=== PATIENT | female | born 1940 | race Caucasian/White ===

== ENCOUNTER 2018-05-01 05:29 | Outpatient (REF) | payer MEDICARE, OTHER, SELFPAY ==
[2018-05-01 06:24] LABS: Bilirubin Negative (Negative); Blood Trace-lysed (Negative); Clarity Sl Cloudy; Glucose Negative (Negative); Ketones Negative (Negative); Leukocyte Esterase Small (Negative); Nitrite Negative (Negative); Urobilinogen 0.2 EU/dL (Up TO 0.2)
[2018-05-01 06:30] LABS: WBC >50 HPF (0-5)
[2018-05-01 06:31] LABS: Bacteria Moderate HPF (Negative); C & S Indicated? Yes; Casts Negative LPF (Negative); Crystals Negative HPF (Negative); Epithelial Cells Few HPF (Negative); Mucus Negative (Negative)
== END 2018-05-01 05:49 ==
LOC: LBN 05:29
PROVIDERS: PCP Nurse Practitioner Family; Visit Provider Nurse Practitioner Family
DX: R50.9 Fever, unspecified (principal); R82.90 Unspecified abnormal findings in urine
CPT/HCPCS: 81003; 81015; 87086

== ENCOUNTER 2018-05-03 14:41 | Emergency (ER) | payer MEDICARE, OTHER, SELFPAY ==
[2018-05-03 14:39] VITALS: BP 60/43; PULSE 74; RESP 18; TEMP 36.9; O2SAT 97
[2018-05-03 14:50] VITALS: BP 72/42
--- NOTE | 2018-05-03 14:51 | W.ED.GENAD ---
Discharge Plan Disposition Patient Disposition: [facility] Condition: Fair Discharge Details Chief Complaint: Dizzy/Sync Clinical Impression: Hypotension, Acute dehydration, Hypomagnesemia Primary Care Provider: Jessica Ramos ED Provider: Rosana Billingsley Discharge Instructions Instructions: Dehydration (ED), Hypomagnesemia (ED) Additional Instructions: Please encourage hydration. She should have her magnesium, lactate and CBC reassess tomorrow. Please begin magnesium supplementation daily. Please follow-up with primary care provider within the next 48 hours. If she develops recurrent hypotension, chest pain, shortness of breath, fever or other new/worsening symptoms please seek care urgently once again Referrals: Jessica Ramos [Primary Care Provider] - Discharge Data Discharge Date/Time-TO BE ENTERED AT DEPARTURE: 05/03/18 20:58 Medical Decision Making MDM Narrative Medical decision making narrative: Patient presents today with chief complaint of hypotension. Upon arrival, the automatic blood pressure is found to be 60/43, manual 72/42. Only taking blood pressure in the right arm is patient has history of breast cancer and blood pressures are not to be taken on the left side. Patient reports that she is feeling slightly lightheaded. Appears otherwise well. Her neuro exam is limited secondary to her quadriplegia. She is able to move her left foot slightly as well as her bilateral hands, more so the right than the left. She denies any headache. No shortness of breath, chest pain. Vital signs are otherwise stable. She is not tachycardic, tachypneic, hypoxic. She is afebrile. Denies any cough. Reports that she has been afebrile. Has responded well to fluids over the weekend. We will attempt fluid resuscitation obtain laboratory evaluation. I did consider possibly stemming from her recent neurologic injury. However, it seems too far out to be related as her injury was March 14. Patient has not been on any steroids recently. She does take Lisinopril daily, unclear if she has received this recently. Laboratory evaluation significant for a magnesium of 1.1. Troponin is less than 0.02. No leukocytosis. No anemia. Chemistries are pending. We will begin replenishing the magnesium. There is delay in the chemistries being processed secondary to the blood work having been drawn at outside facility. I did contact the lab, approximately 2 hours after initial orders and they are now performing a chemistry Chemistries are significant abnormality, in particular, the potassium is within normal limits Discussed the case with Dr. Greene. We discussed the possible sources of her hypotension for the past few days. It is unlikely given the length since her injury that this is neurogenic. We discussed it could be infected particularly she is having difficulty with sensing any areas of infection. We will obtain a urinalysis and chest x-ray. Will also obtain a lactate. Will be also evaluated the labs and advised patient is appearing dehydrated given the bicarb and anion gap. Patient is received 1 L fluid thus far. Is receiving 4 g of IV magnesium. Chest x-ray reviewed by radiologist. They advised bilateral interstitial pattern of chronic changes in the lungs. Poor visualization of the right costophrenic angle, small effusion versus chronic pleural parenchymal changes per no pneumothorax. No cardiomegaly. Patient hydrating orally. Responded well to hydration. Has recieved magnesium. Her BP has been stable since receiving fluids, BP currently 118/64. She reports that she is feeling much improved, no longer having feeling of lightheadedness. I am concerned that the patient is dehydrated as she is unable to hydrate herself secondary to her recent injury and associated neurologic deficits. She reports that she asks people to give her a drink when they visit. However, I am concerned that, given her very pleasant demeanor and wish to not put others out, she is not getting as much hydration as she needs. We discussed needing to ask for this more. Luckily, the patient is in a place at this time that staff can assist her with this further. Hypomagnesemia may also have been contributing her her poor feeling and has been replenished. She is able to be followed closely and hydration be increased by staff. I have asked that patients blood work be reassessed tomorrow. ADvised on new/worsening symptoms and when to seek care urgently once again. Encouraged hdyration. Discussed plan with patient who is in agreeent, all of her questions adn concerns were addressed. HPI - General Adult General Mode of arrival: EMS. Date/Time Provider Initiated Documentation: 05/03/18 14:47. Limitations to Documentation: no limitations. Information obtained by: patient. HPI Narrative: Patient is 78-year-old female presenting today with chief complaint of hypotension. Patient was transferred here from [facility] where she is currently undergoing rehabilitation after spinal cord injury. She reports that on March 14 she fell and suffered an injury to her neck resulting in near total quadriplegic. She reports she is regaining some of the movement of her left foot and bilateral upper extremities. States that for the past 3 days she has been having difficulty with hypotension with blood pressures in the 60s over 40s. She reports that typically her blood pressures no low reports systolic of 110-120 is typical. Patient states that she feels lightheaded at times when blood pressure is low. She reports that when she becomes lightheaded she asked nursing staff to reassess her blood pressure. She reports that they are taking both manually and automatically. Her symptom of lightheadedness has reliably been at times when blood pressure has been low. Patient has history of anterior spinal artery compression syndrome, quadriplegia, intracranial injury, nondrug cerebral aneurysm, bradycardia, essential hypertension, GERD, type 2 diabetes, abdominal aortic aneurysm without rupture, breast cancer. EMS reports that blood pressure was 90/54 when he first arrived and was noted to be 93/59 in route. 97% on room air, heart rate of 74. Patient reports feeling well in the ambulance reports that she is currently having some lightheadedness. She denies any chest pain, difficulty breathing, shortness of breath. Patient takes daily aspirin, atorvastatin, 40 mg subcu Lovenox lisinopril, metformin. Related Data Allergies Allergy/AdvReac Type Severity Reaction Status Date / Time No Known Allergies Allergy Unverified 05/03/18 17:03 General Stated Complaint: Dizzy/Sync BEVERLY: 2 Review of Systems Constitutional Reports as per HPI, Denies chills, Denies fatigue, Denies fever(s) and Denies headache(s) Eyes Patient Reports as per HPI and Denies change in vision ENT Denies headache(s) Cardiovascular Denies chest pain, Denies chest pain at rest, Denies chest pain with activity, Denies pedal edema, Denies edema, Denies dyspnea and Denies dyspnea on exertion Respiratory Denies chest congestion, Denies cough, Denies dyspnea and Denies dyspnea on exertion Gastrointestinal Reports as per HPI, Denies change in bowel habits and Denies vomiting Genitourinary Reports other (patient has catheter placed) Musculoskeletal Reports as per HPI Integumentary/Breasts Denies rash Neurologic Reports as per HPI and Denies headache(s) Endocrine Denies fatigue Exam Const General: cooperative, healthy appearing, comfortable, no acute distress, well developed and well groomed Nutritional Appearance: overweight Orientation: alert and awake HENMT Head: normal to inspection and normocephalic Ears: hearing grossly normal bilaterally, external ears normal and TM's normal bilaterally General nose exam: external nose normal Mouth: oral mucosae normal Throat: posterior oropharynx normal Eyes General: appearance normal, both eyes and all related structures Eyelids: eyelids normal Conjunctivae: conjunctivae normal Pupils: PERRL EOM: EOM intact bilaterally Neck Neck: not normal to visual inspection (patient in collar in the post operative setting) Resp Effort & Inspection: normal respiratory effort, able to speak in complete sentences and no respiratory distress Auscultation: clear to auscultation bilaterally Cardio Rate: regular rate Rhythm: regular rhythm Heart Sounds: S1 normal and S2 normal GI Inspection: normal to inspection, no abdominal wall ecchymosis and no edema Palpation: soft, no hepatosplenomegaly, no guarding, not rigid and nontender Auscultation: normal bowel sounds Skin General skin exam: no rashes or lesions noted Lesions: no lesions Rashes: no rashes Neuro General: alert, awake and oriented x3 Cognition: normal cognition Speech: speech normal Motor: strength not 5/5 throughout (Patient is able to move the right hand some, left arm is weaker. Able to move right toes, no movement in LLE. Patient reports this is typical and continues to improve) Sensory Exam: sensory deficits noted (sensory deficits noted throughout) Course Vital Signs Temperature 36.9 C 05/03/18 14:39 Pulse 74 05/03/18 14:39 Respiratory Rate 18 05/03/18 14:39 Blood Pressure 60/43 L 05/03/18 14:39 Pulse Oximetry 97 05/03/18 14:39 Temperature 36.9 C 05/03/18 14:39 Pulse 74 05/03/18 14:39 Respiratory Rate 18 05/03/18 14:39 Blood Pressure 72/42 L 05/03/18 14:50 Pulse Oximetry 97 05/03/18 14:39
[2018-05-03] MEDS: Normal Saline Flush 10 ML SYR IVP (15:10)
[2018-05-03] MEDS: Normal Saline 1,000 ML 1000 ML IV (15:10)
[2018-05-03 15:56] LABS: Magnesium 1.1 mg/dL (1.8-2.4)
[2018-05-03 15:58] LABS: Troponin I < 0.02 ng/mL (0.00-0.06)
[2018-05-03 16:51] LABS: Abs Immature Grans 0.02 k/cumm (0.0-0.09); Absolute Basophil Count 0.04 k/cumm (0.0-0.2); Absolute Monocyte Count 0.49 k/cumm (0.11-0.7); Absolute Neutrophil Count 3.39 k/cumm (1.2-6.7); Basophils % 0.7; Immature Grans % 0.3; Lymphocytes % 29.8; Mean Corp. HGB Concentration 32.4 g/dL (32.0-36.0); Mean Corpuscular Hemoglobin 30.7 pg (27.0-33.0); Mean Corpuscular Volume 94.6 fL (80-95); Mean Platelet Volume 10.5 fL (8.0-11.0); Monocytes % 8.1; Neutrophils % 56.1; Platelet Count 187 x1000/uL (130-400); RBC 3.91 m/cumm (4.00-5.20); RBC Distribution Width 13.2 % (11.7-14.6); White Blood Cell Count 6.04 k/cumm (4.4-10.8)
[2018-05-03 16:58] VITALS: RESP 18
[2018-05-03] MEDS: MAGNESIUM SULFATE 4 GM/100 ML BAG IVPB (17:00)
[2018-05-03 17:36] LABS: ALT 83 U/L (12-78); AST 53 U/L (15-37); Albumin 2.9 g/dL (3.4-5.0); Alkaline Phosphatase 69 U/L (46-116); Anion Gap 12.4 mmol/L (3-11); BUN 15 mg/dL (7-18); Bilirubin, Total 0.4 mg/dL (0.2-1.0); CO2 20.6 mmol/L (21.0-32.0); CREATININE 0.95 mg/dL (0.55-1.02); Calcium 8.8 mg/dL (8.5-10.1); Chloride 99 mmol/L (98-107); Estimated GFR 56.89 (mL/min/1.73m2); Glucose 108 mg/dL (70-100); Potassium 3.9 mmol/L (3.5-5.1); Sodium 132 mmol/L (136-145); Total Protein 6.5 g/dL (6.4-8.2)
--- NOTE | 2018-05-03 17:51 | DI.RAD_ITS ---
SYMPTOM/DIAGNOSIS: HYPOTENSION AP CHEST: Increased interstitial markings are noted in the lungs consistent with chronic change. No infiltrate is seen. The possibility of a small pleural effusion could not be entirely excluded on the right side. There is no pneumothorax. The heart is unremarkable. The mediastinum is unremarkable. Orthopedic hardware is noted in the cervical spine. IMPRESSION: Bilateral interstitial pattern consistent with chronic pulmonary disease. There is poor visualization of the right costophrenic angle which could represent a small pleural effusion or chronic scarring.
[2018-05-03] MEDS: Normal Saline 250 ML 500 ML IV (18:00)
[2018-05-03 18:23] LABS: Lactate-non-spesis 2.4 mmol/L (0.6-1.4)
[2018-05-03 18:46] LABS: Bilirubin Negative (Negative); Blood Negative (Negative); Clarity Clear; Glucose Negative (Negative); Ketones Negative (Negative); Leukocyte Esterase Small (Negative); Nitrite Negative (Negative); Urobilinogen 0.2 EU/dL (Up TO 0.2)
[2018-05-03 18:59] LABS: Epithelial Cells Few HPF (Negative); RBC Negative (0-2); WBC 20-50 HPF (0-5)
[2018-05-03 19:00] LABS: Bacteria Negative HPF (Negative); C & S Indicated? Yes; Casts Negative LPF (Negative); Crystals Few Calcium Oxalate HPF (Negative); Mucus Negative (Negative)
--- NOTE | 2018-05-03 19:49 | DI.VRAD_ITS ---
EXAM: XR Chest, 1 View CLINICAL HISTORY: 78 years old, female; Signs and symptoms; Other: Hypotension; Prior surgery TECHNIQUE: Frontal view of the chest. COMPARISON: CT - CHEST WITHOUT CONTRAST 03/12/2017 1:54 PM FINDINGS: Lungs: Bilateral interstitial pattern of chronic changes in the lungs. No acute infiltrates. Pleural space: Cannot rule out small pleural effusion on the right. No pneumothorax. Heart: Unremarkable. No cardiomegaly. Mediastinum: Unremarkable. Bones/joints: Orthopedic hardware cervical spine, status post posterior instrumentation. IMPRESSION: Bilateral interstitial pattern of chronic changes in the lungs. Poor visualization of the right costophrenic angle, small effusion versus chronic pleuroparenchymal changes. Dictated and Authenticated by: Glen Mora MD. Ordering:KATHLEEN REES MD
[2018-05-03 20:46] VITALS: BP 118/64; PULSE 64; RESP 20; TEMP 36.3; O2SAT 99
== END 2018-05-03 20:58 | disposition intermediate care facility (04) ==
PROVIDERS: Emergency Provider Physician Assistant; PCP Nurse Practitioner Family
DX: I95.9 Hypotension, unspecified (principal); E86.0 Dehydration; E83.42 Hypomagnesemia; E11.9 Type 2 diabetes mellitus without complications; Z79.84 Long term (current) use of oral hypoglycemic drugs
CPT/HCPCS: 36415; 80053; 87077; 96361; 96374; 99284; 71045; 81003; 81015; 83605; 83735; 84443; 84484; 85025; 87086; 87186; J3475

== ENCOUNTER 2018-05-03 14:59 | Outpatient (REF) | payer MEDICARE, OTHER, SELFPAY | END 2018-05-03 15:19 | LOC: LBN 14:59 | PROVIDERS: PCP Nurse Practitioner Family; Visit Provider Family Medicine | DX: E11.9 Type 2 diabetes mellitus without complications (principal); I70.0 Atherosclerosis of aorta; Z85.3 Personal history of malignant neoplasm of breast | CPT/HCPCS: 80053; 85027 ==

== ENCOUNTER 2018-05-05 08:07 | Outpatient (CLI) | payer MEDICARE, OTHER, SELFPAY ==
[2018-05-05 08:01] LABS: HCT 35.6 % (36.0-46.0); HGB 11.7 g/dL (12.0-15.5); Mean Corp. HGB Concentration 32.9 g/dL (32.0-36.0); Mean Corpuscular Hemoglobin 31.5 pg (27.0-33.0); Mean Corpuscular Volume 95.7 fL (80-95); Mean Platelet Volume 10.1 fL (8.0-11.0); Platelet Count 176 x1000/uL (130-400); RBC 3.72 m/cumm (4.00-5.20); RBC Distribution Width 13.2 % (11.7-14.6); White Blood Cell Count 5.97 k/cumm (4.4-10.8)
[2018-05-05 08:20] LABS: Magnesium 1.4 mg/dL (1.8-2.4)
== END 2018-05-05 08:27 ==
PROVIDERS: PCP Nurse Practitioner Family; Visit Provider Nurse Practitioner Family
DX: I10 Essential (primary) hypertension (principal); E11.9 Type 2 diabetes mellitus without complications; K21.9 Gastro-esophageal reflux disease without esophagitis
CPT/HCPCS: 36415; 85027; 83605; 83735

== ENCOUNTER 2018-05-14 07:29 | Outpatient (REF) | payer MEDICARE, OTHER, SELFPAY ==
[2018-05-14 09:59] LABS: Magnesium 1.3 mg/dL (1.8-2.4)
== END 2018-05-14 07:49 ==
LOC: LBN 07:29
PROVIDERS: PCP Nurse Practitioner Family; Visit Provider Family Medicine
DX: G82.50 Quadriplegia, unspecified (principal); I10 Essential (primary) hypertension; E11.9 Type 2 diabetes mellitus without complications; E83.42 Hypomagnesemia
CPT/HCPCS: 83735

== ENCOUNTER 2018-06-22 14:55 | Outpatient (REF) | payer MEDICARE, OTHER, SELFPAY ==
[2018-06-22 16:32] LABS: Bilirubin Negative (Negative); Blood Negative (Negative); Clarity Clear; Glucose Negative (Negative); Ketones Negative (Negative); Leukocyte Esterase Negative (Negative); Nitrite Negative (Negative); Specific Gravity <= 1.005 (1.005-1.025); Urobilinogen 0.2 EU/dL (Up TO 0.2); pH 5.5 (5-8)
== END 2018-06-22 15:15 ==
LOC: LBN 14:55
PROVIDERS: PCP Nurse Practitioner Family; Visit Provider Family Medicine
DX: R50.9 Fever, unspecified (principal)
CPT/HCPCS: 81003

== ENCOUNTER 2018-06-23 16:05 | Emergency (ER) | payer MEDICARE, OTHER, SELFPAY ==
[2018-06-23] VITALS (16 sets, daily range): BP systolic 103–119; BP diastolic 56–71; PULSE 71–94; RESP 18–28; TEMP 36.9–37.1; O2SAT 95–98
[2018-06-23 16:47] LABS: BE (Venous) 0.1 mmol/L (-3-3); HCO3 (Venous) 24 mmol/L (22-28); O2 Sat (Venous) 95 % (70-80); TCO2 (Venous) 22 mmol/L (22-29); pCO2 (Venous) 34 mm/Hg (34-47); pH (Venous) 7.46 (7.32-7.43); pO2 (Venous) 65 mm/Hg (28-44)
[2018-06-23 16:57] LABS: Abs Immature Grans 0.04 k/cumm (0.0-0.09); Absolute Basophil Count 0.02 k/cumm (0.0-0.2); Absolute Eosinophil Count 0.05 k/cumm (0.0-0.7); Absolute Lymphocyte Count 2.25 k/cumm (1.2-3.4); Absolute Monocyte Count 0.67 k/cumm (0.11-0.7); Absolute Neutrophil Count 3.87 k/cumm (1.2-6.7); Basophils % 0.3; Eosinophils % 0.7; HCT 34.7 % (36.0-46.0); HGB 11.6 g/dL (12.0-15.5); Immature Grans % 0.6; Lymphocytes % 32.6; Mean Corp. HGB Concentration 33.4 g/dL (32.0-36.0); Mean Corpuscular Hemoglobin 30.8 pg (27.0-33.0); Mean Platelet Volume 10.2 fL (8.0-11.0); Monocytes % 9.7; Neutrophils % 56.1; Platelet Count 195 x1000/uL (130-400); RBC 3.77 m/cumm (4.00-5.20); RBC Distribution Width 15.2 % (11.7-14.6)
[2018-06-23 17:05] LABS: ALT 30 U/L (12-78); AST 34 U/L (15-37); Albumin 2.7 g/dL (3.4-5.0); Alkaline Phosphatase 65 U/L (46-116); Anion Gap 11.3 mmol/L (3-11); BUN 15 mg/dL (7-18); Bilirubin, Total 0.5 mg/dL (0.2-1.0); CO2 23.7 mmol/L (21.0-32.0); CREATININE 0.82 mg/dL (0.55-1.02); Calcium 9.2 mg/dL (8.5-10.1); Chloride 95 mmol/L (98-107); Glucose 92 mg/dL (70-100); Potassium 4.2 mmol/L (3.5-5.1); Sodium 130 mmol/L (136-145); Total Protein 6.7 g/dL (6.4-8.2)
[2018-06-23 17:12] LABS: Troponin I < 0.02 ng/mL (0.00-0.06)
--- NOTE | 2018-06-23 18:35 | W.ED.GENAD ---
Discharge Plan Disposition Patient Disposition: HOME Condition: Good Discharge Details Chief Complaint: Fever Clinical Impression: Tachypnea, Pneumonia Reason For Visit: AG Primary Care Provider: Jessica Ramos ED Provider: Evaristo Telles Home Meds and New Rx's Prescriptions: No Action multivitamin Tablet 1 tab PO DAILY RF: 0 metformin 500 mg Tablet 500 mg PO BID RF: 0 anastrozole 1 mg Tablet 1 mg PO DAILY RF: 0 sennosides [senna] 8.6 mg Tablet 8.6 mg PO BID RF: 0 atorvastatin 10 mg Tablet 10 mg PO HS RF: 0 melatonin 3 mg Tablet 3 mg PO PRN PRNRF: 0 aspirin 81 mg Tablet,Delayed Release (Dr/Ec) 81 mg PO DAILY RF: 0 acetaminophen 500 mg Tablet 1,000 mg PO TID RF: 0 baclofen 10 mg Tablet 10 mg PO TID RF: 0 pantoprazole [Protonix] 40 mg Tablet,Delayed Release (Dr/Ec) 40 mg PO DAILY RF: 0 lidocaine [Lidoderm] 5 % Adhesive Patch,Medicated 5 patch Transdermal RF: 0 carbamide peroxide [Debrox] 6.5 % Drops 5 drp otic (ear) BID RF: 0 docusate sodium 100 mg Capsule 100 mg PO BID RF: 0 collagenase clostridium histo. [Santyl] 250 unit/gram Ointment Topical DIRECTED RF: 0 amoxicillin-pot clavulanate [Augmentin] 875-125 mg Tablet 1 tab PO BID RF: 0 enoxaparin [Lovenox] 40 mg/0.4 mL Syringe 40 mg subcut DAILY RF: 0 magnesium oxide 400 mg Capsule 400 mg PO BID RF: 0 Discharge Instructions Instructions: Pneumonia (ED) Additional Instructions: Please continue taking your antibiotic. if you notice any worsening of your symptoms, or any new symptoms such as vomiting, diarrhea, fever, chills, shortness of breath, chest pain, numbness, weakness, or fainting , please return immediately to the emergency department for reevaluation. Please follow up with your primary care provider as soon as possible for reassessment and reevaluation. As always, it was a pleasure participating in your medical care today. Referrals: Jessica Ramos [Primary Care Provider] - Discharge Data Discharge Date/Time-TO BE ENTERED AT DEPARTURE: 06/23/18 18:49 Medical Decision Making This is a pleasant 78-year-old female with a history of quadriplegia who was recently diagnosed with pneumonia and started on Augmentin on an outpatient basis roughly 24 hours ago. At the patient's care facility was concerned that she was to tachypneic in the 50s, had a mild fever, and was diaphoretic. On EMS arrival her oxygen saturations are normal, her breathing rate was in the 20s-30s. Patient had no complaints at that time aside from mild cough. She showed no signs of respiratory distress. She is brought here for further evaluation. On arrival patient did have some sweating on her face, however she made very clear that I always sweat my face, they took away my damn fan and now I am extra sweaty. To her point she shows no signs of diaphoresis or sweatiness anywhere else on her body. The remainder of her physical exam does demonstrate some crackles in the left base, no fever, tachycardia, or hypoxemia. Here in the emergency department her respiratory rate is 20-25. She has belly breathing, but this is what she normally breathes at with her chronic quadriplegia and chronic weakness in position. Because of her initial symptoms laboratory workup was performed, and demonstrates no significant white count, bandemia, renal dysfunction, or significant dehydration. She is slightly hyponatremic at 130, ABG demonstrates a relatively benign pH with minimal alkalosis, most likely secondary to a respiratory component. No evidence of CO2 retention. No signs of hypoxemia. Patient did not require any supplemental oxygen to maintain a stable oxygen saturation. Troponin was normal, EKG was benign. After a unremarkable laboratory workup, normal vital signs, and a reassuring physical exam we did contact the physician on-call at her facility. We discussed the case, physical exam findings, and current clinical scenario. After review of the labs, and the patient scenario, we did elect with the approval of the on-call care facility physician for return to the facility. I feel that she can be continued on her home Augmentin. We discussed red flags for which to return. Plan was discussed with the on-call physician and she agreed. I have extensively reviewed the treatment plan with the patient. I have addressed all patient concerns at this time. I have also discussed the plan with the on-call facility physician and they agree with the current assessment and plan and have agreed to assume responsibility for the patient. All parties demonstrate verbal understanding and agreement with our assessment and plan at this time. AP CHEST: There is a poor inspiration. Cardiac silhouette is within normal limits. The pulmonary vasculature is within normal limits. There are increased lung markings in the left lung base laterally suspicious for pneumonia. The right lung appears clear. No gross effusions or pneumothoraces are identified. IMPRESSION: Left basilar infiltrate laterally suspicious for a pneumonia. HPI General Date/Time Provider Initiated Documentation: 06/23/18 16:10. HPI Narrative: This is a 78-year-old female with a past medical history of quadriplegia, intracerebral aneurysm, AAA, breast cancer, diabetes who takes regular Lovenox for DVT prophylaxis, who lives at an extended care facility who presents today for evaluation of fever and cough. Yesterday the patient was developing a cough, she had an outpatient x-ray was performed that demonstrated concerns for potential pneumonia. She was started on Augmentin at her facility. She has taken roughly 2-3 doses of this on an outpatient basis at her facility. Nursing staff at this facility stated today that the patient was having some belly breathing, increased tachypnea with a rate of 50, and hypoxemia at 92%. There was also concern that she had a fever of 100.5 at the facility. She did have a urinalysis that was performed with the last 48 hours which was negative for any signs of infection. Because of these symptoms patient was sent to the ER for further evaluation via EMS. When EMS arrived they stated that the patient's respiratory rate was in the high 20s to low 30s. She did have some belly breathing, as well as some sweating only on her face. Oxygen saturations per EMS for transport and on their initial arrival were 93% or higher. They noted no other abnormalities. The patient has no complaints at this time. She denies chest pain, shortness of breath, chills, numbness, tingling, or respiratory distress. She denies any other aggravating or modifying factors. She has no other complaints at this time. Related Data Home Medications Medication Instructions Recorded Confirmed acetaminophen 1,000 mg PO TID 06/23/18 06/23/18 amoxicillin-pot clavulanate 1 tab PO BID 06/23/18 06/23/18 [Augmentin] anastrozole 1 mg PO DAILY 06/23/18 06/23/18 aspirin 81 mg PO DAILY 06/23/18 06/23/18 atorvastatin 10 mg PO HS 06/23/18 06/23/18 baclofen 10 mg PO TID 06/23/18 06/23/18 carbamide peroxide [Debrox] 5 drp OTIC (EAR) BID 06/23/18 06/23/18 collagenase clostridium histo. TOPICAL DIRECTED 06/23/18 06/23/18 [Santyl] docusate sodium 100 mg PO BID 06/23/18 06/23/18 enoxaparin [Lovenox] 40 mg SUBCUT DAILY 06/23/18 06/23/18 lidocaine [Lidoderm] 5 patch TRANSDERMAL 06/23/18 06/23/18 magnesium oxide 400 mg PO BID 06/23/18 06/23/18 melatonin 3 mg PO PRN PRN 06/23/18 06/23/18 metformin 500 mg PO BID 06/23/18 06/23/18 multivitamin 1 tab PO DAILY 06/23/18 06/23/18 pantoprazole [Protonix] 40 mg PO DAILY 06/23/18 06/23/18 sennosides [senna] 8.6 mg PO BID 06/23/18 06/23/18 Allergies Allergy/AdvReac Type Severity Reaction Status Date / Time No Known Allergies Allergy Unverified 05/03/18 17:03 General Stated Complaint: Fever BEVERLY: 2 Review of Systems Review of Systems All systems reviewed & are unremarkable except as noted in HPI and below Exam Narrative Exam Narrative: 1.Const: Thin, showing evidence of her chronic quadriplegia 2.Eyes: PERRL, no conjunctival injection, and symmetrical lids. 3.ENT: Atraumatic external nose and ears. Moist MM. Neck: Symmetric, trachea midline, No thyromegaly. 4.CVS: +S1/S2, No murmurs or gallops. Peripheral pulses 2+ and equal in all extremities. Brisk capillary refill in all extremities. 5.RESP: Unlabored respiratory effort. Mild crackles in the lungs, primarily on the left. Patient primarily does appear to be belly breathing, which she states is normal for her with her quadriplegia. No rhonchi or rales. No significant intercostal retractions. 6.GI: Soft, Nontender/Nondistended, No hepatosplenomegaly. No guarding or rebound. 7.MSK: Normocephalic/Atraumatic, extremities do appear thin, slightly distorted secondary to her quadriplegia. 8.Skin: Warm, No rashes or lesions. Patient does demonstrate sweating on her face, but no other locations. No diaphoresis on her chest abdomen or extremities. 9.Neuro: guest associate II-XII grossly intact. Sensation grossly intact, at chronic neurologic baseline 10.Psych: (AAO) x3. Appropriate mood and affect Course Vital Signs Temperature 36.9 C 06/23/18 16:07 Pulse 94 H 06/23/18 16:07 Respiratory Rate 20 06/23/18 16:07 Blood Pressure 115/61 06/23/18 16:07 Pulse Oximetry 95 06/23/18 16:07 Temperature 36.9 C 06/23/18 16:07 Temperature Source Oral 06/23/18 16:07 Pulse 74 06/23/18 18:15 Pulse 76 06/23/18 18:20 Respiratory Rate 28 H 06/23/18 16:30 Blood Pressure 119/63 06/23/18 18:15 Blood Pressure Mean 77 06/23/18 18:15 Pulse Oximetry 97 06/23/18 18:20 Oxygen Delivery Method Room Air 06/23/18 16:45 Oxygen Flow Rate 0 06/23/18 16:45 Pain Level 7 06/23/18 16:07 Lab/Test Results Lab/Test Results: Laboratory Tests Range/Units 06/23/18 06/23/18 06/23/18 16:30 16:30 16:30 WBC (4.4-10.8) k/cumm 6.90 RBC (4.00-5.20) m/cumm 3.77 L Hgb (12.0-15.5) g/dL 11.6 L Hct (36.0-46.0) % 34.7 L MCV (80-95) fL 92.0 MCH (27.0-33.0) pg 30.8 MCHC (32.0-36.0) g/dL 33.4 RDW (11.7-14.6) % 15.2 H Plt Count (130-400) x1000/uL 195 MPV (8.0-11.0) fL 10.2 Immature Gran % 0.6 Neutrophils % 56.1 Lymphocytes % 32.6 Monocytes % 9.7 Eosinophils % 0.7 Basophils % 0.3 Absolute Neutrophils (1.2-6.7) k/cumm 3.87 Absolute Lymphocytes (1.2-3.4) k/cumm 2.25 Absolute Monocytes (0.11-0.7) k/cumm 0.67 Absolute Eosinophils (0.0-0.7) k/cumm 0.05 Absolute Basophils (0.0-0.2) k/cumm 0.02 VBG pH (7.32-7.43) 7.46 H VBG pCO2 (34-47) mm/Hg 34 VBG pO2 (28-44) mm/Hg 65 H VBG HCO3 (22-28) mmol/L 24 VBG Total CO2 (22-29) mmol/L 22 VBG O2 Saturation (70-80) % 95 H VBG Base Excess (-3-3) mmol/L 0.1 Sodium (136-145) mmol/L 130 L Potassium (3.5-5.1) mmol/L 4.2 Chloride (98-107) mmol/L 95 L Carbon Dioxide (21.0-32.0) mmol/L 23.7 Anion Gap (3-11) mmol/L 11.3 H BUN (7-18) mg/dL 15 Creatinine (0.55-1.02) mg/dL 0.82 Estimated GFR/1.73 m2 (mL/min/1.73m2) >= 60.00 Glucose (70-100) mg/dL 92 Calcium (8.5-10.1) mg/dL 9.2 Total Bilirubin (0.2-1.0) mg/dL 0.5 AST (15-37) U/L 34 ALT (12-78) U/L 30 Alkaline Phosphatase (46-116) U/L 65 Troponin I (0.00-0.06) ng/mL < 0.02 Total Protein (6.4-8.2) g/dL 6.7 Albumin (3.4-5.0) g/dL 2.7 L
== END 2018-06-23 18:49 | disposition home or self-care (01) ==
PROVIDERS: Emergency Provider Student in an Organized Health Care Education/Training Program; PCP Nurse Practitioner Family
DX: R06.82 Tachypnea, not elsewhere classified (principal); J18.9 Pneumonia, unspecified organism; I10 Essential (primary) hypertension; G82.50 Quadriplegia, unspecified; E11.9 Type 2 diabetes mellitus without complications
CPT/HCPCS: 36415; 80053; 82805; 93005; 99284; 84484; 85025; 93010

== ENCOUNTER 2019-06-16 16:51 | Emergency (ER) | payer MEDICARE, OTHER, SELFPAY ==
[2019-06-16] VITALS (32 sets, daily range): BP systolic 91–156; BP diastolic 40–92; PULSE 60–102; RESP 15–24; TEMP 37.1; O2SAT 92–96
--- NOTE | 2019-06-16 17:09 | ED.GENADUL_ITS ---
Discharge Plan Disposition Patient Disposition: HOME Condition: Stable Discharge Details Chief Complaint: Urinary Clinical Impression: Urinary tract infection, Suprapubic catheter dysfunction Primary Care Provider: Jessica Ramos ED Provider: Mundo Reed Home Meds and New Rx's Prescriptions: New cephalexin 500 mg capsule 500 mg PO TID 7 Days Qty: 21 RF: 0 Florastor 250 mg capsule 250 mg PO BID Qty: 20 RF: 0 Continued gabapentin [Neurontin] 400 mg Capsule 400 mg PO DAILY RF: 0 calcium carbonate-vitamin D3 [Calcium 500 With D] 500 mg(1,250mg) -400 unit Tablet 1 tab PO BID RF: 0 levothyroxine 125 mcg Tablet 1 mcg PO DAILY RF: 0 gabapentin 600 mg Tablet 600 mg PO .QHS RF: 0 omeprazole 20 mg Capsule,Delayed Release(Dr/Ec) 20 mg PO DAILY RF: 0 polyethylene glycol 3350 [Miralax] 17 gram Powder In Packet .QHS RF: 0 multivitamin Tablet 1 tab PO DAILY RF: 0 metformin 500 mg Tablet 500 mg PO BID RF: 0 anastrozole 1 mg Tablet 1 mg PO DAILY RF: 0 sennosides [senna] 8.6 mg Tablet 8.6 mg PO BID RF: 0 atorvastatin 10 mg Tablet 10 mg PO HS RF: 0 melatonin 3 mg Tablet 3 mg PO PRN PRNRF: 0 aspirin 81 mg Tablet,Delayed Release (Dr/Ec) 81 mg PO DAILY RF: 0 acetaminophen 500 mg Tablet 1,000 mg PO TID RF: 0 baclofen 10 mg Tablet 20 mg PO BID RF: 0 lidocaine [Lidoderm] 5 % Adhesive Patch,Medicated 5 patch Transdermal RF: 0 carbamide peroxide [Debrox] 6.5 % Drops 5 drp otic (ear) BID RF: 0 docusate sodium 100 mg Capsule 100 mg PO BID RF: 0 Santyl 250 unit/gram Ointment Topical DIRECTED RF: 0 magnesium oxide 400 mg Capsule 400 mg PO BID RF: 0 Discontinued amoxicillin-pot clavulanate [Augmentin] 875-125 mg Tablet 1 tab PO BID RF: 0 No Action ferrous sulfate 324 mg (65 mg iron) Tablet,Delayed Release (Dr/Ec) 324 mg PO DAILY RF: 0 Discharge Instructions Instructions: Urinary Tract Infection in Women (ED) Additional Instructions: Please follow-up with Helene Ramos in clinic for recheck in the next 5 to 6 days time. Continue your regular medications. Return to the ER for worsening discomfort or any other acute concerns; Particularly if you develop a fever, vomiting, or any other acute concerns including recurrent suprapubic catheter malfunction/clogging. 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 She states she has had 1 week of overflow incontinence into her diaper that she feels is coming from her urethra. She was recently on amoxicillin for a urinary tract infection, which she stopped due to intolerance/diarrhea 1 week ago. She presents with dark and concentrated urine with some sediment with report of hematuria at home after catheter change. Vital signs reveal temperature 37.1, pulse 85, blood pressure 112/49, 94 to 95% sat on room air. She is pleasant and without distress. Catheter changed and irrigated with urine output primarily through the urethra.. UA with positive large leuk esterase, positive protein. Urinalysis sent for culture. Started on Keflex for urinary tract infection. Given new refluix of urine from bladder through urethra, the patient referred for laboratory testing and CT images: The catheter appears to be withdrawn from the bladder. There is note of perirectal fat infiltration rectal wall thickening. Perirectal findings discussed with on-call surgery, Dr. Vargas. Patient has daily bowel movements, no indication for further surgical work-up at this time.. I replaced suprapubic catheter with 3 way catheter and return of yellow urine. Discussed with Dr. Briggs who agrees with leaving Dodson catheter in place for 4 to 6 weeks time. I will complete a course of Keflex for probable UTI. Patient states she wishes to establish local urologic care with Dr. Briggs. I will place the referral. She may follow-up with Dr. Helene Ramos for recheck and routine care. HPI General Mode of arrival: EMS . Date/Time Provider Initiated Documentation: 06/16/19 16:54 . Limitations to Documentation: no limitations . Information obtained by: patient . History of Present Illness 79 year old F presents to the emergency department with the chief complaint of Recurrent urinary tract infection with hematuria at home aft catheter chand, described as mild, Quality is described as dull and constant, and is localized to the pelvis. Patient reports no radiation. Patient started experiencing this hour(s) and it has been constant. No relieving factors improve symptom(s), No exacerbating factors reported . Patient notes malaise; denies fever/chills. Patient did receive the following treatments prior to arrival, other (Irrigated at home) Related Data Home Medications Medication Instructions Recorded Confirmed Santyl TOPICAL DIRECTED 06/23/18 06/23/18 acetaminophen 1,000 mg PO TID 06/23/18 06/16/19 anastrozole 1 mg PO DAILY 06/23/18 06/16/19 aspirin 81 mg PO DAILY 06/23/18 06/16/19 atorvastatin 10 mg PO HS 06/23/18 06/16/19 baclofen 20 mg PO BID 06/23/18 06/16/19 carbamide peroxide [Debrox] 5 drp OTIC (EAR) BID 06/23/18 06/16/19 docusate sodium 100 mg PO BID 06/23/18 06/16/19 lidocaine [Lidoderm] 5 patch TRANSDERMAL 06/23/18 06/23/18 magnesium oxide 400 mg PO BID 06/23/18 06/16/19 melatonin 3 mg PO PRN PRN 06/23/18 06/16/19 metformin 500 mg PO BID 06/23/18 06/16/19 multivitamin 1 tab PO DAILY 06/23/18 06/16/19 sennosides [senna] 8.6 mg PO BID 06/23/18 06/16/19 Saccharomyces boulardii [Florastor] 250 mg PO BID #20 cap 06/16/19 calcium carbonate-vitamin D3 1 tab PO BID 06/16/19 06/16/19 [Calcium 500 With D] cephalexin 500 mg PO TID 7 Days #21 cap 06/16/19 ferrous sulfate 324 mg PO DAILY 06/16/19 06/16/19 gabapentin 600 mg PO .QHS 06/16/19 06/16/19 gabapentin [Neurontin] 400 mg PO DAILY 06/16/19 06/16/19 levothyroxine 1 mcg PO DAILY 06/16/19 06/16/19 omeprazole 20 mg PO DAILY 06/16/19 06/16/19 polyethylene glycol 3350 [Miralax] .QHS 06/16/19 Previous Rx's Medication Instructions Recorded Saccharomyces boulardii [Florastor] 250 mg PO BID #20 cap 06/16/19 cephalexin 500 mg PO TID 7 Days #21 cap 06/16/19 Allergies Allergy/AdvReac Type Severity Reaction Status Date / Time No Known Allergies Allergy Unverified 06/16/19 16:59 General Stated Complaint: Urinary BEVERLY: 3 Review of Systems Narrative: Recently on amoxicillin for urinary tract infection which she states she stopped 1 week ago, no fever. No vomiting. Mild malaise. Sick systems reviewed and otherwise negative [facility] Social History Smoking/Tobacco Use Status: Former Tobacco Use Drug use: Never Do you feel safe in your relationship?: Yes Exam Narrative Exam Narrative: GEN: awake, alert, oriented 3. Pleasant, well groomed, interactive. HEAD: Normocephalic, atraumatic ENT: Mucous membranes moist, oropharynx unremarkable, External ear exam unremarkable EYES: PERRL, EOMI NECK: Full ROM, no SELWYN, no menigismus CHEST/RESP: Nontender, clear to auscultation bilateral, no wheeze/rhonchi/rales CARDIOVASCULAR: RRR, no murmur, rub john. 2+ Rad pulse bilateral ABDOMEN: Soft, nontender, no mass. Suprapubic catheter present, clean dry and intact. +Bowel sounds EXT: Spastic bilateral upper extremity. 3 out of 5 strength left lower extremity, minimal strength right lower extremity. 3 out of 5 left upper ext remity strength. Minimal strength right upper extremity. No edema, no rash Neuro: Interactive with otherwise unremarkable neurologic exam, conversant, interactive. Psych: Speech fluent, thoughts congruent, affect normal and pleasant Course Vital Signs Vital signs: Vital Signs Temperature 37.1 C 06/16/19 16:55 Pulse 85 06/16/19 16:55 Respiratory Rate 16 06/16/19 16:55 Blood Pressure 112/49 L 06/16/19 16:55 Pulse Oximetry 94 L 06/16/19 16:55 Temperature 37.1 C 06/16/19 16:55 Temperature Source Skin 06/16/19 16:55 Pulse 85 06/16/19 16:55 Respiratory Rate 16 06/16/19 16:55 Respiratory Effort Non-Labored 06/16/19 16:55 Blood Pressure 112/49 L 06/16/19 16:55 Blood Pressure Position Sitting 06/16/19 16:55 Pulse Oximetry 94 L 06/16/19 16:55 Oxygen Delivery Method Room Air 06/16/19 16:55 Oxygen Flow Rate 0 06/16/19 16:55 Pain Level 5 06/16/19 16:55 Comment 06/16/19 16:55
[2019-06-16] MEDS: Cephalexin 500 MG CAP PO (17:21)
[2019-06-16] MEDS: Ondansetron O.D.T. 4 MG TABEF PO (17:22)
[2019-06-16 17:33] LABS: Bilirubin Negative (Negative); Blood Large (Negative); Clarity Turbid (Clear); Glucose Negative (Negative); Ketones Negative (Negative); Leukocyte Esterase Large (Negative); Nitrite Negative (Negative); Specific Gravity 1.015 (1.005-1.025); Urobilinogen 0.2 EU/dL (Up TO 0.2)
[2019-06-16 17:46] LABS: RBC >50 (0-2); WBC >50 HPF (0-5)
[2019-06-16 17:48] LABS: C & S Indicated? C&S Done As Ordered
--- NOTE | 2019-06-16 18:47 | DI.CT_ITS ---
EXAM: CT PELVIC WO CLINICAL HISTORY: new suprapubic cath blocked, urethral reflux TECHNIQUE: Images were performed from the lower poles of the kidneys through the proximal femoral sh afts without oral or IV contrast. COMPARISON: No exams were available for comparison FINDINGS: Bladder catheter is seen. No tubing is seen within a tract seen from the anterior abdominal wall. No tubing is seen outside the patient. The bladder wall appears markedly thickened. There is some a ir within the bladder presumably related to recent instrumentation. No abscess or fluid collection i s seen in the anterior abdominal soft tissues. The uterus and ovaries are unremarkable. The rectum is distended with stool. A moderate quantity of stool is seen elsewhere in the visualized portions of the colon. There is an infrarenal abdominal aortic aneurysm measuring 3.8 cm in maximal dimension. The iliac arteries appear normal in diameter. The lower portions of the liver and kidneys are unrem arkable. The appendix appears normal. There are bilateral small fatty containing inguinal hernias. Degenerative changes are seen in the lower lumbar spine. IMPRESSION: 1. No evidence of a suprapubic catheter. Thick-walled bladder. 2. Large quantity of stool in the rectum. 3. Distal abdominal aortic aneurysm measuring 3.8 cm.
--- NOTE | 2019-06-16 19:00 | NUR.NOTE ---
Nursing Note: replaced liu and attempted irrigation with no return. bladder scanned pt with no urine noted in the bladder. upon inspection of vagina noted that pts brief was soaked with urine/saline pouring out. 3way irrigation d/c and md updated. ct scan ordered. liu d/c. replaced liu with 18fr 3way liu and 250mls of ns irrigation initiated and completed with 250mls of return. small amount of leakage still from urethra present but significantly less. unable to obtain labs/ iv access due to difficult iv stick attempted x2 with us pt unable to tolerate.
--- NOTE | 2019-06-16 19:19 | DI.VRAD_ITS ---
Addendum created by Prachi Martinez MD on 06/16/2019 7:22:26 PM EDT THIS REPORT CONTAINS FINDINGS THAT MAY BE CRITICAL TO PATIENT CARE. The findings were verbally communicated via telephone conference with ARMIN VILLARREAL at 7:22 PM EDT on 06/16/2019. The findings were acknowledged and understood. Initial report created on 06/16/2019 7:18:56 PM EDT PROCEDURE INFORMATION: Exam: CT Pelvis Without Contrast Exam date and time: 06/16/2019 6:33 PM Clinical history: 79 years old, female; Other: New suprapubic cath blocked, urethral reflux TECHNIQUE: Imaging protocol: Computed tomography images of the pelvis without contrast. Radiation optimization: All CT scans at this facility use at least one of these dose optimization techniques: automated exposure control; mA and/or kV adjustment per patient size (includes targeted exams where dose is matched to clinical indication); or iterative reconstruction. COMPARISON: No relevant prior studies available. FINDINGS: Tubes, catheters and devices: There is no definite catheter is noted in the bladder. The findings suggest possibly the catheter has pulled back out of the urinary bladder. Gallbladder and bile ducts: Cholecystectomy. Stomach and bowel: The rectal vault is stool distended measuring 7.2 cm. There is perirectal fat infiltration and rectal wall thickening. There is a large solid stool load. Appendix: No evidence of appendicitis. Bladder: There is no definite communication with the urinary bladder. Reproductive: Normal as visualized. Intraperitoneal space: Unremarkable. No free air. No significant fluid collection. Vasculature: Distal abdominal aortic aneurysm measuring 3.8 cm in maximum diameter and 3.8 cm in length. Lymph nodes: Unremarkable. No enlarged lymph nodes. Bones/joints: Multilevel degenerative changes of the lumbar spine. Degenerative changes of the right and left hip. Soft tissues: Umbilical hernia with omental fat. The fistulous track from the anterior abdominal wall to the anterior abdominal musculature is noted. Fat distention of the right and left inguinal canals. IMPRESSION: 1. The suprapubic catheter tip does not appear to be within the bladder. 2. Abnormal bladder wall thickening and irregularity. Air in the bladder consistent with recent instrumentation. 3. Solid stool distended rectum with thickened rectal wall and perirectal fat infiltration of concern for [place] colitis. 4. Distal abdominal aortic aneurysm measuring 3.8 cm in maximum diameter and 3.8 cm in length. Dictated and Authenticated by: Prachi Martinez MD. Ordering:TONI Flower MD
[2019-06-16] MEDS: Cephalexin 250 MG CAP PO (20:15)
== END 2019-06-16 20:30 | disposition home or self-care (01) ==
PROVIDERS: Emergency Provider Emergency Medicine; PCP Nurse Practitioner Family
DX: N39.0 Urinary tract infection, site not specified (principal); T83.091A Other mechanical complication of indwelling urethral catheter, initial encounter; G80.0 Spastic quadriplegic cerebral palsy; Z96.0 Presence of urogenital implants; Z87.440 Personal history of urinary (tract) infections
CPT/HCPCS: 51703; 80053; 99285; 72192; 81003; 81015; 85025; 85610; 87086; 99284

== ENCOUNTER → 2019-08-24 10:53 | Outpatient (BNVA) | payer MEDICARE, OTHER, SELFPAY | PROVIDERS: PCP Nurse Practitioner Family; Referring Provider Nurse Practitioner Family; Visit Provider Nurse Practitioner Gerontology | DX: N31.9 Neuromuscular dysfunction of bladder, unspecified (principal); Z46.6 Encounter for fitting and adjustment of urinary device; I10 Essential (primary) hypertension; E11.9 Type 2 diabetes mellitus without complications; Z79.84 Long term (current) use of oral hypoglycemic drugs | CPT/HCPCS: 99204; 99215 ==

== ENCOUNTER 2019-09-06 01:03 | Outpatient (CLI) | payer MEDICARE, OTHER, SELFPAY ==
--- NOTE | 2019-09-06 13:11 | DI.RAD_ITS ---
EXAM: XR KNEE LT 3V AP,LAT,LOUISA CLINICAL HISTORY: KNEE PAIN, SWELLING TECHNIQUE: COMPARISON: No exams were available for comparison FINDINGS: Four views were obtained. There is a total knee joint replacement in position. The components appea r well seated. No other significant bony abnormality seen. IMPRESSION:
[2019-09-06 14:46] LABS: HCT 37.8 % (36.0-46.0); Mean Corp. HGB Concentration 31.7 g/dL (32.0-36.0); Mean Corpuscular Volume 97.7 fL (80-95); Mean Platelet Volume 10.5 fL (8.0-11.0); Platelet Count 202 x1000/uL (130-400); RBC 3.87 m/cumm (4.00-5.20); RBC Distribution Width 14.6 % (11.7-14.6); White Blood Cell Count 9.78 k/cumm (4.4-10.8)
[2019-09-06 15:36] LABS: ESR 32 mm/hr (0-30)
[2019-09-06 16:04] LABS: Uric Acid 5.1 mg/dL (2.6-6.0)
[2019-09-06 21:46] LABS: CRP, High Sensitivity 2.63 mg/L (See Note)
[2019-09-09 16:07] LABS: CREATININE 0.95 mg/dL (0.55-1.02); Estimated GFR 56.75 (mL/min/1.73m2)
== END 2019-09-06 01:23 ==
PROVIDERS: PCP Nurse Practitioner Family; Visit Provider Nurse Practitioner Family
DX: M25.562 Pain in left knee (principal); Z96.652 Presence of left artificial knee joint; I10 Essential (primary) hypertension
CPT/HCPCS: 36415; 73562; 85027; 85652; 86141; 82565; 84550

== ENCOUNTER 2019-12-21 22:12 | Inpatient (IN) | payer MEDICARE, OTHER, SELFPAY ==
[2019-12-21] VITALS (19 sets, daily range): BP systolic 75–133; BP diastolic 39–75; PULSE 80–91; RESP 13–26; TEMP 37.7; O2SAT 92–96
--- NOTE | 2019-12-21 00:25 | DI.CT_ITS ---
EXAM: CT CHEST/ABD/PEL WO CLINICAL HISTORY: fever, paraplegia, diarrhea, MOLLY, B infiltrates. TECHNIQUE: Imaging Protocol: Axial computed tomography images with coronal and sagittal reformatted images were created and reviewed CONTRAST MATERIAL: Intravenous: Noncontrast Oral: / no COMPARISON: CT CHEST WITHOUT CONTRAST from 03/12/2017 CR XR CHEST 2V PA LATERAL from 05/03/2018 CR XR CHEST 1V IN DI DEPT from 06/22/[address] PELVIC WO from 06/16/2019 CR,XR XR PORTABLE CHEST AP from 12/21/2019 FINDINGS: The exam is limited by inability of the patient to breath hold as well as inability to move the arms out of the field of view. CHEST: Thyroid: Normal Tracheobronchial tree: Patent where visualized. Mediastinum and Z[place]ma: No dominant adenopathy or fluid collection. Pulmonary parenchyma: Evaluation of the lungs is limited by respiratory motion. There is evidence of underlying fibrotic changes. There is scarring seen anteriorly in the left upper lobe as well as bi basilar scarring or atelectasis. No consolidation or dominant measurable mass. . Pleura: No effusion or pneumothorax. Lymph nodes: Within normal limits. Aorta: Thoracic portion non-dilated. Moderate calcification Heart: Normal size. Coronary artery calcifications are seen. Aortic valvular calcification Is prese nt Bones: . Moderate degenerative changes are seen in the thoracic spine. ABDOMEN: Liver: Severe fatty infiltration no measurable mass. Gallbladder and biliary tract: Status post cholecystectomy. No radiodense calculus or dilation. Pancreas: Normal density, no abnormal calcifications or inflammatory process. Spleen: Normal. Kidneys: Normal size, contour and axis. No radiodense stones or obstructive uropathy. No masses seen. Adrenal glands: No masses seen. Aorta: Mild dilatation of the infrarenal portion to 3.4 cm. Moderate calcification.. Lymph nodes: Within normal limits. PELVIS: Bladder: Suprapubic catheter in place.. Bowel: There is a large quantity of stool seen distending the rectum. Moderate quantity of stool is seen throughout the colon. Mild diverticulosis. The appendix appears normal. There are mildly dila kahlil loops of small bowel centrally in the abdomen, anteriorly. No transition point is seen. No obst ruction or bowel wall thickening. Peritoneal cavity: No ascites, collection or mesenteric inflammatory response. Bones: Moderate to severe degenerative changes of the lumbar spine Reproductive organs: Within normal limits. IMPRESSION: Limited exam due to motion. Underlying fibrotic changes and mild atelectasis is seen in the chest. Large quantity of stool in the rectum. Mild nonspecific mid small bowel dilatation without evidence of obstruction. RADIATION DOSE DELIVERED: Total DLP DATA REPOSITORY: All CT scans at this facility are submitted to the National Radiology Data Registry (NRDR) Dose Index Registry (DIR) with the [employer] (A[employer]). RADIATION OPTIMIZATION: All CT scans at this facility use at least one of these dose optimization te chniques: automated exposure control; mA and/or kV adjustment per patient size (includes targeted exa ms where dose is matched to clinical indication); or iterative reconstruction.
--- NOTE | 2019-12-21 22:26 | W.ED.GENAD ---
Discharge Plan Disposition Patient Disposition: [facility] INPATIENT Condition: Fair Discharge Details Chief Complaint: Fever Clinical Impression: Acute UTI, Acute dehydration, MOLLY (acute kidney injury), Infiltrate of lung present on imaging of chest Primary Care Provider: Jessica Ramos ED Provider: Angel Cabrales [place] Meds and New Rx's Prescriptions: No Action gabapentin [Neurontin] 400 mg Capsule 400 mg PO DAILY RF: 0 calcium carbonate-vitamin D3 [Calcium 500 With D] 500 mg(1,250mg) -400 unit Tablet 1 tab PO BID RF: 0 levothyroxine 125 mcg Tablet 1 mcg PO DAILY RF: 0 gabapentin 600 mg Tablet 600 mg PO .QHS RF: 0 omeprazole 20 mg Capsule,Delayed Release(Dr/Ec) 20 mg PO DAILY RF: 0 Florastor 250 mg capsule 250 mg PO BID Qty: 20 RF: 0 polyethylene glycol 3350 [Miralax] 17 gram Powder In Packet 17 g PO .QHS RF: 0 ferrous sulfate 324 mg (65 mg iron) Tablet,Delayed Release (Dr/Ec) 324 mg PO DAILY RF: 0 diclofenac sodium 1 % gel 2 g TOPICAL QID RF: 0 Renacidin 1,980.6 mg-59.4 mg-980.4mg/30mL solution 30 ml irrigation DAILY RF: 0 multivitamin Tablet 1 tab PO DAILY RF: 0 metformin 500 mg Tablet 500 mg PO BID RF: 0 anastrozole 1 mg Tablet 1 mg PO DAILY RF: 0 sennosides [senna] 8.6 mg Tablet 8.6 mg PO BID RF: 0 atorvastatin 10 mg Tablet 10 mg PO HS RF: 0 melatonin 3 mg Tablet 3 mg PO PRN PRNRF: 0 aspirin 81 mg Tablet,Delayed Release (Dr/Ec) 81 mg PO DAILY RF: 0 acetaminophen 500 mg Tablet 1,000 mg PO TID RF: 0 baclofen 10 mg Tablet 20 mg PO BID RF: 0 lidocaine [Lidoderm] 5 % Adhesive Patch,Medicated 5 patch Transdermal DAILY RF: 0 carbamide peroxide [Debrox] 6.5 % Drops 5 drp otic (ear) BID RF: 0 docusate sodium 100 mg Capsule 100 mg PO BID RF: 0 Santyl 250 unit/gram Ointment Topical DIRECTED RF: 0 magnesium oxide 400 mg Capsule 400 mg PO BID RF: 0 Medical Decision Making Patient presenting because of fever, diarrhea, decreased urine output. She has no complaints herself. She has quadriplegic from a fall in 2018. She has a suprapubic catheter in place. This will need to be changed before obtaining urine sample. Establish IV and start fluids. Laboratory studies and chest x-ray ordered. Stool to be sent for C. difficile. Suprapubic catheter changed by me without any issues. Small amount of dark urine full of sediment obtained. Fluids continued. Laboratory studies significant for white count of 14.8. Hemoglobin little low at 11.1. Platelets normal. No lymphopenia. Potassium normal but magnesium quite low and 2 g ordered replaced. Kidney function off with creatinine up to 1.31. Lactic acid 2. Chest x-ray with suggestion of interstitial infiltrates bilaterally. C. difficile negative. Urine output is increasing with fluids. Because of the infiltrates, fever and diarrhea will make patient P URI. However urine appears dirty so will presume this is more likely UTI with dehydration and MOLLY. Ceftriaxone ordered. COVID screening labs added on. CT of the chest abdomen pelvis ordered. Case discussed with hospitalist for admission. She will go to negative pressure. 01:15 - D-dimer is elevated. Procalcitonin normal. Ferritin and C-reactive protein a little out. CT chest does show interstitial infiltrative process consistent with inflammatory/infectious process although possible cardiogenic as well. CT abdomen pelvis shows evidence of diffuse enterocolitis throughout. No obstruction. No acute inflammatory process. Findings discussed with Dr. Steve. Will continue work-up for PUI in place and negative pressure but will also treat for UTI and dehydration. Currently no respiratory issues and normal room air oxygenation status. HPI General Mode of arrival: EMS. Date/Time Provider Initiated Documentation: 12/21/19 22:26. Limitations to Documentation: altered mental status. Information obtained by: patient, EMS, RN notes reviewed and old records reviewed. HPI Narrative: Patient is sent in to ED tonight after being found febrile at home with decreased urine output. Patient herself has no complaints of and is not sure why she was sent here. She is a quadriplegic from a fall in 2018. She at this point is cared for at home by daughter and caretakers. Per daughter's report when she called in patient has been having diarrhea for couple of days. Today she seemed a little more confused than usual, spiked a fever tonight, has had decreased urine output and darkness. Patient states that she feels fine. She does not have sensation from upper chest down. She is quadriplegic with spastic arms. Related Data Home Medications Medication Instructions Recorded Confirmed Santyl TOPICAL DIRECTED 06/23/18 08/24/19 acetaminophen 1,000 mg PO TID 06/23/18 12/21/19 anastrozole 1 mg PO DAILY 06/23/18 12/21/19 aspirin 81 mg PO DAILY 06/23/18 12/21/19 atorvastatin 10 mg PO HS 06/23/18 12/21/19 baclofen 20 mg PO BID 06/23/18 12/21/19 carbamide peroxide [Debrox] 5 drp OTIC (EAR) BID 06/23/18 08/24/19 docusate sodium 100 mg PO BID 06/23/18 12/21/19 lidocaine [Lidoderm] 5 patch TRANSDERMAL DAILY 06/23/18 12/21/19 magnesium oxide 400 mg PO BID 06/23/18 12/21/19 melatonin 3 mg PO PRN PRN 06/23/18 12/21/19 metformin 500 mg PO BID 06/23/18 12/21/19 multivitamin 1 tab PO DAILY 06/23/18 12/21/19 sennosides [senna] 8.6 mg PO BID 06/23/18 12/21/19 Saccharomyces boulardii [Florastor] 250 mg PO BID #20 cap 06/16/19 08/24/19 calcium carbonate-vitamin D3 1 tab PO BID 06/16/19 12/21/19 [Calcium 500 With D] ferrous sulfate 324 mg PO DAILY 06/16/19 12/21/19 gabapentin 600 mg PO .QHS 06/16/19 12/21/19 gabapentin [Neurontin] 400 mg PO DAILY 06/16/19 12/21/19 levothyroxine 1 mcg PO DAILY 06/16/19 12/21/19 omeprazole 20 mg PO DAILY 06/16/19 12/21/19 polyethylene glycol 3350 [Miralax] 17 g PO .QHS 06/16/19 12/21/19 citric ym-[id number]-flr carb 30 ml IRRIGATION DAILY 12/21/19 12/21/19 [Renacidin] diclofenac sodium 2 g TOPICAL QID 12/21/19 12/21/19 Previous Rx's Medication Instructions Recorded Saccharomyces boulardii [Florastor] 250 mg PO BID #20 cap 06/16/19 Allergies Allergy/AdvReac Type Severity Reaction Status Date / Time No Known Allergies Allergy Unverified 12/21/19 23:06 General Stated Complaint: Fever BEVERLY: 2 Review of Systems Narrative: 05/30 Review of Systems completed and is negative except as stated above in HPI (Systems reviewed: Const, Eyes, ENT, Resp, CV, GI, , MSK, Skin, Neuro) [facility] Medical History (Updated 12/22/19 @ 01:21 by Angel Cabrales MD) AAA (abdominal aortic aneurysm) (Chronic) Diabetes mellitus (Chronic) History of breast cancer (Acute) Hyperlipemia (Chronic) Intracranial aneurysm (Chronic) Neurogenic bladder (Chronic) Paraplegia (Chronic) Suprapubic catheter (Chronic) Surgical History (Updated 12/22/19 @ 01:17 by Angel Cabrales MD) H/O breast surgery (Acute) H/O cervical spine surgery (Acute) S/P cholecystectomy (Acute) Social History Smoking/Tobacco Use Status: Former Tobacco Use Drug use: Never Do you feel safe in your relationship?: Yes Exam Narrative Exam Narrative: Vitals: Afebrile here. Hypotensive but normal heart rate. Normal room air saturation. Const: Obese female in NAD. HEENT: NC/AT. Normal facial exam. Eyes: Normal conjunctiva and sclera. Neck: Supple. Trachea midline. Lungs: Normal respiratory effort. Cor: Good radial pulses. Strong and regular. GI: Soft. NT/ND. No guarding or rebound. Neuro: A+O x 3 but mild confusion. Cranial nerves II - XII grossly intact. Quadriplegia with no sensation from mid chest down. Ext: No C/C/E. Skin: Warm and dry without rash. No open wounds or erythema. Course Vital Signs Vital signs: Vital Signs Temperature 99.9 F H 12/21/19 22:10 Pulse 83 12/21/19 22:10 Respiratory Rate 19 12/21/19 22:10 Blood Pressure 97/75 L 12/21/19 22:10 Pulse Oximetry 96 12/21/19 22:10 Temperature 99.9 F H 12/21/19 22:10 Temperature Source Oral 12/21/19 22:10 Pulse 83 12/21/19 22:10 Respiratory Rate 19 12/21/19 22:10 Respiratory Effort 12/21/19 22:17 Blood Pressure 97/75 L 12/21/19 22:10 Blood Pressure Position Supine 12/21/19 22:10 Pulse Oximetry 96 12/21/19 22:10 Oxygen Delivery Method Room Air 12/21/19 22:10 Oxygen Flow Rate 0 12/21/19 22:10 Pain Level 0 12/21/19 22:10
[2019-12-21 22:45] LABS: Abs Immature Grans 0.05 k/cumm (0.0-0.09); Absolute Basophil Count 0.01 k/cumm (0.0-0.2); Absolute Lymphocyte Count 2.15 k/cumm (1.2-3.4); Basophils % 0.1; Eosinophils % 0.5; HGB 11.1 g/dL (12.0-15.5); Immature Grans % 0.3 %; Lymphocytes % 14.5; Mean Corp. HGB Concentration 32.6 g/dL (32.0-36.0); Mean Platelet Volume 10.4 fL (8.0-11.0); Neutrophils % 81.6; Platelet Count 162 x1000/uL (130-400); RBC 3.47 m/cumm (4.00-5.20); RBC Distribution Width 13.5 % (11.7-14.6); White Blood Cell Count 14.81 k/cumm (4.4-10.8)
[2019-12-21 22:47] LABS: Absolute Eosinophil Count 0.07 k/cumm (0.0-0.7); Absolute Monocyte Count 0.44 k/cumm (0.11-0.7); Absolute Neutrophil Count 12.08 k/cumm (1.2-6.7)
--- NOTE | 2019-12-21 22:59 | DI.RAD_ITS ---
EXAM: XR PORTABLE CHEST AP INDICATION: fever; paraplegia. COMPARISON: CR XR CHEST 1V IN DI DEPT from 06/22/[address] CHEST/ABD/PEL WO from 12/22/2019 TECHNIQUE: 2D digital imaging was performed. FINDINGS: Heart size is within normal limits for projection. Leads overlie the chest. Hardware is noted in th e lower cervical spine. The lungs show increased interstitial markings likely reflecting fibrotic ch anges, not significantly different from previous examinations. No focal infiltrate or effusion is se en. IMPRESSION: Chronic fibrotic changes. No acute abnormality. DATA REPOSITORY: RADIATION DOSE DELIVERED:
[2019-12-21] MEDS: Lactated Ringers 1,000 ML 1000 ML IV (23:00)
[2019-12-21 23:02] LABS: ALT 33 U/L (14-59); AST 14 U/L (15-37); Albumin 2.7 g/dL (3.4-5.0); Alkaline Phosphatase 71 U/L (46-116); BUN 33 mg/dL (7-18); Bilirubin, Total 0.8 mg/dL (0.2-1.0); CREATININE 1.31 mg/dL (0.55-1.02); Calcium 8.4 mg/dL (8.5-10.1); Chloride 97 mmol/L (98-107); Estimated GFR 39.16 (mL/min/1.73m2); Glucose 143 mg/dL (74-106); Magnesium 1.1 mg/dL (1.8-2.4); Potassium 4.5 mmol/L (3.5-5.1); Sodium 129 mmol/L (136-145); Total Protein 6.5 g/dL (6.4-8.2); Troponin I < 0.05 ng/Ml (<0.06)
--- NOTE | 2019-12-21 23:13 | DI.VRAD_ITS ---
PROCEDURE INFORMATION: Exam: XR Chest, 1 View Exam date and time: 12/21/2019 11:01 PM Age: 79 years old Clinical indication: Fever TECHNIQUE: Imaging protocol: XR of the chest Views: 1 view. COMPARISON: CR XR CHEST 1V IN DI DEPT 06/22/2018 2:31 PM FINDINGS: Lungs: There are diffuse interstitial infiltrates present. This may represent cardiogenic versus noncardiogenic edema. An acute inflammatory process and/or infectious process/pneumonia are not excluded. Pleural space: There is no evidence of pneumothorax. There are no pleural effusions present. Heart/Mediastinum: There is moderate cardiomegaly. Bones/joints: Degenerative changes of the shoulder girdles, surgical changes seen at the cervical spine and degenerative changes of the thoracic spine present. The skeletal structures and soft tissues show no evidence of fracture or other acute processes. Soft tissues: Surgical changes left axillary region with left mastectomy consistent with prior surgical intervention. IMPRESSION: There are diffuse interstitial infiltrates present. This may represent cardiogenic versus noncardiogenic edema. An acute inflammatory process and/or infectious process/pneumonia are not excluded. Dictated and Authenticated by: Marcus Joy MD. Ordering:CECILIO Ortiz MD
[2019-12-21] MEDS: MAGNESIUM SULFATE 2 GM/50 ML BAG IVPB (23:17)
[2019-12-21 23:29] LABS: Bilirubin Small (Negative); Blood Large (Negative); Clarity Cloudy (Clear); Glucose Negative (Negative); Ketones Negative (Negative); Leukocyte Esterase Small (Negative); Nitrite Negative (Negative); Specific Gravity 1.015 (1.005-1.025); Urobilinogen 0.2 EU/dL (Up TO 0.2)
[2019-12-21 23:39] LABS: RBC >50 HPF (0-2); WBC >50 HPF (0-5)
[2019-12-21 23:40] LABS: Bacteria Many HPF (Negative); C & S Indicated? Yes; Casts Negative LPF (Negative); Crystals Moderate Amorphous HPF (Negative); Epithelial Cells Negative HPF (Negative); Mucus Negative (Negative); Other Cells Negative (Negative)
[2019-12-21 23:52] LABS: C-Reactive Protein 3.89 mg/dL (0.0-0.3); LDH 189 U/L (81-234)
[2019-12-22] VITALS (20 sets, daily range): BP systolic 86–146; BP diastolic 46–65; PULSE 78–94; RESP 18–24; TEMP 36.3–38.3; O2SAT 88–97
[2019-12-22] MEDS: Lactated Ringers 1,000 ML 125 ML IV ×2 (00:08→09:40)
--- NOTE | 2019-12-22 00:09 | HPE_ITS ---
Date of service: 12/22/19 Time of Service: 00:10 Assessment and Plan Assessment and plan (1) UTI (urinary tract infection): Status: Acute Assessment and plan: UTI. The diarrhea raises question of more specific GI pathology and CT pending; question of COVID raised due to CXR findings, though I think this is more baseline and UTI remains most likely diagnosis here. * UTI: empiric antibiotics (Rocephin) * COVID r/o * Hypomag: being replaced * Hyponatremia: saline and monitor * DM: will hold Metformin and follow on SS for now History of Present Illness History of Present Illness Chief Complaint: fever Narrative: 79 female with quadriplegia due to cervical spine injury 2018, cared for at home by daughter. here with one day of fever and non-specific constitutional symptoms, along with diarrhea. In ER findings of note for temp 37.7, BP 97/sys (at or near baseline), pyuria, white count 14 and CXR with bilateral interstitial pattern (similar to prior to my read). Mg 1.1 and sodium 129 also noted. Admitted for further evaluation. C diff negative. ER obtaining CT chest and abdomen at present. Review of Systems All systems reviewed & are unremarkable except as noted in HPI and below PFSH Medical History AAA (abdominal aortic aneurysm) (Chronic) Diabetes mellitus (Chronic) History of breast cancer (Acute) Hyperlipemia (Chronic) Intracranial aneurysm (Chronic) Neurogenic bladder (Chronic) Paraplegia (Chronic) Suprapubic catheter (Chronic) Surgical History H/O breast surgery (Acute) H/O cervical spine surgery (Acute) Social History Smoking/Tobacco Use Status: Former Tobacco Use Drug use: Never Do you feel safe in your relationship?: Yes Meds Home Medications and Allergies Home Medications Medication Instructions Recorded Confirmed Type Santyl TOPICAL DIRECTED 06/23/18 08/24/19 History acetaminophen 1,000 mg PO TID 06/23/18 12/21/19 History anastrozole 1 mg PO DAILY 06/23/18 12/21/19 History aspirin 81 mg PO DAILY 06/23/18 12/21/19 History atorvastatin 10 mg PO HS 06/23/18 12/21/19 History baclofen 20 mg PO BID 06/23/18 12/21/19 History carbamide peroxide [Debrox] 5 drp OTIC (EAR) BID 06/23/18 08/24/19 History docusate sodium 100 mg PO BID 06/23/18 12/21/19 History lidocaine [Lidoderm] 5 patch TRANSDERMAL DAILY 06/23/18 12/21/19 History magnesium oxide 400 mg PO BID 06/23/18 12/21/19 History melatonin 3 mg PO PRN PRN 06/23/18 12/21/19 History metformin 500 mg PO BID 06/23/18 12/21/19 History multivitamin 1 tab PO DAILY 06/23/18 12/21/19 History sennosides [senna] 8.6 mg PO BID 06/23/18 12/21/19 History Saccharomyces boulardii [Florastor] 250 mg PO BID #20 cap 06/16/19 08/24/19 Rx calcium carbonate-vitamin D3 1 tab PO BID 06/16/19 12/21/19 History [Calcium 500 With D] ferrous sulfate 324 mg PO DAILY 06/16/19 12/21/19 History gabapentin 600 mg PO .QHS 06/16/19 12/21/19 History gabapentin [Neurontin] 400 mg PO DAILY 06/16/19 12/21/19 History levothyroxine 1 mcg PO DAILY 06/16/19 12/21/19 History omeprazole 20 mg PO DAILY 06/16/19 12/21/19 History polyethylene glycol 3350 [Miralax] 17 g PO .QHS 06/16/19 12/21/19 History citric zc-ncxxlpklqjs-fbr carb 30 ml IRRIGATION DAILY 12/21/19 12/21/19 History [Renacidin] diclofenac sodium 2 g TOPICAL QID 12/21/19 12/21/19 History Allergies Allergy/AdvReac Type Severity Reaction Status Date / Time No Known Allergies Allergy Unverified 12/21/19 23:06 Exam Narrative Exam Narrative: 129/57, 91, 22, 37.7, 93% RA. HEENT atraumatic; neck non-tender; lungs clear; heart RRR w/o MRG; abdomen soft ; extremities 1+ pedal edema; neuro Ox3, quadriplegic, sensory level upper chest Results Labs Result diagrams: 12/21/19 22:28 12/21/19 22:28 Labs: Laboratory Results - last 24 hr 12/21/19 12/21/19 12/21/19 22:28 22:28 22:28 WBC 14.81 H RBC 3.47 L Hgb 11.1 L Hct 34.0 L MCV 98.0 H MCH 32.0 MCHC 32.6 RDW 13.5 Plt Count 162 MPV 10.4 Immature Gran % 0.3 Neutrophils % 81.6 Lymphocytes % 14.5 Monocytes % 3.0 Eosinophils % 0.5 Basophils % 0.1 Absolute Neutrophils 12.08 H Absolute Lymphocytes 2.15 Absolute Monocytes 0.44 Absolute Eosinophils 0.07 Absolute Basophils 0.01 Sodium 129 L Potassium 4.5 Chloride 97 L Carbon Dioxide 23.0 Anion Gap 9.0 BUN 33 H Creatinine 1.31 H Estimated GFR/1.73 m2 39.16 Glucose 143 H Lactate 2.0 H Calcium 8.4 L Magnesium 1.1 L Total Bilirubin 0.8 AST 14 L ALT 33 Alkaline Phosphatase 71 Lactate Dehydrogenase Troponin I < 0.05 C-Reactive Protein Total Protein 6.5 Albumin 2.7 L Urine Color Urine Clarity Urine pH Ur Specific [place] Urine Protein Urine Ketones Urine Blood Urine Nitrite Urine Bilirubin Urine Urobilinogen Ur Leukocyte Esterase Urine RBC Urine WBC Ur Epithelial Cells Urine Crystals Urine Bacteria Urine Casts Urine Mucus Urine Other Ur Culture Indicated? Urine Glucose 12/21/19 12/21/19 22:28 23:19 WBC RBC Hgb Hct MCV MCH MCHC RDW Plt Count MPV Immature Gran % Neutrophils % Lymphocytes % Monocytes % Eosinophils % Basophils % Absolute Neutrophils Absolute Lymphocytes Absolute Monocytes Absolute Eosinophils Absolute Basophils Sodium Potassium Chloride Carbon Dioxide Anion Gap BUN Creatinine Estimated GFR/1.73 m2 Glucose Lactate Calcium Magnesium Total Bilirubin AST ALT Alkaline Phosphatase Lactate Dehydrogenase 189 Troponin I C-Reactive Protein 3.89 H Total Protein Albumin Urine Color Yellow Urine Clarity Cloudy Urine pH 5.0 Ur Specific [place] 1.015 Urine Protein 100 H Urine Ketones Negative Urine Blood Large H Urine Nitrite Negative Urine Bilirubin Small H Urine Urobilinogen 0.2 Ur Leukocyte Esterase Small H Urine RBC >50 H Urine WBC >50 H Ur Epithelial Cells Negative Urine Crystals Moderate amorphous Urine Bacteria Many Urine Casts Negative Urine Mucus Negative Urine Other Negative Ur Culture Indicated? Yes Urine Glucose Negative Last Vital Signs Temp 37.7 C H 12/21/19 22:10 Pulse 87 12/22/19 00:00 Resp 22 12/22/19 00:01 BP 129/57 L 12/22/19 00:00 Pulse Ox 93 L 12/22/19 00:01 COVID-19 Screening Traveled to [place] from one of the affected countries or regions?: NO Recent travel in the [facility] within the last 14 days?: No Recent out of the country travel within the last 14 days?: No Exposure or possible exposure to illness during travel?: No Had IN PERSON contact w/suspected or confirmed C-19 person: No Have you had the following symptoms in the past few days?: No Symptoms noted since travel?: Fever
[2019-12-22 00:16] LABS: Procalcitonin 0.2 ng/mL
[2019-12-22 00:20] LABS: D-Dimer 6748 ng/mlFEU (<500)
[2019-12-22 00:21] LABS: Ferritin 322 ng/mL (8-252)
--- NOTE | 2019-12-22 00:53 | DI.VRAD_ITS ---
PROCEDURE INFORMATION: Exam: CT Chest Without Contrast Exam date and time: 12/21/2019 11:25 PM Age: 79 years old Clinical indication: Fever; Other: Diarrhea, ileana, b infiltrates; Prior surgery; Surgery date: 6+ months TECHNIQUE: Imaging protocol: Computed tomography of the chest without contrast. Radiation optimization: All CT scans at this facility use at least one of these dose optimization techniques: automated exposure control; mA and/or kV adjustment per patient size (includes targeted exams where dose is matched to clinical indication); or iterative reconstruction. COMPARISON: CT PELVIC WO 06/16/2019 6:43 PM FINDINGS: Lungs: Atelectatic changes and scarring seen at the left greater than right lung.There are diffuse interstitial infiltrates present. This may represent cardiogenic versus noncardiogenic edema. An acute inflammatory process and/or infectious process/pneumonia are not excluded. There is heterogeneous attenuation of the pulmonary parenchyma, consistent with air trapping from underlying small airways disease. Pleural space: There is no evidence of pneumothorax. There are no pleural effusions present. Heart: There is moderate atherosclerotic calcification of the coronary arteries. There is calcification of the cardiac aortic valve annulus. Aorta: Unremarkable. No aortic aneurysm. Lymph nodes: Unremarkable. No enlarged lymph nodes. Bones/joints: The thoracic spine demonstrates moderate degenerative changes at multiple levels. The skeletal structures and soft tissues show no evidence of fracture or other acute processes. Soft tissues: The soft tissues of the extrathoracic region are unremarkable. Other findings: Motion artifact does moderately limit the sensitivity of this examination. Please see CT of the abdomen and pelvis. IMPRESSION: 1. Atelectatic changes and scarring seen at the left greater than right lung.There are diffuse interstitial infiltrates present. This may represent cardiogenic versus noncardiogenic edema. An acute inflammatory process and/or infectious process/pneumonia are not excluded. 2. There is heterogeneous attenuation of the pulmonary parenchyma, consistent with air trapping from underlying small airways disease. PROCEDURE INFORMATION: Exam: CT Abdomen And Pelvis Without Contrast Exam date and time: 12/21/2019 11:25 PM Age: 79 years old Clinical indication: Fever; Other: Diarrhea, ileana, b infiltrates; Prior surgery; Surgery date: 6+ months TECHNIQUE: Imaging protocol: Computed tomography of the abdomen and pelvis without contrast. Radiation optimization: All CT scans at this facility use at least one of these dose optimization techniques: automated exposure control; mA and/or kV adjustment per patient size (includes targeted exams where dose is matched to clinical indication); or iterative reconstruction. COMPARISON: CT P[facility]IC WO 06/16/2019 6:43 PM FINDINGS: Lungs: Please see CT of the chest and lungs. Liver: There is a diffuse decrease in hepatic parenchymal density, consistent with moderate fatty infiltration. Gallbladder and bile ducts: There has been a cholecystectomy. Pancreas: The pancreas is normal. Spleen: The spleen is normal. Adrenals: The adrenal glands are normal. Kidneys and ureters: The kidneys are normal. Stomach and bowel: There are diffuse fluid filled loops of small bowel and colon with scattered air fluid levels. The bowel loops are mildly distended. No associated bowel wall thickening or inflammatory changes. No evidence of obstruction. Findings most consistent with diffuse enterocolitis. There is mild to moderate increased colonic fecal content. The colon is nondilated. These findings suggest a mild to moderate degree of constipation. Clinical correlation recommended. Appendix: There is no evidence of appendicitis. Intraperitoneal space: There is no free intraperitoneal air. There is no evidence of free intraperitoneal or pelvic fluid. Vasculature: The aorta demonstrates moderate atherosclerotic calcification. There is mild aneurysmal dilatation of the infrarenal abdominal aorta measuring 3.4 cm. No evidence of leakage or rupture. Lymph nodes: There is no evidence of lymphadenopathy. Bladder: The bladder is decompressed by a suprapubic Dodson catheter but is otherwise normal. There is a small amount of urinary bladder intraluminal air consistent with instrumentation. Reproductive: The uterus is normal. Bones/joints: Moderate to severe degenerative changes of the lumbosacral spine. The thoracolumbar spine demonstrates moderate degenerative changes at multiple levels.The extra-abdominal soft tissues are normal. Soft tissues: Unremarkable. IMPRESSION: There are diffuse fluid filled loops of small bowel and colon with scattered air fluid levels. The bowel loops are mildly distended. No associated bowel wall thickening or inflammatory changes. No evidence of obstruction. Findings most consistent with diffuse enterocolitis. Dictated and Authenticated by: Marcus Joy MD. Ordering:CECILIO Ortiz MD
[2019-12-22] MEDS: cefTRIAXone 1,000 MG in Normal Saline 50 ML 100 MG IVPB (01:19)
[2019-12-22] MEDS: Enoxaparin 40 MG/0.4 ML SYR SC (02:54)
[2019-12-22] MEDS: Levothyroxine 125 MCG TAB PO (05:52)
[2019-12-22 07:09] LABS: Platelet Count 151 x1000/uL (130-400)
[2019-12-22 07:16] LABS: Anion Gap 9.2 mmol/L (3-11); CO2 24.8 mmol/L (21.0-32.0); Chloride 98 mmol/L (98-107); Magnesium 1.7 mg/dL (1.8-2.4); Potassium 4.4 mmol/L (3.5-5.1); Sodium 132 mmol/L (136-145)
--- NOTE | 2019-12-22 08:54 | INITIAL_ITS ---
- If Service Date Differs Date of service: 12/22/19 Time of Service: 08:55 Care Management Initial Assess REASON FOR HOSPITALIZATION:: UTI, dehydration, MOLLY (acute kidney injury), and infiltrate of lung present on imaging of chest. PAST MEDICAL HISTORY/PAST SURGICAL HISTORY:: Medical History: AAA (abdominal aortic aneurysm), Diabetes mellitus, History of breast cancer, Hyperlipemia, Intracranial aneurysm, Neurogenic bladder, Paraplegia, and Suprapubic catheter. Surgical History: H/O breast surgery and H/O cervical spine surgery. PREVIOUS FUNCTIONAL STATUS/SOCIAL/FAMILY SUPPORTS:: Gerardo is a 79 year old woman who lives in [place] with her . Together, they have six children, all of whom live nearby and are supportive of Gerardo. 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 Her children and her provide most of her care at home. CURRENT FUNCTIONAL STATUS:: CM is unable to meet with Gerardo today, as she is a covid rule-out. CM will continue to follow. ADVANCE DIRECTIVES:: None on file at [facility]. Has patient been provided with information about the portal?: No Did the patient sign up for the portal?: No CODE STATUS:: Full Code INSURANCE COVERAGE / FINANCIAL ISSUES:: Medicare CURRENT HOME/COMMUNITY SERVICES/EQUIPMENT:: Gerardo has a hospital bed, wheelchair, ramps, and shower chair at home. Her and her children provide most of her care and she has Home Health nursing services. PRIMARY CARE PHYSICIAN:: ATIYA Elias ([facility]) POTENTIAL DISCHARGE NEEDS:: Follow-up appointment with PCP. PATIENT/FAMILY EDUCATION NEEDS:: Review discharge instructions re medications and acitivity levels, including Ask Me Three and self-management. ANTICIPATED BARRIERS TO DISCHARGE:: None identified at this time. TRANSPORTATION:: Via ambulance, coordinated by CM. PLAN:: Gerardo will be discharged home with a resumption of Home Health nursing when medically cleared by provider. Gerardo will be transported home by ambulance coordinated by CM when ready. CM will continue to support patient and discharge planning needs.
[2019-12-22] MEDS: Gabapentin 400 MG CAP PO (09:31)
[2019-12-22] MEDS: Magnesium Oxide 400 MG TAB PO ×2 (09:31→19:58)
[2019-12-22] MEDS: Acetaminophen 500 MG TAB 1000 MG PO ×3 (09:32→19:57)
[2019-12-22] MEDS: Ferrous Sulfate 325 MG TAB PO (09:33)
[2019-12-22] MEDS: Omeprazole 20 MG CAPCR PO (09:33)
[2019-12-22] MEDS: Baclofen 10 MG TAB 20 MG PO ×2 (09:33→19:58)
[2019-12-22] MEDS: Diclofenac 1% Gel 100 GM TUBE TP ×3 (09:34→20:00)
[2019-12-22] MEDS: Aspirin E.C. 81 MG TABEC PO (09:34)
[2019-12-22] MEDS: Insulin Aspart 300 UNITS/3 ML PEN SC ×3 (09:35→17:11)
[2019-12-22] MEDS: Lidocaine 5% Patch 5 PATCH TD (09:36)
--- NOTE | 2019-12-22 12:21 | PHACLINREV_ITS ---
Pharmacy Admission Review - Admission Clinical Review (Last Reviewed 12/22/19 @ 00:16 by Anirudh Steve MD) Acute UTI (Acute) Acute dehydration (Acute) MOLLY (acute kidney injury) (Acute) Infiltrate of lung present on imaging of chest (Acute) UTI (urinary tract infection) (Acute) No Known Allergies Allergy (Unverified 12/21/19 23:06) Height 5 ft 1 in Weight 81.6 kg UTI, Weak/fever - Comments Comments/Follow Ups: Follow Micro, fever - Renal Dosing Renal Dosing: BUN 33 mg/dL (7-18) H 12/21/19 22:28 Creatinine 1.31 mg/dL (0.55-1.02) H 12/21/19 22:28 Medications needing adjustments: Reviewed (CCl~26ml/min) - Anticoagulation Anticoagulation: Hgb 11.1 g/dL (12.0-15.5) L 12/21/19 22:28 Hct 34.0 % (36.0-46.0) L 12/21/19 22:28 Plt Count 151 x1000/uL (130-400) 12/22/19 06:45 Creatinine 1.31 mg/dL (0.55-1.02) H 12/21/19 22:28 DVT Prohphylaxis: Intervened Medications: Enoxaparin (Adjusted from 40mg daily to 30mg daily for CrCl<30ml/min) Therapeutic Anticoagulation: N/A - Opiate Usage Evaluate Pain Scale/Pains Meds: N/A - Relevant Labs Sodium 132 mmol/L (136-145) L 12/22/19 06:45 Potassium 4.4 mmol/L (3.5-5.1) 12/22/19 06:45 Chloride 98 mmol/L (98-107) 12/22/19 06:45 Magnesium 1.7 mg/dL (1.8-2.4) L 12/22/19 06:45 C-Reactive Protein 3.89 mg/dL (0.0-0.3) H 12/21/19 22:28 Electrolytes, C-Reactive P, ESR: Reviewed (Mag replaced IV and orally) - DM Control DM Control: Glucose 143 mg/dL (74-106) H 12/21/19 22:28 Finger Stick Blood Glucose 182 Finger Stick Blood Glucose 216 Finger Stick Blood Glucose 216 Insulin Dosing: Reviewed (Novolog scale) - Heart Failure/TN Heart Failure/TN: Troponin I < 0.05 ng/Ml (<0.06) 12/21/19 22:28 EF%, YONATAN's, B-Blockers, Diuretics: N/A - BP Control BP Control: Blood Pressure 129/62 Blood Pressure 131/65 Blood Pressure 146/65 Blood Pressure 113/63 Blood Pressure 98/56 Blood Pressure 113/47 Blood Pressure 100/51 Blood Pressure 86/46 Blood Pressure 105/50 If elevated: N/A - Qtc Review If Elevated: Reviewed (from 2018 (QTC 411)...no recent EKG) - Home Meds Relevent Home Meds Not ordered & why?: Metformin, MVI, Senna, Bladder irrigation called Renacidin-non pharmacy item - Current meds Current Medication Order Review: Intervened (Lidocaine patches ordered as Apply #5 patches daily....called PCP in [place] (Jessica Ramos), nurse stated they don't have this on the patient's home med list, but [facility] 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
[2019-12-22] MEDS: Anastrozole 1 MG TAB PO (12:29)
[2019-12-22] MEDS: MEROPENEM 1 GM in Normal Saline 100 ML IVPB (17:08)
[2019-12-22 17:09] LABS: Abs Immature Grans 0.06 k/cumm (0.0-0.09); Absolute Basophil Count 0.01 k/cumm (0.0-0.2); Absolute Lymphocyte Count 1.34 k/cumm (1.2-3.4); Basophils % 0.1; Eosinophils % 0.9; HCT 33.7 % (36.0-46.0); Immature Grans % 0.5 %; Lymphocytes % 10.6; Mean Corp. HGB Concentration 32.6 g/dL (32.0-36.0); Mean Corpuscular Hemoglobin 31.8 pg (27.0-33.0); Mean Corpuscular Volume 97.4 fL (80-95); Mean Platelet Volume 10.3 fL (8.0-11.0); Neutrophils % 83.9; Platelet Count 150 x1000/uL (130-400); RBC 3.46 m/cumm (4.00-5.20); RBC Distribution Width 13.5 % (11.7-14.6); White Blood Cell Count 12.65 k/cumm (4.4-10.8)
--- NOTE | 2019-12-22 17:15 | DI.RAD_ITS ---
EXAM: XR PORTABLE CHEST AP CLINICAL HISTORY: hypoxemia, rales TECHNIQUE: 2D digital imaging was performed. COMPARISON: CR XR CHEST 2V PA LATERAL from 05/03/2018 CR XR CHEST 1V IN DI DEPT from 06/22/2018 CR,XR XR PORTABLE CHEST AP from 12/21/[address] CHEST/ABD/PEL WO from 12/22/[address] CHEST/ABD/PEL WO from 12/22/2019 FINDINGS: The exam is limited by suboptimal pulmonary inflation. The heart size is within normal limits for pr ojection. Underlying chronic interstitial changes are again noted. No superimposed infiltrate, effu kailyn or overt pulmonary edema is seen. IMPRESSION: No acute abnormality.
[2019-12-22 17:18] LABS: Anion Gap 7.7 mmol/L (3-11); BUN 26 mg/dL (7-18); CO2 25.3 mmol/L (21.0-32.0); CREATININE 1.06 mg/dL (0.55-1.02); Calcium 8.4 mg/dL (8.5-10.1); Chloride 100 mmol/L (98-107); Estimated GFR 50.01 (mL/min/1.73m2); Glucose 151 mg/dL (74-106); Potassium 4.2 mmol/L (3.5-5.1); Sodium 133 mmol/L (136-145)
[2019-12-22 17:29] LABS: Lactate 1.5 mmol/L (0.6-1.4)
[2019-12-22 17:57] LABS: Absolute Eosinophil Count 0.11 k/cumm (0.0-0.7); Absolute Monocyte Count 0.51 k/cumm (0.11-0.7); Absolute Neutrophil Count 10.61 k/cumm (1.2-6.7)
--- NOTE | 2019-12-22 17:57 | DI.VRAD_ITS ---
PROCEDURE INFORMATION: Exam: XR Chest, 1 View Exam date and time: 12/22/2019 17:41 Age: 79 years old Clinical indication: Other: Hypoxemia, rales TECHNIQUE: Imaging protocol: XR of the chest Views: 1 view. COMPARISON: CR XR PORTABLE CHEST AP 12/21/2019 22:55 FINDINGS: Lungs: Hazy mild perihilar and left peripheral predominant interstitial opacities appears slightly improved. Pleural space: No large effusions. Click no pneumo left axillary surgical clips. Heart/Mediastinum: No cardiomegaly. Bones/joints: Cervical fixation hardware partially seen similar to prior. No displaced fracture. IMPRESSION: Hazy mild interstitial prominence improved compared to prior. Consider interstitial edema, infectious and inflammatory causes. Dictated and Authenticated by: Brianne Muir MD. Ordering:[facility] Maida Mccann MD
[2019-12-22 18:26] LABS: Diff Comment Diff Reviewed; Macrocytosis 1+
[2019-12-22] MEDS: Lactated Ringers 1,000 ML 85 ML IV (18:51)
[2019-12-22 19:54] LABS: NT-proBNP 633 pg/mL (<300)
[2019-12-22] MEDS: Patch Removal 4 EACH TP (19:59)
[2019-12-22] MEDS: Atorvastatin 10 MG TAB PO (21:50)
[2019-12-22] MEDS: Melatonin 3 MG TAB PO (21:50)
[2019-12-22] MEDS: Gabapentin 600 MG TAB PO (21:50)
[2019-12-22 23:07] LABS: COVID-19 RT-PCR UVMMC Result Negative (Negative)
[2019-12-23 00:25] VITALS: TEMP 37.3
[2019-12-23] MEDS: cefTRIAXone 1 GM/50 ML BAG IVPB (02:19)
[2019-12-23] MEDS: Normal Saline Flush 10 ML SYR IVP (02:20)
[2019-12-23] MEDS: MEROPENEM 1 GM in Normal Saline 100 ML IVPB ×2 (03:39→16:58)
[2019-12-23 04:22] VITALS: BP 95/58; PULSE 74; RESP 18; TEMP 36.7; O2SAT 97
[2019-12-23] MEDS: Levothyroxine 125 MCG TAB PO (06:01)
[2019-12-23] MEDS: Lactated Ringers 1,000 ML 85 ML IV (06:57)
[2019-12-23 07:20] VITALS: BP 134/77; PULSE 92; RESP 19; TEMP 37.2; O2SAT 97
[2019-12-23] MEDS: Ferrous Sulfate 325 MG TAB PO (08:39)
[2019-12-23] MEDS: Baclofen 10 MG TAB 20 MG PO ×2 (08:39→20:46)
[2019-12-23] MEDS: Omeprazole 20 MG CAPCR PO (08:39)
[2019-12-23] MEDS: Magnesium Oxide 400 MG TAB PO ×2 (08:39→20:45)
[2019-12-23] MEDS: Gabapentin 400 MG CAP PO (08:39)
[2019-12-23] MEDS: Acetaminophen 500 MG TAB 1000 MG PO ×3 (08:39→20:45)
[2019-12-23] MEDS: Anastrozole 1 MG TAB PO (08:39)
[2019-12-23] MEDS: Aspirin E.C. 81 MG TABEC PO (08:40)
[2019-12-23] MEDS: Enoxaparin 30 MG/0.3 ML SYR SC (08:40)
[2019-12-23] MEDS: Lidocaine 5% Patch 4 PATCH TD (08:41)
[2019-12-23] MEDS: Insulin Aspart 300 UNITS/3 ML PEN SC ×2 (08:41→12:12)
[2019-12-23] MEDS: Diclofenac 1% Gel 100 GM TUBE TP ×3 (08:42→20:44)
[2019-12-23 09:46] LABS: Lactate 1.5 mmol/L (0.6-1.4)
[2019-12-23 09:54] LABS: Abs Immature Grans 0.11 k/cumm (0.0-0.09); Absolute Basophil Count 0.01 k/cumm (0.0-0.2); Absolute Eosinophil Count 0.43 k/cumm (0.0-0.7); Absolute Lymphocyte Count 0.93 k/cumm (1.2-3.4); Absolute Monocyte Count 0.48 k/cumm (0.11-0.7); Absolute Neutrophil Count 8.27 k/cumm (1.2-6.7); Basophils % 0.1; Eosinophils % 4.2; HCT 31.6 % (36.0-46.0); HGB 10.1 g/dL (12.0-15.5); Immature Grans % 1.1 %; Lymphocytes % 9.1; Mean Corpuscular Hemoglobin 31.7 pg (27.0-33.0); Mean Corpuscular Volume 99.1 fL (80-95); Mean Platelet Volume 10.8 fL (8.0-11.0); Monocytes % 4.7; Neutrophils % 80.8; Platelet Count 106 x1000/uL (130-400); RBC 3.19 m/cumm (4.00-5.20); RBC Distribution Width 13.5 % (11.7-14.6); White Blood Cell Count 10.23 k/cumm (4.4-10.8)
[2019-12-23 09:57] LABS: Anion Gap 7.8 mmol/L (3-11); BUN 21 mg/dL (7-18); CO2 25.2 mmol/L (21.0-32.0); CREATININE 0.97 mg/dL (0.55-1.02); Calcium 8.2 mg/dL (8.5-10.1); Chloride 103 mmol/L (98-107); Glucose 214 mg/dL (74-106); Potassium 4.3 mmol/L (3.5-5.1); Sodium 136 mmol/L (136-145)
--- NOTE | 2019-12-23 10:43 | W.UROLOGYCON ---
Date of service: 12/23/19 Time of Service: 10:44 Assessment and Plan Assessment and plan (1) Suprapubic catheter: Status: Chronic Assessment and plan: Once discharged, the catheter changes can be managed by home health once again. History of Present Illness History of Present Illness Chief Complaint: Neurogenic bladder Narrative: This is a 79-year-old woman who has a history of a neurogenic bladder. She is currently maintained with an indwelling suprapubic tube. Home health providers usually change the tube for her. She was admitted to the hospital with a urinary tract infection. I have been asked to change her suprapubic tube during this admission. [facility] Medical History (Updated 12/22/19 @ 01:21 by Angel Cabrales MD) AAA (abdominal aortic aneurysm) (Chronic) Diabetes mellitus (Chronic) History of breast cancer (Acute) Hyperlipemia (Chronic) Intracranial aneurysm (Chronic) Neurogenic bladder (Chronic) Paraplegia (Chronic) Suprapubic catheter (Chronic) Surgical History (Updated 12/22/19 @ 01:17 by Angel Cabrales MD) H/O breast surgery (Acute) H/O cervical spine surgery (Acute) S/P cholecystectomy (Acute) Social History Smoking/Tobacco Use Status: Former Tobacco Use Drug use: Never Do you feel safe in your relationship?: Yes Exam Narrative Exam Narrative: She is pleasant older woman in no current distress. She is cooperative. She is seen while she is lying in her hospital bed Her vital signs are documented elsewhere She is awake and alert Results Last Vital Signs Temp 37.2 C 12/23/19 07:20 Pulse 92 H 12/23/19 07:20 Resp 19 12/23/19 07:20 BP 134/77 12/23/19 07:20 Pulse Ox 97 12/23/19 07:20 Labs Result diagrams: 12/23/19 09:37 12/23/19 09:37 Labs: Laboratory Results - last 24 hr 12/22/19 12/22/19 12/22/19 00:05 16:47 16:47 WBC 12.65 H RBC 3.46 L Hgb 11.0 L Hct 33.7 L MCV 97.4 H MCH 31.8 MCHC 32.6 RDW 13.5 Plt Count 150 MPV 10.3 Immature Gran % 0.5 Neutrophils % 83.9 Lymphocytes % 10.6 Monocytes % 4.0 Eosinophils % 0.9 Basophils % 0.1 Absolute Neutrophils 10.61 H Absolute Lymphocytes 1.34 Absolute Monocytes 0.51 Absolute Eosinophils 0.11 Absolute Basophils 0.01 Differential Comment Diff reviewed RBC Morphology See below Macrocytosis 1+ Sodium 133 L Potassium 4.2 Chloride 100 Carbon Dioxide 25.3 Anion Gap 7.7 BUN 26 H Creatinine 1.06 H Estimated GFR/1.73 m2 50.01 Glucose 151 H Lactate Calcium 8.4 L NT-Pro-B Natriuret Pep COVID-19 PCR Negative Nasopharyn COVID-19 PCR Not Applicable Ref Test Perform Site [facility] hospital lab 12/22/19 12/22/19 12/23/19 16:47 16:47 09:37 WBC RBC Hgb Hct MCV MCH MCHC RDW Plt Count MPV Immature Gran % Neutrophils % Lymphocytes % Monocytes % Eosinophils % Basophils % Absolute Neutrophils Absolute Lymphocytes Absolute Monocytes Absolute Eosinophils Absolute Basophils Differential Comment RBC Morphology Macrocytosis Sodium 136 Potassium 4.3 Chloride 103 Carbon Dioxide 25.2 Anion Gap 7.8 BUN 21 H Creatinine 0.97 Estimated GFR/1.73 m2 55.40 Glucose 214 H Lactate 1.5 H Calcium 8.2 L NT-Pro-B Natriuret Pep 633 H COVID-19 PCR Nasopharyn COVID-19 PCR Ref Test Perform Site 12/23/19 12/23/19 09:37 09:37 WBC 10.23 RBC 3.19 L Hgb 10.1 L Hct 31.6 L MCV 99.1 H MCH 31.7 MCHC 32.0 RDW 13.5 Plt Count 106 L MPV 10.8 Immature Gran % 1.1 Neutrophils % 80.8 Lymphocytes % 9.1 Monocytes % 4.7 Eosinophils % 4.2 Basophils % 0.1 Absolute Neutrophils 8.27 H Absolute Lymphocytes 0.93 L Absolute Monocytes 0.48 Absolute Eosinophils 0.43 Absolute Basophils 0.01 Differential Comment RBC Morphology Macrocytosis Sodium Potassium Chloride Carbon Dioxide Anion Gap BUN Creatinine Estimated GFR/1.73 m2 Glucose Lactate 1.5 H Calcium NT-Pro-B Natriuret Pep COVID-19 PCR Nasopharyn COVID-19 PCR Ref Test Perform Site Insert Bladder Catheter Text: Her indwelling suprapubic tube catheter balloon was deflated and the catheter was removed The suprapubic site was then prepped with Betadine. A 16 Greek catheter was passed through the suprapubic site into the bladder. The catheter balloon was inflated with 10 cc of sterile water and the catheter was hooked to gravity drainage. The patient tolerated the procedure well
--- NOTE | 2019-12-23 12:52 | W.PM.PROGNOT ---
Date of Service Date of service: 12/23/19 Time of Service: 12:52 Assessment and Plan Assessment and plan (1) Acute UTI: Status: Acute Assessment and plan: Continue current treatment with meropenem. De-escalate antibiotics once we have an identification sensitivity. Hopefully will be able to switch her to an oral antibiotic and discharge her home in the next 24 to 48 hours. I will check a renal ultrasound to be sure there is no evidence for pyelonephritis. Dr. Briggs's assistance is greatly appreciated and changing her suprapubic catheter. Ordinarily she gets her catheter is changed monthly by visiting nurse. (2) Acute dehydration: Status: Acute Assessment and plan: Her acute dehydration appears to be resolving and her acute kidney injury has improved. Once were ensure that she is taking adequate oral intake I will discontinue her IV fluids. In the meantime I decreased the rate of her LR to 50 mL's per hour. (3) MOLLY (acute kidney injury): Status: Acute Assessment and plan: Resolving. Check renal ultrasound to rule out obstructive process as well as rule out pyelonephritis. (4) Diabetes mellitus: Status: Chronic Assessment and plan: Blood sugars although not ideal they are improving. Glucose running between 150 and 190. They were over 200 on admission. Continue NovoLog sliding scale per insulin sensitive scale. Qualifiers: Diabetes mellitus type: type 2 Diabetes mellitus correction insulin use: without ad terminal makeup operator use Diabetes mellitus complication status: without complication Qualified Code(s): E11.9 - Type 2 diabetes mellitus without complications (5) Neurogenic bladder: Status: Chronic Assessment and plan: Suprapubic catheter changed today by Dr. Briggs. Case was discussed with him. Subjective Subjective Interval history since last seen: Patient has no acute complaints. She has no nausea or vomiting no abdominal pain. I asked her if she feels any shortness of breath says may be a little but she shows no outward signs of dyspnea. She has no significant physical activity as she is quadriplegic from her old C-spine injury. Dr. Briggs saw the patient today and changed her suprapubic catheter. Her urine culture is growing greater than 100,000 colonies of gram-positive suzie mixed in 50-100,000 colonies of gram-negative rods. Most certainly she could have colonization from a chronic indwelling suprapubic catheter she was symptomatic at that time including a leukocytosis of 14,800 which has since normalized to 10,000. She had an elevated C-reactive protein at 3.8 and a procalcitonin level of 0.2. Furthermore she had a fever up to 38.1 which has since defervesced. Overall she feels better and her appetite is coming back. I reduced her IV rate of lactated Ringer's down to 50 mL's per hour. I think if she continues to eat and drink well we can discontinue IV fluids. Her blood lactate is now down to 1.5 and her BUN and creatinine are normalizing at 21 and 0.97. Thus her acute kidney injury is resolving. I think once we have an identification sensitivity back on her urine culture we can switch her to oral antibiotics and discharge her back to her family Exam Narrative Exam Narrative: Elderly female sitting up in a semi-gaines position watching TV. She is alert and oriented person place time circumstance. Lungs reveal fine bibasilar rales no rhonchi or wheezing. Heart is regular rate and rhythm with a soft systolic murmur grade 2/6 along the aortic outflow. Abdomen soft and nontender. Normal active bowel sounds. Objective Objective Clinical Data: Abnormal lab results 12/22/19 12/22/19 12/22/19 Range/Units 16:47 16:47 16:47 WBC 12.65 H (4.4-10.8) k/cumm RBC 3.46 L (4.00-5.20) m/cumm Hgb 11.0 L (12.0-15.5) g/dL Hct 33.7 L (36.0-46.0) % MCV 97.4 H (80-95) fL Plt Count (130-400) x1000/uL Absolute Neutrophils 10.61 H (1.2-6.7) k/cumm Absolute Lymphocytes (1.2-3.4) k/cumm Sodium 133 L (136-145) mmol/L BUN 26 H (7-18) mg/dL Creatinine 1.06 H (0.55-1.02) mg/dL Glucose 151 H (74-106) mg/dL Lactate 1.5 H (0.6-1.4) mmol/L Calcium 8.4 L (8.5-10.1) mg/dL NT-Pro-B Natriuret Pep (<300) pg/mL 12/22/19 12/23/19 12/23/19 Range/Units 16:47 09:37 09:37 WBC (4.4-10.8) k/cumm RBC 3.19 L (4.00-5.20) m/cumm Hgb 10.1 L (12.0-15.5) g/dL Hct 31.6 L (36.0-46.0) % MCV 99.1 H (80-95) fL Plt Count 106 L (130-400) x1000/uL Absolute Neutrophils 8.27 H (1.2-6.7) k/cumm Absolute Lymphocytes 0.93 L (1.2-3.4) k/cumm Sodium (136-145) mmol/L BUN 21 H (7-18) mg/dL Creatinine (0.55-1.02) mg/dL Glucose 214 H (74-106) mg/dL Lactate (0.6-1.4) mmol/L Calcium 8.2 L (8.5-10.1) mg/dL NT-Pro-B Natriuret Pep 633 H (<300) pg/mL 12/23/19 Range/Units 09:37 WBC (4.4-10.8) k/cumm RBC (4.00-5.20) m/cumm Hgb (12.0-15.5) g/dL Hct (36.0-46.0) % MCV (80-95) fL Plt Count (130-400) x1000/uL Absolute Neutrophils (1.2-6.7) k/cumm Absolute Lymphocytes (1.2-3.4) k/cumm Sodium (136-145) mmol/L BUN (7-18) mg/dL Creatinine (0.55-1.02) mg/dL Glucose (74-106) mg/dL Lactate 1.5 H (0.6-1.4) mmol/L Calcium (8.5-10.1) mg/dL NT-Pro-B Natriuret Pep (<300) pg/mL Vital Signs Temperature 37.2 C 12/23/19 07:20 Temperature Source Tympanic 12/23/19 07:20 Pulse 92 H 12/23/19 07:20 Pulse Rhythm Regular 12/23/19 09:00 Pulse 79 12/22/19 01:10 Respiratory Rate 19 12/23/19 07:20 Respiratory Effort Non-Labored 12/23/19 09:00 Respiratory Depth Normal 12/23/19 09:00 Respiratory Pattern Normal 12/23/19 09:00 Blood Pressure 134/77 12/23/19 07:20 Blood Pressure Mean 64 12/22/19 01:18 Blood Pressure Position Supine 12/21/19 22:10 Pulse Oximetry 97 12/23/19 07:20 Oxygen Delivery Method Nasal Cannula 12/23/19 07:20 Oxygen Flow Rate 1 12/23/19 07:20 Pain Level 5 12/23/19 08:39 Comment 12/22/19 18:44 Intake & Output 12/22/19 12/23/19 12/23/19 23:59 11:59 23:59 Intake Total 1340 / 3440 1523.167 / 1643.167 120 / 1643.167 Output Total 600 / 1350 400 / 400 Balance 740 / 2090 1123.167 / 1243.167 120 / 1243.167 Intake: IV 1100 / 3200 1403.167 / 1403.167 Oral 240 / 240 120 / 240 120 / 240 Output: Urine 600 / 1350 400 / 400 Other: Urine Color Straw Pale Urine Appearance Sediment Clear Comment Suprapubic catheter. Stool Size Small Stool Characteristics Liquid Brown Voiding Methods Incontinent Laboratory Results WBC 10.23 k/cumm (4.4-10.8) 12/23/19 09:37 RBC 3.19 m/cumm (4.00-5.20) L 12/23/19 09:37 Hgb 10.1 g/dL (12.0-15.5) L 12/23/19 09:37 Hct 31.6 % (36.0-46.0) L 12/23/19 09:37 MCV 99.1 fL (80-95) H 12/23/19 09:37 MCH 31.7 pg (27.0-33.0) 12/23/19 09:37 MCHC 32.0 g/dL (32.0-36.0) 12/23/19 09:37 RDW 13.5 % (11.7-14.6) 12/23/19 09:37 Plt Count 106 x1000/uL (130-400) L 12/23/19 09:37 MPV 10.8 fL (8.0-11.0) 12/23/19 09:37 Immature Gran % 1.1 % 12/23/19 09:37 Neutrophils % 80.8 12/23/19 09:37 Lymphocytes % 9.1 12/23/19 09:37 Monocytes % 4.7 12/23/19 09:37 Eosinophils % 4.2 12/23/19 09:37 Basophils % 0.1 12/23/19 09:37 Absolute Neutrophils 8.27 k/cumm (1.2-6.7) H 12/23/19 09:37 Absolute Lymphocytes 0.93 k/cumm (1.2-3.4) L 12/23/19 09:37 Absolute Monocytes 0.48 k/cumm (0.11-0.7) 12/23/19 09:37 Absolute Eosinophils 0.43 k/cumm (0.0-0.7) 12/23/19 09:37 Absolute Basophils 0.01 k/cumm (0.0-0.2) 12/23/19 09:37 Differential Comment Diff reviewed 12/22/19 16:47 RBC Morphology See below 12/22/19 16:47 Macrocytosis 1+ 12/22/19 16:47 D-Dimer 6748 ng/mlFEU (<500) H 12/21/19 22:28 Sodium 136 mmol/L (136-145) 12/23/19 09:37 Potassium 4.3 mmol/L (3.5-5.1) 12/23/19 09:37 Chloride 103 mmol/L (98-107) 12/23/19 09:37 Carbon Dioxide 25.2 mmol/L (21.0-32.0) 12/23/19 09:37 Anion Gap 7.8 mmol/L (3-11) 12/23/19 09:37 BUN 21 mg/dL (7-18) H 12/23/19 09:37 Creatinine 0.97 mg/dL (0.55-1.02) 12/23/19 09:37 Estimated GFR/1.73 m2 55.40 (mL/min/1.73m2) 12/23/19 09:37 Glucose 214 mg/dL (74-106) H 12/23/19 09:37 Lactate 1.5 mmol/L (0.6-1.4) H 12/23/19 09:37 Calcium 8.2 mg/dL (8.5-10.1) L 12/23/19 09:37 Magnesium 1.7 mg/dL (1.8-2.4) L 12/22/19 06:45 Ferritin 322 ng/mL (8-252) H 12/21/19 22:28 Total Bilirubin 0.8 mg/dL (0.2-1.0) 12/21/19 22:28 AST 14 U/L (15-37) L 12/21/19 22:28 ALT 33 U/L (14-59) 12/21/19 22:28 Alkaline Phosphatase 71 U/L (46-116) 12/21/19 22:28 Lactate Dehydrogenase 189 U/L (81-234) 12/21/19 22:28 Troponin I < 0.05 ng/Ml (<0.06) 12/21/19 22:28 C-Reactive Protein 3.89 mg/dL (0.0-0.3) H 12/21/19 22:28 NT-Pro-B Natriuret Pep 633 pg/mL (<300) H 12/22/19 16:47 Total Protein 6.5 g/dL (6.4-8.2) 12/21/19 22:28 Albumin 2.7 g/dL (3.4-5.0) L 12/21/19 22:28 Procalcitonin 0.2 ng/mL 12/21/19 22:28 Urine Color Yellow (Yellow) 12/21/19 23:19 Urine Clarity Cloudy (Clear) 12/21/19 23:19 Urine pH 5.0 (5-8) 12/21/19 23:19 Ur Specific [place] 1.015 (1.005-1.025) 12/21/19 23:19 Urine Protein 100 mg/dL (Negative) H 12/21/19 23:19 Urine Ketones Negative mg/dL (Negative) 12/21/19 23:19 Urine Blood Large (Negative) H 12/21/19 23:19 Urine Nitrite Negative (Negative) 12/21/19 23:19 Urine Bilirubin Small (Negative) H 12/21/19 23:19 Urine Urobilinogen 0.2 EU/dL (Up TO 0.2) 12/21/19 23:19 Ur Leukocyte Esterase Small (Negative) H 12/21/19 23:19 Urine RBC >50 HPF (0-2) H 12/21/19 23:19 Urine WBC >50 HPF (0-5) H 12/21/19 23:19 Ur Epithelial Cells Negative HPF (Negative) 12/21/19 23:19 Urine Crystals Moderate amorphous HPF (Negative) 12/21/19 23:19 Urine Bacteria Many HPF (Negative) 12/21/19 23:19 Urine Casts Negative LPF (Negative) 12/21/19 23:19 Urine Mucus Negative (Negative) 12/21/19 23:19 Urine Other Negative (Negative) 12/21/19 23:19 Ur Culture Indicated? Yes 12/21/19 23:19 Urine Glucose Negative mg/dL (Negative) 12/21/19 23:19 COVID-19 PCR Negative (Negative) 12/22/19 00:05 Nasopharyn COVID-19 PCR Not Applicable 12/22/19 00:05 Ref Test Perform Site [facility] hospital lab 12/22/19 00:05
--- NOTE | 2019-12-23 13:53 | DM INPTCON_ITS ---
Date of service: 12/23/19 Time of Service: 13:53 Diabetes Inpatient Consult DESCRIPTION/ASSESSMENT: Received Light Technician Consult for 79 year old female admitted for UTI. PMH: paraplegia, DM. Estimated needs: 1250 kcal, 50 g protein, 1400 ml fluid Following Diabetic Diet with adequate intake (lunch 75%). Takes metformin at home and reports checking blood sugars daily with most fasting reading <100 mg/dl, post prantials <140 mg/dl. Meds: insulin, FeS04, Mg. Fasting sugars ranging from 143-216 mg/dl, with depressed sodium levels (129-132 mg/dl). Gerardo reports that she does not need additional education on blood sugars and that she is concerned that her sugars are higher in hospitial versus at home. Explained connection between infection, stress and blood sugars. Gerardo also reports drinking 2 quarts water daily (8 cups) that may explain decreased sodium levels at admission after several days of poor po intake. Reviewed fluid intake requirements . Provided Diabetes Meal Plan and contact information if has future questions. Not at risk for nutritional decline at this time. Recommend checking A1C during hospitalization. Overall, her diabetes appears to be well controlled at home with metformin per patient records of blood sugars. INTERVENTION: Diabetic Diet Diabetic education PLAN: Gerardo will follow if has questions re: diet/diabetes check Hemo A1C Time Spent in Nutritional Counseling and Treatment: 15 min spent face to face
--- NOTE | 2019-12-23 14:15 | CMPROGNOTE_ITS ---
- If Service Date Differs Date of service: 12/23/19 Time of Service: 14:15 Care Management Progress Note S/O: Gerardo is improving but she continues to require oxygen and remains on I.V. antibiotics. She easily engages in conversation, is pleasant, and shares she is looking forward to returning home in the next day or two. She talks about her family and states she is michael to have children who live nearby and who are involved in her care. She reports she used to enjoy embroidery but lost the use of her arms due to a spine injury a few years ago. CM will continue to follow. A: Gerardo is a 79 year old female admitted to [facility] on 12/22/2019 for a UTI. P: Anticipate Gerardo will be discharged home with a resumption of [facility] nursing when medically cleared by provider. She will be transported home via ambulance, coordinated by CM when ready. CM will continue to support patient and discharge planning needs.
--- NOTE | 2019-12-23 14:55 | DI.US_ITS ---
EXAM: US RENAL CLINICAL HISTORY: Urosepsis rule out pyelonephritis. TECHNIQUE: Addison scale, color and spectral Doppler were used. COMPARISON: CT CT CHEST/ABD/PEL WO from 12/22/2019 FINDINGS: Exam is limited by patient body habitus. Renal size in cm: Right: 10.2 cm left: 9.8 cm Echogenicity: Normal Hydronephrosis: No. No perinephric collection Cyst or mass: No Nephrolithiasis: No Other findings: Hepatic steatosis Bladder:Catheter in place. No gross wall thickening or mass. The ureteral jets were not visualized. . Prevoid vol: 62 cc Postvoid vol:19 cc DOPPLER FINDINGS: Symmetric blood flow IMPRESSION: Limited exam due to patient body habitus. There is no evidence of hydronephrosis or gross evidence of pyelonephritis. DATA REPOSITORY:
[2019-12-23 15:42] VITALS: BP 119/71; PULSE 84; RESP 18; TEMP 38; O2SAT 96
--- NOTE | 2019-12-23 18:39 | NUR.NOTE ---
Nursing Note: Right upper arm IV infiltrate, attempted right lower arm IV x 1 without success[address] Unable to place Mid line due to infiltrate and severe contractors. Patient states hx of breast cancer on the left with lymph node removal. Md notified and order obtained to use foot for IV access.
[2019-12-23] MEDS: Polyethylene Glycol 3350 17 GM PACKET PO (20:45)
[2019-12-23] MEDS: Atorvastatin 10 MG TAB PO (20:45)
[2019-12-23] MEDS: Patch Removal 4 EACH TP (20:45)
[2019-12-23] MEDS: Gabapentin 600 MG TAB PO (20:45)
[2019-12-23 23:09] VITALS: BP 106/64; PULSE 65; RESP 18; TEMP 37; O2SAT 96
[2019-12-24] MEDS: Lactated Ringers 1,000 ML 50 ML IV (01:58)
[2019-12-24] MEDS: MEROPENEM 1 GM in Normal Saline 100 ML IVPB ×2 (03:43→16:05)
[2019-12-24] MEDS: Levothyroxine 125 MCG TAB PO (06:22)
[2019-12-24 07:40] VITALS: BP 173/99; PULSE 90; RESP 19; TEMP 37.3; O2SAT 96
[2019-12-24] MEDS: Diclofenac 1% Gel 100 GM TUBE TP ×3 (08:09→19:40)
[2019-12-24] MEDS: Acetaminophen 500 MG TAB 1000 MG PO ×3 (08:11→19:41)
[2019-12-24] MEDS: Ferrous Sulfate 325 MG TAB PO (08:11)
[2019-12-24] MEDS: Omeprazole 20 MG CAPCR PO (08:11)
[2019-12-24] MEDS: Docusate Sodium 100 MG CAP PO (08:11)
[2019-12-24] MEDS: Anastrozole 1 MG TAB PO (08:11)
[2019-12-24] MEDS: Aspirin E.C. 81 MG TABEC PO (08:11)
[2019-12-24] MEDS: Gabapentin 400 MG CAP PO (08:11)
[2019-12-24] MEDS: Baclofen 10 MG TAB 20 MG PO ×2 (08:11→19:40)
[2019-12-24] MEDS: Magnesium Oxide 400 MG TAB PO ×2 (08:11→19:41)
[2019-12-24 08:31] LABS: Abs Immature Grans 0.08 k/cumm (0.0-0.09); Absolute Basophil Count 0.01 k/cumm (0.0-0.2); Absolute Eosinophil Count 0.22 k/cumm (0.0-0.7); Absolute Lymphocyte Count 1.55 k/cumm (1.2-3.4); Absolute Monocyte Count 0.47 k/cumm (0.11-0.7); Absolute Neutrophil Count 5.87 k/cumm (1.2-6.7); Basophils % 0.1; Eosinophils % 2.7; HCT 32.2 % (36.0-46.0); HGB 10.5 g/dL (12.0-15.5); Lymphocytes % 18.9; Mean Corp. HGB Concentration 32.6 g/dL (32.0-36.0); Mean Corpuscular Hemoglobin 32.3 pg (27.0-33.0); Mean Corpuscular Volume 99.1 fL (80-95); Mean Platelet Volume 10.4 fL (8.0-11.0); Monocytes % 5.7; Neutrophils % 71.6; Platelet Count 172 x1000/uL (130-400); RBC 3.25 m/cumm (4.00-5.20); RBC Distribution Width 13.2 % (11.7-14.6)
[2019-12-24 08:39] LABS: BUN 14 mg/dL (7-18); CREATININE 0.73 mg/dL (0.55-1.02); Calcium 8.3 mg/dL (8.5-10.1); Chloride 104 mmol/L (98-107); Glucose 137 mg/dL (74-106); Magnesium 1.4 mg/dL (1.8-2.4); Potassium 4.5 mmol/L (3.5-5.1); Sodium 136 mmol/L (136-145)
[2019-12-24] MEDS: Lidocaine 5% Patch 4 PATCH TD (08:57)
[2019-12-24 09:06] VITALS: O2SAT 97
[2019-12-24] MEDS: Enoxaparin 40 MG/0.4 ML SYR SC (09:20)
[2019-12-24] MEDS: MAGNESIUM SULFATE 4 GM/100 ML BAG IVPB (09:20)
[2019-12-24 09:26] LABS: Procalcitonin 0.2 ng/mL
[2019-12-24 09:33] VITALS: O2SAT 95
[2019-12-24 09:40] LABS: Glucose Negative (Negative); Leukocyte Esterase Trace (Negative); Nitrite Negative (Negative)
[2019-12-24 09:41] LABS: Bilirubin Negative (Negative); Blood Trace-intact (Negative); Ketones Negative (Negative); Urobilinogen 0.2 EU/dL (Up TO 0.2)
[2019-12-24 09:42] LABS: WBC 20-50 HPF (0-5)
[2019-12-24 09:43] LABS: Bacteria Few HPF (Negative); C & S Indicated? Yes; Casts Negative LPF (Negative); Crystals Negative HPF (Negative); Epithelial Cells Negative HPF (Negative); Mucus Negative (Negative); Other Cells Negative (Negative)
--- NOTE | 2019-12-24 10:14 | DSE_ITS ---
Date of service: 12/24/19 Time of Service: 10:15 DS: Diagnosis Discharge Diagnosis (1) Acute UTI: Start date: 12/24/19 Start time: 10:15 Status: Acute Asessment and Plan: UTI evidenced by ua, cx contaminated. Received 3 days of meropenem. Afebrile over 24 hours. Feeling better. repeat ua with no nitrates, trace leuk estrase, WBC 20-50 improved from greater than 50. suprapubic catheter changed by Dr. Briggs, will have HH continue to change catheter as outpatient. (2) Acute dehydration: Start date: 12/24/19 Start time: 10:18 Status: Resolved Asessment and Plan: Resolved, eating and drinking without nausea and vomiting. BUN improving, creatinine normal. (3) MOLLY (acute kidney injury): Start date: 12/24/19 Start time: 10:19 Status: Resolved Asessment and Plan: Secondary to dehydration. Given IVF, with resolution of injury (4) Diabetes mellitus: Start date: 12/24/19 Start time: 10:20 Status: Chronic Asessment and Plan: Continue low carb diet. Elevated on admission improving. Continue home regimen (5) Neurogenic bladder: Start date: 12/24/19 Start time: 10:21 Status: Chronic Asessment and Plan: Due to cervical spine paralysis. Suprapubic catheter in place. Continue HH and VNA for catheter care Above case discussed with Dr. Curtis who is in agreement. Discharge Plan Disposition Patient Disposition: HOME W/HOME HEALTH SERVICE Condition: Improving Discharge Details Chief Complaint: Fever Clinical Impression: Acute UTI, Acute dehydration, MOLLY (acute kidney injury), Infiltrate of lung present on imaging of chest Reason For Visit: UTI Admit Date/Time: 12/22/19 00:29 Admit Provider: Anirudh Steve Attending Provider: Anirudh Steve Primary Care Provider: Jessica Ramos ED [facility] Course: 79 y.o. 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 ER findings of note for temp 37.7, BP 97/sys (at or near baseline), pyuria, white count 14 and CXR with bilateral interstitial pattern . Mg 1.1 and sodium 129 also noted. Admitted for further evaluation. Over course of hospitalization she was initiated on merpenom for UTI, she does have a suprapubic catheter changed by Dr. Briggs while in the hospital. Fevers deverfesced after 24 hours of meropenom, urine cx revealing gram negative rods and mixed suzie, appears to be a contamination. Renal u/s to r/o pylo, no evidence of hydronephrosis. Repeat u/a today with no nitrates, trace leuk estrase, 20-50 wbc improved from u/a on admission. Blood cultures no growth to date. Bun and creatinine improved with IVF. She is eating and drinking, no diarrhea. Her blood sugar has been elevated on admission, however they have been in 120's -130's last 24 hours. She should resume her regimen at home. She does have a rash to her bottom and legs to high thigh, this appears to be related to the pad on her bed. Over night a sheet was applied for protective barrier and hydrocortisone cream applied, rash is improved. Erythema improving, continue cream as an outpatient. Magnesium did require daily repletion today she was 1.4, she should increase mag to 800 bid. She is feeling well looking well and being discharged home with resumption of services and VNA for monthly catheter exchange. She received a full 3 days meropenem. She denies CP, SOB, N/v/d. Home Meds and New Rx's Prescriptions: New hydrocortisone 1 % cream 1 applic topical TID Qty: 1 RF: 0 Continued gabapentin [Neurontin] 400 mg Capsule 400 mg PO DAILY RF: 0 calcium carbonate-vitamin D3 [Calcium 500 With D] 500 mg(1,250mg) -400 unit Tablet 1 tab PO BID RF: 0 levothyroxine 125 mcg Tablet 1 mcg PO DAILY RF: 0 gabapentin 600 mg Tablet 600 mg PO .QHS RF: 0 omeprazole 20 mg Capsule,Delayed Release(Dr/Ec) 20 mg PO DAILY RF: 0 Florastor 250 mg capsule 250 mg PO BID Qty: 20 RF: 0 polyethylene glycol 3350 [Miralax] 17 gram Powder In Packet 17 g PO .QHS RF: 0 ferrous sulfate 324 mg (65 mg iron) Tablet,Delayed Release (Dr/Ec) 324 mg PO DAILY RF: 0 diclofenac sodium 1 % gel 2 g TOPICAL QID RF: 0 Renacidin 1,980.6 mg-59.4 mg-980.4mg/30mL solution 30 ml irrigation DAILY RF: 0 multivitamin Tablet 1 tab PO DAILY RF: 0 metformin 500 mg Tablet 500 mg PO BID RF: 0 anastrozole 1 mg Tablet 1 mg PO DAILY RF: 0 sennosides [senna] 8.6 mg Tablet 8.6 mg PO BID RF: 0 atorvastatin 10 mg Tablet 10 mg PO HS RF: 0 melatonin 3 mg Tablet 3 mg PO PRN PRNRF: 0 aspirin 81 mg Tablet,Delayed Release (Dr/Ec) 81 mg PO DAILY RF: 0 acetaminophen 500 mg Tablet 1,000 mg PO TID RF: 0 baclofen 10 mg Tablet 20 mg PO BID RF: 0 lidocaine [Lidoderm] 5 % Adhesive Patch,Medicated 5 patch Transdermal DAILY RF: 0 carbamide peroxide [Debrox] 6.5 % Drops 5 drp otic (ear) BID RF: 0 docusate sodium 100 mg Capsule 100 mg PO BID RF: 0 Santyl 250 unit/gram Ointment Topical DIRECTED RF: 0 magnesium oxide 400 mg Capsule 400 mg PO BID RF: 0 Discharge Instructions Instructions: Dehydration (GEN), Acute Kidney Injury (GEN), Catheter-associated Urinary Tract Infection (DC) Additional Instructions: increase magnesium to 800 mg BID Continue to apply hydrocortisone cream three times a day until rash is gone. Follow up with PCP in 2 weeks. continue HH service and VNA Activity:: Activity as Tolerated Equipment/Supplies:: No Equipment Needed Diet:: Carb Counting Discharge Orders Discharge Orders: Discharge Order (Routine); Ordered 12/24/19 Ordered By: Isabel Yanes DS: Summary Status at Discharge Functional status at discharge: bed bound Overall status at discharge: patient is progressing back to baseline Mental Status: mental status grossly normal Speech and Movement: speech and movement normal Mood: congruent mood Affect: normal affect Exam Narrative Exam Narrative: Elderly female sitting up in a semi-gaines position watching TV. She is alert and oriented person place time circumstance. Lungs reveal fine bibasilar rales no rhonchi or wheezing. Heart is regular rate and rhythm with a soft systolic murmur grade 2/6 along the aortic outflow. Abdomen soft and nontender. Normal active bowel sounds. Rash to lower abd and upper thigh area, improving. Unable to move upper and lower extremities but she is able to move head and shoulders. Psych Mental Status: mental status grossly normal Speech and Movement: speech and movement normal Mood: congruent mood Affect: normal affect DS: Data Vitals/I&O Vitals and I&O: Vital Signs Temperature 37.3 C 12/24/19 07:40 Temperature Source Tympanic 12/24/19 07:40 Pulse 90 12/24/19 07:40 Pulse Rhythm Regular 12/24/19 04:13 Pulse 79 12/22/19 01:10 Respiratory Rate 19 12/24/19 07:40 Respiratory Effort Non-Labored 12/24/19 04:13 Respiratory Depth Normal 12/24/19 04:13 Respiratory Pattern Normal 12/24/19 04:13 Blood Pressure 173/99 H 12/24/19 07:40 Blood Pressure Mean 64 12/22/19 01:18 Blood Pressure Position Supine 12/21/19 22:10 Pulse Oximetry 95 12/24/19 09:33 Oxygen Delivery Method Room Air 12/24/19 09:33 Oxygen Flow Rate 0 12/24/19 09:33 Pain Level 5 12/24/19 07:40 Comment 12/22/19 18:44 Intake & Output 12/23/19 12/23/19 12/24/19 11:59 23:59 11:59 Intake Total 1523.167 / 1943.167 420 / 0835.301 7908.333 / 1194.333 Output Total 400 / 1400 1000 / 1400 600 / 600 Balance 1123.167 / 543.167 -580 / 543.167 594.333 / 594.333 Intake: IV 1403.167 / 1503.167 100 / 1503.167 884.333 / 884.333 Oral 120 / 440 320 / 440 310 / 310 Output: Urine 400 / 1400 1000 / 1400 600 / 600 Other: Urine Color Pale Yellow Urine Appearance Clear Clear Clear Stool Size Small Stool Characteristics Liquid Brown Voiding Methods Incontinent Data Completed and Pending Completed studies during hospitalization [Text1]: EXAM: XR PORTABLE CHEST AP CLINICAL HISTORY: hypoxemia, rales TECHNIQUE: 2D digital imaging was performed. COMPARISON: CR XR CHEST 2V PA LATERAL from 05/03/2018 CR XR CHEST 1V IN DI DEPT from 06/22/2018 CR,XR XR PORTABLE CHEST AP from 12/21/[address] CHEST/ABD/PEL WO from 12/22/[address] CHEST/ABD/PEL WO from 12/22/2019 FINDINGS: The exam is limited by suboptimal pulmonary inflation. The heart size is within normal limits for projection. Underlying chronic interstitial changes are again noted. No superimposed infiltrate, effusion or overt pulmonary edema is seen. IMPRESSION: No acute abnormality. FINDINGS: Lungs: Hazy mild perihilar and left peripheral predominant interstitial opacities appears slightly improved. Pleural space: No large effusions. Click no pneumo left axillary surgical clips. Heart/Mediastinum: No cardiomegaly. Bones/joints: Cervical fixation hardware partially seen similar to prior. No displaced fracture. IMPRESSION: Hazy mild interstitial prominence improved compared to prior. Consider interstitial edema, infectious and inflammatory causes. FINDINGS: Exam is limited by patient body habitus. Renal size in cm: Right: 10.2 cm left: 9.8 cm Echogenicity: Normal Hydronephrosis: No. No perinephric collection Cyst or mass: No Nephrolithiasis: No Other findings: Hepatic steatosis Bladder:Catheter in place. No gross wall thickening or mass. The ureteral jets were not visualized.. Prevoid vol: 62 cc Postvoid vol:19 cc DOPPLER FINDINGS: Symmetric blood flow IMPRESSION: Limited exam due to patient body habitus. There is no evidence of hydronephrosis or gross evidence of pyelonephritis. Labs on day of discharge: Labs from last 24 hours 12/24/19 12/24/19 12/24/19 08:47 08:19 08:19 WBC 8.20 RBC 3.25 L Hgb 10.5 L Hct 32.2 L MCV 99.1 H MCH 32.3 MCHC 32.6 RDW 13.2 Plt Count 172 MPV 10.4 Immature Gran % 1.0 Neutrophils % 71.6 Lymphocytes % 18.9 Monocytes % 5.7 Eosinophils % 2.7 Basophils % 0.1 Absolute Neutrophils 5.87 Absolute Lymphocytes 1.55 Absolute Monocytes 0.47 Absolute Eosinophils 0.22 Absolute Basophils 0.01 Sodium Potassium Chloride Carbon Dioxide Anion Gap BUN Creatinine Estimated GFR/1.73 m2 Glucose Calcium Magnesium Procalcitonin 0.2 Urine Color Yellow Urine Clarity Clear Urine pH 6.0 Ur Specific [place] 1.020 Urine Protein Negative Urine Ketones Negative Urine Blood Trace-intact H Urine Nitrite Negative Urine Bilirubin Negative Urine Urobilinogen 0.2 Ur Leukocyte Esterase Trace Urine RBC 10-20 H Urine WBC 20-50 H Ur Epithelial Cells Negative Urine Crystals Negative Urine Bacteria Few Urine Casts Negative Urine Mucus Negative Urine Other Negative Ur Culture Indicated? Yes Urine Glucose Negative 12/24/19 08:19 WBC RBC Hgb Hct MCV MCH MCHC RDW Plt Count MPV Immature Gran % Neutrophils % Lymphocytes % Monocytes % Eosinophils % Basophils % Absolute Neutrophils Absolute Lymphocytes Absolute Monocytes Absolute Eosinophils Absolute Basophils Sodium 136 Potassium 4.5 Chloride 104 Carbon Dioxide 28.0 Anion Gap 4.0 BUN 14 D Creatinine 0.73 Estimated GFR/1.73 m2 >= 60.00 Glucose 137 H D Calcium 8.3 L Magnesium 1.4 L Procalcitonin Urine Color Urine Clarity Urine pH Ur Specific [place] Urine Protein Urine Ketones Urine Blood Urine Nitrite Urine Bilirubin Urine Urobilinogen Ur Leukocyte Esterase Urine RBC Urine WBC Ur Epithelial Cells Urine Crystals Urine Bacteria Urine Casts Urine Mucus Urine Other Ur Culture Indicated? Urine Glucose 12/24/19 08:47 Urine - Reflex from Urine Culture - Pending Preliminary micro results at discharge 12/24/19 08:47 Urine Culture - Pending Urine - Reflex from 12/21/19 23:40 Blood Culture - Preliminary Blood NO GROWTH 48 HOURS 12/21/19 23:30 Blood Culture - Preliminary Blood NO GROWTH 48 HOURS 12/22/19 16:56 Blood Culture - Preliminary Blood NO GROWTH 24 HOURS 12/22/19 16:47 Blood Culture - Preliminary Blood NO GROWTH 24 HOURS [facility] Medical History AAA (abdominal aortic aneurysm) (Chronic) Diabetes mellitus (Chronic) History of breast cancer (Acute) Hyperlipemia (Chronic) Intracranial aneurysm (Chronic) Neurogenic bladder (Chronic) Paraplegia (Chronic) Suprapubic catheter (Chronic) Surgical History H/O breast surgery (Acute) H/O cervical spine surgery (Acute) S/P cholecystectomy (Acute) Social History Smoking/Tobacco Use Status: Former Tobacco Use Drug use: Never Do you feel safe in your relationship?: Yes
--- NOTE | 2019-12-24 11:23 | CMPROGNOTE_ITS ---
- If Service Date Differs Date of service: 12/24/19 Time of Service: 11:23 Care Management Progress Note S/O: Gerardo was lying in bed when CM met with her. She stated that she was feeling better today. Per report, the provider planned to repeat labs today. After reviewing labs, decided to keep Gerardo overnight for more monitoring. CM called and left a voicemail for her , Bandar, to update him on her plan. If she improves overnight, she may be able to discharge home tomorrow. CM will continue to follow. A: Gerardo is a 79 year old female admitted to [facility] on 12/22/19 with UTI. P: Anticipate Gerardo will return home when medically cleared with a resumption of RN through [facility]. CM will coordinate ambulance transport when ready. She will follow up with her PCP and discharge plan of care. CM will continue to follow.
[2019-12-24 12:00] VITALS: BP 177/79; PULSE 94; RESP 19; TEMP 36.9; O2SAT 94
[2019-12-24 13:38] LABS: Clarity Clear (Clear)
[2019-12-24] MEDS: Gabapentin 300 MG CAP PO (13:51)
[2019-12-24 15:30] VITALS: BP 100/60; BP 89/51; PULSE 81; RESP 18; TEMP 37.2; O2SAT 93
[2019-12-24] MEDS: Normal Saline Flush 10 ML SYR IVP (16:06)
[2019-12-24 19:10] VITALS: BP 156/88; PULSE 89; RESP 18; TEMP 37; O2SAT 94
[2019-12-24] MEDS: Patch Removal 4 EACH TP (19:42)
[2019-12-24] MEDS: Gabapentin 600 MG TAB PO (22:46)
[2019-12-24] MEDS: Atorvastatin 10 MG TAB PO (22:46)
[2019-12-25] MEDS: MEROPENEM 1 GM in Normal Saline 100 ML IVPB (04:12)
[2019-12-25] MEDS: Normal Saline Flush 10 ML SYR IVP (04:19)
[2019-12-25] MEDS: Levothyroxine 125 MCG TAB PO (07:00)
[2019-12-25 07:10] VITALS: BP 171/84; PULSE 91; RESP 18; TEMP 36.8; O2SAT 96
[2019-12-25 07:45] VITALS: O2SAT 96
[2019-12-25 07:48] VITALS: BP 165/90
[2019-12-25] MEDS: Docusate Sodium 100 MG CAP PO (07:50)
[2019-12-25] MEDS: Aspirin E.C. 81 MG TABEC PO (07:50)
[2019-12-25] MEDS: Magnesium Oxide 400 MG TAB PO (07:51)
[2019-12-25] MEDS: Ferrous Sulfate 325 MG TAB PO (07:51)
[2019-12-25] MEDS: Anastrozole 1 MG TAB PO (07:51)
[2019-12-25] MEDS: Omeprazole 20 MG CAPCR PO (07:51)
[2019-12-25] MEDS: Acetaminophen 500 MG TAB 1000 MG PO (07:51)
[2019-12-25] MEDS: Baclofen 10 MG TAB 20 MG PO (07:51)
[2019-12-25] MEDS: Gabapentin 400 MG CAP PO (07:51)
[2019-12-25] MEDS: Lidocaine 5% Patch 4 PATCH TD (07:52)
[2019-12-25] MEDS: Diclofenac 1% Gel 100 GM TUBE TP ×2 (07:52→14:06)
[2019-12-25] MEDS: Enoxaparin 40 MG/0.4 ML SYR SC (07:52)
[2019-12-25] MEDS: Insulin Aspart 300 UNITS/3 ML PEN SC (07:56)
[2019-12-25 09:02] LABS: Anion Gap 4.3 mmol/L (3-11); BUN 10 mg/dL (7-18); C-Reactive Protein 2.42 mg/dL (0.0-0.3); CO2 27.7 mmol/L (21.0-32.0); CREATININE 0.74 mg/dL (0.55-1.02); Calcium 8.2 mg/dL (8.5-10.1); Chloride 104 mmol/L (98-107); Glucose 145 mg/dL (74-106); Magnesium 1.7 mg/dL (1.8-2.4); Potassium 4.5 mmol/L (3.5-5.1); Sodium 136 mmol/L (136-145)
--- NOTE | 2019-12-25 10:44 | DSE_ITS ---
Date of service: 12/25/19 Time of Service: 10:45 DS: Diagnosis Discharge Diagnosis (1) Sepsis: Status: Resolved Asessment and Plan: due to acute UTI, POA (2) Acute UTI: Status: Acute Asessment and Plan: mixed suzie (3) MOLLY (acute kidney injury): Status: Resolved (4) Acute dehydration: Status: Resolved (5) Toxic metabolic encephalopathy: Status: Resolved (6) Neurogenic bladder: Status: Chronic (7) Chronic suprapubic catheter: Status: Chronic (8) Diabetes mellitus: Status: Chronic (9) Hypomagnesemia: Status: Acute (10) Hyponatremia: Status: Resolved (11) Fungal dermatitis: Status: Acute (12) Neuropathic pain of finger of right hand: Status: Acute (13) COVID-19 ruled out: Status: Acute Discharge Plan Disposition Patient Disposition: HOME W/HOME HEALTH SERVICE Condition: Improving Discharge Details Chief Complaint: Fever Clinical Impression: Acute UTI, Acute dehydration, MOLLY (acute kidney injury), Infiltrate of lung present on imaging of chest Reason For Visit: UTI Admit Date/Time: 12/22/19 00:29 Admit Provider: Aniruhd Steve Attending Provider: Anirudh Steve Primary Care Provider: Jessica Ramos ED Provider: Angel Cabrales [facility] Course Hospital Course: Ms Almaraz is a 79 y.o. female with PMHx of paraplegia post cervical spine injury with resultant neurogenic bladder managed with suprapubic catheter exchanged by home health nursing, as well as NIDDM2, chronic neuropathic pain, Hypothyroidism,who was admitted to [facility] hospitalist service on 12/22/2019 with sepsis due to UTI with toxic metabolic encephalopathy. She was initiated on IVF due to dehydration/MOLLY/hyponatremia and empiric ceftriaxone, but then upgraded to meropenem due to severity of illness. Her suprapubic catheter was exchanged on 12/23/[address] Briggs, who saw the patient in consultation. There was no evidence of renal pathology on ultrasound. COVID-19 was ruled out. The patient's urine C&S grew mixed gram positive suzie. Her blood cultures remained negative to date. She completed 4 days of IV meropnenem in the hospital. With these treatments, she defervesced, her white count normalized, and the patient's mental status came back to baseline. She is eating and drinking, and transient diarrhea that she had on presentation has resolved. She does have a rash to her bottcoks and legs to high thigh, most consistent with fungal dermatitis. For this, she was initiated on a combination of clotrimazole/vitamin A&D ointment/zinc. At this point, because the patient's urine culture was mixed, but she does appear to benefit from ongoing antibiotics, she will be discharged with 3 more days of augmentin. She is being discharged home with resumption of her home health services (nursing, PT, OT). Home health nursing is asked to drawn CBC with diff, BMP, magnesium, and CRP on 10/27/2019 - results to go to PCP. Care for patient as well as completion of her discharge summary took 45 minutes on the day of discharge. Home Meds and New Rx's Prescriptions: New amoxicillin-pot clavulanate [Augmentin] 875-125 mg tablet 1 tab PO BID Qty: 7 RF: 0 zinc oxide 20 % Ointment 60 g topical TID Qty: 0 RF: 0 clotrimazole 1 % Cream 60 % topical TID Qty: 0 RF: 0 vits A and D-white pet-lanolin Ointment 60 g topical TID Qty: 0 RF: 0 magnesium oxide 400 mg Capsule 800 mg PO BID Qty: 120 RF: 0 Continued calcium carbonate-vitamin D3 [Calcium 500 With D] 500 mg(1,250mg) -400 unit Tablet 1 tab PO BID RF: 0 levothyroxine 125 mcg Tablet 1 mcg PO DAILY RF: 0 gabapentin 600 mg Tablet 600 mg PO .QHS RF: 0 omeprazole 20 mg Capsule,Delayed Release(Dr/Ec) 20 mg PO DAILY RF: 0 Florastor 250 mg capsule 250 mg PO BID Qty: 20 RF: 0 polyethylene glycol 3350 [Miralax] 17 gram Powder In Packet 17 g PO .QHS RF: 0 ferrous sulfate 324 mg (65 mg iron) Tablet,Delayed Release (Dr/Ec) 324 mg PO DAILY RF: 0 diclofenac sodium 1 % gel 2 g TOPICAL QID RF: 0 Renacidin 1,980.6 mg-59.4 mg-980.4mg/30mL solution 30 ml irrigation DAILY RF: 0 multivitamin Tablet 1 tab PO DAILY RF: 0 metformin 500 mg Tablet 500 mg PO BID RF: 0 anastrozole 1 mg Tablet 1 mg PO DAILY RF: 0 sennosides [senna] 8.6 mg Tablet 8.6 mg PO BID RF: 0 atorvastatin 10 mg Tablet 10 mg PO HS RF: 0 melatonin 3 mg Tablet 3 mg PO PRN PRNRF: 0 aspirin 81 mg Tablet,Delayed Release (Dr/Ec) 81 mg PO DAILY RF: 0 acetaminophen 500 mg Tablet 1,000 mg PO TID RF: 0 baclofen 10 mg Tablet 20 mg PO BID RF: 0 lidocaine [Lidoderm] 5 % Adhesive Patch,Medicated 5 patch Transdermal DAILY RF: 0 carbamide peroxide [Debrox] 6.5 % Drops 5 drp otic (ear) BID RF: 0 docusate sodium 100 mg Capsule 100 mg PO BID RF: 0 Santyl 250 unit/gram Ointment Topical DIRECTED RF: 0 Changed gabapentin [Neurontin] 400 mg Capsule 400 mg PO BID@0800,1400 Qty: 60 RF: 0 Discharge Instructions Instructions: Amoxicillin/Clavulanate Potassium (By mouth), Dehydration (GEN), Acute Kidney Injury (GEN), Catheter-associated Urinary Tract Infection (DC) Additional Instructions: Finish antibiotics as prescribed. Return to the hospital with any fever, bleeding, chest pain, shortness of b reath, or changes in mental status. Follow up with PCP in 1-2 weeks. Home health nursing: collect CBC w/diff, BMP, magnesium, CRP on 12/27/2019. Results to PCP. Care Plan Goals: Home with resumption of home health services (nursing, PT, OT). Message for OT: patient states that she is interested in new braces for her BUE. Home health nursing: collect CBC w/diff, BMP, magnesium, CRP on 12/27/2019. Results to PCP. Referrals: Jessica Ramos [Primary Care Provider] - Nikos Briggs MD [ [facility] STAFF PHYSICIAN] - Activity:: Activity as Tolerated Equipment/Supplies:: No Equipment Needed Diet:: Carb Counting Discharge Orders Discharge Orders: Discharge Order (Routine); Ordered 12/25/19 Ordered By: Lauren Curtis DS: Summary Status at Discharge Functional status at discharge: bed bound Overall status at discharge: patient is back to baseline Mental Status: mental status grossly normal Speech and Movement: speech and movement normal Mood: congruent mood Affect: normal affect Exam Narrative Exam Narrative: General: Pleasant elderly female, A&Ox3, laying comfortably in bed HEENT: EOMI, MMM Heart: RRR, no m/r/g Lungs: crackes at B bases (chronic) Abdomen: soft, nontender, nondistended Extremities: no edema BLE's, BUE in decerebrate posturing; R thumb with TTP Psych Mental Status: mental status grossly normal Speech and Movement: speech and movement normal Mood: congruent mood Affect: normal affect DS: Data Vitals/I&O Vitals and I&O: Vital Signs Temperature 36.8 C 12/25/19 07:10 Temperature Source Tympanic 12/25/19 07:10 Pulse 91 H 12/25/19 07:10 Pulse Rhythm Regular 12/25/19 04:05 Pulse 79 12/22/19 01:10 Respiratory Rate 18 12/25/19 07:10 Respiratory Effort Non-Labored 12/25/19 04:05 Respiratory Depth Normal 12/25/19 04:05 Respiratory Pattern Normal 12/25/19 04:05 Blood Pressure 165/90 H 12/25/19 07:48 Blood Pressure Mean 64 12/22/19 01:18 Blood Pressure Position Supine 12/21/19 22:10 Pulse Oximetry 96 12/25/19 07:45 Oxygen Delivery Method Room Air 12/25/19 07:45 Oxygen Flow Rate 0 12/25/19 07:45 Pain Level 0 12/25/19 07:10 Comment 12/25/19 05:50 Intake & Output 12/24/19 12/24/19 12/25/19 11:59 23:59 11:59 Intake Total 1440.166 / 2050.166 610 / 2050.166 220 / 220 Output Total 950 / 1925 975 / 1925 400 / 400 Balance 490.166 / 125.166 -365 / 125.166 -180 / -180 Intake: IV 1130.166 / 1330.166 200 / 1330.166 Oral 310 / 720 410 / 720 220 / 220 Output: Urine 950 / 1925 975 / 1925 400 / 400 Other: Urine Color Yellow Yellow Yellow Urine Appearance Clear Clear Clear Stool Size Smear Small Large Stool Characteristics Soft Soft Liquid Brown Brown Green Data Completed and Pending Completed studies during hospitalization [Text1]: CT chest/abdomen/pelvis 12/21/2019: Limited exam due to motion. Underlying fibrotic changes and mild atelectasis is seen in the chest. Large quantity of stool in the rectum. Mild nonspecific mid small bowel dilatation without evidence of obstruction. CXR 12/21/2019: Chronic fibrotic changes. No acute abnormality. CXR 12/22/2019: No acute abnormality. US renal 12/22/2019: Limited exam due to patient body habitus. There is no evidence of hydronephrosis or gross evidence of pyelonephritis. Labs on day of discharge: Labs from last 24 hours 12/25/19 12/25/19 12/24/19 08:45 05:35 08:47 WBC Pending RBC Pending Hgb Pending Hct Pending MCV Pending MCH Pending MCHC Pending RDW Pending Plt Count Pending MPV Pending Immature Gran % Pending Neutrophils % Pending Lymphocytes % Pending Monocytes % Pending Eosinophils % Pending Basophils % Pending Absolute Neutrophils Pending Absolute Lymphocytes Pending Absolute Monocytes Pending Absolute Eosinophils Pending Absolute Basophils Pending Sodium 136 Potassium 4.5 Chloride 104 Carbon Dioxide 27.7 Anion Gap 4.3 BUN 10 Creatinine 0.74 Estimated GFR/1.73 m2 >= 60.00 Glucose 145 H Calcium 8.2 L Magnesium 1.7 L C-Reactive Protein 2.42 H Urine Clarity Clear 12/24/19 08:19 WBC RBC Hgb Hct MCV MCH MCHC RDW Plt Count MPV Immature Gran % Neutrophils % Lymphocytes % Monocytes % Eosinophils % Basophils % Absolute Neutrophils Absolute Lymphocytes Absolute Monocytes Absolute Eosinophils Absolute Basophils Sodium Potassium Chloride Carbon Dioxide Anion Gap BUN Creatinine Estimated GFR/1.73 m2 Glucose Calcium Magnesium C-Reactive Protein 4.60 H Urine Clarity Preliminary micro results at discharge 12/24/19 08:47 Urine Culture - Preliminary Urine - Reflex from Ua Gram Positive Suzie Gram Positive Suzie,Mixed 12/21/19 23:40 Blood Culture - Preliminary Blood NO GROWTH 72 HOURS 12/21/19 23:30 Blood Culture - Preliminary Blood NO GROWTH 72 HOURS 12/22/19 16:56 Blood Culture - Preliminary Blood NO GROWTH 48 HOURS 12/22/19 16:47 Blood Culture - Preliminary Blood NO GROWTH 48 HOURS [facility] Medical History (Updated 12/25/19 @ 10:55 by Lauren Curtis MD) AAA (abdominal aortic aneurysm) (Chronic) Diabetes mellitus (Chronic) History of breast cancer (Acute) Hyperlipemia (Chronic) Interstitial lung disease (Acute) Intracranial aneurysm (Chronic) Neurogenic bladder (Chronic) Paraplegia (Chronic) Suprapubic catheter (Chronic) Surgical History (Updated 12/25/19 @ 10:49 by Lauren Curtis MD) Chronic suprapubic catheter (Chronic) H/O breast surgery (Acute) H/O cervical spine surgery (Acute) S/P cholecystectomy (Acute) Social History Smoking/Tobacco Use Status: Former Tobacco Use Drug use: Never Do you feel safe in your relationship?: Yes
--- NOTE | 2019-12-25 15:32 | CMDISCH_ITS ---
- If Service Date Differs Date of service: 12/25/19 Time of Service: 15:32 LACE Index Scoring Tool - Questions: Length of Stay (in days): 4 - 6 Acuity (Admit via E.D.?): Yes Comorbidities: Diabetes w/o Complication E.D. Visits: 2 - Answers: Total Score: 10 Risk of Readmission: High Risk Care Management Discharge Reason for Hospitalization: UTI, dehydration, MOLLY (acute kidney injury), and infiltrate of lung present on imaging of chest. Discharge Plan: Gerardo will return home with a resumption of HH RN. CM faxed discharge summary to [facility] to inform them of the discharge. CM coordinated ambulance transport via [employer]. CM called to update the family, who will be present upon her arrival. She is agreeable to returning home. Patient/Family Education Needs: Review discharge instructions with pt and family, discussion of self care needs and goals of care. Services Needed at Discharge: Home Health Care Services (resumption, [facility]), Transportation ([facility])
== END 2019-12-25 12:37 | disposition home health service (06) | DRG 689 ==
LOC: ER 12-22 01:21 → MS 12-22 01:22
PROVIDERS: Internal Medicine; Nurse Practitioner Family; Admitting Provider General Practice; Emergency Provider Emergency Medicine; PCP Nurse Practitioner Family; Visit Provider Internal Medicine
DX: N39.0 Urinary tract infection, site not specified (principal); A41.9 Sepsis, unspecified organism; G92 Toxic encephalopathy; N17.9 Acute kidney failure, unspecified; E87.1 Hypo-osmolality and hyponatremia; E83.42 Hypomagnesemia; E86.0 Dehydration; R91.8 Other nonspecific abnormal finding of lung field; N31.9 Neuromuscular dysfunction of bladder, unspecified; B95.2 Enterococcus as the cause of diseases classified elsewhere; Z43.5 Encounter for attention to cystostomy; Z46.6 Encounter for fitting and adjustment of urinary device; B36.8 Other specified superficial mycoses; E11.9 Type 2 diabetes mellitus without complications; G62.9 Polyneuropathy, unspecified; E03.9 Hypothyroidism, unspecified; Z03.818 Encounter for observation for suspected exposure to other biological agents ruled out; Z79.84 Long term (current) use of oral hypoglycemic drugs; Z71.3 Dietary counseling and surveillance
CPT/HCPCS: 36415; 51705; 71250; 76770; 80048; 80051; 80053; 84145; 87040; 87077; 96361; 96365; 96366; 99222; 99233; 99239; 99252; 99285; E0191; J1650; U0003; 71045; 74176; 81003; 81015; 82728; 83605; 83615; 83735; 83880; 84484; 85025; 85049; 85379; 86140; 87086; 87186; 87324; 99232; J0696; J3475; J3490

== ENCOUNTER 2020-03-20 13:57 | Emergency (ER) | payer MEDICARE, OTHER, MEDICAID, SELFPAY ==
[2020-03-20 14:02] VITALS: BP 100/47; PULSE 80; RESP 16; TEMP 36.5; O2SAT 95
--- NOTE | 2020-03-20 14:09 | ED.GENADUL_ITS ---
Discharge Plan Disposition Patient Disposition: HOME Condition: Stable Discharge Details Chief Complaint: Urinary Clinical Impression: Neurogenic bladder, Suprapubic catheter dysfunction Primary Care Provider: Jessica Ramos ED Provider: Orestes Rhoades [place] Meds and New Rx's Prescriptions: Continued calcium carbonate-vitamin D3 [Calcium 500 With D] 500 mg(1,250mg) -400 unit Tablet 1 tab PO BID RF: 0 levothyroxine 125 mcg Tablet 1 mcg PO DAILY RF: 0 gabapentin 600 mg Tablet 600 mg PO .QHS RF: 0 omeprazole 20 mg Capsule,Delayed Release(Dr/Ec) 20 mg PO DAILY RF: 0 Florastor 250 mg capsule 250 mg PO BID Qty: 20 RF: 0 polyethylene glycol 3350 [Miralax] 17 gram Powder In Packet 17 g PO .QHS RF: 0 ferrous sulfate 324 mg (65 mg iron) Tablet,Delayed Release (Dr/Ec) 324 mg PO DAILY RF: 0 diclofenac sodium 1 % gel 2 g TOPICAL QID RF: 0 Renacidin 1,980.6 mg-59.4 mg-980.4mg/30mL solution 30 ml irrigation DAILY RF: 0 amoxicillin-pot clavulanate [Augmentin] 875-125 mg tablet 1 tab PO BID Qty: 7 RF: 0 zinc oxide 20 % Ointment 60 g topical TID Qty: 0 RF: 0 clotrimazole 1 % Cream 60 % topical TID Qty: 0 RF: 0 vits A and D-white pet-lanolin Ointment 60 g topical TID Qty: 0 RF: 0 gabapentin [Neurontin] 400 mg Capsule 400 mg PO BID@0800,1400 Qty: 60 RF: 0 magnesium oxide 400 mg Capsule 800 mg PO BID Qty: 120 RF: 0 multivitamin Tablet 1 tab PO DAILY RF: 0 metformin 500 mg Tablet 500 mg PO BID RF: 0 anastrozole 1 mg Tablet 1 mg PO DAILY RF: 0 sennosides [senna] 8.6 mg Tablet 8.6 mg PO BID RF: 0 atorvastatin 10 mg Tablet 10 mg PO HS RF: 0 melatonin 3 mg Tablet 3 mg PO PRN PRNRF: 0 aspirin 81 mg Tablet,Delayed Release (Dr/Ec) 81 mg PO DAILY RF: 0 acetaminophen 500 mg Tablet 1,000 mg PO TID RF: 0 baclofen 10 mg Tablet 20 mg PO BID RF: 0 lidocaine [Lidoderm] 5 % Adhesive Patch,Medicated 5 patch Transdermal DAILY RF: 0 carbamide peroxide [Debrox] 6.5 % Drops 5 drp otic (ear) BID RF: 0 docusate sodium 100 mg Capsule 100 mg PO BID RF: 0 Santyl 250 unit/gram Ointment Topical DIRECTED RF: 0 Discharge Instructions Instructions: How to Care for Your Suprapubic Catheter (DC) Additional Instructions: I placed you on our follow up list to see our urologist at your request if you feel more ill, have fevers or severe worsening pain return to the emergency department Medical Decision Making 79 yo female who is paraplegic with chronic indwelling suprpubic catheter comes in after her catheter got dislodged and home health was unable to replace. No symptoms otherwise feels well. I was able to replace a catheter here without issues under sterile techinque, no erythema or discharge from the suprapubic entry. She is requesting urology referral here for outpatient management of the catheter, will d/c with return precautions Differential Diagnosis Differential Diagnosis: catheter problems HPI General Mode of arrival: EMS . Date/Time Provider Initiated Documentation: 03/20/20 14:09 . Limitations to Documentation: no limitations . Information obtained by: patient . History of Present Illness 79 year old F presents to the emergency department with the chief complaint of suprapubic catheter dislodged, described as moderate, and it has been constant. No relieving factors improve symptom(s), No exacerbating factors reported . Patient did receive the following treatments prior to arrival, none Related Data Home Medications Medication Instructions Recorded Confirmed Santyl TOPICAL DIRECTED 06/23/18 08/24/19 acetaminophen 1,000 mg PO TID 06/23/18 12/21/19 anastrozole 1 mg PO DAILY 06/23/18 12/21/19 aspirin 81 mg PO DAILY 06/23/18 12/21/19 atorvastatin 10 mg PO HS 06/23/18 12/21/19 baclofen 20 mg PO BID 06/23/18 12/21/19 carbamide peroxide [Debrox] 5 drp OTIC (EAR) BID 06/23/18 08/24/19 docusate sodium 100 mg PO BID 06/23/18 12/21/19 lidocaine [Lidoderm] 5 patch TRANSDERMAL DAILY 06/23/18 12/21/19 melatonin 3 mg PO PRN PRN 06/23/18 12/21/19 metformin 500 mg PO BID 06/23/18 12/21/19 multivitamin 1 tab PO DAILY 06/23/18 12/21/19 sennosides [senna] 8.6 mg PO BID 06/23/18 12/21/19 Florastor 250 mg PO BID #20 cap 06/16/19 08/24/19 calcium carbonate-vitamin D3 1 tab PO BID 06/16/19 12/21/19 [Calcium 500 With D] ferrous sulfate 324 mg PO DAILY 06/16/19 12/21/19 gabapentin 600 mg PO .QHS 06/16/19 12/21/19 levothyroxine 1 mcg PO DAILY 06/16/19 12/21/19 omeprazole 20 mg PO DAILY 06/16/19 12/21/19 polyethylene glycol 3350 [Miralax] 17 g PO .QHS 06/16/19 12/21/19 Renacidin 30 ml IRRIGATION DAILY 12/21/19 12/21/19 diclofenac sodium 2 g TOPICAL QID 12/21/19 12/21/19 amoxicillin-pot clavulanate 1 tab PO BID #7 tab 12/25/19 [Augmentin] clotrimazole 60 % TOPICAL TID #0 gm 12/25/19 gabapentin [Neurontin] 400 mg PO BID@0800,1400 #60 cap 12/25/19 magnesium oxide 800 mg PO BID #120 cap 12/25/19 vits A and D-white pet-lanolin 60 g TOPICAL TID #0 g 12/25/19 zinc oxide 60 g TOPICAL TID #0 g 12/25/19 Previous Rx's Medication Instructions Recorded Florastor 250 mg PO BID #20 cap 06/16/19 amoxicillin-pot clavulanate 1 tab PO BID #7 tab 12/25/19 [Augmentin] clotrimazole 60 % TOPICAL TID #0 gm 12/25/19 gabapentin [Neurontin] 400 mg PO BID@0800,1400 #60 cap 12/25/19 magnesium oxide 800 mg PO BID #120 cap 12/25/19 vits A and D-white pet-lanolin 60 g TOPICAL TID #0 g 12/25/19 zinc oxide 60 g TOPICAL TID #0 g 12/25/19 Allergies Allergy/AdvReac Type Severity Reaction Status Date / Time No Known Allergies Allergy Unverified 12/21/19 23:06 General Stated Complaint: Urinary BEVERLY: 4 Review of Systems All systems reviewed & are unremarkable except as noted in HPI and below Constitutional Constitutional: Denies chills, Denies fever(s) and Denies weakness Cardiovascular Cardiovascular: Denies chest pain and Denies dyspnea Respiratory Respiratory: Denies cough and Denies dyspnea Gastrointestinal Gastrointestinal: Denies abdominal pain, Denies nausea and Denies vomiting Musculoskeletal Musculoskeletal: Denies joint swelling Neurologic Neurologic: Denies weakness Psychiatric Psychiatric: Denies depression [facility] Medical History (Updated 03/20/20 @ 14:10 by Orestes Rhoades MD) AAA (abdominal aortic aneurysm) (Chronic) Diabetes mellitus (Chronic) History of breast cancer (Acute) Hyperlipemia (Chronic) Interstitial lung disease (Acute) Intracranial aneurysm (Chronic) Neurogenic bladder (Chronic) Paraplegia (Chronic) Suprapubic catheter (Chronic) Surgical History (Updated 12/25/19 @ 10:49 by Lauren Curtis MD) Chronic suprapubic catheter (Chronic) H/O breast surgery (Acute) H/O cervical spine surgery (Acute) S/P cholecystectomy (Acute) Social History Smoking/Tobacco Use Status: Former Tobacco Use Drug use: Never Do you feel safe in your relationship?: Yes Exam Const General: no acute distress Orientation: alert HENMT Head: normal to inspection Ears: external ears normal General nose exam: external nose normal Mouth: moist mucous membranes Eyes General: appearance normal, both eyes and all related structures Neck Neck: normal visual inspection Resp Effort & Inspection: normal respiratory effort and able to speak in complete sentences Cardio Rate: regular rate Skin General skin exam: no rashes or lesions noted Neuro General: patient alert and patient oriented x3 Extrem General: normal to inspection Psych Mental Status: mental status grossly normal Course Vital Signs Vital signs: Vital Signs Temperature 36.5 C 03/20/20 14:02 Pulse 80 03/20/20 14:02 Respiratory Rate 16 03/20/20 14:02 Blood Pressure 100/47 L 03/20/20 14:02 Pulse Oximetry 95 03/20/20 14:02 Temperature 36.5 C 03/20/20 14:02 Temperature Source Skin 03/20/20 14:02 Pulse 80 03/20/20 14:02 Respiratory Rate 16 03/20/20 14:02 Respiratory Effort Non-Labored 03/20/20 14:02 Blood Pressure 100/47 L 03/20/20 14:02 Blood Pressure Position Supine 03/20/20 14:02 Pulse Oximetry 95 03/20/20 14:02 Oxygen Delivery Method Room Air 03/20/20 14:02 Oxygen Flow Rate 0 03/20/20 14:02 Pain Level 3 03/20/20 14:02
--- NOTE | 2020-03-20 14:17 | NUR.NOTE ---
Nursing Note: Referral faxed to [facility] Urology for follow up, patient wants to follow up here. Ashlee Newton
== END 2020-03-20 14:17 | disposition home or self-care (01) ==
LOC: ER 14:14
PROVIDERS: Emergency Provider Emergency Medicine; PCP Nurse Practitioner Family
DX: T83.031A Leakage of indwelling urethral catheter, initial encounter (principal); N31.9 Neuromuscular dysfunction of bladder, unspecified; G82.20 Paraplegia, unspecified; Z96.0 Presence of urogenital implants; E11.9 Type 2 diabetes mellitus without complications; Z79.84 Long term (current) use of oral hypoglycemic drugs
CPT/HCPCS: 51702; 99283

== ENCOUNTER 2020-03-26 04:16 | Emergency (ER) | payer MEDICARE, OTHER, MEDICAID, SELFPAY ==
[2020-03-26 04:24] VITALS: BP 167/85; PULSE 87; RESP 16; TEMP 36.3; O2SAT 94
--- NOTE | 2020-03-26 04:31 | ED.GENADUL_ITS ---
Discharge Plan Disposition Patient Disposition: HOME Condition: Stable Discharge Details Chief Complaint: Urinary Clinical Impression: Hematuria, Acute UTI Primary Care Provider: Jessica Ramos ED Provider: Orestes Rhoades [place] Meds and New Rx's Prescriptions: New levofloxacin 750 mg tablet 750 mg PO DAILY Qty: 5 RF: 0 Continued calcium carbonate-vitamin D3 [Calcium 500 With D] 500 mg(1,250mg) -400 unit Tablet 1 tab PO BID RF: 0 levothyroxine 125 mcg Tablet 125 mcg PO DAILY RF: 0 gabapentin 600 mg Tablet 600 mg PO QHS RF: 0 omeprazole 20 mg Capsule,Delayed Release(Dr/Ec) 20 mg PO DAILY RF: 0 Saccharomyces boulardii [Florastor] 250 mg capsule 250 mg PO BID Qty: 20 RF: 0 polyethylene glycol 3350 [Miralax] 17 gram Powder In Packet 17 g PO QHS RF: 0 diclofenac sodium 1 % gel 2 g TOPICAL QID RF: 0 Renacidin 1,980.6 mg-59.4 mg-980.4mg/30mL solution 30 ml irrigation DAILY RF: 0 zinc oxide 20 % Ointment 60 g topical TID Qty: 0 RF: 0 clotrimazole 1 % Cream 60 % topical TID Qty: 0 RF: 0 vits A and D-white pet-lanolin Ointment 60 g topical TID Qty: 0 RF: 0 magnesium oxide 400 mg Capsule 800 mg PO BID Qty: 120 RF: 0 multivitamin Tablet 1 tab PO DAILY RF: 0 metformin 500 mg Tablet 1,000 mg PO BID RF: 0 anastrozole 1 mg Tablet 1 mg PO DAILY RF: 0 sennosides [senna] 8.6 mg Tablet 8.6 mg PO DAILY RF: 0 atorvastatin 10 mg Tablet 10 mg PO HS RF: 0 melatonin 3 mg Tablet 3 mg PO PRN PRNRF: 0 aspirin 81 mg Tablet,Delayed Release (Dr/Ec) 81 mg PO DAILY RF: 0 acetaminophen 500 mg Tablet 1,000 mg PO TID RF: 0 baclofen 10 mg Tablet 20 mg PO BID RF: 0 lidocaine [Lidoderm] 5 % Adhesive Patch,Medicated 5 patch Transdermal DAILY RF: 0 carbamide peroxide [Debrox] 6.5 % Drops 5 drp otic (ear) BID PRNRF: 0 docusate sodium 100 mg Capsule 100 mg PO BID RF: 0 Santyl 250 unit/gram Ointment 1 applic Topical DIRECTED RF: 0 gabapentin [Neurontin] 400 mg capsule 400 mg PO BID RF: 0 Discharge Instructions Instructions: Urinary Tract Infection in Women (ED) Additional Instructions: follow up as scheduled with urology today if you feel more ill, have high fevers or persistent vomit return to the emergency department Medical Decision Making 79 yo female with paraplegia and chronic suprapubic catheter that had to be replaced here as they had trouble replacing it at home last week comes in with blood in the liu bag. Denies pain, fevers, chills, n/v. Does have blood tinged urine inthe liu bag but is draining well, hd stable and pleasant on exam. Suspect likely uti less likely as a result of traumatic insertion given a week ago it was replaced. Will obtain UA and monitor pt hemodynamically stable draining slightly pink urine. Sleeping on reassessment but awakens to voice and has no complaints. UA with leukocytes and moderate bacteria, suspect uti as cause of this. Will place on abx, she has f/u today with urology. Return precautions given Differential Diagnosis Differential Diagnosis: uti, cancer, traumatic insertion Lab Data Lab results reviewed: Yes I reviewed the patient's lab results. HPI General Mode of arrival: EMS . Date/Time Provider Initiated Documentation: 03/26/20 04:29 . Limitations to Documentation: no limitations . Information obtained by: patient . History of Present Illness 79 year old F presents to the emergency department with the chief complaint of blood in liu catheter bag, described as moderate, Patient started experiencing this hour(s) (3) and it has been constant. No relieving factors improve symptom(s), No exacerbating factors reported . Patient notes no other symptoms.. Related Data Home Medications Medication Instructions Recorded Confirmed Santyl 1 applic TOPICAL DIRECTED 06/23/18 03/26/20 acetaminophen 1,000 mg PO TID 06/23/18 03/26/20 anastrozole 1 mg PO DAILY 06/23/18 03/26/20 aspirin 81 mg PO DAILY 06/23/18 03/26/20 atorvastatin 10 mg PO HS 06/23/18 03/26/20 baclofen 20 mg PO BID 06/23/18 03/26/20 carbamide peroxide [Debrox] 5 drp OTIC (EAR) BID PRN 06/23/18 03/26/20 docusate sodium 100 mg PO BID 06/23/18 03/26/20 lidocaine [Lidoderm] 5 patch TRANSDERMAL DAILY 06/23/18 03/26/20 melatonin 3 mg PO PRN PRN 06/23/18 03/26/20 metformin 1,000 mg PO BID 06/23/18 03/26/20 multivitamin 1 tab PO DAILY 06/23/18 03/26/20 sennosides [senna] 8.6 mg PO DAILY 06/23/18 03/26/20 Saccharomyces boulardii [Florastor] 250 mg PO BID #20 cap 06/16/19 03/26/20 calcium carbonate-vitamin D3 1 tab PO BID 06/16/19 03/26/20 [Calcium 500 With D] gabapentin 600 mg PO QHS 06/16/19 03/26/20 levothyroxine 125 mcg PO DAILY 06/16/19 03/26/20 omeprazole 20 mg PO DAILY 06/16/19 03/26/20 polyethylene glycol 3350 [Miralax] 17 g PO QHS 06/16/19 03/26/20 Renacidin 30 ml IRRIGATION DAILY 12/21/19 03/26/20 diclofenac sodium 2 g TOPICAL QID 12/21/19 03/20/20 clotrimazole 60 % TOPICAL TID #0 gm 12/25/19 03/26/20 magnesium oxide 800 mg PO BID #120 cap 12/25/19 03/26/20 vits A and D-white pet-lanolin 60 g TOPICAL TID #0 g 12/25/19 03/26/20 zinc oxide 60 g TOPICAL TID #0 g 12/25/19 03/26/20 gabapentin [Neurontin] 400 mg PO BID 03/26/20 03/26/20 levofloxacin 750 mg PO DAILY #5 tab 03/26/20 Previous Rx's Medication Instructions Recorded Saccharomyces boulardii [Florastor] 250 mg PO BID #20 cap 06/16/19 clotrimazole 60 % TOPICAL TID #0 gm 12/25/19 magnesium oxide 800 mg PO BID #120 cap 12/25/19 vits A and D-white pet-lanolin 60 g TOPICAL TID #0 g 12/25/19 zinc oxide 60 g TOPICAL TID #0 g 12/25/19 levofloxacin 750 mg PO DAILY #5 tab 03/26/20 Allergies Allergy/AdvReac Type Severity Reaction Status Date / Time No Known Allergies Allergy Unverified 12/21/19 23:06 General Stated Complaint: Urinary BEVERLY: 3 Review of Systems All systems reviewed & are unremarkable except as noted in HPI and below Constitutional Constitutional: Denies chills and Denies fever(s) ENT Ears, Nose, Mouth, and Throat: Denies change in voice Cardiovascular Cardiovascular: Denies chest pain and Denies dyspnea Respiratory Respiratory: Denies cough and Denies dyspnea Gastrointestinal Gastrointestinal: Denies abdominal pain, Denies nausea and Denies vomiting Musculoskeletal Musculoskeletal: Denies joint swelling Endocrine Endocrine: Denies heat intolerance Allergic/Immunologic Allergic/Immunologic: Denies urticaria [facility] Medical History (Updated 03/26/20 @ 06:00 by Orestes Rhoades MD) AAA (abdominal aortic aneurysm) (Chronic) Diabetes mellitus (Chronic) History of breast cancer (Acute) Hyperlipemia (Chronic) Interstitial lung disease (Acute) Intracranial aneurysm (Chronic) Neurogenic bladder (Chronic) Paraplegia (Chronic) Suprapubic catheter (Chronic) Surgical History (Updated 12/25/19 @ 10:49 by Lauren Curtis MD) Chronic suprapubic catheter (Chronic) H/O breast surgery (Acute) H/O cervical spine surgery (Acute) S/P cholecystectomy (Acute) Social History Smoking/Tobacco Use Status: Former Tobacco Use Alcohol Intake: never Drug use: Never Substance use type: does not use Do you feel safe at home: Yes Do you feel safe in your relationship?: Yes Exam Const General: no acute distress Orientation: alert HENVA Head: normal to inspection Ears: external ears normal General nose exam: external nose normal Mouth: moist mucous membranes Eyes General: appearance normal, both eyes and all related structures Neck Neck: normal visual inspection Resp Effort & Inspection: normal respiratory effort and able to speak in complete sentences Cardio Rate: regular rate Skin General skin exam: no petechiae Neuro General: patient alert and patient oriented x3 Extrem General: normal to inspection Psych Mental Status: mental status grossly normal Course Vital Signs Vital signs: Vital Signs Temperature 36.3 C L 03/26/20 04:24 Pulse 87 03/26/20 04:24 Respiratory Rate 16 03/26/20 04:24 Blood Pressure 167/85 H 03/26/20 04:24 Pulse Oximetry 94 L 03/26/20 04:24 Temperature 36.3 C L 03/26/20 04:24 Temperature Source Skin 03/26/20 04:24 Pulse 87 03/26/20 04:24 Respiratory Rate 16 03/26/20 04:24 Blood Pressure 167/85 H 03/26/20 04:24 Blood Pressure Position Supine 03/26/20 04:24 Pulse Oximetry 94 L 03/26/20 04:24 Oxygen Delivery Method Room Air 03/26/20 04:24 Oxygen Flow Rate 0 03/26/20 04:24
--- NOTE | 2020-03-26 04:53 | NUR.NOTE ---
[place] bag/tubing with clots removed. New bag attached, clamped to obtain sample. Pt unable to use call light, door/curtain left open.
[2020-03-26 05:48] LABS: Bilirubin Negative (Negative); Blood Large (Negative); Clarity Clear (Clear); Glucose Negative (Negative); Ketones Negative (Negative); Leukocyte Esterase Small (Negative); Nitrite Negative (Negative); Specific Gravity 1.015 (1.005-1.025); Urobilinogen 0.2 EU/dL (Up TO 0.2)
[2020-03-26 05:55] LABS: WBC 0-2 HPF (0-5)
[2020-03-26 05:56] LABS: Bacteria Moderate HPF (Negative); C & S Indicated? C&S Done As Ordered; Casts Negative LPF (Negative); Crystals Negative HPF (Negative); Epithelial Cells Rare HPF (Negative); Mucus Negative (Negative)
[2020-03-26 06:02] VITALS: BP 138/67; PULSE 75; RESP 16; TEMP 36.4; O2SAT 95
[2020-03-26] MEDS: levoFLOXacin 500 MG, levoFLOXacin 250 MG 750 MG PO (06:04)
--- NOTE | 2020-03-26 06:12 | NUR.NOTE ---
18fr suprapubic tube with 10mL balloon continues to drain yellow urine, small clots noted x 2, passed through tubing. no leaking from suprapubic sight. [facility] arrive to transport pt home. Spoke with pt caregiver Kinjal per pt request to inform of plan for transport home and UTI dx. Aware that catheter bag changed, catheter was not changed. Kinjal states she is unsure why pt would be coming home with hematuria, discussed occurrence of hematuria with UTI, informed her that catheter is draining, small clots are passing easily. Pt to keep appt with urology this afternoon.
== END 2020-03-26 06:15 | disposition home or self-care (01) ==
PROVIDERS: Emergency Provider Emergency Medicine; PCP Nurse Practitioner Family
DX: N31.8 Other neuromuscular dysfunction of bladder (principal); N39.0 Urinary tract infection, site not specified; E11.9 Type 2 diabetes mellitus without complications; R31.9 Hematuria, unspecified; G82.20 Paraplegia, unspecified; Z96.0 Presence of urogenital implants; Z79.84 Long term (current) use of oral hypoglycemic drugs
CPT/HCPCS: 99213; 99283; 81003; 81015; 87086

== ENCOUNTER → 2020-04-20 16:06 | Outpatient (BNVA) | payer MEDICARE, OTHER, MEDICAID, SELFPAY | PROVIDERS: PCP Nurse Practitioner Family; Referring Provider Nurse Practitioner Family; Visit Provider Urology | DX: N31.8 Other neuromuscular dysfunction of bladder (principal); G82.20 Paraplegia, unspecified; E11.9 Type 2 diabetes mellitus without complications; Z93.59 Other cystostomy status | CPT/HCPCS: 51705; 99213 ==

== ENCOUNTER → 2020-05-23 13:27 | Outpatient (BNVA) | payer MEDICARE, OTHER, MEDICAID, SELFPAY | PROVIDERS: PCP Nurse Practitioner Family; Referring Provider Nurse Practitioner Family; Visit Provider Nurse Practitioner Gerontology | DX: N32.89 Other specified disorders of bladder (principal); N31.9 Neuromuscular dysfunction of bladder, unspecified; Z93.59 Other cystostomy status; E11.9 Type 2 diabetes mellitus without complications | CPT/HCPCS: 99212; 99442 ==

== ENCOUNTER → 2020-10-09 14:00 | Outpatient (BNVA) | payer MEDICARE, OTHER, MEDICAID, SELFPAY | PROVIDERS: PCP Nurse Practitioner Family; Referring Provider Nurse Practitioner Family; Visit Provider Nurse Practitioner Gerontology | DX: N31.9 Neuromuscular dysfunction of bladder, unspecified (principal); N32.89 Other specified disorders of bladder; Z93.59 Other cystostomy status | CPT/HCPCS: 99442 ==

== ENCOUNTER → 2020-12-25 14:35 | Outpatient (BNVA) | payer MEDICARE, OTHER, MEDICAID, SELFPAY | PROVIDERS: PCP Nurse Practitioner Family; Referring Provider Nurse Practitioner Family; Visit Provider Nurse Practitioner Gerontology | DX: N32.89 Other specified disorders of bladder (principal) ==

== ENCOUNTER → 2020-12-27 10:53 | Outpatient (BNVA) | payer MEDICARE, OTHER, MEDICAID, SELFPAY | PROVIDERS: PCP Nurse Practitioner Family; Referring Provider Nurse Practitioner Family; Visit Provider Nurse Practitioner Gerontology | DX: N32.89 Other specified disorders of bladder (principal) | CPT/HCPCS: 99442 ==

== ENCOUNTER 2021-01-05 11:50 | Emergency (ER) | payer MEDICARE, OTHER, MEDICAID, SELFPAY ==
[2021-01-05] VITALS (15 sets, daily range): BP systolic 132–160; BP diastolic 59–102; PULSE 74–88; RESP 15–28; TEMP 37.2; O2SAT 91–94
--- NOTE | 2021-01-05 11:42 | W.ED.GENAD ---
Discharge Plan Disposition Patient Disposition: HOME Condition: Stable Discharge Details Clinical Impression: UTI (urinary tract infection), Transaminitis Primary Care Provider: Jessica Ramos ED Provider: Rosana Billingsley [place] Meds and New Rx's Prescriptions: New levofloxacin 750 mg tablet 750 mg PO DAILY Qty: 3 RF: 0 Continued acetic acid 0.25 % solution 50 ml IR DAILY Qty: 36270 RF: 12 Myrbetriq 25 mg tablet extended release 24 hr 25 mg PO DAILY Qty: 90 RF: 3 calcium carbonate-vitamin D3 [Calcium 500 With D] 500 mg(1,250mg) -400 unit Tablet 1 tab PO BID RF: 0 levothyroxine 125 mcg Tablet 25 mcg PO DAILY RF: 0 gabapentin 600 mg Tablet 600 mg PO TID RF: 0 omeprazole 20 mg Capsule,Delayed Release(Dr/Ec) 20 mg PO DAILY RF: 0 Saccharomyces boulardii [Florastor] 250 mg capsule 250 mg PO BID Qty: 20 RF: 0 polyethylene glycol 3350 [Miralax] 17 gram Powder In Packet 17 g PO QHS RF: 0 diclofenac sodium 1 % gel 2 g TOPICAL QID RF: 0 Renacidin 1,980.6 mg-59.4 mg-980.4mg/30mL solution 30 ml irrigation DAILY RF: 0 zinc oxide 20 % Ointment 60 g topical TID Qty: 0 RF: 0 clotrimazole 1 % Cream 60 % topical TID Qty: 0 RF: 0 vits A and D-white pet-lanolin Ointment 60 g topical TID Qty: 0 RF: 0 magnesium oxide 400 mg Capsule 800 mg PO BID Qty: 120 RF: 0 multivitamin Tablet 1 tab PO DAILY RF: 0 metformin 500 mg Tablet 1,000 mg PO BID RF: 0 anastrozole 1 mg Tablet 1 mg PO DAILY RF: 0 sennosides [senna] 8.6 mg Tablet 8.6 mg PO DAILY RF: 0 atorvastatin 10 mg Tablet 10 mg PO HS RF: 0 melatonin 3 mg Tablet 3 mg PO PRN PRNRF: 0 aspirin 81 mg Tablet,Delayed Release (Dr/Ec) 81 mg PO DAILY RF: 0 acetaminophen 500 mg Tablet 1,000 mg PO TID RF: 0 baclofen 10 mg Tablet 20 mg PO BID RF: 0 lidocaine [Lidoderm] 5 % Adhesive Patch,Medicated 5 patch Transdermal DAILY RF: 0 carbamide peroxide [Debrox] 6.5 % Drops 5 drp otic (ear) BID PRNRF: 0 docusate sodium 100 mg Capsule 100 mg PO BID RF: 0 Santyl 250 unit/gram Ointment 1 applic Topical DIRECTED RF: 0 gabapentin [Neurontin] 400 mg capsule 400 mg PO BID RF: 0 levofloxacin 750 mg tablet 750 mg PO DAILY Qty: 5 RF: 0 Discharge Instructions Instructions: Levofloxacin (By mouth), Urinary Tract Infection in Women (ED) Additional Instructions: There is concern for urinary tract infection. You are given your first dose of antibiotics here today. Your second dose will be due tomorrow afternoon. Please encourage water intake. Please continue to monitor your symptoms. If you are noted to have a fever on your skin, please recheck this orally. Please follow-up with primary care provider next week for reevaluation. If you are unable to stay hydrated, cannot tolerate antibiotics, develop fevers, vomiting or other new/worsening symptoms please seek care urgently once again. Referrals: Jessica Ramos [Primary Care Provider] - Discharge Data Discharge Date/Time-TO BE ENTERED AT DEPARTURE: 01/05/21 14:41 Medical Decision Making Patient is a pleasant 80 year old female, brought in via EMS, with concern for fever. She states that her home health staff checked a temporal temperature and found her to have a T max of 100*F. She has temperature checked routinely and denies having felt febrile. She denies chills. Has chronic pain in her BUE but no change in this. No rash noted. Denies URI symptoms, cough, N/V/D. Millie has indwelling catheter and chronic UTI. Is concerned that this has increased and she is becoming sick from this once again. She states that she had catheter changed yesterday. No change in appetite. PMH signficant for chronic suprapubic catheter, toxic metabolic encephalopathy, intracranial aneurysm, AAA, DM, neurogenic bladder, paraplegia. On exam, patient appears nontoxic. She is afebrile. She appears chronically will with no mobility of BLE and limited ROM of BUE. No skin break down. Lungs clear. Normal HEENT exam. Abdomen benign. Urine from catheter appears clear. With luisa patients comorbidities and limited sensation, as well as her hx of sepsis, concerned she may be developing infection that is currently not detected by patient. Will obtain labs, CXR and UA. Discussed plan with patient and , they are in agreement with this plan. Labs reviewed, no leukocytosis, stable H&H. Lactate WNL. CMP without acute signifcant abnormality. LFTs slightly elevated but these have been elevated historically. UA signficant for moderate leukocyte esterase, few bacteria. Discussed with patient and . Reviewed notes from urology. They have been hesitent to give abx for positive UA without other symptoms as the patient appears to have chronic colonization. However, witht eh concern for possible fever at home, I feel that abx are appropriate. I do not see evidence of septicemia. Patient is hemodynamically stable. She would prefer outpatient management and I agree with this plan. Return precautions discussed at length. They will f/u with PCP and urology. All of their questions and concerns were addressed, they are in agreement with this plan. Patient transferred home via EMS as she is unable to tolerate seated position for that length of time. HPI General Mode of arrival: EMS. Date/Time Provider Initiated Documentation: 01/05/21 11:51. Limitations to Documentation: no limitations. Information obtained by: patient, EMS, RN notes reviewed and old records reviewed. History of Present Illness 80 year old F presents to the emergency department with the chief complaint of fever, described as moderate, Quality is described as other (denies any acute pain), Patient started experiencing this day(s) (1) and it has been intermittent and now resolved. No relieving factors improve symptom(s), No exacerbating factors reported . Patient notes no other symptoms.. Patient did receive the following treatments prior to arrival, none Related Data Home Medications Medication Instructions Recorded Confirmed Santyl 1 applic TOPICAL DIRECTED 06/23/18 12/27/20 acetaminophen 1,000 mg PO TID 06/23/18 01/05/21 anastrozole 1 mg PO DAILY 06/23/18 01/05/21 aspirin 81 mg PO DAILY 06/23/18 01/05/21 atorvastatin 10 mg PO HS 06/23/18 01/05/21 baclofen 20 mg PO BID 06/23/18 01/05/21 carbamide peroxide [Debrox] 5 drp OTIC (EAR) BID PRN 06/23/18 01/05/21 docusate sodium 100 mg PO BID 06/23/18 12/27/20 lidocaine [Lidoderm] 5 patch TRANSDERMAL DAILY 06/23/18 12/27/20 melatonin 3 mg PO PRN PRN 06/23/18 12/27/20 metformin 1,000 mg PO BID 06/23/18 01/05/21 multivitamin 1 tab PO DAILY 06/23/18 01/05/21 sennosides [senna] 8.6 mg PO DAILY 06/23/18 01/05/21 Saccharomyces boulardii [Florastor] 250 mg PO BID #20 cap 06/16/19 12/27/20 calcium carbonate-vitamin D3 1 tab PO BID 06/16/19 01/05/21 [Calcium 500 With D] gabapentin 600 mg PO TID 06/16/19 01/05/21 levothyroxine 25 mcg PO DAILY 06/16/19 12/27/20 omeprazole 20 mg PO DAILY 06/16/19 01/05/21 polyethylene glycol 3350 [Miralax] 17 g PO QHS 06/16/19 01/05/21 Renacidin 30 ml IRRIGATION DAILY 12/21/19 12/27/20 diclofenac sodium 2 g TOPICAL QID 12/21/19 01/05/21 clotrimazole 60 % TOPICAL TID #0 gm 12/25/19 12/27/20 magnesium oxide 800 mg PO BID #120 cap 12/25/19 01/05/21 vits A and D-white pet-lanolin 60 g TOPICAL TID #0 g 12/25/19 01/05/21 zinc oxide 60 g TOPICAL TID #0 g 12/25/19 01/05/21 gabapentin [Neurontin] 400 mg PO BID 03/26/20 12/27/20 levofloxacin 750 mg PO DAILY #5 tab 03/26/20 12/27/20 acetic acid 0.25 % irrigation 50 ml IR DAILY #96583 ml 04/21/20 01/05/21 solution mirabegron 25 mg tablet,extended 25 mg PO DAILY #90 tab 07/30/20 01/05/21 release 24 hr levofloxacin 750 mg PO DAILY #3 tab 01/05/21 Previous Rx's Medication Instructions Recorded Saccharomyces boulardii [Florastor] 250 mg PO BID #20 cap 06/16/19 clotrimazole 60 % TOPICAL TID #0 gm 12/25/19 magnesium oxide 800 mg PO BID #120 cap 12/25/19 vits A and D-white pet-lanolin 60 g TOPICAL TID #0 g 12/25/19 zinc oxide 60 g TOPICAL TID #0 g 12/25/19 levofloxacin 750 mg PO DAILY #5 tab 03/26/20 acetic acid 0.25 % irrigation 50 ml IR DAILY #37210 ml 04/21/20 solution mirabegron 25 mg tablet,extended 25 mg PO DAILY #90 tab 07/30/20 release 24 hr levofloxacin 750 mg PO DAILY #3 tab 01/05/21 Allergies Allergy/AdvReac Type Severity Reaction Status Date / Time ibuprofen AdvReac Mild Nausea Unverified 01/05/21 12:00 General BEVERLY: 3 Review of Systems Constitutional Constitutional: Reports as per HPI, Denies chills, Denies fatigue, Reports fever(s) (denies feeling feverish, states this was a routine check), Denies headache(s) and Denies poor appetite ENT Ears, Nose, Mouth, and Throat: Denies dental pain, Denies otalgia, Denies headache(s), Denies sinus pain and Denies sore throat Cardiovascular Cardiovascular: Denies chest pain and Denies dyspnea Respiratory Respiratory: Denies chest congestion, Denies cough and Denies dyspnea Gastrointestinal Gastrointestinal: Denies abdominal pain, Denies change in bowel habits, Denies nausea and Denies vomiting Genitourinary Genitourinary: Reports as per HPI (has suprapubic cath and chronic UTI) Musculoskeletal Musculoskeletal: Reports as per HPI and Denies back pain Integumentary/Breasts Skin/Breast: Reports as per HPI and Denies rash Neurologic Neurologic: Denies headache(s) Endocrine Endocrine: Denies fatigue [facility] Medical History (Updated 01/05/21 @ 14:10 by KAJAL Gavin) AAA (abdominal aortic aneurysm) Diabetes mellitus History of breast cancer Hyperlipemia Interstitial lung disease Intracranial aneurysm Neurogenic bladder Paraplegia Suprapubic catheter Surgical History Chronic suprapubic catheter H/O breast surgery H/O cervical spine surgery S/P cholecystectomy Social History Smoking/Tobacco Use Status: Former Tobacco Use Smoking risk assessment performed?: Yes Alcohol Intake: never Drug use: Never Substance use type: does not use Do you feel safe at home: Yes Do you feel safe in your relationship?: Yes Exam Const General: cooperative, comfortable, no acute distress, well developed, well groomed and ill appearing chronically Nutritional Appearance: well nourished and overweight Orientation: alert and awake [facility] Head: normal to inspection Ears: hearing grossly normal bilaterally, external ears normal and TM's normal bilaterally Face and sinus: normal facial exam Mouth: oral mucosae normal, lip normal and tongue normal Throat: posterior oropharynx normal, tonsils normal and uvula midline Resp Effort & Inspection: normal respiratory effort and no respiratory distress Auscultation: clear to auscultation bilaterally, no rales, no rhonchi and no wheezes Cardio Rate: regular rate Rhythm: regular rhythm Heart Sounds: S1 normal and S2 normal GI Inspection: normal to inspection Palpation: soft, no hepatosplenomegaly, not firm, no guarding, not rigid and nontender (patietn has limited sensation ) Rectal Exam - female: visual inspection normal (non-thrombosed hemorrhoid noted, no skin breakdown) Back/Spine/Pelvis Thoracic/Lumbar Spine: thoracic and lumbar spine normal to inspection Sacrum: no erythema, no swelling, no tenderness and other (no skin breakdown) Skin General skin exam: no rashes or lesions noted Trauma: no lacerations or abrasions Neuro General: patient alert and patient awake Cognition: normal cognition Speech: speech normal Gait: gait abnormal (paraplegic, limited use of upper extremities) Psych Appearance: grossly normal and well kempt Mental Status: mental status grossly normal Speech and Movement: speech and movement normal
[2021-01-05 12:42] LABS: Lactate 1.3 mmol/L (0.6-1.4)
[2021-01-05 12:46] LABS: Abs Immature Grans 0.05 10^3/uL (0.0-0.06); Absolute Basophil Count 0.05 10^3/uL (0.0-0.2); Absolute Eosinophil Count 0.13 10^3/uL (0.0-0.7); Absolute Lymphocyte Count 3.27 10^3/uL (1.2-3.4); Absolute Monocyte Count 0.53 10^3/uL (0.1-0.8); Absolute Neutrophil Count 4.74 10^3/uL (1.2-6.7); Basophils % 0.6; Eosinophils % 1.5; HCT 35.4 % (36.0-46.0); HGB 11.7 g/dL (11.2-15.7); Immature Grans % 0.6; Lymphocytes % 37.3; MCH 32.6 pg (27.0-33.0); MCHC 33.1 % (32.0-36.0); MCV 98.6 fL (80-95); MPV 9.9 fL (8.0-11.0); Nucleated RBC 0 %; Platelet Count 186 10^3/uL (130-400); RBC 3.59 10^6/uL (3.93-5.22); RDW 12.4 % (11.7-14.6); RDW-SD 44.9 fL; WBC 8.77 10^3/uL (4.4-10.8)
[2021-01-05 12:52] LABS: Bilirubin Negative (Negative); Blood Negative (Negative); Clarity Clear (Clear); Glucose Negative (Negative); Ketones Negative (Negative); Leukocyte Esterase Moderate (Negative); Nitrite Negative (Negative); Specific Gravity 1.015 (1.005-1.025); Urobilinogen 0.2 EU/dL (Up TO 0.2); pH 7.5 (5-8)
[2021-01-05 12:59] LABS: ALT 80 U/L (14-59); AST 51 U/L (15-37); Albumin 3.4 g/dL (3.4-5.0); Alkaline Phosphatase 66 U/L (46-116); Anion Gap 7.9 mmol/L (3-11); BUN 12 mg/dL (7-18); Bilirubin, Total 0.5 mg/dL (0.2-1.0); CO2 28.1 mmol/L (21.0-32.0); CREATININE 0.8 mg/dL (0.55-1.02); Chloride 99 mmol/L (98-107); Glucose 134 mg/dL (74-106); Potassium 4.6 mmol/L (3.5-5.1); Sodium 135 mmol/L (136-145); Total Protein 7.8 g/dL (6.4-8.2)
--- NOTE | 2021-01-05 13:00 | DI.RAD_ITS ---
Exam(s) XR PORTABLE CHEST AP EXAM: XR PORTABLE CHEST AP CLINICAL HISTORY: fever TECHNIQUE: COMPARISON: CR,XR XR PORTABLE CHEST AP from 12/22/2019 FINDINGS: Portable semi upright chest at 1325 hours. Cardiac size is within normal limits. Pulmonary intersti tial changes again noted, presumably chronic, no evidence of acute focal consolidation. No pleural e ffusion on this frontal film. IMPRESSION: No evidence of acute process. RADIATION DOSE DELIVERED: Total DLP
[2021-01-05 13:03] LABS: Bacteria Few HPF (Negative); C & S Indicated? Yes; Casts Negative LPF (Negative); Crystals Negative HPF (Negative); Epithelial Cells Negative HPF (Negative); Mucus Negative (Negative); Other Cells Few Renal (Negative); WBC 20-50 HPF (0-5)
[2021-01-05] MEDS: Lactated Ringers 1,000 ML 1000 ML IV (13:16)
[2021-01-05] MEDS: levoFLOXacin 500 MG, levoFLOXacin 250 MG 750 MG PO (14:07)
--- NOTE | 2021-01-05 14:27 | DI.VRAD_ITS ---
PROCEDURE INFORMATION: Exam: XR Chest Exam date and time: 01/05/2021 1:14 PM Age: 80 years old Clinical indication: Fever TECHNIQUE: Imaging protocol: XR of the chest. Views: 1 view. COMPARISON: XR PORTABLE CHEST AP 12/22/2019 5:36 PM FINDINGS: Lungs: Bilateral hazy interstitial pulmonary opacities are unchanged. No new pulmonary consolidation is seen. Pleural spaces: Unremarkable. No pleural effusion. No pneumothorax. Heart/Mediastinum: Unremarkable. No cardiomegaly. Bones/joints: The patient has undergone extensive cervical spine fusion surgery. IMPRESSION: No significant change in bilateral hazy interstitial pulmonary infiltrates. Dictated and Authenticated by: Jose Puri MD. Ordering:KATHLEEN Wayne MD
[2021-01-05] MEDS: levoFLOXacin 500 MG TAB (14:45)
[2021-01-05] MEDS: levoFLOXacin 250 MG TAB (14:46)
== END 2021-01-05 14:41 | disposition home or self-care (01) ==
PROVIDERS: Emergency Provider Physician Assistant; PCP Nurse Practitioner Family
DX: N39.0 Urinary tract infection, site not specified (principal); R74.01 Elevation of levels of liver transaminase levels
CPT/HCPCS: 36415; 80053; 87040; 96360; 99284; 71045; 81003; 81015; 83605; 85025; 87086; 99283

== ENCOUNTER → 2021-06-25 14:32 | Outpatient (BNVA) | payer MEDICARE, OTHER, MEDICAID, SELFPAY | PROVIDERS: PCP Nurse Practitioner Family; Referring Provider Nurse Practitioner Family; Visit Provider Nurse Practitioner Gerontology | DX: N32.89 Other specified disorders of bladder (principal); N31.9 Neuromuscular dysfunction of bladder, unspecified; Z79.899 Other long term (current) drug therapy | CPT/HCPCS: 99214 ==

== ENCOUNTER 2021-08-19 19:13 | Emergency (ER) | payer MEDICARE, OTHER, MEDICAID, SELFPAY ==
[2021-08-19 19:26] VITALS: BP 156/89; PULSE 82; RESP 18; TEMP 36.5; O2SAT 98
--- NOTE | 2021-08-19 19:28 | ED.GENADUL_ITS ---
Discharge Plan Disposition Patient Disposition: HOME Condition: Improving Discharge Details Clinical Impression: Suprapubic catheter dysfunction Primary Care Provider: Jessica Ramos ED Provider: Ramy Redman Home Meds and New Rx's Prescriptions: Continued naltrexone 50 mg tablet 50 mg PO DAILY RF: 0 Myrbetriq 25 mg tablet extended release 24 hr 25 mg PO DAILY Qty: 90 RF: 3 acetic acid 0.25 % solution 50 ml IR DAILY Qty: 55261 RF: 12 calcium carbonate-vitamin D3 [Calcium 500 With D] 500 mg(1,250mg) -400 unit Tablet 1 tab PO BID RF: 0 levothyroxine 125 mcg Tablet 25 mcg PO DAILY RF: 0 gabapentin 600 mg Tablet 600 mg PO TID RF: 0 omeprazole 20 mg Capsule,Delayed Release(Dr/Ec) 20 mg PO DAILY RF: 0 Saccharomyces boulardii [Florastor] 250 mg capsule 250 mg PO BID Qty: 20 RF: 0 polyethylene glycol 3350 [Miralax] 17 gram Powder In Packet 17 g PO QHS RF: 0 diclofenac sodium 1 % gel 2 g TOPICAL QID RF: 0 Renacidin 1,980.6 mg-59.4 mg-980.4mg/30mL solution 30 ml irrigation DAILY RF: 0 zinc oxide 20 % Ointment 60 g topical TID Qty: 0 RF: 0 clotrimazole 1 % Cream 60 % topical TID Qty: 0 RF: 0 vits A and D-white pet-lanolin Ointment 60 g topical TID Qty: 0 RF: 0 magnesium oxide 400 mg Capsule 800 mg PO BID Qty: 120 RF: 0 multivitamin Tablet 1 tab PO DAILY RF: 0 metformin 500 mg Tablet 1,000 mg PO BID RF: 0 anastrozole 1 mg Tablet 1 mg PO DAILY RF: 0 sennosides [senna] 8.6 mg Tablet 8.6 mg PO DAILY RF: 0 atorvastatin 10 mg Tablet 10 mg PO HS RF: 0 melatonin 3 mg Tablet 3 mg PO PRN PRNRF: 0 aspirin 81 mg Tablet,Delayed Release (Dr/Ec) 81 mg PO DAILY RF: 0 acetaminophen 500 mg Tablet 1,000 mg PO TID RF: 0 baclofen 10 mg Tablet 20 mg PO BID RF: 0 lidocaine [Lidoderm] 5 % Adhesive Patch,Medicated 5 patch Transdermal DAILY RF: 0 carbamide peroxide [Debrox] 6.5 % Drops 5 drp otic (ear) BID PRNRF: 0 docusate sodium 100 mg Capsule 100 mg PO BID RF: 0 Santyl 250 unit/gram Ointment 1 applic Topical DIRECTED RF: 0 gabapentin [Neurontin] 400 mg capsule 400 mg PO BID RF: 0 levofloxacin 750 mg tablet 750 mg PO DAILY Qty: 5 RF: 0 levofloxacin 750 mg tablet 750 mg PO DAILY Qty: 3 RF: 0 Discharge Instructions Instructions: How to Care for Your Suprapubic Catheter (DC) Additional Instructions: Suprapubic catheter was changed without any difficulty. Your urinalysis is pending. If urinalysis is positive I will contact you and initiate antibiotic therapy. Otherwise please watch for new or worsening symptoms and return to the ER for any concerns. Please contact your primary provider and urology team tomorrow to discuss your visit need for outpatient Medical Decision Making 81-year-old female presents for for suprapubic catheter placement. Home health typically replaces it once a month, today decreased output and they were unable to flush the catheter. They removed the catheter in order to replace the catheter and unfortunately they were unsuccessful. She presents with a 18 [place] catheter antimicrobial which they typically insert. This has greatly decreased her overall UTIs. Patient otherwise has no additional concerns or c omplaints. Denies fever or vomiting. She appears well, nontoxic. I was able to insert the suprapubic catheter without difficulty. 150 cc of slightly yellow-clear urine drained without any evidence of chet hematuria. Will send urine for urinalysis Urine reveals large blood, this may be secondary to the traumatic attempt earlier today. Negative nitrate, small leuk esterase with greater than 50 red cells and 5-10 white cells. No clear evidence of infection, will not initiate any antibiotic therapy. Patient has no additional questions or concerns and is requesting discharge home. I was able to speak with her [facility] to make them aware of her ER visit and that she will be transported home. Strict discharge and return precautions provided. This documentation was generated using [employer] system, please disregard any oddities of phrase or misspellings. Medical Records Medical records reviewed: Yes I reviewed the patient's medical records. Lab Data Lab results reviewed: Yes I reviewed the patient's lab results. Labs: Laboratory Tests Range/Units 08/19/21 20:20 Urine Color (Yellow) Yellow Urine Clarity (Clear) Clear Urine pH (5-8) 6.0 Ur Specific [place] (1.005-1.025) 1.015 Urine Protein (Negative) mg/dL 100 H Urine Ketones (Negative) mg/dL Negative Urine Blood (Negative) Large H Urine Nitrite (Negative) Negative Urine Bilirubin (Negative) Negative Urine Urobilinogen (Up TO 0.2) EU/dL 0.2 Ur Leukocyte Esterase (Negative) Small H Urine RBC (0-2) HPF >50 H Urine WBC (0-5) HPF 5-10 Ur Epithelial Cells (Negative) HPF Rare Urine Crystals (Negative) HPF Negative Urine Bacteria (Negative) HPF Rare Urine Casts (Negative) LPF Negative Urine Mucus (Negative) Trace Ur Culture Indicated? No Urine Glucose (Negative) mg/dL Negative HPI General Mode of arrival: EMS . Date/Time Provider Initiated Documentation: 08/19/21 19:18 . Limitations to Documentation: no limitations . Information obtained by: patient and EMS . HPI Narrative: This is an 81-year-old female, past medical history that includes diabetes paraplegia, neurogenic bladder, intracranial aneurysm, hyperlipidemia, chronic indwelling suprapubic catheter, presenting via EMS because of suprapubic catheter malfunction. Around 3:00 this afternoon they noticed the catheter had decreased output. Home nursing attempted to flush the catheter but was unsuccessful. Subsequently they tried changing the catheter, removed the catheter and they were unable to replace a new catheter. We were informed that the insertion at home may have been slightly traumatic. Patient has no other acute concerns or complaints. Denies fever. Denies hematuria. Limited HPI as the patient has paraplegia and has no sensation, therefore cannot tell me if she has any pain or discomfort Related Data Home Medications Medication Instructions Recorded Confirmed Santyl 1 applic TOPICAL DIRECTED 06/23/18 12/27/20 acetaminophen 1,000 mg PO TID 06/23/18 01/05/21 anastrozole 1 mg PO DAILY 06/23/18 01/05/21 aspirin 81 mg PO DAILY 06/23/18 01/05/21 atorvastatin 10 mg PO HS 06/23/18 01/05/21 baclofen 20 mg PO BID 06/23/18 01/05/21 carbamide peroxide [Debrox] 5 drp OTIC (EAR) BID PRN 06/23/18 01/05/21 docusate sodium 100 mg PO BID 06/23/18 12/27/20 lidocaine [Lidoderm] 5 patch TRANSDERMAL DAILY 06/23/18 12/27/20 melatonin 3 mg PO PRN PRN 06/23/18 12/27/20 metformin 1,000 mg PO BID 06/23/18 01/05/21 multivitamin 1 tab PO DAILY 06/23/18 01/05/21 sennosides [senna] 8.6 mg PO DAILY 06/23/18 01/05/21 Saccharomyces boulardii [Florastor] 250 mg PO BID #20 cap 06/16/19 12/27/20 calcium carbonate-vitamin D3 1 tab PO BID 06/16/19 01/05/21 [Calcium 500 With D] gabapentin 600 mg PO TID 06/16/19 01/05/21 levothyroxine 25 mcg PO DAILY 06/16/19 12/27/20 omeprazole 20 mg PO DAILY 06/16/19 01/05/21 polyethylene glycol 3350 [Miralax] 17 g PO QHS 06/16/19 01/05/21 Renacidin 30 ml IRRIGATION DAILY 12/21/19 12/27/20 diclofenac sodium 2 g TOPICAL QID 12/21/19 01/05/21 clotrimazole 60 % TOPICAL TID #0 gm 12/25/19 12/27/20 magnesium oxide 800 mg PO BID #120 cap 12/25/19 01/05/21 vits A and D-white pet-lanolin 60 g TOPICAL TID #0 g 12/25/19 01/05/21 zinc oxide 60 g TOPICAL TID #0 g 12/25/19 01/05/21 gabapentin [Neurontin] 400 mg PO BID 03/26/20 12/27/20 levofloxacin 750 mg PO DAILY #5 tab 03/26/20 12/27/20 levofloxacin 750 mg PO DAILY #3 tab 01/05/21 acetic acid 0.25 % irrigation 50 ml IR DAILY #90109 ml 05/06/21 solution mirabegron 25 mg tablet,extended 25 mg PO DAILY #90 tab 06/25/21 06/25/21 release 24 hr naltrexone 50 mg tablet 50 mg PO DAILY 06/25/21 Previous Rx's Medication Instructions Recorded Saccharomyces boulardii [Florastor] 250 mg PO BID #20 cap 06/16/19 clotrimazole 60 % TOPICAL TID #0 gm 12/25/19 magnesium oxide 800 mg PO BID #120 cap 12/25/19 vits A and D-white pet-lanolin 60 g TOPICAL TID #0 g 12/25/19 zinc oxide 60 g TOPICAL TID #0 g 12/25/19 levofloxacin 750 mg PO DAILY #5 tab 03/26/20 levofloxacin 750 mg PO DAILY #3 tab 01/05/21 acetic acid 0.25 % irrigation 50 ml IR DAILY #73795 ml 05/06/21 solution mirabegron 25 mg tablet,extended 25 mg PO DAILY #90 tab 06/25/21 release 24 hr Allergies Allergy/AdvReac Type Severity Reaction Status Date / Time ibuprofen AdvReac Mild Nausea Unverified 06/25/21 14:37 General BEVERLY: 3 Review of Systems Constitutional Constitutional: Denies fever(s) Respiratory Respiratory: Denies cough Gastrointestinal Gastrointestinal: Denies vomiting Genitourinary Genitourinary: Denies hematuria PFSH All Active Problems Suprapubic catheter dysfunction (Acute) UTI (urinary tract infection) (Acute) Transaminitis (Acute) Bladder spasm (Acute) COVID-19 ruled out (Acute) Neuropathic pain of finger of right hand (Acute) Fungal dermatitis (Acute) Chronic suprapubic catheter (Chronic) Hypomagnesemia (Acute) Acute UTI (Acute) Infiltrate of lung present on imaging of chest (Acute) UTI (urinary tract infection) (Acute) Hyperlipemia (Chronic) Intracranial aneurysm (Chronic) AAA (abdominal aortic aneurysm) (Chronic) Suprapubic catheter (Chronic) Diabetes mellitus (Chronic) Neurogenic bladder (Chronic) Paraplegia (Chronic) Medical History History of breast cancer Interstitial lung disease Surgical History H/O breast surgery H/O cervical spine surgery S/P cholecystectomy Social History Smoking/Tobacco Use Status: Former Tobacco Use Smoking risk assessment performed?: Yes Alcohol Intake: never Drug use: Never Substance use type: does not use Do you feel safe at home: Yes Do you feel safe in your relationship?: Yes Exam Const General: cooperative, comfortable and no acute distress Orientation: alert, awake and oriented x3 HENMT Head: normal to inspection, normocephalic and atraumatic Face and sinus: normal facial exam Mouth: moist mucous membranes Eyes Conjunctivae: conjunctivae normal Neck Neck: normal visual inspection, trachea midline and supple Resp Effort & Inspection: normal respiratory effort and able to speak in complete sentences Auscultation: clear to auscultation bilaterally Cardio Rate: regular rate Rhythm: regular rhythm GI Palpation: soft, not firm and no pulsatile masses Auscultation: normal bowel sounds Other: Suprapubic cystostomy wound present. There is no erythema or warmth. No signs of secondary infection. No drainage Skin General skin exam: no rashes or lesions noted Neuro General: patient alert, patient awake, moves all extremities and no focal motor deficits Sensory Exam: no sensory deficits noted Psych Appearance: grossly normal Mental Status: mental status grossly normal Procedures Catheter Insertion (Urinary) Prophylactic Antibiotics Given: No Bladder Scan/US before Catheterization: Yes Estimated amount of urine (mL): 175 Preparation: Providone-Iodine Type of Catheter Inserted: 2 way, [place] and silver-alloy Catheter Balloon Size (mls): 30 Topical Anesthesia Used: No Results: successfully catherized-immediate flow and urine sent for UA/ C&S Patient Tolerated Procedure: well Complications: none Additional Comments: This was a suprapubic catheter
--- NOTE | 2021-08-19 19:47 | SUR.PHASEI ---
pt blaqdder scan done 175ml
[2021-08-19 20:42] LABS: Bilirubin Negative (Negative); Blood Large (Negative); Clarity Clear (Clear); Glucose Negative (Negative); Ketones Negative (Negative); Leukocyte Esterase Small (Negative); Nitrite Negative (Negative); Specific Gravity 1.015 (1.005-1.025); Urobilinogen 0.2 EU/dL (Up TO 0.2)
[2021-08-19 20:45] LABS: Bacteria Rare HPF (Negative); C & S Indicated? No; Casts Negative LPF (Negative); Crystals Negative HPF (Negative); Epithelial Cells Rare HPF (Negative); Mucus Trace (Negative); RBC >50 HPF (0-2)
== END 2021-08-19 20:38 | disposition home or self-care (01) ==
PROVIDERS: Emergency Provider Physician Assistant; PCP Nurse Practitioner Family
DX: T83.028A Displacement of other urinary catheter, initial encounter (principal); R31.9 Hematuria, unspecified
CPT/HCPCS: 51702; 99283; 81003; 81015

== ENCOUNTER → 2022-06-24 14:36 | Outpatient (BNVA) | payer MEDICARE, OTHER, MEDICAID, SELFPAY | PROVIDERS: PCP Nurse Practitioner Family; Referring Provider Nurse Practitioner Family; Visit Provider Nurse Practitioner Gerontology | DX: N32.89 Other specified disorders of bladder (principal); N31.9 Neuromuscular dysfunction of bladder, unspecified | CPT/HCPCS: 99214 ==

== ENCOUNTER 2022-12-03 07:04 | Inpatient (IN) | payer MEDICARE, MEDICAID, SELFPAY ==
[2022-12-03] VITALS (52 sets, daily range): BP systolic 118–178; BP diastolic 44–114; PULSE 68–90; RESP 11–29; TEMP 36.3–36.9; O2SAT 86–97
--- NOTE | 2022-12-03 | DI.US_ITS ---
Exam(s) US RENAL EXAM: US RENAL CLINICAL HISTORY: UTI; suprapubic catheter;. TECHNIQUE: Addison scale, color and spectral Doppler were used. COMPARISON: US US RENAL from 12/23/2019 FINDINGS: Renal size in cm: Right: 9.4. Left: 9.3. Echogenicity: Normal. Hydronephrosis: No. Cyst or mass: No. Nephrolithiasis: No. Other findings: None. Bladder:The balloon from the catheter occupied the entire urinary bladder. Ureteral jets: Right: Not visualized on this examination. Left: Not visualized on this examination. Prevoid vol:0 cc Renal color flow: Symmetric and within normal limits. IMPRESSION: 1. Unremarkable kidneys. 2. The urinary bladder was empty except for the balloon from the catheter. DATA REPOSITORY:
--- NOTE | 2022-12-03 07:30 | DI.RAD_ITS ---
Exam(s) XR CHEST 1V IN DI DEPT EXAM: XR CHEST 1V IN DI DEPT CLINICAL HISTORY: relative hypoxia, fatigue TECHNIQUE: 2D digital imaging was performed of the chest. One image was obtained. An AP view was ob tained. COMPARISON: CR XR CHEST 1V IN DI DEPT from 06/22/2018 CR,XR XR PORTABLE CHEST AP from 01/05/2021 FINDINGS: MEDIASTINUM: Normal. HEART: Normal. PULMONARY VASCULATURE: Normal. LUNGS: There is a question of a new opacity in the left lung base obscuring the left hemidiaphragm. This was not present on the prior examination. Chronic appearing infiltrates are seen in the perihil ar region, left greater than right. No new focal consolidating infiltrates are seen on the right. PLEURAL SPACE: No pleural effusion or pneumothorax. BONE:Within normal limits for the patient's age. Postsurgical changes are again seen in the lower cer vical spine. OTHER FINDINGS:Normal. IMPRESSION: New basilar opacity obscuring the left hemidiaphragm. This may represent atelectasis or pneumonia. DATA REPOSITORY: RADIATION DOSE DELIVERED:
--- NOTE | 2022-12-03 07:45 | RT.EKG_ITS ---
APPROVED REPORT Exam: Resting ECG Reason for Exam: 82 y/o female sick Patient Location: E HR:73 bpm ECG Measurements Heart Rate 73 AXIS AR 182 P 31 QRSd 84 QRS 22 QT 381 T 36 QTc 422 Conclusion Sinus rhythm...normal P axis, V-rate 60- 99 sinus rhythm, normal axis, normal intervals, non ischemic
[2022-12-03 08:27] LABS: Abs Immature Grans 0.07 10^3/uL (0.0-0.06); Absolute Basophil Count 0.04 10^3/uL (0.0-0.2); Absolute Eosinophil Count 0.18 10^3/uL (0.0-0.7); Absolute Lymphocyte Count 2.33 10^3/uL (1.2-3.4); Absolute Monocyte Count 0.33 10^3/uL (0.1-0.8); Absolute Neutrophil Count 5.93 10^3/uL (1.2-6.7); Basophils % 0.5; HCT 36.8 % (36.0-46.0); HGB 12.6 g/dL (11.2-15.7); Immature Grans % 0.8; Lymphocytes % 26.2; MCH 31.7 pg (27.0-33.0); MCHC 34.2 % (32.0-36.0); MCV 93 fL (80-95); MPV 9.5 fL (8.0-11.0); Monocytes % 3.7; Neutrophils % 66.8; Platelet Count 196 10^3/uL (130-400); RBC 3.97 10^6/uL (3.93-5.22); RDW 12.3 % (11.7-14.6); RDW-SD 42.2 fL; WBC 8.88 10^3/uL (4.4-10.8)
--- NOTE | 2022-12-03 08:28 | W.ED.GENAD ---
Discharge Plan Disposition Patient Disposition: Admit to [facility] Discharge Details Chief Complaint: Urinary Clinical Impression: Pneumonia, Acute UTI Primary Care Provider: Nida Farooq ED Provider: Mervin Yap Home Meds and New Rx's Prescriptions: No Action Myrbetriq 25 mg tablet extended release 24 hr 25 mg PO DAILY Qty: 90 3RF magnesium oxide 400 mg magnesium capsule 400 mg PO BID AZO D-Mannose 500 mg capsule 500 mg PO BID PRN cyanocobalamin (vitamin B-12) 1,000 mcg capsule 1,000 mcg PO DAILY docusate sodium 283 mg enema 100 mg OK ONCE PRN Rx Instructions: daily x 90 days fluorouracil 5 % cream 1 applic topical BID ipratropium-albuterol 0.5 mg-3 mg(2.5 mg base)/3 mL solution for nebulization 3 ml inhalation Q6H PRN lidocaine 5 % cream 1 applic topical TID PRN acetic acid 0.25 % solution 50 ml IR DAILY Qty: 74732 12RF Rx Instructions: for urinary catheter flush nitrofurantoin monohyd/m-cryst [Macrobid] 100 mg capsule 100 mg PO BID Rx Instructions: must administer with a meal/food cetirizine 10 mg tablet 10 mg PO DAILY PRN calcium carbonate-vitamin D3 [Calcium 500 With D] 500 mg(1,250mg) -400 unit Tablet 1 tab PO BID levothyroxine 125 mcg tablet 75 mcg PO DAILY Rx Instructions: M/W/F/Sat gabapentin 600 mg tablet 600 mg PO BID Renacidin 1,980.6 mg-59.4 mg-980.4mg/30mL solution 30 ml irrigation DAILY multivitamin Tablet 1 tab PO DAILY metformin 500 mg Tablet 1,000 mg PO BID atorvastatin 10 mg Tablet 10 mg PO HS aspirin 81 mg Tablet,Delayed Release (Dr/Ec) 81 mg PO DAILY baclofen 10 mg tablet 20 mg PO TID acetaminophen 500 mg tablet 1,000 mg PO TID PRN gabapentin [Neurontin] 400 mg capsule 400 mg PO QNOON Medical Decision Making 82-year-old female history paraplegia with neurogenic bladder, suprapubic catheter, recurrent UTIs, presents with generalized fatigue feeling unwell decreased p.o. intake of the past several days. Denies nausea or vomiting no diarrhea or constipation. Patient is afebrile relatively nontoxic. Noted to be satting 92% on room air no history of supplemental oxygen use denies respiratory symptoms at this time. Feels as she has the past with UTIs. Given history and physical as well as risk factors will obtain urinalysis, basic labs, chest x-ray, viral panel, light fluids, disposition pending reassessment and results. 11: 40 patient resting comfortably no acute distress. Does have wet sounding cough on repeat examination. No significant B-lines appreciated on bedside ultrasound. Starting patient on ceftriaxone and azithromycin to cover both urinary and pulmonary sources. Patient be admitted given age comorbidities and hypoxia HPI General Date/Time Provider Initiated Documentation: 12/03/22 07:38. HPI Narrative: 82-year-old female history of paraplegia, neurogenic bladder, history of recurrent UTIs presents with generalized fatigue feeling unwell over the past several days, also had decreased p.o. intake. Denies nausea or vomiting denies diarrhea or constipation. No chest pain or shortness of breath. Related Data Home Medications Medication Instructions Recorded Confirmed aspirin 81 mg tablet,delayed 81 mg PO DAILY 06/23/18 12/03/22 release atorvastatin 10 mg tablet 10 mg PO HS 06/23/18 12/03/22 metformin 500 mg tablet 1,000 mg PO BID 06/23/18 12/03/22 multivitamin 1 tab PO DAILY 06/23/18 12/03/22 calcium carbonate 500 mg-vitamin 1 tab PO BID 06/16/19 12/03/22 D3 10 mcg (400 unit) tablet (Calcium 500 With D) citric ac 1980.6 mg-glucono 59.4 30 ml irrigation DAILY 12/21/19 12/03/22 mg-mag carb 980.4 mg/30 mL irrig.soln (Renacidin) acetic acid 0.25 % irrigation 50 ml irrigation DAILY irrigate 05/06/21 12/03/22 solution liu catheter #12,000 mL baclofen 10 mg tablet 20 mg PO TID 06/24/22 12/03/22 levothyroxine 125 mcg tablet 75 mcg PO DAILY 06/24/22 12/03/22 mirabegron 25 mg tablet,extended 25 mg PO DAILY #90 tabs 06/24/22 12/03/22 release 24 hr (Myrbetriq) acetaminophen 500 mg tablet 1,000 mg PO TID PRN 08/25/22 12/03/22 cyanocobalamin (vitamin B-12) 1,000 mcg PO DAILY 08/25/22 12/03/22 1,000 mcg capsule d-mannose 500 mg capsule (AZO 500 mg PO BID PRN 08/25/22 12/03/22 D-Mannose) docusate sodium 283 mg enema 100 mg OK ONCE PRN 08/25/22 12/03/22 fluorouracil 5 % topical cream 1 applic topical BID 08/25/22 12/03/22 gabapentin 400 mg capsule 400 mg PO QNOON 08/25/22 12/03/22 (Neurontin) gabapentin 600 mg tablet 600 mg PO BID 08/25/22 12/03/22 ipratropium 0.5 mg-albuterol 3 mg 3 ml inhalation Q6H PRN 08/25/22 12/03/22 (2.5 mg base)/3 mL nebulization soln lidocaine 5 % topical cream 1 applic topical TID PRN 08/25/22 12/03/22 magnesium oxide 400 mg PO BID 08/25/22 12/03/22 cetirizine 10 mg tablet 10 mg PO DAILY PRN 11/04/22 12/03/22 nitrofurantoin 100 mg PO BID 11/04/22 12/03/22 monohydrate/macrocrystals 100 mg capsule (Macrobid) Previous Rx's Medication Instructions Recorded acetic acid 0.25 % irrigation 50 ml irrigation DAILY irrigate 05/06/21 solution liu catheter #12,000 mL mirabegron 25 mg tablet,extended 25 mg PO DAILY #90 tabs 06/24/22 release 24 hr (Myrbetriq) Allergies Allergy/AdvReac Type Severity Reaction Status Date / Time ibuprofen AdvReac Mild Nausea Unverified 12/03/22 08:57 General Stated Complaint: Urinary BEVERLY: 3 Review of Systems Narrative: Review of Systems Constitutional: Fatigue Eyes: negative ENT: negative Cardiovascular: negative Respiratory: negative Gastrointestinal: negative : negative Musculoskeletal: negative Skin: negative Neurologic: negative Psych: negative PFSH All Active Problems (Updated 12/03/22 @ 11:41 by Mervin Yap MD) Pneumonia (Acute) Acute UTI (Acute) Spinal stenosis, lumbar (Acute) Primary malignant neoplasm of breast (Acute) Neurogenic claudication (Acute) Hypothyroidism (Chronic) Hypertension (Chronic) Constipation due to neurogenic bowel (Acute) Benign neoplasm of colon (Acute) Autonomic dysreflexia (Acute) Arm edema (Acute) Nail dystrophy (Acute) UTI (urinary tract infection) (Acute) Transaminitis (Acute) Bladder spasm (Acute) COVID-19 ruled out (Acute) Neuropathic pain of finger of right hand (Acute) Fungal dermatitis (Acute) Chronic suprapubic catheter (Chronic) Hypomagnesemia (Acute) Acute UTI (Acute) Infiltrate of lung present on imaging of chest (Acute) UTI (urinary tract infection) (Acute) Hyperlipemia (Chronic) Intracranial aneurysm (Chronic) AAA (abdominal aortic aneurysm) (Chronic) Suprapubic catheter (Chronic) Diabetes mellitus (Chronic) Neurogenic bladder (Chronic) Paraplegia (Chronic) Medical History (Updated 12/03/22 @ 11:41 by Mervin Yap MD) Cervical disc disorder CTS (carpal tunnel syndrome) left wrist ESBL (extended spectrum beta-lactamase) producing bacteria infection History of breast cancer Interstitial lung disease Pressure ulcer Surgical History (Updated 10/06/22 @ 08:42 by Libertad Torre RN) H/O breast surgery H/O cervical spine surgery S/P cholecystectomy S/P rotator cuff repair S/P trigger finger release S/P tubal ligation Social History (Updated 08/25/22 @ 22:25 by Kait Cabrera RN) Smoking/Tobacco Use Status: Former Tobacco Use Quit Date: 08/17/06 Pack-years: 40 Smoking risk assessment performed?: Yes Alcohol Intake: never Drug use: Never Substance use type: does not use Current gender identity: female Do you feel safe at home: Yes Do you feel safe in your relationship?: Yes Exam Narrative Exam Narrative: Physical Examination General: alert, awake, cooperative, resting comfortably, no acute distress HEENT: normocephalic, atraumatic; PERRL, EOM intact, conjunctiva normal; no nasal discharge; moist mucous membranes, oral and pharyngeal mucosa normal, tolerating secretions Neck: supple, trachea midline; full ROM Chest: normal to inspection Respiratory: normal respiratory effort, speaking in full sentences, clear to auscultation, no wheezing, rales or rhonchi Cardiac: regular rate, regular rhythm, S1S2 intact, no murmurs rubs or gallops GI: abdomen soft, non-tender, non-distended; no palpable mass or hepatosplenomegaly :darker yellow clear urine in Liu bag Skin: no lesions, rashes or trauma appreciated Neuro: AAOx3, normal speech, paraplegia involving the lower extremities, with decreased motion and contractures of upper extremities Psych: Appropriate mood and affect Course Vital Signs Vital signs: Vital Signs Temperature 36.9 C 12/03/22 07:10 Pulse 74 12/03/22 07:10 Respiratory Rate 20 12/03/22 07:10 Blood Pressure 154/96 H 12/03/22 07:10 Pulse Oximetry 92 12/03/22 07:10 Temperature 36.9 C 12/03/22 07:10 Temperature Source Oral 12/03/22 07:10 Pulse 74 12/03/22 07:10 Respiratory Rate 20 12/03/22 07:10 Respiratory Effort Normal, Non-Labored 12/03/22 07:22 Blood Pressure 154/96 H 12/03/22 07:10 Blood Pressure Position Supine 12/03/22 07:10 Pulse Oximetry 92 12/03/22 07:10 Oxygen Delivery Method Room Air 12/03/22 07:10 Oxygen Flow Rate 0 12/03/22 07:10 Pain Level 0 12/03/22 07:10
[2022-12-03 08:30] LABS: Bilirubin Negative (Negative); Blood Trace-intact (Negative); Clarity Sl Cloudy (Clear); Glucose Negative (Negative); Ketones Negative (Negative); Leukocyte Esterase Moderate (Negative); Nitrite Positive (Negative); Specific Gravity 1.015 (1.005-1.025); Urobilinogen 0.2 mg/dL (Up to 0.2)
[2022-12-03] MEDS: Normal Saline 500 ML 1000 ML IV (08:30)
[2022-12-03 08:38] LABS: Bacteria Many HPF (Negative); C & S Indicated? Yes; Casts 0-2 Hyaline LPF (Negative); Crystals Negative HPF (Negative); Epithelial Cells Rare HPF (Negative); Mucus Trace (Negative); RBC 0-2 HPF (0-2); WBC >50 HPF (0-5)
[2022-12-03 08:57] LABS: ALT 58 U/L (14-59); AST 32 U/L (15-37); Albumin 3.6 g/dL (3.4-5.0); Alkaline Phosphatase 62 U/L (46-116); Anion Gap 8.6 mmol/L (3-11); BUN 11 mg/dL (7-18); Bilirubin, Total 0.6 mg/dL (0.2-1.0); CO2 26.4 mmol/L (21.0-32.0); CREATININE 0.6 mg/dL (0.55-1.02); Calcium 9.2 mg/dL (8.5-10.1); Chloride 93 mmol/L (98-107); Estimated GFR 89.56 (mL/min/1.73m2); Glucose 132 mg/dL (74-106); Potassium 4.6 mmol/L (3.5-5.1); Sodium 128 mmol/L (136-145); Total Protein 8.2 g/dL (6.4-8.2)
[2022-12-03 09:04] LABS: COVID-19 PCR Negative (Negative); Influenza A PCR Negative (Negative); Influenza B PCR Negative (Negative); RSV PCR Negative (Negative)
[2022-12-03 09:09] LABS: Source Nasopharynx
--- NOTE | 2022-12-03 10:34 | NUR.NOTE ---
Unable to get pt weight due to broken scale, pt doesn't know her current weight, PCP was contacted and provided a previous weight of 83.46kg from 10/2021. NOAH
[2022-12-03] MEDS: cefTRIAXone 1 GM/50 ML BAG IVPB (11:17)
[2022-12-03 11:58] LABS: NT-proBNP 175 pg/mL (<300)
[2022-12-03] MEDS: AZITHROMYCIN 500 MG in Normal Saline 250 ML 250 MG IVPB (12:03)
[2022-12-03 12:43] LABS: Procalcitonin < 0.1 ng/mL
[2022-12-03] MEDS: Enoxaparin 40 MG/0.4 ML SYR SC (13:14)
--- NOTE | 2022-12-03 13:16 | HPE_ITS ---
Date of service: 12/03/22 Time of Service: 13:16 Assessment and Plan Assessment and plan (1) Acute dehydration: Status: Resolved Assessment and plan: LR 100 ml/h for acute dehydration. Once we ensure that she is taking adequate oral intake, discontinue her IV fluids. (2) Diabetes mellitus: Status: Chronic Assessment and plan: Blood sugars 130s in ED Last A1C 6.7 11/04/2021 will repeat Qualifiers: Diabetes mellitus complication status: without complication Diabetes mellitus jail insulin use: without intermediate frame tender use Diabetes mellitus type: type 2 Qualified Code(s): E11.9 - Type 2 diabetes mellitus without complications (3) Neurogenic bladder: Status: Chronic Assessment and plan: Suprapubic catheter changed today 12/03/22. (4) Paraplegia: Status: Chronic Assessment and plan: Position, assist with ADL's (5) Suprapubic catheter: Status: Chronic Assessment and plan: Changed 12/03/2022 - site without erythema (6) Pneumonia: Status: Acute Assessment and plan: LLL pneumonia - Blood culture pending Strep, Legionella, mycoplasma and MRSA pending, Sputum cx pending Azithromycin and ceftriaxone (7) Acute UTI: Status: Acute Assessment and plan: Cx pending; ceftriaxone (8) DVT prophylaxis: Status: Acute Assessment and plan: Enoxaparin 40 mg daily (9) Discharge planning issues: Status: Acute Assessment and plan: Home when stable History of Present Illness History of Present Illness Chief Complaint: Fatigue; decreased oral intake Narrative: 82-year-old female history of paraplegia, neurogenic bladder, history of recurrent UTIs presents with generalized fatigue feeling unwell over the past several days, also had decreased p.o. intake.? Denies fever, nausea or vomiting denies diarrhea or constipation.? No chest pain or shortness of breath. Wet sounding cough in the ED. Patient was admitted to the medical floor to be treated for possible UTI, possible pneumonia; started on ceftriaxone and azithromycin. She is admitted to the medical floor for antibiotics, IV fluids and further work up and monitoring, stable. 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 bowel (Acute) Benign neoplasm of colon (Acute) Autonomic dysreflexia (Acute) Arm edema (Acute) Nail dystrophy (Acute) UTI (urinary tract infection) (Acute) Transaminitis (Acute) Bladder spasm (Acute) COVID-19 ruled out (Acute) Neuropathic pain of finger of right hand (Acute) Fungal dermatitis (Acute) Chronic suprapubic catheter (Chronic) Hypomagnesemia (Acute) Acute UTI (Acute) Infiltrate of lung present on imaging of chest (Acute) UTI (urinary tract infection) (Acute) Hyperlipemia (Chronic) Intracranial aneurysm (Chronic) AAA (abdominal aortic aneurysm) (Chronic) Suprapubic catheter (Chronic) Diabetes mellitus (Chronic) Neurogenic bladder (Chronic) Paraplegia (Chronic) Medical History (Updated 12/03/22 @ 18:28 by Lilly Merritt NP) Cervical disc disorder CTS (carpal tunnel syndrome) left wrist ESBL (extended spectrum beta-lactamase) producing bacteria infection History of breast cancer Interstitial lung disease Pressure ulcer Surgical History (Updated 10/06/22 @ 08:42 by Libertad Torre RN) H/O breast surgery H/O cervical spine surgery S/P cholecystectomy S/P rotator cuff repair S/P trigger finger release S/P tubal ligation Social History (Updated 08/25/22 @ 22:25 by Kait Cabrera RN) Smoking/Tobacco Use Status: Former Tobacco Use Quit Date: 08/17/06 Pack-years: 40 Smoking risk assessment performed?: Yes Alcohol Intake: never Drug use: Never Substance use type: does not use Current gender identity: female Do you feel safe at home: Yes Do you feel safe in your relationship?: Yes Meds Allergies and Home Medications Allergies Allergy/AdvReac Type Severity Reaction Status Date / Time ibuprofen AdvReac Mild Nausea Unverified 12/03/22 08:57 Home Medications Medication Instructions Recorded Confirmed Type aspirin 81 mg tablet,delayed 81 mg PO DAILY 06/23/18 12/03/22 History release atorvastatin 10 mg tablet 10 mg PO HS 06/23/18 12/03/22 History metformin 500 mg tablet 1,000 mg PO BID 06/23/18 12/03/22 History multivitamin 1 tab PO DAILY 06/23/18 12/03/22 History calcium carbonate 500 mg-vitamin 1 tab PO BID 06/16/19 12/03/22 History D3 10 mcg (400 unit) tablet (Calcium 500 With D) citric ac 1980.6 mg-glucono 59.4 30 ml irrigation DAILY 12/21/19 12/03/22 H istory mg-mag carb 980.4 mg/30 mL irrig.soln (Renacidin) acetic acid 0.25 % irrigation 50 ml irrigation DAILY irrigate 05/06/21 12/03/22 Rx solution liu catheter #12,000 mL baclofen 10 mg tablet 20 mg PO TID 06/24/22 12/03/22 History levothyroxine 125 mcg tablet 75 mcg PO DAILY 06/24/22 12/03/22 History mirabegron 25 mg tablet,extended 25 mg PO DAILY #90 tabs 06/24/22 12/03/22 Rx release 24 hr (Myrbetriq) acetaminophen 500 mg tablet 1,000 mg PO TID PRN 08/25/22 12/03/22 History cyanocobalamin (vitamin B-12) 1,000 mcg PO DAILY 08/25/22 12/03/22 History 1,000 mcg capsule d-mannose 500 mg capsule (AZO 500 mg PO BID PRN 08/25/22 12/03/22 History D-Mannose) docusate sodium 283 mg enema 100 mg UT ONCE PRN 08/25/22 12/03/22 History fluorouracil 5 % topical cream 1 applic topical BID 08/25/22 12/03/22 History gabapentin 400 mg capsule 400 mg PO QNOON 08/25/22 12/03/22 History (Neurontin) gabapentin 600 mg tablet 600 mg PO BID 08/25/22 12/03/22 History ipratropium 0.5 mg-albuterol 3 mg 3 ml inhalation Q6H PRN 08/25/22 12/03/22 History (2.5 mg base)/3 mL nebulization soln lidocaine 5 % topical cream 1 applic topical TID PRN 08/25/22 12/03/22 History magnesium oxide 400 mg PO BID 08/25/22 12/03/22 History cetirizine 10 mg tablet 10 mg PO DAILY PRN 11/04/22 12/03/22 History nitrofurantoin 100 mg PO BID 11/04/22 12/03/22 History monohydrate/macrocrystals 100 mg capsule (Macrobid) Exam Narrative Exam Narrative: Physical Examination General: alert, awake, cooperative, resting comfortably, no acute distress HEENT: normocephalic, atraumatic; PERRL, EOM intact, conjunctiva normal; no nasal discharge; moist mucous membranes, oral and pharyngeal mucosa normal, tolerating secretions Neck: supple, trachea midline; full ROM Chest: normal to inspection Respiratory: normal respiratory effort, speaking in full sentences, clear to auscultation, no wheezing, rales or rhonchi Cardiac: regular rate, regular rhythm, S1S2 intact, no murmurs rubs or gallops GI: abdomen soft, non-tender, non-distended; no palpable mass or hepatosplenomegaly :darker yellow clear urine in Liu bag Skin: no lesions, rashes or trauma appreciated Neuro: AAOx3, normal speech, paraplegia involving the lower extremities, with decreased motion and contractures of upper extremities Psych: Appropriate mood and affect Results Labs 12/03/22 08:20 12/03/22 08:20 Labs: Laboratory Results - last 24 hr 12/03/22 12/03/22 12/03/22 08:20 08:20 08:20 WBC 8.88 RBC 3.97 Hgb 12.6 Hct 36.8 MCV 93 MCH 31.7 MCHC 34.2 RDW 12.3 Plt Count 196 MPV 9.5 Immature Gran % 0.8 Neutrophils % 66.8 Lymphocytes % 26.2 Monocytes % 3.7 Eosinophils % 2.0 Basophils % 0.5 Nucleated RBC % 0.0 Absolute Neutrophils 5.93 Absolute Lymphocytes 2.33 Absolute Monocytes 0.33 Absolute Eosinophils 0.18 Absolute Basophils 0.04 Sodium 128 L Potassium 4.6 Chloride 93 L Carbon Dioxide 26.4 Anion Gap 8.6 BUN 11 Creatinine 0.6 Est GFR (CKD-EPI 2020) 89.56 Glucose 132 H Calcium 9.2 Total Bilirubin 0.6 AST 32 ALT 58 Alkaline Phosphatase 62 NT-Pro-B Natriuret Pep Total Protein 8.2 Albumin 3.6 Procalcitonin Urine Color Urine Clarity Urine pH Ur Specific Cotter Urine Protein Urine Ketones Urine Blood Urine Nitrite Urine Bilirubin Urine Urobilinogen Ur Leukocyte Esterase Urine RBC Urine WBC Ur Epithelial Cells Urine Crystals Urine Bacteria Urine Casts Urine Mucus Ur Culture Indicated? Urine Glucose COVID-19 Source Nasopharynx SARS-CoV-2 (PCR) Negative Influenza Type A (PCR) Negative Influenza Type B (PCR) Negative RSV (PCR) Negative 12/03/22 12/03/22 12/03/22 08:20 08:20 08:20 WBC RBC Hgb Hct MCV MCH MCHC RDW Plt Count MPV Immature Gran % Neutrophils % Lymphocytes % Monocytes % Eosinophils % Basophils % Nucleated RBC % Absolute Neutrophils Absolute Lymphocytes Absolute Monocytes Absolute Eosinophils Absolute Basophils Sodium Potassium Chloride Carbon Dioxide Anion Gap BUN Creatinine Est GFR (CKD-EPI 2020) Glucose Calcium Total Bilirubin AST ALT Alkaline Phosphatase NT-Pro-B Natriuret Pep 175 Total Protein Albumin Procalcitonin < 0.1 Urine Color Yellow Urine Clarity Sl Cloudy Urine pH 7.0 Ur Specific Cotter 1.015 Urine Protein 30 H Urine Ketones Negative Urine Blood Trace-intact H Urine Nitrite Positive H Urine Bilirubin Negative Urine Urobilinogen 0.2 Ur Leukocyte Esterase Moderate H Urine RBC 0-2 Urine WBC >50 H Ur Epithelial Cells Rare Urine Crystals Negative Urine Bacteria Many Urine Casts 0-2 Hyaline Urine Mucus Trace Ur Culture Indicated? Yes Urine Glucose Negative COVID-19 Source SARS-CoV-2 (PCR) Influenza Type A (PCR) Influenza Type B (PCR) RSV (PCR) Last Vital Signs Temp 36.9 C 12/03/22 12:45 Pulse 83 12/03/22 12:45 Resp 18 12/03/22 12:45 BP 148/83 H 12/03/22 12:45 Pulse Ox 97 12/03/22 12:45 Time Spent Time spent with Patient: 55-74 minutes Time was spent: preparing to see the patient(eg.review tests), obtaining and/or reviewing separately otained hiistory, ordering medications,tests, procedures, referring, communicating with other health healthcare project manager, indepentently interpreting results, counseling the patient and care coordination
--- NOTE | 2022-12-03 15:17 | PDOC.CMIN ---
- If Service Date Differs Date of service: 12/03/22 Time of Service: 15:17 Care Management Initial Assess REASON FOR HOSPITALIZATION:: Left Lower Lobe Pneumonia PAST MEDICAL HISTORY/PAST SURGICAL HISTORY:: Medical History (Updated 12/03/22 @ 11:41 by Mervin Yap MD). Cervical disc disorder. CTS (carpal tunnel syndrome). left wrist. ESBL (extended spectrum beta-lactamase) producing bacteria infection. History of breast cancer. Interstitial lung disease. Pressure ulcer. Surgical History (Updated 10/06/22 @ 08:42 by Libertad Torre RN). H/O breast surgery. H/O cervical spine surgery. S/P cholecystectomy. S/P rotator cuff repair. S/P trigger finger release. S/P tubal ligation PREVIOUS FUNCTIONAL STATUS/SOCIAL/FAMILY SUPPORTS:: Gerardo resides in [place] with her . Together, they have six children, all of whom live nearby and are supportive of Gerardo. 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 Her children and her provide most of her care at home, with home health support as well. Gerardo requires assistance with all ADLs and total care. She transports via EMS. CURRENT FUNCTIONAL STATUS:: Admitted to M/S this afternoon, engaged in manager intern. CM will continue to follow. ADVANCE DIRECTIVES:: Reports on file, with daughter as agent-not immediately available in chart. Has patient been provided with info about the portal/API?: No Did the patient sign up for the portal?: No CODE STATUS:: Full Code INSURANCE COVERAGE / FINANCIAL ISSUES:: [facility]. GEMMA: Code [facility] Moralez CURRENT HOME/COMMUNITY SERVICES/EQUIPMENT:: [employer] lift, hospital bed, wheelchair, ramps, and shower chair at home. Her and her children provide most of her care and she has Home Health nursing services. PRIMARY CARE PHYSICIAN:: Nida Farooq POTENTIAL DISCHARGE NEEDS:: Transportation coordination. PATIENT/FAMILY EDUCATION NEEDS:: Review discharge instructions re medications and acitivity levels, including Ask Me Three and self-management. ANTICIPATED BARRIERS TO DISCHARGE:: None identified. TRANSPORTATION:: Via ambulance, coordinated by CM. PLAN:: Gerardo will be discharged home with a resumption of Home Health services when medically cleared by provider. Gerardo will be transported home by ambulance coordinated by CM when ready. CM will continue to support patient and discharge planning needs.
[2022-12-03] MEDS: Lactated Ringers 1,000 ML 100 ML IV ×2 (19:55→22:54)
--- NOTE | 2022-12-03 20:02 | TELEP.MEDR_ITS ---
Date of service: 12/03/22 Time of Service: 20:03 Telepharmlegacy health Home Med Rec Allergies Allergies: ibuprofen Adverse Reaction (Mild, Unverified 12/03/22 08:57) Nausea Interview Person Interviewed: * (Bandar) Quality Quality of Interview/Accuracy of Medication List: Good Sources Sources used to compile medication list: [facility] Medication List, Retail Pharmacy and Patient List Changes made to Home Medication List: ADDITIONS: * Omeprazole 20mg PO daily * Senna 8.6mg PO qHS DELETIONS: * Acetic acid * Cetirizine * Docusate * Fluorouracil cream * DuoNeb * Macrobid CHANGES: * Gabapentin TID: 400mg @0800, 400mg @noon, 600mg qHS * D-mannose 1000mg PO BID Additional Notes Additional Notes: * Renacidin irrigation is done every day except Thursday by vising nurse Recommended Changes Recommended Changes(reason for recommendation): * none Attestation: The home medication list is now updated to the best of my knowledge and is ready to be reconciled by the provider. Please contact the [facility] Medication Reconciliation Pharmacist at for any questions.
--- NOTE | 2022-12-03 20:02 | TELEP.MEDREC ---
Date of service: 12/03/22 Time of Service: 20:03 Telepharmacy Home Med Rec Allergies Allergies: ibuprofen Adverse Reaction (Mild, Unverified 12/03/22 08:57) Nausea Interview Person Interviewed: (Bandar) Quality Quality of Interview/Accuracy of Medication List: Good Sources Sources used to compile medication list: [employer] Medication List, Retail Pharmacy and Patient List Changes made to Home Medication List: ADDITIONS: Omeprazole 20mg PO daily Senna 8.6mg PO qHS DELETIONS: Acetic acid Cetirizine Docusate Fluorouracil cream DuoNeb Macrobid CHANGES: Gabapentin TID: 400mg @0800, 400mg @noon, 600mg qHS D-mannose 1000mg PO BID Additional Notes Additional Notes: Renacidin irrigation is done every day except Thursday by vising nurse Recommended Changes Recommended Changes(reason for recommendation): none Attestation: The home medication list is now updated to the best of my knowledge and is ready to be reconciled by the provider. Please contact the TelePharmacy Medication Reconciliation Pharmacist at for any questions.
[2022-12-04] VITALS (8 sets, daily range): BP systolic 130–195; BP diastolic 74–82; PULSE 75–94; RESP 16–18; TEMP 36.3–37.3; O2SAT 94–98
[2022-12-04 06:43] LABS: Abs Immature Grans 0.05 10^3/uL (0.0-0.06); Absolute Basophil Count 0.03 10^3/uL (0.0-0.2); Absolute Eosinophil Count 0.14 10^3/uL (0.0-0.7); Absolute Lymphocyte Count 1.96 10^3/uL (1.2-3.4); Absolute Monocyte Count 0.38 10^3/uL (0.1-0.8); Basophils % 0.4; Eosinophils % 1.9; HGB 12.6 g/dL (11.2-15.7); Immature Grans % 0.7; MCH 31.6 pg (27.0-33.0); MCHC 34.1 % (32.0-36.0); MCV 93 fL (80-95); MPV 9.6 fL (8.0-11.0); Monocytes % 5.2; Neutrophils % 64.8; Platelet Count 197 10^3/uL (130-400); RBC 3.99 10^6/uL (3.93-5.22); RDW 12.4 % (11.7-14.6); RDW-SD 42.1 fL; WBC 7.26 10^3/uL (4.4-10.8)
[2022-12-04 06:54] LABS: Anion Gap 6.3 mmol/L (3-11); BUN 8 mg/dL (7-18); CO2 27.7 mmol/L (21.0-32.0); CREATININE 0.5 mg/dL (0.55-1.02); Calcium 8.7 mg/dL (8.5-10.1); Chloride 96 mmol/L (98-107); Estimated GFR 93.59 (mL/min/1.73m2); Glucose 142 mg/dL (74-106); Magnesium 1.7 mg/dL (1.8-2.4); Potassium 4.2 mmol/L (3.5-5.1); Sodium 130 mmol/L (136-145)
[2022-12-04 07:48] LABS: Hemoglobin A1C 6.6 % (<5.7)
[2022-12-04] MEDS: cefTRIAXone 1 GM/50 ML BAG IVPB (08:06)
--- NOTE | 2022-12-04 09:08 | NUR.NOTE ---
Nursing Note: Called pharmacy due to ABX still not available. Spoke with Judith & she stated she would look into the med being sent to the unit. Will continue to monitor.
--- NOTE | 2022-12-04 09:35 | NUR.NOTE ---
Still awaiting ABX from pharmacy. Will continue to monitor. Nursing Note:
[2022-12-04] MEDS: AZITHROMYCIN 250 MG in Normal Saline 250 ML IVPB (09:59)
--- NOTE | 2022-12-04 11:46 | CMPROGNOTE_ITS ---
- If Service Date Differs Date of service: 12/04/22 Time of Service: 11:46 Care Management Progress Note S/O: Gerardo was sitting up in bed when CM met with her. One of her caregivers was in the room visiting. Gerardo stated that she is doing ok, and that per MD, she may be able to return home tomorrow if she continues to improve. She stated that she is very well supported by her family, home health, and her caregivers. She reported that O/E BELEM goes to her home for 2 hours a day, in the morning, and her five children each take one night a week to stay at her home, with her and her . She reported that she transports via [facility], which CM will coordinate upon discharge. CM will continue to follow. A: Gerardo is an 82 year old female admitted to [facility] on 12/03/22 for left lower lobe pneumonia. P: Gerardo will be discharged home, likely with a resumption of Home Health services when medically cleared by provider. Gerardo will be transported home by ambulance coordinated by CM when ready. CM will continue to support patient and discharge planning needs.
[2022-12-04] MEDS: Lisinopril 10 MG TAB PO (11:48)
[2022-12-04] MEDS: Enoxaparin 40 MG/0.4 ML SYR SC (11:52)
--- NOTE | 2022-12-04 13:19 | PGE_ITS ---
Date of Service Date of service: 12/04/22 Time of Service: 13:19 Assessment and Plan Assessment and plan (1) Acute dehydration: Status: Resolved Assessment and plan: euvolemic, discontinue IV fluids. 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 (4) Paraplegia: Status: Chronic Assessment and plan: Position, assist with ADL's (5) Suprapubic catheter: Status: Chronic Assessment and plan: Changed 12/03/2022 - site without erythema (6) Pneumonia: Status: Acute Assessment and plan: LLL pneumonia - Blood culture pending Strep, Legionella, mycoplasma and MRSA pending, Sputum cx pending Azithromycin and ceftriaxone day 2 (7) Acute UTI: Status: Acute Assessment and plan: Cx pending; ceftriaxone (8) DVT prophylaxis: Status: Acute Assessment and plan: Enoxaparin 40 mg daily (9) Discharge planning issues: Status: Acute Assessment and plan: Home when stable discussed with DR Bey Subjective Subjective Patient reports: no new complaints, feels better, tolerating liquids well, tolerating a regular diet and afebrile; denies shortness of breath Interval history since last seen: denies cough or shortness of breath. oxygen in the high 90's on room air. denies any c/o Exam Const General: cooperative, comfortable and no acute distress Nutritional Appearance: obese Orientation: alert, awake and oriented x3 HENMT Head: normal to inspection and normocephalic Mouth: oral mucosae normal Chest Chest: normal inspection of the chest Resp Effort & Inspection: normal respiratory effort Auscultation: clear to auscultation bilaterally, no rhonchi and no wheezes Cardio Rate: regular rate Rhythm: regular rhythm Heart Sounds: no murmurs GI Inspection: normal to inspection Extrem General: abnormal to inspection (flacid lower, upper extremities partial with hands) Objective Last Vital Signs Temp 36.7 C 12/04/22 11:15 Pulse 79 12/04/22 11:15 Resp 17 12/04/22 11:15 BP 195/78 H 12/04/22 11:15 Pulse Ox 98 12/04/22 11:15 Laboratory Results - last 24 hr 12/03/22 12/04/22 12/04/22 23:00 06:11 06:11 WBC RBC Hgb Hct MCV MCH MCHC RDW Plt Count MPV Immature Gran % Neutrophils % Lymphocytes % Monocytes % Eosinophils % Basophils % Nucleated RBC % Absolute Neutrophils Absolute Lymphocytes Absolute Monocytes Absolute Eosinophils Absolute Basophils Sodium 130 L Potassium 4.2 Chloride 96 L Carbon Dioxide 27.7 Anion Gap 6.3 BUN 8 Creatinine 0.5 L Est GFR (CKD-EPI 2020) 93.59 Glucose 142 H Hemoglobin A1c 6.6 H Calcium 8.7 Magnesium 1.7 L M. pneumoniae Source Cancelled M. pneumoniae (PCR) Cancelled 12/04/22 06:11 WBC 7.26 RBC 3.99 Hgb 12.6 Hct 37.0 MCV 93 MCH 31.6 MCHC 34.1 RDW 12.4 Plt Count 197 MPV 9.6 Immature Gran % 0.7 Neutrophils % 64.8 Lymphocytes % 27.0 Monocytes % 5.2 Eosinophils % 1.9 Basophils % 0.4 Nucleated RBC % 0.0 Absolute Neutrophils 4.70 Absolute Lymphocytes 1.96 Absolute Monocytes 0.38 Absolute Eosinophils 0.14 Absolute Basophils 0.03 Sodium Potassium Chloride Carbon Dioxide Anion Gap BUN Creatinine Est GFR (CKD-EPI 2020) Glucose Hemoglobin A1c Calcium Magnesium M. pneumoniae Source M. pneumoniae (PCR) Time Spent with Patient Time Spent with Patient: 35-49 minutes Time was spent: preparing to see the patient(eg.review tests), obtaining and/or reviewing separately otained hiistory, ordering medications,tests, procedures, indepentently interpreting results and counseling the patient
--- NOTE | 2022-12-04 16:51 | CHAPLAIN ---
Gerardo was in bed when I visited. She had a spinal injury in 2018 and can not use her arms. Her and adult children provide her care at home. We had a brief conversation. She thanked me for visiting but did not seem interested in further conversation.
[2022-12-04 23:37] LABS: Legionella Ag Detection Urine Negative (Negative)
[2022-12-05] VITALS: BP 172/79; PULSE 91; RESP 20; TEMP 36.8; O2SAT 94
[2022-12-05 04:25] VITALS: BP 189/81; PULSE 82; RESP 18; TEMP 36.4; O2SAT 94
[2022-12-05] MEDS: Mylanta Suspension 30 ML CUP PO (05:40)
[2022-12-05] MEDS: Ondansetron 4 MG/2 ML VIAL IVP ×2 (06:23→12:42)
[2022-12-05 07:12] VITALS: BP 105/54; PULSE 80; RESP 18; TEMP 37; O2SAT 94
[2022-12-05 08:00] VITALS: RESP 18; O2SAT 93
[2022-12-05] MEDS: Lisinopril 10 MG TAB PO (08:17)
[2022-12-05] MEDS: cefTRIAXone 1 GM/50 ML BAG IVPB (08:17)
[2022-12-05] MEDS: AZITHROMYCIN 250 MG in Normal Saline 250 ML IVPB (09:11)
[2022-12-05 11:05] VITALS: BP 102/59; PULSE 81; RESP 18; TEMP 37.3; O2SAT 94
[2022-12-05] MEDS: Enoxaparin 40 MG/0.4 ML SYR SC (12:38)
--- NOTE | 2022-12-05 12:56 | CMDISCH_ITS ---
- If Service Date Differs Date of service: 12/05/22 Time of Service: 12:56 LACE Index Scoring Tool - Questions: Length of Stay (in days): 2 Acuity (Admit via E.D.?): Yes Comorbidities: Diabetes w/o Complication, Any Tumor E.D. Visits: 1 - Answers: Total Score: 9 Risk of Readmission: Low Risk Care Management Discharge Reason for Hospitalization: Left Lower Lobe Pneumonia Discharge Plan: Gerardo will be discharged home, with a resumption of Home Healt h services when medically cleared by provider. Gerardo will be transported home by ambulance coordinated by CM when ready. CM will continue to support patient and discharge planning needs. Patient/Family Education Needs: Review discharge instructions, discuss Ask Me Three. Services Needed at Discharge: Home Health Care Services (Resumption), [facility] ([facility])
--- NOTE | 2022-12-05 13:22 | W.PM.DS.N ---
Date of service: 12/05/22 Time of Service: 13:22 DS: Diagnosis Discharge Diagnosis (1) Acute dehydration: Status: Resolved (2) Diabetes mellitus: Status: Chronic (3) Neurogenic bladder: Status: Chronic (4) Paraplegia: Status: Chronic (5) Suprapubic catheter: Status: Chronic (6) Pneumonia: Status: Acute (7) Acute UTI: Status: Acute Discharge Plan Disposition Patient Disposition: Home W/Home Health Services Condition: Stable Discharge Details Reason For Visit: Left Lower Lobe Pneumonia Admit Date/Time: 12/03/22 11:26 Admit Provider: Ramy Bey Attending Provider: Ramy Bey [facility] Hospital Course: This is a 82-year-old female history of paraplegia, neurogenic bladder, history of recurrent UTIs presents with generalized fatigue feeling unwell over several days, also had decreased p.o. intake.?Work up in the ED concerning for dehydration, possible pneumonia possible UTI.? Patient was admitted to the medical floor and started on ceftriaxone and azithromycin while cultures pending. she remained afebrile. procal negative and no respiratory symptoms. she began eating and drinking. She has completed 3 day of ceftriaxone and is safe for discharge to home. she is being discharged by ground EMS to home with resumption of home health services. discharge discussed with Dr Curtis? Home Meds and New Rx's Prescriptions: New ondansetron 4 mg tablet,disintegrating 4 mg PO Q8H PRNQty: 10 0RF Continued Myrbetriq 25 mg tablet extended release 24 hr 25 mg PO DAILY Qty: 90 3RF magnesium oxide 400 mg magnesium capsule 400 mg PO BID AZO D-Mannose 500 mg capsule 1,000 mg PO BID cyanocobalamin (vitamin B-12) 1,000 mcg capsule 1,000 mcg PO DAILY lidocaine 5 % cream 1 applic topical TID PRN calcium carbonate-vitamin D3 [Calcium 500 With D] 500 mg(1,250mg) -400 unit Tablet 1 tab PO BID gabapentin 600 mg tablet 600 mg PO HS Rx Instructions: (in addition 400mg BID @ ) Renacidin 1,980.6 mg-59.4 mg-980.4mg/30mL solution 30 ml irrigation DAILY levothyroxine 75 mcg tablet 75 mcg PO QAM sennosides [senna] 8.6 mg Tablet 8.6 mg PO QHS omeprazole 20 mg Tablet,Delayed Release (Dr/Ec) 20 mg PO DAILY multivitamin Tablet 1 tab PO DAILY metformin 500 mg Tablet 1,000 mg PO BID atorvastatin 10 mg Tablet 10 mg PO HS aspirin 81 mg Tablet,Delayed Release (Dr/Ec) 81 mg PO DAILY baclofen 10 mg tablet 20 mg PO TID acetaminophen 500 mg tablet 1,000 mg PO TID PRN gabapentin [Neurontin] 400 mg capsule 400 mg PO BID Rx Instructions: @ 08 & noon (in addition to 600mg qHS) Discharge Instructions Instructions: Dehydration (DC) Stand Alone Forms: Nursing Discharge Form Referrals: Nida Farooq [Primary Care Provider] - (Message left at office for them to call you to set up appointment for 1-2 weeks. Please call them if you do not hear from them by Thursday ) Activity:: Activity as Tolerated Equipment/Supplies:: No Equipment Needed Diet:: As Tolerated Discharge Orders Discharge Orders: Discharge Order (Routine); Ordered 12/05/22 Ordered By: Kae Guo DS: Summary Time Spent with Patient providing and/or coordinating discharge services: Greater than 30 minutes Status at Discharge Functional status at discharge: independent ambulation Overall status at discharge: patient is back to baseline Mental Status: mental status grossly normal Speech and Movement: speech and movement normal Mood: congruent mood Affect: normal affect Exam Const General: cooperative, comfortable and no acute distress Nutritional Appearance: obese Orientation: alert, awake and oriented x3 HENMT Head: normal to inspection and normocephalic Mouth: oral mucosae normal Chest Chest: normal inspection of the chest Resp Effort & Inspection: normal respiratory effort Auscultation: clear to auscultation bilaterally, no rhonchi and no wheezes Cardio Rate: regular rate Rhythm: regular rhythm Heart Sounds: no murmurs GI Inspection: normal to inspection Extrem General: abnormal to inspection (flacid lower, upper extremities partial with hands) Psych Mental Status: mental status grossly normal Speech and Movement: speech and movement normal Mood: congruent mood Affect: normal affect DS: Data Vitals/I&O Vitals and I&O: Vital Signs Temperature 37.3 C 12/05/22 11:05 Temperature Source Tympanic 12/05/22 11:05 Pulse 81 12/05/22 11:05 Pulse Rhythm Regular 12/05/22 08:00 Pulse 81 12/03/22 12:10 Respiratory Rate 18 12/05/22 11:05 Respiratory Effort Normal, Non-Labored 12/05/22 08:00 Respiratory Depth Normal 12/05/22 08:00 Respiratory Pattern Normal 12/05/22 08:00 Blood Pressure 102/59 L 12/05/22 11:05 Blood Pressure Mean 103 12/03/22 11:21 Blood Pressure Position Supine 12/03/22 07:10 Pulse Oximetry 94 12/05/22 11:05 Oxygen Delivery Method Room Air 12/05/22 11:05 Oxygen Flow Rate 0 12/05/22 11:05 Pain Level 0 12/05/22 04:25 Comment CC notified of BP. 12/05/22 04:25 Intake & Output 12/04/22 12/05/22 12/05/22 23:59 11:59 23:59 Intake Total 310 / 1370 410 / 770 360 / 770 Output Total 1400 / 3550 800 / 900 100 / 900 Balance -1090 / -2180 -390 / -130 260 / -130 Intake: IV 250 / 1310 10 / 310 300 / 310 Oral 60 / 60 400 / 460 60 / 460 Output: Urine 1400 / 3550 800 / 900 100 / 900 Other: Urine Color Yellow Pale Yellow Yellow Urine Appearance Clear Clear Clear Sediment Sediment Urine Odor None Voiding Methods Indwelling Catheter Data Completed and Pending Labs on day of discharge: Labs from last 24 hours 12/03/22 14:00 Urine Legionella Ag Negative Preliminary micro results at discharge 12/03/22 12:20 Blood Culture - Preliminary Blood NO GROWTH 24 HOURS 12/03/22 12:10 Blood Culture - Preliminary Blood NO GROWTH 24 HOURS PFSH All Active Problems (Updated 12/03/22 @ 18:28 by Lilly Merritt NP) Discharge planning issues (Acute) DVT prophylaxis (Acute) Pneumonia (Acute) Acute UTI (Acute) Spinal stenosis, lumbar (Acute) Primary malignant neoplasm of breast (Acute) Neurogenic claudication (Acute) Hypothyroidism (Chronic) Hypertension (Chronic) Constipation due to neurogenic bowel (Acute) Benign neoplasm of colon (Acute) Autonomic dysreflexia (Acute) Arm edema (Acute) Nail dystrophy (Acute) UTI (urinary tract infection) (Acute) Transaminitis (Acute) Bladder spasm (Acute) COVID-19 ruled out (Acute) Neuropathic pain of finger of right hand (Acute) Fungal dermatitis (Acute) Chronic suprapubic catheter (Chronic) Hypomagnesemia (Acute) Acute UTI (Acute) Infiltrate of lung present on imaging of chest (Acute) UTI (urinary tract infection) (Acute) Hyperlipemia (Chronic) Intracranial aneurysm (Chronic) AAA (abdominal aortic aneurysm) (Chronic) Suprapubic catheter (Chronic) Diabetes mellitus (Chronic) Neurogenic bladder (Chronic) Paraplegia (Chronic) Medical History (Updated 12/03/22 @ 18:28 by Lilly Merritt NP) Cervical disc disorder CTS (carpal tunnel syndrome) left wrist ESBL (extended spectrum beta-lactamase) producing bacteria infection History of breast cancer Interstitial lung disease Pressure ulcer Surgical History (Updated 10/06/22 @ 08:42 by Libertad Torre RN) H/O breast surgery H/O cervical spine surgery S/P cholecystectomy S/P rotator cuff repair S/P trigger finger release S/P tubal ligation Social History (Updated 08/25/22 @ 22:25 by Kait Cabrera RN) Smoking/Tobacco Use Status: Former Tobacco Use Quit Date: 08/17/06 Pack-years: 40 Smoking risk assessment performed?: Yes Alcohol Intake: never Drug use: Never Substance use type: does not use Current gender identity: female Do you feel safe at home: Yes Do you feel safe in your relationship?: Yes Time Spent with Patient Time Spent with Patient: <45 minutes Time was spent: preparing to see the patient(eg.review tests), obtaining and/or reviewing separately otained hiistory, ordering medications,tests, procedures, indepentently interpreting results, counseling the patient and care coordination
[2022-12-05 14:58] VITALS: BP 170/80; PULSE 84; RESP 18; TEMP 37.4; O2SAT 94
--- NOTE | 2022-12-05 15:58 | NUR.NOTE ---
1547 Patient was P/U by transportation to be brought home via ambulance. DC instructions were reviewed with patient & all questions & or concerns were addressed accordingly. PIV in RFA was removed & secured. Patient was cleaned & dressed as requested. All belongings were bagged & sent with patient. Family was called at [phone] & informed of arrival time. Nursing Note:
[2022-12-06 16:24] LABS: Mycoplasma Pneumoniae PCR Negative; Specimen source Nasal
[2022-12-07 14:49] LABS: Streptococcus Pneumoniae Ag, U Negative (Negative)
== END 2022-12-05 15:51 | disposition home health service (06) | DRG 689 ==
LOC: ER 11:46 → MS 12:27
PROVIDERS: Nurse Practitioner Family; Admitting Provider Internal Medicine; Emergency Provider Emergency Medicine; PCP Nurse Practitioner Family; Visit Provider Internal Medicine
DX: N39.0 Urinary tract infection, site not specified (principal); J18.9 Pneumonia, unspecified organism; G82.20 Paraplegia, unspecified; K59.2 Neurogenic bowel, not elsewhere classified; E86.0 Dehydration; N31.9 Neuromuscular dysfunction of bladder, unspecified; Z93.51 Cutaneous-vesicostomy status; Z87.440 Personal history of urinary (tract) infections; M48.062 Spinal stenosis, lumbar region with neurogenic claudication; Z85.3 Personal history of malignant neoplasm of breast; E03.9 Hypothyroidism, unspecified; I10 Essential (primary) hypertension; G90.4 Autonomic dysreflexia; R74.01 Elevation of levels of liver transaminase levels; E83.42 Hypomagnesemia; E78.5 Hyperlipidemia, unspecified; I71.40 Abdominal aortic aneurysm, without rupture, unspecified; E11.9 Type 2 diabetes mellitus without complications; Z87.891 Personal history of nicotine dependence
CPT/HCPCS: 36410; 36415; 76770; 80048; 80053; 84145; 87040; 87081; 87449; 87637; 93005; 96361; 96365; 96367; 99285; J1650; 71045; 81003; 81015; 83036; 83735; 83880; 85025; 87086; 87581; 87899; 93010; 94667; 94668; 99222; 99233; 99239; J0456; J0696; J2405

== ENCOUNTER 2022-12-18 11:57 | Emergency (ER) | payer OTHER, SELFPAY ==
[2022-12-18 11:58] VITALS: BP 150/64; PULSE 72; RESP 16; TEMP 36.6; O2SAT 93
--- NOTE | 2022-12-18 13:39 | ED.GENADUL_ITS ---
Discharge Plan Disposition Patient Disposition: Home Condition: Stable Discharge Details Clinical Impression: Otitis externa of right ear, Otitis media of right ear Primary Care Provider: Nida Farooq ED Provider: Itzel Greene Home Meds and New Rx's Prescriptions: Continued Myrbetriq 25 mg tablet extended release 24 hr 25 mg PO DAILY Qty: 90 3RF magnesium oxide 400 mg magnesium capsule 400 mg PO BID AZO D-Mannose 500 mg capsule 1,000 mg PO BID cyanocobalamin (vitamin B-12) 1,000 mcg capsule 1,000 mcg PO DAILY lidocaine 5 % cream 1 applic topical TID PRN calcium carbonate-vitamin D3 [Calcium 500 With D] 500 mg(1,250mg) -400 unit Tablet 1 tab PO BID gabapentin 600 mg tablet 600 mg PO HS Rx Instructions: (in addition 400mg BID @ ,) Renacidin 1,980.6 mg-59.4 mg-980.4mg/30mL solution 30 ml irrigation DAILY levothyroxine 75 mcg tablet 75 mcg PO QAM sennosides [senna] 8.6 mg Tablet 8.6 mg PO QHS omeprazole 20 mg Tablet,Delayed Release (Dr/Ec) 20 mg PO DAILY ondansetron 4 mg tablet,disintegrating 4 mg PO Q8H PRNQty: 10 0RF multivitamin Tablet 1 tab PO DAILY metformin 500 mg Tablet 1,000 mg PO BID atorvastatin 10 mg Tablet 10 mg PO HS aspirin 81 mg Tablet,Delayed Release (Dr/Ec) 81 mg PO DAILY baclofen 10 mg tablet 20 mg PO TID acetaminophen 500 mg tablet 1,000 mg PO TID PRN gabapentin [Neurontin] 400 mg capsule 400 mg PO BID Rx Instructions: @ 08 & noon (in addition to 600mg qHS) Discharge Instructions Instructions: Otitis Externa (ED), Ear Infection (ED) Additional Instructions: You appear to have an infection of your external ear called otitis externa. You were given Cipro HC otic eardrops to apply 3 drops in your right ear twice daily for the next 10 days. Take your oral antibiotic prescription Augmentin as directed until finished for a possible middle ear infection called otitis media. Follow-up with your scheduled appointment with your primary care doctor on Thursday and for referral to ENT if her symptoms do not improve or worsen. Return immediately to the emergency department if you develop any worsening or new concerning symptoms. Referrals: Sharan Mota MD [ [facility] STAFF PHYSICIAN] - Discharge Data Discharge Date/Time-TO BE ENTERED AT DEPARTURE: 12/18/22 16:42 Discharge Physician: Itzel Greene Medical Decision Making 82yo F w/ a h/o?paraplegia, neurogenic bladder, history of recurrent UTIs, chronic suprapubic catheter, hypertension, hypothyroidism, breast cancer pre sents for right ear pain for the past 2 days. Patient appears comfortable and nontoxic. She is paraplegic with contracted extremities. She has what appears to be external auditory canal edema, erythema with pain with pulling on auricle. There is liquidy and soft cerumen noted within the ear canal but no purulent discharge. Full view of TM is obstructed by some narrowing of the canal but able to see most of it which appears dull, erythematous with serosanguineous fluid behind the TM. There is no complaints of left ear pain. She has no tenderness, edema or erythema noted to the right mastoid. No submandibular swelling, drooling or trismus. Fingerstick glucose reassuring at 125. Discussed with and sister at bedside that patient needs antibiotic eardrops for suspected otitis externa. 3 drops of Cipro were placed in her right ear and she was given the bottle to go. History and presentation at this time does not appear consistent with malignant otitis externa but considering her history of diabetes, recommended to follow-up with her primary care doctor on her scheduled appointment on Thursday and for referral to ENT if needed. Do not see an indication for antifungals at this time. Advised to finish the Augmentin for possible otitis media and use the Cipro ear drops as directed until finished. Usual and customary return precautions given prior to discharge. Medical Records Medical records reviewed: Yes I reviewed the patient's medical records. HPI General Mode of arrival: ambulatory . Date/Time Provider Initiated Documentation: 12/18/22 12:02 . Limitations to Documentation: no limitations . Information obtained by: patient . HPI Narrative: Pt is an 82yo F w/ a h/o?paraplegia, neurogenic bladder, history of recurrent UTIs, chronic suprapubic catheter, hypertension, hypothyroidism, breast cancer presents for right ear pain for the past 2 days now with worsening pain today. at bedside states that she went to an urgent care yesterday and diagnosed with an ear infection and started on Augmentin of which she has taken 2 doses. She took 2 tabs of Tylenol at 3:00 this morning but has not taken any other pain medication since then. She states her sugars have been under control. She denies any neck pain, sore throat or difficulty swallowing. Related Data Home Medications Medication Instructions Recorded Confirmed aspirin 81 mg tablet,delayed 81 mg PO DAILY 06/23/18 12/03/22 release atorvastatin 10 mg tablet 10 mg PO HS 06/23/18 12/03/22 metformin 500 mg tablet 1,000 mg PO BID 06/23/18 12/03/22 multivitamin 1 tab PO DAILY 06/23/18 12/03/22 calcium carbonate 500 mg-vitamin 1 tab PO BID 06/16/19 12/03/22 D3 10 mcg (400 unit) tablet (Calcium 500 With D) citric ac 1980.6 mg-glucono 59.4 30 ml irrigation DAILY 12/21/19 12/03/22 mg-mag carb 980.4 mg/30 mL irrig.soln (Renacidin) baclofen 10 mg tablet 20 mg PO TID 06/24/22 12/03/22 mirabegron 25 mg tablet,extended 25 mg PO DAILY #90 tabs 06/24/22 12/03/22 release 24 hr (Myrbetriq) acetaminophen 500 mg tablet 1,000 mg PO TID PRN 08/25/22 12/03/22 cyanocobalamin (vitamin B-12) 1,000 mcg PO DAILY 08/25/22 12/03/22 1,000 mcg capsule d-mannose 500 mg capsule (AZO 1,000 mg PO BID 08/25/22 12/03/22 D-Mannose) gabapentin 400 mg capsule 400 mg PO BID 08/25/22 12/03/22 (Neurontin) gabapentin 600 mg tablet 600 mg PO HS 08/25/22 12/03/22 lidocaine 5 % topical cream 1 applic topical TID PRN 08/25/22 12/03/22 magnesium oxide 400 mg PO BID 08/25/22 12/03/22 levothyroxine 75 mcg tablet 75 mcg PO QAM 12/03/22 12/03/22 omeprazole 20 mg tablet,delayed 20 mg PO DAILY 12/03/22 12/03/22 release sennosides 8.6 mg tablet (senna) 8.6 mg PO QHS 12/03/22 12/03/22 ondansetron 4 mg disintegrating 4 mg PO Q8H PRN #10 tabs 12/05/22 tablet Previous Rx's Medication Instructions Recorded mirabegron 25 mg tablet,extended 25 mg PO DAILY #90 tabs 06/24/22 release 24 hr (Myrbetriq) ondansetron 4 mg disintegrating 4 mg PO Q8H PRN #10 tabs 12/05/22 tablet Allergies Allergy/AdvReac Type Severity Reaction Status Date / Time ibuprofen AdvReac Mild Nausea Unverified 12/03/22 08:57 General Stated Complaint: EarProblem BEVERLY: 4 Review of Systems All systems reviewed & are unremarkable except as noted in HPI and below Constitutional Constitutional: Reports as per HPI, Denies chills and Denies fever(s) Eyes Eyes: Denies blurry vision ENT Ears, Nose, Mouth, and Throat: Denies dizziness, Reports otalgia, Denies sore throat and Denies throat swelling Cardiovascular Cardiovascular: Denies chest pain and Denies dyspnea Respiratory Respiratory: Denies cough and Denies dyspnea Gastrointestinal Gastrointestinal: Denies abdominal pain, Denies diarrhea and Denies vomiting Genitourinary Genitourinary: Denies hematuria and Denies dysuria Musculoskeletal Musculoskeletal: Denies back pain and Denies numbness Integumentary/Breasts Skin/Breast: Denies lesions and Denies rash Neurologic Neurologic: Denies dizziness, Denies localized weakness and Denies numbness Allergic/Immunologic Allergic/Immunologic: Denies throat swelling PFSH All Active Problems (Updated 12/18/22 @ 14:27 by Itzel Greene DO) Otitis externa of right ear (Acute) Otitis media of right ear (Acute) Pneumonia (Acute) Acute UTI (Acute) Spinal stenosis, lumbar (Acute) Primary malignant neoplasm of breast (Acute) Neurogenic claudication (Acute) Hypothyroidism (Chronic) Hypertension (Chronic) Constipation due to neurogenic bowel (Acute) Benign neoplasm of colon (Acute) Autonomic dysreflexia (Acute) Arm edema (Acute) Nail dystrophy (Acute) UTI (urinary tract infection) (Acute) Transaminitis (Acute) Bladder spasm (Acute) COVID-19 ruled out (Acute) Neuropathic pain of finger of right hand (Acute) Fungal dermatitis (Acute) Chronic suprapubic catheter (Chronic) Hypomagnesemia (Acute) Acute UTI (Acute) Infiltrate of lung present on imaging of chest (Acute) UTI (urinary tract infection) (Acute) Hyperlipemia (Chronic) Intracranial aneurysm (Chronic) AAA (abdominal aortic aneurysm) (Chronic) Suprapubic catheter (Chronic) Diabetes mellitus (Chronic) Neurogenic bladder (Chronic) Paraplegia (Chronic) Medical History (Updated 12/18/22 @ 14:27 by Itzel Greene DO) Cervical disc disorder CTS (carpal tunnel syndrome) left wrist ESBL (extended spectrum beta-lactamase) producing bacteria infection History of breast cancer Interstitial lung disease Pressure ulcer Surgical History (Updated 10/06/22 @ 08:42 by Libertad Torre RN) H/O breast surgery H/O cervical spine surgery S/P cholecystectomy S/P rotator cuff repair S/P trigger finger release S/P tubal ligation Social History (Updated 08/25/22 @ 22:25 by Kait Cabrera RN) Smoking/Tobacco Use Status: Former Tobacco Use Quit Date: 08/17/06 Pack-years: 40 Smoking risk assessment performed?: Yes Alcohol Intake: never Drug use: Never Substance use type: does not use Current gender identity: female Do you feel safe at home: Yes Do you feel safe in your relationship?: Yes Exam Const General: cooperative and no acute distress Orientation: alert, awake and oriented x3 HENMT Head: normal to inspection Ears: hearing grossly normal bilaterally, mastoids normal bilaterally not edematous, nontender and no erythema, EAC abnormal erythema on the right, edema on the right, EAC tenderness on the right and otic discharge (liquidy, soft cerumen, no purulent discharge) and TM abnormal wth effusion serosanguinous on the right, erythematous on the right, with fluid behind the TM on the right and with loss of landmarks on the right Face and sinus: normal facial exam Mouth: oral mucosae normal Eyes General: appearance normal, both eyes and all related structures Neck Neck: normal visual inspection, no meningeal signs, trachea midline, supple and No submandibular swelling Resp Effort & Inspection: normal respiratory effort and able to speak in complete sentences Cardio Rate: regular rate Rhythm: regular rhythm Skin General skin exam: no rashes or lesions noted Neuro General: patient alert, patient awake and patient oriented x3 Cognition: normal cognition Speech: abnormal speech stuttering (baseline) Extrem Other: Atrophic appearing bilateral lower extremities. Contracted upper extremities Psych Appearance: grossly normal Mental Status: mental status grossly normal Affect: normal affect Course Vital Signs Vital signs: Vital Signs Temperature 97.9 F 12/18/22 11:58 Pulse 72 12/18/22 11:58 Respiratory Rate 16 12/18/22 11:58 Blood Pressure 150/64 H 12/18/22 11:58 Pulse Oximetry 93 12/18/22 11:58 Temperature 97.9 F 12/18/22 11:58 Temperature Source Oral 12/18/22 11:58 Pulse 72 12/18/22 11:58 Respiratory Rate 16 12/18/22 11:58 Blood Pressure 150/64 H 12/18/22 11:58 Blood Pressure Position Sitting 12/18/22 11:58 Pulse Oximetry 93 12/18/22 11:58 Oxygen Delivery Method Room Air 12/18/22 11:58 Oxygen Flow Rate 0 12/18/22 11:58 Pain Level 8 12/18/22 11:58
[2022-12-18] MEDS: Ibuprofen 600 MG TAB PO (14:17)
[2022-12-18] MEDS: Acetaminophen 500 MG TAB 1000 MG PO (14:17)
[2022-12-18 15:42] LABS: Glucose 125 mg/dL (74-106)
== END 2022-12-18 16:42 | disposition home or self-care (01) ==
LOC: ER 14:47
PROVIDERS: Emergency Provider Physician Assistant; PCP Nurse Practitioner Family
DX: H66.91 Otitis media, unspecified, right ear (principal); H60.91 Unspecified otitis externa, right ear; E11.9 Type 2 diabetes mellitus without complications
CPT/HCPCS: 82947; 99283; 99284

== ENCOUNTER 2023-01-23 16:06 | Inpatient (IN) | payer OTHER, SELFPAY ==
[2023-01-23] VITALS (11 sets, daily range): BP systolic 112–176; BP diastolic 77–81; PULSE 81–89; RESP 4–24; TEMP 36.8–36.9; O2SAT 91–99
--- NOTE | 2023-01-23 16:00 | DI.RAD_ITS ---
Exam(s) XR CHEST 2V PA LATERAL EXAM: XR CHEST 2V PA LATERAL CLINICAL HISTORY: SOB, Productive cough TECHNIQUE: 2D digital imaging was performed of the chest. Two images were obtained. AP and lateral views were obtained. COMPARISON: CR XR CHEST 1V IN DI DEPT from 12/03/2022 FINDINGS: The lateral view is suboptimal due to patient positioning. MEDIASTINUM: Normal. HEART: Cardiomegaly. PULMONARY VASCULATURE: There is pulmonary venous congestion. There is mild prominence of the interst itium which may represent edema. LUNGS: No focal consolidating infiltrates are seen. PLEURAL SPACE: No pleural effusion or pneumothorax. BONE:Within normal limits for the patient's age. Cervical spinal surgery. OTHER FINDINGS:Normal. IMPRESSION: Cardiomegaly and mild pulmonary venous congestion. No focal consolidating infiltrates. DATA REPOSITORY: RADIATION DOSE DELIVERED:
--- NOTE | 2023-01-23 16:16 | W.ED.GENAD ---
Discharge Plan Disposition Patient Disposition: Admit to [facility] Condition: Stable Discharge Details Clinical Impression: Pneumonia, Shortness of breath Admit Date/Time: 01/23/23 19:16 Admit Provider: Armen Parker Attending Provider: Armen Parker Primary Care Provider: Nida Farooq ED Provider: Rose Gomez Medical Decision Making 82-year-old female with past medical history of paraplegia, neurogenic bladder, diabetes mellitus suprapubic catheter AAA, hyperlipidemia acute kidney injury and pneumonia in the last couple months presents with chief complaint of shortness of breath and productive cough which worsened today. She is on room air satting 91%-93% with a productive cough. She reports that she is unable to cough it up completely. Denies any chest pain no nausea vomiting. She does endorse diarrhea which has been ongoing. She does have contractures noted to her extremities. She is alert and oriented x3. She was given an albuterol nebulizer prior to arrival by EMS. On review of medications does appear that she is on levofloxacin which was filled 4 days ago. Upon arrival patient is satting 91% on room air she does have a productive cough DuoNeb ordered Solu-Medrol 125 and labs including blood cultures and a lactate chest x-ray. Differential diagnosis includes but not limited to pneumonia, CHF, lung disease exacerbation. staffing director unable to secure IV access, requesting PO steroids, Prednisone 60mg PO ordered. CBC shows no leukocytosis RBCs 3.48 which is at patient's baseline, lactate 2.3, sodium 130, potassium 4.9 chloride 96 glucose 109, fluvid is pending at this time. Patient placed on 2L n/C of o2, remains satting in the low 90's. Lactate 2.3, liter of normal saline order Rocephin 1 g and doxycycline 100 mg IV piggyback. Fluid is negative, chest x-ray shows worsening of congestive changes and questionable pleural effusions bilaterally. Will page hospitalist due to shortness of breath, possible failed outpatient treatment for pneumonia proBNP added onto labs. Spoke with Dr. Tomlin who is on-call for hospitalist he agrees to accept patient for admission I will place holding orders. Awaiting BNP. BNP within normal limits. Presumed Pneumonia or worsening interstitial lung disease. Pending admission for further care and evaluation. This text was generated using [employer] system, please disregard any oddities of phrase or misspellings. Medical Records Medical records reviewed: Yes I reviewed the patient's medical records. Imaging Data Radiologic Study: Imaging: X-Ray Radiologist's impression: Age: 82 years old Clinical indication: Cough and shortness of breath; Additional info: Cough, SOB TECHNIQUE: Imaging protocol: Radiologic exam of the chest. Views: 2 views. COMPARISON: CR XR CHEST 1V IN DI DEPT 12/03/2022 8:48 AM FINDINGS: Lungs: There is moderate diffuse pulmonary vascular and interstitial prominence, worsened from the prior study. Mild subpleural consolidation in the lateral left lung appears stable. Pleural spaces: Blunting of the costophrenic angle suggests small bilateral pleural effusions. No pneumothorax. Heart/Mediastinum: Unremarkable. No cardiomegaly. Bones/joints: Degenerative changes of the spine and shoulders noted. Orthopedic hardware noted in the cervical spine. IMPRESSION: Mild interval worsening of congestive changes Thank you for allowing us to participate in the care of your patient. Lab Data Lab results reviewed: Yes I reviewed the patient's lab results. Labs: 01/23/23 17:50 Blood Blood Culture - Pending 01/23/23 17:11 Blood Blood Culture - Pending Laboratory Tests Range/Units 01/23/23 01/23/23 01/23/23 17:11 17:11 17:13 WBC (4.4-10.8) 10^3/uL 9.54 RBC (3.93-5.22) 10^6/uL 3.48 L Hgb (11.2-15.7) g/dL 11.3 Hct (36.0-46.0) % 34.3 L MCV (80-95) fL 99 H MCH (27.0-33.0) pg 32.5 MCHC (32.0-36.0) % 32.9 RDW (11.7-14.6) % 13.2 Plt Count (130-400) 10^3/uL 183 MPV (8.0-11.0) fL 10.3 Immature Gran % 1.0 Neutrophils % 46.9 Lymphocytes % 44.4 Monocytes % 5.5 Eosinophils % 1.7 Basophils % 0.5 Nucleated RBC % (0.0-0.3) % 0.0 Absolute Neutrophils (1.2-6.7) 10^3/uL 4.47 Absolute Lymphocytes (1.2-3.4) 10^3/uL 4.24 H Absolute Monocytes (0.1-0.8) 10^3/uL 0.52 Absolute Eosinophils (0.0-0.7) 10^3/uL 0.16 Absolute Basophils (0.0-0.2) 10^3/uL 0.05 VBG Lactate (0.6-1.4) mmol/L Sodium (136-145) mmol/L 130 L Potassium (3.5-5.1) mmol/L 4.9 Chloride (98-107) mmol/L 96 L Carbon Dioxide (21.0-32.0) mmol/L 26.3 Anion Gap (3-11) mmol/L 7.7 BUN (7-18) mg/dL 16 Creatinine (0.55-1.02) mg/dL 0.8 Est GFR (CKD-EPI 2020) (mL/min/1.73m2) 73.52 Glucose (74-106) mg/dL 109 H Calcium (8.5-10.1) mg/dL 9.2 Magnesium (1.8-2.4) mg/dL 1.9 Total Bilirubin (0.2-1.0) mg/dL 0.4 AST (15-37) U/L 27 ALT (14-59) U/L 41 Alkaline Phosphatase (46-116) U/L 61 Total Protein (6.4-8.2) g/dL 7.3 Albumin (3.4-5.0) g/dL 3.5 COVID-19 Source Nasopharynx SARS-CoV-2 (PCR) (Negative) Negative Influenza Type A (PCR) (Negative) Negative Influenza Type B (PCR) (Negative) Negative RSV (PCR) (Negative) Negative Range/Units 01/23/23 17:50 WBC (4.4-10.8) 10^3/uL RBC (3.93-5.22) 10^6/uL Hgb (11.2-15.7) g/dL Hct (36.0-46.0) % MCV (80-95) fL MCH (27.0-33.0) pg MCHC (32.0-36.0) % RDW (11.7-14.6) % Plt Count (130-400) 10^3/uL MPV (8.0-11.0) fL Immature Gran % Neutrophils % Lymphocytes % Monocytes % Eosinophils % Basophils % Nucleated RBC % (0.0-0.3) % Absolute Neutrophils (1.2-6.7) 10^3/uL Absolute Lymphocytes (1.2-3.4) 10^3/uL Absolute Monocytes (0.1-0.8) 10^3/uL Absolute Eosinophils (0.0-0.7) 10^3/uL Absolute Basophils (0.0-0.2) 10^3/uL VBG Lactate (0.6-1.4) mmol/L 2.3 H* Sodium (136-145) mmol/L Potassium (3.5-5.1) mmol/L Chloride (98-107) mmol/L Carbon Dioxide (21.0-32.0) mmol/L Anion Gap (3-11) mmol/L BUN (7-18) mg/dL Creatinine (0.55-1.02) mg/dL Est GFR (CKD-EPI 2020) (mL/min/1.73m2) Glucose (74-106) mg/dL Calcium (8.5-10.1) mg/dL Magnesium (1.8-2.4) mg/dL Total Bilirubin (0.2-1.0) mg/dL AST (15-37) U/L ALT (14-59) U/L Alkaline Phosphatase (46-116) U/L Total Protein (6.4-8.2) g/dL Albumin (3.4-5.0) g/dL COVID-19 Source SARS-CoV-2 (PCR) (Negative) Influenza Type A (PCR) (Negative) Influenza Type B (PCR) (Negative) RSV (PCR) (Negative) HPI General Mode of arrival: EMS. Date/Time Provider Initiated Documentation: 01/23/23 16:07. Limitations to Documentation: no limitations and physical limitation. Information obtained by: patient, EMS, RN notes reviewed and old records reviewed. HPI Narrative: 82-year-old female with past medical history of paraplegia, neurogenic bladder, diabetes mellitus suprapubic catheter AAA, hyperlipidemia acute kidney injury and pneumonia in the last couple months presents with chief complaint of shortness of breath and productive cough which worsened today. She is on room air satting 93% with a productive cough. She reports that she is unable to cough it up completely. Denies any chest pain no nausea vomiting. She does endorse diarrhea which has been ongoing. She does have contractures noted to her extremities. She is alert and oriented x3. She was given an albuterol nebulizer prior to arrival by EMS. On review of medications does appear that she is on levofloxacin which was filled 4 days ago. Related Data Home Medications Medication Instructions Recorded Confirmed aspirin 81 mg tablet,delayed 81 mg PO DAILY 06/23/18 01/23/23 release atorvastatin 10 mg tablet 10 mg PO HS 06/23/18 01/23/23 metformin 500 mg tablet 1,000 mg PO BID 06/23/18 01/23/23 multivitamin 1 tab PO DAILY 06/23/18 01/23/23 calcium carbonate 500 mg-vitamin 1 tab PO BID 06/16/19 01/23/23 D3 10 mcg (400 unit) tablet (Calcium 500 With D) citric ac 1980.6 mg-glucono 59.4 30 ml irrigation DAILY 12/21/19 01/23/23 mg-mag carb 980.4 mg/30 mL irrig.soln (Renacidin) baclofen 10 mg tablet 20 mg PO TID 06/24/22 01/23/23 mirabegron 25 mg tablet,extended 25 mg PO DAILY #90 tabs 06/24/22 01/23/23 release 24 hr (Myrbetriq) acetaminophen 500 mg tablet 1,000 mg PO TID PRN 08/25/22 01/23/23 cyanocobalamin (vitamin B-12) 1,000 mcg PO DAILY 08/25/22 01/23/23 1,000 mcg capsule d-mannose 500 mg capsule (AZO 1,000 mg PO BID 08/25/22 01/23/23 D-Mannose) gabapentin 400 mg capsule 400 mg PO BID 08/25/22 01/23/23 (Neurontin) gabapentin 600 mg tablet 600 mg PO HS 08/25/22 01/23/23 lidocaine 5 % topical cream 1 applic topical TID PRN 08/25/22 01/23/23 magnesium oxide 400 mg PO BID 08/25/22 01/23/23 levothyroxine 75 mcg tablet 75 mcg PO QAM 12/03/22 01/23/23 omeprazole 20 mg tablet,delayed 20 mg PO DAILY 12/03/22 01/23/23 release sennosides 8.6 mg tablet (senna) 8.6 mg PO QHS 12/03/22 01/23/23 ondansetron 4 mg disintegrating 4 mg PO Q8H PRN #10 tabs 12/05/22 01/23/23 tablet Previous Rx's Medication Instructions Recorded mirabegron 25 mg tablet,extended 25 mg PO DAILY #90 tabs 06/24/22 release 24 hr (Myrbetriq) ondansetron 4 mg disintegrating 4 mg PO Q8H PRN #10 tabs 12/05/22 tablet Allergies Allergy/AdvReac Type Severity Reaction Status Date / Time ibuprofen AdvReac Mild Nausea Unverified 01/23/23 17:32 General Stated Complaint: SOB BEVERLY: 3 Review of Systems All systems reviewed & are unremarkable except as noted in HPI and below Cardiovascular Cardiovascular: Reports as per HPI, Denies chest pain and Reports dyspnea Respiratory Respiratory: Reports cough, Reports excessive phlegm production and Reports dyspnea Gastrointestinal Gastrointestinal: Denies abdominal pain, Reports diarrhea, Denies nausea and Denies vomiting PFSH All Active Problems (Updated 01/23/23 @ 19:46 by Rose Gomez NP) Shortness of breath (Acute) Pneumonia (Acute) Acute UTI (Acute) Spinal stenosis, lumbar (Acute) Primary malignant neoplasm of breast (Acute) Neurogenic claudication (Acute) Hypothyroidism (Chronic) Hypertension (Chronic) Constipation due to neurogenic bowel (Acute) Benign neoplasm of colon (Acute) Autonomic dysreflexia (Acute) Arm edema (Acute) Nail dystrophy (Acute) UTI (urinary tract infection) (Acute) Transaminitis (Acute) Bladder spasm (Acute) COVID-19 ruled out (Acute) Neuropathic pain of finger of right hand (Acute) Fungal dermatitis (Acute) Chronic suprapubic catheter (Chronic) Hypomagnesemia (Acute) Acute UTI (Acute) Infiltrate of lung present on imaging of chest (Acute) UTI (urinary tract infection) (Acute) Hyperlipemia (Chronic) Intracranial aneurysm (Chronic) AAA (abdominal aortic aneurysm) (Chronic) Suprapubic catheter (Chronic) Diabetes mellitus (Chronic) Neurogenic bladder (Chronic) Paraplegia (Chronic) Medical History Cervical disc disorder CTS (carpal tunnel syndrome) left wrist ESBL (extended spectrum beta-lactamase) producing bacteria infection History of breast cancer Interstitial lung disease Pressure ulcer Surgical History H/O breast surgery H/O cervical spine surgery S/P cholecystectomy S/P rotator cuff repair S/P trigger finger release S/P tubal ligation Social History Smoking/Tobacco Use Status: Former Tobacco Use Quit Date: 08/17/06 Pack-years: 40 Smoking risk assessment performed?: Yes Alcohol Intake: never Drug use: Never Substance use type: does not use Current gender identity: female Do you feel safe at home: Yes Do you feel safe in your relationship?: Yes Exam Narrative Exam Narrative: Constitutional: Alert and oriented x3. Appears stated age. Normal body habitus. Head: Normocephalic, no trauma. Eyes: Pupils PERRL, Red reflex noted, EOM's intact. Eyelids symmetrical without lesions, discharge, or swelling. ENT: Bilateral TM's WNL, External ear normal to inspection, no mastoid TTP, swelling, or erythema, Nasal turbinates WNL, no nasal discharge. Normal dentition, Posterior pharynx WNL, no exudate. Chest: RRR, Normal S1, S2, distal pulses intact. Resp: Rhonchi in the bases, productive cough Abdomen: Soft, non-distended, Normoactive bowel sounds all 4 quads. Suprapubic catheter with clear yellow urine noted in the bag. Musculoskeletal: Paraplegic with extremity contractures Skin: No suspicious rashes or lesions. Capillary refill less than 2 sec. Neurologic: Paraplegia at baseline. Hematologic/Lymphatic: No ecchymosis, no lymphadenopathy. Course Vital Signs Vital signs: Vital Signs Temperature 36.8 C 01/23/23 16:09 Pulse 82 01/23/23 16:09 Respiratory Rate 22 01/23/23 16:09 Blood Pressure 112/81 01/23/23 16:09 Pulse Oximetry 91 L 01/23/23 16:09 Temperature 36.8 C 01/23/23 16:09 Temperature Source Oral 01/23/23 16:09 Pulse 82 01/23/23 16:09 Respiratory Rate 22 01/23/23 16:09 Blood Pressure 112/81 01/23/23 16:09 Blood Pressure Position Supine 01/23/23 16:09 Pulse Oximetry 91 L 01/23/23 16:09 Oxygen Delivery Method Room Air 01/23/23 16:09 Oxygen Flow Rate 0 01/23/23 16:09 Procedures EJ/Peripheral Line Arm L: Time Out Performed: No Skin Cleansed in Sterile Fashion: Yes Size (gauge): 20 IV Secured and Dressing Applied: Yes Patient Tolerated Procedure: well and no complications Additional Comments: 20Ga INT Left Forearm
[2023-01-23] MEDS: Albuterol/Ipratropium 3 ML UPD VIAL UPD ×2 (17:19→22:24)
[2023-01-23 17:24] LABS: Absolute Basophil Count 0.05 10^3/uL (0.0-0.2); Absolute Eosinophil Count 0.16 10^3/uL (0.0-0.7); Absolute Lymphocyte Count 4.24 10^3/uL (1.2-3.4); Absolute Monocyte Count 0.52 10^3/uL (0.1-0.8); Absolute Neutrophil Count 4.47 10^3/uL (1.2-6.7); Basophils % 0.5; Eosinophils % 1.7; HCT 34.3 % (36.0-46.0); HGB 11.3 g/dL (11.2-15.7); Lymphocytes % 44.4; MCH 32.5 pg (27.0-33.0); MCHC 32.9 % (32.0-36.0); MCV 99 fL (80-95); MPV 10.3 fL (8.0-11.0); Monocytes % 5.5; Neutrophils % 46.9; Platelet Count 183 10^3/uL (130-400); RBC 3.48 10^6/uL (3.93-5.22); RDW 13.2 % (11.7-14.6); WBC 9.54 10^3/uL (4.4-10.8)
[2023-01-23 17:49] LABS: ALT 41 U/L (14-59); AST 27 U/L (15-37); Albumin 3.5 g/dL (3.4-5.0); Alkaline Phosphatase 61 U/L (46-116); Anion Gap 7.7 mmol/L (3-11); BUN 16 mg/dL (7-18); Bilirubin, Total 0.4 mg/dL (0.2-1.0); CO2 26.3 mmol/L (21.0-32.0); CREATININE 0.8 mg/dL (0.55-1.02); Calcium 9.2 mg/dL (8.5-10.1); Chloride 96 mmol/L (98-107); Estimated GFR 73.52 (mL/min/1.73m2); Glucose 109 mg/dL (74-106); Magnesium 1.9 mg/dL (1.8-2.4); Potassium 4.9 mmol/L (3.5-5.1); Sodium 130 mmol/L (136-145); Total Protein 7.3 g/dL (6.4-8.2)
[2023-01-23 17:56] LABS: Lactate 2.3 mmol/L (0.6-1.4)
--- NOTE | 2023-01-23 17:57 | NUR.NOTE ---
Nursing Note: 2L NC initatied for o2 sat of 90%. Satting at 93% on the 2L NC
[2023-01-23 18:04] LABS: COVID-19 PCR Negative (Negative); Influenza A PCR Negative (Negative); Influenza B PCR Negative (Negative); RSV PCR Negative (Negative)
[2023-01-23 18:05] LABS: Source Nasopharynx
[2023-01-23] MEDS: predniSONE 20 MG TAB 60 MG PO (18:30)
[2023-01-23] MEDS: cefTRIAXone 1 GM/50 ML BAG IVPB (18:49)
[2023-01-23] MEDS: DOXYCYCLINE 100 MG in Normal Saline 100 ML IVPB (18:50)
[2023-01-23] MEDS: Normal Saline 1,000 ML 1000 ML IV (18:50)
--- NOTE | 2023-01-23 19:02 | DI.VRAD_ITS ---
PROCEDURE INFORMATION: Exam: XR Chest Exam date and time: 01/23/2023 6:29 PM Age: 82 years old Clinical indication: Cough and shortness of breath; Additional info: Cough, SOB TECHNIQUE: Imaging protocol: Radiologic exam of the chest. Views: 2 views. COMPARISON: CR XR CHEST 1V IN DI DEPT 12/03/2022 8:48 AM FINDINGS: Lungs: There is moderate diffuse pulmonary vascular and interstitial prominence, worsened from the prior study. Mild subpleural consolidation in the lateral left lung appears stable. Pleural spaces: Blunting of the costophrenic angle suggests small bilateral pleural effusions. No pneumothorax. Heart/Mediastinum: Unremarkable. No cardiomegaly. Bones/joints: Degenerative changes of the spine and shoulders noted. Orthopedic hardware noted in the cervical spine. IMPRESSION: Mild interval worsening of congestive changes Dictated and Authenticated by: Kristian Gamble MD. Ordering:SHMUEL Rose MD
[2023-01-23 19:30] LABS: NT-proBNP 265 pg/mL (<300)
--- NOTE | 2023-01-23 21:17 | HPE_ITS ---
Date of service: 01/23/23 Time of Service: 21:18 Assessment and Plan Assessment and plan (1) Pneumonia: Status: Acute Assessment and plan: Even though chest x-ray does not show a focal pneumonia, I agree that respiraotry infection is the cause of her presenation. BNaP not c/w CHF. I will get EKG however. With failure of outpatient levofloxacin and some hypoxia in this higher risk patient, I agree with admission. With her 40pack year smoking history and possible chronic interstitial disease, I agree with steroids as well. With the chronic lung disease she is at risk for psuedomonas so I will cover this along with atypicals with doxycycline. Given uncertain diagnosis, I ordered legionella and pneumococcus antigens and mycoplasma. She did have some diarrhea (though my be abx associated). Sputum culture also ordered. If she isn't improving, consider CT scan and pulmonology consult. Either way, the consult and PFTs would be useful as outpatient. (2) Hypertension: Status: Chronic Assessment and plan: BP high on admission, but she is not on medication for HTN at home. Continue to monitor (3) Hyponatremia: Status: Resolved Assessment and plan: She was likely intravascularly depleted, and the lung disease may also be contributing to ADH production. She got some saline, treating infection, follow. (4) Diabetes mellitus: Status: Chronic Assessment and plan: Well controlled with A1c 09/08 of 6.7 on just metformin. Repeat A1c. Continue metformin and ISS low, but stop metformin and start glargine if she needs contrast CT. Qualifiers: Diabetes mellitus type: type 2 Diabetes mellitus assisted insulin use: without assisted use Diabetes mellitus complication status: without complication Qualified Code(s): E11.9 - Type 2 diabetes mellitus without complications (5) Neurogenic bladder: Status: Chronic Assessment and plan: Chronic liu, monitor. (6) DVT prophylaxis: Status: Acute Assessment and plan: LMWH (7) Discharge planning issues: Status: Acute Assessment and plan: She needs oxygen and IV therapy now, consider discharge once she is improving and we have a treatment plan. I don't think she need tele but getting EKG to make sure no signs of heart disease contributing. History of Present Illness History of Present Illness Chief Complaint: shortness of breath Narrative: 82 yo F with history of paraplegia and arm contractures and a diagnosis of interstitial lung disease who is largely bed bound who is presenting with worsening shortness of breath and productive cough x 4 days. She was well until 6 days prior to admission, went out to [employer] [place] [facility] the [facility], which was a big outing for her. During the evening she became quite chilled. 1-2 days later she started with a cough that became productive. She was seen by her primary who treated her with levofloxacin (she doesn't remember this exactly due to poor memory past 1-2 days related to her head trauma, but records indicate 4 days of oral levofloxacin). Her cough and shortness of breath was not improving. She felt worse today and asked her to bring her to the emergency room. She still has some chills off/on, general fatigue, but no fever. She has a history of frequent pneumonias and UTIs. Interstitial lung disease is on her problem list and scarring seen on 12/2019 CT scan of the chest, but we don't have record of pulmonary consult or treatment for chronic ILD> She has no known sick contacts in the past week or two. She does have a remote smoking history. I don't see PFTs on the record (PCP Bobby/[facility]). Review of Systems Constitutional Constitutional: Denies anorexia, Denies fever(s), Denies headache(s) and Reports lethargy Eyes Eyes: Denies change in vision and Denies irritation ENT Ears, Nose, Mouth, and Throat: Denies dysphagia, Denies dizziness, Denies headache(s), Denies nasal congestion, Denies nasal discharge and Denies sore throat Cardiovascular Cardiovascular: Denies chest pain, Denies edema and Denies palpitations Respiratory Respiratory: Reports as per HPI and Denies hemoptysis Gastrointestinal Gastrointestinal: Denies abdominal pain, Denies dysphagia, Denies heartburn, Reports loose stools (started after staring antibiotic) and Denies vomiting Genitourinary Genitourinary: Denies hematuria, Denies dysuria and Denies urinary incontinence Integumentary/Breasts Skin/Breast: Denies rash, Denies skin ulcer and Reports sores (had some sacral redness a few days ago) Neurologic Neurologic: Denies confusion, Denies dizziness, Denies headache(s), Reports memory loss and Reports sensory deficit (chronic, only feels arms and head) Psychiatric Psychiatric: Denies confusion, Reports memory loss and Denies mood swings Endocrine Endocrine: Denies palpitations Hematologic/Lymphatic Hematologic/Lymphatic: Denies easy bleeding PFSH All Active Problems Discharge planning issues (Acute) DVT prophylaxis (Acute) Shortness of breath (Acute) Pneumonia (Acute) Acute UTI (Acute) Spinal stenosis, lumbar (Acute) Primary malignant neoplasm of breast (Acute) Neurogenic claudication (Acute) Hypothyroidism (Chronic) Hypertension (Chronic) Constipation due to neurogenic bowel (Acute) Benign neoplasm of colon (Acute) Autonomic dysreflexia (Acute) Arm edema (Acute) Nail dystrophy (Acute) UTI (urinary tract infection) (Acute) Transaminitis (Acute) Bladder spasm (Acute) COVID-19 ruled out (Acute) Neuropathic pain of finger of right hand (Acute) Fungal dermatitis (Acute) Chronic suprapubic catheter (Chronic) Hypomagnesemia (Acute) Acute UTI (Acute) Infiltrate of lung present on imaging of chest (Acute) UTI (urinary tract infection) (Acute) Hyperlipemia (Chronic) Intracranial aneurysm (Chronic) AAA (abdominal aortic aneurysm) (Chronic) Suprapubic catheter (Chronic) Diabetes mellitus (Chronic) Neurogenic bladder (Chronic) Paraplegia (Chronic) Medical History Cervical disc disorder CTS (carpal tunnel syndrome) left wrist ESBL (extended spectrum beta-lactamase) producing bacteria infection History of breast cancer Interstitial lung disease Pressure ulcer Surgical History H/O breast surgery H/O cervical spine surgery S/P cholecystectomy S/P rotator cuff repair S/P trigger finger release S/P tubal ligation Social History (Updated 01/23/23 @ 22:09 by Armen Parker) Smoking/Tobacco Use Status: Former Tobacco Use Quit Date: 08/17/06 Pack-years: 40 Smoking risk assessment performed?: Yes Alcohol Intake: never Drug use: Never Substance use type: does not use Current gender identity: female Do you feel safe at home: Yes Do you feel safe in your relationship?: Yes Additional Social history: lives with her in [place], [place]. Has home health. Meds Allergies and Home Medications Allergies Allergy/AdvReac Type Severity Reaction Status Date / Time ibuprofen AdvReac Mild Nausea Unverified 01/23/23 17:32 Home Medications Medication Instructions Recorded Confirmed Type aspirin 81 mg tablet,delayed 81 mg PO DAILY 06/23/18 01/23/23 History release atorvastatin 10 mg tablet 10 mg PO HS 06/23/18 01/23/23 History metformin 500 mg tablet 1,000 mg PO BID 06/23/18 01/23/23 History multivitamin 1 tab PO DAILY 06/23/18 01/23/23 History calcium carbonate 500 mg-vitamin 1 tab PO BID 06/16/19 01/23/23 History D3 10 mcg (400 unit) tablet (Calcium 500 With D) citric ac 1980.6 mg-glucono 59.4 30 ml irrigation DAILY 12/21/19 01/23/23 History mg-mag carb 980.4 mg/30 mL irrig.soln (Renacidin) baclofen 10 mg tablet 20 mg PO TID 06/24/22 01/23/23 History mirabegron 25 mg tablet,extended 25 mg PO DAILY #90 tabs 06/24/22 01/23/23 Rx release 24 hr (Myrbetriq) acetaminophen 500 mg tablet 1,000 mg PO TID PRN 08/25/22 01/23/23 History cyanocobalamin (vitamin B-12) 1,000 mcg PO DAILY 08/25/22 01/23/23 History 1,000 mcg capsule d-mannose 500 mg capsule (AZO 1,000 mg PO BID 08/25/22 01/23/23 History D-Mannose) gabapentin 400 mg capsule 400 mg PO BID 08/25/22 01/23/23 History (Neurontin) gabapentin 600 mg tablet 600 mg PO HS 08/25/22 01/23/23 History lidocaine 5 % topical cream 1 applic topical TID PRN 08/25/22 01/23/23 History magnesium oxide 400 mg PO BID 08/25/22 01/23/23 History levothyroxine 75 mcg tablet 75 mcg PO QAM 12/03/22 01/23/23 History omeprazole 20 mg tablet,delayed 20 mg PO DAILY 12/03/22 01/23/23 History release sennosides 8.6 mg tablet (senna) 8.6 mg PO QHS 12/03/22 01/23/23 History ondansetron 4 mg disintegrating 4 mg PO Q8H PRN #10 tabs 12/05/22 01/23/23 Rx tablet Exam Narrative Exam Narrative: GEN: Alert and oriented x 3, pleasant and cooperative, gives linear but vaugue history and cannot related details. No acute distress at rest sitting in bed, elbows flexed and hands suponated. HEENT: Head atraumatic. Conjunctiva clear, no icterus. PEERL, EOMI. no rhinorrhea. MMM, OP benign. Neck is supple with no masses or lymphadenopathy, trachea midline LUNGS: O2 via NC. Lungs with very slight inspiratory crackle and deep expiratory wet sounding rhonchi, both diffuse but more in lower lung william. CV: RRR with no murmurs, gallops, or rubs. ABD: +BS, protuberant but soft, no fluid wave. not tender, no masses EXT: no cyanosis, clubbing. trace to 1+ myles ankle edema MSK: No joint redness or swelling. See general NEURO: CN 2-12 grossly intact. Normal speech. Arms contracted as above, does not move or feel legs. SKIN: No rashes or open wounds. Skin over sacrum thick and nodular, not red or open PSYCH: normal mood and affect Results Imaging Chest x-ray: report reviewed (Lungs: There is moderate diffuse pulmonary vascular and interstitial prominence, worsened from the prior study. Mild s ubpleural consolidation in the lateral left lung appears stable. Pleural spaces: Blunting of the costophrenic angle suggests small bilateral pleural effusions. No pneumothorax. Heart) Labs 01/23/23 17:11 01/23/23 17:11 Labs: Laboratory Results - last 24 hr 01/23/23 01/23/23 01/23/23 17:11 17:11 17:11 WBC 9.54 RBC 3.48 L Hgb 11.3 Hct 34.3 L MCV 99 H MCH 32.5 MCHC 32.9 RDW 13.2 Plt Count 183 MPV 10.3 Immature Gran % 1.0 Neutrophils % 46.9 Lymphocytes % 44.4 Monocytes % 5.5 Eosinophils % 1.7 Basophils % 0.5 Nucleated RBC % 0.0 Absolute Neutrophils 4.47 Absolute Lymphocytes 4.24 H Absolute Monocytes 0.52 Absolute Eosinophils 0.16 Absolute Basophils 0.05 VBG Lactate Sodium 130 L Potassium 4.9 Chloride 96 L Carbon Dioxide 26.3 Anion Gap 7.7 BUN 16 Creatinine 0.8 Est GFR (CKD-EPI 2020) 73.52 Glucose 109 H Calcium 9.2 Magnesium 1.9 Total Bilirubin 0.4 AST 27 ALT 41 Alkaline Phosphatase 61 NT-Pro-B Natriuret Pep 265 Total Protein 7.3 Albumin 3.5 COVID-19 Source SARS-CoV-2 (PCR) Influenza Type A (PCR) Influenza Type B (PCR) RSV (PCR) 01/23/23 01/23/23 17:13 17:50 WBC RBC Hgb Hct MCV MCH MCHC RDW Plt Count MPV Immature Gran % Neutrophils % Lymphocytes % Monocytes % Eosinophils % Basophils % Nucleated RBC % Absolute Neutrophils Absolute Lymphocytes Absolute Monocytes Absolute Eosinophils Absolute Basophils VBG Lactate 2.3 H* Sodium Potassium Chloride Carbon Dioxide Anion Gap BUN Creatinine Est GFR (CKD-EPI 2020) Glucose Calcium Magnesium Total Bilirubin AST ALT Alkaline Phosphatase NT-Pro-B Natriuret Pep Total Protein Albumin COVID-19 Source Nasopharynx SARS-CoV-2 (PCR) Negative Influenza Type A (PCR) Negative Influenza Type B (PCR) Negative RSV (PCR) Negative Last Vital Signs Temp 36.9 C 01/23/23 20:42 Pulse 88 01/23/23 20:42 Resp 18 01/23/23 20:42 BP 176/77 H 01/23/23 20:42 Pulse Ox 96 01/23/23 20:42 Time Spent Time spent with Patient: 55-74 minutes Time was spent: preparing to see the patient(eg.review tests), obtaining and/or reviewing separately otained hiistory, ordering medications,tests, procedures, referring, communicating with other health career and guidance counselor, indepentently interpreting results and counseling the patient
[2023-01-23] MEDS: Atorvastatin 10 MG TAB PO (22:14)
[2023-01-23] MEDS: Gabapentin 600 MG TAB PO (22:14)
[2023-01-23] MEDS: Senna TAB 1 TAB PO (22:14)
[2023-01-23] MEDS: Enoxaparin 40 MG/0.4 ML SYR SC (22:15)
[2023-01-24] VITALS (9 sets, daily range): BP systolic 133–165; BP diastolic 53–78; PULSE 83–118; RESP 8–20; TEMP 36.4–37.4; O2SAT 90–97
[2023-01-24] MEDS: methylPREDNISolone SUCC 125 MG VIAL 80 MG IVP ×2 (01:24→09:47)
[2023-01-24] MEDS: PIPERACILLIN/TAZO 3.375 GM in Normal Saline 50 ML IVPB ×4 (01:24→19:06)
[2023-01-24] MEDS: Levothyroxine 75 MCG TAB PO (05:52)
[2023-01-24] MEDS: DOXYCYCLINE 100 MG in Normal Saline 100 ML IVPB ×2 (05:55→17:06)
[2023-01-24 06:47] LABS: Lactate 3.3 mmol/L (0.6-1.4)
[2023-01-24 07:10] LABS: Hemoglobin A1C 6.2 % (<5.7)
[2023-01-24 07:13] LABS: Anion Gap 8.7 mmol/L (3-11); BUN 17 mg/dL (7-18); CO2 25.3 mmol/L (21.0-32.0); Chloride 97 mmol/L (98-107); Estimated GFR 56.25 (mL/min/1.73m2); Glucose 268 mg/dL (74-106); Sodium 131 mmol/L (136-145)
[2023-01-24] MEDS: Normal Saline Flush 10 ML SYR IVP ×4 (07:51→14:21)
[2023-01-24] MEDS: Baclofen 10 MG TAB 20 MG PO ×3 (07:51→19:08)
[2023-01-24] MEDS: Gabapentin 100 MG CAP PO (07:52)
[2023-01-24] MEDS: Aspirin E.C. 81 MG TABEC PO (07:52)
[2023-01-24] MEDS: Cyanocobalamin 500 MCG TAB 1000 MCG PO (07:52)
[2023-01-24] MEDS: Omeprazole 20 MG CAPCR PO (07:52)
[2023-01-24] MEDS: Multivitamin TAB 1 TAB PO (07:52)
[2023-01-24] MEDS: Calcium Carbonate 1.25 GM TAB PO ×2 (07:52→19:08)
[2023-01-24] MEDS: Gabapentin 300 MG CAP PO (07:52)
[2023-01-24] MEDS: Cholecalciferol (Vitamin D3) 400 UNIT TAB PO ×2 (07:52→19:08)
[2023-01-24] MEDS: Magnesium Oxide 400 MG TAB PO ×2 (07:52→19:08)
[2023-01-24] MEDS: Albuterol/Ipratropium 3 ML UPD VIAL UPD ×3 (08:36→21:05)
[2023-01-24] MEDS: Normal Saline 500 ML 100 ML IV (08:45)
[2023-01-24] MEDS: Insulin Aspart 300 UNITS/3 ML PEN SC ×3 (08:46→17:06)
[2023-01-24] MEDS: Mirabegron 25 MG TABCR PO (08:47)
[2023-01-24] MEDS: metFORMIN 500 MG TAB 1000 MG PO (08:47)
--- NOTE | 2023-01-24 10:53 | PGE_ITS ---
Date of Service Date of service: 01/24/23 Time of Service: 10:53 Assessment and Plan Assessment and plan (1) Pneumonia: Status: Acute Assessment and plan: With failure of outpatient levofloxacin With her 40pack year smoking history and possible chronic interstitial disease; continue steroids With the chronic lung disease she is at risk for psuedomonas; continue doxycycline Legionella and pneumococcus antigens and mycoplasma, MRSA pending, Sputum cx pending Consider CT scan - pulmonology consult pending (2) Hypertension: Status: Chronic Assessment and plan: Continue to monitor (3) Hyponatremia: Status: Resolved Assessment and plan: She was likely intravascularly depleted, and the lung disease may also be contributing to ADH production. She got some saline, treating infection, follow. (4) Diabetes mellitus: Status: Chronic Assessment and plan: Well controlled with A1c 09/08 of 6.7 on just metformin. Repeat A1c. Hold metformin and ISS low Qualifiers: Diabetes mellitus complication status: without complication Diabetes mellitus group home insulin use: without group home use Diabetes mellitus type: type 2 Qualified Code(s): E11.9 - Type 2 diabetes mellitus without complications (5) Neurogenic bladder: Status: Chronic Assessment and plan: Chronic liu, monitor. (6) DVT prophylaxis: Status: Acute Assessment and plan: LMWH (7) Discharge planning issues: Status: Acute Assessment and plan: She needs oxygen and IV therapy now, consider discharge once she is improving Discussed with Dr Rosado Subjective Subjective Patient reports: no new complaints, tolerating a regular diet, bowel movement and afebrile; denies diarrhea, nausea or vomiting Interval history since last seen: Sitting up in bed, no complaints, reports feeling better. Exam Narrative Exam Narrative: GEN: Alert and oriented x 3, pleasant and cooperative. No acute distress at rest sitting in bed, elbows flexed, as norm HEENT: Head atraumatic. Conjunctiva clear, no icterus. PEERL, EOMI. no rhinorrhea. MMM, Neck is supple with no masses or lymphadenopathy, trachea midline LUNGS: O2 via NC. Lungs with diffuse crackles CV: RRR with no murmurs, gallops, or rubs. ABD: +BS, protuberant but soft, no fluid wave. not tender, no masses EXT: no cyanosis, clubbing. trace to 1+ myles ankle edema MSK: No joint redness or swelling. See general NEURO: CN 2-12 grossly intact. Normal speech. Arms contracted as above, does not move or feel legs. SKIN: No rashes or open wounds. Skin over sacrum thick and nodular, not red or open PSYCH: normal mood and affect Objective Last Vital Signs Temp 36.6 C 01/24/23 06:00 Pulse 99 H 01/24/23 06:00 Resp 20 01/24/23 06:00 BP 147/75 H 01/24/23 06:00 Pulse Ox 97 01/24/23 08:38 Laboratory Results - last 24 hr 01/23/23 01/23/23 01/23/23 17:11 17:11 17:11 WBC 9.54 RBC 3.48 L Hgb 11.3 Hct 34.3 L MCV 99 H MCH 32.5 MCHC 32.9 RDW 13.2 Plt Count 183 MPV 10.3 Immature Gran % 1.0 Neutrophils % 46.9 Lymphocytes % 44.4 Monocytes % 5.5 Eosinophils % 1.7 Basophils % 0.5 Nucleated RBC % 0.0 Absolute Neutrophils 4.47 Absolute Lymphocytes 4.24 H Absolute Monocytes 0.52 Absolute Eosinophils 0.16 Absolute Basophils 0.05 VBG Lactate Sodium 130 L Potassium 4.9 Chloride 96 L Carbon Dioxide 26.3 Anion Gap 7.7 BUN 16 Creatinine 0.8 Est GFR (CKD-EPI 2020) 73.52 Glucose 109 H Hemoglobin A1c Calcium 9.2 Magnesium 1.9 Total Bilirubin 0.4 AST 27 ALT 41 Alkaline Phosphatase 61 NT-Pro-B Natriuret Pep 265 Total Protein 7.3 Albumin 3.5 COVID-19 Source SARS-CoV-2 (PCR) Influenza Type A (PCR) Influenza Type B (PCR) RSV (PCR) 01/23/23 01/23/23 01/24/23 17:13 17:50 06:30 WBC RBC Hgb Hct MCV MCH MCHC RDW Plt Count MPV Immature Gran % Neutrophils % Lymphocytes % Monocytes % Eosinophils % Basophils % Nucleated RBC % Absolute Neutrophils Absolute Lymphocytes Absolute Monocytes Absolute Eosinophils Absolute Basophils VBG Lactate 2.3 H* Sodium 131 L Potassium 5.0 Chloride 97 L Carbon Dioxide 25.3 Anion Gap 8.7 BUN 17 Creatinine 1.0 Est GFR (CKD-EPI 2020) 56.25 Glucose 268 H Hemoglobin A1c Calcium 9.0 Magnesium Total Bilirubin AST ALT Alkaline Phosphatase NT-Pro-B Natriuret Pep Total Protein Albumin COVID-19 Source Nasopharynx SARS-CoV-2 (PCR) Negative Influenza Type A (PCR) Negative Influenza Type B (PCR) Negative RSV (PCR) Negative 01/24/23 01/24/23 06:30 06:30 WBC RBC Hgb Hct MCV MCH MCHC RDW Plt Count MPV Immature Gran % Neutrophils % Lymphocytes % Monocytes % Eosinophils % Basophils % Nucleated RBC % Absolute Neutrophils Absolute Lymphocytes Absolute Monocytes Absolute Eosinophils Absolute Basophils VBG Lactate 3.3 H* Sodium Potassium Chloride Carbon Dioxide Anion Gap BUN Creatinine Est GFR (CKD-EPI 2020) Glucose Hemoglobin A1c 6.2 H Calcium Magnesium Total Bilirubin AST ALT Alkaline Phosphatase NT-Pro-B Natriuret Pep Total Protein Albumin COVID-19 Source SARS-CoV-2 (PCR) Influenza Type A (PCR) Influenza Type B (PCR) RSV (PCR) Time Spent with Patient Time Spent with Patient: 35-49 minutes Time was spent: preparing to see the patient(eg.review tests), ordering medications,tests, procedures, referring, communicating with other health home health care coordinator, indepentently interpreting results, counseling the patient and care coordination
[2023-01-24] MEDS: Gabapentin 400 MG CAP PO (11:45)
[2023-01-24 14:19] LABS: Lab Add On Test DONE
[2023-01-24 14:53] LABS: Procalcitonin < 0.1 ng/mL
--- NOTE | 2023-01-24 15:54 | INITIAL_ITS ---
Date of service: 01/24/23 Time of Service: 15:54 Care Management Initial Assmt Initial Assessment REASON FOR HOSPITALIZATION:: Shortness of breath PREVIOUS FUNCTIONAL STATUS/SOCIAL/FAMILY SUPPORTS:: Gerardo lives in [place] with her . Their six children live nearby and are supportive of the couple. 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 Family provides most of her care with support from Home Health. CURRENT FUNCTIONAL STATUS:: Nursing staff are doing her care when CM comes to meet with her. CM will continue to follow. ADVANCE DIRECTIVES:: Not on file but patient has previously reported having an Advance Directives with daughter appointed as HCA. Has patient been provided with info about the portal/API?: No Did the patient sign up for the portal?: No CODE STATUS:: Full Code INSURANCE COVERAGE / FINANCIAL ISSUES:: [place] National Medicare Supplement, [place], [place], [place] CURRENT HOME/COMMUNITY SERVICES/EQUIPMENT:: [employer] lift, hospital bed, wheelchair, ramps, and shower chair. Family provides most of her care with Home Health nursing support. PRIMARY CARE PHYSICIAN:: Nida Farooq POTENTIAL DISCHARGE NEEDS:: Follow up appointment with PCP, resumption of HH services and coordination of transport home. PATIENT/FAMILY EDUCATION NEEDS:: Review of discharge instructions and discuss Ask Me Three. ANTICIPATED BARRIERS TO DISCHARGE:: None identified at this time. TRANSPORTATION:: Via ambulance coordinated by CM. PLAN:: Gerardo will be discharged home with a resumption of Home Health services when medically cleared by provider. She will follow up with her PCP and plan of care as instructed following discharge. She will be transported home by ambulance coordinated by CM when ready. CM will continue to support patient and discharge planning needs. PFSH All Active Problems Discharge planning issues (Acute) DVT prophylaxis (Acute) Shortness of breath (Acute) Pneumonia (Acute) Acute UTI (Acute) Spinal stenosis, lumbar (Acute) Primary malignant neoplasm of breast (Acute) Neurogenic claudication (Acute) Hypothyroidism (Chronic) Hypertension (Chronic) Constipation due to neurogenic bowel (Acute) Benign neoplasm of colon (Acute) Autonomic dysreflexia (Acute) Arm edema (Acute) Nail dystrophy (Acute) UTI (urinary tract infection) (Acute) Transaminitis (Acute) Bladder spasm (Acute) COVID-19 ruled out (Acute) Neuropathic pain of finger of right hand (Acute) Fungal dermatitis (Acute) Chronic suprapubic catheter (Chronic) Hypomagnesemia (Acute) Acute UTI (Acute) Infiltrate of lung present on imaging of chest (Acute) UTI (urinary tract infection) (Acute) Hyperlipemia (Chronic) Intracranial aneurysm (Chronic) AAA (abdominal aortic aneurysm) (Chronic) Suprapubic catheter (Chronic) Diabetes mellitus (Chronic) Neurogenic bladder (Chronic) Paraplegia (Chronic) Medical History Cervical disc disorder CTS (carpal tunnel syndrome) left wrist ESBL (extended spectrum beta-lactamase) producing bacteria infection History of breast cancer Interstitial lung disease Pressure ulcer Surgical History H/O breast surgery H/O cervical spine surgery S/P cholecystectomy S/P rotator cuff repair S/P trigger finger release S/P tubal ligation Social History (Updated 01/23/23 @ 22:09 by Armen Parker) Smoking/Tobacco Use Status: Former Tobacco Use Quit Date: 08/17/06 Pack-years: 40 Smoking risk assessment performed?: Yes Alcohol Intake: never Drug use: Never Substance use type: does not use Current gender identity: female Do you feel safe at home: Yes Do you feel safe in your relationship?: Yes Additional Social history: lives with her in [place], [place]. Has home health.
[2023-01-24 18:10] LABS: Lactate 5.5 mmol/L (0.6-1.4)
[2023-01-24] MEDS: Atorvastatin 10 MG TAB PO (19:08)
[2023-01-24] MEDS: Lactated Ringers 500 ML IV (19:48)
[2023-01-24] MEDS: Lactated Ringers 1,000 ML 125 ML IV (20:56)
[2023-01-24] MEDS: Senna TAB 1 TAB PO (21:04)
[2023-01-24] MEDS: Gabapentin 600 MG TAB PO (21:04)
[2023-01-24 21:06] LABS: Lactate 3.5 mmol/L (0.6-1.4)
[2023-01-24] MEDS: Insulin Glargine 300 UNITS/3 ML PEN 15 UNITS SC (21:09)
[2023-01-24] MEDS: Enoxaparin 40 MG/0.4 ML SYR SC (21:09)
--- NOTE | 2023-01-24 23:34 | NUR.NOTE ---
Rounding Note: patient repositioned at this time. from supine to her right side. upon physical exam. pt has a skin injury on her left buttock. I will place a mepelex on the next positioning schedule. Pt very frustrated upon waking the for repositioning. Nursing Note:
[2023-01-25] VITALS (7 sets, daily range): BP systolic 149–174; BP diastolic 70–83; PULSE 71–94; RESP 1–18; TEMP 36.4–36.7; O2SAT 94–100
[2023-01-25 00:39] LABS: Lactate 2.5 mmol/L (0.6-1.4)
[2023-01-25] MEDS: Lactated Ringers 1,000 ML 125 ML IV ×2 (00:51→13:25)
[2023-01-25] MEDS: Normal Saline Flush 10 ML SYR IVP (01:20)
[2023-01-25] MEDS: PIPERACILLIN/TAZO 3.375 GM in Normal Saline 50 ML IVPB ×4 (02:10→20:59)
[2023-01-25] MEDS: DOXYCYCLINE 100 MG in Normal Saline 100 ML IVPB ×2 (05:56→17:13)
[2023-01-25] MEDS: Levothyroxine 75 MCG TAB PO (05:57)
[2023-01-25] MEDS: Omeprazole 20 MG CAPCR PO (07:07)
[2023-01-25 07:20] LABS: Lactate 2.4 mmol/L (0.6-1.4)
[2023-01-25 07:24] LABS: Abs Immature Grans 0.17 10^3/uL (0.0-0.06); Absolute Basophil Count 0.04 10^3/uL (0.0-0.2); Absolute Eosinophil Count 0.06 10^3/uL (0.0-0.7); Absolute Lymphocyte Count 3.26 10^3/uL (1.2-3.4); Absolute Monocyte Count 0.59 10^3/uL (0.1-0.8); Absolute Neutrophil Count 4.55 10^3/uL (1.2-6.7); Basophils % 0.5; Eosinophils % 0.7; HCT 33.4 % (36.0-46.0); HGB 10.8 g/dL (11.2-15.7); Lymphocytes % 37.6; MCH 31.6 pg (27.0-33.0); MCHC 32.3 % (32.0-36.0); MCV 98 fL (80-95); MPV 9.6 fL (8.0-11.0); Monocytes % 6.8; Neutrophils % 52.4; Platelet Count 191 10^3/uL (130-400); RBC 3.42 10^6/uL (3.93-5.22); RDW 13.4 % (11.7-14.6); RDW-SD 48.1 fL; WBC 8.67 10^3/uL (4.4-10.8)
[2023-01-25 07:30] LABS: Anion Gap 8.1 mmol/L (3-11); BUN 21 mg/dL (7-18); CO2 25.9 mmol/L (21.0-32.0); CREATININE 0.8 mg/dL (0.55-1.02); Chloride 100 mmol/L (98-107); Estimated GFR 73.52 (mL/min/1.73m2); Glucose 112 mg/dL (74-106); Magnesium 1.8 mg/dL (1.8-2.4); Potassium 4.4 mmol/L (3.5-5.1); Sodium 134 mmol/L (136-145)
[2023-01-25] MEDS: Albuterol/Ipratropium 3 ML UPD VIAL UPD ×2 (07:44→14:22)
[2023-01-25] MEDS: Magnesium Oxide 400 MG TAB PO ×2 (07:52→20:58)
[2023-01-25] MEDS: Cyanocobalamin 500 MCG TAB 1000 MCG PO (07:52)
[2023-01-25] MEDS: Cholecalciferol (Vitamin D3) 400 UNIT TAB PO ×2 (07:53→20:58)
[2023-01-25] MEDS: Baclofen 10 MG TAB 20 MG PO ×3 (07:53→20:58)
[2023-01-25] MEDS: Aspirin E.C. 81 MG TABEC PO (07:54)
[2023-01-25] MEDS: Multivitamin TAB 1 TAB PO (07:54)
[2023-01-25] MEDS: Calcium Carbonate 1.25 GM TAB PO ×2 (07:54→20:58)
[2023-01-25] MEDS: Gabapentin 400 MG CAP PO ×2 (07:54→11:51)
[2023-01-25] MEDS: predniSONE 20 MG TAB 40 MG PO (07:55)
[2023-01-25] MEDS: Mirabegron 25 MG TABCR PO (07:55)
--- NOTE | 2023-01-25 09:10 | NUR.NOTE ---
Nursing Note: At approximately 0900 on 01/25/23, this RN returned a call from Luci Strickland (pt.'s daughter - on HIPAA). RN updated pt.'s daughter regarding pt.'s mentation, mood this morning, plan of care, including administration of IV fluids and IV antibiotics, etc. Pt.'s daughter asking what the pt.'s discharge plan is. RN informed the pt.'s daughter that there wasn't a clear discharge plan mentioned in the provider note from yesterday, but that most likely, the pt. would be staying another day/night, due to the increased lactate level and continued administration of IV fluids and IV antibiotics. RN also informed the pt.'s daughter that there would hopefully be a more clear discharge plan following morning meeting later on this morning. Pt.'s daughter verbalized understanding. Pt.'s daughter then requesting to speak with the pt. RN transferred the call in to the pt.'s room, where the pt.'s other daughter Abeba Louis (on HIPAA) assisted the pt. with taking the call.
--- NOTE | 2023-01-25 09:41 | IN_ITS ---
PT Notes Visit Reasons: Shortness of Breath Inpatient Physical Therapy Evaluation Date: January 25, 2023 Referring Doctor: Dr. Mervin Rosado PT Orders: PT CONSULT: non-urgent eval and treat Precautions: standard Patient Profile/Admitting Diagnosis: 82 yo F with history of paraplegia and arm contractures and a diagnosis of interstitial lung disease who is largely bed bound who is presenting with worsening shortness of breath and productive cough x 4 days.? She was well until 6 days prior to admission, went out to [employer] [facility], which was a big outing for her.? During the evening she became quite chilled.? 1-2 days later she started with a cough that became productive. PMHX: PFSH All Active Problems?(Updated 01/23/23 @ 19:46 by Rose Gomez NP) Shortness of breath (Acute) Pneumonia (Acute) Acute UTI (Acute) Spinal stenosis, lumbar (Acute) Primary malignant neoplasm of breast (Acute) Neurogenic claudication (Acute) Hypothyroidism (Chronic) Hypertension (Chronic) Constipation due to neurogenic bowel (Acute) Benign neoplasm of colon (Acute) Autonomic dysreflexia (Acute) Arm edema (Acute) Nail dystrophy (Acute) UTI (urinary tract infection) (Acute) Transaminitis (Acute) Bladder spasm (Acute) COVID-19 ruled out (Acute) Neuropathic pain of finger of right hand (Acute) Fungal dermatitis (Acute) Chronic suprapubic catheter (Chronic) Hypomagnesemia (Acute) Acute UTI (Acute) Infiltrate of lung present on imaging of chest (Acute) UTI (urinary tract infection) (Acute) Hyperlipemia (Chronic) Intracranial aneurysm (Chronic) AAA (abdominal aortic aneurysm) (Chronic) Suprapubic catheter (Chronic) Diabetes mellitus (Chronic) Neurogenic bladder (Chronic) Paraplegia (Chronic) Medical History? Cervical disc disorder CTS (carpal tunnel syndrome) left wristESBL (extended spectrum beta-lactamase) producing bacteria infection History of breast cancer Interstitial lung disease Pressure ulcer Surgical History? H/O breast surgery H/O cervical spine surgery S/P cholecystectomy S/P rotator cuff repair S/P trigger finger release S/P tubal ligation Social History/Home Situation: Patient lives in private home with 60+ years. Has multiple wheelchairs, ramp upon entry into the house and Kvng lift. Patient is essentially bedbound. She has assistance in the morning and evening for a couple hours. Has very supportive family. Her children alternate staying with their parents through the night. She is unable to feed herself or negotiate any power wheelchair. Current Functional Limitations: Bedbound Equipment Owned/DME: Automated Kvng, commode, wheelchair Subjective: No complaints offered. Patient is hoping to go home today or tomorrow. She states nursing has been performing pressure relief transfers but typically in the middle the night. Objective: General Observation: IV left upper extremity, catheter, foot/ankle garments for protection from pressure. Mental Status: Alert and oriented to time place and person Pain: Chronic right thumb pain Vital Signs: Per nursing ROM: Right Upper Extremity: Contractures of l elbows at 90 degrees. Maintains wrist in 40 degrees of extension. She can elevate right upper extremity 35 degrees. She can approximate palm to her cheek. Active assistive glenohumeral joint scapular plane AB duction 60 degrees limited with pain and firm end feel. Passive wrist flexion -15 degrees with pain and crepitus. Left Upper Extremity: Contracture of elbow 90 degrees. Glenohumeral joint active flexion 15 degrees. Approximates to 1 inch from cheek. Has some tremors in digits 4 and 5 Right Lower Extremity: Passive range of motion hip flexion 60 degrees, knee flexion 45 degrees, extension 0. Left Lower Extremity: Passive range of motion hip flexion 50 degrees, knee flexion 50 degrees (history of total knee replacement) extension 0. Strength: Right Upper Extremity: Glenohumeral joint scaption 3 -/5. 0 bag press operator. Flaccid wrist extension and flexion. Left Upper Extremity: Glenohumeral joint scaption 2/5, 0 bag press operator, flaccid wrist extension flexion Right Lower Extremity: 0/5 throughout Left Lower Extremity: 0/5 throughout Sensation: Lack sensation to light touch throughout bilateral upper and lower extremities. Bed Mobility/Transfers: Dependent on Kvng. Unable to feed self Gait: Nonambulatory Balance: [] Static Sitting: Poor Dynamic Sitting: Poor Static Standing: Wheelchair-bound Dynamic Standing: Wheelchair-bound Special Tests: Mobility Limitations Standard[facility] Basic Mobility Inpatient Short Form: Raw Score:6 Standardized Score: 100% CMS Score: CN Informed Consent/Education: Patient instructed in purpose of PT consult and plan of care. Assessment: Patient is a 82year old female referred to physical therapy services with the diagnosis of interstitial lung disease. Patient presents with clinical signs and symptoms consistent with admitting diagnosis. Patient is at baseline. Nursing has been performing pressure relief positioning. She requires Kvng for transfers. She has services at home. Considering patient is at her baseline level of function no physical therapy services are warranted. Impairments are contributing to the following functional limitations: AMPAC score. Patient is assessed as a [] Low 51103 [] Moderate 96493 X High 86337 complexity based on the following: History: See above Examination: See above Presentation: Stable Decision Making: High Goals: None required as patient is at baseline. DISCHARGE RECOMMENDATIONS: [] Home with no services [] [X] Home with services [resume prior care via home health] [] Home with outpatient PT [] [] SNF for continued rehabilitation [] [] Client Portfolio Manager Care [] [] SNF versus LTC based on ability to participate and progress [] TREATMENT CODE/TIME: 25 minutes initial evaluation 10680 9:20?9:45 Orestes Lainez PT, DPT Disclaimer: This note was created using [employer] voice recognition software. It was reviewed for major content. However, there may be multiple small discrepancies and errors due to the voice recognition aspects of the software.
[2023-01-25] MEDS: Insulin Aspart 300 UNITS/3 ML PEN SC ×2 (11:51→17:11)
--- NOTE | 2023-01-25 14:13 | PGE_ITS ---
Date of Service Date of service: 01/25/23 Time of Service: 14:13 Assessment and Plan Assessment and plan (1) Pneumonia: Status: Acute Assessment and plan: With failure of outpatient levofloxacin With her 40pack year smoking history and possible chronic interstitial disease; continue steroids With the chronic lung disease she is at risk for psuedomonas; continue doxycycline Legionella and pneumococcus antigens and mycoplasma, MRSA pending, Sputum cx pending Consider CT scan - pulmonology consult pending (2) Hypertension: Status: Chronic Assessment and plan: Continue to monitor (3) Hyponatremia: Status: Resolved Assessment and plan: She was likely intravascularly depleted, and the lung disease may also be contributing to ADH production. IV saline, treating infection, follow. up to 134 today (4) Diabetes mellitus: Status: Chronic Assessment and plan: Well controlled with A1c 09/08 of 6.7 on just metformin. Repeat A1c. Hold metformin and ISS low Qualifiers: Diabetes mellitus complication status: without complication Diabetes mellitus termite technician insulin use: without custodial use Diabetes mellitus type: type 2 Qualified Code(s): E11.9 - Type 2 diabetes mellitus without complications (5) Neurogenic bladder: Status: Chronic Assessment and plan: Chronic liu, monitor. Last changed (6) DVT prophylaxis: Status: Acute Assessment and plan: LMWH (7) Discharge planning issues: Status: Acute Assessment and plan: Improving, plan to go home 01/25 No O2 requirement. Discussed with Dr Rosado Subjective Subjective Patient reports: no new complaints, tolerating a regular diet, bowel movement and afebrile; denies diarrhea, nausea or vomiting Interval history since last seen: Reports feeling better, she is in bed semi fowlers states other than feeling twisted she is comfortable - repositioned and improved immediately. Objective Last Vital Signs Temp 36.4 C L 01/25/23 11:21 Pulse 812 H 01/25/23 11:21 Resp 18 01/25/23 11:21 BP 174/70 H 01/25/23 11:21 Pulse Ox 97 01/25/23 11:21 Laboratory Results - last 24 hr 01/24/23 01/24/23 01/24/23 06:30 06:30 17:57 WBC RBC Hgb Hct MCV MCH MCHC RDW Plt Count MPV Immature Gran % Neutrophils % Lymphocytes % Monocytes % Eosinophils % Basophils % Nucleated RBC % Absolute Neutrophils Absolute Lymphocytes Absolute Monocytes Absolute Eosinophils Absolute Basophils VBG Lactate 5.5 H* Sodium Potassium Chloride Carbon Dioxide Anion Gap BUN Creatinine Est GFR (CKD-EPI 2020) Glucose Calcium Magnesium Procalcitonin < 0.1 Add-On Test Request DONE 01/24/23 01/25/23 01/25/23 20:57 00:35 07:00 WBC RBC Hgb Hct MCV MCH MCHC RDW Plt Count MPV Immature Gran % Neutrophils % Lymphocytes % Monocytes % Eosinophils % Basophils % Nucleated RBC % Absolute Neutrophils Absolute Lymphocytes Absolute Monocytes Absolute Eosinophils Absolute Basophils VBG Lactate 3.5 H* 2.5 H* Sodium 134 L Potassium 4.4 Chloride 100 Carbon Dioxide 25.9 Anion Gap 8.1 BUN 21 H Creatinine 0.8 Est GFR (CKD-EPI 2020) 73.52 Glucose 112 H Calcium 9.0 Magnesium 1.8 Procalcitonin Add-On Test Request 01/25/23 01/25/23 07:00 07:00 WBC 8.67 RBC 3.42 L Hgb 10.8 L Hct 33.4 L MCV 98 H MCH 31.6 MCHC 32.3 RDW 13.4 Plt Count 191 MPV 9.6 Immature Gran % 2.0 Neutrophils % 52.4 Lymphocytes % 37.6 Monocytes % 6.8 Eosinophils % 0.7 Basophils % 0.5 Nucleated RBC % 0.0 Absolute Neutrophils 4.55 Absolute Lymphocytes 3.26 Absolute Monocytes 0.59 Absolute Eosinophils 0.06 Absolute Basophils 0.04 VBG Lactate 2.4 H* Sodium Potassium Chloride Carbon Dioxide Anion Gap BUN Creatinine Est GFR (CKD-EPI 2020) Glucose Calcium Magnesium Procalcitonin Add-On Test Request Time Spent with Patient Time Spent with Patient: 35-49 minutes Time was spent: preparing to see the patient(eg.review tests), ordering medications,tests, procedures, referring, communicating with other health dialysis patient care technician, indepentently interpreting results, counseling the patient and care coordination
[2023-01-25] MEDS: Normal Saline 500 ML 100 ML IV (14:40)
[2023-01-25 17:12] LABS: Legionella Ag Detection Urine Negative (Negative)
[2023-01-25] MEDS: Insulin Glargine 300 UNITS/3 ML PEN 15 UNITS SC (20:57)
[2023-01-25] MEDS: Atorvastatin 10 MG TAB PO (20:58)
[2023-01-25] MEDS: Enoxaparin 40 MG/0.4 ML SYR SC (21:25)
[2023-01-25] MEDS: Gabapentin 600 MG TAB PO (21:26)
[2023-01-25] MEDS: Senna TAB 1 TAB PO (21:26)
[2023-01-26] VITALS (7 sets, daily range): BP systolic 119–190; BP diastolic 56–79; PULSE 72–86; RESP 16–19; TEMP 36.1–37.1; O2SAT 92–95
[2023-01-26] MEDS: PIPERACILLIN/TAZO 3.375 GM in Normal Saline 50 ML IVPB ×4 (01:19→20:09)
[2023-01-26] MEDS: Lactated Ringers 1,000 ML 125 ML IV (04:26)
[2023-01-26] MEDS: DOXYCYCLINE 100 MG in Normal Saline 100 ML IVPB ×2 (05:47→18:33)
[2023-01-26] MEDS: Levothyroxine 75 MCG TAB PO (05:48)
[2023-01-26 07:02] LABS: Abs Immature Grans 0.14 10^3/uL (0.0-0.06); Absolute Basophil Count 0.05 10^3/uL (0.0-0.2); Absolute Eosinophil Count 0.08 10^3/uL (0.0-0.7); Absolute Lymphocyte Count 4.18 10^3/uL (1.2-3.4); Absolute Monocyte Count 0.53 10^3/uL (0.1-0.8); Absolute Neutrophil Count 3.77 10^3/uL (1.2-6.7); Basophils % 0.6; Eosinophils % 0.9; HCT 32.8 % (36.0-46.0); HGB 10.9 g/dL (11.2-15.7); Immature Grans % 1.6; Lymphocytes % 47.8; MCH 32.3 pg (27.0-33.0); MCHC 33.2 % (32.0-36.0); MCV 97 fL (80-95); Monocytes % 6.1; Platelet Count 201 10^3/uL (130-400); RBC 3.37 10^6/uL (3.93-5.22); RDW 13.7 % (11.7-14.6); RDW-SD 48.9 fL; WBC 8.75 10^3/uL (4.4-10.8)
[2023-01-26 07:16] LABS: Anion Gap 7.2 mmol/L (3-11); BUN 22 mg/dL (7-18); CO2 28.8 mmol/L (21.0-32.0); CREATININE 0.9 mg/dL (0.55-1.02); Calcium 9.1 mg/dL (8.5-10.1); Chloride 103 mmol/L (98-107); Estimated GFR 63.83 (mL/min/1.73m2); Glucose 88 mg/dL (74-106); Magnesium 1.6 mg/dL (1.8-2.4); Potassium 4.4 mmol/L (3.5-5.1); Sodium 139 mmol/L (136-145)
[2023-01-26] MEDS: Omeprazole 20 MG CAPCR PO (07:21)
[2023-01-26] MEDS: Aspirin E.C. 81 MG TABEC PO (08:51)
[2023-01-26] MEDS: Cyanocobalamin 500 MCG TAB 1000 MCG PO (08:51)
[2023-01-26] MEDS: Gabapentin 400 MG CAP PO ×2 (08:51→11:39)
[2023-01-26] MEDS: Baclofen 10 MG TAB 20 MG PO ×3 (08:52→20:10)
[2023-01-26] MEDS: Calcium Carbonate 1.25 GM TAB PO ×2 (08:53→20:10)
[2023-01-26] MEDS: Cholecalciferol (Vitamin D3) 400 UNIT TAB PO ×2 (08:54→20:10)
[2023-01-26] MEDS: predniSONE 20 MG TAB 40 MG PO (08:54)
[2023-01-26] MEDS: Mirabegron 25 MG TABCR PO (08:54)
[2023-01-26] MEDS: Multivitamin TAB 1 TAB PO (08:54)
[2023-01-26] MEDS: MAGNESIUM SULFATE 2 GM/50 ML BAG IVPB (08:57)
--- NOTE | 2023-01-26 11:02 | WOUNDCONS ---
- If Service Date Differs Date of service: 01/26/23 Time of Service: 11:03 Wound Initial Evaluation Narrative: Rohit is a 82 yof , a paraplegic from a fall in 2018. She is admitted here for pneumonia. She has a hx significant otherwise, of a 40 year pack smoker. HTN, Hyponatremia, DM, and neurogenic bladder, r/t to the paraplegia, with chronic indwelling catheter. Patient was noted to have a wound on admission, and wound nursing was asked to assess and make recommendations. Interviewing the patient. She has arm contracture's bilaterally. She is moved from the bed to her wheelchair, using a sathya twice daily, she is put on the bed snell for two hours in the morning by care givers, and she has a daily bowel movement during this time. On inspection, she has stage 2 PI's in both Ischial tuberculins. Addressed patient's concern over that she was admitted with on wound now she has 3 by explaining, to her that each open area is considered to be it's own wound. Patient consents and signs consent for consult.Labs today Mag 1.6, creatinine was 2.2. This was mentioned to charge nurse prior to starting consult. H&P and all other pertinent information were reviewed prior to consult Body Four View: 1 - stage 2 2 - stage 2 3 - stage 2 - Wound Lumbar/Sacral Wound Type: Pressure Ulcer Pressure Ulcer Stage: II Wound General Appearance: Reddened, Unapproximated Wound Bed Greatest Portion: Red (Granulation) Wound Surrounding Tissue Appearance: Dark Red Percent of Wound Bed Granulated/Red: 100 Wound Length: 6.5 cm Wound Width: 6.5 cm Wound Depth: 0.2 cm Wound Drainage Amount: Minimal Wound Drainage Odor: None/Absent Wound Drainage Description: Bloody Wound Topical Solution/Irrigant: Other (Equos wound power cleaner operator) Wound Debridement Method: Gauze Wound Debridement Result: Healthy Tissue Revealed Wound Debridement Amount of Tissue Removed: Minimal Left Posterior Thigh Wound Type: Pressure Ulcer Pressure Ulcer Stage: II Wound General Appearance: Reddened, Bleeding, Unapproximated Wound Bed Greatest Portion: Red (Granulation) Wound Surrounding Tissue Appearance: Dark Red Percent of Wound Bed Granulated/Red: 100 Wound Length: 0.6 cm Wound Width: 0.9 cm Wound Depth: 0.2 cm Wound Drainage Amount: Minimal Wound Drainage Odor: None/Absent Wound Drainage Description: Bloody Wound Topical Solution/Irrigant: Other (Equos wound cleanser) Wound Debridement Method: Gauze Wound Debridement Result: Healthy Tissue Revealed Wound Debridement Amount of Tissue Removed: Minimal Right Posterior Thigh Wound Type: Pressure Ulcer Pressure Ulcer Stage: II Wound General Appearance: Reddened, Bleeding, Unapproximated Wound Surrounding Tissue Appearance: Dark Red Percent of Wound Bed Granulated/Red: 100 Wound Length: 0.5 cm Wound Width: 1 cm Wound Depth: 0.2 cm Wound Drainage Amount: Minimal - Circulation, Sensation, Motion Edema Degree: 1+ Capillary Refill: Less than 3 seconds Sensation Description: Numbness, Tingling - ESTEFANI Comment:: not applicable - Pain Pain Level: 0 Patient who is immobile. She insists that homecaregivers turn her every two hours. Wound nursing reinforces with patient that off loading pressure is the best tool to employ to heal wounds - Photo Photo: - Treatment/Dressing Change Topicals/Ointments: None Cleanse With: Cleanser with Surfactant Dressing Types: Mepilex w/Border - Nutrition Education Reviewed Nutrition Education: Yes - Recomendation Recomendation:: Sacral wound. Cleanse area with wound cleanser, then pat dry. Cover with Mepilex border sacral dressing. Change every 3 days or PRN. Offload pressure as patient will tolerate. Thigh wounds. Cleanse wounds with wound cleanser, then pat dry. Cover with Mepilex border dressing. Change every 3 days or PRN. Offload pressure as patient will tolerate. Physcian/Nurse Practioner Notified: Yes (Dr. Bey) Referrals: Dietary Treatment Time - Time Total Time Spent with Patient: 30 minutes - Patient Will be Seen Weekly Treatment: 3x/wk - For: For:: 1 week
[2023-01-26] MEDS: Magnesium Oxide 400 MG TAB PO ×3 (11:39→20:10)
[2023-01-26] MEDS: Insulin Aspart 300 UNITS/3 ML PEN SC ×2 (11:45→17:22)
--- NOTE | 2023-01-26 13:39 | W.PM.PROGNOT ---
Date of Service Date of service: 01/26/23 Time of Service: 13:41 Assessment and Plan Assessment and plan (1) Pneumonia: Status: Acute Assessment and plan: Failed levofloxacin as outpatient. H/o tobacco abuse, ILD. Sputum C&S still not collected. Clinically better. Continue doxycycline, zosyn (Day 3/5), steroids, prn nebs. Legionella urine Ag negative. Strep urine antigen and sputum for mycoplasma are pending. MRSA nares negative. Await pulmonology consult. (2) Hypertension: Status: Chronic Assessment and plan: Not on medications at home and does have NIDDM2 and h/o AAA, so even though there may be a component of autonomic dysfunction associated with the constipation in setting of quadriplegia causing the hypertension today, given baseline hypertension and h/o AAA as well as a h/o intracranial aneurysm, I am inclined to start her on antihypertensives and, specifically, an patrick-i. Will try a small dose of patrick-i while working on resolving constipation. I am not adding a salt restriction due to the h/o hyponatremia which actually appears to be due to lack of solute, not dilutional. (3) Hyponatremia: Status: Resolved Assessment and plan: Acute on chronic, resolved, in setting of dehydration. We will monitor sodium with initiation of an patrick-i. (4) Diabetes mellitus: Status: Chronic Assessment and plan: A1C of 6.2. Non-insulin dependent. Continue to hold metformin in house. Continue SSI. Continue carb consistent diet. Qualifiers: Diabetes mellitus type: type 2 Diabetes mellitus terminal make up operator insulin use: without assisted use Diabetes mellitus complication status: without complication Qualified Code(s): E11.9 - Type 2 diabetes mellitus without complications (5) Neurogenic bladder: Status: Chronic Assessment and plan: S/p suprapubic catheter. We are looking into when it was last changed. I had asked the nursing to do a bladder scan to ensure the catheter is not obstructed. (6) DVT prophylaxis: Status: Acute Assessment and plan: Enoxaparin (7) Discharge planning issues: Status: Acute Assessment and plan: Continues to require hospitalization Anticipate discharge home after completion of 5 days of abx. (8) Constipation: Status: Acute Assessment and plan: Schedule bowel regimen. Could be the trigger for hypertension. Subjective Subjective Interval history since last seen: The patient was found to have a BP of 192/68. She states her normal SBP runs in 140s at home. She thinks that her BP is elevated because she does not want to be here and wants to go home. She denies dizziness, CP, SOB, n/v. She is not in pain. She cannot recall having a BM since arrival at the hospital. At home she has them every day. Her suprapubic catheter appears to be draining adequately. Exam Narrative Exam Narrative: General: Elderly quadriplegic female with contracted BUEs who is A&Ox3, does not appear uncomfortable. HEENT: EOMI, MMM Heart: RRR, no m/r/g Lungs: CTAB anteriorly Abdomen: soft, nontender, nondistended : suprapubic catheter is draining clear yellow urine Extremities: no edema BLEs Objective Last Vital Signs Temp 37.1 C 01/26/23 11:40 Pulse 72 01/26/23 11:40 Resp 16 01/26/23 11:40 BP 190/76 H 01/26/23 11:40 Pulse Ox 95 01/26/23 11:40 Laboratory Results - last 24 hr 01/24/23 01/26/23 01/26/23 14:40 06:30 06:30 WBC 8.75 RBC 3.37 L Hgb 10.9 L Hct 32.8 L MCV 97 H MCH 32.3 MCHC 33.2 RDW 13.7 Plt Count 201 MPV 10.0 Immature Gran % 1.6 Neutrophils % 43.0 Lymphocytes % 47.8 Monocytes % 6.1 Eosinophils % 0.9 Basophils % 0.6 Nucleated RBC % 0.0 Absolute Neutrophils 3.77 Absolute Lymphocytes 4.18 H Absolute Monocytes 0.53 Absolute Eosinophils 0.08 Absolute Basophils 0.05 Sodium 139 Potassium 4.4 Chloride 103 Carbon Dioxide 28.8 Anion Gap 7.2 BUN 22 H Creatinine 0.9 Est GFR (CKD-EPI 2020) 63.83 Glucose 88 Calcium 9.1 Magnesium 1.6 L Urine Legionella Ag Negative Time Spent with Patient Time Spent with Patient: 25-34 minutes Time was spent: preparing to see the patient(eg.review tests), obtaining and/or reviewing separately otained hiistory, ordering medications,tests, procedures, referring, communicating with other health family day carer, indepentently interpreting results, counseling the patient and care coordination
[2023-01-26] MEDS: Docusate Sodium 100 MG CAP PO ×2 (14:27→20:10)
[2023-01-26] MEDS: Lisinopril 5 MG TAB 2.5 MG PO (14:27)
[2023-01-26] MEDS: Senna TAB 1 TAB PO ×2 (14:28→20:10)
[2023-01-26] MEDS: Bisacodyl 10 MG SUPP PR (14:28)
[2023-01-26] MEDS: Normal Saline 500 ML 30 ML IV (14:28)
--- NOTE | 2023-01-26 16:55 | CMPROGNOTE_ITS ---
Date of service: 01/26/23 Time of Service: 16:55 Care Management Progress Note Progress Note Text Progress Note Text: S/O: Gerardo remains inpatient, Pulmonology consulted. No change to overall discharge plan, CM continues to follow. A: 82 year old female admitted to [facility] 01/23/23 with SOB P: Gerardo will be discharged home with a resumption of Home Health services when medically cleared by provider.? She will follow up with her PCP and plan of care as instructed following discharge.? She will be transported home by ambulance coordinated by CM when ready.? CM will continue to support patient and discharge planning needs.
[2023-01-26] MEDS: Atorvastatin 10 MG TAB PO (20:10)
[2023-01-26] MEDS: Enoxaparin 40 MG/0.4 ML SYR SC (22:30)
[2023-01-26] MEDS: Insulin Glargine 300 UNITS/3 ML PEN 15 UNITS SC (22:31)
[2023-01-26] MEDS: Gabapentin 600 MG TAB PO (22:31)
[2023-01-27] VITALS (8 sets, daily range): BP systolic 116–168; BP diastolic 59–74; PULSE 82–86; RESP 18; TEMP 36.7–38.3; O2SAT 92–98
[2023-01-27] MEDS: PIPERACILLIN/TAZO 3.375 GM in Normal Saline 50 ML IVPB ×4 (01:19→21:09)
[2023-01-27] MEDS: Levothyroxine 75 MCG TAB PO (05:32)
[2023-01-27] MEDS: DOXYCYCLINE 100 MG in Normal Saline 100 ML IVPB ×2 (05:32→18:38)
[2023-01-27 07:07] LABS: Anion Gap 6.5 mmol/L (3-11); BUN 24 mg/dL (7-18); CO2 28.5 mmol/L (21.0-32.0); CREATININE 0.8 mg/dL (0.55-1.02); Calcium 8.8 mg/dL (8.5-10.1); Chloride 103 mmol/L (98-107); Estimated GFR 73.52 (mL/min/1.73m2); Glucose 89 mg/dL (74-106); Magnesium 1.9 mg/dL (1.8-2.4); Potassium 4.5 mmol/L (3.5-5.1); Sodium 138 mmol/L (136-145)
[2023-01-27] MEDS: Omeprazole 20 MG CAPCR PO (07:18)
[2023-01-27] MEDS: Gabapentin 400 MG CAP PO ×2 (07:19→12:04)
[2023-01-27] MEDS: Calcium Carbonate 1.25 GM TAB PO ×2 (08:40→21:08)
[2023-01-27] MEDS: Multivitamin TAB 1 TAB PO (08:41)
[2023-01-27] MEDS: Cholecalciferol (Vitamin D3) 400 UNIT TAB PO ×2 (08:41→21:08)
[2023-01-27] MEDS: Senna TAB 1 TAB PO (08:41)
[2023-01-27] MEDS: Aspirin E.C. 81 MG TABEC PO (08:41)
[2023-01-27] MEDS: Mirabegron 25 MG TABCR PO (08:41)
[2023-01-27] MEDS: Baclofen 10 MG TAB 20 MG PO ×3 (08:41→21:08)
[2023-01-27] MEDS: Lisinopril 2.5 MG TAB PO (08:42)
[2023-01-27] MEDS: predniSONE 20 MG TAB 40 MG PO (08:42)
[2023-01-27] MEDS: Docusate Sodium 100 MG CAP PO (08:42)
[2023-01-27] MEDS: Cyanocobalamin 500 MCG TAB 1000 MCG PO (08:42)
[2023-01-27] MEDS: Magnesium Oxide 400 MG TAB PO ×3 (08:42→21:08)
[2023-01-27] MEDS: Acetaminophen 325 MG TAB PO (12:03)
[2023-01-27] MEDS: Insulin Aspart 300 UNITS/3 ML PEN SC ×2 (12:16→18:36)
--- NOTE | 2023-01-27 13:40 | PGE_ITS ---
Date of Service Date of service: 01/27/23 Time of Service: 13:40 Assessment and Plan Assessment and plan (1) Pneumonia: Status: Acute Assessment and plan: Failed levofloxacin as outpatient. H/o tobacco abuse, ILD. Sputum C&S pending Clinically better. Continue doxycycline, zosyn (Day 4/5), steroids, prn nebs. Legionella urine Ag negative. Strep urine antigen and sputum for mycoplasma are pending. MRSA nares negative. Await pulmonology consult. (2) Hypertension: Status: Chronic Assessment and plan: Not on medications at home and does have NIDDM2 and h/o AAA, so even though there may be a component of autonomic dysfunction associated with the constipation in setting of quadriplegia causing the hypertension, given baseline hypertension and h/o AAA as well as a h/o intracranial aneurysm (3) Hyponatremia: Status: Resolved Assessment and plan: Acute on chronic, resolved, in setting of dehydration. We will continue to monitor sodium (4) Diabetes mellitus: Status: Chronic Assessment and plan: A1C of 6.2. Non-insulin dependent. Continue to hold metformin in house. Continue SSI. Continue carb consistent diet. Qualifiers: Diabetes mellitus type: type 2 Diabetes mellitus assistant terminal manager insulin use: without retirement use Diabetes mellitus complication status: without complication Qualified Code(s): E11.9 - Type 2 diabetes mellitus without complications (5) Neurogenic bladder: Status: Chronic Assessment and plan: S/p suprapubic catheter. In setting of fever, catheter was changed today and UC sent (6) DVT prophylaxis: Status: Acute Assessment and plan: Enoxaparin (7) Discharge planning issues: Status: Acute Assessment and plan: Continues to require hospitalization Anticipate discharge home after completion of 5 days of abx. Discussed with Dr Bey (8) Constipation: Status: Acute Assessment and plan: Schedule bowel regimen. Could be the trigger for hypertension. Subjective Subjective Patient reports: no new complaints, bowel movement and fever (new temp noted 38.6); denies diarrhea or vomiting Interval history since last seen: Gerardo is awake alert, semi fowlers in bed requesting to go home. She developed a temp, therefore we kept her to do other diagnostic testing and treatment. She is in a agreement with the plan. Exam Narrative Exam Narrative: General: Elderly quadriplegic female with contracted BUEs who is A&Ox3, does not appear uncomfortable. HEENT: EOMI, MMM Heart: RRR, no m/r/g Lungs: CTAB anteriorly Abdomen: soft, nontender, nondistended : suprapubic catheter is draining clear yellow urine Extremities: no edema BLEs Objective Last Vital Signs Temp 38.3 C H 01/27/23 12:03 Pulse 82 01/27/23 11:58 Resp 18 01/27/23 11:58 BP 168/74 H 01/27/23 11:58 Pulse Ox 92 01/27/23 11:58 Laboratory Results - last 24 hr 01/27/23 06:30 Sodium 138 Potassium 4.5 Chloride 103 Carbon Dioxide 28.5 Anion Gap 6.5 BUN 24 H Creatinine 0.8 Est GFR (CKD-EPI 2020) 73.52 Glucose 89 Calcium 8.8 Magnesium 1.9 Time Spent with Patient Time Spent with Patient: 25-34 minutes Time was spent: preparing to see the patient(eg.review tests), ordering medications,tests, procedures, referring, communicating with other health respiratory care technician, indepentently interpreting results, counseling the patient and care coordination
--- NOTE | 2023-01-27 14:15 | NUR.NOTE ---
Called patient's daughter back at 1412. The daughter had reportedly called twice before. Left a brief message on the answering phone just to say that this nurse had returned her call.Nursing Note:
[2023-01-27 14:45] LABS: Streptococcus Pneumoniae Ag, U Negative (Negative)
--- NOTE | 2023-01-27 17:09 | PDOC.CMPRO ---
Date of service: 01/27/23 Time of Service: 17:09 Care Management Progress Note Progress Note Text Progress Note Text: S/O: Gerardo remains inpatient, no change to overall discharge plan, CM faxed updated clinicals to Elisha at [facility]. CM continues to follow. A:?82 year old female admitted to [facility] 01/23/23 with SOB P: Gerardo will be discharged home with a resumption of Home Health services when medically cleared by provider.? She will follow up with her PCP and plan of care as instructed following discharge.? She will be transported home by ambulance coordinated by CM when ready.? CM will continue to support patient and discharge planning needs.
[2023-01-27 17:27] LABS: Mycoplasma Pneumoniae PCR Negative
[2023-01-27 17:35] LABS: Abs Immature Grans 0.16 10^3/uL (0.0-0.06); Absolute Basophil Count 0.03 10^3/uL (0.0-0.2); Absolute Eosinophil Count 0.01 10^3/uL (0.0-0.7); Absolute Lymphocyte Count 1.89 10^3/uL (1.2-3.4); Absolute Neutrophil Count 7.89 10^3/uL (1.2-6.7); Basophils % 0.3; Eosinophils % 0.1; Immature Grans % 1.6; Lymphocytes % 18.4; MCH 32.1 pg (27.0-33.0); MCHC 33.3 % (32.0-36.0); MCV 96 fL (80-95); MPV 9.3 fL (8.0-11.0); Monocytes % 2.9; Neutrophils % 76.7; Platelet Count 203 10^3/uL (130-400); RBC 3.43 10^6/uL (3.93-5.22); RDW 13.7 % (11.7-14.6); WBC 10.28 10^3/uL (4.4-10.8)
[2023-01-27 17:36] LABS: Lactate 2.1 mmol/L (0.6-1.4)
[2023-01-27] MEDS: Insulin Glargine 300 UNITS/3 ML PEN 15 UNITS SC (21:08)
[2023-01-27] MEDS: Atorvastatin 10 MG TAB PO (21:08)
[2023-01-27] MEDS: Enoxaparin 40 MG/0.4 ML SYR SC (21:08)
[2023-01-27] MEDS: Gabapentin 600 MG TAB PO (21:09)
[2023-01-28] VITALS (8 sets, daily range): BP systolic 123–180; BP diastolic 62–80; PULSE 74–91; RESP 6–36; TEMP 35.4–38.3; O2SAT 90–97
--- NOTE | 2023-01-28 | DI.CT_ITS ---
Exam(s) CT CHEST/ABD/PEL WO EXAM: CT CHEST/ABD/PEL WO CLINICAL HISTORY: fever elevated lactate. TECHNIQUE: Imaging Protocol: Axial computed tomography images with coronal and sagittal reformatted images were created and reviewed CONTRAST MATERIAL: Intravenous: none Oral: None COMPARISON: CT CT CHEST/ABD/PEL WO from 12/22/2019 FINDINGS: CHEST: Posterior fusion hardware noted in the cervical spine. LUNGS: Mildly decreased left hemithoracic volume is again noted, unchanged from 2019. Also left lung scarring and multilevel mild pleural thickening remains unchanged. No pleural effusion. In the opp osite-right lung there are mild unchanged increased markings in the lateral aspect of the right upper lobe and posteriorly in the subpleural right lower lobe but unchanged from December 2019. No pleural eff usion on either side. No significant findings in trachea and mainstem bronchi. MEDIASTINUM: No obvious hilar nor mediastinal adenopathy. CARDIAC: Heart size is normal. There is no pericardial effusion.Caliber of the thoracic aorta is wit hin normal limits. OSSEOUS: No significant osseous lesions.. ABDOMEN: There is no ascites. LIVER: There are no obvious focal hepatic lesions evident of this noninfused study. Liver has a mild ly cirrhotic appearance. No obvious masses in the liver. GALLBLADDER/BILIARY: Gallbladder is again noted be surgically absent. CBD is not dilated. PANCREAS: No evidence of obvious pancreatic mass nor dilatation of the pancreatic duct. SPLEEN: Spleen is not enlarged. No obvious intrasplenic lesions. ADRENALS: Small nodule evident in the left adrenal gland measuring 8 x 8 mm. Probably previously pre sent. Probable small adenoma. No findings in the opposite-right adrenal gland. KIDNEYS: Left kidney unremarkable. Right kidney is somewhat blurred by motion artifact with difficul ty evaluating inferior pole region properly. No solid renal masses. No obstructing calculi evident. There is a suprapubic catheter in the urinary bladder. ABDOMINAL AORTA: There is a fusiform peripherally calcified infrarenal abdominal aortic aneurysm with maximum external diameter of 3.7 cm, unchanged from CT scan of December 1999. The iliac arteries are but not significantly enlarged. LYMPH NODES: There is no retroperitoneal nor para-aortic adenopathy. ABDOMINAL WALL/GI: There is an abnormal small subcutaneous collection over the anterior right abdomin al wall with overlying skin thickening. This measures approximately 2.5 cm by 1.1 cm by 1 cm and con tains a single gas bubble. There is no subjacent anterior abdominal wall hernia at this level. No o ther subcutaneous collections. No evidence of bowel obstruction. PELVIS: LYMPH NODES: There is no intrapelvic nor inguinal adenopathy. GI: No evidence of appendicitis.No evidence of sigmoid diverticulitis. URINARY BLADDER: Suprapubic catheter in place. REPRODUCTIVE: Age appropriate OSSEOUS: No significant osseous lesions. IMPRESSION: 1. Lung findings as above but unchanged from prior CT scan of December 2019. 2. Fusiform infrarenal abdominal aortic aneurysm with maximum external diameter 3.7 cm, unchanged fro m the CT scan of December 2019. 3. Abnormal subcutaneous collection over the anterior right abdominal measuring 2.5 by 1.1 x 1.0 [address] nd containing a gas bubble as well as exhibiting overlying skin thickening. Possible small subcutane ous abscess versus is post subcu injection site. 4. Suprapubic catheter noted in the urinary bladder which appears to be in satisfactory position cori dder. Bladder is not distended First read by [facility]. RADIATION DOSE DELIVERED: 1,599.56mGy.cm Total DLP DATA REPOSITORY: All CT scans at this facility are submitted to the National Radiology Data Registry (NRDR) Dose Index Registry (DIR) with the [employer] ([employer]). RADIATION OPTIMIZATION: All CT scans at this facility use at least one of these dose optimization te chniques: automated exposure control; mA and/or kV adjustment per patient size (includes targeted exa ms where dose is matched to clinical indication); or iterative reconstruction.
[2023-01-28] MEDS: PIPERACILLIN/TAZO 3.375 GM in Normal Saline 50 ML IVPB ×4 (01:46→20:22)
--- NOTE | 2023-01-28 04:07 | NUR.NOTE ---
@ 2210 01/27/23 pt was calling out help, up on arriving to pt's room pt did not know where she was. Pt started crying stating she wants to go home to her and that he might be worried not knowing where she is. This RN reorient pt to place, time and situation. Pt stated I am not sick; I can get better at home and requested to call her ; this RN asked pt if her would be up after 10 pm, the pt said no, don't call because you might wake him. The pt then verbalized wanting to go home in the morning, the pt was still anxious; this RN provided education on course of abx and disease process, and provided emotional support. Nursing Note:
[2023-01-28] MEDS: DOXYCYCLINE 100 MG in Normal Saline 100 ML IVPB ×2 (05:49→17:36)
[2023-01-28] MEDS: Levothyroxine 75 MCG TAB PO (05:49)
--- NOTE | 2023-01-28 05:58 | NUR.NOTE ---
Phoned pt's (Marcos) per pt's requet and pt talking to him ATT. Nursing Note:
[2023-01-28 06:37] LABS: Abs Immature Grans 0.14 10^3/uL (0.0-0.06); Absolute Basophil Count 0.08 10^3/uL (0.0-0.2); Absolute Eosinophil Count 0.14 10^3/uL (0.0-0.7); Absolute Lymphocyte Count 5.81 10^3/uL (1.2-3.4); Absolute Monocyte Count 0.62 10^3/uL (0.1-0.8); Absolute Neutrophil Count 5.09 10^3/uL (1.2-6.7); Basophils % 0.7; Eosinophils % 1.2; HGB 11.3 g/dL (11.2-15.7); Immature Grans % 1.2; MCH 31.9 pg (27.0-33.0); MCHC 32.3 % (32.0-36.0); MCV 99 fL (80-95); MPV 9.5 fL (8.0-11.0); Monocytes % 5.2; Neutrophils % 42.8; Platelet Count 188 10^3/uL (130-400); RBC 3.54 10^6/uL (3.93-5.22); RDW 13.8 % (11.7-14.6); RDW-SD 50.4 fL; WBC 11.89 10^3/uL (4.4-10.8)
[2023-01-28 06:48] LABS: Anion Gap 7.7 mmol/L (3-11); BUN 26 mg/dL (7-18); CO2 27.3 mmol/L (21.0-32.0); CREATININE 0.9 mg/dL (0.55-1.02); Calcium 8.8 mg/dL (8.5-10.1); Chloride 101 mmol/L (98-107); Estimated GFR 63.83 (mL/min/1.73m2); Glucose 92 mg/dL (74-106); Magnesium 1.8 mg/dL (1.8-2.4); Potassium 4.2 mmol/L (3.5-5.1); Sodium 136 mmol/L (136-145)
[2023-01-28 07:40] LABS: Diff Comment Agrees w/ Instrument; RBC Morphology Normal
[2023-01-28 07:41] LABS: Lymphocytes % 48.9
[2023-01-28] MEDS: Omeprazole 20 MG CAPCR PO (08:08)
[2023-01-28] MEDS: Cyanocobalamin 500 MCG TAB 1000 MCG PO (08:08)
[2023-01-28] MEDS: Baclofen 10 MG TAB 20 MG PO ×3 (08:08→19:34)
[2023-01-28] MEDS: Cholecalciferol (Vitamin D3) 400 UNIT TAB PO ×2 (08:08→19:34)
[2023-01-28] MEDS: Magnesium Oxide 400 MG TAB PO ×3 (08:08→19:34)
[2023-01-28] MEDS: Gabapentin 400 MG CAP PO ×2 (08:08→11:43)
[2023-01-28] MEDS: Aspirin E.C. 81 MG TABEC PO (08:08)
[2023-01-28] MEDS: Mirabegron 25 MG TABCR PO (08:08)
[2023-01-28] MEDS: Senna TAB 1 TAB PO ×2 (08:08→19:34)
[2023-01-28] MEDS: predniSONE 20 MG TAB 40 MG PO (08:09)
[2023-01-28] MEDS: Multivitamin TAB 1 TAB PO (08:09)
[2023-01-28] MEDS: Calcium Carbonate 1.25 GM TAB PO ×2 (08:09→19:34)
[2023-01-28] MEDS: Docusate Sodium 100 MG CAP PO ×2 (08:09→19:34)
[2023-01-28] MEDS: Lisinopril 2.5 MG TAB PO (08:09)
[2023-01-28] MEDS: Acetaminophen 325 MG TAB PO ×3 (08:09→22:48)
[2023-01-28] MEDS: Insulin Aspart 300 UNITS/3 ML PEN SC ×2 (12:02→17:35)
--- NOTE | 2023-01-28 13:15 | DI.RAD_ITS ---
Exam(s) XR PORTABLE CHEST AP EXAM: XR PORTABLE CHEST AP CLINICAL HISTORY: elevated WBC. TECHNIQUE: 2D digital imaging was performed. COMPARISON: CR XR CHEST 1V IN DI DEPT from 12/03/2022 CR,XR XR CHEST 2V PA LATERAL from 01/23/2023 FINDINGS: Single AP portable view. Multilevel fusion hardware in posterior cervical spine again noted. Heart size is upper normal. The mediastinum is not widened. Mild increased interstitial markings again noted, mild Mundo B lines in the lateral right lung base, probably indicating an element of mild interstitial pulmonary edema. No large pleural effusion is e vident. No obvious focal consolidation. IMPRESSION: Probable mild interstitialpulmonary edema. DATA REPOSITORY: RADIATION DOSE DELIVERED:
--- NOTE | 2023-01-28 13:32 | CMPROGNOTE_ITS ---
Date of service: 01/28/23 Time of Service: 13:32 Care Management Progress Note Progress Note Text Progress Note Text: S/O: Gerardo remains inpatient and may discharge this afternoon after her last dose of IV ABX. No change to overall discharge plan, CM continues to follow. A:?82 year old female admitted to [facility] 01/23/23 with SOB P: Gerardo will be discharged home with a resumption of [facility]/E [facility] RN/PT services when medically cleared by provider.? She will follow up with her PCP and plan of care as instructed following discharge.? She will be transported home by ambulance coordinated by CM when ready.? CM will continue to support patient and discharge planning needs.
[2023-01-28 14:10] LABS: Bilirubin Negative (Negative); Blood Trace-lysed (Negative); Clarity Clear (Clear); Glucose Negative (Negative); Ketones Negative (Negative); Leukocyte Esterase Negative (Negative); Nitrite Negative (Negative); Specific Gravity 1.015 (1.005-1.025); Urobilinogen 0.2 mg/dL (Up to 0.2)
[2023-01-28 14:12] LABS: Bacteria Negative HPF (Negative); C & S Indicated? No; Casts Negative LPF (Negative); Crystals Negative HPF (Negative); Epithelial Cells Rare HPF (Negative); Mucus Negative (Negative); Other Cells Negative (Negative); WBC 0-2 HPF (0-5)
--- NOTE | 2023-01-28 14:55 | W.PM.PROGNOT ---
Date of Service Date of service: 01/28/23 Time of Service: 14:56 Assessment and Plan Assessment and plan (1) Pneumonia: Status: Acute Assessment and plan: Clinically stalled and not feeling great today, max temp 38.02. will re-culture and repeat CXR, if negative consider CT scan. doubt pressure sore but continue closely monitoring. Continue doxycycline, zosyn (Day 5/5), steroids, prn nebs. encourage pulmonary toileting Legionella urine Ag negative. Strep urine antigen and sputum for mycoplasma negative. MRSA nares negative. Sputum C&S pending Await pulmonology consult, not available this week. notes: Failed levofloxacin as outpatient. H/o tobacco abuse, ILD. (2) Hypertension: Status: Chronic Assessment and plan: Not on medications at home and does have NIDDM2 and h/o AAA, so even though there may be a component of autonomic dysfunction associated with the constipation in setting of quadriplegia causing the hypertension, given baseline hypertension and h/o AAA as well as a h/o intracranial aneurysm (3) Hyponatremia: Status: Resolved Assessment and plan: Acute on chronic, resolved, in setting of dehydration. We will continue to monitor sodium (4) Diabetes mellitus: Status: Chronic Assessment and plan: A1C of 6.2. Non-insulin dependent. Continue to hold metformin in house. Continue SSI. Continue carb consistent diet. Qualifiers: Diabetes mellitus complication status: without complication Diabetes mellitus extermination inspector insulin use: without penitentiary use Diabetes mellitus type: type 2 Qualified Code(s): E11.9 - Type 2 diabetes mellitus without complications (5) Neurogenic bladder: Status: Chronic Assessment and plan: S/p suprapubic catheter. In setting of fever, catheter was changed today 01/27 and UA sent today was negative (6) DVT prophylaxis: Status: Acute Assessment and plan: Enoxaparin (7) Discharge planning issues: Status: Acute Assessment and plan: Continues to require hospitalization Anticipate discharge home with resumption of home health once medically stable Discussed with Dr Bey (8) Constipation: Status: Acute Assessment and plan: Schedule bowel regimen. Could be the trigger for hypertension. Subjective Subjective Patient reports: no new complaints and fever (max temp 38.02); denies shortness of breath Interval history since last seen: denies cough or sob. liu draining clear yellow urine, no source of obvious untreated infection to explain fever noted. no abd pain Exam Const General: cooperative and no acute distress Orientation: alert, awake and oriented x3 HENMT Head: normal to inspection Ears: hearing grossly normal bilaterally Face and sinus: normal facial exam Mouth: oral mucosae normal Eyes General: appearance normal, both eyes and all related structures Neck Neck: normal visual inspection and supple Resp Effort & Inspection: normal respiratory effort and able to speak in complete sentences Cardio Rate: regular rate Rhythm: regular rhythm Skin Lesions: other (pressure area on coccyx covered with mepilex, no drainage or erythema) Rashes: no rashes Neuro General: patient alert, patient awake and patient oriented x3 Cognition: normal cognition Speech: abnormal speech stuttering (baseline) Extrem Other: Atrophic appearing bilateral lower extremities. Contracted upper extremities Psych Appearance: grossly normal Mental Status: mental status grossly normal Affect: normal affect Objective Last Vital Signs Temp 35.4 C L 01/28/23 11:21 Pulse 85 01/28/23 11:21 Resp 30 H 01/28/23 11:21 BP 180/71 H 01/28/23 11:21 Pulse Ox 90 L 01/28/23 11:21 Laboratory Results - last 24 hr 01/24/23 01/25/23 01/27/23 11:55 06:00 17:28 WBC 10.28 RBC 3.43 L Hgb 11.0 L Hct 33.0 L MCV 96 H MCH 32.1 MCHC 33.3 RDW 13.7 Plt Count 203 MPV 9.3 Immature Gran % 1.6 Neutrophils % 76.7 Lymphocytes % 18.4 Monocytes % 2.9 Eosinophils % 0.1 Basophils % 0.3 Nucleated RBC % 0.0 Absolute Neutrophils 7.89 H Absolute Lymphocytes 1.89 Absolute Monocytes 0.30 Absolute Eosinophils 0.01 Absolute Basophils 0.03 RBC Morphology VBG Lactate Sodium Potassium Chloride Carbon Dioxide Anion Gap BUN Creatinine Est GFR (CKD-EPI 2020) Glucose Calcium Magnesium Procalcitonin Urine Color Urine Clarity Urine pH Ur Specific [place] Urine Protein Urine Ketones Urine Blood Urine Nitrite Urine Bilirubin Urine Urobilinogen Ur Leukocyte Esterase Urine RBC Urine WBC Ur Epithelial Cells Urine Crystals Urine Bacteria Urine Casts Urine Mucus Urine Other Ur Culture Indicated? Urine Glucose M. pneumoniae Source Not Applicable M. pneumoniae (PCR) Negative Ur Strep pneumoniae Ag Negative 06/13/23 06/14/23 06/14/23 17:28 06:16 06:16 WBC 11.89 H RBC 3.54 L Hgb 11.3 Hct 35.0 L MCV 99 H MCH 31.9 MCHC 32.3 RDW 13.8 Plt Count 188 MPV 9.5 Immature Gran % 1.2 Neutrophils % 42.8 Lymphocytes % 48.9 Monocytes % 5.2 Eosinophils % 1.2 Basophils % 0.7 Nucleated RBC % 0.0 Absolute Neutrophils 5.09 Absolute Lymphocytes 5.81 H Absolute Monocytes 0.62 Absolute Eosinophils 0.14 Absolute Basophils 0.08 RBC Morphology Normal VBG Lactate 2.1 H Sodium 136 Potassium 4.2 Chloride 101 Carbon Dioxide 27.3 Anion Gap 7.7 BUN 26 H Creatinine 0.9 Est GFR (CKD-EPI 2020) 63.83 Glucose 92 Calcium 8.8 Magnesium 1.8 Procalcitonin Urine Color Urine Clarity Urine pH Ur Specific [place] Urine Protein Urine Ketones Urine Blood Urine Nitrite Urine Bilirubin Urine Urobilinogen Ur Leukocyte Esterase Urine RBC Urine WBC Ur Epithelial Cells Urine Crystals Urine Bacteria Urine Casts Urine Mucus Urine Other Ur Culture Indicated? Urine Glucose M. pneumoniae Source M. pneumoniae (PCR) Ur Strep pneumoniae Ag 01/28/23 01/28/23 13:52 Unknown WBC RBC Hgb Hct MCV MCH MCHC RDW Plt Count MPV Immature Gran % Neutrophils % Lymphocytes % Monocytes % Eosinophils % Basophils % Nucleated RBC % Absolute Neutrophils Absolute Lymphocytes Absolute Monocytes Absolute Eosinophils Absolute Basophils RBC Morphology VBG Lactate Cancelled Sodium Potassium Chloride Carbon Dioxide Anion Gap BUN Creatinine Est GFR (CKD-EPI 2020) Glucose Calcium Magnesium Procalcitonin Cancelled Urine Color Yellow Urine Clarity Clear Urine pH 7.0 Ur Specific [place] 1.015 Urine Protein 30 H Urine Ketones Negative Urine Blood Trace-lysed H Urine Nitrite Negative Urine Bilirubin Negative Urine Urobilinogen 0.2 Ur Leukocyte Esterase Negative Urine RBC 3-5 H Urine WBC 0-2 Ur Epithelial Cells Rare Urine Crystals Negative Urine Bacteria Negative Urine Casts Negative Urine Mucus Negative Urine Other Negative Ur Culture Indicated? No Urine Glucose Negative M. pneumoniae Source M. pneumoniae (PCR) Ur Strep pneumoniae Ag Time Spent with Patient Time Spent with Patient: 35-49 minutes Time was spent: preparing to see the patient(eg.review tests), ordering medications,tests, procedures, referring, communicating with other health home care chaplain, indepentently interpreting results, counseling the patient and care coordination
[2023-01-28 17:27] LABS: Lactate 3.2 mmol/L (0.6-1.4)
[2023-01-28 18:12] LABS: Procalcitonin 0.1 ng/mL
[2023-01-28] MEDS: Normal Saline 1,000 ML 250 ML IV (19:24)
[2023-01-28] MEDS: Normal Saline Flush 10 ML SYR IVP (19:33)
[2023-01-28] MEDS: Atorvastatin 10 MG TAB PO (19:33)
--- NOTE | 2023-01-28 20:39 | DI.VRAD_ITS ---
PROCEDURE INFORMATION: Exam: CT Chest Without Contrast; Diagnostic Exam date and time: 01/28/2023 8:01 PM Age: 82 years old Clinical indication: Other: Fever, eval lactate TECHNIQUE: Imaging protocol: Diagnostic computed tomography of the chest without contrast. COMPARISON: CT CHEST/ABD/PEL WO 12/22/2019 12:21 AM FINDINGS: Lungs: Biapical pleuroparenchymal scarring. Mild bibasilar atelectasis and/or scarring. Mild bilateral upper and lower lobe bronchial wall thickening, with endobronchial material in the left lower lobe bronchi, most compatible with reactive airway disease or bronchitis. Pleural spaces: Small left pleural effusion. Heart: Calcification of the aortic valve annulus. Coronary arteries: Moderate three-vessel coronary artery atherosclerotic disease. Lymph nodes: No enlarged lymph nodes. Vasculature: Atherosclerotic calcification of the thoracic aorta, without aneurysm. Bones/joints: No acute fracture. Soft tissues: Normal. IMPRESSION: 1. Small left pleural effusion. 2. Mild bilateral upper and lower lobe bronchial wall thickening, with endobronchial material in the left lower lobe bronchi, most compatible with reactive airway disease or bronchitis. PROCEDURE INFORMATION: Exam: CT Abdomen And Pelvis Without Contrast Exam date and time: 01/28/2023 8:01 PM Age: 82 years old Clinical indication: Other: Fever, eval lactate TECHNIQUE: Imaging protocol: Computed tomography of the abdomen and pelvis without contrast. COMPARISON: CT CHEST/ABD/PEL WO 12/22/2019 12:21 AM FINDINGS: Liver: Nodular hepatic peripheral contour, compatible with cirrhosis. Gallbladder and bile ducts: Gallbladder surgically absent. Pancreas: Normal. Spleen: Normal. Adrenal glands: Mild bilateral adrenal hyperplasia. Kidneys and ureters: Normal. Stomach and bowel: Multiple loops of nondilated, gas and fluid-filled small and large bowel, likely enteritis/diarrhea. Appendix: No evidence of appendicitis. Intraperitoneal space: Unremarkable. No free air. No significant fluid collection. Vasculature: Atherosclerotic disease of the abdominal aorta and iliac arteries, with infrarenal abdominal aortic aneurysm measuring 3.3 cm in AP diameter by 3.6 cm in transverse dimension, similar to comparison study. No evidence of leakage or rupture. Phleboliths within the pelvis. Lymph nodes: Unremarkable. No enlarged lymph nodes. Urinary bladder: Urinary bladder decompressed by Dodson catheter. Reproductive: Unremarkable as visualized. Bones/joints: Generalized bony demineralization. Multilevel lumbar spine degenerative disc space narrowing and osteophyte formation. Minimal levoscoliosis of the lumbar spine. Soft tissues: Normal. IMPRESSION: Multiple loops of nondilated, gas and fluid-filled small and large bowel, likely enteritis/diarrhea. Dictated and Authenticated by: Reese Kothari MD. Ordering:AMILCAR Pal MD
[2023-01-28] MEDS: Enoxaparin 40 MG/0.4 ML SYR SC (21:47)
[2023-01-28] MEDS: Insulin Glargine 300 UNITS/3 ML PEN 15 UNITS SC (22:00)
[2023-01-28] MEDS: Albuterol/Ipratropium 3 ML UPD VIAL UPD (22:34)
[2023-01-28] MEDS: Bisacodyl 10 MG SUPP PR (23:45)
[2023-01-28] MEDS: Polyethylene Glycol 3350 17 GM PACKET PO (23:45)
[2023-01-28] MEDS: Gabapentin 600 MG TAB PO (23:48)
[2023-01-29] MEDS: PIPERACILLIN/TAZO 3.375 GM in Normal Saline 50 ML IVPB ×4 (02:30→20:10)
[2023-01-29] MEDS: Normal Saline Flush 10 ML SYR IVP ×3 (02:31→16:30)
[2023-01-29 02:50] VITALS: BP 150/73; PULSE 74; RESP 22; TEMP 36.6; O2SAT 93
[2023-01-29] MEDS: DOXYCYCLINE 100 MG in Normal Saline 100 ML IVPB ×2 (04:52→17:18)
[2023-01-29] MEDS: Levothyroxine 75 MCG TAB PO (04:52)
[2023-01-29 08:51] VITALS: BP 152/67; PULSE 69; RESP 20; TEMP 37; O2SAT 97
[2023-01-29] MEDS: Omeprazole 20 MG CAPCR PO (09:24)
[2023-01-29] MEDS: Cholecalciferol (Vitamin D3) 400 UNIT TAB PO ×2 (09:24→20:13)
[2023-01-29] MEDS: Cyanocobalamin 500 MCG TAB 1000 MCG PO (09:24)
[2023-01-29] MEDS: predniSONE 20 MG TAB 40 MG PO (09:24)
[2023-01-29] MEDS: Senna TAB 1 TAB PO ×2 (09:24→20:13)
[2023-01-29] MEDS: Multivitamin TAB 1 TAB PO (09:24)
[2023-01-29] MEDS: Aspirin E.C. 81 MG TABEC PO (09:24)
[2023-01-29] MEDS: Magnesium Oxide 400 MG TAB PO ×3 (09:24→20:14)
[2023-01-29] MEDS: Calcium Carbonate 1.25 GM TAB PO ×2 (09:25→20:13)
[2023-01-29] MEDS: Lisinopril 2.5 MG TAB PO (09:25)
[2023-01-29] MEDS: Baclofen 10 MG TAB 20 MG PO ×3 (09:25→20:13)
[2023-01-29] MEDS: Mirabegron 25 MG TABCR PO (09:25)
[2023-01-29] MEDS: Docusate Sodium 100 MG CAP PO ×2 (09:25→20:13)
[2023-01-29] MEDS: Gabapentin 400 MG CAP PO ×2 (09:25→11:01)
[2023-01-29 10:08] LABS: Lactate 1.7 mmol/L (0.6-1.4)
[2023-01-29 10:11] LABS: Abs Immature Grans 0.08 10^3/uL (0.0-0.06); Absolute Basophil Count 0.07 10^3/uL (0.0-0.2); Absolute Eosinophil Count 0.26 10^3/uL (0.0-0.7); Absolute Lymphocyte Count 3.76 10^3/uL (1.2-3.4); Absolute Neutrophil Count 6.89 10^3/uL (1.2-6.7); Basophils % 0.6; Eosinophils % 2.2; HCT 33.6 % (36.0-46.0); HGB 10.8 g/dL (11.2-15.7); Immature Grans % 0.7; Lymphocytes % 32.4; MCHC 32.1 % (32.0-36.0); MCV 99 fL (80-95); MPV 9.6 fL (8.0-11.0); Monocytes % 4.7; Neutrophils % 59.4; Platelet Count 183 10^3/uL (130-400); RBC 3.38 10^6/uL (3.93-5.22); RDW 13.5 % (11.7-14.6); RDW-SD 48.8 fL
[2023-01-29 10:12] LABS: Absolute Monocyte Count 0.55 10^3/uL (0.1-0.8)
[2023-01-29 10:28] VITALS: O2SAT 94
[2023-01-29 10:28] LABS: ALT 40 U/L (14-59); AST 18 U/L (15-37); Albumin 2.9 g/dL (3.4-5.0); Alkaline Phosphatase 41 U/L (46-116); Anion Gap 7.5 mmol/L (3-11); BUN 19 mg/dL (7-18); Bilirubin, Total 0.5 mg/dL (0.2-1.0); CO2 29.5 mmol/L (21.0-32.0); CREATININE 0.8 mg/dL (0.55-1.02); Calcium 8.5 mg/dL (8.5-10.1); Chloride 104 mmol/L (98-107); Estimated GFR 73.52 (mL/min/1.73m2); Glucose 142 mg/dL (74-106); Potassium 4.1 mmol/L (3.5-5.1); Sodium 141 mmol/L (136-145); Total Protein 6.6 g/dL (6.4-8.2)
[2023-01-29] MEDS: guaiFENesin 600 MG TABCR PO ×2 (11:01→20:14)
[2023-01-29] MEDS: Normal Saline 1,000 ML 100 ML IV (11:03)
--- NOTE | 2023-01-29 11:04 | PGE_ITS ---
Date of Service Date of service: 01/29/23 Time of Service: 11:04 Assessment and Plan Assessment and plan (1) Pneumonia: Status: Acute Assessment and plan: no fever overnight, feeling better, labs improved after fluid bolus. no source of new infection. will extend course of abx. doubt pressure sore but continue closely monitoring. Continue doxycycline, zosyn (Day 5/7), steroids, prn nebs. encourage pulmonary toileting Legionella urine Ag negative. Strep urine antigen and sputum for mycoplasma negative. MRSA nares negative. Sputum C&S pending Await pulmonology consult notes: Failed levofloxacin as outpatient. H/o tobacco abuse, ILD. (2) Hypertension: Status: Chronic Assessment and plan: Not on medications at home and does have NIDDM2 and h/o AAA, so even though there may be a component of autonomic dysfunction associated with the constipation in setting of quadriplegia causing the hypertension, given baseline hypertension and h/o AAA as well as a h/o intracranial aneurysm (3) Hyponatremia: Status: Resolved Assessment and plan: Acute on chronic, resolved, in setting of dehydration. We will continue to monitor sodium (4) Diabetes mellitus: Status: Chronic Assessment and plan: A1C of 6.2. Non-insulin dependent. Continue to hold metformin in house. Continue SSI. Continue carb consistent diet. Qualifiers: Diabetes mellitus complication status: without complication Diabetes mellitus extermination inspector insulin use: without extermination inspector use Diabetes mellitus type: type 2 Qualified Code(s): E11.9 - Type 2 diabetes mellitus without complications (5) Neurogenic bladder: Status: Chronic Assessment and plan: S/p suprapubic catheter. In setting of fever, catheter was changed today 01/27 and UA sent today was negative (6) DVT prophylaxis: Status: Acute Assessment and plan: Enoxaparin (7) Discharge planning issues: Status: Acute Assessment and plan: Continues to require hospitalization Anticipate discharge home with resumption of home health once medically stable Discussed with Dr Bey (8) Constipation: Status: Acute Assessment and plan: Schedule bowel regimen. Could be the trigger for hypertension. Subjective Subjective Patient reports: afebrile Interval history since last seen: no fever overnight, reporting cough Exam Const General: cooperative and no acute distress Orientation: alert, awake and oriented x3 HENMT Head: normal to inspection Ears: hearing grossly normal bilaterally Face and sinus: normal facial exam Mouth: oral mucosae normal Eyes General: appearance normal, both eyes and all related structures Neck Neck: normal visual inspection and supple Resp Effort & Inspection: normal respiratory effort and able to speak in complete sentences Cardio Rate: regular rate Rhythm: regular rhythm Skin Lesions: other (pressure area on coccyx covered with mepilex, no drainage or e rythema) Rashes: no rashes Neuro General: patient alert, patient awake and patient oriented x3 Cognition: normal cognition Speech: abnormal speech stuttering (baseline) Extrem Other: Atrophic appearing bilateral lower extremities. Contracted upper extremities Psych Appearance: grossly normal Mental Status: mental status grossly normal Affect: normal affect Objective Last Vital Signs Temp 37 C 01/29/23 08:51 Pulse 69 01/29/23 08:51 Resp 20 01/29/23 08:51 BP 152/67 H 01/29/23 08:51 Pulse Ox 94 01/29/23 10:28 Laboratory Results - last 24 hr 01/28/23 01/28/23 01/28/23 13:52 17:15 Unknown WBC RBC Hgb Hct MCV MCH MCHC RDW Plt Count MPV Immature Gran % Neutrophils % Lymphocytes % Monocytes % Eosinophils % Basophils % Nucleated RBC % Absolute Neutrophils Absolute Lymphocytes Absolute Monocytes Absolute Eosinophils Absolute Basophils VBG Lactate 3.2 H* Cancelled Sodium Potassium Chloride Carbon Dioxide Anion Gap BUN Creatinine Est GFR (CKD-EPI 2020) Glucose Calcium Total Bilirubin AST ALT Alkaline Phosphatase Total Protein Albumin Procalcitonin 0.1 Cancelled Urine Color Yellow Urine Clarity Clear Urine pH 7.0 Ur Specific [place] 1.015 Urine Protein 30 H Urine Ketones Negative Urine Blood Trace-lysed H Urine Nitrite Negative Urine Bilirubin Negative Urine Urobilinogen 0.2 Ur Leukocyte Esterase Negative Urine RBC 3-5 H Urine WBC 0-2 Ur Epithelial Cells Rare Urine Crystals Negative Urine Bacteria Negative Urine Casts Negative Urine Mucus Negative Urine Other Negative Ur Culture Indicated? No Urine Glucose Negative 01/29/23 01/29/23 01/29/23 09:58 09:58 09:58 WBC 11.60 H RBC 3.38 L Hgb 10.8 L Hct 33.6 L MCV 99 H MCH 32.0 MCHC 32.1 RDW 13.5 Plt Count 183 MPV 9.6 Immature Gran % 0.7 Neutrophils % 59.4 Lymphocytes % 32.4 Monocytes % 4.7 Eosinophils % 2.2 Basophils % 0.6 Nucleated RBC % 0.0 Absolute Neutrophils 6.89 H Absolute Lymphocytes 3.76 H Absolute Monocytes 0.55 Absolute Eosinophils 0.26 Absolute Basophils 0.07 VBG Lactate 1.7 H Sodium 141 Potassium 4.1 Chloride 104 Carbon Dioxide 29.5 Anion Gap 7.5 BUN 19 H Creatinine 0.8 Est GFR (CKD-EPI 2020) 73.52 Glucose 142 H Calcium 8.5 Total Bilirubin 0.5 AST 18 ALT 40 Alkaline Phosphatase 41 L Total Protein 6.6 Albumin 2.9 L Procalcitonin Urine Color Urine Clarity Urine pH Ur Specific [place] Urine Protein Urine Ketones Urine Blood Urine Nitrite Urine Bilirubin Urine Urobilinogen Ur Leukocyte Esterase Urine RBC Urine WBC Ur Epithelial Cells Urine Crystals Urine Bacteria Urine Casts Urine Mucus Urine Other Ur Culture Indicated? Urine Glucose Time Spent with Patient Time Spent with Patient: 25-34 minutes Time was spent: preparing to see the patient(eg.review tests), obtaining and/or reviewing separately otained hiistory, ordering medications,tests, procedures, referring, communicating with other health career coach, indepentently interpreting results and counseling the patient
[2023-01-29 11:10] VITALS: BP 135/76; PULSE 79; RESP 20; TEMP 37.4; O2SAT 90
--- NOTE | 2023-01-29 11:32 | W.PULMCON ---
General Date Of Service Date of service: 01/29/23 Time of Service: 11:33 Reason for Consult: Non resolving Pneumonia Assessment and Plan Assessment and plan (1) Pneumonia: Status: Acute (2) Interstitial lung disease: (3) Quadriplegia: Status: Acute Assessment and plan: This is a 82 yo with left pleural thickening on CT and ILD who is admitted for pneumonia. Her infectious work up is grossly negative and I am unimpressed by the CT for pneumonia. It is reasonable to continue CAP coverage given the symptoms she is having. I worry that her pleural thickening represents malignancy such as mesothelioma given its nodular appearance. She does have talc exposure. Alternatively, this could be related to prior breast cancer treatment or possibly related to her ILD. Regardless I think she should have an outpatient PET/CT which I will arrange. On POCUS today the left side does have a pleural effusion that is likely simple in nature. It is small to moderate in size and could be accessed if needed, however I am hesitant to be aggressive about draining the space unless clinically necessary. I believe the possible abscess seen on CT scan is a hematoma from a Lovenox shot. I will plan on working up her ILD as an outpatient. Left pleural thickening - outpatient PET/CT at [facility] - I will order Left pleural effusion - I will reassess this as an outpatient Pneumonia - I do not feel strongly that she has a pneumonia, reasonable to continue doxy for a 5 day course ILD - will work up as an outpatient History of Present Illness Narrative: This is an 82 yo with a diagnosis of ILD (although has never seen pulmonary) who was admitted 01/23/23 for pneumonia. Her chest CT is not overly impressive with pneumonia, however there is some sign of interstitial reticulations consistent with ILD. I am concerned that her left pleura is thickened and nodular on CT. She endorses significant talc exposure (baby powder) and has a 25 pack year smoking history. She is coughing and have congestion which is atypical for her and has had fever. Her procalcitonin is negative and her WBC count is not impressive. The CT scan also finds an abdominal wall fluid collection on the right with concern for abscess. Review of Systems All systems reviewed & are unremarkable except as noted in HPI and below PFSH All Active Problems (Updated 01/29/23 @ 14:25 by Grace Loco MD) Advanced care planning/counseling discussion (Acute) Quadriplegia (Acute) Palliative care encounter (Acute) Constipation (Acute) Discharge planning issues (Acute) DVT prophylaxis (Acute) Shortness of breath (Acute) Pneumonia (Acute) Acute UTI (Acute) Spinal stenosis, lumbar (Acute) Primary malignant neoplasm of breast (Acute) Neurogenic claudication (Acute) Hypothyroidism (Chronic) Hypertension (Chronic) Constipation due to neurogenic bowel (Acute) Benign neoplasm of colon (Acute) Autonomic dysreflexia (Acute) Arm edema (Acute) Nail dystrophy (Acute) UTI (urinary tract infection) (Acute) Transaminitis (Acute) Bladder spasm (Acute) COVID-19 ruled out (Acute) Neuropathic pain of finger of right hand (Acute) Fungal dermatitis (Acute) Chronic suprapubic catheter (Chronic) Hypomagnesemia (Acute) Acute UTI (Acute) Infiltrate of lung present on imaging of chest (Acute) UTI (urinary tract infection) (Acute) Hyperlipemia (Chronic) Intracranial aneurysm (Chronic) AAA (abdominal aortic aneurysm) (Chronic) Suprapubic catheter (Chronic) Diabetes mellitus (Chronic) Neurogenic bladder (Chronic) Paraplegia (Chronic) Medical History Cervical disc disorder CTS (carpal tunnel syndrome) left wrist ESBL (extended spectrum beta-lactamase) producing bacteria infection History of breast cancer Interstitial lung disease Pressure ulcer Surgical History H/O breast surgery H/O cervical spine surgery S/P cholecystectomy S/P rotator cuff repair S/P trigger finger release S/P tubal ligation Social History (Updated 01/23/23 @ 22:09 by Armen Parker) Smoking/Tobacco Use Status: Former Tobacco Use Quit Date: 08/17/06 Pack-years: 40 Smoking risk assessment performed?: Yes Alcohol Intake: never Drug use: Never Substance use type: does not use Current gender identity: female Do you feel safe at home: Yes Do you feel safe in your relationship?: Yes Additional Social history: lives with her in [place], [place]. Has home health. Visit Medication and Allergies Active Medications Generic Name Dose Route Start Last Admin Trade Name Freq PRN Reason Stop Dose Admin Acetaminophen 325 - 650 mg 01/23/23 21:10 01/28/23 22:48 Acetaminophen 325 Mg Tab PO 650 mg Q4H PRN PRN Administration Albuterol/Ipratropium 3 ml 01/25/23 14:38 01/28/23 22:34 Albuterol/Ipratropium 3 Ml Upd Vial UPD 3 ml Q4H PRN PRN Administration Wheezing, Shortness of Breath Aspirin 81 mg 01/24/23 08:30 01/29/23 09:24 Aspirin E.C. 81 Mg Tabec PO 81 mg DAILY CHIP Administration Atorvastatin Calcium 10 mg 01/23/23 22:00 01/28/23 19:33 Atorvastatin 10 Mg Tab PO 10 mg QPM CHIP Administration Baclofen 20 mg 01/24/23 08:30 01/29/23 09:25 Baclofen 10 Mg Tab PO 20 mg TID CHIP Administration Bisacodyl 10 mg 01/26/23 13:37 01/28/23 23:45 Bisacodyl 10 Mg Supp FL 10 mg DAILY PRN PRN Administration Calcium Carbonate 1.25 gm 01/24/23 08:30 01/29/23 09:25 Calcium Carbonate 1.25 Gm Tab PO 1.25 gm BID CHIP Administration Cholecalciferol 400 unit 01/24/23 08:30 01/29/23 09:24 Cholecalciferol (Vitamin D3) 400 Unit Tab PO 400 unit BID CHIP Administration Cyanocobalamin 1,000 mcg 01/24/23 08:30 01/29/23 09:24 Cyanocobalamin 500 Mcg Tab PO 1,000 mcg DAILY CHIP Administration Dextrose 0 gm 01/23/23 21:18 Glucose Oral Gel 15 Gm/37.5 Gm Tube PO DIRECTED PRN Dextrose/Water 0 gm 01/23/23 21:18 Dextrose 50%-Water 25 Gm/50 Ml Syr IVP DIRECTED PRN Dimethicone/Zinc Oxide 0 gm 01/23/23 21:10 Jim Protect Cream 142 Gm Tube TP PRN PRN Docusate Sodium 100 mg 01/26/23 20:00 01/29/23 09:25 Docusate Sodium 100 Mg Cap PO 100 mg BID CHIP Administration Enoxaparin Sodium 40 mg 01/23/23 22:00 01/28/23 21:47 Enoxaparin 40 Mg/0.4 Ml Syr SC 40 mg Q24H CHIP Administration Gabapentin 600 mg 01/23/23 22:00 01/28/23 23:48 Gabapentin 600 Mg Tab PO 600 mg HS CHIP Administration Gabapentin 400 mg 01/24/23 12:00 01/29/23 11:01 Gabapentin 400 Mg Cap PO 400 mg 0800,1200 CHIP Administration Guaifenesin 600 mg 01/29/23 10:55 01/29/23 11:01 Guaifenesin 600 Mg Tabcr PO 600 mg BID CHIP Administration Doxycycline Hyclate 100 mg/ 100 mls @ 100 mls/hr 01/24/23 06:00 01/29/23 08:33 Sodium Chloride IVPB Infused Q12H CHIP Infusion Piperacillin Sod/Tazobactam 50 mls @ 100 mls/hr 01/24/23 08:00 01/29/23 10:12 Sod 3.375 gm/ Sodium Chloride IVPB Infused Q6H CHIP Infusion Sodium Chloride 500 mls @ 0 mls/hr 01/24/23 09:20 01/26/23 14:28 Saline 500ml Bag IV 30 mls/hr PRN PRN Administration As Directed Sodium Chloride 1,000 mls @ 100 mls/hr 01/29/23 11:00 01/29/23 11:03 Saline 1000ml Bag IV 01/29/23 20:59 100 mls/hr INFUSION CHIP Administration IV Miscellaneous Supplies 1 each 01/25/23 12:45 Iv Access IV DIRECTED [facility] Insulin Aspart 0 - 9 units 01/24/23 08:00 01/29/23 08:35 Insulin Aspart 300 Units/3 Ml Pen SC Not Given 0800,1200,1700 [facility] Protocol Insulin Glargine 15 units 01/24/23 22:00 01/28/23 22:00 Insulin Glargine 300 Units/3 Ml Pen SC 15 unit HS CHIP Administration Levothyroxine Sodium 75 mcg 01/24/23 06:00 01/29/23 04:52 Levothyroxine 75 Mcg Tab PO 75 mcg 0600 [facility] Administration Lisinopril 2.5 mg 01/27/23 08:30 01/29/23 09:25 Lisinopril 2.5 Mg Tab PO 2.5 mg DAILY CHIP Administration Magnesium Oxide 400 mg 01/26/23 08:30 01/29/23 09:24 Magnesium Oxide 400 Mg Tab PO 400 mg TID CHIP Administration Metformin HCl 1,000 mg 01/24/23 08:00 01/24/23 08:47 Metformin 500 Mg Tab PO 1,000 mg 0800,1630 [facility] Administration Mirabegron 25 mg 01/24/23 08:30 01/29/23 09:25 Mirabegron 25 Mg Tabcr PO 25 mg DAILY CHIP Administration Multivitamins 1 tab 01/24/23 08:30 01/29/23 09:24 Multivitamin Tab PO 1 tab DAILY CHIP Administration Omeprazole 20 mg 01/24/23 07:30 01/29/23 09:24 Omeprazole 20 Mg Capcr PO 20 mg DAILY@0730 CHIP Administration Ondansetron HCl 4 mg 01/23/23 21:15 Ondansetron O.D.T. 4 Mg Tabef PO Q8H PRN PRN Polyethylene Glycol 17 gm 01/26/23 13:37 01/28/23 23:45 Polyethylene Glycol 3350 17 Gm Packet PO 17 gm DAILY PRN PRN Administration Prednisone 40 mg 01/25/23 08:30 01/29/23 09:24 Prednisone 20 Mg Tab PO 40 mg DAILY CHIP Administration Sennosides 1 tab 01/26/23 20:00 01/29/23 09:24 Senna Tab PO 1 tab BID CHIP Administration Sodium Chloride 0 ml 01/25/23 12:34 01/29/23 09:24 Normal Saline Flush 10 Ml Syr IVP 40 ml PRN PRN Administration Allergies ibuprofen Adverse Reaction (Mild, Unverified 01/23/23 17:32) Nausea Exam Narrative Exam Narrative: Gen: NAD, normal respiratory effort, well-nourished HENT: PERRL, nasal turbinates normal without erythema or inflammation, moist oral mucosa, Mallampati 2, No LAD or JVD Chest: No respiratory distress, normal appearance of chest, coarse crackles bilaterally and intermittently Heart: regular rate and rhythym, no murmurs, rubs or gallops Abdomen: Non-distended, soft, non tender, right abdominal bruise (from Lovenox) with hard 2cm likely hematoma Extremities: No clubbing, edema, cyanosis, rashes Neuro: AAOx3 , non focal Psych: cooperative, appropriate mental affect Results Last Vital Signs Temp 37.4 C 01/29/23 11:10 Pulse 79 01/29/23 11:10 Resp 20 01/29/23 11:10 BP 135/76 01/29/23 11:10 Pulse Ox 90 L 01/29/23 11:10 Labs 01/29/23 09:58 01/29/23 09:58 Labs: Laboratory Results - last 24 hr 01/28/23 01/28/23 01/28/23 13:52 17:15 Unknown WBC RBC Hgb Hct MCV MCH MCHC RDW Plt Count MPV Immature Gran % Neutrophils % Lymphocytes % Monocytes % Eosinophils % Basophils % Nucleated RBC % Absolute Neutrophils Absolute Lymphocytes Absolute Monocytes Absolute Eosinophils Absolute Basophils VBG Lactate 3.2 H* Cancelled Sodium Potassium Chloride Carbon Dioxide Anion Gap BUN Creatinine Est GFR (CKD-EPI 2020) Glucose Calcium Total Bilirubin AST ALT Alkaline Phosphatase Total Protein Albumin Procalcitonin 0.1 Cancelled Urine Color Yellow Urine Clarity Clear Urine pH 7.0 Ur Specific [place] 1.015 Urine Protein 30 H Urine Ketones Negative Urine Blood Trace-lysed H Urine Nitrite Negative Urine Bilirubin Negative Urine Urobilinogen 0.2 Ur Leukocyte Esterase Negative Urine RBC 3-5 H Urine WBC 0-2 Ur Epithelial Cells Rare Urine Crystals Negative Urine Bacteria Negative Urine Casts Negative Urine Mucus Negative Urine Other Negative Ur Culture Indicated? No Urine Glucose Negative 01/29/23 01/29/23 01/29/23 09:58 09:58 09:58 WBC 11.60 H RBC 3.38 L Hgb 10.8 L Hct 33.6 L MCV 99 H MCH 32.0 MCHC 32.1 RDW 13.5 Plt Count 183 MPV 9.6 Immature Gran % 0.7 Neutrophils % 59.4 Lymphocytes % 32.4 Monocytes % 4.7 Eosinophils % 2.2 Basophils % 0.6 Nucleated RBC % 0.0 Absolute Neutrophils 6.89 H Absolute Lymphocytes 3.76 H Absolute Monocytes 0.55 Absolute Eosinophils 0.26 Absolute Basophils 0.07 VBG Lactate 1.7 H Sodium 141 Potassium 4.1 Chloride 104 Carbon Dioxide 29.5 Anion Gap 7.5 BUN 19 H Creatinine 0.8 Est GFR (CKD-EPI 2020) 73.52 Glucose 142 H Calcium 8.5 Total Bilirubin 0.5 AST 18 ALT 40 Alkaline Phosphatase 41 L Total Protein 6.6 Albumin 2.9 L Procalcitonin Urine Color Urine Clarity Urine pH Ur Specific [place] Urine Protein Urine Ketones Urine Blood Urine Nitrite Urine Bilirubin Urine Urobilinogen Ur Leukocyte Esterase Urine RBC Urine WBC Ur Epithelial Cells Urine Crystals Urine Bacteria Urine Casts Urine Mucus Urine Other Ur Culture Indicated? Urine Glucose Pocus Exam Limited Thoracic Lung Exam DATE OF EXAM: 01/29/23 TIME OF EXAM: 14:50 PROVIDER THAT PERFORMED THE STUDY: Ghada Ochoa IS THIS A REPEAT EXAM DURING THIS ENCOUNTER: No REASON FOR EXAM: Pneumonia VISUALIZED STRUCTURES: right posterior and left posterior PERTINENT FINDINGS/IMPRESSION: Left pleural effusion; no pleural effusion on the right Exam complete
[2023-01-29] MEDS: Insulin Aspart 300 UNITS/3 ML PEN SC ×2 (11:53→17:18)
--- NOTE | 2023-01-29 14:11 | PHA.REVIEW2 ---
Pharmacy Admission Review Admission Clinical Review Admission Pharmacy Review: Constipation (Acute) Discharge planning issues (Acute) DVT prophylaxis (Acute) Shortness of breath (Acute) Pneumonia (Acute) ibuprofen Adverse Reaction (Mild, Unverified 01/23/23 17:32) Nausea Resuscitation Status Full Code Height 4 ft 11 in Weight 72.803 kg Pharmacy Admission Review Renal Dosing Renal Dosing: BUN 19 mg/dL (7-18) H 01/29/23 09:58 Creatinine 0.8 mg/dL (0.55-1.02) 01/29/23 09:58 Medications needing adjustments: Reviewed (eCrCl 50 ml/min) List of meds needing interventions: none Anticoagulation Anticoagulation: Hgb 10.8 g/dL (11.2-15.7) L 01/29/23 09:58 Hct 33.6 % (36.0-46.0) L 01/29/23 09:58 Plt Count 183 10^3/uL (130-400) 01/29/23 09:58 Creatinine 0.8 mg/dL (0.55-1.02) 01/29/23 09:58 DVT Prophylaxis: Reviewed Medications: Enoxaparin Opiate Usage Evaluate Pain Scale/Pains Meds: N/A Relevant Labs Electrolytes, C-Reactive P, ESR: Reviewed (all WNL) DM Control Insulin Dosing: Reviewed Insulin Dosing, Diabetic Medication: glargine 15u at HS plus aspart per SS (sensitive) Cardiac Review Cardiac Review: NT-Pro-B Natriuret Pep 265 pg/mL (<300) 01/23/23 17:11 EF%, YONATAN's, B-Blockers, Diuretics: Reviewed List meds needing interventions: lisinopril 2.5 mg (new - started on 01/27) QTc Review If Elevated: N/A IV to PO Switch IV Medications: Reviewed (extending abx course from 5 to 7 days -- continue IV abx thru 01/30) Home Meds Home Med List reviewed: Reviewed Current Meds Current Medication Order Review: Reviewed Pharmacy Antibiotic Review Relevant Labs: Relevant Labs 01/28/23 01/28/23 Unknown 17:15 Procalcitonin Cancelled 0.1 Pharmacy Antibiotic Activity: 48 hour review and Antibiotic de-escalation Comments: patient spiked a temp yesterday but no sign of other source so will extend abx course (zosyn + doxy) to 7 days total, failed FQ as outpt
--- NOTE | 2023-01-29 14:24 | W.PALLCONSUL ---
Date of service: 01/29/23 Time of Service: 14:24 History of Present Illness Narrative: Mrs. Almaraz is an 82-year-old woman who lives in [place] with her who was admitted on January 23 with pneumonia. She was also noted to have 3 stage II sacral wounds which are receiving attention from wound nurse. 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 Palliative care team has been asked to meet with her today to help flush out concerns with discharge planning, review goals of care, review limitations of treatment/CODE STATUS, and give extra level of support. Unfortunately, as she does not live in [facility], we will not be able to follow-up with home visits. She had November 2022 [facility] admission for UTI, was seen in the ED in December 2022 for an ear infection, then this admission for pneumonia Care Team: Primary Care physician: Bobby Styles [place] eligible (she is a ): Sp[facility] ([facility] [place]) Oncology: [facility] Urology: Dr. Briggs Pulmonary: [facility] (new) Social HX: Lives in [place] with her . House includes Kvng lift, hospital bed (AIR MATTRESS), wheelchair, ramps, shower chair. Family provides care with home health nursing support. 6 children who live locally. Does have an AIR mattress at home! Daughter Abeba helps on Fridays. Son stays Mondays nights. 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 -[facility] comes to change catheter once a month and as needed. -Meals on Wheels (2 days a week). -Has [facility] ([facility]?) Impression of currents health status: Stable until this admission. Wants to make sure she is all better before she goes home. What bothers you the most: Breathing. What worries you the most:Worried about going home, wonders if can take care of her. Function: Ambulation: Nonambulatory. In WC for part of afternoon (non motorized) ADLs: Total dependent, needs to be fed iADLs: Totaly dependent Hearing: OK Vision: Normal Palliative Performance Scale % Ambulation Activity and Evidence of Disease Self Care Intake Level of Consciousness 100 Full Normal activity, no evidence of disease Full Normal Full 90 Full Normal activity, some evidence of disease Full Normal Full 80 Full Normal activity with effort, some evidence of disease Full Normal or reduced Full 70 Reduced Unable to do normal work, some evidence of disease Full Normal or reduced Full 60 Reduced Unable to do hobby or some housework, significant disease Occasional assist necessary Normal or reduced Full or confusion 50 Mainly sit/lie Unable to do any work, extensive disease Considerable assistance required Normal or reduced Full or confusion 40 Mainly in bed Unable to do any work, extensive disease Mainly assistance Normal or reduced Full, drowsy, or confusion 30 Totally bed bound Unable to do any work, extensive disease Total care Reduced Full, drowsy, or confusion 20 Totally bed bound Unable to do any work, extensive disease Total care Minimal sips Full, drowsy, or confusion 10 Totally bed bound Unable to do any work, extensive disease Total care Mouth care only Drowsy or coma 0 - - - - Patient Score: 50 Spiritual history: Goes to Thursday mass weekly at [facility]. Father Rom Chan. Palliative review of systems: Pain:No Dyspnea:Yes, feels funny, not good . GI symptoms: Same regimen as at home, daily enema at home from [employer]ITY [employer], notes that staff not doing it here. Appetite: SOrt of down. Depression:None Anxiety: None Emotional Distress:NOne Spiritual/Existential Distress:NOne Labs: Cr: 0.8 Liver panel: Normal Albumin: 3.5-day of admission CBC: Hematocrit 33.6 (history of anemic when admitted, goes back to normal when not inpatient A1c: 6.2% day of admission Advanced Care Planning: Advanced Directive: Reportedly has Ad at home and on file with state (maybe) Health Care Agent: , alternate would be Luci Strickland. COLST: Full code Limitations: Assessment and Plan Assessment and plan (1) Palliative care encounter: Status: Acute (2) Quadriplegia: Status: Acute Assessment and plan: Patient and family have managed to give patient excellent care at home. Unfortunately this is her second hospital admission (November 2022 admission for UTI, current admission for pneumonia). Sounds like her home is well as set up. (3) Advanced care planning/counseling discussion: Status: Acute Assessment and plan: Patient has AD, which she says has verbage to allow comfort measures if she is terminal and no hope of recovery. -requesting that CM look in state database to see if on file. Pt and report that she received CPR at home at the time of her fall with cervical spine fracture. She reports that this was not a bad experience and had a good outcome, I am alive and I want to stay alive . We discussed the procedure of CPaR, actual mechanical process, rate of success in restoring heartbeat, short and long-term side effects in survivors (including likely decreased physical and cognitive functioning). Questions were answered. She reports that she would want a trial of CPR and intubation. Patient requesting minimizing blood draws and finger stick blood sugars. Hopefully this wish can be honored if her clinical condition stabilizes. 16 to 30 minutes spent today on Advance Care Planning. Patient and family participated voluntarily. Advance care planning may include (not limited to) explanation and discussion of advance directives, choosing and appointing healthcare agents, alternatives to various ACP tools, discussion of (and if indicated, completion of) COLST form, discussion of patient's values and overall goals for treatment, palliative and disease directive care options, ways to avoid hospital readmission including hospice discussions, care preferences should the patient's several other adverse health events.See today's palliative care note for additional information. (4) Discharge planning issues: Status: Acute Assessment and plan: Several of the children concerned that they need additional caretakers when she returns home. has bad R arm from traums. Worries that with newly recognized Sacral ulcers, she will need to be turned. And he will not be able to do that. She had sacral ulcers 2-3 years ago. Got an air bed. Cleared up when she was home with air bed. They WERE turning her every 2 hours. THey had nuclear equipment research engineer at that time. says these wounds likely due to two days a few weeks ago when she spent prolonged hours (8+ each time) in WC because of High School reunions and podiatry appt. Usually much less time in WC. Also, head control to change WC position is broken, [facility], still not here. Patient would prefer to go home. She is hoping that family can manage this by using pillows pushed under her to change position every few hours. Recommend: -If pt is here longer, provided Air Bed (it is unlikely that her own bed, provided to her from the [place] and she technically on sick, will be possible). This is likely to speed healing of her sacral ulcers and allow her to go home sooner. -Pt would like to either try going home or stay at [facility], someone said I could do that (If not an option, please clarify with family). . -If family unable to reposition at night and the wounds are not healing, then consider rehab stay ([facility] is [facility]). (5) Pressure ulcer: Status: Acute Assessment and plan: Patient and report that she last had pressure ulcer over 2 years ago soon after her initial accident. They suspect that cause of current ulcers were 2 days in the 2 weeks prior to admission when she spent prolonged time in her wheelchair. Wheelchair has a chin operated button which changes the angle of the back support. The motor to do this has been broken for a year. [facility]. She normally spends no more than 2 hours a day in the wheelchair. She also has an air bed at home. See recommendations under discharge planning issues. [facility] All Active Problems (Updated 01/29/23 @ 21:38 by Grace Loco MD) Pressure ulcer (Acute) Advanced care planning/counseling discussion (Acute) Quadriplegia (Acute) Palliative care encounter (Acute) Constipation (Acute) Discharge planning issues (Acute) DVT prophylaxis (Acute) Shortness of breath (Acute) Pneumonia (Acute) Acute UTI (Acute) Spinal stenosis, lumbar (Acute) Primary malignant neoplasm of breast (Acute) Neurogenic claudication (Acute) Hypothyroidism (Chronic) Hypertension (Chronic) Constipation due to neurogenic bowel (Acute) Benign neoplasm of colon (Acute) Autonomic dysreflexia (Acute) Arm edema (Acute) Nail dystrophy (Acute) UTI (urinary tract infection) (Acute) Transaminitis (Acute) Bladder spasm (Acute) COVID-19 ruled out (Acute) Neuropathic pain of finger of right hand (Acute) Fungal dermatitis (Acute) Chronic suprapubic catheter (Chronic) Hypomagnesemia (Acute) Acute UTI (Acute) Infiltrate of lung present on imaging of chest (Acute) UTI (urinary tract infection) (Acute) Hyperlipemia (Chronic) Intracranial aneurysm (Chronic) AAA (abdominal aortic aneurysm) (Chronic) Suprapubic catheter (Chronic) Diabetes mellitus (Chronic) Neurogenic bladder (Chronic) Paraplegia (Chronic) Medical History Cervical disc disorder CTS (carpal tunnel syndrome) left wrist ESBL (extended spectrum beta-lactamase) producing bacteria infection History of breast cancer Interstitial lung disease Pressure ulcer Surgical History H/O breast surgery H/O cervical spine surgery S/P cholecystectomy S/P rotator cuff repair S/P trigger finger release S/P tubal ligation Social History (Updated 01/23/23 @ 22:09 by Armen Parker) Smoking/Tobacco Use Status: Former Tobacco Use Quit Date: 08/17/06 Pack-years: 40 Smoking risk assessment performed?: Yes Alcohol Intake: never Drug use: Never Substance use type: does not use Current gender identity: female Do you feel safe at home: Yes Do you feel safe in your relationship?: Yes Additional Social history: lives with her in [place], [place]. Has home health. Exam Narrative Exam Narrative: Thin elderly female laying with head slightly elevated in bed. Intermittently pleasant, brief periods when she appears anxious. Her speech is fluid, she is alert and oriented. Able to move her head at the neck freely. Upper extremities forearms wrist and fingers are held in spastic positioning. She has some slight movement of her arms at her shoulders. The skin of her hands is thin and slightly red with multiple puncture wounds from fingerstick blood sugars. Pictures of sacral wounds are examined in chart. Results Last Vital Signs Temp 37.4 C 01/29/23 11:10 Pulse 79 01/29/23 11:10 Resp 20 01/29/23 11:10 BP 135/76 01/29/23 11:10 Pulse Ox 90 L 01/29/23 11:10 Labs 01/29/23 09:58 01/29/23 09:58 Labs: Laboratory Results - last 24 hr 01/28/23 01/29/23 01/29/23 17:15 09:58 09:58 WBC RBC Hgb Hct MCV MCH MCHC RDW Plt Count MPV Immature Gran % Neutrophils % Lymphocytes % Monocytes % Eosinophils % Basophils % Nucleated RBC % Absolute Neutrophils Absolute Lymphocytes Absolute Monocytes Absolute Eosinophils Absolute Basophils VBG Lactate 3.2 H* 1.7 H Sodium 141 Potassium 4.1 Chloride 104 Carbon Dioxide 29.5 Anion Gap 7.5 BUN 19 H Creatinine 0.8 Est GFR (CKD-EPI 2020) 73.52 Glucose 142 H Calcium 8.5 Total Bilirubin 0.5 AST 18 ALT 40 Alkaline Phosphatase 41 L Total Protein 6.6 Albumin 2.9 L Procalcitonin 0.1 01/29/23 09:58 WBC 11.60 H RBC 3.38 L Hgb 10.8 L Hct 33.6 L MCV 99 H MCH 32.0 MCHC 32.1 RDW 13.5 Plt Count 183 MPV 9.6 Immature Gran % 0.7 Neutrophils % 59.4 Lymphocytes % 32.4 Monocytes % 4.7 Eosinophils % 2.2 Basophils % 0.6 Nucleated RBC % 0.0 Absolute Neutrophils 6.89 H Absolute Lymphocytes 3.76 H Absolute Monocytes 0.55 Absolute Eosinophils 0.26 Absolute Basophils 0.07 VBG Lactate Sodium Potassium Chloride Carbon Dioxide Anion Gap BUN Creatinine Est GFR (CKD-EPI 2020) Glucose Calcium Total Bilirubin AST ALT Alkaline Phosphatase Total Protein Albumin Procalcitonin
[2023-01-29 15:44] VITALS: BP 174/72; PULSE 87; RESP 19; TEMP 37.7; O2SAT 93
--- NOTE | 2023-01-29 16:33 | CMPROGNOTE_ITS ---
Date of service: 01/29/23 Time of Service: 16:33 Care Management Progress Note Progress Note Text Progress Note Text: S/O: Gerardo remains inpatient, she reported to Dr. Loco that she plans on remaining at [facility] until her wounds are healed; anticipate new [facility] orders for wound care; RN/PT/OT/WAREHOUSE HANDLER, JOCELYN faxed updated clinicals to Elisha at [facility]. CM continues to follow. A:?82 year old female admitted to [facility] 01/23/23 with SOB P: Gerardo will be discharged home with a resumption of Home Health services with addition of wound care and WAREHOUSE HANDLER when medically cleared by provider.? She will follow up with her PCP and plan of care as instructed following discharge.? She will be transported home by ambulance coordinated by CM when ready.? CM will continue to support patient and discharge planning needs.
[2023-01-29 19:07] VITALS: BP 143/53; PULSE 80; RESP 25; TEMP 37.1; O2SAT 90
[2023-01-29] MEDS: Atorvastatin 10 MG TAB PO (20:13)
[2023-01-29] MEDS: Gabapentin 600 MG TAB PO (22:03)
[2023-01-29] MEDS: Enoxaparin 40 MG/0.4 ML SYR SC (22:03)
[2023-01-29] MEDS: Insulin Glargine 300 UNITS/3 ML PEN 15 UNITS SC (22:03)
[2023-01-30] VITALS (9 sets, daily range): BP systolic 122–182; BP diastolic 65–80; PULSE 65–75; RESP 7–22; TEMP 35.5–37; O2SAT 92–97
[2023-01-30] MEDS: Albuterol/Ipratropium 3 ML UPD VIAL UPD (01:05)
[2023-01-30] MEDS: PIPERACILLIN/TAZO 3.375 GM in Normal Saline 50 ML IVPB ×3 (03:02→13:26)
[2023-01-30] MEDS: DOXYCYCLINE 100 MG in Normal Saline 100 ML IVPB (05:39)
[2023-01-30] MEDS: Levothyroxine 75 MCG TAB PO (05:41)
--- NOTE | 2023-01-30 07:03 | PGE_ITS ---
Assessment and Plan Assessment and plan (1) Pleural thickening: Status: Acute (2) Pleural effusion: Status: Acute (3) Pneumonia: Status: Acute (4) Interstitial lung disease: (5) Quadriplegia: Status: Acute Assessment and plan: This is a 82 yo with left pleural thickening on CT and ILD who is admitted for pneumonia. Her infectious work up is grossly negative and I am unimpressed by the CT for pneumonia. It is reasonable to continue CAP coverage given the symptoms she is having. I worry that her pleural thickening represents malignancy such as mesothelioma given its nodular appearance. She does have talc exposure. Alternatively, this could be related to prior breast cancer treatment or possibly related to her ILD. Regardless I think she should have an outpatient PET/CT which I have ordered. I will reassess the pleural effusion as an outpatient in my clinic. Left pleural thickening - outpatient PET[place] [facility] [place] [facility] [place] I have ordered Left pleural effusion - I will reassess this as an outpatient Pneumonia - I do not feel strongly that she has a pneumonia, reasonable to continue doxy for a 5 day course ILD - will work up as an outpatient General Date Of Service Date of service: 01/30/23 Time of Service: 07:03 Reason for Consult: Non resolving Pneumonia Subjective Note Note: She is feeling better today than yesterday. She is still coughing and having trouble coughing up secretions due to a weak cough. She has been afebrile and have not needed supplemental O2. Exam Narrative Exam Narrative: Gen:?NAD, normal respiratory effort, well-nourished HENT:?PERRL, nasal turbinates normal without erythema or inflammation, moist oral? mucosa, Mallampati 2, No LAD or JVD Chest:?No respiratory distress, normal appearance of chest, coarse crackles bilaterally and intermittently Heart:?regular rate and rhythym, no murmurs, rubs or gallops Abdomen:?Non-distended, soft, non tender, right abdominal bruise (from Lovenox) with hard 2cm likely hematoma Extremities:?No clubbing, edema, cyanosis, rashes Neuro:?AAOx3 , non focal Psych:?cooperative, appropriate mental affect Objective Last Vital Signs Temp 35.5 C L 01/30/23 03:13 Pulse 72 01/30/23 03:13 Resp 20 01/30/23 03:13 BP 122/74 01/30/23 03:13 Pulse Ox 94 01/30/23 03:13 Laboratory Results - last 24 hr 01/29/23 01/29/23 01/29/23 09:58 09:58 09:58 WBC 11.60 H RBC 3.38 L Hgb 10.8 L Hct 33.6 L MCV 99 H MCH 32.0 MCHC 32.1 RDW 13.5 Plt Count 183 MPV 9.6 Immature Gran % 0.7 Neutrophils % 59.4 Lymphocytes % 32.4 Monocytes % 4.7 Eosinophils % 2.2 Basophils % 0.6 Nucleated RBC % 0.0 Absolute Neutrophils 6.89 H Absolute Lymphocytes 3.76 H Absolute Monocytes 0.55 Absolute Eosinophils 0.26 Absolute Basophils 0.07 VBG Lactate 1.7 H Sodium 141 Potassium 4.1 Chloride 104 Carbon Dioxide 29.5 Anion Gap 7.5 BUN 19 H Creatinine 0.8 Est GFR (CKD-EPI 2020) 73.52 Glucose 142 H Calcium 8.5 Total Bilirubin 0.5 AST 18 ALT 40 Alkaline Phosphatase 41 L Total Protein 6.6 Albumin 2.9 L Results Medications Medications: Active Medications Generic Name Dose Route Start Last Admin Trade Name Freq PRN Reason Stop Dose Admin Acetaminophen 325 - 650 mg 01/23/23 21:10 01/28/23 22:48 Acetaminophen 325 Mg Tab PO 650 mg Q4H PRN PRN Administration Albuterol/Ipratropium 3 ml 01/25/23 14:38 01/30/23 01:05 Albuterol/Ipratropium 3 Ml Upd Vial UPD 3 ml Q4H PRN PRN Administration Wheezing, Shortness of Breath Aspirin 81 mg 01/24/23 08:30 01/29/23 09:24 Aspirin E.C. 81 Mg Tabec PO 81 mg DAILY CHIP Administration Atorvastatin Calcium 10 mg 01/23/23 22:00 01/29/23 20:13 Atorvastatin 10 Mg Tab PO 10 mg QPM CHIP Administration Baclofen 20 mg 01/24/23 08:30 01/29/23 20:13 Baclofen 10 Mg Tab PO 20 mg TID CHIP Administration Bisacodyl 10 mg 01/26/23 13:37 01/28/23 23:45 Bisacodyl 10 Mg Supp IL 10 mg DAILY PRN PRN Administration Calcium Carbonate 1.25 gm 01/24/23 08:30 01/29/23 20:13 Calcium Carbonate 1.25 Gm Tab PO 1.25 gm BID CHIP Administration Cholecalciferol 400 unit 01/24/23 08:30 01/29/23 20:13 Cholecalciferol (Vitamin D3) 400 Unit Tab PO 400 unit BID CHIP Administration Cyanocobalamin 1,000 mcg 01/24/23 08:30 01/29/23 09:24 Cyanocobalamin 500 Mcg Tab PO 1,000 mcg DAILY CHIP Administration Dextrose 0 gm 01/23/23 21:18 Glucose Oral Gel 15 Gm/37.5 Gm Tube PO DIRECTED PRN Dextrose/Water 0 gm 01/23/23 21:18 Dextrose 50%-Water 25 Gm/50 Ml Syr IVP DIRECTED PRN Dimethicone/Zinc Oxide 0 gm 01/23/23 21:10 Jim Protect Cream 142 Gm Tube TP PRN PRN Docusate Sodium 100 mg 01/26/23 20:00 01/29/23 20:13 Docusate Sodium 100 Mg Cap PO 100 mg BID CHIP Administration Enoxaparin Sodium 40 mg 01/23/23 22:00 01/29/23 22:03 Enoxaparin 40 Mg/0.4 Ml Syr SC 40 mg Q24H CHIP Administration Gabapentin 600 mg 01/23/23 22:00 01/29/23 22:03 Gabapentin 600 Mg Tab PO 600 mg HS CHIP Administration Gabapentin 400 mg 01/24/23 12:00 01/29/23 11:01 Gabapentin 400 Mg Cap PO 400 mg 0800,1200 CIHP Administration Guaifenesin 600 mg 01/29/23 10:55 01/29/23 20:14 Guaifenesin 600 Mg Tabcr PO 600 mg BID CHIP Administration Doxycycline Hyclate 100 mg/ 100 mls @ 100 mls/hr 01/24/23 06:00 01/30/23 05:39 Sodium Chloride IVPB 100 mls/hr Q12H CHIP Administration Piperacillin Sod/Tazobactam 50 mls @ 100 mls/hr 01/24/23 08:00 01/30/23 03:35 Sod 3.375 gm/ Sodium Chloride IVPB Infused Q6H CHIP Infusion Sodium Chloride 500 mls @ 0 mls/hr 01/24/23 09:20 01/26/23 14:28 Saline 500ml Bag IV 30 mls/hr PRN PRN Administration As Directed IV Miscellaneous Supplies 1 each 01/25/23 12:45 Iv Access IV DIRECTED [facility] Insulin Aspart 0 - 9 units 01/24/23 08:00 01/29/23 17:18 Insulin Aspart 300 Units/3 Ml Pen SC 2 units 0800,1200,1700 [facility] Administration Protocol Insulin Glargine 15 units 01/24/23 22:00 01/29/23 22:03 Insulin Glargine 300 Units/3 Ml Pen SC 15 unit HS [facility] Administration Levothyroxine Sodium 75 mcg 01/24/23 06:00 01/30/23 05:41 Levothyroxine 75 Mcg Tab PO 75 mcg 0600 [facility] Administration Lisinopril 2.5 mg 01/27/23 08:30 01/29/23 09:25 Lisinopril 2.5 Mg Tab PO 2.5 mg DAILY [facility] Administration Magnesium Oxide 400 mg 01/26/23 08:30 01/29/23 20:14 Magnesium Oxide 400 Mg Tab PO 400 mg TID CHIP Administration Metformin HCl 1,000 mg 01/24/23 08:00 01/24/23 08:47 Metformin 500 Mg Tab PO 1,000 mg 0800,1630 [facility] Administration Mirabegron 25 mg 01/24/23 08:30 01/29/23 09:25 Mirabegron 25 Mg Tabcr PO 25 mg DAILY [facility] Administration Multivitamins 1 tab 01/24/23 08:30 01/29/23 09:24 Multivitamin Tab PO 1 tab DAILY [facility] Administration Omeprazole 20 mg 01/24/23 07:30 01/29/23 09:24 Omeprazole 20 Mg Capcr PO 20 mg DAILY@0730 [facility] Administration Ondansetron HCl 4 mg 01/23/23 21:15 Ondansetron O.D.T. 4 Mg Tabef PO Q8H PRN PRN Polyethylene Glycol 17 gm 01/26/23 13:37 01/28/23 23:45 Polyethylene Glycol 3350 17 Gm Packet PO 17 gm DAILY PRN PRN Administration Prednisone 40 mg 01/25/23 08:30 01/29/23 09:24 Prednisone 20 Mg Tab PO 40 mg DAILY [facility] Administration Sennosides 1 tab 01/26/23 20:00 01/29/23 20:13 Senna Tab PO 1 tab BID [facility] Administration Sodium Biphosphate/Sodium Phosphate 133 ml 01/30/23 09:00 Na Phosphate Enema 133 Ml Btl IL SUMOTUWETHFR@0900 CHIP Sodium Chloride 0 ml 01/25/23 12:34 01/29/23 16:30 Normal Saline Flush 10 Ml Syr IVP 30 ml PRN PRN Administration Allergies ibuprofen Adverse Reaction (Mild, Unverified 01/23/23 17:32) Nausea Labs 01/29/23 09:58 01/29/23 09:58 Labs: 01/28/23 17:15 Blood Blood Culture - Preliminary NO GROWTH 24 HOURS 01/29/23 09:58 Blood Blood Culture - Pending 01/27/23 14:00 Urine - Subrapubic Urine Culture - Final [place] Alb[place] 01/23/23 17:50 Blood Blood Culture - Final NO GROWTH 120 HOURS 01/23/23 17:11 Blood Blood Culture - Final NO GROWTH 120 HOURS 01/24/23 11:55 Nose MRSA Screen - Final Laboratory Tests Range/Units 01/23/23 01/23/23 01/23/23 17:11 17:11 17:11 WBC (4.4-10.8) 10^3/uL 9.54 RBC (3.93-5.22) 10^6/uL 3.48 L Hgb (11.2-15.7) g/dL 11.3 Hct (36.0-46.0) % 34.3 L MCV (80-95) fL 99 H MCH (27.0-33.0) pg 32.5 MCHC (32.0-36.0) % 32.9 RDW (11.7-14.6) % 13.2 Plt Count (130-400) 10^3/uL 183 MPV (8.0-11.0) fL 10.3 Immature Gran % 1.0 Neutrophils % 46.9 Lymphocytes % 44.4 Monocytes % 5.5 Eosinophils % 1.7 Basophils % 0.5 Nucleated RBC % (0.0-0.3) % 0.0 Absolute Neutrophils (1.2-6.7) 10^3/uL 4.47 Absolute Lymphocytes (1.2-3.4) 10^3/uL 4.24 H Absolute Monocytes (0.1-0.8) 10^3/uL 0.52 Absolute Eosinophils (0.0-0.7) 10^3/uL 0.16 Absolute Basophils (0.0-0.2) 10^3/uL 0.05 RBC Morphology VBG Lactate (0.6-1.4) mmol/L Sodium (136-145) mmol/L 130 L Potassium (3.5-5.1) mmol/L 4.9 Chloride (98-107) mmol/L 96 L Carbon Dioxide (21.0-32.0) mmol/L 26.3 Anion Gap (3-11) mmol/L 7.7 BUN (7-18) mg/dL 16 Creatinine (0.55-1.02) mg/dL 0.8 Est GFR (CKD-EPI 2020) (mL/min/1.73m2) 73.52 Glucose (74-106) mg/dL 109 H Hemoglobin A1c (<5.7) % Calcium (8.5-10.1) mg/dL 9.2 Magnesium (1.8-2.4) mg/dL 1.9 Total Bilirubin (0.2-1.0) mg/dL 0.4 AST (15-37) U/L 27 ALT (14-59) U/L 41 Alkaline Phosphatase (46-116) U/L 61 NT-Pro-B Natriuret Pep (<300) pg/mL 265 Total Protein (6.4-8.2) g/dL 7.3 Albumin (3.4-5.0) g/dL 3.5 Procalcitonin ng/mL Urine Color (Yellow) Urine Clarity (Clear) Urine pH (5-8) Ur Specific Brule (1.005-1.025) Urine Protein (Negative) mg/dL Urine Ketones (Negative) mg/dL Urine Blood (Negative) Urine Nitrite (Negative) Urine Bilirubin (Negative) Urine Urobilinogen (Up to 0.2) mg/dL Ur Leukocyte Esterase (Negative) Urine RBC (0-2) HPF Urine WBC (0-5) HPF Ur Epithelial Cells (Negative) HPF Urine Crystals (Negative) HPF Urine Bacteria (Negative) HPF Urine Casts (Negative) LPF Urine Mucus (Negative) Urine Other (Negative) Ur Culture Indicated? Urine Glucose (Negative) mg/dL COVID-19 Source SARS-CoV-2 (PCR) (Negative) Influenza Type A (PCR) (Negative) Influenza Type B (PCR) (Negative) Urine Legionella Ag (Negative) M. pneumoniae Source M. pneumoniae (PCR) RSV (PCR) (Negative) Ur Strep pneumoniae Ag (Negative) Add-On Test Request Range/Units 01/23/23 01/23/23 01/24/23 17:13 17:50 06:30 WBC (4.4-10.8) 10^3/uL RBC (3.93-5.22) 10^6/uL Hgb (11.2-15.7) g/dL Hct (36.0-46.0) % MCV (80-95) fL MCH (27.0-33.0) pg MCHC (32.0-36.0) % RDW (11.7-14.6) % Plt Count (130-400) 10^3/uL MPV (8.0-11.0) fL Immature Gran % Neutrophils % Lymphocytes % Monocytes % Eosinophils % Basophils % Nucleated RBC % (0.0-0.3) % Absolute Neutrophils (1.2-6.7) 10^3/uL Absolute Lymphocytes (1.2-3.4) 10^3/uL Absolute Monocytes (0.1-0.8) 10^3/uL Absolute Eosinophils (0.0-0.7) 10^3/uL Absolute Basophils (0.0-0.2) 10^3/uL RBC Morphology VBG Lactate (0.6-1.4) mmol/L 2.3 H* Sodium (136-145) mmol/L 131 L Potassium (3.5-5.1) mmol/L 5.0 Chloride (98-107) mmol/L 97 L Carbon Dioxide (21.0-32.0) mmol/L 25.3 Anion Gap (3-11) mmol/L 8.7 BUN (7-18) mg/dL 17 Creatinine (0.55-1.02) mg/dL 1.0 Est GFR (CKD-EPI 2020) (mL/min/1.73m2) 56.25 Glucose (74-106) mg/dL 268 H Hemoglobin A1c (<5.7) % Calcium (8.5-10.1) mg/dL 9.0 Magnesium (1.8-2.4) mg/dL Total Bilirubin (0.2-1.0) mg/dL AST (15-37) U/L ALT (14-59) U/L Alkaline Phosphatase (46-116) U/L NT-Pro-B Natriuret Pep (<300) pg/mL Total Protein (6.4-8.2) g/dL Albumin (3.4-5.0) g/dL Procalcitonin ng/mL Urine Color (Yellow) Urine Clarity (Clear) Urine pH (5-8) Ur Specific Brule (1.005-1.025) Urine Protein (Negative) mg/dL Urine Ketones (Negative) mg/dL Urine Blood (Negative) Urine Nitrite (Negative) Urine Bilirubin (Negative) Urine Urobilinogen (Up to 0.2) mg/dL Ur Leukocyte Esterase (Negative) Urine RBC (0-2) HPF Urine WBC (0-5) HPF Ur Epithelial Cells (Negative) HPF Urine Crystals (Negative) HPF Urine Bacteria (Negative) HPF Urine Casts (Negative) LPF Urine Mucus (Negative) Urine Other (Negative) Ur Culture Indicated? Urine Glucose (Negative) mg/dL COVID-19 Source Nasopharynx SARS-CoV-2 (PCR) (Negative) Negative Influenza Type A (PCR) (Negative) Negative Influenza Type B (PCR) (Negative) Negative Urine Legionella Ag (Negative) M. pneumoniae Source M. pneumoniae (PCR) RSV (PCR) (Negative) Negative Ur Strep pneumoniae Ag (Negative) Add-On Test Request Range/Units 01/24/23 01/24/23 01/24/23 06:30 06:30 06:30 WBC (4.4-10.8) 10^3/uL RBC (3.93-5.22) 10^6/uL Hgb (11.2-15.7) g/dL Hct (36.0-46.0) % MCV (80-95) fL MCH (27.0-33.0) pg MCHC (32.0-36.0) % RDW (11.7-14.6) % Plt Count (130-400) 10^3/uL MPV (8.0-11.0) fL Immature Gran % Neutrophils % Lymphocytes % Monocytes % Eosinophils % Basophils % Nucleated RBC % (0.0-0.3) % Absolute Neutrophils (1.2-6.7) 10^3/uL Absolute Lymphocytes (1.2-3.4) 10^3/uL Absolute Monocytes (0.1-0.8) 10^3/uL Absolute Eosinophils (0.0-0.7) 10^3/uL Absolute Basophils (0.0-0.2) 10^3/uL RBC Morphology VBG Lactate (0.6-1.4) mmol/L 3.3 H* Sodium (136-145) mmol/L Potassium (3.5-5.1) mmol/L Chloride (98-107) mmol/L Carbon Dioxide (21.0-32.0) mmol/L Anion Gap (3-11) mmol/L BUN (7-18) mg/dL Creatinine (0.55-1.02) mg/dL Est GFR (CKD-EPI 2020) (mL/min/1.73m2) Glucose (74-106) mg/dL Hemoglobin A1c (<5.7) % 6.2 H Calcium (8.5-10.1) mg/dL Magnesium (1.8-2.4) mg/dL Total Bilirubin (0.2-1.0) mg/dL AST (15-37) U/L ALT (14-59) U/L Alkaline Phosphatase (46-116) U/L NT-Pro-B Natriuret Pep (<300) pg/mL Total Protein (6.4-8.2) g/dL Albumin (3.4-5.0) g/dL Procalcitonin ng/mL Urine Color (Yellow) Urine Clarity (Clear) Urine pH (5-8) Ur Specific Brule (1.005-1.025) Urine Protein (Negative) mg/dL Urine Ketones (Negative) mg/dL Urine Blood (Negative) Urine Nitrite (Negative) Urine Bilirubin (Negative) Urine Urobilinogen (Up to 0.2) mg/dL Ur Leukocyte Esterase (Negative) Urine RBC (0-2) HPF Urine WBC (0-5) HPF Ur Epithelial Cells (Negative) HPF Urine Crystals (Negative) HPF Urine Bacteria (Negative) HPF Urine Casts (Negative) LPF Urine Mucus (Negative) Urine Other (Negative) Ur Culture Indicated? Urine Glucose (Negative) mg/dL COVID-19 Source SARS-CoV-2 (PCR) (Negative) Influenza Type A (PCR) (Negative) Influenza Type B (PCR) (Negative) Urine Legionella Ag (Negative) M. pneumoniae Source M. pneumoniae (PCR) RSV (PCR) (Negative) Ur Strep pneumoniae Ag (Negative) Add-On Test Request DONE Range/Units 01/24/23 01/24/23 01/24/23 06:30 11:55 14:40 WBC (4.4-10.8) 10^3/uL RBC (3.93-5.22) 10^6/uL Hgb (11.2-15.7) g/dL Hct (36.0-46.0) % MCV (80-95) fL MCH (27.0-33.0) pg MCHC (32.0-36.0) % RDW (11.7-14.6) % Plt Count (130-400) 10^3/uL MPV (8.0-11.0) fL Immature Gran % Neutrophils % Lymphocytes % Monocytes % Eosinophils % Basophils % Nucleated RBC % (0.0-0.3) % Absolute Neutrophils (1.2-6.7) 10^3/uL Absolute Lymphocytes (1.2-3.4) 10^3/uL Absolute Monocytes (0.1-0.8) 10^3/uL Absolute Eosinophils (0.0-0.7) 10^3/uL Absolute Basophils (0.0-0.2) 10^3/uL RBC Morphology VBG Lactate (0.6-1.4) mmol/L Sodium (136-145) mmol/L Potassium (3.5-5.1) mmol/L Chloride (98-107) mmol/L Carbon Dioxide (21.0-32.0) mmol/L Anion Gap (3-11) mmol/L BUN (7-18) mg/dL Creatinine (0.55-1.02) mg/dL Est GFR (CKD-EPI 2020) (mL/min/1.73m2) Glucose (74-106) mg/dL Hemoglobin A1c (<5.7) % Calcium (8.5-10.1) mg/dL Magnesium (1.8-2.4) mg/dL Total Bilirubin (0.2-1.0) mg/dL AST (15-37) U/L ALT (14-59) U/L Alkaline Phosphatase (46-116) U/L NT-Pro-B Natriuret Pep (<300) pg/mL Total Protein (6.4-8.2) g/dL Albumin (3.4-5.0) g/dL Procalcitonin ng/mL < 0.1 Urine Color (Yellow) Urine Clarity (Clear) Urine pH (5-8) Ur Specific Brule (1.005-1.025) Urine Protein (Negative) mg/dL Urine Ketones (Negative) mg/dL Urine Blood (Negative) Urine Nitrite (Negative) Urine Bilirubin (Negative) Urine Urobilinogen (Up to 0.2) mg/dL Ur Leukocyte Esterase (Negative) Urine RBC (0-2) HPF Urine WBC (0-5) HPF Ur Epithelial Cells (Negative) HPF Urine Crystals (Negative) HPF Urine Bacteria (Negative) HPF Urine Casts (Negative) LPF Urine Mucus (Negative) Urine Other (Negative) Ur Culture Indicated? Urine Glucose (Negative) mg/dL COVID-19 Source SARS-CoV-2 (PCR) (Negative) Influenza Type A (PCR) (Negative) Influenza Type B (PCR) (Negative) Urine Legionella Ag (Negative) Negative M. pneumoniae Source M. pneumoniae (PCR) RSV (PCR) (Negative) Ur Strep pneumoniae Ag (Negative) Negative Add-On Test Request Range/Units 01/24/23 01/24/23 01/25/23 17:57 20:57 00:35 WBC (4.4-10.8) 10^3/uL RBC (3.93-5.22) 10^6/uL Hgb (11.2-15.7) g/dL Hct (36.0-46.0) % MCV (80-95) fL MCH (27.0-33.0) pg MCHC (32.0-36.0) % RDW (11.7-14.6) % Plt Count (130-400) 10^3/uL MPV (8.0-11.0) fL Immature Gran % Neutrophils % Lymphocytes % Monocytes % Eosinophils % Basophils % Nucleated RBC % (0.0-0.3) % Absolute Neutrophils (1.2-6.7) 10^3/uL Absolute Lymphocytes (1.2-3.4) 10^3/uL Absolute Monocytes (0.1-0.8) 10^3/uL Absolute Eosinophils (0.0-0.7) 10^3/uL Absolute Basophils (0.0-0.2) 10^3/uL RBC Morphology VBG Lactate (0.6-1.4) mmol/L 5.5 H* 3.5 H* 2.5 H* Sodium (136-145) mmol/L Potassium (3.5-5.1) mmol/L Chloride (98-107) mmol/L Carbon Dioxide (21.0-32.0) mmol/L Anion Gap (3-11) mmol/L BUN (7-18) mg/dL Creatinine (0.55-1.02) mg/dL Est GFR (CKD-EPI 2020) (mL/min/1.73m2) Glucose (74-106) mg/dL Hemoglobin A1c (<5.7) % Calcium (8.5-10.1) mg/dL Magnesium (1.8-2.4) mg/dL Total Bilirubin (0.2-1.0) mg/dL AST (15-37) U/L ALT (14-59) U/L Alkaline Phosphatase (46-116) U/L NT-Pro-B Natriuret Pep (<300) pg/mL Total Protein (6.4-8.2) g/dL Albumin (3.4-5.0) g/dL Procalcitonin ng/mL Urine Color (Yellow) Urine Clarity (Clear) Urine pH (5-8) Ur Specific Brule (1.005-1.025) Urine Protein (Negative) mg/dL Urine Ketones (Negative) mg/dL Urine Blood (Negative) Urine Nitrite (Negative) Urine Bilirubin (Negative) Urine Urobilinogen (Up to 0.2) mg/dL Ur Leukocyte Esterase (Negative) Urine RBC (0-2) HPF Urine WBC (0-5) HPF Ur Epithelial Cells (Negative) HPF Urine Crystals (Negative) HPF Urine Bacteria (Negative) HPF Urine Casts (Negative) LPF Urine Mucus (Negative) Urine Other (Negative) Ur Culture Indicated? Urine Glucose (Negative) mg/dL COVID-19 Source SARS-CoV-2 (PCR) (Negative) Influenza Type A (PCR) (Negative) Influenza Type B (PCR) (Negative) Urine Legionella Ag (Negative) M. pneumoniae Source M. pneumoniae (PCR) RSV (PCR) (Negative) Ur Strep pneumoniae Ag (Negative) Add-On Test Request Range/Units 01/25/23 01/25/23 01/25/23 06:00 07:00 07:00 WBC (4.4-10.8) 10^3/uL 8.67 RBC (3.93-5.22) 10^6/uL 3.42 L Hgb (11.2-15.7) g/dL 10.8 L Hct (36.0-46.0) % 33.4 L MCV (80-95) fL 98 H MCH (27.0-33.0) pg 31.6 MCHC (32.0-36.0) % 32.3 RDW (11.7-14.6) % 13.4 Plt Count (130-400) 10^3/uL 191 MPV (8.0-11.0) fL 9.6 Immature Gran % 2.0 Neutrophils % 52.4 Lymphocytes % 37.6 Monocytes % 6.8 Eosinophils % 0.7 Basophils % 0.5 Nucleated RBC % (0.0-0.3) % 0.0 Absolute Neutrophils (1.2-6.7) 10^3/uL 4.55 Absolute Lymphocytes (1.2-3.4) 10^3/uL 3.26 Absolute Monocytes (0.1-0.8) 10^3/uL 0.59 Absolute Eosinophils (0.0-0.7) 10^3/uL 0.06 Absolute Basophils (0.0-0.2) 10^3/uL 0.04 RBC Morphology VBG Lactate (0.6-1.4) mmol/L Sodium (136-145) mmol/L 134 L Potassium (3.5-5.1) mmol/L 4.4 Chloride (98-107) mmol/L 100 Carbon Dioxide (21.0-32.0) mmol/L 25.9 Anion Gap (3-11) mmol/L 8.1 BUN (7-18) mg/dL 21 H Creatinine (0.55-1.02) mg/dL 0.8 Est GFR (CKD-EPI 2020) (mL/min/1.73m2) 73.52 Glucose (74-106) mg/dL 112 H Hemoglobin A1c (<5.7) % Calcium (8.5-10.1) mg/dL 9.0 Magnesium (1.8-2.4) mg/dL 1.8 Total Bilirubin (0.2-1.0) mg/dL AST (15-37) U/L ALT (14-59) U/L Alkaline Phosphatase (46-116) U/L NT-Pro-B Natriuret Pep (<300) pg/mL Total Protein (6.4-8.2) g/dL Albumin (3.4-5.0) g/dL Procalcitonin ng/mL Urine Color (Yellow) Urine Clarity (Clear) Urine pH (5-8) Ur Specific Brule (1.005-1.025) Urine Protein (Negative) mg/dL Urine Ketones (Negative) mg/dL Urine Blood (Negative) Urine Nitrite (Negative) Urine Bilirubin (Negative) Urine Urobilinogen (Up to 0.2) mg/dL Ur Leukocyte Esterase (Negative) Urine RBC (0-2) HPF Urine WBC (0-5) HPF Ur Epithelial Cells (Negative) HPF Urine Crystals (Negative) HPF Urine Bacteria (Negative) HPF Urine Casts (Negative) LPF Urine Mucus (Negative) Urine Other (Negative) Ur Culture Indicated? Urine Glucose (Negative) mg/dL COVID-19 Source SARS-CoV-2 (PCR) (Negative) Influenza Type A (PCR) (Negative) Influenza Type B (PCR) (Negative) Urine Legionella Ag (Negative) M. pneumoniae Source Not Applicable M. pneumoniae (PCR) Negative RSV (PCR) (Negative) Ur Strep pneumoniae Ag (Negative) Add-On Test Request Range/Units 01/25/23 01/26/23 01/26/23 07:00 06:30 06:30 WBC (4.4-10.8) 10^3/uL 8.75 RBC (3.93-5.22) 10^6/uL 3.37 L Hgb (11.2-15.7) g/dL 10.9 L Hct (36.0-46.0) % 32.8 L MCV (80-95) fL 97 H MCH (27.0-33.0) pg 32.3 MCHC (32.0-36.0) % 33.2 RDW (11.7-14.6) % 13.7 Plt Count (130-400) 10^3/uL 201 MPV (8.0-11.0) fL 10.0 Immature Gran % 1.6 Neutrophils % 43.0 Lymphocytes % 47.8 Monocytes % 6.1 Eosinophils % 0.9 Basophils % 0.6 Nucleated RBC % (0.0-0.3) % 0.0 Absolute Neutrophils (1.2-6.7) 10^3/uL 3.77 Absolute Lymphocytes (1.2-3.4) 10^3/uL 4.18 H Absolute Monocytes (0.1-0.8) 10^3/uL 0.53 Absolute Eosinophils (0.0-0.7) 10^3/uL 0.08 Absolute Basophils (0.0-0.2) 10^3/uL 0.05 RBC Morphology VBG Lactate (0.6-1.4) mmol/L 2.4 H* Sodium (136-145) mmol/L 139 Potassium (3.5-5.1) mmol/L 4.4 Chloride (98-107) mmol/L 103 Carbon Dioxide (21.0-32.0) mmol/L 28.8 Anion Gap (3-11) mmol/L 7.2 BUN (7-18) mg/dL 22 H Creatinine (0.55-1.02) mg/dL 0.9 Est GFR (CKD-EPI 2020) (mL/min/1.73m2) 63.83 Glucose (74-106) mg/dL 88 Hemoglobin A1c (<5.7) % Calcium (8.5-10.1) mg/dL 9.1 Magnesium (1.8-2.4) mg/dL 1.6 L Total Bilirubin (0.2-1.0) mg/dL AST (15-37) U/L ALT (14-59) U/L Alkaline Phosphatase (46-116) U/L NT-Pro-B Natriuret Pep (<300) pg/mL Total Protein (6.4-8.2) g/dL Albumin (3.4-5.0) g/dL Procalcitonin ng/mL Urine Color (Yellow) Urine Clarity (Clear) Urine pH (5-8) Ur Specific Brule (1.005-1.025) Urine Protein (Negative) mg/dL Urine Ketones (Negative) mg/dL Urine Blood (Negative) Urine Nitrite (Negative) Urine Bilirubin (Negative) Urine Urobilinogen (Up to 0.2) mg/dL Ur Leukocyte Esterase (Negative) Urine RBC (0-2) HPF Urine WBC (0-5) HPF Ur Epithelial Cells (Negative) HPF Urine Crystals (Negative) HPF Urine Bacteria (Negative) HPF Urine Casts (Negative) LPF Urine Mucus (Negative) Urine Other (Negative) Ur Culture Indicated? Urine Glucose (Negative) mg/dL COVID-19 Source SARS-CoV-2 (PCR) (Negative) Influenza Type A (PCR) (Negative) Influenza Type B (PCR) (Negative) Urine Legionella Ag (Negative) M. pneumoniae Source M. pneumoniae (PCR) RSV (PCR) (Negative) Ur Strep pneumoniae Ag (Negative) Add-On Test Request Range/Units 01/27/23 01/27/23 01/27/23 06:30 17:28 17:28 WBC (4.4-10.8) 10^3/uL 10.28 RBC (3.93-5.22) 10^6/uL 3.43 L Hgb (11.2-15.7) g/dL 11.0 L Hct (36.0-46.0) % 33.0 L MCV (80-95) fL 96 H MCH (27.0-33.0) pg 32.1 MCHC (32.0-36.0) % 33.3 RDW (11.7-14.6) % 13.7 Plt Count (130-400) 10^3/uL 203 MPV (8.0-11.0) fL 9.3 Immature Gran % 1.6 Neutrophils % 76.7 Lymphocytes % 18.4 Monocytes % 2.9 Eosinophils % 0.1 Basophils % 0.3 Nucleated RBC % (0.0-0.3) % 0.0 Absolute Neutrophils (1.2-6.7) 10^3/uL 7.89 H Absolute Lymphocytes (1.2-3.4) 10^3/uL 1.89 Absolute Monocytes (0.1-0.8) 10^3/uL 0.30 Absolute Eosinophils (0.0-0.7) 10^3/uL 0.01 Absolute Basophils (0.0-0.2) 10^3/uL 0.03 RBC Morphology VBG Lactate (0.6-1.4) mmol/L 2.1 H Sodium (136-145) mmol/L 138 Potassium (3.5-5.1) mmol/L 4.5 Chloride (98-107) mmol/L 103 Carbon Dioxide (21.0-32.0) mmol/L 28.5 Anion Gap (3-11) mmol/L 6.5 BUN (7-18) mg/dL 24 H Creatinine (0.55-1.02) mg/dL 0.8 Est GFR (CKD-EPI 2020) (mL/min/1.73m2) 73.52 Glucose (74-106) mg/dL 89 Hemoglobin A1c (<5.7) % Calcium (8.5-10.1) mg/dL 8.8 Magnesium (1.8-2.4) mg/dL 1.9 Total Bilirubin (0.2-1.0) mg/dL AST (15-37) U/L ALT (14-59) U/L Alkaline Phosphatase (46-116) U/L NT-Pro-B Natriuret Pep (<300) pg/mL Total Protein (6.4-8.2) g/dL Albumin (3.4-5.0) g/dL Procalcitonin ng/mL Urine Color (Yellow) Urine Clarity (Clear) Urine pH (5-8) Ur Specific Brule (1.005-1.025) Urine Protein (Negative) mg/dL Urine Ketones (Negative) mg/dL Urine Blood (Negative) Urine Nitrite (Negative) Urine Bilirubin (Negative) Urine Urobilinogen (Up to 0.2) mg/dL Ur Leukocyte Esterase (Negative) Urine RBC (0-2) HPF Urine WBC (0-5) HPF Ur Epithelial Cells (Negative) HPF Urine Crystals (Negative) HPF Urine Bacteria (Negative) HPF Urine Casts (Negative) LPF Urine Mucus (Negative) Urine Other (Negative) Ur Culture Indicated? Urine Glucose (Negative) mg/dL COVID-19 Source SARS-CoV-2 (PCR) (Negative) Influenza Type A (PCR) (Negative) Influenza Type B (PCR) (Negative) Urine Legionella Ag (Negative) M. pneumoniae Source M. pneumoniae (PCR) RSV (PCR) (Negative) Ur Strep pneumoniae Ag (Negative) Add-On Test Request Range/Units 01/28/23 01/28/23 01/28/23 06:16 06:16 13:52 WBC (4.4-10.8) 10^3/uL 11.89 H RBC (3.93-5.22) 10^6/uL 3.54 L Hgb (11.2-15.7) g/dL 11.3 Hct (36.0-46.0) % 35.0 L MCV (80-95) fL 99 H MCH (27.0-33.0) pg 31.9 MCHC (32.0-36.0) % 32.3 RDW (11.7-14.6) % 13.8 Plt Count (130-400) 10^3/uL 188 MPV (8.0-11.0) fL 9.5 Immature Gran % 1.2 Neutrophils % 42.8 Lymphocytes % 48.9 Monocytes % 5.2 Eosinophils % 1.2 Basophils % 0.7 Nucleated RBC % (0.0-0.3) % 0.0 Absolute Neutrophils (1.2-6.7) 10^3/uL 5.09 Absolute Lymphocytes (1.2-3.4) 10^3/uL 5.81 H Absolute Monocytes (0.1-0.8) 10^3/uL 0.62 Absolute Eosinophils (0.0-0.7) 10^3/uL 0.14 Absolute Basophils (0.0-0.2) 10^3/uL 0.08 RBC Morphology Normal VBG Lactate (0.6-1.4) mmol/L Sodium (136-145) mmol/L 136 Potassium (3.5-5.1) mmol/L 4.2 Chloride (98-107) mmol/L 101 Carbon Dioxide (21.0-32.0) mmol/L 27.3 Anion Gap (3-11) mmol/L 7.7 BUN (7-18) mg/dL 26 H Creatinine (0.55-1.02) mg/dL 0.9 Est GFR (CKD-EPI 2020) (mL/min/1.73m2) 63.83 Glucose (74-106) mg/dL 92 Hemoglobin A1c (<5.7) % Calcium (8.5-10.1) mg/dL 8.8 Magnesium (1.8-2.4) mg/dL 1.8 Total Bilirubin (0.2-1.0) mg/dL AST (15-37) U/L ALT (14-59) U/L Alkaline Phosphatase (46-116) U/L NT-Pro-B Natriuret Pep (<300) pg/mL Total Protein (6.4-8.2) g/dL Albumin (3.4-5.0) g/dL Procalcitonin ng/mL Urine Color (Yellow) Yellow Urine Clarity (Clear) Clear Urine pH (5-8) 7.0 Ur Specific Brule (1.005-1.025) 1.015 Urine Protein (Negative) mg/dL 30 H Urine Ketones (Negative) mg/dL Negative Urine Blood (Negative) Trace-lysed H Urine Nitrite (Negative) Negative Urine Bilirubin (Negative) Negative Urine Urobilinogen (Up to 0.2) mg/dL 0.2 Ur Leukocyte Esterase (Negative) Negative Urine RBC (0-2) HPF 3-5 H Urine WBC (0-5) HPF 0-2 Ur Epithelial Cells (Negative) HPF Rare Urine Crystals (Negative) HPF Negative Urine Bacteria (Negative) HPF Negative Urine Casts (Negative) LPF Negative Urine Mucus (Negative) Negative Urine Other (Negative) Negative Ur Culture Indicated? No Urine Glucose (Negative) mg/dL Negative COVID-19 Source SARS-CoV-2 (PCR) (Negative) Influenza Type A (PCR) (Negative) Influenza Type B (PCR) (Negative) Urine Legionella Ag (Negative) M. pneumoniae Source M. pneumoniae (PCR) RSV (PCR) (Negative) Ur Strep pneumoniae Ag (Negative) Add-On Test Request Range/Units 01/28/23 01/28/23 01/29/23 17:15 Unknown 09:58 WBC (4.4-10.8) 10^3/uL RBC (3.93-5.22) 10^6/uL Hgb (11.2-15.7) g/dL Hct (36.0-46.0) % MCV (80-95) fL MCH (27.0-33.0) pg MCHC (32.0-36.0) % RDW (11.7-14.6) % Plt Count (130-400) 10^3/uL MPV (8.0-11.0) fL Immature Gran % Neutrophils % Lymphocytes % Monocytes % Eosinophils % Basophils % Nucleated RBC % (0.0-0.3) % Absolute Neutrophils (1.2-6.7) 10^3/uL Absolute Lymphocytes (1.2-3.4) 10^3/uL Absolute Monocytes (0.1-0.8) 10^3/uL Absolute Eosinophils (0.0-0.7) 10^3/uL Absolute Basophils (0.0-0.2) 10^3/uL RBC Morphology VBG Lactate (0.6-1.4) mmol/L 3.2 H* Cancelled Sodium (136-145) mmol/L 141 Potassium (3.5-5.1) mmol/L 4.1 Chloride (98-107) mmol/L 104 Carbon Dioxide (21.0-32.0) mmol/L 29.5 Anion Gap (3-11) mmol/L 7.5 BUN (7-18) mg/dL 19 H Creatinine (0.55-1.02) mg/dL 0.8 Est GFR (CKD-EPI 2020) (mL/min/1.73m2) 73.52 Glucose (74-106) mg/dL 142 H Hemoglobin A1c (<5.7) % Calcium (8.5-10.1) mg/dL 8.5 Magnesium (1.8-2.4) mg/dL Total Bilirubin (0.2-1.0) mg/dL 0.5 AST (15-37) U/L 18 ALT (14-59) U/L 40 Alkaline Phosphatase (46-116) U/L 41 L NT-Pro-B Natriuret Pep (<300) pg/mL Total Protein (6.4-8.2) g/dL 6.6 Albumin (3.4-5.0) g/dL 2.9 L Procalcitonin ng/mL 0.1 Cancelled Urine Color (Yellow) Urine Clarity (Clear) Urine pH (5-8) Ur Specific Brule (1.005-1.025) Urine Protein (Negative) mg/dL Urine Ketones (Negative) mg/dL Urine Blood (Negative) Urine Nitrite (Negative) Urine Bilirubin (Negative) Urine Urobilinogen (Up to 0.2) mg/dL Ur Leukocyte Esterase (Negative) Urine RBC (0-2) HPF Urine WBC (0-5) HPF Ur Epithelial Cells (Negative) HPF Urine Crystals (Negative) HPF Urine Bacteria (Negative) HPF Urine Casts (Negative) LPF Urine Mucus (Negative) Urine Other (Negative) Ur Culture Indicated? Urine Glucose (Negative) mg/dL COVID-19 Source SARS-CoV-2 (PCR) (Negative) Influenza Type A (PCR) (Negative) Influenza Type B (PCR) (Negative) Urine Legionella Ag (Negative) M. pneumoniae Source M. pneumoniae (PCR) RSV (PCR) (Negative) Ur Strep pneumoniae Ag (Negative) Add-On Test Request Range/Units 01/29/23 01/29/23 09:58 09:58 WBC (4.4-10.8) 10^3/uL 11.60 H RBC (3.93-5.22) 10^6/uL 3.38 L Hgb (11.2-15.7) g/dL 10.8 L Hct (36.0-46.0) % 33.6 L MCV (80-95) fL 99 H MCH (27.0-33.0) pg 32.0 MCHC (32.0-36.0) % 32.1 RDW (11.7-14.6) % 13.5 Plt Count (130-400) 10^3/uL 183 MPV (8.0-11.0) fL 9.6 Immature Gran % 0.7 Neutrophils % 59.4 Lymphocytes % 32.4 Monocytes % 4.7 Eosinophils % 2.2 Basophils % 0.6 Nucleated RBC % (0.0-0.3) % 0.0 Absolute Neutrophils (1.2-6.7) 10^3/uL 6.89 H Absolute Lymphocytes (1.2-3.4) 10^3/uL 3.76 H Absolute Monocytes (0.1-0.8) 10^3/uL 0.55 Absolute Eosinophils (0.0-0.7) 10^3/uL 0.26 Absolute Basophils (0.0-0.2) 10^3/uL 0.07 RBC Morphology VBG Lactate (0.6-1.4) mmol/L 1.7 H Sodium (136-145) mmol/L Potassium (3.5-5.1) mmol/L Chloride (98-107) mmol/L Carbon Dioxide (21.0-32.0) mmol/L Anion Gap (3-11) mmol/L BUN (7-18) mg/dL Creatinine (0.55-1.02) mg/dL Est GFR (CKD-EPI 2020) (mL/min/1.73m2) Glucose (74-106) mg/dL Hemoglobin A1c (<5.7) % Calcium (8.5-10.1) mg/dL Magnesium (1.8-2.4) mg/dL Total Bilirubin (0.2-1.0) mg/dL AST (15-37) U/L ALT (14-59) U/L Alkaline Phosphatase (46-116) U/L NT-Pro-B Natriuret Pep (<300) pg/mL Total Protein (6.4-8.2) g/dL Albumin (3.4-5.0) g/dL Procalcitonin ng/mL Urine Color (Yellow) Urine Clarity (Clear) Urine pH (5-8) Ur Specific Brule (1.005-1.025) Urine Protein (Negative) mg/dL Urine Ketones (Negative) mg/dL Urine Blood (Negative) Urine Nitrite (Negative) Urine Bilirubin (Negative) Urine Urobilinogen (Up to 0.2) mg/dL Ur Leukocyte Esterase (Negative) Urine RBC (0-2) HPF Urine WBC (0-5) HPF Ur Epithelial Cells (Negative) HPF Urine Crystals (Negative) HPF Urine Bacteria (Negative) HPF Urine Casts (Negative) LPF Urine Mucus (Negative) Urine Other (Negative) Ur Culture Indicated? Urine Glucose (Negative) mg/dL COVID-19 Source SARS-CoV-2 (PCR) (Negative) Influenza Type A (PCR) (Negative) Influenza Type B (PCR) (Negative) Urine Legionella Ag (Negative) M. pneumoniae Source M. pneumoniae (PCR) RSV (PCR) (Negative) Ur Strep pneumoniae Ag (Negative) Add-On Test Request
[2023-01-30] MEDS: Gabapentin 400 MG CAP PO ×2 (08:59→13:06)
[2023-01-30] MEDS: predniSONE 20 MG TAB 40 MG PO (08:59)
[2023-01-30] MEDS: Aspirin E.C. 81 MG TABEC PO (09:00)
[2023-01-30] MEDS: guaiFENesin 600 MG TABCR PO ×2 (09:00→19:58)
[2023-01-30] MEDS: Omeprazole 20 MG CAPCR PO (09:00)
[2023-01-30] MEDS: Mirabegron 25 MG TABCR PO (09:00)
[2023-01-30] MEDS: Cholecalciferol (Vitamin D3) 400 UNIT TAB PO ×2 (09:00→19:57)
[2023-01-30] MEDS: Cyanocobalamin 500 MCG TAB 1000 MCG PO (09:00)
[2023-01-30] MEDS: Magnesium Oxide 400 MG TAB PO ×3 (09:01→19:56)
[2023-01-30] MEDS: Lisinopril 2.5 MG TAB PO (09:01)
[2023-01-30] MEDS: Baclofen 10 MG TAB 20 MG PO ×3 (09:01→19:56)
[2023-01-30] MEDS: Docusate Sodium 100 MG CAP PO ×2 (09:01→19:56)
[2023-01-30] MEDS: Multivitamin TAB 1 TAB PO (09:01)
[2023-01-30] MEDS: Senna TAB 1 TAB PO ×2 (09:01→19:56)
[2023-01-30] MEDS: Calcium Carbonate 1.25 GM TAB PO ×2 (09:01→20:17)
--- NOTE | 2023-01-30 12:55 | W.SPSTE ---
Date of service: 01/30/23 Time of Service: 12:45 Subjective Clinical (Bedside) Swallow Evaluation Speech Language Pathology Patient referred for Clinical Swallow Evaluation from Kae Guo given concerns with clearance of secretions. Precautions: Pressure Ulcers, Standard, Full Code SUBJECTIVE: Patient received alert/awake, agreeable to evaluation, able to communicate wants/needs effectively; able to demonstrate comprehension of recommendations for safe p.o. intake upon discharge once deemed medically stable.? Gerardo reports inability to initiate a cough, she feels like she would like to cough and clear her lungs and throat but is unable to achieve this. She denies worsening urge to cough with food/drink. She reports good oral care routine. She denies s/sx aspiration, sensation of pharyngeal residue, or reflux symptoms. ? 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 She had left pleural thickening on CT. She also has history of breast cancer, ILD, PNA, frequent UTI's, HTN, history of smoking, and DM2. She was admitted with suspected PNA, but per pulmonology this is not considered likely cause of her symptoms. Further workup underway for differentials related to history of breast cancer, ILD. Outpatient PET/CT has been ordered. Predisposing dysphagia risk factors: Cervical spinal cord injury, Clinical signs of possible chronic dysphagia: PNAs Precipitating dysphagia risk factors / triggering event: ?PNA, inability to cough and clear secretions. ? IMPRESSIONS & PLAN: Cranial nerve exam and PO trials are minimally concerning for oral-pharyngeal dysphagia. It is more likely an issue with secretion management secondary to reduced diaphragm recruitment, aging, and bedbound status. We discussed initiating volitional saliva swallows to clear pharyngeal secretions more frequently. Given she has been unable to independently clear secretions on her own for some time, she would benefit from a home suction device given her level/extent of injury. There is a chance she could improve her cough strength with expiratory muscle strength training, patient's family would need to order devices and work with home health RECREATION INSTRUCTOR. Given her inability to produce adequate cough, it is reasonable to put her on soft/bite size diet in order to prevent airway obstruction, especially because she is also experiencing SOB and may be at risk of poor coordination of breathing with swallowing. She and family should also focus on increasing frequency and diligence with oral care as outlined below. Further RECREATION INSTRUCTOR services: HOME HEALTH for cough strengthening (Alison Breather or [facility]) ? PROVIDER RECOMMENDATIONS RECREATION INSTRUCTOR Home Health Diet Texture Modification(s): IDDSI Level(s) SOLIDS 6-Soft & Bite-Sized Solids LIQUIDS 0-Thin Liquids Medication Intake: Whole with 0-Thin Liquids or 4-Extremely Thick Liquids as tolerated. RISK MANAGEMENT: HOB upright as tolerated; upright for all PO intake. Oral hygiene BID/2x per day & before/after PO intake, using friction with toothbrush on all oral structures as tolerated, suction PRN Level of Assistance/Supervision: Total Feed assist PO intake only when awake/alert? Strategies/Adaptations/Assistive Equipment: Small sips and bites when eating Slow rate of intake Posture/Positioning Needs: Maintain upright position at least 30 minutes after meals Avoid meals/snacks 2-3 hours prior to reclining/sleeping Sleep with head of bed elevated to reduce likelihood of nocturnal reflux PFSH All Active Problems?(Updated 01/29/23 @ 14:25 by Grace Loco MD) Advanced care planning/counseling discussion (Acute) Quadriplegia (Acute) Palliative care encounter (Acute) Constipation (Acute) Discharge planning issues (Acute) DVT prophylaxis (Acute) Shortness of breath (Acute) Pneumonia (Acute) Acute UTI (Acute) Spinal stenosis, lumbar (Acute) Primary malignant neoplasm of breast (Acute) Neurogenic claudication (Acute) Hypothyroidism (Chronic) Hypertension (Chronic) Constipation due to neurogenic bowel (Acute) Benign neoplasm of colon (Acute) Autonomic dysreflexia (Acute) Arm edema (Acute) Nail dystrophy (Acute) UTI (urinary tract infection) (Acute) Transaminitis (Acute) Bladder spasm (Acute) COVID-19 ruled out (Acute) Neuropathic pain of finger of right hand (Acute) Fungal dermatitis (Acute) Chronic suprapubic catheter (Chronic) Hypomagnesemia (Acute) Acute UTI (Acute) Infiltrate of lung present on imaging of chest (Acute) UTI (urinary tract infection) (Acute) Hyperlipemia (Chronic) Intracranial aneurysm (Chronic) AAA (abdominal aortic aneurysm) (Chronic) Suprapubic catheter (Chronic) Diabetes mellitus (Chronic) Neurogenic bladder (Chronic) Paraplegia (Chronic) Medical History? Cervical disc disorder CTS (carpal tunnel syndrome) left wristESBL (extended spectrum beta-lactamase) producing bacteria infection History of breast cancer Interstitial lung disease Pressure ulcer Surgical History? H/O breast surgery H/O cervical spine surgery S/P cholecystectomy S/P rotator cuff repair S/P trigger finger release S/P tubal ligation ? OBJECTIVE: Respiratory: room air, reports she wishes she could cough stuff up from her lungs Language: Grossly WFL Mental Status: Alert and Oriented Recall of current events intact Speech: WFL Oral Motor Exam: ? Dentition ? Natural dentition ? Good condition ? Oral Mucosa ? Good oral care ? CN V - Trigeminal ? Jaw Movement ? WFL ? CN VII ? Labial/Facial ? WFL ? But tender facial muscles reported to touch ? CN IX ? Palate ? WFL ? CN X ? Laryngeal ? Vocal quality ? Clear dry Mildly quiet ? Volitional cough ? Extremely Weak ? CN XII ? Lingual ? WFL ? Volitional Swallow ? Robust laryngeal elevation ? Geraldine Swallow Protocol Results ? PASS: Complete/uninterrupted without s/sx aspiration ? Food items tested: ?? IDDSI 0: IDDSI 4: IDDSI 7: Oral phase: WFL Pharyngeal phase: WFL Provided education to: Patient,Nursing, MD Topics Addressed: anatomy/physiology of swallowing mechanism, overt s/sx to monitor for re: potential aspiration of food / liquids, recommendations for improved oral care, relationship between respiratory function changes and deglutition, Rationale for recommendations as outlined Outcome: Verbalized/demonstrated understanding TIME SPENT: 25 minutes Coding Diagnoses CPT Codes EVALUATE SWALLOWING FUNCTION - [id number] ([id number])
--- NOTE | 2023-01-30 12:59 | W.PM.PROGNOT ---
Date of Service Date of service: 01/30/23 Time of Service: 12:59 Assessment and Plan Assessment and plan (1) Pneumonia: Status: Acute Assessment and plan: completed doxycycline, zosyn (Day 6), wean steroids, prn nebs. encourage pulmonary toileting Legionella urine Ag negative. Strep urine antigen and sputum for mycoplasma negative. MRSA nares negative. Sputum C&S pending pulmonology consulted and will follow outpatient, see notes. notes: Failed levofloxacin as outpatient. H/o tobacco abuse, ILD. (2) Hypertension: Status: Chronic Assessment and plan: Not on medications at home and does have NIDDM2 and h/o AAA, so even though there may be a component of autonomic dysfunction associated with the constipation in setting of quadriplegia causing the hypertension, given baseline hypertension and h/o AAA as well as a h/o intracranial aneurysm (3) Diabetes mellitus: Status: Chronic Assessment and plan: A1C of 6.2. Non-insulin dependent. Continue to hold metformin in house. Continue SSI. Continue carb consistent diet. 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 In setting of fever, catheter was changed today 01/27 and UA sent today was negative (5) Constipation: Status: Acute Assessment and plan: Schedule bowel regimen. Could be the trigger for hypertension. (6) DVT prophylaxis: Status: Acute Assessment and plan: Enoxaparin (7) Discharge planning issues: Status: Acute Assessment and plan: Continues to require hospitalization Anticipate discharge home with resumption of home health once medically stable Discussed with Dr Bey Subjective Subjective Patient reports: no new complaints and feels better; denies afebrile Exam Const General: cooperative and no acute distress Orientation: alert, awake and oriented x3 HENMT Head: normal to inspection Ears: hearing grossly normal bilaterally Face and sinus: normal facial exam Mouth: oral mucosae normal Eyes General: appearance normal, both eyes and all related structures Neck Neck: normal visual inspection and supple Resp Effort & Inspection: normal respiratory effort and able to speak in complete sentences Cardio Rate: regular rate Rhythm: regular rhythm Skin Lesions: other (pressure area on coccyx covered with mepilex, no drainage or erythema) Rashes: no rashes Neuro General: patient alert, patient awake and patient oriented x3 Cognition: normal cognition Speech: abnormal speech stuttering (baseline) Extrem Other: Atrophic appearing bilateral lower extremities. Contracted upper extremities Psych Appearance: grossly normal Mental Status: mental status grossly normal Affect: normal affect Objective Last Vital Signs Temp 37 C 01/30/23 11:22 Pulse 72 01/30/23 11:22 Resp 18 01/30/23 11:22 BP 152/80 H 01/30/23 11:22 Pulse Ox 92 01/30/23 11:22 Time Spent with Patient Time Spent with Patient: 25-34 minutes Time was spent: preparing to see the patient(eg.review tests), obtaining and/or reviewing separately otained hiistory, ordering medications,tests, procedures, indepentently interpreting results and counseling the patient
[2023-01-30] MEDS: Insulin Aspart 300 UNITS/3 ML PEN SC (18:04)
--- NOTE | 2023-01-30 18:24 | CMPROGNOTE_ITS ---
Date of service: 01/30/23 Time of Service: 18:24 Care Management Progress Note Progress Note Text Progress Note Text: S/O: Gerardo remains inpatient, anticipate new [facility] orders for wound care; RN/PT/OT/SEISMOLOGY TEACHER (for increased service support), CM faxed updated clinicals to Elisha at [facility]. CM continues to follow. A:?82 year old female admitted to [facility] 01/23/23 with SOB P: Gerardo will be discharged home with a resumption of Home Health services with addition of wound care and SEISMOLOGY TEACHER when medically cleared by provider.? She will follow up with her PCP and plan of care as instructed following discharge.? She will be transported home by ambulance coordinated by CM when ready.? CM will continue to support patient and discharge planning needs.
[2023-01-30] MEDS: Atorvastatin 10 MG TAB PO (19:57)
[2023-01-30] MEDS: Normal Saline Flush 10 ML SYR IVP (19:58)
[2023-01-30] MEDS: Gabapentin 600 MG TAB PO (22:51)
[2023-01-30] MEDS: Enoxaparin 40 MG/0.4 ML SYR SC (22:51)
[2023-01-30] MEDS: Insulin Glargine 300 UNITS/3 ML PEN 15 UNITS SC (22:52)
[2023-01-31 04:08] VITALS: BP 144/76; PULSE 68; RESP 20; TEMP 36.1; O2SAT 94
[2023-01-31] MEDS: Levothyroxine 75 MCG TAB PO (05:58)
[2023-01-31 06:43] LABS: Absolute Basophil Count 0.06 10^3/uL (0.0-0.2); Absolute Lymphocyte Count 4.81 10^3/uL (1.2-3.4); Absolute Monocyte Count 0.71 10^3/uL (0.1-0.8); Absolute Neutrophil Count 5.34 10^3/uL (1.2-6.7); Basophils % 0.5; Eosinophils % 1.8; HCT 33.2 % (36.0-46.0); HGB 11.1 g/dL (11.2-15.7); Immature Grans % 0.9; Lymphocytes % 42.9; MCH 32.7 pg (27.0-33.0); MCHC 33.4 % (32.0-36.0); MCV 98 fL (80-95); Monocytes % 6.3; Neutrophils % 47.6; Platelet Count 213 10^3/uL (130-400); RBC 3.39 10^6/uL (3.93-5.22); RDW 13.4 % (11.7-14.6); RDW-SD 47.9 fL; WBC 11.22 10^3/uL (4.4-10.8)
[2023-01-31 07:06] LABS: ALT 35 U/L (14-59); AST 14 U/L (15-37); Albumin 2.9 g/dL (3.4-5.0); Alkaline Phosphatase 40 U/L (46-116); Anion Gap 7.8 mmol/L (3-11); BUN 25 mg/dL (7-18); Bilirubin, Total 0.6 mg/dL (0.2-1.0); CO2 26.2 mmol/L (21.0-32.0); CREATININE 0.8 mg/dL (0.55-1.02); Calcium 8.8 mg/dL (8.5-10.1); Chloride 104 mmol/L (98-107); Estimated GFR 73.52 (mL/min/1.73m2); Glucose 87 mg/dL (74-106); Potassium 4.1 mmol/L (3.5-5.1); Sodium 138 mmol/L (136-145); Total Protein 6.6 g/dL (6.4-8.2)
[2023-01-31 07:34] VITALS: BP 121/70; PULSE 68; RESP 17; TEMP 36.4; O2SAT 94
[2023-01-31] MEDS: Multivitamin TAB 1 TAB PO (08:00)
[2023-01-31] MEDS: Gabapentin 400 MG CAP PO ×2 (08:00→11:07)
[2023-01-31] MEDS: Aspirin E.C. 81 MG TABEC PO (08:00)
[2023-01-31] MEDS: Cyanocobalamin 500 MCG TAB 1000 MCG PO (08:01)
[2023-01-31] MEDS: Docusate Sodium 100 MG CAP PO (08:01)
[2023-01-31] MEDS: Calcium Carbonate 1.25 GM TAB PO (08:01)
[2023-01-31] MEDS: Lisinopril 2.5 MG TAB PO (08:01)
[2023-01-31] MEDS: predniSONE 20 MG TAB 40 MG PO (08:01)
[2023-01-31] MEDS: Mirabegron 50 MG TABCR PO (08:01)
[2023-01-31] MEDS: guaiFENesin 600 MG TABCR PO (08:01)
[2023-01-31] MEDS: Baclofen 10 MG TAB 20 MG PO (08:01)
[2023-01-31] MEDS: Omeprazole 20 MG CAPCR PO (08:01)
[2023-01-31] MEDS: Senna TAB 1 TAB PO (08:01)
[2023-01-31] MEDS: Cholecalciferol (Vitamin D3) 400 UNIT TAB PO (08:01)
[2023-01-31] MEDS: Magnesium Oxide 400 MG TAB PO (09:00)
[2023-01-31] MEDS: Insulin Aspart 300 UNITS/3 ML PEN SC (11:07)
[2023-01-31 11:15] VITALS: BP 168/78; PULSE 72; RESP 17; TEMP 35.8; O2SAT 94
--- NOTE | 2023-01-31 11:42 | PDOC.CMDIS ---
Date of service: 01/31/23 Time of Service: 11:42 LACE Index Scoring Tool Questions: Length of Stay (in days): 7 - 13 Was the patient admitted via the E.D.?: Yes Comorbidities: Diabetes w/o Complication and Any Tumor E.D. Visits: 3 Answers: Total Score: 14 Risk of Readmission: High Risk Care Management Discharge Plan Reason for Hospitalization: Shortness of breath Discharge Plan: Gerardo is discharged home with resumption of HH services via [facility]. Gerardo will follow up with [facility] Pulmonology, PCP, Palliative and her discharge plan as instructed. Wound care orders are faxed to [facility], as requested. JOCELYN reviewed this discharge plan with Navin Verma. Patient/Family Education Needs: Review discharge instructions, limitations and plan to follow up with community providers. Discuss ask me three. Services Needed at Discharge: Home Health Care Services (Resumption of [facility] RN/PT/OT, add ADULT EDUCATION TEACHER (recommend increased caregiver support).) and Transportation ([place], coordinated by JOCELNY and reviewed with navin Luci.)
--- NOTE | 2023-01-31 12:28 | DSE_ITS ---
Date of service: 01/31/23 Time of Service: 12:30 DS: Diagnosis Discharge Diagnosis (1) Pneumonia: Status: Acute (2) Hypertension: Status: Chronic (3) Diabetes mellitus: Status: Chronic (4) Neurogenic bladder: Status: Chronic (5) Constipation: Status: Acute Discharge Plan Disposition Patient Disposition: Home W/Home Health Services Condition: Stable Discharge Details Reason For Visit: Shortness of Breath Admit Date/Time: 01/23/23 19:16 Admit Provider: Armen Parker Attending Provider: Armen Parker Primary Care Provider: Nida Farooq [facility] Course Hospital Course: This is a 82-year-old female patient with a history of quadriplegia, neurogenic bladder with suprapubic catheter history of AAA hyperlipidemia spinal stenosis who presented to the emergency department with respiratory symptoms diagnosed with pneumonia. She was admitted and treated with steroids and IV antibiotics. She initially responded and was weaned off oxygen but day 4 started running fever again. Blood cultures remained negative no additional source of infection was identified she was evaluated by infusion nurse who did not think her CT and symptoms were impressive for pneumonia but did recommend to continue her course to cover For 5 days. She suspects that the pleural thickening represented malignancy such as mesothelioma but also that it could be related to previous breast cancer treatment or possibly related to her ILD. Plan is for her to have outpatient PET/CT scan which will be arranged through pulmonary. She is also planning on working up her ILD as outpatient. She has no longer febrile hemodynamically she has been stable she is eating and drinking she feels back to her baseline with no complaints and is agreeable to her discharge home. She was started on lisinopril for elevated blood pressures while hospitalized she will be discharged to home on a steroid taper. No further antibiotics indicated. She will follow up out outpatient with Dr. Anthony in pulmonary clinic for further evaluation. She is being discharged to home with resumption of home health services, to include nursing physical therapy occupational therapy medical records analyst and speech for cough strength and secretion management. Please see speech therapy inpatient consultation Discharge is discussed with Dr. Curtis Home Meds and New Rx's Prescriptions: New prednisone 20 mg Tablet See Taper PO DAILY Qty: 20 0RF Taper: Prednisone 10mg taper 40 mg Daily for 2 Days and 0 Hour 30 mg Daily for 2 Days and 0 Hour 20 mg Daily for 2 Days and 0 Hour 10 mg Daily for 2 Days and 0 Hour 5 mg Daily for 2 Days and 0 Hour lisinopril 2.5 mg Tablet 2.5 mg PO DAILY Qty: 30 0RF Continued magnesium oxide 400 mg magnesium capsule 400 mg PO BID AZO D-Mannose 500 mg capsule 1,000 mg PO BID cyanocobalamin (vitamin B-12) 1,000 mcg capsule 1,000 mcg PO DAILY lidocaine 5 % cream 1 applic topical TID PRN calcium carbonate-vitamin D3 [Calcium 500 With D] 500 mg(1,250mg) -400 unit Tablet 1 tab PO BID gabapentin 600 mg tablet 600 mg PO HS Rx Instructions: (in addition 400mg BID @ ,) Renacidin 1,980.6 mg-59.4 mg-980.4mg/30mL solution 30 ml irrigation DAILY levothyroxine 75 mcg tablet 75 mcg PO QAM sennosides [senna] 8.6 mg Tablet 8.6 mg PO QHS omeprazole 20 mg Tablet,Delayed Release (Dr/Ec) 20 mg PO DAILY ondansetron 4 mg tablet,disintegrating 4 mg PO Q8H PRNQty: 10 0RF multivitamin Tablet 1 tab PO DAILY metformin 500 mg Tablet 1,000 mg PO BID atorvastatin 10 mg Tablet 10 mg PO HS aspirin 81 mg Tablet,Delayed Release (Dr/Ec) 81 mg PO DAILY baclofen 10 mg tablet 20 mg PO TID acetaminophen 500 mg tablet 1,000 mg PO TID PRN gabapentin [Neurontin] 400 mg capsule 400 mg PO BID Rx Instructions: @ 08 & noon (in addition to 600mg qHS) Changed Myrbetriq 25 mg tablet extended release 24 hr 50 mg PO DAILY Qty: 90 3RF Discharge Instructions Instructions: Shortness of Breath (DC) Additional Instructions: routine skin care prior to dressing changes and prn then apply - Sacral mepilex dressing on pt.'s bilateral coccyx/sacrum for pressure injury prevention. Dressing to be changed q7d and PRN. - Mepilex dressings applied in pt.'s bilateral gluteal folds (where the buttock meets the thigh). One small superficially open area noted in each gluteal fold. consider air mattress or similar protection for decubitus prevention Stand Alone Forms: Nursing Discharge Form Referrals: Nida Farooq [Primary Care Provider] - (A Nurse from [facility] will call you to set up an Apointment. If they do not call you in the next day please call [phone]) Ghada Ochoa MD [ [facility] STAFF PHYSICIAN] - (Please call [phone] on Thursday to make an Appointment ) Grace Loco MD [ [facility] STAFF PHYSICIAN] - (continuity of care) Activity:: Activity as Tolerated Equipment/Supplies:: No Equipment Needed Diet:: Carb Counting Discharge Orders Discharge Orders: Discharge Order (Routine); Ordered 01/31/23 Ordered By: Kae Guo Discharge Data Discharge Date/Time-TO BE ENTERED AT DEPARTURE: 01/31/23 13:52 DS: Summary Time Spent with Patient providing and/or coordinating discharge services: Greater than 30 minutes Status at Discharge Functional status at discharge: bed bound Overall status at discharge: patient is back to baseline Mental Status: mental status grossly normal Speech and Movement: speech and movement normal Mood: congruent mood Affect: normal affect Exam Const General: cooperative and no acute distress Orientation: alert, awake and oriented x3 HENMT Head: normal to inspection Ears: hearing grossly normal bilaterally Face and sinus: normal facial exam Mouth: oral mucosae normal Eyes General: appearance normal, both eyes and all related structures Neck Neck: normal visual inspection and supple Resp Effort & Inspection: normal respiratory effort and able to speak in complete sentences Cardio Rate: regular rate Rhythm: regular rhythm Skin Lesions: other (pressure area on coccyx covered with mepilex, no drainage or erythema) Rashes: no rashes Neuro General: patient alert, patient awake and patient oriented x3 Cognition: normal cognition Speech: abnormal speech stuttering (baseline) Extrem Other: Atrophic appearing bilateral lower extremities. Contracted upper extremities Psych Appearance: grossly normal Mental Status: mental status grossly normal Speech and Movement: speech and movement normal Mood: congruent mood Affect: normal affect DS: Data Vitals/I&O Vitals and I&O: Vital Signs Temperature 35.8 C L 01/31/23 11:15 Temperature Source Tympanic 01/31/23 11:15 Pulse 72 01/31/23 11:15 Pulse Rhythm Regular 01/31/23 09:07 Pulse 84 01/23/23 20:00 Respiratory Rate 17 01/31/23 11:15 Respiratory Effort Normal 01/31/23 09:07 Respiratory Depth Normal 01/31/23 09:07 Respiratory Pattern Normal 01/31/23 09:07 Blood Pressure 168/78 H 01/31/23 11:15 Blood Pressure Position Supine 01/23/23 16:09 Pulse Oximetry 94 01/31/23 11:15 Oxygen Delivery Method Room Air 01/31/23 11:15 Oxygen Flow Rate 0 01/31/23 11:15 Pain Level 2 01/31/23 11:15 Comment left leg 01/30/23 03:13 Intake & Output 01/30/23 01/31/23 01/31/23 23:59 11:59 23:59 Intake Total 350 / 700 120 / 120 Output Total / 2009 600 / 600 Balance -550 / -1310 -480 / -480 Intake: IV 50 / 250 Oral 300 / 450 120 / 120 Output: Urine 2009 600 / 600 Other: Urine Color Yellow Pale Urine Appearance Cloudy Clear Stool Size Small Data Completed and Pending Labs on day of discharge: Labs from last 24 hours 01/31/23 01/31/23 06:26 06:26 WBC 11.22 H RBC 3.39 L Hgb 11.1 L Hct 33.2 L MCV 98 H MCH 32.7 MCHC 33.4 RDW 13.4 Plt Count 213 MPV 10.0 Immature Gran % 0.9 Neutrophils % 47.6 Lymphocytes % 42.9 Monocytes % 6.3 Eosinophils % 1.8 Basophils % 0.5 Nucleated RBC % 0.0 Absolute Neutrophils 5.34 Absolute Lymphocytes 4.81 H Absolute Monocytes 0.71 Absolute Eosinophils 0.20 Absolute Basophils 0.06 Sodium 138 Potassium 4.1 Chloride 104 Carbon Dioxide 26.2 Anion Gap 7.8 BUN 25 H Creatinine 0.8 Est GFR (CKD-EPI 2020) 73.52 Glucose 87 Calcium 8.8 Total Bilirubin 0.6 AST 14 L ALT 35 Alkaline Phosphatase 40 L Total Protein 6.6 Albumin 2.9 L Preliminary micro results at discharge 01/29/23 09:58 Blood Culture - Preliminary Blood NO GROWTH 48 HOURS 01/28/23 17:15 Blood Culture - Preliminary Blood NO GROWTH 48 HOURS PFSH All Active Problems (Updated 01/30/23 @ 11:03 by Ghada Ochoa MD) Pleural thickening (Acute) Pleural effusion (Acute) Pressure ulcer (Acute) Advanced care planning/counseling discussion (Acute) Quadriplegia (Acute) Palliative care encounter (Acute) Constipation (Acute) Discharge planning issues (Acute) DVT prophylaxis (Acute) Shortness of breath (Acute) Pneumonia (Acute) Acute UTI (Acute) Spinal stenosis, lumbar (Acute) Primary malignant neoplasm of breast (Acute) Neurogenic claudication (Acute) Hypothyroidism (Chronic) Hypertension (Chronic) Constipation due to neurogenic bowel (Acute) Benign neoplasm of colon (Acute) Autonomic dysreflexia (Acute) Arm edema (Acute) Nail dystrophy (Acute) UTI (urinary tract infection) (Acute) Transaminitis (Acute) Bladder spasm (Acute) COVID-19 ruled out (Acute) Neuropathic pain of finger of right hand (Acute) Fungal dermatitis (Acute) Chronic suprapubic catheter (Chronic) Hypomagnesemia (Acute) Acute UTI (Acute) Infiltrate of lung present on imaging of chest (Acute) UTI (urinary tract infection) (Acute) Hyperlipemia (Chronic) Intracranial aneurysm (Chronic) AAA (abdominal aortic aneurysm) (Chronic) Suprapubic catheter (Chronic) Diabetes mellitus (Chronic) Neurogenic bladder (Chronic) Paraplegia (Chronic) Medical History Cervical disc disorder CTS (carpal tunnel syndrome) left wrist ESBL (extended spectrum beta-lactamase) producing bacteria infection History of breast cancer Interstitial lung disease Pressure ulcer Surgical History H/O breast surgery H/O cervical spine surgery S/P cholecystectomy S/P rotator cuff repair S/P trigger finger release S/P tubal ligation Social History (Updated 01/23/23 @ 22:09 by Armen Parker) Smoking/Tobacco Use Status: Former Tobacco Use Quit Date: 08/17/06 Pack-years: 40 Smoking risk assessment performed?: Yes Alcohol Intake: never Drug use: Never Substance use type: does not use Current gender identity: female Do you feel safe at home: Yes Do you feel safe in your relationship?: Yes Additional Social history: lives with her in [place], [place]. Has home health. Time Spent with Patient Time Spent with Patient: 45-69 minutes Time was spent: preparing to see the patient(eg.review tests), obtaining and/or reviewing separately otained hiistory, ordering medications,tests, procedures, indepentently interpreting results, counseling the patient and care coordination
== END 2023-01-31 13:52 | disposition home health service (06) | DRG 196 ==
LOC: ER 19:46 → MS 20:34
PROVIDERS: Internal Medicine; Nurse Practitioner Acute Care; Nurse Practitioner Family; Admitting Provider Family Medicine; Emergency Provider Registered Nurse Emergency; PCP Nurse Practitioner Family; Visit Provider Family Medicine
DX: J84.9 Interstitial pulmonary disease, unspecified (principal); G82.50 Quadriplegia, unspecified; E87.1 Hypo-osmolality and hyponatremia; N39.0 Urinary tract infection, site not specified; K59.2 Neurogenic bowel, not elsewhere classified; J90 Pleural effusion, not elsewhere classified; I10 Essential (primary) hypertension; E11.9 Type 2 diabetes mellitus without complications; N31.9 Neuromuscular dysfunction of bladder, unspecified; K59.00 Constipation, unspecified; E78.5 Hyperlipidemia, unspecified; E03.9 Hypothyroidism, unspecified; M48.062 Spinal stenosis, lumbar region with neurogenic claudication; G90.4 Autonomic dysreflexia; R74.01 Elevation of levels of liver transaminase levels; I71.40 Abdominal aortic aneurysm, without rupture, unspecified; Z79.84 Long term (current) use of oral hypoglycemic drugs; Z93.51 Cutaneous-vesicostomy status; Z87.891 Personal history of nicotine dependence; Z85.3 Personal history of malignant neoplasm of breast; L89.152 Pressure ulcer of sacral region, stage 2; L89.322 Pressure ulcer of left buttock, stage 2; L89.312 Pressure ulcer of right buttock, stage 2; E86.0 Dehydration; S14.159S Other incomplete lesion at unspecified level of cervical spinal cord, sequela; W19.XXXS Unspecified fall, sequela
CPT/HCPCS: 36415; 71250; 76604; 80048; 80053; 84145; 85027; 87040; 87081; 87449; 87637; 92610; 97163; J1650; 71045; 71046; 74176; 81003; 81015; 83036; 83605; 83735; 83880; 85025; 87086; 87581; 87899; 94640; 94667; 94668; 94760; 99232; 99233; 99239; J0696; J2543; J2930; J3490; J7512; J7620

== ENCOUNTER 2023-02-05 07:54 | Inpatient (IN) | payer OTHER, SELFPAY ==
[2023-02-05] VITALS (35 sets, daily range): BP systolic 98–160; BP diastolic 64–80; PULSE 76–87; RESP 16–18; TEMP 36.4–37.7; O2SAT 91–98
--- NOTE | 2023-02-05 07:45 | RT.EKG_ITS ---
APPROVED REPORT Exam: Resting ECG Reason for Exam: weakness/fever Patient Location: E HR:79 bpm ECG Measurements Heart Rate 79 AXIS AZ 160 P 41 QRSd 85 QRS -1 QT 347 T 21 QTc 398 Conclusion Sinus rhythm...normal P axis, V-rate 60- 99 Normal sinus rhythm. No significant change from prior 12/03/22.
--- NOTE | 2023-02-05 08:39 | W.ED.GENAD ---
Discharge Plan Disposition Patient Disposition: Admit to [facility] Condition: Stable Discharge Details Clinical Impression: Acute UTI, Quadriplegia, Acute hyponatremia, Suprapubic catheter Admit Date/Time: 02/05/23 10:46 Admit Provider: Mervin Rosado Attending Provider: Mervin Rosado Primary Care Provider: Nida Farooq ED Provider: Rema Morrison Discharge Data Discharge Date/Time-TO BE ENTERED AT DEPARTURE: 02/05/23 13:58 Medical Decision Making Chronically ill and frail appearing 82-year-old female, soft-spoken, pale, alert and oriented, no meningismus, moist mucous membranes, no obvious rashes or lesions, nontender but distended abdomen, lungs clear to auscultation, cardiac rate rhythm regular, indwelling suprapubic catheter, no surrounding erythema, draining, no lesions visualized on lower extremities. Given age, risk factors, comorbidities, blood cultures, lactate, chest x-ray and urinalysis were ordered, prior history of Hiwot positive Urine with 20-50 white blood cells Temp of 100 orally in the emergency department Mild leukocytosis, 11,000, hyponatremia, 127 Started on fluconazole for Hiwot urinary tract infection, LR infusion for hyponatremia Patient will need admission secondary to weakness, urinary tract infection, hyponatremia Full CODE STATUS Case discussed with Dr. Rosado, agreeable to admission at this time HPI General Date/Time Provider Initiated Documentation: 02/05/23 08:00. HPI Narrative: This complex 82-year-old female with history of quadriplegia, constipation, shortness of breath, pneumonia, urinary tract infection, breast cancer MOLLY, hyperlipidemia, intracranial aneurysm neurogenic bladder and diabetes presents with report of weakness and fever. This is recurrent from her recent admission on 29 January and subsequent discharge on the . She was treated for suspected pneumonia upon admission, however pulmonology thought it was less likely that she actually has infiltrate. Concern for need for PET scan at that time. Discharged home on 5-day course of antibiotics which she has finished with return of fever. She feels weak today reportedly. She denies any pain complaints, stiff neck, headache, difficulty swallowing, sore throat, nausea, vomiting. She has an indwelling suprapubic catheter with history of urinary tract infection, but does not endorse recent diagnosis of urinary tract infection. Denies any shortness of breath. Related Data Home Medications Medication Instructions Recorded Confirmed aspirin 81 mg tablet,delayed 81 mg PO DAILY 06/23/18 02/05/23 release atorvastatin 10 mg tablet 10 mg PO HS 06/23/18 02/05/23 metformin 500 mg tablet 1,000 mg PO BID 06/23/18 02/05/23 multivitamin 1 tab PO DAILY 06/23/18 02/05/23 calcium carbonate 500 mg-vitamin 1 tab PO BID 06/16/19 02/05/23 D3 10 mcg (400 unit) tablet (Calcium 500 With D) citric ac 1980.6 mg-glucono 59.4 30 ml irrigation DAILY 12/21/19 02/05/23 mg-mag carb 980.4 mg/30 mL irrig.soln (Renacidin) baclofen 10 mg tablet 20 mg PO TID 06/24/22 02/05/23 acetaminophen 500 mg tablet 1,000 mg PO TID PRN 08/25/22 02/05/23 cyanocobalamin (vitamin B-12) 1,000 mcg PO DAILY 08/25/22 02/05/23 1,000 mcg capsule d-mannose 500 mg capsule (AZO 1,000 mg PO BID 08/25/22 02/05/23 D-Mannose) gabapentin 400 mg capsule 400 mg PO BID 08/25/22 02/05/23 (Neurontin) gabapentin 600 mg tablet 600 mg PO HS 08/25/22 02/05/23 lidocaine 5 % topical cream 1 applic topical TID PRN 08/25/22 02/05/23 magnesium oxide 400 mg PO BID 08/25/22 02/05/23 levothyroxine 75 mcg tablet 75 mcg PO QAM 12/03/22 02/05/23 omeprazole 20 mg tablet,delayed 20 mg PO DAILY 12/03/22 02/05/23 release sennosides 8.6 mg tablet (senna) 8.6 mg PO QHS 12/03/22 02/05/23 ondansetron 4 mg disintegrating 4 mg PO Q8H PRN #10 tabs 12/05/22 02/05/23 tablet lisinopril 2.5 mg tablet 2.5 mg PO DAILY #30 tabs 01/31/23 02/05/23 mirabegron 25 mg tablet,extended 50 mg PO DAILY #90 tabs 01/31/23 02/05/23 release 24 hr (Myrbetriq) prednisone 20 mg tablet See Taper PO DAILY #20 tabs 01/31/23 02/05/23 Previous Rx's Medication Instructions Recorded ondansetron 4 mg disintegrating 4 mg PO Q8H PRN #10 tabs 12/05/22 tablet lisinopril 2.5 mg tablet 2.5 mg PO DAILY #30 tabs 01/31/23 mirabegron 25 mg tablet,extended 50 mg PO DAILY #90 tabs 01/31/23 release 24 hr (Myrbetriq) prednisone 20 mg tablet See Taper PO DAILY #20 tabs 01/31/23 Allergies Allergy/AdvReac Type Severity Reaction Status Date / Time ibuprofen AdvReac Mild Nausea Unverified 02/05/23 13:14 General Stated Complaint: Fever BEVERLY: 3 PFSH All Active Problems (Updated 02/05/23 @ 15:32 by KAJAL Mejia) Acute hyponatremia (Acute) Suprapubic catheter (Acute) Pleural thickening (Acute) Pleural effusion (Acute) Pressure ulcer (Acute) Advanced care planning/counseling discussion (Acute) Quadriplegia (Acute) Palliative care encounter (Acute) Constipation (Acute) Shortness of breath (Acute) Pneumonia (Acute) Acute UTI (Acute) Spinal stenosis, lumbar (Acute) Primary malignant neoplasm of breast (Acute) Neurogenic claudication (Acute) Hypothyroidism (Chronic) Hypertension (Chronic) Constipation due to neurogenic bowel (Acute) Benign neoplasm of colon (Acute) Autonomic dysreflexia (Acute) Arm edema (Acute) Nail dystrophy (Acute) UTI (urinary tract infection) (Acute) Transaminitis (Acute) Bladder spasm (Acute) COVID-19 ruled out (Acute) Neuropathic pain of finger of right hand (Acute) Fungal dermatitis (Acute) Chronic suprapubic catheter (Chronic) Hypomagnesemia (Acute) Acute UTI (Acute) Infiltrate of lung present on imaging of chest (Acute) UTI (urinary tract infection) (Acute) Hyperlipemia (Chronic) Intracranial aneurysm (Chronic) AAA (abdominal aortic aneurysm) (Chronic) Suprapubic catheter (Chronic) Diabetes mellitus (Chronic) Neurogenic bladder (Chronic) Paraplegia (Chronic) Medical History Cervical disc disorder CTS (carpal tunnel syndrome) left wrist ESBL (extended spectrum beta-lactamase) producing bacteria infection History of breast cancer Interstitial lung disease Pressure ulcer Surgical History H/O breast surgery H/O cervical spine surgery S/P cholecystectomy S/P rotator cuff repair S/P trigger finger release S/P tubal ligation Social History (Updated 01/23/23 @ 22:09 by Armen Parker) Smoking/Tobacco Use Status: Former Tobacco Use Quit Date: 08/17/06 Pack-years: 40 Smoking risk assessment performed?: Yes Alcohol Intake: never Drug use: Never Substance use type: does not use Current gender identity: female Do you feel safe at home: Yes Do you feel safe in your relationship?: Yes Additional Social history: lives with her in [place], [place]. Has home health. Course Vital Signs Vital signs: Vital Signs Temperature 37.2 C 02/05/23 07:53 Pulse 86 02/05/23 07:53 Respiratory Rate 18 02/05/23 07:53 Blood Pressure 160/80 H 02/05/23 07:53 Pulse Oximetry 96 02/05/23 07:53 Temperature 37.2 C 02/05/23 07:53 Temperature Source Oral 02/05/23 07:53 Pulse 86 02/05/23 07:53 Respiratory Rate 18 02/05/23 07:53 Respiratory Effort Normal, Non-Labored 02/05/23 08:27 Blood Pressure 160/80 H 02/05/23 07:53 Blood Pressure Position Supine 02/05/23 07:53 Pulse Oximetry 96 02/05/23 07:53 Oxygen Delivery Method Room Air 02/05/23 07:53 Oxygen Flow Rate 0 02/05/23 07:53 Pain Level 0 02/05/23 07:53 Lab/Test Results Lab/Test Results: 02/05/23 08:13 Blood Blood Culture - Pending 02/05/23 08:13 Blood Blood Culture - Pending
[2023-02-05 09:10] LABS: Abs Immature Grans 0.09 10^3/uL (0.0-0.06); Absolute Basophil Count 0.02 10^3/uL (0.0-0.2); Absolute Eosinophil Count 0.02 10^3/uL (0.0-0.7); Absolute Monocyte Count 0.72 10^3/uL (0.1-0.8); Basophils % 0.2; Eosinophils % 0.2; HCT 32.9 % (36.0-46.0); HGB 11.4 g/dL (11.2-15.7); Immature Grans % 0.8; Lactate 1.4 mmol/L (0.6-1.4); Lymphocytes % 32.6; MCH 32.3 pg (27.0-33.0); MCHC 34.7 % (32.0-36.0); MCV 93 fL (80-95); MPV 9.8 fL (8.0-11.0); Monocytes % 6.4; Neutrophils % 59.8; Platelet Count 244 10^3/uL (130-400); RBC 3.53 10^6/uL (3.93-5.22); RDW-SD 44.2 fL; WBC 11.18 10^3/uL (4.4-10.8)
[2023-02-05 09:12] LABS: Absolute Lymphocyte Count 3.64 10^3/uL (1.2-3.4); Absolute Neutrophil Count 6.69 10^3/uL (1.2-6.7)
[2023-02-05 09:37] LABS: Source Nasal/Nares
[2023-02-05 09:46] LABS: ALT 52 U/L (14-59); AST 26 U/L (15-37); Albumin 3.3 g/dL (3.4-5.0); Alkaline Phosphatase 43 U/L (46-116); Anion Gap 7.9 mmol/L (3-11); BUN 20 mg/dL (7-18); Bilirubin, Total 0.7 mg/dL (0.2-1.0); CO2 26.1 mmol/L (21.0-32.0); CREATININE 0.7 mg/dL (0.55-1.02); Calcium 8.9 mg/dL (8.5-10.1); Chloride 93 mmol/L (98-107); Glucose 128 mg/dL (74-106); Magnesium 1.8 mg/dL (1.8-2.4); Potassium 4.6 mmol/L (3.5-5.1); Sodium 127 mmol/L (136-145); TSH (W/Ref FT4) 1.39 uIU/mL (0.36-3.74); Troponin I < 50 ng/L (<or=60)
[2023-02-05 10:03] LABS: Procalcitonin < 0.1 ng/mL
--- NOTE | 2023-02-05 10:27 | DI.RAD_ITS ---
Exam(s) XR PORTABLE CHEST AP EXAM: XR PORTABLE CHEST AP CLINICAL HISTORY: fever TECHNIQUE: 2D digital imaging was performed. COMPARISON: CR XR CHEST 1V IN DI DEPT from 12/03/2022 CR,XR XR CHEST 2V PA LATERAL from 01/23/[address] CHEST/ABD/PEL WO from 01/28/2023 CR XR PORTABLE CHEST AP from 01/28/2023 FINDINGS: Semi-erect position. Lower lung william are obscured by abdominal soft tissues. LUNGS: Clear. No pleural abnormality seen. HEART: Normal size. AORTA: Normal diameter. BONES: Hardware in cervical spine. Degenerative changes of both shoulders. Soft tissues: Unremarkable. IMPRESSION: No acute findings. DATA REPOSITORY: RADIATION DOSE DELIVERED:
[2023-02-05 10:28] LABS: COVID-19 PCR Negative (Negative)
[2023-02-05 12:43] LABS: Bilirubin Negative (Negative); Blood Small (Negative); Clarity Sl Cloudy (Clear); Glucose Negative (Negative); Ketones Negative (Negative); Leukocyte Esterase Moderate (Negative); Nitrite Negative (Negative); Urobilinogen 0.2 mg/dL (Up to 0.2); pH 6.5 (5-8)
[2023-02-05 12:58] LABS: Troponin I < 50 ng/L (<or=60)
[2023-02-05 13:07] LABS: Bacteria Few HPF (Negative); Epithelial Cells Rare HPF (Negative); Other Cells Few Yeast (Negative)
[2023-02-05 13:08] LABS: C & S Indicated? Yes; Casts Negative LPF (Negative); Crystals Negative HPF (Negative); Mucus Trace (Negative)
[2023-02-05] MEDS: Furosemide 20 MG/2 ML VIAL IVP (13:25)
[2023-02-05] MEDS: Fluconazole 100 MG TAB 200 MG PO (13:25)
--- NOTE | 2023-02-05 17:05 | W.PM.HP.N ---
Date of service: 02/05/23 Time of Service: 17:05 Assessment and Plan Assessment and plan (1) Acute hyponatremia: Status: Acute Assessment and plan: Sodium 127, NS @ 125 ml/h, furosemide IV, consider salt tablets 50 ml 3% saline bolus x 1 trend (2) Diabetes mellitus: Status: Chronic Assessment and plan: A1C of 6.2. Non-insulin dependent. Continue to hold metformin in house. SSI. Carb consistent diet. Qualifiers: Diabetes mellitus complication status: without complication Diabetes mellitus buttermaker continuous churn insulin use: without buttermaker continuous churn use Diabetes mellitus type: type 2 Qualified Code(s): E11.9 - Type 2 diabetes mellitus without complications (3) Interstitial lung disease: Assessment and plan: Followed by pulmonology; no shortness of breath, SPO2 > 90% lungs are clear (4) Neurogenic bladder: Status: Chronic Assessment and plan: S/p suprapubic catheter. In setting of fever, catheter was changed today and UA sent (5) Constipation: Status: Acute Assessment and plan: Schedule bowel regimen. Could be the trigger for hypertension. (6) DVT prophylaxis: Status: Resolved Assessment and plan: Enoxaparin (7) Discharge planning issues: Status: Resolved Assessment and plan: Continues to require hospitalization Anticipate discharge home with resumption of home health once medically stable Discussed with Dr Rosado History of Present Illness History of Present Illness Chief Complaint: Weak Narrative: This is a 82-year-old female patient with a history of quadriplegia, neurogenic bladder with suprapubic catheter, constipation, history of AAA, hyperlipidemia, recent pneumonia, recent UTI, breast CA, MOLLY, hyperlipidemia, diabetes and spinal stenosis who presented to the [facility] emergency department today with weakness and fever. She was recently discharged from the hospital after pneumonia and UTI and was discharged home on 5-day course of antibiotics which she completed. She denied pain, no stiff neck, headache, difficulty swallowing, sore throat, nausea, vomiting.? She was found to have a sodium of 127. She is admitted to the medical floor for hyponatremia, further testing and treatment. ? ? Review of Systems All systems reviewed & are unremarkable except as noted in HPI and below PFSH All Active Problems (Updated 02/05/23 @ 15:32 by KAJAL Mejia) Acute hyponatremia (Acute) Suprapubic catheter (Acute) Pleural thickening (Acute) Pleural effusion (Acute) Pressure ulcer (Acute) Advanced care planning/counseling discussion (Acute) Quadriplegia (Acute) Palliative care encounter (Acute) Constipation (Acute) Shortness of breath (Acute) Pneumonia (Acute) Acute UTI (Acute) Spinal stenosis, lumbar (Acute) Primary malignant neoplasm of breast (Acute) Neurogenic claudication (Acute) Hypothyroidism (Chronic) Hypertension (Chronic) Constipation due to neurogenic bowel (Acute) Benign neoplasm of colon (Acute) Autonomic dysreflexia (Acute) Arm edema (Acute) Nail dystrophy (Acute) UTI (urinary tract infection) (Acute) Transaminitis (Acute) Bladder spasm (Acute) COVID-19 ruled out (Acute) Neuropathic pain of finger of right hand (Acute) Fungal dermatitis (Acute) Chronic suprapubic catheter (Chronic) Hypomagnesemia (Acute) Acute UTI (Acute) Infiltrate of lung present on imaging of chest (Acute) UTI (urinary tract infection) (Acute) Hyperlipemia (Chronic) Intracranial aneurysm (Chronic) AAA (abdominal aortic aneurysm) (Chronic) Suprapubic catheter (Chronic) Diabetes mellitus (Chronic) Neurogenic bladder (Chronic) Paraplegia (Chronic) Medical History Cervical disc disorder CTS (carpal tunnel syndrome) left wrist ESBL (extended spectrum beta-lactamase) producing bacteria infection History of breast cancer Interstitial lung disease Pressure ulcer Surgical History H/O breast surgery H/O cervical spine surgery S/P cholecystectomy S/P rotator cuff repair S/P trigger finger release S/P tubal ligation Social History (Updated 01/23/23 @ 22:09 by Armen Parker) Smoking/Tobacco Use Status: Former Tobacco Use Quit Date: 08/17/06 Pack-years: 40 Smoking risk assessment performed?: Yes Alcohol Intake: never Drug use: Never Substance use type: does not use Current gender identity: female Do you feel safe at home: Yes Do you feel safe in your relationship?: Yes Additional Social history: lives with her in [place], [place]. Has home health. Meds Allergies and Home Medications Allergies Allergy/AdvReac Type Severity Reaction Status Date / Time ibuprofen AdvReac Mild Nausea Unverified 02/05/23 13:14 Home Medications Medication Instructions Recorded Confirmed Type aspirin 81 mg tablet,delayed 81 mg PO DAILY 06/23/18 02/05/23 History release atorvastatin 10 mg tablet 10 mg PO HS 06/23/18 02/05/23 History metformin 500 mg tablet 1,000 mg PO BID 06/23/18 02/05/23 History multivitamin 1 tab PO DAILY 06/23/18 02/05/23 History calcium carbonate 500 mg-vitamin 1 tab PO BID 06/16/19 02/05/23 History D3 10 mcg (400 unit) tablet (Calcium 500 With D) citric ac 1980.6 mg-glucono 59.4 30 ml irrigation DAILY 12/21/19 02/05/23 History mg-mag carb 980.4 mg/30 mL irrig.soln (Renacidin) baclofen 10 mg tablet 20 mg PO TID 06/24/22 02/05/23 History acetaminophen 500 mg tablet 1,000 mg PO TID PRN 08/25/22 02/05/23 History cyanocobalamin (vitamin B-12) 1,000 mcg PO DAILY 08/25/22 02/05/23 History 1,000 mcg capsule d-mannose 500 mg capsule (AZO 1,000 mg PO BID 08/25/22 02/05/23 History D-Mannose) gabapentin 400 mg capsule 400 mg PO BID 08/25/22 02/05/23 History (Neurontin) gabapentin 600 mg tablet 600 mg PO HS 08/25/22 02/05/23 History lidocaine 5 % topical cream 1 applic topical TID PRN 08/25/22 02/05/23 History magnesium oxide 400 mg PO BID 08/25/22 02/05/23 History levothyroxine 75 mcg tablet 75 mcg PO QAM 12/03/22 02/05/23 History omeprazole 20 mg tablet,delayed 20 mg PO DAILY 12/03/22 02/05/23 History release sennosides 8.6 mg tablet (senna) 8.6 mg PO QHS 12/03/22 02/05/23 History ondansetron 4 mg disintegrating 4 mg PO Q8H PRN #10 tabs 12/05/22 02/05/23 Rx tablet lisinopril 2.5 mg tablet 2.5 mg PO DAILY #30 tabs 01/31/23 02/05/23 Rx prednisone 20 mg tablet See Taper PO DAILY #20 tabs 01/31/23 02/05/23 Rx mirabegron 50 mg tablet,extended 50 mg PO DAILY 02/06/23 02/06/23 History release 24 hr (Myrbetriq) Exam Const General: cooperative and no acute distress Orientation: alert, awake and oriented x3 HENMT Head: normal to inspection Ears: hearing grossly normal bilaterally Face and sinus: normal facial exam Mouth: oral mucosae normal Eyes General: appearance normal, both eyes and all related structures Neck Neck: normal visual inspection and supple Resp Effort & Inspection: normal respiratory effort and able to speak in complete sentences Auscultation: clear to auscultation bilaterally Cardio Rate: regular rate Rhythm: regular rhythm Skin Lesions: other (pressure area on coccyx covered with mepilex, no drainage or erythema) Rashes: no rashes Neuro General: patient alert, patient awake and patient oriented x3 Cognition: normal cognition Speech: abnormal speech stuttering (baseline) Extrem Other: Atrophic appearing bilateral lower extremities. Contracted upper extremities Psych Appearance: grossly normal Mental Status: mental status grossly normal Speech and Movement: speech and movement normal Mood: congruent mood Affect: normal affect Results Labs 02/08/23 06:40 02/08/23 06:40 Labs: Laboratory Results - last 24 hr 02/05/23 02/05/23 02/05/23 08:21 09:03 09:03 WBC RBC Hgb Hct MCV MCH MCHC RDW Plt Count MPV Immature Gran % Neutrophils % Lymphocytes % Monocytes % Eosinophils % Basophils % Nucleated RBC % Absolute Neutrophils Absolute Lymphocytes Absolute Monocytes Absolute Eosinophils Absolute Basophils VBG Lactate 1.4 Sodium 127 L Potassium 4.6 Chloride 93 L Carbon Dioxide 26.1 Anion Gap 7.9 BUN 20 H Creatinine 0.7 Est GFR (CKD-EPI 2020) 86.30 Glucose 128 H Calcium 8.9 Magnesium Cancelled 1.8 Total Bilirubin 0.7 AST 26 ALT 52 Alkaline Phosphatase 43 L Troponin I < 50 Total Protein 7.0 Albumin 3.3 L Procalcitonin < 0.1 TSH 1.39 Urine Color Urine Clarity Urine pH Ur Specific [place] Urine Protein Urine Ketones Urine Blood Urine Nitrite Urine Bilirubin Urine Urobilinogen Ur Leukocyte Esterase Urine RBC Urine WBC Ur Epithelial Cells Urine Crystals Urine Bacteria Urine Casts Urine Mucus Urine Other Ur Culture Indicated? Urine Glucose COVID-19 Source SARS-CoV-2 (PCR) 02/05/23 02/05/23 02/05/23 09:03 09:03 09:25 WBC 11.18 H RBC 3.53 L Hgb 11.4 Hct 32.9 L MCV 93 MCH 32.3 MCHC 34.7 RDW 13.0 Plt Count 244 MPV 9.8 Immature Gran % 0.8 Neutrophils % 59.8 Lymphocytes % 32.6 Monocytes % 6.4 Eosinophils % 0.2 Basophils % 0.2 Nucleated RBC % 0.0 Absolute Neutrophils 6.69 Absolute Lymphocytes 3.64 H Absolute Monocytes 0.72 Absolute Eosinophils 0.02 Absolute Basophils 0.02 VBG Lactate Sodium Potassium Chloride Carbon Dioxide Anion Gap BUN Creatinine Est GFR (CKD-EPI 2020) Glucose Calcium Magnesium Total Bilirubin AST ALT Alkaline Phosphatase Troponin I Total Protein Albumin Procalcitonin TSH Cancelled Urine Color Cancelled Urine Clarity Cancelled Urine pH Cancelled Ur Specific [place] Cancelled Urine Protein Cancelled Urine Ketones Cancelled Urine Blood Cancelled Urine Nitrite Cancelled Urine Bilirubin Cancelled Urine Urobilinogen Cancelled Ur Leukocyte Esterase Cancelled Urine RBC Cancelled Urine WBC Cancelled Ur Epithelial Cells Cancelled Urine Crystals Cancelled Urine Bacteria Cancelled Urine Casts Cancelled Urine Mucus Cancelled Urine Other Cancelled Ur Culture Indicated? Cancelled Urine Glucose Cancelled COVID-19 Source SARS-CoV-2 (PCR) 02/05/23 02/05/23 02/05/23 09:37 09:46 12:30 WBC RBC Hgb Hct MCV MCH MCHC RDW Plt Count MPV Immature Gran % Neutrophils % Lymphocytes % Monocytes % Eosinophils % Basophils % Nucleated RBC % Absolute Neutrophils Absolute Lymphocytes Absolute Monocytes Absolute Eosinophils Absolute Basophils VBG Lactate Sodium Potassium Chloride Carbon Dioxide Anion Gap BUN Creatinine Est GFR (CKD-EPI 2020) Glucose Calcium Magnesium Total Bilirubin AST ALT Alkaline Phosphatase Troponin I Cancelled < 50 Total Protein Albumin Procalcitonin TSH Urine Color Urine Clarity Urine pH Ur Specific [place] Urine Protein Urine Ketones Urine Blood Urine Nitrite Urine Bilirubin Urine Urobilinogen Ur Leukocyte Esterase Urine RBC Urine WBC Ur Epithelial Cells Urine Crystals Urine Bacteria Urine Casts Urine Mucus Urine Other Ur Culture Indicated? Urine Glucose COVID-19 Source Nasal/Nares SARS-CoV-2 (PCR) Negative 02/05/23 12:30 WBC RBC Hgb Hct MCV MCH MCHC RDW Plt Count MPV Immature Gran % Neutrophils % Lymphocytes % Monocytes % Eosinophils % Basophils % Nucleated RBC % Absolute Neutrophils Absolute Lymphocytes Absolute Monocytes Absolute Eosinophils Absolute Basophils VBG Lactate Sodium Potassium Chloride Carbon Dioxide Anion Gap BUN Creatinine Est GFR (CKD-EPI 2020) Glucose Calcium Magnesium Total Bilirubin AST ALT Alkaline Phosphatase Troponin I Total Protein Albumin Procalcitonin TSH Urine Color Yellow Urine Clarity Sl Cloudy Urine pH 6.5 Ur Specific [place] 1.010 Urine Protein 30 H Urine Ketones Negative Urine Blood Small H Urine Nitrite Negative Urine Bilirubin Negative Urine Urobilinogen 0.2 Ur Leukocyte Esterase Moderate H Urine RBC 5-10 H Urine WBC 10-20 H Ur Epithelial Cells Rare Urine Crystals Negative Urine Bacteria Few Urine Casts Negative Urine Mucus Trace Urine Other Few Yeast Ur Culture Indicated? Yes Urine Glucose Negative COVID-19 Source SARS-CoV-2 (PCR) Last Vital Signs Temp 36.4 C L 02/05/23 14:15 Pulse 76 02/05/23 14:15 Resp 18 02/05/23 14:15 BP 145/75 H 02/05/23 14:15 Pulse Ox 96 02/05/23 14:15 Time Spent Time spent with Patient: 40-54 minutes Time was spent: preparing to see the patient(eg.review tests), obtaining and/or reviewing separately otained hiistory, ordering medications,tests, procedures, referring, communicating with other health palliative care nurse, indepentently interpreting results and counseling the patient
[2023-02-05 17:39] LABS: Anion Gap 7.2 mmol/L (3-11); BUN 19 mg/dL (7-18); CO2 27.8 mmol/L (21.0-32.0); CREATININE 0.7 mg/dL (0.55-1.02); Calcium 8.9 mg/dL (8.5-10.1); Chloride 93 mmol/L (98-107); Glucose 112 mg/dL (74-106); Sodium 128 mmol/L (136-145)
[2023-02-05] MEDS: Acetaminophen 325 MG TAB PO (17:50)
[2023-02-05] MEDS: Baclofen 10 MG TAB 20 MG PO (19:20)
[2023-02-05] MEDS: Magnesium Oxide 400 MG TAB PO (19:21)
[2023-02-05] MEDS: Calcium 600mg/Vit D 200U TAB 1 TAB PO (19:21)
[2023-02-05] MEDS: Furosemide 40 MG/4 ML VIAL IVP (19:21)
[2023-02-05] MEDS: Gabapentin 400 MG CAP PO (19:21)
[2023-02-05] MEDS: SODIUM CHLORIDE 3% 500 ML 50 ML IV (20:05)
[2023-02-05] MEDS: PIPERACILLIN/TAZO 3.375 GM in Normal Saline 50 ML IVPB (20:18)
[2023-02-05] MEDS: Gabapentin 600 MG TAB PO (21:56)
[2023-02-05] MEDS: Senna TAB 1 TAB PO (21:56)
[2023-02-05] MEDS: Atorvastatin 10 MG TAB PO (21:57)
[2023-02-06] MEDS: PIPERACILLIN/TAZO 3.375 GM in Normal Saline 50 ML IVPB ×3 (04:50→21:23)
[2023-02-06] MEDS: Normal Saline 1,000 ML 125 ML IV (05:00)
[2023-02-06] MEDS: Levothyroxine 75 MCG TAB PO (06:13)
[2023-02-06 07:23] LABS: ALT 58 U/L (14-59); AST 53 U/L (15-37); Albumin 3.1 g/dL (3.4-5.0); Alkaline Phosphatase 40 U/L (46-116); Anion Gap 7.8 mmol/L (3-11); BUN 21 mg/dL (7-18); CO2 26.2 mmol/L (21.0-32.0); CREATININE 0.7 mg/dL (0.55-1.02); Calcium 8.5 mg/dL (8.5-10.1); Chloride 94 mmol/L (98-107); Glucose 122 mg/dL (74-106); Magnesium 1.7 mg/dL (1.8-2.4); Potassium 4.6 mmol/L (3.5-5.1); Sodium 128 mmol/L (136-145); Total Protein 6.5 g/dL (6.4-8.2)
[2023-02-06 07:25] VITALS: BP 111/63; PULSE 75; TEMP 37.4; O2SAT 95
[2023-02-06] MEDS: Cyanocobalamin 500 MCG TAB 1000 MCG PO (07:41)
[2023-02-06] MEDS: Magnesium Oxide 400 MG TAB PO ×2 (07:42→20:05)
[2023-02-06] MEDS: Baclofen 10 MG TAB 20 MG PO ×3 (07:42→20:05)
[2023-02-06] MEDS: Mirabegron 25 MG TABCR 50 MG PO (07:42)
[2023-02-06] MEDS: Omeprazole 20 MG CAPCR PO (07:42)
[2023-02-06] MEDS: Multivitamin TAB 1 TAB PO (07:42)
[2023-02-06] MEDS: Calcium 600mg/Vit D 200U TAB 1 TAB PO ×2 (07:42→20:05)
[2023-02-06] MEDS: Gabapentin 400 MG CAP PO (07:42)
[2023-02-06] MEDS: Aspirin E.C. 81 MG TABEC PO (07:42)
[2023-02-06] MEDS: Lisinopril 2.5 MG TAB PO (07:42)
[2023-02-06 08:34] LABS: Abs Immature Grans 0.09 10^3/uL (0.0-0.06); Absolute Basophil Count 0.06 10^3/uL (0.0-0.2); Absolute Eosinophil Count 0.17 10^3/uL (0.0-0.7); Absolute Lymphocyte Count 3.49 10^3/uL (1.2-3.4); Absolute Monocyte Count 0.67 10^3/uL (0.1-0.8); Basophils % 0.5; Eosinophils % 1.5; HCT 32.3 % (36.0-46.0); HGB 10.9 g/dL (11.2-15.7); Immature Grans % 0.8; Lymphocytes % 31.6; MCH 32.4 pg (27.0-33.0); MCHC 33.7 % (32.0-36.0); MCV 96 fL (80-95); Monocytes % 6.1; Neutrophils % 59.5; Platelet Count 160 10^3/uL (130-400); RBC 3.36 10^6/uL (3.93-5.22); RDW 13.5 % (11.7-14.6); RDW-SD 47.6 fL; WBC 11.03 10^3/uL (4.4-10.8)
[2023-02-06 08:35] LABS: Absolute Neutrophil Count 6.56 10^3/uL (1.2-6.7)
[2023-02-06] MEDS: SODIUM CHLORIDE 3% 50 ML IV (09:52)
--- NOTE | 2023-02-06 10:11 | NUR.NOTE ---
Nursing Note: Accessed pt chart to determine EKG orders. There was a duplicate and it was cancelled.
[2023-02-06] MEDS: MAGNESIUM SULFATE 2 GM/50 ML BAG IVPB (11:14)
[2023-02-06] MEDS: Furosemide 40 MG/4 ML VIAL IVP (11:57)
--- NOTE | 2023-02-06 14:42 | INITIAL_ITS ---
Date of service: 02/06/23 Time of Service: 14:42 Care Management Initial Assmt Initial Assessment REASON FOR HOSPITALIZATION:: Hyponatremia PREVIOUS FUNCTIONAL STATUS/SOCIAL/FAMILY SUPPORTS:: Gerardo lives in [place] with her . Their six children live nearby and are supportive of the couple. 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 Family provides most of her care with support from Home Health. ADVANCE DIRECTIVES:: Not on file but patient has previously reported having an Advance Directives with daughter appointed as HCA. Has patient been provided with info about the portal/API?: No Did the patient sign up for the portal?: No CODE STATUS:: Full Code INSURANCE COVERAGE / FINANCIAL ISSUES:: [employer] Medicare Supplement, [place], [place], [place] CURRENT HOME/COMMUNITY SERVICES/EQUIPMENT:: Kv[employer] lift, hospital bed, wheelchair , ramps, and shower chair. Family provides most of her care with Home Health nursing support. PRIMARY CARE PHYSICIAN:: Nida Farooq POTENTIAL DISCHARGE NEEDS:: Follow up appointment with PCP, resumption of HH services and coordination of transport home. PATIENT/FAMILY EDUCATION NEEDS:: Review of discharge instructions and discuss Ask Me Three. ANTICIPATED BARRIERS TO DISCHARGE:: None identified at this time. TRANSPORTATION:: Via ambulance coordinated by CM. PLAN:: Gerardo will be discharged home with a resumption of Home Health services when medically cleared by provider. She will follow up with her PCP and plan of care as instructed following discharge. She will be transported home by ambulance coordinated by CM when ready. CM will continue to support patient and discharge planning needs. PFSH All Active Problems (Updated 02/05/23 @ 15:32 by KAJAL Mejia) Acute hyponatremia (Acute) Suprapubic catheter (Acute) Pleural thickening (Acute) Pleural effusion (Acute) Pressure ulcer (Acute) Advanced care planning/counseling discussion (Acute) Quadriplegia (Acute) Palliative care encounter (Acute) Constipation (Acute) Shortness of breath (Acute) Pneumonia (Acute) Acute UTI (Acute) Spinal stenosis, lumbar (Acute) Primary malignant neoplasm of breast (Acute) Neurogenic claudication (Acute) Hypothyroidism (Chronic) Hypertension (Chronic) Constipation due to neurogenic bowel (Acute) Benign neoplasm of colon (Acute) Autonomic dysreflexia (Acute) Arm edema (Acute) Nail dystrophy (Acute) UTI (urinary tract infection) (Acute) Transaminitis (Acute) Bladder spasm (Acute) COVID-19 ruled out (Acute) Neuropathic pain of finger of right hand (Acute) Fungal dermatitis (Acute) Chronic suprapubic catheter (Chronic) Hypomagnesemia (Acute) Acute UTI (Acute) Infiltrate of lung present on imaging of chest (Acute) UTI (urinary tract infection) (Acute) Hyperlipemia (Chronic) Intracranial aneurysm (Chronic) AAA (abdominal aortic aneurysm) (Chronic) Suprapubic catheter (Chronic) Diabetes mellitus (Chronic) Neurogenic bladder (Chronic) Paraplegia (Chronic) Medical History Cervical disc disorder CTS (carpal tunnel syndrome) left wrist ESBL (extended spectrum beta-lactamase) producing bacteria infection History of breast cancer Interstitial lung disease Pressure ulcer Surgical History H/O breast surgery H/O cervical spine surgery S/P cholecystectomy S/P rotator cuff repair S/P trigger finger release S/P tubal ligation Social History (Updated 01/23/23 @ 22:09 by Armen Parker) Smoking/Tobacco Use Status: Former Tobacco Use Quit Date: 08/17/06 Pack-years: 40 Smoking risk assessment performed?: Yes Alcohol Intake: never Drug use: Never Substance use type: does not use Current gender identity: female Do you feel safe at home: Yes Do you feel safe in your relationship?: Yes Additional Social history: lives with her in [place], [place]. Has home health.
[2023-02-06 15:23] VITALS: BP 106/64; PULSE 81; TEMP 37.4; O2SAT 95
--- NOTE | 2023-02-06 16:18 | PHA.REVIEW2 ---
Pharmacy Admission Review Admission Clinical Review Admission Pharmacy Review: (Updated 02/05/23 @ 15:32 by KAJAL Mejia) Acute hyponatremia (Acute) Suprapubic catheter (Acute) Quadriplegia (Acute) Constipation (Acute) Acute UTI (Acute) ibuprofen Adverse Reaction (Mild, Unverified 02/05/23 13:14) Nausea Resuscitation Status Full Code Height 5 ft 4 in Weight 70.3 kg Comments Comments/Follow Ups: Re-admission from last visit 01/31/23, previously treated for Pneumonia and UTI. Presents with fever, hyponatremia. Currently Afebrile. Follow electrolytes, Blood and urine cultures Pharmacy Admission Review Renal Dosing Renal Dosing: CrCl~41.73 ml/min BUN 21 mg/dL (7-18) H 02/06/23 06:10 Creatinine 0.7 mg/dL (0.55-1.02) 02/06/23 06:10 Medications needing adjustments: Reviewed (Zosyn extended infusion already adjusted to q8h) List of meds needing interventions: Gabapentin should not exceed 900mg/day (Currently 1200mg), suggested 300mg po TID Anticoagulation Anticoagulation: Hgb 10.9 g/dL (11.2-15.7) L 02/06/23 07:35 Hct 32.3 % (36.0-46.0) L 02/06/23 07:35 Plt Count 160 10^3/uL (130-400) 02/06/23 07:35 Creatinine 0.7 mg/dL (0.55-1.02) 02/06/23 06:10 DVT Prophylaxis: Reviewed Medications: Enoxaparin Relevant Labs Relevant Labs: Getting 50ml Hypertonic saline bolus' (rec'd 50ml x 2) to date Mag Ox ordered and 2 gram IV bolus Sodium 128 mmol/L (136-145) L 02/06/23 06:10 Potassium 4.6 mmol/L (3.5-5.1) 02/06/23 06:10 Chloride 94 mmol/L (98-107) L 02/06/23 06:10 Magnesium 1.7 mg/dL (1.8-2.4) L 02/06/23 06:10 DM Control DM Control: BG 100-122 Insulin Dosing: Reviewed (Aspart scale) Cardiac Review Cardiac Review: Troponin I < 50 ng/L (<or=60) 02/05/23 12:30 Home Meds Home Med List reviewed: Reviewed (Myrbetriq dose was increased to 50mg daily on last admission) Relevent Home Meds Not ordered & why?: Metformin-held during admission, has Aspart scale Current Meds Current Medication Order Review: Reviewed (Patient's own Azo D-Mannose, likely not needed on this admission) Pharmacy Antibiotic Review Pharmacy Antibiotic Activity: C/S review (Urine culture Gram positive >100k, Blood cultures negative x24h) Comments: Zosyn for UTI Comments Comments/Follow Ups: Re-admission from last visit 01/31/23, previously treated for Pneumonia and UTI. Presents with fever, hyponatremia. Currently Afebrile. Follow electrolytes, Blood and urine cultures
--- NOTE | 2023-02-06 18:19 | W.PM.PROGNOT ---
Date of Service Date of service: 02/06/23 Time of Service: 18:19 Assessment and Plan Assessment and plan (1) Acute hyponatremia: Status: Acute Assessment and plan: Sodium 128, NS @ 125 ml/h, furosemide IV, added salt tablets repeated 50 ml 3% saline bolus x 1 trend Repeat BMP @ 1900 (2) Diabetes mellitus: Status: Chronic Assessment and plan: A1C of 6.2. Non-insulin dependent. Continue to hold metformin in house. SSI. Carb consistent diet. Qualifiers: Diabetes mellitus type: type 2 Diabetes mellitus assisted insulin use: without watermelon harvesting supervisor use Diabetes mellitus complication status: without complication Qualified Code(s): E11.9 - Type 2 diabetes mellitus without complications (3) Interstitial lung disease: Assessment and plan: Followed by pulmonology; no shortness of breath, SPO2 > 90% lungs are clear (4) Neurogenic bladder: Status: Chronic Assessment and plan: S/p suprapubic catheter. In setting of fever, catheter was changed UA positive, cx pending - Zosyn continued (5) Constipation: Status: Acute Assessment and plan: Schedule bowel regimen. She does enemas at home daily, fleets ordered, daily (6) DVT prophylaxis: Status: Resolved Assessment and plan: Enoxaparin (7) Discharge planning issues: Status: Resolved Assessment and plan: Continues to require hospitalization Anticipate discharge home with resumption of home health once medically stable Discussed with Dr Rosado Subjective Subjective Patient reports: no new complaints, feels better, tolerating a regular diet, bowel movement and afebrile; denies diarrhea, nausea or vomiting Exam Const General: cooperative and no acute distress Orientation: alert, awake and oriented x3 [facility] Head: normal to inspection Ears: hearing grossly normal bilaterally Face and sinus: normal facial exam Mouth: oral mucosae normal Eyes General: appearance normal, both eyes and all related structures Neck Neck: normal visual inspection and supple Resp Effort & Inspection: normal respiratory effort and able to speak in complete sentences Auscultation: clear to auscultation bilaterally Cardio Rate: regular rate Rhythm: regular rhythm Skin Lesions: other (pressure area on coccyx covered with mepilex, no drainage or erythema) Rashes: no rashes Neuro General: patient alert, patient awake and patient oriented x3 Cognition: normal cognition Speech: abnormal speech stuttering (baseline) Extrem Other: Atrophic appearing bilateral lower extremities. Contracted upper extremities Psych Appearance: grossly normal Mental Status: mental status grossly normal Speech and Movement: speech and movement normal Mood: congruent mood Affect: normal affect Objective Last Vital Signs Temp 37.4 C 02/06/23 15:23 Pulse 81 02/06/23 15:23 Resp 16 02/05/23 22:45 BP 106/64 02/06/23 15:23 Pulse Ox 95 02/06/23 15:23 Laboratory Results - last 24 hr 02/06/23 02/06/23 02/06/23 06:10 06:10 07:35 WBC Cancelled 11.03 H RBC Cancelled 3.36 L Hgb Cancelled 10.9 L Hct Cancelled 32.3 L MCV Cancelled 96 H MCH Cancelled 32.4 MCHC Cancelled 33.7 RDW Cancelled 13.5 Plt Count Cancelled 160 MPV Cancelled 10.0 Immature Gran % Cancelled 0.8 Neutrophils % Cancelled 59.5 Band Neutrophils % Cancelled Lymphocytes % Cancelled 31.6 Atypical Lymphs % Cancelled Monocytes % Cancelled 6.1 Eosinophils % Cancelled 1.5 Basophils % Cancelled 0.5 Metamyelocytes % Cancelled Myelocytes % Cancelled Promyelocytes % Cancelled Other Cells % Cancelled Nucleated RBC % Cancelled 0.0 Absolute Neutrophils Cancelled 6.56 Absolute Lymphocytes Cancelled 3.49 H Absolute Monocytes Cancelled 0.67 Absolute Eosinophils Cancelled 0.17 Absolute Basophils Cancelled 0.06 RBC Morphology Cancelled Polychromasia Cancelled Hypochromasia Cancelled Poikilocytosis Cancelled Basophilic Stippling Cancelled Anisocytosis Cancelled Microcytosis Cancelled Macrocytosis Cancelled Spherocytes Cancelled Tear Drop Cells Cancelled Ovalocytes Cancelled Stomatocytes Cancelled [place] Bodies Cancelled [place]ira Cells/Echinocytes Cancelled Acanthocytes (Spur) Cancelled Schistocytes Cancelled Sodium 128 L Potassium 4.6 Chloride 94 L Carbon Dioxide 26.2 Anion Gap 7.8 BUN 21 H Creatinine 0.7 Est GFR (CKD-EPI 2020) 86.30 Glucose 122 H Calcium 8.5 Magnesium 1.7 L Total Bilirubin 1.0 AST 53 H ALT 58 Alkaline Phosphatase 40 L Total Protein 6.5 Albumin 3.1 L Time Spent with Patient Time Spent with Patient: 35-49 minutes Time was spent: preparing to see the patient(eg.review tests), ordering medications,tests, procedures, referring, communicating with other health care program resident, indepentently interpreting results and counseling the patient
[2023-02-06 19:41] LABS: Anion Gap 7.6 mmol/L (3-11); BUN 21 mg/dL (7-18); CO2 26.4 mmol/L (21.0-32.0); CREATININE 0.8 mg/dL (0.55-1.02); Calcium 7.1 mg/dL (8.5-10.1); Chloride 100 mmol/L (98-107); Estimated GFR 73.52 (mL/min/1.73m2); Glucose 119 mg/dL (74-106); Potassium 3.3 mmol/L (3.5-5.1); Sodium 134 mmol/L (136-145)
[2023-02-06] MEDS: Salt Supplement (BUFFERED) TAB 1 TAB PO (20:05)
[2023-02-06 21:31] VITALS: BP 102/58; PULSE 76; RESP 20; TEMP 37.7; O2SAT 93
[2023-02-06] MEDS: Atorvastatin 10 MG TAB PO (21:42)
[2023-02-06] MEDS: Gabapentin 600 MG TAB PO (21:42)
[2023-02-06] MEDS: Senna TAB 1 TAB PO (21:43)
[2023-02-07 00:01] VITALS: TEMP 36.9
[2023-02-07 03:49] VITALS: BP 103/55; PULSE 75; RESP 20; TEMP 37.3; O2SAT 94
[2023-02-07] MEDS: Levothyroxine 75 MCG TAB PO (05:53)
[2023-02-07 06:51] VITALS: BP 105/50; PULSE 70; RESP 20; TEMP 37; O2SAT 95
[2023-02-07] MEDS: PIPERACILLIN/TAZO 3.375 GM in Normal Saline 50 ML IVPB (07:34)
[2023-02-07 07:39] LABS: Abs Immature Grans 0.04 10^3/uL (0.0-0.06); Absolute Basophil Count 0.07 10^3/uL (0.0-0.2); Absolute Eosinophil Count 0.18 10^3/uL (0.0-0.7); Absolute Lymphocyte Count 2.43 10^3/uL (1.2-3.4); Absolute Monocyte Count 0.55 10^3/uL (0.1-0.8); Absolute Neutrophil Count 6.29 10^3/uL (1.2-6.7); Basophils % 0.7; Eosinophils % 1.9; HCT 32.7 % (36.0-46.0); HGB 10.7 g/dL (11.2-15.7); Immature Grans % 0.4; Lymphocytes % 25.4; MCH 32.1 pg (27.0-33.0); MCHC 32.7 % (32.0-36.0); MCV 98 fL (80-95); MPV 10.2 fL (8.0-11.0); Monocytes % 5.8; Neutrophils % 65.8; Platelet Count 187 10^3/uL (130-400); RBC 3.33 10^6/uL (3.93-5.22); RDW 13.6 % (11.7-14.6); RDW-SD 49.1 fL; WBC 9.56 10^3/uL (4.4-10.8)
[2023-02-07 07:50] LABS: Anion Gap 8.7 mmol/L (3-11); BUN 21 mg/dL (7-18); CO2 25.3 mmol/L (21.0-32.0); CREATININE 0.8 mg/dL (0.55-1.02); Calcium 7.8 mg/dL (8.5-10.1); Chloride 100 mmol/L (98-107); Estimated GFR 73.52 (mL/min/1.73m2); Glucose 143 mg/dL (74-106); Magnesium 1.9 mg/dL (1.8-2.4); Potassium 3.7 mmol/L (3.5-5.1); Sodium 134 mmol/L (136-145)
[2023-02-07] MEDS: Mirabegron 50 MG TABCR PO (08:19)
[2023-02-07] MEDS: Magnesium Oxide 400 MG TAB PO ×2 (08:19→19:42)
[2023-02-07] MEDS: Cyanocobalamin 500 MCG TAB 1000 MCG PO (08:19)
[2023-02-07] MEDS: Calcium 600mg/Vit D 200U TAB 1 TAB PO ×2 (08:19→19:41)
[2023-02-07] MEDS: Lisinopril 2.5 MG TAB PO (08:19)
[2023-02-07] MEDS: Multivitamin TAB 1 TAB PO (08:20)
[2023-02-07] MEDS: Salt Supplement (BUFFERED) TAB 1 TAB PO ×2 (08:20→19:42)
[2023-02-07] MEDS: Aspirin E.C. 81 MG TABEC PO (08:20)
[2023-02-07] MEDS: Gabapentin 400 MG CAP PO ×2 (08:20→12:31)
[2023-02-07] MEDS: Baclofen 10 MG TAB 20 MG PO ×3 (08:20→19:42)
[2023-02-07] MEDS: Omeprazole 20 MG CAPCR PO (08:27)
[2023-02-07] MEDS: Normal Saline Flush 10 ML SYR IVP ×2 (10:20→12:34)
[2023-02-07] MEDS: FLUCONAZOLE 200 MG/100 ML BAG 100 MG IVPB (10:21)
[2023-02-07] MEDS: Normal Saline 500 ML 100 ML IV (10:21)
[2023-02-07 11:18] VITALS: BP 131/66; PULSE 76; RESP 20; TEMP 37.4; O2SAT 94
[2023-02-07] MEDS: Enoxaparin 40 MG/0.4 ML SYR SC (13:26)
[2023-02-07 15:28] VITALS: BP 107/58; PULSE 72; RESP 20; TEMP 37.1; O2SAT 92
--- NOTE | 2023-02-07 18:30 | PGE_ITS ---
Date of Service Date of service: 02/07/23 Time of Service: 18:30 Assessment and Plan Assessment and plan (1) Acute hyponatremia: Status: Acute Assessment and plan: Sodium 134, continue salt tablets trend (2) Diabetes mellitus: Status: Chronic Assessment and plan: A1C of 6.2. Non-insulin dependent. Continue to hold metformin in house. SSI. Carb consistent diet. 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 In setting of fever, catheter was changed UA positive, cx pending - Zosyn discontinued; >100,000 yeast, diflucan IV, then 200 mg oral daily for 14 d (5) Constipation: Status: Acute Assessment and plan: Schedule bowel regimen. She does enemas at home daily, fleets ordered, daily (6) DVT prophylaxis: Status: Resolved Assessment and plan: Enoxaparin (7) Discharge planning issues: Status: Resolved Assessment and plan: Continues to require hospitalization Anticipate discharge home with resumption of home health once medically stable Discussed with Dr Rosado Subjective Subjective Patient reports: no new complaints and afebrile; denies vomiting Interval history since last seen: Gerardo states she is feeling stronger, plan to to home Thursday Exam Const General: cooperative and no acute distress Orientation: alert, awake and oriented x3 [facility] Head: normal to inspection Ears: hearing grossly normal bilaterally Face and sinus: normal facial exam Mouth: oral mucosae normal Eyes General: appearance normal, both eyes and all related structures Neck Neck: normal visual inspection and supple Resp Effort & Inspection: normal respiratory effort and able to speak in complete sentences Auscultation: clear to auscultation bilaterally Cardio Rate: regular rate Rhythm: regular rhythm Skin Lesions: other (pressure area on coccyx covered with mepilex, no drainage or erythema) Rashes: no rashes Neuro General: patient alert, patient awake and patient oriented x3 Cognition: normal cognition Speech: abnormal speech stuttering (baseline) Extrem Other: Atrophic appearing bilateral lower extremities. Contracted upper extremities Psych Appearance: grossly normal Mental Status: mental status grossly normal Speech and Movement: speech and movement normal Mood: congruent mood Affect: normal affect Objective Last Vital Signs Temp 37.1 C 02/07/23 15:28 Pulse 72 02/07/23 15:28 Resp 20 02/07/23 15:28 BP 107/58 L 02/07/23 15:28 Pulse Ox 92 02/07/23 15:28 Laboratory Results - last 24 hr 02/06/23 02/07/23 02/07/23 19:25 06:47 06:47 WBC 9.56 RBC 3.33 L Hgb 10.7 L Hct 32.7 L MCV 98 H MCH 32.1 MCHC 32.7 RDW 13.6 Plt Count 187 MPV 10.2 Immature Gran % 0.4 Neutrophils % 65.8 Lymphocytes % 25.4 Monocytes % 5.8 Eosinophils % 1.9 Basophils % 0.7 Nucleated RBC % 0.0 Absolute Neutrophils 6.29 Absolute Lymphocytes 2.43 Absolute Monocytes 0.55 Absolute Eosinophils 0.18 Absolute Basophils 0.07 Sodium 134 L 134 L Potassium 3.3 L D 3.7 Chloride 100 100 Carbon Dioxide 26.4 25.3 Anion Gap 7.6 8.7 BUN 21 H 21 H Creatinine 0.8 0.8 Est GFR (CKD-EPI 2020) 73.52 73.52 Glucose 119 H 143 H Calcium 7.1 L 7.8 L Magnesium 1.9 Time Spent with Patient Time Spent with Patient: 35-49 minutes Time was spent: preparing to see the patient(eg.review tests), ordering medications,tests, procedures, referring, communicating with other health family day care worker, indepentently interpreting results, counseling the patient and care coordination
[2023-02-07 19:14] VITALS: BP 107/58; PULSE 64; RESP 18; TEMP 37; O2SAT 92
[2023-02-07] MEDS: Insulin Aspart 300 UNITS/3 ML PEN SC (21:04)
[2023-02-07] MEDS: Atorvastatin 10 MG TAB PO (21:50)
[2023-02-07] MEDS: Senna TAB 1 TAB PO (21:50)
[2023-02-07] MEDS: Gabapentin 600 MG TAB PO (21:50)
[2023-02-08] VITALS (11 sets, daily range): BP systolic 103–152; BP diastolic 58–70; PULSE 72–82; RESP 16–20; TEMP 36.7–38.7; O2SAT 92–95
--- NOTE | 2023-02-08 | DI.RAD_ITS ---
Exam(s) XR PORTABLE CHEST AP EXAM: XR PORTABLE CHEST AP CLINICAL HISTORY: Fever TECHNIQUE: 2D digital imaging was performed of the chest. One image was obtained. An AP view was ob tained. COMPARISON: CR XR PORTABLE CHEST AP from 02/05/2023 FINDINGS: MEDIASTINUM: Normal. HEART: Cardiomegaly. PULMONARY VASCULATURE: Normal. Atherosclerosis. LUNGS: There are no focal consolidating infiltrates. There are stable interstitial findings in the l ungs particularly on the left. PLEURAL SPACE: No pleural effusion or pneumothorax. BONE:Within normal limits for the patient's age. Postsurgical changes in the lower cervical spine. OTHER FINDINGS:Normal. IMPRESSION: Overall stable appearance of the chest since 02/05/2023. Mild increased interstitial markings particu larly on the left. Chronic versus acute. Please correlate clinically. No focal consolidating infil trates. DATA REPOSITORY: RADIATION DOSE DELIVERED:
[2023-02-08] MEDS: Levothyroxine 75 MCG TAB PO (06:14)
[2023-02-08] MEDS: Acetaminophen 325 MG TAB PO ×3 (06:42→16:30)
[2023-02-08 07:05] LABS: Abs Immature Grans 0.04 10^3/uL (0.0-0.06); Absolute Basophil Count 0.05 10^3/uL (0.0-0.2); Absolute Lymphocyte Count 2.14 10^3/uL (1.2-3.4); Absolute Monocyte Count 0.37 10^3/uL (0.1-0.8); Absolute Neutrophil Count 4.67 10^3/uL (1.2-6.7); Basophils % 0.7; Eosinophils % 2.7; HCT 31.6 % (36.0-46.0); HGB 10.4 g/dL (11.2-15.7); Immature Grans % 0.5; Lymphocytes % 28.6; MCH 32.3 pg (27.0-33.0); MCHC 32.9 % (32.0-36.0); MCV 98 fL (80-95); MPV 9.9 fL (8.0-11.0); Neutrophils % 62.5; Platelet Count 188 10^3/uL (130-400); RBC 3.22 10^6/uL (3.93-5.22); RDW 13.2 % (11.7-14.6); RDW-SD 47.5 fL; WBC 7.47 10^3/uL (4.4-10.8)
[2023-02-08 07:30] LABS: Anion Gap 8.2 mmol/L (3-11); BUN 16 mg/dL (7-18); CO2 24.8 mmol/L (21.0-32.0); CREATININE 0.7 mg/dL (0.55-1.02); Calcium 8.2 mg/dL (8.5-10.1); Chloride 102 mmol/L (98-107); Glucose 129 mg/dL (74-106); Magnesium 1.9 mg/dL (1.8-2.4); Potassium 4.2 mmol/L (3.5-5.1); Sodium 135 mmol/L (136-145)
[2023-02-08] MEDS: Aspirin E.C. 81 MG TABEC PO (08:06)
[2023-02-08] MEDS: Baclofen 10 MG TAB 20 MG PO ×3 (08:06→19:49)
[2023-02-08] MEDS: Magnesium Oxide 400 MG TAB PO ×2 (08:07→19:50)
[2023-02-08] MEDS: Multivitamin TAB 1 TAB PO (08:07)
[2023-02-08] MEDS: Salt Supplement (BUFFERED) TAB 1 TAB PO ×2 (08:07→19:50)
[2023-02-08] MEDS: Cyanocobalamin 500 MCG TAB 1000 MCG PO (08:07)
[2023-02-08] MEDS: Mirabegron 50 MG TABCR PO (08:07)
[2023-02-08] MEDS: Gabapentin 400 MG CAP PO ×2 (08:07→11:37)
[2023-02-08] MEDS: Omeprazole 20 MG CAPCR PO (08:07)
[2023-02-08] MEDS: Calcium 600mg/Vit D 200U TAB 1 TAB PO ×2 (08:07→19:50)
[2023-02-08] MEDS: Lisinopril 2.5 MG TAB PO (08:08)
--- NOTE | 2023-02-08 10:32 | NUR.NOTE ---
Nursing Note: At approximately 1030 on 02/08/23, this RN answered a call from Bandar Winternier (pt.'s ; on HIPAA). RN updated pt.'s regarding how the pt. is doing and what the plan of care is (including the most recent discharge plan). Pt.'s verbalizing concern regarding the pt. being discharged to home today (02/08/23), stating that he wants to make sure that all the necessary resources are set in place. Pt.'s also verbalizing concern regarding whether or not the pt. is to continue on her prednisone once she gets home. RN informed the pt.'s that the pt. would be discharged home with a medication list stating which medications to start, continue, and stop. RN informed the pt.'s that they would notify the charge nurse of his concerns, so that they could notify the provider of his concerns. Pt.'s verbalized understanding and then thanked the RN. Call then ended.
[2023-02-08] MEDS: Insulin Aspart 300 UNITS/3 ML PEN SC (11:38)
[2023-02-08] MEDS: Enoxaparin 40 MG/0.4 ML SYR SC (13:28)
--- NOTE | 2023-02-08 13:50 | W.PM.PROGNOT ---
Date of Service Date of service: 02/08/23 Time of Service: 13:51 Assessment and Plan Assessment and plan (1) Acute hyponatremia: Status: Acute Assessment and plan: Sodium 135, continue salt tablets trend (2) Fever: Start date: 02/08/23 Status: Acute Assessment and plan: Urine cx - yeast, continue diflucan Fever unknown source - BC, CXR, procal, lactate, cbc Tylenol Ceftriaxone 2 gm IV (3) Diabetes mellitus: Status: Chronic Assessment and plan: A1C of 6.2. Non-insulin dependent. Continue to hold metformin in house. SSI. Carb consistent diet. 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 In setting of fever, catheter was changed Continue diflucan 200 mg oral daily for 14 d this is day 2 (6) Constipation: Status: Acute Assessment and plan: Schedule bowel regimen. She does enemas at home daily, fleets ordered, daily (7) DVT prophylaxis: Status: Resolved Assessment and plan: Enoxaparin (8) Discharge planning issues: Status: Resolved Assessment and plan: Continues to require hospitalization; fever today Anticipate discharge home with resumption of home health once medically stable Discussed with Dr Rosado Subjective Subjective Patient reports: no new complaints, tolerating a regular diet, bowel movement and fever; denies diarrhea, nausea or vomiting Interval history since last seen: Family in, she is eating well. She continues to have sl temp. Exam Const General: cooperative and no acute distress Orientation: alert, awake and oriented x3 HENMT Head: normal to inspection Ears: hearing grossly normal bilaterally Face and sinus: normal facial exam Mouth: oral mucosae normal Eyes General: appearance normal, both eyes and all related structures Neck Neck: normal visual inspection and supple Resp Effort & Inspection: normal respiratory effort and able to speak in complete sentences Auscultation: clear to auscultation bilaterally Cardio Rate: regular rate Rhythm: regular rhythm Skin Lesions: other (pressure area on coccyx covered with mepilex, no drainage or erythema) Rashes: no rashes Neuro General: patient alert, patient awake and patient oriented x3 Cognition: normal cognition Speech: abnormal speech stuttering (baseline) Extrem Other: Atrophic appearing bilateral lower extremities. Contracted upper extremities Psych Appearance: grossly normal Mental Status: mental status grossly normal Speech and Movement: speech and movement normal Mood: congruent mood Affect: normal affect Objective Last Vital Signs Temp 36.7 C 02/08/23 12:55 Pulse 82 02/08/23 10:47 Resp 20 02/08/23 10:47 BP 134/62 02/08/23 10:47 Pulse Ox 94 02/08/23 10:47 Laboratory Results - last 24 hr 02/08/23 02/08/23 06:40 06:40 WBC 7.47 RBC 3.22 L Hgb 10.4 L Hct 31.6 L MCV 98 H MCH 32.3 MCHC 32.9 RDW 13.2 Plt Count 188 MPV 9.9 Immature Gran % 0.5 Neutrophils % 62.5 Lymphocytes % 28.6 Monocytes % 5.0 Eosinophils % 2.7 Basophils % 0.7 Nucleated RBC % 0.0 Absolute Neutrophils 4.67 Absolute Lymphocytes 2.14 Absolute Monocytes 0.37 Absolute Eosinophils 0.20 Absolute Basophils 0.05 Sodium 135 L Potassium 4.2 Chloride 102 Carbon Dioxide 24.8 Anion Gap 8.2 BUN 16 Creatinine 0.7 Est GFR (CKD-EPI 2020) 86.30 Glucose 129 H Calcium 8.2 L Magnesium 1.9 Time Spent with Patient Time Spent with Patient: 25-34 minutes Time was spent: preparing to see the patient(eg.review tests), ordering medications,tests, procedures, referring, communicating with other health healthcare applications analyst, indepentently interpreting results, counseling the patient and care coordination
[2023-02-08] MEDS: cefTRIAXone 2 GM/50 ML BAG IVPB (18:09)
[2023-02-08] MEDS: Normal Saline Flush 10 ML SYR IVP (18:09)
[2023-02-08 18:26] LABS: Lactate 0.7 mmol/L (0.6-1.4)
[2023-02-08 18:33] LABS: Abs Immature Grans 0.06 10^3/uL (0.0-0.06); Absolute Basophil Count 0.05 10^3/uL (0.0-0.2); Absolute Lymphocyte Count 3.52 10^3/uL (1.2-3.4); Absolute Neutrophil Count 4.16 10^3/uL (1.2-6.7); Basophils % 0.6; Eosinophils % 2.4; HCT 31.5 % (36.0-46.0); HGB 10.4 g/dL (11.2-15.7); Immature Grans % 0.7; Lymphocytes % 41.5; MCH 32.4 pg (27.0-33.0); MCV 98 fL (80-95); Monocytes % 5.9; Neutrophils % 48.9; Platelet Count 197 10^3/uL (130-400); RBC 3.21 10^6/uL (3.93-5.22); RDW 13.2 % (11.7-14.6); RDW-SD 47.4 fL; WBC 8.49 10^3/uL (4.4-10.8)
--- NOTE | 2023-02-08 18:45 | DI.VRAD_ITS ---
PROCEDURE INFORMATION: Exam: XR Chest Exam date and time: 02/08/2023 6:19 PM Age: 82 years old Clinical indication: Other: Fever TECHNIQUE: Imaging protocol: Radiologic exam of the chest. Views: 1 view. COMPARISON: CR XR PORTABLE CHEST AP 02/05/2023 10:22 AM FINDINGS: Lungs: There is pulmonary venous congestion. There is mild diffuse interstitial edema. Underlying inflammatory or infectious process not excluded. Pleural spaces: There are small bilateral pleural effusions. No evidence of pneumothorax. Heart/Mediastinum: The heart is enlarged. There is prominence of the mediastinum. Vasculature: The aorta is calcified torturous Bones/joints: Posterior cervical fusion present. Degenerative changes of the shoulder girdle present. The skeletal structures and soft tissues show no evidence of fracture or other acute processes. Soft tissues: The soft tissues of the extrathoracic region are unremarkable. Other findings: The patient is tilted and rotated to the left. IMPRESSION: 1. Probable congestive heart failure. Underlying inflammatory or infectious process not excluded. 2. There are small bilateral pleural effusions. Dictated and Authenticated by: Marcus Joy MD. Ordering:BRIA Carr MD
[2023-02-08 19:13] LABS: Procalcitonin 0.1 ng/mL
[2023-02-08] MEDS: Senna TAB 1 TAB PO (21:10)
[2023-02-08] MEDS: Gabapentin 600 MG TAB PO (21:10)
[2023-02-08] MEDS: Atorvastatin 10 MG TAB PO (21:10)
[2023-02-09 03:02] VITALS: BP 113/56; PULSE 78; RESP 20; TEMP 37.3; O2SAT 94
[2023-02-09] MEDS: Levothyroxine 75 MCG TAB PO (05:29)
[2023-02-09 07:01] LABS: Abs Immature Grans 0.04 10^3/uL (0.0-0.06); Absolute Basophil Count 0.04 10^3/uL (0.0-0.2); Absolute Eosinophil Count 0.19 10^3/uL (0.0-0.7); Absolute Lymphocyte Count 2.27 10^3/uL (1.2-3.4); Absolute Monocyte Count 0.36 10^3/uL (0.1-0.8); Absolute Neutrophil Count 3.25 10^3/uL (1.2-6.7); Basophils % 0.7; Eosinophils % 3.1; HGB 10.1 g/dL (11.2-15.7); Immature Grans % 0.7; Lymphocytes % 36.9; MCH 32.3 pg (27.0-33.0); MCHC 32.6 % (32.0-36.0); MCV 99 fL (80-95); MPV 10.2 fL (8.0-11.0); Monocytes % 5.9; Neutrophils % 52.7; Platelet Count 166 10^3/uL (130-400); RBC 3.13 10^6/uL (3.93-5.22); RDW 13.3 % (11.7-14.6); RDW-SD 48.2 fL; WBC 6.15 10^3/uL (4.4-10.8)
[2023-02-09 07:14] VITALS: BP 138/59; PULSE 63; RESP 20; TEMP 36.5; O2SAT 93
[2023-02-09 07:18] LABS: Anion Gap 8.6 mmol/L (3-11); BUN 12 mg/dL (7-18); CO2 26.4 mmol/L (21.0-32.0); CREATININE 0.6 mg/dL (0.55-1.02); Calcium 8.1 mg/dL (8.5-10.1); Chloride 102 mmol/L (98-107); Estimated GFR 89.56 (mL/min/1.73m2); Glucose 136 mg/dL (74-106); Magnesium 1.8 mg/dL (1.8-2.4); Potassium 3.9 mmol/L (3.5-5.1); Sodium 137 mmol/L (136-145)
[2023-02-09] MEDS: Calcium 600mg/Vit D 200U TAB 1 TAB PO (08:00)
[2023-02-09] MEDS: Baclofen 10 MG TAB 20 MG PO (08:00)
[2023-02-09] MEDS: Salt Supplement (BUFFERED) TAB 1 TAB PO (08:00)
[2023-02-09] MEDS: Mirabegron 50 MG TABCR PO (08:00)
[2023-02-09] MEDS: Omeprazole 20 MG CAPCR PO (08:00)
[2023-02-09] MEDS: Cyanocobalamin 500 MCG TAB 1000 MCG PO (08:01)
[2023-02-09] MEDS: Gabapentin 400 MG CAP PO (08:01)
[2023-02-09] MEDS: Magnesium Oxide 400 MG TAB PO (08:01)
[2023-02-09] MEDS: Aspirin E.C. 81 MG TABEC PO (08:01)
[2023-02-09] MEDS: Multivitamin TAB 1 TAB PO (08:02)
[2023-02-09] MEDS: Lisinopril 2.5 MG TAB PO (08:02)
--- NOTE | 2023-02-09 10:40 | DSE_ITS ---
Date of service: 02/09/23 Time of Service: 10:40 DS: Diagnosis Discharge Diagnosis (1) Acute hyponatremia: Status: Acute (2) Fever: Status: Acute (3) Diabetes mellitus: Status: Chronic (4) Interstitial lung disease: (5) Neurogenic bladder: Status: Chronic (6) Constipation: Status: Acute (7) DVT prophylaxis: Status: Resolved (8) Discharge planning issues: Status: Resolved Discharge Plan Disposition Patient Disposition: Home Condition: Improving Discharge Details Reason For Visit: Hyponatremia Admit Date/Time: 02/08/23 13:50 Admit Provider: Mervin Rosaod Attending Provider: Mervin Rosado Primary Care Provider: Nida Farooq Va Hospital Course Hospital Course: This is a 82-year-old female patient with a history of quadriplegia, neurogenic bladder with suprapubic catheter, constipation, history of AAA, hyperlipidemia, recent pneumonia, recent UTI, breast CA, MOLLY, hyperlipidemia, diabetes and? spinal stenosis who presented to the [facility] emergency department 02/05/23 with weakness and fever.? She was recently discharged from the hospital after pneumonia and UTI and was discharged home on 5-day course of antibiotics which she completed. She denied pain, no stiff neck, headache, difficulty swallowing, sore throat, nausea, vomiting.? She was found to have a sodium of 127.? She was admitted to the medical floor for hyponatremia, further testing and treatment.?? She was found to be growing yeast in her urine and was started on fluconazole. Her fluids were restricted and she was given judicial hydration with normal saline with two 3% saline boluses. Her sodium is now normal. She is being discharged to home with fluconazole 200 mg once a day for 14 days, water restriction 1500. had reported pounding the water to her. He was made aware of the sodium and the free water limits and voiced understanding. She is very concerned about having to come right back to the hospital, she feels her can no longer care for her. Other family reports she has 24/7 care givers. Her vital signs are stable, no fevers, blood cultures are negative. She is discharged to home, improved, via EMS. Recommend a BMP be drawn by home health in 5 days to recheck her electrolytes. Home health should continue previously ordered wound care for her existing pressure injury on her coccyx. Full resumption of Home Health services.? Home Meds and New Rx's Prescriptions: New fluconazole 200 mg tablet 200 mg PO DAILY Qty: 14 0RF Continued magnesium oxide 400 mg magnesium capsule 400 mg PO BID AZO D-Mannose 500 mg capsule 1,000 mg PO BID cyanocobalamin (vitamin B-12) 1,000 mcg capsule 1,000 mcg PO DAILY lidocaine 5 % cream 1 applic topical TID PRN calcium carbonate-vitamin D3 [Calcium 500 With D] 500 mg(1,250mg) -400 unit Tablet 1 tab PO BID gabapentin 600 mg tablet 600 mg PO HS Rx Instructions: (in addition 400mg BID @ ,) Renacidin 1,980.6 mg-59.4 mg-980.4mg/30mL solution 30 ml irrigation DAILY levothyroxine 75 mcg tablet 75 mcg PO QAM sennosides [senna] 8.6 mg Tablet 8.6 mg PO QHS omeprazole 20 mg Tablet,Delayed Release (Dr/Ec) 20 mg PO DAILY ondansetron 4 mg tablet,disintegrating 4 mg PO Q8H PRNQty: 10 0RF Myrbetriq 50 mg Tablet Extended Release 24 Hr 50 mg PO DAILY multivitamin Tablet 1 tab PO DAILY metformin 500 mg Tablet 1,000 mg PO BID atorvastatin 10 mg Tablet 10 mg PO HS aspirin 81 mg Tablet,Delayed Release (Dr/Ec) 81 mg PO DAILY baclofen 10 mg tablet 20 mg PO TID acetaminophen 500 mg tablet 1,000 mg PO TID PRN gabapentin [Neurontin] 400 mg capsule 400 mg PO BID Rx Instructions: @ 08 & noon (in addition to 600mg qHS) lisinopril 2.5 mg Tablet 2.5 mg PO DAILY Qty: 30 0RF Discontinued prednisone 20 mg Tablet See Taper PO DAILY Qty: 20 0RF Taper: Prednisone 10mg taper 40 mg Daily for 2 Days and 0 Hour 30 mg Daily for 2 Days and 0 Hour 20 mg Daily for 2 Days and 0 Hour 10 mg Daily for 2 Days and 0 Hour 5 mg Daily for 2 Days and 0 Hour Discharge Instructions Instructions: Fluconazole (By mouth), Hyponatremia (DC), Catheter-associated Urinary Tract Infection (DC) Additional Instructions: Take fluconazole one a day for 14 days. Tylenol for fever. Limit water intake to 1500 ml (one and 1/2 litres) per day. Resume home health services Stand Alone Forms: Nursing Discharge Form Referrals: Nida Farooq [Primary Care Provider] - ([facility] will call you with an Apointment in the next 1-2 weeks Follow up regarding hypertension and med adjustment Recommend BMP in 5 d to check electrolytes ) Activity:: Activity as Tolerated Equipment/Supplies:: No Equipment Needed Diet:: Low Sodium Discharge Orders Discharge Orders: Discharge Order (Routine); Ordered 02/09/23 Ordered By: Lilly Merritt Other Ambulatory Orders: Basic Metabolic Panel (Routine) Timeframe: 20230213 Location: Determined by Patient Ordered By: Lilly Merritt Discharge Data Discharge Date/Time-TO BE ENTERED AT DEPARTURE: 02/09/23 11:54 DS: Summary Time Spent with Patient providing and/or coordinating discharge services: Greater than 30 minutes Status at Discharge Functional status at discharge: bed bound Overall status at discharge: patient is back to baseline Mental Status: mental status grossly normal Speech and Movement: speech and movement normal Mood: congruent mood Affect: normal affect Exam Const General: cooperative and no acute distress Orientation: alert, awake and oriented x3 HENMT Head: normal to inspection Ears: hearing grossly normal bilaterally Face and sinus: normal facial exam Mouth: oral mucosae normal Eyes General: appearance normal, both eyes and all related structures Neck Neck: normal visual inspection and supple Resp Effort & Inspection: normal respiratory effort and able to speak in complete sentences Auscultation: clear to auscultation bilaterally Cardio Rate: regular rate Rhythm: regular rhythm Skin Lesions: other (pressure area on coccyx covered with mepilex, no drainage or erythema) Rashes: no rashes Neuro General: patient alert, patient awake and patient oriented x3 Cognition: normal cognition Speech: abnormal speech stuttering (baseline) Extrem Other: Atrophic appearing bilateral lower extremities. Contracted upper extremities Psych Appearance: grossly normal Mental Status: mental status grossly normal Speech and Movement: speech and movement normal Mood: congruent mood Affect: normal affect DS: Data Vitals/I&O Vitals and I&O: Vital Signs Temperature 36.5 C 02/09/23 07:14 Temperature Source Tympanic 02/09/23 07:14 Pulse 63 02/09/23 07:14 Pulse Rhythm Regular 02/09/23 02:10 Respiratory Rate 20 02/09/23 07:14 Respiratory Effort Normal, Non-Labored 02/09/23 02:10 Respiratory Depth Normal 02/09/23 02:10 Respiratory Pattern Normal 02/09/23 02:10 Blood Pressure 138/59 L 02/09/23 07:14 Blood Pressure Mean 98 02/05/23 07:58 Blood Pressure Position Supine 02/05/23 07:53 Pulse Oximetry 93 02/09/23 07:14 Oxygen Delivery Method Room Air 02/09/23 07:14 Oxygen Flow Rate 0 02/09/23 07:14 Pain Level 0 02/08/23 22:23 Comment Temperature recheck approximately one hour post acetaminophen (Tylenol) administration. 02/08/23 12:55 Intake & Output 02/08/23 02/08/23 02/09/23 11:59 23:59 11:59 Intake Total 120 / 240 120 / 240 120 / 120 Output Total 550 / 1100 550 / 1100 1100 / 1100 Balance -430 / -860 -430 / -860 -980 / -980 Intake: Oral 120 / 240 120 / 240 120 / 120 Output: Urine 550 / 1100 550 / 1100 1100 / 1100 Other: Urine Color Yellow Yellow Yellow Light Pilar Urine Appearance Clear Clear Clear Data Completed and Pending Labs on day of discharge: Labs from last 24 hours 02/09/23 02/09/23 02/08/23 06:24 06:24 18:15 WBC 6.15 RBC 3.13 L Hgb 10.1 L Hct 31.0 L MCV 99 H MCH 32.3 MCHC 32.6 RDW 13.3 Plt Count 166 MPV 10.2 Immature Gran % 0.7 Neutrophils % 52.7 Lymphocytes % 36.9 Monocytes % 5.9 Eosinophils % 3.1 Basophils % 0.7 Nucleated RBC % 0.0 Absolute Neutrophils 3.25 Absolute Lymphocytes 2.27 Absolute Monocytes 0.36 Absolute Eosinophils 0.19 Absolute Basophils 0.04 VBG Lactate 0.7 Sodium 137 Potassium 3.9 Chloride 102 Carbon Dioxide 26.4 Anion Gap 8.6 BUN 12 Creatinine 0.6 Est GFR (CKD-EPI 2020) 89.56 Glucose 136 H Calcium 8.1 L Magnesium 1.8 Procalcitonin 0.1 02/08/23 18:15 WBC 8.49 RBC 3.21 L Hgb 10.4 L Hct 31.5 L MCV 98 H MCH 32.4 MCHC 33.0 RDW 13.2 Plt Count 197 MPV 10.0 Immature Gran % 0.7 Neutrophils % 48.9 Lymphocytes % 41.5 Monocytes % 5.9 Eosinophils % 2.4 Basophils % 0.6 Nucleated RBC % 0.0 Absolute Neutrophils 4.16 Absolute Lymphocytes 3.52 H Absolute Monocytes 0.50 Absolute Eosinophils 0.20 Absolute Basophils 0.05 VBG Lactate Sodium Potassium Chloride Carbon Dioxide Anion Gap BUN Creatinine Est GFR (CKD-EPI 2020) Glucose Calcium Magnesium Procalcitonin 02/08/23 18:15 Blood Blood Culture - Pending Preliminary micro results at discharge 02/08/23 18:15 Blood Culture - Pending Blood 02/05/23 09:16 Blood Culture - Preliminary Blood NO GROWTH 72 HOURS 02/05/23 09:03 Blood Culture - Preliminary Blood NO GROWTH 72 HOURS PFSH All Active Problems (Updated 02/08/23 @ 17:58 by Lilly Merritt NP) Fever (Acute) Acute hyponatremia (Acute) Suprapubic catheter (Acute) Pleural thickening (Acute) Pleural effusion (Acute) Pressure ulcer (Acute) Advanced care planning/counseling discussion (Acute) Quadriplegia (Acute) Palliative care encounter (Acute) Constipation (Acute) Shortness of breath (Acute) Pneumonia (Acute) Acute UTI (Acute) Spinal stenosis, lumbar (Acute) Primary malignant neoplasm of breast (Acute) Neurogenic claudication (Acute) Hypothyroidism (Chronic) Hypertension (Chronic) Constipation due to neurogenic bowel (Acute) Benign neoplasm of colon (Acute) Autonomic dysreflexia (Acute) Arm edema (Acute) Nail dystrophy (Acute) UTI (urinary tract infection) (Acute) Transaminitis (Acute) Bladder spasm (Acute) COVID-19 ruled out (Acute) Neuropathic pain of finger of right hand (Acute) Fungal dermatitis (Acute) Chronic suprapubic catheter (Chronic) Hypomagnesemia (Acute) Acute UTI (Acute) Infiltrate of lung present on imaging of chest (Acute) UTI (urinary tract infection) (Acute) Hyperlipemia (Chronic) Intracranial aneurysm (Chronic) AAA (abdominal aortic aneurysm) (Chronic) Suprapubic catheter (Chronic) Diabetes mellitus (Chronic) Neurogenic bladder (Chronic) Paraplegia (Chronic) Medical History Cervical disc disorder CTS (carpal tunnel syndrome) left wrist ESBL (extended spectrum beta-lactamase) producing bacteria infection History of breast cancer Interstitial lung disease Pressure ulcer Surgical History H/O breast surgery H/O cervical spine surgery S/P cholecystectomy S/P rotator cuff repair S/P trigger finger release S/P tubal ligation Social History (Updated 01/23/23 @ 22:09 by Armen Parker) Smoking/Tobacco Use Status: Former Tobacco Use Quit Date: 08/17/06 Pack-years: 40 Smoking risk assessment performed?: Yes Alcohol Intake: never Drug use: Never Substance use type: does not use Current gender identity: female Do you feel safe at home: Yes Do you feel safe in your relationship?: Yes Additional Social history: lives with her in [place], [place]. Has [facility]. Time Spent with Patient Time Spent with Patient: 70-84 minutes4 Time was spent: preparing to see the patient(eg.review tests), ordering medications,tests, procedures, referring, communicating with other health care support representative, indepentently interpreting results, counseling the patient and care coordination
[2023-02-09] MEDS: Bacitracin 1 PACKET (11:39)
--- NOTE | 2023-02-09 13:56 | PDOC.CMDIS ---
Date of service: 02/09/23 Time of Service: 12:00 LACE Index Scoring Tool Questions: Length of Stay (in days): 1 Was the patient admitted via the E.D.?: Yes Comorbidities: Any Tumor (HX Benign neoplasm of colon), Liver or Renal Disease and Metastatic Solid Tumor (HX Neoplasm of breast) E.D. Visits: 4 Answers: Total Score: 13 Risk of Readmission: High Risk Care Management Discharge Plan Reason for Hospitalization: Hyponatremia Discharge Plan: Janene is discharge home with resumption of [facility] and caregiver support. She is transported via [facility]. She will follow up with outpatient providers and her discharge plan of care as instructed. Discharge planning is discussed with her Bandar prior to discharge. Patient/Family Education Needs: Review discharge instructions, limitations, medications and plan to follow up with community providers. Discuss ask me three. Services Needed at Discharge: Home Health Care Services ([facility], resumption of services. CM notified Elisha prior to discharge. ) and Transportation ([facility], coordinated by CM)
== END 2023-02-09 11:54 | disposition home or self-care (01) | DRG 757 ==
LOC: ER 12:05 → MS 14:01
PROVIDERS: Nurse Practitioner Family; Admitting Provider Family Medicine; Emergency Provider Physician Assistant; PCP Nurse Practitioner Family; Visit Provider Family Medicine
DX: B37.49 Other urogenital candidiasis (principal); G82.50 Quadriplegia, unspecified; E87.1 Hypo-osmolality and hyponatremia; J84.9 Interstitial pulmonary disease, unspecified; E11.9 Type 2 diabetes mellitus without complications; N31.9 Neuromuscular dysfunction of bladder, unspecified; K59.00 Constipation, unspecified; Z93.51 Cutaneous-vesicostomy status; Z85.3 Personal history of malignant neoplasm of breast; E78.5 Hyperlipidemia, unspecified; I71.40 Abdominal aortic aneurysm, without rupture, unspecified; M48.062 Spinal stenosis, lumbar region with neurogenic claudication; Z87.891 Personal history of nicotine dependence; R50.9 Fever, unspecified; Z79.84 Long term (current) use of oral hypoglycemic drugs; L89.159 Pressure ulcer of sacral region, unspecified stage
CPT/HCPCS: 36410; 36415; 36569; 80048; 80053; 84145; 87040; 87635; 93005; J1650; 71045; 81003; 81015; 83605; 83735; 84443; 84484; 85025; 87086; 93010; 99222; 99232; 99239; G0378; J1450; J1940; J1941; J2543

== ENCOUNTER 2023-02-13 19:47 | Inpatient (IN) | payer OTHER, SELFPAY ==
[2023-02-13] VITALS (23 sets, daily range): BP systolic 124–162; BP diastolic 68–78; PULSE 68–90; RESP 15–36; TEMP 37.1–37.5; O2SAT 92–96
--- NOTE | 2023-02-13 19:30 | RT.EKG_ITS ---
APPROVED REPORT Exam: Resting ECG Reason for Exam: low sodium Patient Location: E HR:82 bpm ECG Measurements Heart Rate 82 AXIS GA 176 P 45 QRSd 89 QRS 9 QT 366 T 28 QTc 421 Conclusion Sinus rhythm...normal P axis, V-rate 60- 99 Ventricular premature complex...V complex w/ short R-R interval sinus rhythm, normal axis, normal intervals, non ischemic, PVCs
[2023-02-13 20:06] LABS: HCT 32.3 % (36.0-46.0); HGB 11.2 g/dL (11.2-15.7); MCH 32.6 pg (27.0-33.0); MCHC 34.7 % (32.0-36.0); MCV 94 fL (80-95); MPV 10.2 fL (8.0-11.0); Platelet Count 177 10^3/uL (130-400); RBC 3.44 10^6/uL (3.93-5.22); RDW 12.9 % (11.7-14.6); RDW-SD 44.1 fL; WBC 8.18 10^3/uL (4.4-10.8)
[2023-02-13 20:22] LABS: ALT 26 U/L (14-59); AST 18 U/L (15-37); Albumin 3.2 g/dL (3.4-5.0); Alkaline Phosphatase 44 U/L (46-116); BUN 8 mg/dL (7-18); Bilirubin, Total 0.6 mg/dL (0.2-1.0); CREATININE 0.6 mg/dL (0.55-1.02); Calcium 8.5 mg/dL (8.5-10.1); Chloride 91 mmol/L (98-107); Estimated GFR 89.56 (mL/min/1.73m2); Glucose 101 mg/dL (74-106); Potassium 4.9 mmol/L (3.5-5.1); Total Protein 6.7 g/dL (6.4-8.2)
[2023-02-13 20:25] LABS: Sodium 124 mmol/L (136-145)
--- NOTE | 2023-02-13 20:45 | DI.RAD_ITS ---
Exam(s) XR PORTABLE CHEST AP EXAM: XR PORTABLE CHEST AP CLINICAL HISTORY: weakness TECHNIQUE: 2D digital imaging was performed of the chest. One image was obtained. An AP view was ob tained. COMPARISON: CR,XR XR PORTABLE CHEST AP from 02/08/2023 FINDINGS: MEDIASTINUM: Normal. HEART: Mild cardiomegaly. PULMONARY VASCULATURE: Normal. Atherosclerosis. LUNGS: Persistent interstitial markings seen bilaterally. No focal consolidation is present. PLEURAL SPACE: No pleural effusion or pneumothorax. BONE:Within normal limits for the patient's age. Posterior surgical changes are again seen in the low er cervical spine. OTHER FINDINGS:Normal. IMPRESSION: Persistent interstitial infiltrates and/or edema. DATA REPOSITORY: RADIATION DOSE DELIVERED:
--- NOTE | 2023-02-13 21:10 | ED.GENADUL_ITS ---
Discharge Plan Disposition Patient Disposition: Admit to [facility] Discharge Details Chief Complaint: GenMedical Clinical Impression: Acute hyponatremia Admit Date/Time: 02/13/23 21:28 Admit Provider: Armen Parker Attending Provider: Armen Parker Primary Care Provider: Nida Farooq ED Provider: Rosana Billingsley Discharge Data Discharge Date/Time-TO BE ENTERED AT DEPARTURE: 02/13/23 22:41 Medical Decision Making Patient is a pleasant 82-year-old female, brought in via EMS, with report of hyponatremia. Patient accompanied by her . Past medical history is significant for posttraumatic quadriplegia, suprapubic catheter, pneumonia, breast cancer, neurogenic claudication, hypertension, hypothyroidism, constipation, autonomic dysreflexia, toxic metabolic encephalopathy, AAA, diabetes mellitus. Patient's been admitted twice in the past month for hyponatremia as well as infections including UTI and pneumonia. She denies any fevers since being discharged 3 days ago. However, on routine labs completed by her physician in follow-up today she was noted to have sodium of 125 prompting them to advised patient come to the emergency department. She reports that since being discharged, she has been fatigued, had some low-level nausea, reports that she has not been smiling as much and not herself. Patient does wish to be a full code and would like to be admitted for further correction. On exam, patient appears acute on chronically ill. She is pale, lying in the bed with a quiet voice. Lungs are clear, normal cardiac exam. Her vital signs are stable. She is afebrile. She has dressings on both ankles associated with bedsores. Dressings over known grade 3 bedsores. Abdomen is benign. Patient has limited mobility of the upper extremities that Melodie fairly contracted form. She is mentating well. Concern for potential symptomatic hyponatremia. Repeat sodium 124. I do not see evidence of severe hyponatremia I do not see need for emergent reversal of this. We will hold off on any hypertonic saline at this time. She did have a few boluses of hypertonic saline when she was admitted recently. Questioning if this is associated with the p.o. intake. She has been having water as encou raged by her as well as Gatorade. He does state that he has been trying to limit this has not been measuring this. Had a piece of toast but otherwise has had very limited p.o. intake. At this time, I do not see evdience of severe hyponatremia needing emergent correction, will hold off currently. Will admit for slow correction and further evalatuion of her recurrent hyponatremia. Concerned that this may be associated with her PO intake. She has not had much food, has been having limited salt intake, unclear if really limiting fluids. Consulted with hospitalist who agrees to admission for symptomatic hyponatremia. Patient and family had lengthy discussion regarding end of life care. She had given indication that she would like to be home, not interested in continuing with agreesive care. However, further discussion with family and patient puts patient on full code. I have asked for another palliative care patient as chronic care and goals of care are unclear at this time. HPI General Date/Time Provider Initiated Documentation: 02/13/23 19:59 . Limitations to Documentation: no limitations . Information obtained by: patient, family ( ), EMS, RN notes reviewed and old records reviewed . History of Present Illness 82 year old F presents to the emergency department with the chief complaint of recurrent hyponatremia, described as moderate and similar to prior episodes, Quality is described as other (denies pain, quadriplegic, limited sensation), and it has been constant (progressive). No exacerbating factors reported (stopped physical therapy) . Patient notes rash (decubitus ulcer) and weakness (quadriplegia, more fatigued than tytpical); denies confusion, chest pain, cough, diaphoresis, fever/chills, nausea/vomiting and shortness of breath. Patient did receive the following treatments prior to arrival, none Related Data Home Medications Medication Instructions Recorded Confirmed aspirin 81 mg tablet,delayed 81 mg PO DAILY 06/23/18 02/13/23 release atorvastatin 10 mg tablet 10 mg PO HS 06/23/18 02/13/23 metformin 500 mg tablet 1,000 mg PO BID 06/23/18 02/13/23 multivitamin 1 tab PO DAILY 06/23/18 02/13/23 calcium carbonate 500 mg-vitamin 1 tab PO BID 06/16/19 02/13/23 D3 10 mcg (400 unit) tablet (Calcium 500 With D) citric ac 1980.6 mg-glucono 59.4 30 ml irrigation DAILY 12/21/19 02/13/23 mg-mag carb 980.4 mg/30 mL irrig.soln (Renacidin) baclofen 10 mg tablet 20 mg PO TID 06/24/22 02/13/23 acetaminophen 500 mg tablet 1,000 mg PO TID PRN 08/25/22 02/13/23 cyanocobalamin (vitamin B-12) 1,000 mcg PO DAILY 08/25/22 02/13/23 1,000 mcg capsule d-mannose 500 mg capsule (AZO 1,000 mg PO BID 08/25/22 02/13/23 D-Mannose) gabapentin 400 mg capsule 400 mg PO BID 08/25/22 02/13/23 (Neurontin) gabapentin 600 mg tablet 600 mg PO HS 08/25/22 02/13/23 lidocaine 5 % topical cream 1 applic topical TID PRN 08/25/22 02/13/23 magnesium oxide 400 mg PO BID 08/25/22 02/13/23 levothyroxine 75 mcg tablet 75 mcg PO QAM 12/03/22 02/13/23 omeprazole 20 mg tablet,delayed 20 mg PO DAILY 12/03/22 02/13/23 release sennosides 8.6 mg tablet (senna) 8.6 mg PO QHS 12/03/22 02/13/23 ondansetron 4 mg disintegrating 4 mg PO Q8H PRN #10 tabs 12/05/22 02/13/23 tablet lisinopril 2.5 mg tablet 2.5 mg PO DAILY #30 tabs 01/31/23 02/13/23 mirabegron 50 mg tablet,extended 50 mg PO DAILY 02/06/23 02/13/23 release 24 hr (Myrbetriq) fluconazole 200 mg tablet 200 mg PO DAILY #14 tabs 02/09/23 02/13/23 Previous Rx's Medication Instructions Recorded ondansetron 4 mg disintegrating 4 mg PO Q8H PRN #10 tabs 12/05/22 tablet lisinopril 2.5 mg tablet 2.5 mg PO DAILY #30 tabs 01/31/23 fluconazole 200 mg tablet 200 mg PO DAILY #14 tabs 02/09/23 Allergies Allergy/AdvReac Type Severity Reaction Status Date / Time ibuprofen AdvReac Mild Nausea Unverified 02/05/23 13:14 General Stated Complaint: GenMedical BEVERLY: 3 Review of Systems Constitutional Constitutional: Reports as per HPI, Denies chills, Reports fatigue, Denies fever(s), Denies headache(s), Reports lethargy and Reports malaise Eyes Eyes: Reports as per HPI and Denies change in vision ENT Ears, Nose, Mouth, and Throat: Denies dizziness and Denies headache(s) Cardiovascular Cardiovascular: Reports as per HPI, Denies chest pain, Denies lightheadedness and Denies dyspnea Respiratory Respiratory: Reports as per HPI, Denies chest congestion, Denies cough and Denies dyspnea Gastrointestinal Gastrointestinal: Reports as per HPI, Denies abdominal pain, Denies change in bowel habits, Denies nausea and Denies vomiting Musculoskeletal Musculoskeletal: Reports as per HPI, Denies back pain, Denies myalgias and Reports numbness (chronic weakness and sensory deficit with quadriplegia) Integumentary/Breasts Skin/Breast: Reports as per HPI Neurologic Neurologic: Reports as per HPI, Denies abnormal speech, Denies confusion, Denies dizziness, Denies headache(s) and Reports numbness (chronic weakness and sensory deficit with quadriplegia) Psychiatric Psychiatric: Denies confusion Endocrine Endocrine: Reports fatigue PFSH All Active Problems (Updated 02/14/23 @ 23:28 by KAJAL Gavin) Acute hyponatremia (Acute) Discharge planning issues (Acute) DVT prophylaxis (Acute) Suprapubic catheter (Acute) Pleural thickening (Acute) Pleural effusion (Acute) Pressure ulcer (Acute) Advanced care planning/counseling discussion (Acute) Quadriplegia (Acute) Palliative care encounter (Acute) Constipation (Acute) Shortness of breath (Acute) Pneumonia (Acute) Acute UTI (Acute) Spinal stenosis, lumbar (Acute) Primary malignant neoplasm of breast (Acute) Neurogenic claudication (Acute) Hypothyroidism (Chronic) Hypertension (Chronic) Constipation due to neurogenic bowel (Acute) Benign neoplasm of colon (Acute) Autonomic dysreflexia (Acute) Arm edema (Acute) Nail dystrophy (Acute) UTI (urinary tract infection) (Acute) Transaminitis (Acute) Bladder spasm (Acute) COVID-19 ruled out (Acute) Neuropathic pain of finger of right hand (Acute) Fungal dermatitis (Acute) Chronic suprapubic catheter (Chronic) Hypomagnesemia (Acute) Acute UTI (Acute) Infiltrate of lung present on imaging of chest (Acute) UTI (urinary tract infection) (Acute) Hyperlipemia (Chronic) Intracranial aneurysm (Chronic) AAA (abdominal aortic aneurysm) (Chronic) Suprapubic catheter (Chronic) Diabetes mellitus (Chronic) Neurogenic bladder (Chronic) Paraplegia (Chronic) Medical History Cervical disc disorder CTS (carpal tunnel syndrome) left wrist ESBL (extended spectrum beta-lactamase) producing bacteria infection History of breast cancer Interstitial lung disease Surgical History H/O breast surgery H/O cervical spine surgery S/P cholecystectomy S/P rotator cuff repair S/P trigger finger release S/P tubal ligation Social History Smoking/Tobacco Use Status: Former Tobacco Use Quit Date: 08/17/06 Pack-years: 40 Smoking risk assessment performed?: Yes Alcohol Intake: never Drug use: Never Substance use type: does not use Housing: house Current gender identity: female Do you feel safe at home: Yes Do you feel safe in your relationship?: Yes Additional Social history: lives with her in [place], [place]. Has [employer]. Exam Const General: cooperative, not healthy appearing, no acute distress, well developed, well groomed and ill appearing acutely and chronically Nutritional Appearance: average body habitus and other (appears pale, weak) Orientation: alert, awake and oriented x3 HENMT Head: normal to inspection, no palpable skull fracture, normocephalic and atraumatic Mouth: oral mucosae normal and mucous membranes dry (dry) Eyes General: appearance normal, both eyes and all related structures Alignment and Position: alignment normal Periorbital: periorbital findings normal Eyelids: eyelids normal Sclera: sclerae normal Cornea: corneas normal Pupils: PERRL EOM: EOM intact bilaterally Neck Neck: normal visual inspection, full ROM, no lymphadenopathy and no meningeal signs Chest Chest: other (s/p mastectomy, 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) Resp Effort & Inspection: normal respiratory effort, able to speak in complete sentences and no respiratory distress Auscultation: clear to auscultation bilaterally, no rales, no rhonchi and no wheezes Cardio Rate: regular rate Rhythm: regular rhythm Heart Sounds: S1 normal and S2 normal GI Inspection: normal to inspection and non-distended Palpation: soft, not firm, no guarding, not rigid and nontender Percussion: normal to percussion Back/Spine/Pelvis Cervical Spine: normal cervical lordosis and cervical ROM normal Skin General skin exam: other (dressing over points of contact with bed) Neuro General: patient alert, patient awake and patient oriented x3 Cognition: normal cognition Speech: speech normal Gait: other (quadriplegia, arms in semiflex position with slight tremor) Motor: muscle tone normal throughout, strength 5/5 throughout, no pronator drift, no movement abnormalities noted and no fasciculations Sensory Exam: other (insensate arms/legs) Extrem General: normal to inspection, capillary refill normal, no pedal edema and no calf tenderness Course Vital Signs Vital signs: Vital Signs Temperature 37.5 C 02/13/23 19:48 Pulse 83 02/13/23 19:48 Respiratory Rate 23 02/13/23 19:48 Blood Pressure 124/78 02/13/23 19:48 Pulse Oximetry 93 02/13/23 19:48 Temperature 37.5 C 02/13/23 19:48 Temperature Source Oral 02/13/23 19:48 Pulse 83 02/13/23 19:48 Respiratory Rate 23 02/13/23 19:48 Respiratory Effort Normal, Non-Labored 02/13/23 20:31 Blood Pressure 124/78 02/13/23 19:48 Blood Pressure Position Supine 02/13/23 19:48 Pulse Oximetry 93 02/13/23 19:48 Oxygen Delivery Method Room Air 02/13/23 19:48 Oxygen Flow Rate 0 02/13/23 19:48 Lab/Test Results Lab/Test Results: Laboratory Tests Range/Units 02/13/23 02/13/23 20:00 20:00 WBC (4.4-10.8) 10^3/uL 8.18 RBC (3.93-5.22) 10^6/uL 3.44 L Hgb (11.2-15.7) g/dL 11.2 Hct (36.0-46.0) % 32.3 L MCV (80-95) fL 94 D MCH (27.0-33.0) pg 32.6 MCHC (32.0-36.0) % 34.7 D RDW (11.7-14.6) % 12.9 Plt Count (130-400) 10^3/uL 177 MPV (8.0-11.0) fL 10.2 Sodium (136-145) mmol/L 124 L Potassium (3.5-5.1) mmol/L 4.9 Chloride (98-107) mmol/L 91 L Carbon Dioxide (21.0-32.0) mmol/L 27.0 Anion Gap (3-11) mmol/L 6.0 BUN (7-18) mg/dL 8 Creatinine (0.55-1.02) mg/dL 0.6 Est GFR (CKD-EPI 2020) (mL/min/1.73m2) 89.56 Glucose (74-106) mg/dL 101 Calcium (8.5-10.1) mg/dL 8.5 Total Bilirubin (0.2-1.0) mg/dL 0.6 AST (15-37) U/L 18 ALT (14-59) U/L 26 Alkaline Phosphatase (46-116) U/L 44 L Total Protein (6.4-8.2) g/dL 6.7 Albumin (3.4-5.0) g/dL 3.2 L
[2023-02-13 21:13] LABS: Lactate 1.4 mmol/L (0.6-1.4)
--- NOTE | 2023-02-13 21:34 | DI.VRAD_ITS ---
PROCEDURE INFORMATION: Exam: XR Chest Exam date and time: 02/13/2023 9:01 PM Age: 82 years old Clinical indication: Other: Weakness TECHNIQUE: Imaging protocol: Radiologic exam of the chest. Views: 1 view. COMPARISON: XR PORTABLE CHEST AP 02/08/2023 6:19 PM FINDINGS: Tubes, catheters and devices: Monitoring wires present. Lungs: Interstitial markings are prominent in both lungs. No consolidation. No vascular congestion. Pleural spaces: Trace pleural effusions. No pneumothorax. Heart/Mediastinum: Mild cardiomegaly. Bones/joints: Chronic rotator cuff tears. Mild degenerative changes in the thoracic spine. IMPRESSION: Interstitial infiltrates and/or edema. Dictated and Authenticated by: Orestes Briggs MD. Ordering:KATHLEEN Wayne MD
[2023-02-13 21:43] LABS: Source Nasal/Nares
[2023-02-13 22:03] LABS: Bilirubin Negative (Negative); Blood Moderate (Negative); Clarity Clear (Clear); Glucose Negative (Negative); Ketones Negative (Negative); Leukocyte Esterase Negative (Negative); Nitrite Negative (Negative); Specific Gravity 1.015 (1.005-1.025); Urobilinogen 0.2 mg/dL (Up to 0.2)
[2023-02-13 22:07] LABS: Bacteria Rare HPF (Negative); C & S Indicated? No; Casts Negative LPF (Negative); Crystals Negative HPF (Negative); Epithelial Cells Few HPF (Negative); Mucus Negative (Negative); WBC Negative HPF (0-5)
--- NOTE | 2023-02-13 22:15 | NUR.NOTE ---
Report given to Yessi Pang RN
[2023-02-13 22:28] LABS: Sodium, Urine 67 mmol/L
[2023-02-13 22:39] LABS: COVID-19 PCR Negative (Negative)
--- NOTE | 2023-02-13 23:39 | W.PM.HP.N ---
Date of service: 02/13/23 Time of Service: 23:39 Assessment and Plan Assessment and plan (1) Hyponatremia: Status: Resolved Assessment and plan: Hyponatremia worse despite recommending fluid restriction. This is hypoosmotic euvolemic hyponatremia. With her lung disease I suspect HAROONH, will get urine osmolality and sodium. Will follow sodium. Adrenal insufficiency in DDx, though her BP is high rather than low. Given non-severe symtoms with Na+ of 124 I don't think hypertonic infusion is appropriate. Fluid restrict to 1.2L/day Salt tablets TID (2) Hypertension: Status: Chronic Assessment and plan: Mildly elevated now, continue lisinopril (3) Hypothyroidism: Status: Chronic Assessment and plan: This can contribute to low sodium, but TSH was normal earlier this month. Continue levothyroxine. (4) Interstitial lung disease: Assessment and plan: Chest XR looks like this is stable. Assessment with PET still pending. Breathing comfortably now. (5) Diabetes mellitus: Status: Chronic Assessment and plan: 6.2% in January with only metfomrin. Given this, I don't think we need regular fingerticks. 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 Work with CM on options History of Present Illness History of Present Illness Chief Complaint: low sodium Narrative: 82 yo F with a history of traumatic quadriplegia, suprapubic catheter, well controlled type 2 DM and hypothyroidism who was admitted twice in the past month with infections associated with hyponatremia, presented today after her PCP called her with a laboratory result of sodium of 124. She was first admitted 01/23 - 01/31 and treated for pneumonia and UTI. She was given antibiotics and steroid taper. At that time she was mildly hypnatremic to 130 and she normalized with treatment of the pneumonia without any salt/saline therapy. At that visit, Dr. Loera was concerned for interstitial lung disease and pleural thickening and PET/CT ordered as outpatient. SHe was admitted again 02/05 - 02/09/23 with a fever and sodium to 127. She was treated for a fungal UTI with fluconazole. At that visit she was treated with two 250mg boluses of hypertonic saline along with fluid restriction and salt tablets. Her sodium normalized to 137 on discharge. She was not given salt tablets as an outpatient but fluid restriction of 1500ml was given. When asked about her fluid intake, she says she drinks plenty of water, but hasn't been eating much in the past 2 days. She has some nausea and fatigue, but otherwise feels the same as normal. Review of Systems Constitutional Constitutional: Denies chills, Reports fatigue, Denies fever(s), Denies headache(s), Reports poor appetite, Denies weakness, Denies weight gain and Denies weight loss Eyes Eyes: Denies change in vision and Denies irritation ENT Ears, Nose, Mouth, and Throat: Denies dizziness, Denies headache(s), Denies nasal congestion, Denies nasal discharge and Denies sore throat Cardiovascular Cardiovascular: Denies chest pain, Denies leg edema, Denies palpitations and Denies dyspnea Respiratory Respiratory: Denies cough, Denies excessive phlegm production, Denies dyspnea and Denies wheezing Gastrointestinal Gastrointestinal: Denies abdominal pain, Denies heartburn, Denies diarrhea and Denies vomiting Genitourinary Genitourinary: Denies hematuria and Denies dysuria Musculoskeletal Musculoskeletal: Denies joint swelling Integumentary/Breasts Skin/Breast: Denies rash and Denies skin ulcer Neurologic Neurologic: Denies confusion, Denies dizziness, Denies headache(s), Denies convulsions, Denies sensory deficit and Denies weakness Psychiatric Psychiatric: Denies confusion and Denies mood swings Endocrine Endocrine: Reports fatigue and Denies palpitations Hematologic/Lymphatic Hematologic/Lymphatic: Denies easy bleeding Allergic/Immunologic Allergic/Immunologic: Denies wheezing PFSH All Active Problems (Updated 02/14/23 @ 00:41 by Armen Parker) Discharge planning issues (Acute) DVT prophylaxis (Acute) Suprapubic catheter (Acute) Pleural thickening (Acute) Pleural effusion (Acute) Pressure ulcer (Acute) Advanced care planning/counseling discussion (Acute) Quadriplegia (Acute) Palliative care encounter (Acute) Constipation (Acute) Shortness of breath (Acute) Pneumonia (Acute) Acute UTI (Acute) Spinal stenosis, lumbar (Acute) Primary malignant neoplasm of breast (Acute) Neurogenic claudication (Acute) Hypothyroidism (Chronic) Hypertension (Chronic) Constipation due to neurogenic bowel (Acute) Benign neoplasm of colon (Acute) Autonomic dysreflexia (Acute) Arm edema (Acute) Nail dystrophy (Acute) UTI (urinary tract infection) (Acute) Transaminitis (Acute) Bladder spasm (Acute) COVID-19 ruled out (Acute) Neuropathic pain of finger of right hand (Acute) Fungal dermatitis (Acute) Chronic suprapubic catheter (Chronic) Hypomagnesemia (Acute) Acute UTI (Acute) Infiltrate of lung present on imaging of chest (Acute) UTI (urinary tract infection) (Acute) Hyperlipemia (Chronic) Intracranial aneurysm (Chronic) AAA (abdominal aortic aneurysm) (Chronic) Suprapubic catheter (Chronic) Diabetes mellitus (Chronic) Neurogenic bladder (Chronic) Paraplegia (Chronic) Medical History Cervical disc disorder CTS (carpal tunnel syndrome) left wrist ESBL (extended spectrum beta-lactamase) producing bacteria infection History of breast cancer Interstitial lung disease Surgical History H/O breast surgery H/O cervical spine surgery S/P cholecystectomy S/P rotator cuff repair S/P trigger finger release S/P tubal ligation Social History Smoking/Tobacco Use Status: Former Tobacco Use Quit Date: 08/17/06 Pack-years: 40 Smoking risk assessment performed?: Yes Alcohol Intake: never Drug use: Never Substance use type: does not use Housing: house Current gender identity: female Do you feel safe at home: Yes Do you feel safe in your relationship?: Yes Additional Social history: lives with her in [place], [place]. Has home health. Meds Allergies and Home Medications Allergies Allergy/AdvReac Type Severity Reaction Status Date / Time ibuprofen AdvReac Mild Nausea Unverified 02/05/23 13:14 Home Medications Medication Instructions Recorded Confirmed Type aspirin 81 mg tablet,delayed 81 mg PO DAILY 06/23/18 02/13/23 History release atorvastatin 10 mg tablet 10 mg PO HS 06/23/18 02/13/23 History metformin 500 mg tablet 1,000 mg PO BID 06/23/18 02/13/23 History multivitamin 1 tab PO DAILY 06/23/18 02/13/23 History calcium carbonate 500 mg-vitamin 1 tab PO BID 06/16/19 02/13/23 History D3 10 mcg (400 unit) tablet (Calcium 500 With D) citric ac 1980.6 mg-glucono 59.4 30 ml irrigation DAILY 12/21/19 02/13/23 History mg-mag carb 980.4 mg/30 mL irrig.soln (Renacidin) baclofen 10 mg tablet 20 mg PO TID 06/24/22 02/13/23 History acetaminophen 500 mg tablet 1,000 mg PO TID PRN 08/25/22 02/13/23 History cyanocobalamin (vitamin B-12) 1,000 mcg PO DAILY 08/25/22 02/13/23 History 1,000 mcg capsule d-mannose 500 mg capsule (AZO 1,000 mg PO BID 08/25/22 02/13/23 History D-Mannose) gabapentin 400 mg capsule 400 mg PO BID 08/25/22 02/13/23 History (Neurontin) gabapentin 600 mg tablet 600 mg PO HS 08/25/22 02/13/23 History lidocaine 5 % topical cream 1 applic topical TID PRN 08/25/22 02/13/23 History magnesium oxide 400 mg PO BID 08/25/22 02/13/23 History levothyroxine 75 mcg tablet 75 mcg PO QAM 12/03/22 02/13/23 History omeprazole 20 mg tablet,delayed 20 mg PO DAILY 12/03/22 02/13/23 History release sennosides 8.6 mg tablet (senna) 8.6 mg PO QHS 12/03/22 02/13/23 History ondansetron 4 mg disintegrating 4 mg PO Q8H PRN #10 tabs 12/05/22 02/13/23 Rx tablet lisinopril 2.5 mg tablet 2.5 mg PO DAILY #30 tabs 01/31/23 02/13/23 Rx mirabegron 50 mg tablet,extended 50 mg PO DAILY 02/06/23 02/13/23 History release 24 hr (Myrbetriq) fluconazole 200 mg tablet 200 mg PO DAILY #14 tabs 02/09/23 02/13/23 Rx Exam Narrative Exam Narrative: GEN: Alert and oriented x 3, pleasant and cooperative, gives linear history. No acute distress at rest. HEENT: Head atraumatic. Conjunctiva clear, no icterus. PEERL, EOMI. no rhinorrhea. MMM, OP benign. Neck is supple with no masses or lymphadenopathy, trachea midline LUNGS: CTAB with normal effort CV: RRR with no murmurs, gallops, or rubs. ABD: +BS, soft, NT/ND EXT: no cyanosis, clubbing. trace myles ankle edema MSK: No joint redness or swelling NEURO: CN 2-12 grossly intact. No movement in legs, arms/hands contracted symmetrically bilaterally. Normal speech and coordination. intermittent slight bouncing tremor right arm. SKIN: No rashes or open wounds (I did not get a full view of sacral area, but was assessed at nursing intake). PSYCH: normal mood and affect Results Imaging Chest x-ray: report reviewed (Interstitial infiltrates and/or edema.) and image reviewed (similar to 02/08 CXR) EKG: image reviewed (NSR, nl axis, intervals, no ischemic changes, one PVC) Labs 02/13/23 20:00 02/13/23 20:00 Labs: Laboratory Results - last 24 hr 02/13/23 02/13/23 02/13/23 20:00 20:00 21:10 WBC 8.18 RBC 3.44 L Hgb 11.2 Hct 32.3 L MCV 94 D MCH 32.6 MCHC 34.7 D RDW 12.9 Plt Count 177 MPV 10.2 VBG Lactate 1.4 Sodium 124 L Potassium 4.9 Chloride 91 L Carbon Dioxide 27.0 Anion Gap 6.0 BUN 8 Creatinine 0.6 Est GFR (CKD-EPI 2020) 89.56 Glucose 101 Calcium 8.5 Total Bilirubin 0.6 AST 18 ALT 26 Alkaline Phosphatase 44 L Total Protein 6.7 Albumin 3.2 L Urine Color Urine Clarity Urine pH Ur Specific [place] Urine Protein Urine Ketones Urine Blood Urine Nitrite Urine Bilirubin Urine Urobilinogen Ur Leukocyte Esterase Urine RBC Urine WBC Ur Epithelial Cells Urine Crystals Urine Bacteria Urine Casts Urine Mucus Ur Culture Indicated? Ur Random Sodium Urine Glucose COVID-19 Source SARS-CoV-2 (PCR) 02/13/23 02/13/23 02/13/23 21:35 21:40 21:40 WBC RBC Hgb Hct MCV MCH MCHC RDW Plt Count MPV VBG Lactate Sodium Potassium Chloride Carbon Dioxide Anion Gap BUN Creatinine Est GFR (CKD-EPI 2020) Glucose Calcium Total Bilirubin AST ALT Alkaline Phosphatase Total Protein Albumin Urine Color Yellow Urine Clarity Clear Urine pH 7.0 Ur Specific [place] 1.015 Urine Protein 30 H Urine Ketones Negative Urine Blood Moderate H Urine Nitrite Negative Urine Bilirubin Negative Urine Urobilinogen 0.2 Ur Leukocyte Esterase Negative Urine RBC 3-5 H Urine WBC Negative Ur Epithelial Cells Few Urine Crystals Negative Urine Bacteria Rare Urine Casts Negative Urine Mucus Negative Ur Culture Indicated? No Ur Random Sodium 67 Urine Glucose Negative COVID-19 Source Nasal/Nares SARS-CoV-2 (PCR) Negative Last Vital Signs Temp 37.1 C 02/13/23 23:05 Pulse 68 02/13/23 23:05 Resp 15 02/13/23 23:05 BP 157/73 H 02/13/23 23:05 Pulse Ox 94 02/13/23 23:05 Time Spent Time spent with Patient: 55-74 minutes Time was spent: preparing to see the patient(eg.review tests), obtaining and/or reviewing separately [facility], ordering medications,tests, procedures, referring, communicating with other health primary care md, indepentently interpreting results and counseling the patient
[2023-02-14 00:46] LABS: Anion Gap 5.4 mmol/L (3-11); BUN 8 mg/dL (7-18); CO2 25.6 mmol/L (21.0-32.0); CREATININE 0.5 mg/dL (0.55-1.02); Calcium 8.3 mg/dL (8.5-10.1); Chloride 94 mmol/L (98-107); Estimated GFR 93.59 (mL/min/1.73m2); Glucose 106 mg/dL (74-106); Potassium 4.6 mmol/L (3.5-5.1); Sodium 125 mmol/L (136-145)
[2023-02-14 06:42] VITALS: BP 183/88; PULSE 78; RESP 16; TEMP 36.9; O2SAT 94
[2023-02-14 06:42] LABS: Platelet Count 165 10^3/uL (130-400)
[2023-02-14 08:15] LABS: Anion Gap 5.4 mmol/L (3-11); CO2 26.6 mmol/L (21.0-32.0); Chloride 94 mmol/L (98-107); Potassium 4.7 mmol/L (3.5-5.1); Sodium 126 mmol/L (136-145)
--- NOTE | 2023-02-14 08:43 | INITIAL_ITS ---
Date of service: 02/14/23 Time of Service: 08:43 Care Management Initial Assmt Initial Assessment REASON FOR HOSPITALIZATION:: hyponatremia PREVIOUS FUNCTIONAL STATUS/SOCIAL/FAMILY SUPPORTS:: Gerardo lives in a single family home in [place] with her Marcos. Their six children live nearby and are supportive of the couple. 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 She has [facility], highest needs and has 2 caregivers (55 hours/week) as well as strong family support. Each child visits at least once a week. Daughter Luci provides all of her care on Saturdays as that is the one day a week they do not have caregiver coverage. Gerardo also has LNAs from home health who bathe her and a nurse comes periodically. CURRENT FUNCTIONAL STATUS:: Gerardo was sitting up in bed visiting with her daughter Luci and son Emmanuel when CM met with her. Her children had many questions which CM answered. Dr. Bey also met with them and provided information about her condition, treatment and plan of care, which they stated they appreciated. Luci informed Cm that they believe they need more caregiver hours at home. Gerardo has developed 2-3 decubitus ulcers recently and they feel it is because she is not always turned as often as she should be. When asked, they were able to confirm that she does have an alternating pressure mattress on her bed at home. ADVANCE DIRECTIVES:: none on file but reportedly has completed and daughter is [facility] Has patient been provided with info about the portal/API?: No Did the patient sign up for the portal?: No CODE STATUS:: Full Code INSURANCE COVERAGE / FINANCIAL ISSUES:: [place] National Medicare Supplement, [place], [place], [place] CURRENT HOME/COMMUNITY SERVICES/EQUIPMENT:: [employer] lift, hospital bed, wheelchair, ramps, and shower chair. Family provides some of her care. Gerardo also has caregivers through [facility] and Home Health nursing and LNAs. support. PRIMARY CARE PHYSICIAN:: Nida Farooq POTENTIAL DISCHARGE NEEDS:: Follow up appointment with PCP, resumption of HH services and coordination of transport home. PATIENT/FAMILY EDUCATION NEEDS:: Review of discharge instructions, activity. restrictions (fluid intake), follow up plan and and discuss Ask Me Three. TRANSPORTATION:: Via ambulance coordinated by CM. PLAN:: Gerardo will be discharged home with a resumption of Home Health and caregiver services when medically cleared by provider. She will follow up with her PCP and plan of care as instructed following discharge. She will be transported home by ambulance coordinated by CM when ready. CM will continue to support patient and discharge planning needs. PFSH All Active Problems (Updated 02/14/23 @ 00:41 by Armen Parker) Discharge planning issues (Acute) DVT prophylaxis (Acute) Suprapubic catheter (Acute) Pleural thickening (Acute) Pleural effusion (Acute) Pressure ulcer (Acute) Advanced care planning/counseling discussion (Acute) Quadriplegia (Acute) Palliative care encounter (Acute) Constipation (Acute) Shortness of breath (Acute) Pneumonia (Acute) Acute UTI (Acute) Spinal stenosis, lumbar (Acute) Primary malignant neoplasm of breast (Acute) Neurogenic claudication (Acute) Hypothyroidism (Chronic) Hypertension (Chronic) Constipation due to neurogenic bowel (Acute) Benign neoplasm of colon (Acute) Autonomic dysreflexia (Acute) Arm edema (Acute) Nail dystrophy (Acute) UTI (urinary tract infection) (Acute) Transaminitis (Acute) Bladder spasm (Acute) COVID-19 ruled out (Acute) Neuropathic pain of finger of right hand (Acute) Fungal dermatitis (Acute) Chronic suprapubic catheter (Chronic) Hypomagnesemia (Acute) Acute UTI (Acute) Infiltrate of lung present on imaging of chest (Acute) UTI (urinary tract infection) (Acute) Hyperlipemia (Chronic) Intracranial aneurysm (Chronic) AAA (abdominal aortic aneurysm) (Chronic) Suprapubic catheter (Chronic) Diabetes mellitus (Chronic) Neurogenic bladder (Chronic) Paraplegia (Chronic) Medical History Cervical disc disorder CTS (carpal tunnel syndrome) left wrist ESBL (extended spectrum beta-lactamase) producing bacteria infection History of breast cancer Interstitial lung disease Surgical History H/O breast surgery H/O cervical spine surgery S/P cholecystectomy S/P rotator cuff repair S/P trigger finger release S/P tubal ligation Social History Smoking/Tobacco Use Status: Former Tobacco Use Quit Date: 08/17/06 Pack-years: 40 Smoking risk assessment performed?: Yes Alcohol Intake: never Drug use: Never Substance use type: does not use Housing: house Current gender identity: female Do you feel safe at home: Yes Do you feel safe in your relationship?: Yes Additional Social history: lives with her in [place], [place]. Has home health. Readmission Within the Past 30 Days Yes or No: Yes Date of First Admission Date of 1st Admission: 02/08/23 Date of this Admission Date of Admission: 02/13/23 This admission was: Through ED Office Visit Since 1st Admission Have you seen your PCP in the office since discharge?: No Had an appointment Been Scheduled?: No I. Interview patient and/or Family Difficulty reaching your doctor or getting an office appt?: No Have you had trouble purchasing/ or taking medication?: No Have you had trouble with getting meals at home?: No Did you call your physician beore you came to the ED?: Yes Did your physician tell you to come in?: Yes If the patient had a VNA ordered Did the patient have a VNA order?: Yes Did you call the VNA before you came?: No Did the VNA tell you to come to the hospital?: No Assessment for Readmission Summary of readmission circumstances, based upon interviews: Gerardo has been hospitalized 3 times in the month of January. The first time she was hospitalized for 8 days for pneumonia in the setting of interstitial lung disease. The second admission occurred 5 days later and was for acute hyponatremia. The third (current) admission is for hyponatremia also. When questioned, the family indicated that no fluid restriction was advised at discharge, however a review of her discharge packet reveals a recommended limit of 1500 ml/day. It is doubtful the guideline was followed.
[2023-02-14] MEDS: Aspirin E.C. 81 MG TABEC PO (09:08)
[2023-02-14] MEDS: Baclofen 10 MG TAB 20 MG PO ×3 (09:09→19:56)
[2023-02-14] MEDS: Calcium 600mg/Vit D 200U TAB 1 TAB PO ×2 (09:09→19:56)
[2023-02-14] MEDS: Enoxaparin 40 MG/0.4 ML SYR SC (09:10)
[2023-02-14] MEDS: Gabapentin 400 MG CAP PO ×2 (09:10→11:08)
[2023-02-14] MEDS: Levothyroxine 75 MCG TAB PO (09:10)
[2023-02-14] MEDS: Cyanocobalamin 500 MCG TAB 1000 MCG PO (09:10)
[2023-02-14] MEDS: Mirabegron 50 MG TABCR PO (09:11)
[2023-02-14] MEDS: Lisinopril 2.5 MG TAB PO (09:11)
[2023-02-14] MEDS: Magnesium Oxide 400 MG TAB PO ×2 (09:11→19:56)
[2023-02-14] MEDS: metFORMIN 500 MG TAB 1000 MG PO ×2 (09:11→16:58)
[2023-02-14] MEDS: Salt Supplement (BUFFERED) TAB 1 TAB PO (09:12)
[2023-02-14] MEDS: Omeprazole 20 MG CAPCR PO (09:12)
[2023-02-14] MEDS: Multivitamin TAB 1 TAB PO (09:12)
[2023-02-14] MEDS: Fluconazole 100 MG TAB 200 MG PO (09:27)
--- NOTE | 2023-02-14 12:26 | W.PM.PROGNOT ---
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 Urine osmolality, plasma osmolality, urine electrolytes, urea, creatinine have been ordered. WE will restrict her fluids to 1 liter or less, meanwhile I will ask for copies of her prior labs over past year from [facility] to see what her baseline sodium was over the past year. I will also ask for results of her brain scans from [facility]. Cortisol level was sent out as well. She does not appear to be hypervolemic nor hypovolemic and therefore workup for euvolemic hyponatremia is appropriate. Her calculated osmolality is 266; urine osmolality and measured serum osmolality is pending. I do not feel that salt tablets have any role to play in controlling her sodium and will only lead to further water retention. Professional time spent interviewing and examining patient, discussion of goals of care with hospital team (care management, nursing and consulting professionals) was 60 minutes. (2) Hypertension: Status: Chronic Assessment and plan: Mildly elevated now, continue lisinopril (3) Hypothyroidism: Status: Chronic Assessment and plan: This can contribute to low sodium, but TSH was normal earlier this month. Continue levothyroxine. (4) Interstitial lung disease: Assessment and plan: Chest XR looks like this is stable. Assessment with PET scan was orderd as outpatient study at time of her last discharge and family apparently has not heard from [facility]. I told them that they probably can get this done at [facility]. Breathing is unlabored and she is on room air w/ SPO2 OF 98%. She also has pleural plaques. (5) Diabetes mellitus: Status: Chronic Assessment and plan: she was placed on her home dose of metformin; no glucose monitoring was ordered. I will have nursing check glucose at least bid but have not ordered any insulin sliding scale; if her glucose rises over 180 then I will add insulin sensitive novolog Qualifiers: Diabetes mellitus complication status: without complication Diabetes mellitus remote computer terminal operator insulin use: without remote computer terminal operator use Diabetes mellitus type: type 2 Qualified Code(s): E11.9 - Type 2 diabetes mellitus without complications (6) DVT prophylaxis: Status: Acute Assessment and plan: LMWH (7) Discharge planning issues: Status: Acute Assessment and plan: With three admissions this month and significant care needs raise the question of SNF placement. Work with CM on options, however, patient and her family prefer return to her home. Subjective Subjective Interval history since last seen: Patient was admitted last night d/t hyponatremia found on ouptatient follow up labs. Her PCP office in [facility] called the family to inform them that her sodium was critically low. On evaluation in the ED last night her sodium was 124. During her most recent admission 02/05- 02/09/23 for acute hyponatremia Na 127 she was treated w/ couple doses of 3% saline and her fluids were restricted to 1 liter per day and she was put on salt tablets. Her sodium darline to 137 at the time of her discharge. Prior to that she was admitted to [facility] 01/23-01/31/23 for pneumonia and UTI. She has hx of traumatic cervical fracture and subsequent quadriplegia, neurogenic bladder. During that admission for pneuomonia she was found to have pleural plaques and interstitial lung disease. Dr. Ochoa was consulted and recommended outpatient CT/PET scan to evaluate the pleural plaques for possible mesothelioma. I met w/ her family this morning, daughter Sona, and son, Orestes. They seemed to be unaware of the ILD and pleural plaques. They are conerned about the recurrent hyponatremia and indicate that this seems to have just started over the past month. 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 They informed me that she has been followed by [facility] for brain aneurysm and has had multiple scans of her head. I told them that I would like to get results of those scans as SIADH may also be secondary to TBI or her aneurysms. Family is concerned that she has not been acting her normal self for past month, quieter, poor intake, anhedonia and not her usual conversant self. Her personality has changed. I told them that I would like to get her brain scans and if no recent MRI of her brain has been done, then I think this should be done as part of her SIADH workup. Exam Narrative Exam Narrative: Gerardo is alert, she seems to be oriented to person/place/circumstances and answers questions appropriately HEENT: she has moist mucous membranes, no exudates; normal facial mimetic muscle movement; no dysarthic speech Neck: no JVD, normal carotid pulses; scar over posterior cervical region c/w prior cervical fusion Lungs: fine cellophane dry rales, no rhonchi or wheezing, but overall diffusely diminshed breath sounds Heart: RRR, no murmur or rub Abdomen: soft, nontender, normal bowel sounds; suprapubic catheter draining clear yellow urine, she is leaking from her ostomy, skin around ostomy is reddened but no purulent drainage Extremities: multiple bruises from prior blood draws, iv's, no open sores; hands/wrists contracted legs: no open sores, feet and toes look ok; pedal pulses good Back/buttocks/sacrum: she has pressure ulcer over her sacrum w/out purulent drainage, surface layer is denuded and she has reddened skin ulcer appears stage 2 borderline 3, I do not see the fatty layer of skin yet Objective Last Vital Signs Temp 36.9 C 02/14/23 06:42 Pulse 78 02/14/23 06:42 Resp 16 02/14/23 06:42 BP 183/88 H 02/14/23 06:42 Pulse Ox 94 02/14/23 06:42 Laboratory Results - last 24 hr 02/13/23 02/13/23 02/13/23 20:00 20:00 21:10 WBC 8.18 RBC 3.44 L Hgb 11.2 Hct 32.3 L MCV 94 D MCH 32.6 MCHC 34.7 D RDW 12.9 Plt Count 177 MPV 10.2 VBG Lactate 1.4 Sodium 124 L Potassium 4.9 Chloride 91 L Carbon Dioxide 27.0 Anion Gap 6.0 BUN 8 Creatinine 0.6 Est GFR (CKD-EPI 2020) 89.56 Glucose 101 Calcium 8.5 Total Bilirubin 0.6 AST 18 ALT 26 Alkaline Phosphatase 44 L Total Protein 6.7 Albumin 3.2 L Urine Color Urine Clarity Urine pH Ur Specific [place] Urine Protein Urine Ketones Urine Blood Urine Nitrite Urine Bilirubin Urine Urobilinogen Ur Leukocyte Esterase Urine RBC Urine WBC Ur Epithelial Cells Urine Crystals Urine Bacteria Urine Casts Urine Mucus Ur Culture Indicated? Ur Random Sodium Urine Glucose COVID-19 Source SARS-CoV-2 (PCR) Add-On Test Request 02/13/23 02/13/23 02/13/23 21:35 21:40 21:40 WBC RBC Hgb Hct MCV MCH MCHC RDW Plt Count MPV VBG Lactate Sodium Potassium Chloride Carbon Dioxide Anion Gap BUN Creatinine Est GFR (CKD-EPI 2020) Glucose Calcium Total Bilirubin AST ALT Alkaline Phosphatase Total Protein Albumin Urine Color Yellow Urine Clarity Clear Urine pH 7.0 Ur Specific [place] 1.015 Urine Protein 30 H Urine Ketones Negative Urine Blood Moderate H Urine Nitrite Negative Urine Bilirubin Negative Urine Urobilinogen 0.2 Ur Leukocyte Esterase Negative Urine RBC 3-5 H Urine WBC Negative Ur Epithelial Cells Few Urine Crystals Negative Urine Bacteria Rare Urine Casts Negative Urine Mucus Negative Ur Culture Indicated? No Ur Random Sodium 67 Urine Glucose Negative COVID-19 Source Nasal/Nares SARS-CoV-2 (PCR) Negative Add-On Test Request 02/14/23 02/14/23 02/14/23 00:32 06:35 06:35 WBC RBC Hgb Hct MCV MCH MCHC RDW Plt Count 165 MPV VBG Lactate Sodium 125 L 126 L Potassium 4.6 4.7 Chloride 94 L 94 L Carbon Dioxide 25.6 26.6 Anion Gap 5.4 5.4 BUN 8 Creatinine 0.5 L Est GFR (CKD-EPI 2020) 93.59 Glucose 106 Calcium 8.3 L Total Bilirubin AST ALT Alkaline Phosphatase Total Protein Albumin Urine Color Urine Clarity Urine pH Ur Specific [place] Urine Protein Urine Ketones Urine Blood Urine Nitrite Urine Bilirubin Urine Urobilinogen Ur Leukocyte Esterase Urine RBC Urine WBC Ur Epithelial Cells Urine Crystals Urine Bacteria Urine Casts Urine Mucus Ur Culture Indicated? Ur Random Sodium Urine Glucose COVID-19 Source SARS-CoV-2 (PCR) Add-On Test Request 02/14/23 09:14 WBC RBC Hgb Hct MCV MCH MCHC RDW Plt Count MPV VBG Lactate Sodium Potassium Chloride Carbon Dioxide Anion Gap BUN Creatinine Est GFR (CKD-EPI 2020) Glucose Calcium Total Bilirubin AST ALT Alkaline Phosphatase Total Protein Albumin Urine Color Urine Clarity Urine pH Ur Specific [place] Urine Protein Urine Ketones Urine Blood Urine Nitrite Urine Bilirubin Urine Urobilinogen Ur Leukocyte Esterase Urine RBC Urine WBC Ur Epithelial Cells Urine Crystals Urine Bacteria Urine Casts Urine Mucus Ur Culture Indicated? Ur Random Sodium Urine Glucose COVID-19 Source SARS-CoV-2 (PCR) Add-On Test Request TNP Time Spent with Patient Time Spent with Patient: >50 minutes Time was spent: preparing to see the patient(eg.review tests), obtaining and/or reviewing separately [facility] hiistory, ordering medications,tests, procedures, referring, communicating with other health career law clerk (discussion w/ nursing, Dr. Parker), indepentently interpreting results, counseling the patient (and family including Sona and Orestes) and care coordination
[2023-02-14 14:34] LABS: Anion Gap 7.4 mmol/L (3-11); CO2 25.6 mmol/L (21.0-32.0); Chloride 93 mmol/L (98-107); Potassium 4.3 mmol/L (3.5-5.1); Sodium 126 mmol/L (136-145)
[2023-02-14 15:36] VITALS: BP 158/88; PULSE 77; RESP 18; TEMP 36.8; O2SAT 98
[2023-02-14] MEDS: Atorvastatin 10 MG TAB PO (21:20)
[2023-02-14] MEDS: Senna TAB 1 TAB PO (21:20)
[2023-02-14] MEDS: Gabapentin 600 MG TAB PO (21:20)
[2023-02-14 22:04] LABS: Osmolality, Urine 311 mOsm/kg (150-1150)
[2023-02-14 22:16] LABS: Osmolality Serum 259 mOsm/kg (275-295)
[2023-02-15 01:36] VITALS: BP 116/71; PULSE 77; RESP 18; TEMP 36.7; O2SAT 96
[2023-02-15] MEDS: Levothyroxine 75 MCG TAB PO (05:32)
[2023-02-15] MEDS: Enoxaparin 40 MG/0.4 ML SYR SC (07:20)
[2023-02-15] MEDS: metFORMIN 500 MG TAB 1000 MG PO ×2 (07:20→16:31)
[2023-02-15] MEDS: Omeprazole 20 MG CAPCR PO (07:20)
[2023-02-15] MEDS: Gabapentin 400 MG CAP PO ×2 (07:20→11:31)
[2023-02-15] MEDS: Baclofen 10 MG TAB 20 MG PO ×3 (07:25→21:08)
[2023-02-15] MEDS: Mirabegron 50 MG TABCR PO (07:25)
[2023-02-15] MEDS: Calcium 600mg/Vit D 200U TAB 1 TAB PO ×2 (07:25→21:09)
[2023-02-15] MEDS: Fluconazole 100 MG TAB 200 MG PO (07:25)
[2023-02-15] MEDS: Aspirin E.C. 81 MG TABEC PO (07:25)
[2023-02-15] MEDS: Cyanocobalamin 500 MCG TAB 1000 MCG PO (07:25)
[2023-02-15] MEDS: Lisinopril 2.5 MG TAB PO (07:25)
[2023-02-15] MEDS: Multivitamin TAB 1 TAB PO (07:25)
[2023-02-15] MEDS: Magnesium Oxide 400 MG TAB PO ×2 (07:26→21:08)
[2023-02-15 07:52] LABS: Anion Gap 8.9 mmol/L (3-11); BUN 9 mg/dL (7-18); CO2 24.1 mmol/L (21.0-32.0); CREATININE 0.5 mg/dL (0.55-1.02); Calcium 8.4 mg/dL (8.5-10.1); Chloride 93 mmol/L (98-107); Estimated GFR 93.59 (mL/min/1.73m2); Glucose 105 mg/dL (74-106); Potassium 4.8 mmol/L (3.5-5.1); Sodium 126 mmol/L (136-145)
[2023-02-15 15:08] VITALS: BP 114/70; PULSE 85; RESP 16; TEMP 37.7; O2SAT 95
[2023-02-15 16:07] LABS: Creatinine,Urine 33.49 mg/dL; Sodium, Urine 73 mmol/L
--- NOTE | 2023-02-15 16:42 | W.PM.PROGNOT ---
Date of Service Date of service: 02/15/23 Time of Service: 16:42 Assessment and Plan Assessment and plan (1) Hyponatremia: Status: Resolved Assessment and plan: urine electrolytes and urine osmolality and plasma osmolality are c/w SIADH. No role for salt tablets; will restrict her fluids to 1 liter per day. Her care givers say that they were restricting her to 1.5 liters per day but this was just counting free water and not all of her liquid intake. We will continue to monitor. I tried to get records from [facility] hospital yesterday but was not succcessful. It would be helpful to know what her baseline sodium levels were a year ago. Family seems to think that this has all developed in the past month. (2) Pressure ulcer: Status: Acute Assessment and plan: patient has a stage 2 borderline 3 pressure ulcer over her sacrum. I have requested wound care nursing consult. It does not look purulent. (3) Hypertension: Status: Chronic Assessment and plan: Mildly elevated now, continue lisinopril (4) Hypothyroidism: Status: Chronic Assessment and plan: This can contribute to low sodium, but TSH was normal earlier this month. Continue levothyroxine. (5) Interstitial lung disease: Assessment and plan: Chest XR looks like this is stable. Assessment with PET scan was orderd as outpatient study at time of her last discharge and family apparently has not heard from [facility]. I told them that they probably can get this done at [facility]. Breathing is unlabored and she is on room air w/ SPO2 OF 98%. She also has pleural plaques. for which Dr. Ochoa is concerned about mesothelioma d/t talc exposure years ago (6) Diabetes mellitus: Status: Chronic Assessment and plan: she was placed on her home dose of metformin; no glucose monitoring was ordered. I will have nursing check glucose at least bid but have not ordered any insulin sliding scale; if her glucose rises over 180 then I will add insulin sensitive novolog Qualifiers: Diabetes mellitus type: type 2 Diabetes mellitus termite renewal inspector insulin use: without termite renewal inspector use Diabetes mellitus complication status: without complication Qualified Code(s): E11.9 - Type 2 diabetes mellitus without complications (7) Yeast cystitis: Status: Acute Assessment and plan: patient is finishing a course of Diflucan from [facility] from 02/05/23 (8) DVT prophylaxis: Status: Acute Assessment and plan: LMWH (9) Discharge planning issues: Status: Acute Assessment and plan: With three admissions this month and significant care needs raise the question of SNF placement. Work with CM on options, however, patient and her family prefer return to her home but at the same time her expresses concerns that he is alone to care for her several hours out of the day. I think that SNF placement would be appropriate if patient and her family will accept this. Subjective Subjective Interval history since last seen: Heavenly complains of feeling tired all the time. Has no appetite, poor intake. Family is concerned that she keeps getting sent home after short hospital stays and then declines. I explained to them that she has SIADH and that we need to correct her hyponatremia w/ fluid restrictions but that we feel she has an underlying pulmonary process of possible lung cancer (she has pleuarl based plaques for which Dr. Ochoa is suspicous for mesothelioma) and she has ILD which has not been worked up. They want us to keep her here in the hospital until her PET/CT gets done. I explained that is not possible. Exam Narrative Exam Narrative: Heavenly looks fatigued, but is in no distress, she is alert, and she answers questions and adds to the commentary of her family but does not initiate unless asked specifically Lungs: no rhonchi or wheezing, she has some fine bibasilar dry cellophane like rales Heart: regular Abdomen: soft, nondistended, normal bowel sounds Suprapubic catheter: draining clear yellow urine Objective Last Vital Signs Temp 37.7 C H 02/15/23 15:08 Pulse 85 02/15/23 15:08 Resp 16 02/15/23 15:08 BP 114/70 02/15/23 15:08 Pulse Ox 95 02/15/23 15:08 Laboratory Results - last 24 hr 02/13/23 02/14/23 02/14/23 21:40 14:04 14:04 Sodium Potassium Chloride Carbon Dioxide Anion Gap BUN Creatinine Est GFR (CKD-EPI 2020) Glucose Serum Osmolality 259 L Calcium Cortisol 11 Urine Osmolality 311 Ur Random Creatinine Ur Random Sodium 02/15/23 02/15/23 07:10 15:35 Sodium 126 L Potassium 4.8 Chloride 93 L Carbon Dioxide 24.1 Anion Gap 8.9 BUN 9 Creatinine 0.5 L Est GFR (CKD-EPI 2021) 93.59 Glucose 105 Serum Osmolality Calcium 8.4 L Cortisol Urine Osmolality Ur Random Creatinine 33.49 Ur Random Sodium 73 Time Spent with Patient Time Spent with Patient: 25-34 minutes Time was spent: preparing to see the patient(eg.review tests), ordering medications,tests, procedures, referring, communicating with other health resident care supervisor, indepentently interpreting results, counseling the patient and care coordination
[2023-02-15 19:59] VITALS: BP 116/66; PULSE 78; RESP 16; TEMP 38.2; O2SAT 97
[2023-02-15 21:09] VITALS: TEMP 38.2
[2023-02-15] MEDS: Acetaminophen 500 MG TAB 1000 MG PO (21:09)
[2023-02-15] MEDS: Senna TAB 1 TAB PO (21:09)
[2023-02-15] MEDS: Gabapentin 600 MG TAB PO (21:10)
[2023-02-15] MEDS: Atorvastatin 10 MG TAB PO (21:10)
[2023-02-15 22:09] VITALS: TEMP 37.2
[2023-02-16] MEDS: Levothyroxine 75 MCG TAB PO (06:41)
[2023-02-16] MEDS: Omeprazole 20 MG CAPCR PO (06:41)
[2023-02-16 07:08] LABS: Anion Gap 7.3 mmol/L (3-11); BUN 11 mg/dL (7-18); CO2 25.7 mmol/L (21.0-32.0); CREATININE 0.6 mg/dL (0.55-1.02); Calcium 8.4 mg/dL (8.5-10.1); Chloride 91 mmol/L (98-107); Estimated GFR 89.56 (mL/min/1.73m2); Glucose 109 mg/dL (74-106); Potassium 4.1 mmol/L (3.5-5.1)
[2023-02-16 07:11] LABS: Sodium 124 mmol/L (136-145)
[2023-02-16 07:30] VITALS: BP 154/77; PULSE 74; RESP 16; TEMP 37.2; O2SAT 96
[2023-02-16] MEDS: Mirabegron 50 MG TABCR PO (08:16)
[2023-02-16] MEDS: Cyanocobalamin 500 MCG TAB 1000 MCG PO (08:16)
[2023-02-16] MEDS: Gabapentin 400 MG CAP PO ×2 (08:16→11:17)
[2023-02-16] MEDS: Magnesium Oxide 400 MG TAB PO ×2 (08:16→21:05)
[2023-02-16] MEDS: Lisinopril 2.5 MG TAB PO (08:16)
[2023-02-16] MEDS: Calcium 600mg/Vit D 200U TAB 1 TAB PO ×2 (08:16→21:06)
[2023-02-16] MEDS: Baclofen 10 MG TAB 20 MG PO ×3 (08:16→21:05)
[2023-02-16] MEDS: Multivitamin TAB 1 TAB PO (08:16)
[2023-02-16] MEDS: Fluconazole 100 MG TAB 200 MG PO (08:17)
[2023-02-16] MEDS: metFORMIN 500 MG TAB 1000 MG PO ×2 (08:17→16:13)
[2023-02-16] MEDS: Enoxaparin 40 MG/0.4 ML SYR SC (08:17)
[2023-02-16] MEDS: Aspirin E.C. 81 MG TABEC PO (08:17)
[2023-02-16 14:15] LABS: Anion Gap 6.4 mmol/L (3-11); BUN 11 mg/dL (7-18); CO2 24.6 mmol/L (21.0-32.0); CREATININE 0.7 mg/dL (0.55-1.02); Calcium 8.3 mg/dL (8.5-10.1); Chloride 91 mmol/L (98-107); Glucose 113 mg/dL (74-106)
[2023-02-16 14:18] LABS: Sodium 122 mmol/L (136-145)
--- NOTE | 2023-02-16 14:19 | NUR.NOTE ---
Nursing Note: Critical Na (122) received from lab. Hospitalist & pt's primary RN notified.
--- NOTE | 2023-02-16 14:31 | W.PM.PROGNOT ---
Date of Service Date of service: 02/16/23 Time of Service: 14:31 Assessment and Plan Assessment and plan (1) Hyponatremia: Status: Resolved Assessment and plan: ? SIADH. Getting worse on fluid restriction. D/c lisinopril. Will trial a dose of lasix as does have evidence of edema. I am also obtaining a morning cortisol. Will discuss with nephrology once more information and response to furosemide is known. (2) Pressure ulcer: Status: Acute Assessment and plan: Sacral ulcers present on admission. Await wound care consult. (3) Hypertension: Status: Chronic Assessment and plan: D/c lisinopril due to low sodium. Start amlodipine. Monitor BP. (4) Hypothyroidism: Status: Chronic Assessment and plan: TSH was 1.39 on 02/05/23. Continue levothyroxine at current dose. (5) Interstitial lung disease: Assessment and plan: PET CT was supposed to have been arranged via [facility]; however, [facility] denied having received the orders. I will follow up with Dr. Ochoa about it. PET CT was ordered for pleural thickening and concerns for mesothelioma (h/o talc exposure). (6) Diabetes mellitus: Status: Chronic Assessment and plan: Continue metformin. Qualifiers: Diabetes mellitus type: type 2 Diabetes mellitus custodial insulin use: without adjunct faculty for medical terminology use Diabetes mellitus complication status: without complication Qualified Code(s): E11.9 - Type 2 diabetes mellitus without complications (7) Yeast cystitis: Status: Acute Assessment and plan: Continue fluconazole. (8) DVT prophylaxis: Status: Acute Assessment and plan: SC enoxaparin (9) Discharge planning issues: Status: Acute Assessment and plan: Full code. Palliative care consulted. The patient is not interested in going to SNF at this time. Subjective Subjective Interval history since last seen: Ms Almaraz states she feels tired. She denies dizziness, headache, visual changes, CP, SOB, nausea. She is thirsty. She is not hungry. Family is concerned about poor PO intake. Daughter and son were at bedside when I came to visit the patient. Their concerns were that they had not heard about the PET scan from [facility]. When our typing secretary called there, that order had not been received. We are following up with Dr Ochoa's office to find out what happened. She does have follow up with Dr Ochoa on 03/02. Other concerns: air mattress that was ordered today for healing of pressure wounds; Recommendations on how to best get Ms Almaraz to [facility] for follow up appointments - in her wheelchair or the ambulance. Will she be allowed to be in a wheelchair/to sit on discharge? I have advised that wound care has been consulted and that we will make those recommendations at the time of discharge. We discussed the low sodium and how I am ordering additional testing. The patient says that she got the decubitous wounds when she went on a family reunion and spent a prolonged period of time in her wheel chair. Family expresses concerns about the patient not having anyone that can turn her or clean her up at home at night. Exam Narrative Exam Narrative: General: Pleasant weak/tired-appearing elderly female who is A&Ox3, resting comfortably in bed, contracted BUEs HEENT: EOMI, MMM, thrush Heart: RRR, no m/r/g Lungs:CTAB anteriorly Abdomen: soft, nontender, nondistended Extremities: trace edema BLEs symmetrically; no lesions on B feet Objective Last Vital Signs Temp 37.2 C 02/16/23 07:30 Pulse 74 02/16/23 07:30 Resp 16 02/16/23 07:30 BP 154/77 H 02/16/23 07:30 Pulse Ox 96 02/16/23 07:30 Laboratory Results - last 24 hr 02/15/23 02/16/23 02/16/23 15:35 06:50 13:58 Sodium 124 L 122 L* Potassium 4.1 4.0 Chloride 91 L 91 L Carbon Dioxide 25.7 24.6 Anion Gap 7.3 6.4 BUN 11 11 Creatinine 0.6 0.7 Est GFR (CKD-EPI 2020) 89.56 86.30 Glucose 109 H 113 H Calcium 8.4 L 8.3 L Ur Random Creatinine 33.49 Ur Random Sodium 73 Time Spent with Patient Time Spent with Patient: 35-49 minutes Time was spent: preparing to see the patient(eg.review tests), obtaining and/or reviewing separately otained hiistory, ordering medications,tests, procedures, referring, communicating with other health child day care provider, indepentently interpreting results, counseling the patient and care coordination
[2023-02-16] MEDS: Furosemide 20 MG/2 ML VIAL IVP (14:36)
[2023-02-16 15:09] VITALS: BP 116/66; PULSE 75; RESP 16; TEMP 37.5; O2SAT 96
--- NOTE | 2023-02-16 20:22 | PDOC.CMPRO ---
Date of service: 02/16/23 Time of Service: 20:22 Care Management Progress Note Progress Note Text Progress Note Text: S/O:Gerardo was siting up in bed visiting with her daughter Luci and one of her sons when CM met with her. She appeared sleepy and kept closing her eyes during the conversation. Luci expressed concern about several things, First she identified that Gerardo was admitted with pressure ulcers yet neither a specialty bed or overlay mattress had been ordered. (One was ordered today). She also expressed concern about the fact that her father is elderly and frail and is the only person at home with her at night. He is unable to turn her independently. Luci and her brother identified the need for additional support at home especially with maintaining a q2h turning schedule. They also verbalized their desire for their mother to go to a SNF. JOCELYN explained that so far, Gerardo has not been willing to go to any facility. Until or unless she agrees, that cannot happen. JOCELYN also reminded them that Gerardo has [facility], highest needs. Her caregiver dollars could be used for placement in an AFC home or in buttermaker continuous churn care if they do not feel able to care for her at home anymore. JOCELYN suggested they discuss the situation with Gerardo's [facility] shelter case manager. Concerns were also raised about the treatment of her hyponatremia. Luic asked if her mother could be transferred to [facility] for a second opinion. CM suggested she discuss that with the provider, but generally, if a family wishes to pursue that option, it is done independently. As Gerardo does not require a higher level of care and given the current bed shortage, it is unlikely that [facility] would accept her in transfer. Gerardo remains a full code. A Pallaitive Consult has been ordered to review goals of care and code status. Dr. Curtis met with the family and addressed all of their concerns, answered all of their questions and explained her plan of care. A: Gerardo is an 82 year old woman admitted on 02/14/23 with hyponatremia P:?Expect that Gerardo will be discharged home with a resumption of Home Health and caregiver services when medically cleared by provider.? She will follow up with her PCP and plan of care as instructed following discharge.? She will be transported home by ambulance coordinated by CM .? CM will continue to support patient and discharge planning needs.
[2023-02-16] MEDS: Senna TAB 1 TAB PO (21:05)
[2023-02-16] MEDS: Gabapentin 600 MG TAB PO (21:05)
[2023-02-16] MEDS: Atorvastatin 10 MG TAB PO (21:05)
[2023-02-16 23:00] LABS: Sodium 122 mmol/L (136-145)
[2023-02-16 23:37] VITALS: BP 109/63; PULSE 75; RESP 18; TEMP 37.6; O2SAT 94
--- NOTE | 2023-02-17 | DI.RAD_ITS ---
Exam(s) XR PORTABLE CHEST AP EXAM: XR PORTABLE CHEST AP CLINICAL HISTORY: fever TECHNIQUE: 2D digital imaging was performed. COMPARISON: CR XR PORTABLE CHEST AP from 02/05/2023 CR,XR XR PORTABLE CHEST AP from 02/08/2023 CR,XR XR PORTABLE CHEST AP from 02/13/2023 FINDINGS: LUNGS: Fibrotic changes. No focal consolidation. No pleural abnormality seen. HEART: Mildly enlarged. AORTA: Normal diameter. Calcification at arch. BONES: Hardware in cervical spine. Cysts severe degenerative changes of the right shoulder. Soft tissues: Unremarkable. IMPRESSION: No acute findings. Chronic interstitial changes. DATA REPOSITORY: RADIATION DOSE DELIVERED:
[2023-02-17] MEDS: Levothyroxine 75 MCG TAB PO (05:54)
[2023-02-17 07:10] VITALS: BP 130/74; PULSE 81; RESP 18; TEMP 38.5; O2SAT 93
[2023-02-17] MEDS: Baclofen 10 MG TAB 20 MG PO ×3 (09:27→20:43)
[2023-02-17] MEDS: Calcium 600mg/Vit D 200U TAB 1 TAB PO ×2 (09:27→20:43)
[2023-02-17 09:28] VITALS: TEMP 37.4
[2023-02-17] MEDS: Multivitamin TAB 1 TAB PO (09:28)
[2023-02-17] MEDS: amLODIPine 2.5 MG TAB PO (09:28)
[2023-02-17] MEDS: metFORMIN 500 MG TAB 1000 MG PO ×2 (09:28→17:16)
[2023-02-17] MEDS: Acetaminophen 500 MG TAB 1000 MG PO (09:28)
[2023-02-17] MEDS: Fluconazole 100 MG TAB 200 MG PO (09:28)
[2023-02-17] MEDS: Gabapentin 400 MG CAP PO ×2 (09:29→14:47)
[2023-02-17] MEDS: Omeprazole 20 MG CAPCR PO (09:29)
[2023-02-17] MEDS: Aspirin E.C. 81 MG TABEC PO (09:29)
[2023-02-17] MEDS: Enoxaparin 40 MG/0.4 ML SYR SC (09:29)
[2023-02-17] MEDS: Mirabegron 50 MG TABCR PO (09:29)
[2023-02-17] MEDS: Cyanocobalamin 500 MCG TAB 1000 MCG PO (09:29)
--- NOTE | 2023-02-17 09:36 | DI.VRAD_ITS ---
PROCEDURE INFORMATION: Exam: XR Chest Exam date and time: 02/17/2023 9:13 AM Age: 82 years old Clinical indication: Fever TECHNIQUE: Imaging protocol: Radiologic exam of the chest. Views: 1 view. COMPARISON: CR XR PORTABLE CHEST AP 02/13/2023 9:01 PM FINDINGS: Lungs: Chronic hyperinflation. Chronic mild upper lobe emphysema and reticulated upper lobe subpleural thin interstitial densities Pleural spaces: Normal. Heart/Mediastinum: Normal heart and cardio-mediastinal silhouette. Vasculature: Normal pulmonary vessels and width of the vascular pedicle. Bones/joints: Lower cervical spine fixation hardware. Bilateral shoulder degenerative change. Other findings: Aortosclerosis. IMPRESSION: 1. No acute findings or significant interval change. 2. Suspected emphysema and mild upper lobe subpleural fibrosis. 3. Aortosclerosis. Dictated and Authenticated by: Maverick Mukherjee MD. Ordering:DAKOTA Aguilar MD
[2023-02-17 10:44] LABS: Bilirubin Small (Negative); Blood Negative (Negative); Clarity Sl Cloudy (Clear); Glucose Negative (Negative); Ketones 15 mg/dL (Negative); Leukocyte Esterase Trace (Negative); Nitrite Negative (Negative); Urobilinogen 0.2 mg/dL (Up to 0.2)
[2023-02-17 10:54] LABS: Bacteria Moderate HPF (Negative); C & S Indicated? C&S Done As Ordered; Casts Negative LPF (Negative); Crystals Negative HPF (Negative); Epithelial Cells Rare HPF (Negative); Mucus Trace (Negative); RBC 0-2 HPF (0-2)
[2023-02-17] MEDS: Magnesium Oxide 400 MG TAB PO ×2 (13:08→20:43)
--- NOTE | 2023-02-17 13:25 | PGE_ITS ---
Date of Service Date of service: 02/17/23 Time of Service: 13:25 Assessment and Plan Assessment and plan (1) Hyponatremia: Status: Resolved Assessment and plan: ? 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 Stable after getting 1 dose of lasix, but I do no thave numbers from today because no bloodwork has been able to be drawn. A PICC line is getting placed now to facilitate this. Await am cortisol. Will discuss with nephrology once more information and response to furosemide is known. (2) Fever: Status: Resolved Assessment and plan: Checking blood cx. CXR negative. UA minimally abnormal and does have yeast cystitis - will await culture. Check procalcitonin. NO empiric abx. (3) Pressure ulcer: Status: Acute Assessment and plan: Sacral ulcers present on admission. Await wound care consult. (4) Hypertension: Status: Chronic Assessment and plan: Continue amlodipine. Monitor BP. Lisinopril d/c'ed due to hyponatremia. (5) Hypothyroidism: Status: Chronic Assessment and plan: TSH was 1.39 on 02/05/23. Continue levothyroxine at current dose. (6) Interstitial lung disease: Assessment and plan: PET CT was supposed to have been arranged via [facility]; however, [facility] denied having received the orders. I have notified Dr Ochoa. PET CT was ordered for pleural thickening and concerns for mesothelioma (h/o talc exposure). (7) Diabetes mellitus: Status: Chronic Assessment and plan: Continue metformin. Qualifiers: Diabetes mellitus type: type 2 Diabetes mellitus long term care social worker insulin use: without long term care social worker use Diabetes mellitus complication status: without complication Qualified Code(s): E11.9 - Type 2 diabetes mellitus without complications (8) Yeast cystitis: Status: Acute Assessment and plan: Continue fluconazole. (9) DVT prophylaxis: Status: Acute Assessment and plan: SC enoxaparin (10) Discharge planning issues: Status: Acute Assessment and plan: Full code. Palliative care consulted. The patient is not interested in going to SNF at this time. Continues to require hospitalization. Subjective Subjective Interval history since last seen: The lab has had difficulty drawing Ms Almaraz's bloodwork. Reports feeling tired. Denies headache, dizziness, CP, SOB, nausea. Poor PO intake. Tmax 38.5. Exam Narrative Exam Narrative: General: Pleasant weak/tired-appearing elderly female who is A&Ox3, resting comfortably in bed, looks more tired than yesterday, contracted BUEs HEENT: EOMI, MMM Heart: RRR, no m/r/g Lungs:CTAB anteriorly Abdomen: soft, nontender, nondistended Extremities: trace edema BLEs symmetrically; no lesions on B feet Objective Last Vital Signs Temp 37.4 C 02/17/23 09:28 Pulse 81 02/17/23 07:10 Resp 18 02/17/23 07:10 BP 130/74 02/17/23 07:10 Pulse Ox 93 02/17/23 07:10 Laboratory Results - last 24 hr 02/16/23 02/16/23 02/17/23 13:58 22:39 10:09 Sodium 122 L* 122 L* Potassium 4.0 Chloride 91 L Carbon Dioxide 24.6 Anion Gap 6.4 BUN 11 Creatinine 0.7 Est GFR (CKD-EPI 2020) 86.30 Glucose 113 H Calcium 8.3 L Urine Color Yellow Urine Clarity Sl Cloudy Urine pH 5.0 Ur Specific Superior 1.020 Urine Protein 100 H Urine Ketones 15 H Urine Blood Negative Urine Nitrite Negative Urine Bilirubin Small H Urine Urobilinogen 0.2 Ur Leukocyte Esterase Trace H Urine RBC 0-2 Urine WBC 5-10 Ur Epithelial Cells Rare Urine Crystals Negative Urine Bacteria Moderate Urine Casts Negative Urine Mucus Trace Ur Culture Indicated? C&S Done As Ordered Urine Glucose Negative Add-On Test Request 02/17/23 Unknown Sodium Potassium Chloride Carbon Dioxide Anion Gap BUN Creatinine Est GFR (CKD-EPI 2020) Glucose Calcium Urine Color Urine Clarity Urine pH Ur Specific Superior Urine Protein Urine Ketones Urine Blood Urine Nitrite Urine Bilirubin Urine Urobilinogen Ur Leukocyte Esterase Urine RBC Urine WBC Ur Epithelial Cells Urine Crystals Urine Bacteria Urine Casts Urine Mucus Ur Culture Indicated? Urine Glucose Add-On Test Request Cancelled Objective Narrative Objective Narrative: CXR: 1. ? No acute findings or significant interval change. 2. ? Suspected emphysema and mild upper lobe subpleural fibrosis. 3. ? Aortosclerosis? Time Spent with Patient Time Spent with Patient: 25-34 minutes Time was spent: preparing to see the patient(eg.review tests), obtaining and/or reviewing separately otained hiistory, ordering medications,tests, procedures, referring, communicating with other health resident care supervisor, indepentently interpreting results, counseling the patient and care coordination
[2023-02-17] MEDS: Nystatin POWDER 60 GM JAR TP ×2 (14:48→21:51)
[2023-02-17 15:08] VITALS: BP 108/61; PULSE 82; TEMP 37.5; O2SAT 97
[2023-02-17 16:02] LABS: Abs Immature Grans 0.05 10^3/uL (0.0-0.06); Absolute Basophil Count 0.06 10^3/uL (0.0-0.2); Absolute Eosinophil Count 0.09 10^3/uL (0.0-0.7); Absolute Lymphocyte Count 3.97 10^3/uL (1.2-3.4); Absolute Monocyte Count 0.53 10^3/uL (0.1-0.8); Absolute Neutrophil Count 4.82 10^3/uL (1.2-6.7); Basophils % 0.6; Eosinophils % 0.9; HCT 34.8 % (36.0-46.0); Immature Grans % 0.5; Lymphocytes % 41.7; MCH 32.3 pg (27.0-33.0); MCHC 34.5 % (32.0-36.0); MCV 94 fL (80-95); MPV 9.6 fL (8.0-11.0); Monocytes % 5.6; Neutrophils % 50.7; Platelet Count 215 10^3/uL (130-400); RBC 3.72 10^6/uL (3.93-5.22); RDW 13.4 % (11.7-14.6); RDW-SD 45.9 fL; WBC 9.52 10^3/uL (4.4-10.8)
[2023-02-17 16:18] LABS: Lab Add On Test DONE
[2023-02-17 16:22] LABS: Anion Gap 7.9 mmol/L (3-11); BUN 12 mg/dL (7-18); CO2 25.1 mmol/L (21.0-32.0); CREATININE 0.7 mg/dL (0.55-1.02); Calcium 8.4 mg/dL (8.5-10.1); Chloride 89 mmol/L (98-107); Glucose 106 mg/dL (74-106); Magnesium 1.5 mg/dL (1.8-2.4); Potassium 4.2 mmol/L (3.5-5.1)
[2023-02-17 16:25] LABS: Sodium 122 mmol/L (136-145)
[2023-02-17 16:41] LABS: Procalcitonin 0.1 ng/mL
[2023-02-17 16:54] LABS: NT-proBNP 111 pg/mL (<300)
[2023-02-17] MEDS: Furosemide 20 MG/2 ML VIAL IVP (17:17)
[2023-02-17] MEDS: Atorvastatin 10 MG TAB PO (21:51)
[2023-02-17] MEDS: Gabapentin 600 MG TAB PO (21:51)
[2023-02-17] MEDS: Senna TAB 1 TAB PO (21:51)
[2023-02-17 23:49] VITALS: BP 114/70; PULSE 74; RESP 18; TEMP 36.9; O2SAT 95
[2023-02-18] MEDS: Normal Saline Flush 10 ML SYR IVP (01:11)
[2023-02-18 01:21] LABS: Sodium 123 mmol/L (136-145)
[2023-02-18] MEDS: Furosemide 20 MG/2 ML VIAL IVP (01:48)
[2023-02-18] MEDS: Levothyroxine 75 MCG TAB PO (05:23)
[2023-02-18 07:02] LABS: Abs Immature Grans 0.06 10^3/uL (0.0-0.06); Absolute Basophil Count 0.06 10^3/uL (0.0-0.2); Absolute Eosinophil Count 0.15 10^3/uL (0.0-0.7); Absolute Lymphocyte Count 2.71 10^3/uL (1.2-3.4); Absolute Monocyte Count 0.35 10^3/uL (0.1-0.8); Absolute Neutrophil Count 4.49 10^3/uL (1.2-6.7); Basophils % 0.8; Eosinophils % 1.9; HCT 31.8 % (36.0-46.0); HGB 10.8 g/dL (11.2-15.7); Immature Grans % 0.8; Lymphocytes % 34.7; MCV 94 fL (80-95); Monocytes % 4.5; Neutrophils % 57.3; RBC 3.38 10^6/uL (3.93-5.22); RDW 13.3 % (11.7-14.6); RDW-SD 45.9 fL; WBC 7.82 10^3/uL (4.4-10.8)
[2023-02-18 07:25] VITALS: BP 113/59; PULSE 63; TEMP 36.5; O2SAT 96
[2023-02-18 07:26] LABS: BUN 15 mg/dL (7-18); CREATININE 0.6 mg/dL (0.55-1.02); Calcium 8.3 mg/dL (8.5-10.1); Chloride 87 mmol/L (98-107); Estimated GFR 89.56 (mL/min/1.73m2); Glucose 115 mg/dL (74-106); Magnesium 1.3 mg/dL (1.8-2.4); Potassium 4.1 mmol/L (3.5-5.1)
[2023-02-18 07:34] LABS: Sodium 123 mmol/L (136-145)
--- NOTE | 2023-02-18 09:02 | PDOC.CMPRO ---
Date of service: 02/18/23 Time of Service: 09:02 Care Management Progress Note Progress Note Text Progress Note Text: S/O:Gerardo was lying in bed when CM met with her, she seems tired and minimally engages in conversation. Further medical workup and treatment is required for hyponatremia. Palliative consult is ordered. CM will follow. A: Gerardo is an 82 year old woman admitted on 02/14/23 with hyponatremia P:?Expect that Gerardo will be discharged home with a resumption of Home Health and caregiver services when medically cleared by provider.? She will follow up with her PCP and plan of care as instructed following discharge.? She will be transported home by ambulance coordinated by CM .? CM will continue to support patient and discharge planning needs.
[2023-02-18] MEDS: Enoxaparin 40 MG/0.4 ML SYR SC (09:23)
[2023-02-18] MEDS: Calcium 600mg/Vit D 200U TAB 1 TAB PO ×2 (09:23→21:17)
[2023-02-18] MEDS: Fluconazole 100 MG TAB 200 MG PO (09:23)
[2023-02-18] MEDS: Gabapentin 400 MG CAP PO ×2 (09:23→12:32)
[2023-02-18] MEDS: Baclofen 10 MG TAB 20 MG PO ×3 (09:23→21:19)
[2023-02-18] MEDS: Aspirin E.C. 81 MG TABEC PO (09:23)
[2023-02-18] MEDS: amLODIPine 2.5 MG TAB PO (09:23)
[2023-02-18] MEDS: Cyanocobalamin 500 MCG TAB 1000 MCG PO (09:23)
[2023-02-18] MEDS: Mirabegron 50 MG TABCR PO (09:24)
[2023-02-18] MEDS: Magnesium Oxide 400 MG TAB PO ×2 (09:24→21:18)
[2023-02-18] MEDS: Nystatin POWDER 60 GM JAR TP ×3 (09:24→22:27)
[2023-02-18] MEDS: Omeprazole 20 MG CAPCR PO (09:24)
[2023-02-18] MEDS: metFORMIN 500 MG TAB 1000 MG PO ×2 (09:24→16:09)
[2023-02-18] MEDS: Multivitamin TAB 1 TAB PO (09:24)
[2023-02-18 09:36] LABS: RBC Morphology Normal
[2023-02-18 09:37] LABS: Platelet Count 153 10^3/uL (130-400)
[2023-02-18] MEDS: Normal Saline 500 ML IV (13:37)
[2023-02-18] MEDS: Salt Supplement (BUFFERED) TAB 1 TAB PO ×2 (13:40→21:18)
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
[2023-02-18] MEDS: Sodium Bicarbonate 50 MEQ/50 ML SYR IVP ×2 (15:21→15:22)
[2023-02-18] MEDS: MAGNESIUM SULFATE 2 GM/50 ML BAG IVPB (16:09)
[2023-02-18 17:48] VITALS: PULSE 66
[2023-02-18] MEDS: Fosfomycin Tromethamine 3 GM PACKET PO (18:29)
--- NOTE | 2023-02-18 18:52 | NUR.NOTE ---
Supra pubic cath has been changed as per order. Newly placed 16 fr 10 ml bolb liu placed. Patient tolerated procedure well. Nursing Note:
--- NOTE | 2023-02-18 19:00 | PGE_ITS ---
Date of Service Date of service: 02/18/23 Time of Service: 12:00 Assessment and Plan Assessment and plan (1) Hyponatremia: Status: Resolved Assessment and plan: Sodium 123 - sodium bicarb 2 amps given; repeat sodium 129 Continue fluid restriction 1 litre, recheck tomorrow am (2) Pressure ulcer: Status: Acute Assessment and plan: Chronic, ongoing issue, present on admission Wound care consult pending (3) Quadriplegia: Status: Acute Assessment and plan: Requiring significant caregiver support Full dependence ADLs (4) Suprapubic catheter: Status: Acute Assessment and plan: Changed s/t urine cx Fosfomycin given (5) Interstitial lung disease: Assessment and plan: Pulmonology following, consult pending PET CT previously recommended for an increased risk of mesothelioma based on preferences for full code and all life-sustaining treatment would pursue further work-up at this time (6) Depression: Status: Chronic Assessment and plan: consider mirtazapine for depressive sxs and appetite stimulant (7) Fever: Status: Resolved Assessment and plan: Checking blood cx. CXR negative. UA culture pseudomonas - fosfomycin given; continue diflucan for yeast (8) Hypertension: Status: Chronic Assessment and plan: Continue amlodipine. Monitor BP. Lisinopril d/c'ed due to hyponatremia. (9) Hypothyroidism: Status: Chronic Assessment and plan: TSH was 1.39 on 02/05/23. Continue levothyroxine at current dose. (10) Diabetes mellitus: Status: Chronic Assessment and plan: Continue metformin. Qualifiers: Diabetes mellitus complication status: without complication Diabetes mellitus termite exterminator insulin use: without termite exterminator use Diabetes mellitus type: type 2 Qualified Code(s): E11.9 - Type 2 diabetes mellitus without complications (11) Yeast cystitis: Status: Acute Assessment and plan: Continue fluconazole. (12) DVT prophylaxis: Status: Acute Assessment and plan: SC enoxaparin (13) Discharge planning issues: Status: Acute Assessment and plan: anticipate 2-3 days in hospital, resume service - she has 24/7 caregivers at home. Subjective Subjective Patient reports: no new complaints, tolerating a regular diet and afebrile; denies diarrhea, nausea or vomiting Interval history since last seen: Awake, alert, conversant, family visited. She has no complaints today Exam Const General: cooperative, not healthy appearing, no acute distress, well developed and ill appearing acutely and chronically Nutritional Appearance: average body habitus and other (appears pale, weak) Orientation: alert, awake and oriented x3 [facility] Head: normal to inspection, normocephalic and atraumatic Mouth: oral mucosae normal and mucous membranes dry (dry) Eyes General: appearance normal, both eyes and all related structures Alignment and Position: alignment normal Periorbital: periorbital findings normal Eyelids: eyelids normal Sclera: sclerae normal Cornea: corneas normal Pupils: PERRL EOM: EOM intact bilaterally Neck Neck: normal visual inspection, full ROM and no lymphadenopathy Chest Chest: other (s/p mastectomy, 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) Resp Effort & Inspection: normal respiratory effort, able to speak in complete sentences and no respiratory distress Auscultation: clear to auscultation bilaterally, no rales, no rhonchi and no wheezes Cardio Rate: regular rate Rhythm: regular rhythm Heart Sounds: S1 normal and S2 normal GI Inspection: normal to inspection and non-distended Palpation: soft, not firm, no guarding, not rigid and nontender Percussion: normal to percussion Back/Spine/Pelvis Cervical Spine: normal cervical lordosis and cervical ROM normal Skin General skin exam: other (dressing over points of contact with bed) Neuro General: patient alert, patient awake and patient oriented x3 Cognition: normal cognition Speech: speech normal Gait: other (quadriplegia, arms in semiflex position with slight tremor) Motor: muscle tone normal throughout Sensory Exam: other (insensate arms/legs) Extrem General: normal to inspection, capillary refill normal, no pedal edema and no calf tenderness Objective Last Vital Signs Temp 36.5 C 02/18/23 07:25 Pulse 66 02/18/23 17:48 Resp 18 02/17/23 23:49 BP 113/59 L 02/18/23 07:25 Pulse Ox 96 02/18/23 07:25 Laboratory Results - last 24 hr 02/18/23 02/18/23 02/18/23 00:49 06:45 06:45 WBC 7.82 RBC 3.38 L Hgb 10.8 L Hct 31.8 L MCV 94 MCH 32.0 MCHC 34.0 RDW 13.3 Plt Count 153 MPV Immature Gran % 0.8 Neutrophils % 57.3 Lymphocytes % 34.7 Monocytes % 4.5 Eosinophils % 1.9 Basophils % 0.8 Nucleated RBC % 0.0 Absolute Neutrophils 4.49 Absolute Lymphocytes 2.71 Absolute Monocytes 0.35 Absolute Eosinophils 0.15 Absolute Basophils 0.06 RBC Morphology Normal Sodium 123 L* 123 L* Potassium 4.1 Chloride 87 L Carbon Dioxide 26.0 Anion Gap 10.0 BUN 15 Creatinine 0.6 Est GFR (CKD-EPI 2020) 89.56 Glucose 115 H Calcium 8.3 L Magnesium 1.3 L Time Spent with Patient Time Spent with Patient: 35-49 minutes Time was spent: preparing to see the patient(eg.review tests), ordering medications,tests, procedures, referring, communicating with other health foster care worker, indepentently interpreting results, counseling the patient and care coordination
[2023-02-18 19:38] LABS: Anion Gap 9.5 mmol/L (3-11); BUN 17 mg/dL (7-18); CO2 27.5 mmol/L (21.0-32.0); CREATININE 0.7 mg/dL (0.55-1.02); Calcium 8.2 mg/dL (8.5-10.1); Chloride 92 mmol/L (98-107); Glucose 146 mg/dL (74-106); Potassium 3.7 mmol/L (3.5-5.1); Sodium 129 mmol/L (136-145)
[2023-02-18] MEDS: Atorvastatin 10 MG TAB PO (21:18)
[2023-02-18] MEDS: Senna TAB 1 TAB PO (21:18)
[2023-02-18] MEDS: Gabapentin 600 MG TAB PO (21:18)
[2023-02-18 23:39] VITALS: BP 94/59; PULSE 98; RESP 16; TEMP 36; O2SAT 93
[2023-02-19] VITALS (7 sets, daily range): BP systolic 96–129; BP diastolic 56–74; PULSE 64–80; RESP 16–18; TEMP 35.8–36.6; O2SAT 94–97
[2023-02-19] MEDS: Levothyroxine 75 MCG TAB PO (06:04)
[2023-02-19 07:11] LABS: Abs Immature Grans 0.04 10^3/uL (0.0-0.06); Absolute Basophil Count 0.06 10^3/uL (0.0-0.2); Absolute Eosinophil Count 0.15 10^3/uL (0.0-0.7); Absolute Neutrophil Count 5.11 10^3/uL (1.2-6.7); Basophils % 0.7; Eosinophils % 1.7; HCT 32.9 % (36.0-46.0); HGB 11.1 g/dL (11.2-15.7); Immature Grans % 0.4; Lymphocytes % 36.4; MCH 32.2 pg (27.0-33.0); MCHC 33.7 % (32.0-36.0); MCV 95 fL (80-95); MPV 9.6 fL (8.0-11.0); Monocytes % 4.4; Neutrophils % 56.4; Platelet Count 193 10^3/uL (130-400); RBC 3.45 10^6/uL (3.93-5.22); RDW 13.8 % (11.7-14.6); RDW-SD 47.9 fL; WBC 9.06 10^3/uL (4.4-10.8)
[2023-02-19 07:46] LABS: Anion Gap 6.8 mmol/L (3-11); BUN 18 mg/dL (7-18); CO2 29.2 mmol/L (21.0-32.0); CREATININE 0.8 mg/dL (0.55-1.02); Calcium 8.3 mg/dL (8.5-10.1); Chloride 91 mmol/L (98-107); Estimated GFR 73.52 (mL/min/1.73m2); Glucose 117 mg/dL (74-106); Magnesium 2.1 mg/dL (1.8-2.4); Potassium 4.2 mmol/L (3.5-5.1); Sodium 127 mmol/L (136-145)
[2023-02-19] MEDS: Magnesium Oxide 400 MG TAB PO ×2 (08:59→21:01)
[2023-02-19] MEDS: metFORMIN 500 MG TAB 1000 MG PO ×2 (09:00→17:12)
[2023-02-19] MEDS: Aspirin E.C. 81 MG TABEC PO (09:00)
[2023-02-19] MEDS: Omeprazole 20 MG CAPCR PO (09:00)
[2023-02-19] MEDS: Baclofen 10 MG TAB 20 MG PO ×3 (09:00→21:01)
[2023-02-19] MEDS: Salt Supplement (BUFFERED) TAB 1 TAB PO ×3 (09:00→21:03)
[2023-02-19] MEDS: Cyanocobalamin 500 MCG TAB 1000 MCG PO (09:00)
[2023-02-19] MEDS: Calcium 600mg/Vit D 200U TAB 1 TAB PO ×2 (09:00→21:02)
[2023-02-19] MEDS: Gabapentin 400 MG CAP PO ×2 (09:00→11:57)
[2023-02-19] MEDS: Mirabegron 50 MG TABCR PO (09:00)
[2023-02-19] MEDS: Multivitamin TAB 1 TAB PO (09:00)
[2023-02-19] MEDS: amLODIPine 2.5 MG TAB PO (09:00)
[2023-02-19] MEDS: Nystatin POWDER 60 GM JAR TP ×3 (09:01→21:03)
[2023-02-19] MEDS: Fluconazole 100 MG TAB 200 MG PO (09:01)
[2023-02-19] MEDS: Enoxaparin 40 MG/0.4 ML SYR SC (09:01)
--- NOTE | 2023-02-19 09:53 | PDOC.CMPRO ---
Date of service: 02/19/23 Time of Service: 09:53 Care Management Progress Note Progress Note Text Progress Note Text: S/O: Gerardo was lying in bed visiting with her sister and daughter Abeba when CM met with her. She is awake today and engages easily in conversation. She remains uninterested in discharging to a SNF. Per pt, her goal is to discharge home to be with her . She stated that she is very well supported by her family, home health, and her caregivers. CM will continue to follow. A: Gerardo is an 82 year old woman admitted on 02/14/23 with hyponatremia P:?Anticipate Gerardo will be discharged home with a resumption of Home Health and caregiver services when medically cleared by provider.? She will follow up with her PCP and plan of care as instructed following discharge.? She will be transported home by ambulance coordinated by CM.? CM will continue to support patient and discharge planning needs.
[2023-02-19 10:22] LABS: Lyme Ab w Rflx to Lyme Confirm Negative (Negative)
[2023-02-19 15:04] LABS: Sodium 129 mmol/L (136-145)
--- NOTE | 2023-02-19 16:29 | PGE_ITS ---
Date of Service Date of service: 02/19/23 Time of Service: 12:00 Assessment and Plan Assessment and plan (1) Hyponatremia: Status: Resolved Assessment and plan: Sodium 129 - this is ~ basaeline Continue fluid restriction 1 litre, recheck tomorrow am (2) Pressure ulcer: Status: Acute Assessment and plan: Chronic, ongoing issue, present on admission Wound care consult (3) Quadriplegia: Status: Acute Assessment and plan: Requiring significant caregiver support Full dependence ADLs 24/7 care at home provided, she has a lot of resources per her son and . (4) Suprapubic catheter: Status: Acute Assessment and plan: Draining, clear yellow - surrounding skin intact (5) Interstitial lung disease: Assessment and plan: Pulmonology following, consult pending PET CT previously recommended for an increased risk of mesothelioma based on preferences for full code and all life-sustaining treatment would pursue further work-up at this time (6) Depression: Status: Chronic Assessment and plan: consider mirtazapine for depressive sxs and appetite stimulant (7) Fever: Status: Resolved Assessment and plan: Checking blood cx. CXR negative. UA culture pseudomonas - fosfomycin given; continue diflucan for yeast (8) Hypertension: Status: Chronic Assessment and plan: Continue amlodipine. Monitor BP. Lisinopril d/c'ed due to hyponatremia. (9) Hypothyroidism: Status: Chronic Assessment and plan: TSH was 1.39 on 02/05/23. Continue levothyroxine at current dose. (10) Diabetes mellitus: Status: Chronic Assessment and plan: Continue metformin. 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 (12) DVT prophylaxis: Status: Acute Assessment and plan: SC enoxaparin (13) Discharge planning issues: Status: Acute Assessment and plan: Home w resumption of services when medically stable Chronic hyponatremia; will have her continue salt tabs on discharge and have BMP checked a few days after discharge. Subjective Subjective Patient reports: no new complaints, tolerating liquids well, tolerating a regular diet, bowel movement and afebrile; denies flatus, diarrhea, nausea, vomiting or shortness of breath Interval history since last seen: Gerardo states she is feeling better today. Son and present during exam. She has concerns about her pressure injuries and states she has an [facility] and it is always in motion. Sores have healed and come and go. Exam Const General: cooperative, not healthy appearing, well developed and ill appearing acutely and chronically Nutritional Appearance: average body habitus and other (appears pale, weak) Orientation: alert, awake and oriented x3 [facility] Head: normal to inspection, normocephalic and atraumatic Mouth: oral mucosae normal and mucous membranes dry (dry) Eyes General: appearance normal, both eyes and all related structures Alignment and Position: alignment normal Periorbital: periorbital findings normal Eyelids: eyelids normal Sclera: sclerae normal Cornea: corneas normal Pupils: PERRL EOM: EOM intact bilaterally Neck Neck: normal visual inspection, full ROM and no lymphadenopathy Chest Chest: other (s/p mastectomy, 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) Resp Effort & Inspection: normal respiratory effort, able to speak in complete sentences and no respiratory distress Auscultation: clear to auscultation bilaterally, no rales, no rhonchi and no wheezes Cardio Rate: regular rate Rhythm: regular rhythm Heart Sounds: S1 normal and S2 normal GI Inspection: normal to inspection and non-distended Palpation: soft, not firm, no guarding, not rigid and nontender Percussion: normal to percussion Skin General skin exam: other (dressing over points of contact with bed) Neuro General: patient alert, patient awake and patient oriented x3 Cognition: normal cognition Speech: speech normal Gait: other (quadriplegia, arms in semiflex position with slight tremor) Motor: muscle tone normal throughout Sensory Exam: other (insensate arms/legs) Extrem General: normal to inspection, capillary refill normal, no pedal edema and no calf tenderness Objective Last Vital Signs Temp 36.1 C L 02/19/23 15:22 Pulse 79 02/19/23 15:22 Resp 16 02/19/23 15:22 BP 129/74 02/19/23 15:22 Pulse Ox 97 02/19/23 15:22 Laboratory Results - last 24 hr 02/15/23 02/17/23 02/18/23 05:35 15:40 19:05 WBC RBC Hgb Hct MCV MCH MCHC RDW Plt Count MPV Immature Gran % Neutrophils % Lymphocytes % Monocytes % Eosinophils % Basophils % Nucleated RBC % Absolute Neutrophils Absolute Lymphocytes Absolute Monocytes Absolute Eosinophils Absolute Basophils Sodium 129 L Potassium 3.7 Chloride 92 L Carbon Dioxide 27.5 Anion Gap 9.5 BUN 17 Creatinine 0.7 Est GFR (CKD-EPI 2020) 86.30 Glucose 146 H Calcium 8.2 L Magnesium Cortisol 13 Lyme Disease Antibody Negative 02/19/23 02/19/23 02/19/23 06:46 06:46 14:30 WBC 9.06 RBC 3.45 L Hgb 11.1 L Hct 32.9 L MCV 95 MCH 32.2 MCHC 33.7 RDW 13.8 Plt Count 193 MPV 9.6 Immature Gran % 0.4 Neutrophils % 56.4 Lymphocytes % 36.4 Monocytes % 4.4 Eosinophils % 1.7 Basophils % 0.7 Nucleated RBC % 0.0 Absolute Neutrophils 5.11 Absolute Lymphocytes 3.30 Absolute Monocytes 0.40 Absolute Eosinophils 0.15 Absolute Basophils 0.06 Sodium 127 L 129 L Potassium 4.2 Chloride 91 L Carbon Dioxide 29.2 Anion Gap 6.8 BUN 18 Creatinine 0.8 Est GFR (CKD-EPI 2020) 73.52 Glucose 117 H Calcium 8.3 L Magnesium 2.1 Cortisol Lyme Disease Antibody Time Spent with Patient Time Spent with Patient: 35-49 minutes Time was spent: preparing to see the patient(eg.review tests), ordering medications,tests, procedures, referring, communicating with other health daycare director, indepentently interpreting results, counseling the patient and care coordination
[2023-02-19 21:03] LABS: Anion Gap 10.7 mmol/L (3-11); BUN 22 mg/dL (7-18); CO2 26.3 mmol/L (21.0-32.0); CREATININE 0.9 mg/dL (0.55-1.02); Calcium 8.5 mg/dL (8.5-10.1); Chloride 92 mmol/L (98-107); Estimated GFR 63.83 (mL/min/1.73m2); Glucose 159 mg/dL (74-106); Potassium 4.1 mmol/L (3.5-5.1); Sodium 129 mmol/L (136-145)
[2023-02-19] MEDS: Atorvastatin 10 MG TAB PO (21:06)
[2023-02-19] MEDS: Gabapentin 600 MG TAB PO (21:07)
[2023-02-19] MEDS: Senna TAB 1 TAB PO (21:07)
[2023-02-20] VITALS (9 sets, daily range): BP systolic 90–125; BP diastolic 55–73; PULSE 66–70; RESP 16; TEMP 35.8–36.5; O2SAT 95–96
[2023-02-20] MEDS: Levothyroxine 75 MCG TAB PO (05:34)
[2023-02-20 07:51] LABS: Abs Immature Grans 0.03 10^3/uL (0.0-0.06); Absolute Basophil Count 0.05 10^3/uL (0.0-0.2); Absolute Eosinophil Count 0.13 10^3/uL (0.0-0.7); Absolute Lymphocyte Count 2.23 10^3/uL (1.2-3.4); Absolute Monocyte Count 0.34 10^3/uL (0.1-0.8); Basophils % 0.7; Eosinophils % 1.7; Immature Grans % 0.4; Lymphocytes % 29.8; MCHC 34.4 % (32.0-36.0); MCV 96 fL (80-95); MPV 10.4 fL (8.0-11.0); Monocytes % 4.5; Neutrophils % 62.9; Platelet Count 175 10^3/uL (130-400); RBC 3.33 10^6/uL (3.93-5.22); RDW 13.8 % (11.7-14.6); RDW-SD 48.7 fL; WBC 7.48 10^3/uL (4.4-10.8)
[2023-02-20] MEDS: Nystatin POWDER 60 GM JAR TP ×2 (07:52→13:46)
[2023-02-20] MEDS: Cyanocobalamin 500 MCG TAB 1000 MCG PO (07:53)
[2023-02-20] MEDS: Gabapentin 400 MG CAP PO ×2 (07:53→10:57)
[2023-02-20] MEDS: Enoxaparin 40 MG/0.4 ML SYR SC (07:53)
[2023-02-20] MEDS: Calcium 600mg/Vit D 200U TAB 1 TAB PO ×2 (07:53→20:52)
[2023-02-20] MEDS: Magnesium Oxide 400 MG TAB PO ×2 (07:53→20:53)
[2023-02-20] MEDS: Mirabegron 50 MG TABCR PO (07:53)
[2023-02-20] MEDS: Omeprazole 20 MG CAPCR PO (07:53)
[2023-02-20] MEDS: Salt Supplement (BUFFERED) TAB 1 TAB PO (07:53)
[2023-02-20] MEDS: Baclofen 10 MG TAB 20 MG PO ×3 (07:54→20:51)
[2023-02-20] MEDS: Multivitamin TAB 1 TAB PO (07:54)
[2023-02-20] MEDS: Aspirin E.C. 81 MG TABEC PO (07:54)
[2023-02-20] MEDS: metFORMIN 500 MG TAB 1000 MG PO ×2 (07:54→16:52)
[2023-02-20] MEDS: Fluconazole 100 MG TAB 200 MG PO (07:54)
[2023-02-20] MEDS: amLODIPine 2.5 MG TAB PO (07:54)
[2023-02-20 08:13] LABS: Anion Gap 8.9 mmol/L (3-11); BUN 22 mg/dL (7-18); CO2 27.1 mmol/L (21.0-32.0); CREATININE 0.9 mg/dL (0.55-1.02); Calcium 8.2 mg/dL (8.5-10.1); Chloride 92 mmol/L (98-107); Estimated GFR 63.83 (mL/min/1.73m2); Glucose 131 mg/dL (74-106); Sodium 128 mmol/L (136-145)
--- NOTE | 2023-02-20 08:57 | PDOC.CMPRO ---
Date of service: 02/20/23 Time of Service: 08:57 Care Management Progress Note Progress Note Text Progress Note Text: S/O: Gerardo was lying in bed when CM met with her. She is awake and able to engage in conversation. Discharge this afternoon has been delayed due lack of caregiver coverage at home. Caregiver support is scheduled to resume tomorrow, CM confirmed with [facility]. A: Gerardo is an 82 year old woman admitted on 02/14/23 with hyponatremia P:?Anticipate Gerardo will be discharged home with a resumption of Home Health and caregiver services when medically cleared by provider.? She will follow up with her PCP and plan of care as instructed following discharge.? She will be transported home by ambulance coordinated by CM, preferably [facility] per pt.? CM will continue to support patient and discharge planning needs.
[2023-02-20] MEDS: Fosfomycin Tromethamine 3 GM PACKET PO (10:57)
--- NOTE | 2023-02-20 12:21 | PGE_ITS ---
Date of Service Date of service: 02/20/23 Time of Service: : Assessment and Plan Assessment and plan (1) Hyponatremia: Status: Resolved Assessment and plan: Sodium 128 - this is ~ baseline Continue fluid restriction 1 litre, recheck tomorrow am Continue salt tabs (2) Low blood pressure: Status: Acute Assessment and plan: 1 litre NS given- urine output was 60 ml for 6 hours, 1h after bolus > 200 ml out. Montor UO and respiratory status as well as blood pressure BP 100s/60s Maintenance IVF Hold antihtns meds (3) Pressure ulcer: Status: Acute Assessment and plan: Chronic, ongoing issue, present on admission Wound care consult (4) Quadriplegia: Status: Acute Assessment and plan: Requiring significant caregiver support Full dependence ADLs 09/03 care at home provided, she has a lot of resources per her son and , however no resources for the weekend, home health can not come until Friday 02/23 Home hospital air bed provided by the [facility] (5) Suprapubic catheter: Status: Acute Assessment and plan: Draining, clear yellow - surrounding skin intact; output sufficient (6) Interstitial lung disease: Assessment and plan: Pulmonology following, consult pending PET CT previously recommended for an increased risk of mesothelioma based on preferences for full code and all life-sustaining treatment would pursue further work-up at this time (7) Depression: Status: Chronic Assessment and plan: Started mirtazapine for depressive sxs (8) Fever: Status: Resolved Assessment and plan: Checking blood cx, negative to date, CXR negative. UA culture pseudomonas - fosfomycin given; continue diflucan for yeast BC negative (9) Hypertension: Status: Chronic Assessment and plan: Hold amlodipine s/t hypotension Monitor BP. Lisinopril d/c'ed due to hyponatremia. (10) Hypothyroidism: Status: Chronic Assessment and plan: TSH was 1.39 on 02/05/23. Continue levothyroxine at current dose. (11) Diabetes mellitus: Status: Chronic Assessment and plan: Continue metformin. Qualifiers: Diabetes mellitus complication status: without complication Diabetes mellitus senior care insulin use: without termite control servicer use Diabetes mellitus type: type 2 Qualified Code(s): E11.9 - Type 2 diabetes mellitus without complications (12) Yeast cystitis: Status: Acute Assessment and plan: Continue fluconazole. (13) DVT prophylaxis: Status: Acute Assessment and plan: SC enoxaparin (14) Discharge planning issues: Status: Acute Assessment and plan: Home w resumption of HH services when medically stable Chronic hyponatremia; will have her continue salt tabs on discharge and have BMP checked a few days after discharge. Discussed with Dr Curtis Subjective Subjective Patient reports: no new complaints, tolerating liquids well, tolerating a regular diet, voiding w/o difficulty (liu catheter) and afebrile; denies diarrhea, nausea, vomiting or shortness of breath Interval history since last seen: Awake, alert, pleasant, family in to visit, son and . She continues to not want to eat, or drink much, although has been encouraged to do so, today she had a popsicle. Her caregivers and home health are not able to see her this weekend and the famiy is not available to take care of her this weekend,. Discussed her staying until Thursday, she and family agree it is the safest plan. states he is unable to take care of her and he is alone with her from 8PM until the next morning every night. He said she won't eat, or drink much. He said he doesn't know about her medications and has asked his children to help and they say no, you've got this. True concern for her not receiving the correct medication at home which may contribute to her being hospitalized 3 times in one month. She does have HH services, we will make sure they provide med teaching and possibly med boxes to help patient's give her the right meds at the right time. Exam Const General: cooperative, not healthy appearing, well developed and ill appearing acutely and chronically Nutritional Appearance: average body habitus and other (appears pale, weak) Orientation: alert, awake and oriented x3 HENMT Head: normal to inspection, normocephalic and atraumatic Mouth: oral mucosae normal and mucous membranes dry (dry) Eyes General: appearance normal, both eyes and all related structures Alignment and Position: alignment normal Periorbital: periorbital findings normal Eyelids: eyelids normal Sclera: sclerae normal Cornea: corneas normal Pupils: PERRL EOM: EOM intact bilaterally Neck Neck: normal visual inspection, full ROM and no lymphadenopathy Chest Chest: other (s/p mastectomy, 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) Resp Effort & Inspection: normal respiratory effort, able to speak in complete sentences and no respiratory distress Auscultation: clear to auscultation bilaterally, no rales, no rhonchi and no wheezes Cardio Rate: regular rate Rhythm: regular rhythm Heart Sounds: S1 normal and S2 normal GI Inspection: normal to inspection and non-distended Palpation: soft, not firm, no guarding, not rigid and nontender Percussion: normal to percussion Skin General skin exam: other (dressing over points of contact with bed) Neuro General: patient alert, patient awake and patient oriented x3 Cognition: normal cognition Speech: speech normal Gait: other (quadriplegia, arms in semiflex position with slight tremor) Motor: muscle tone normal throughout Sensory Exam: other (insensate arms/legs) Extrem General: normal to inspection, capillary refill normal, no pedal edema and no calf tenderness Objective Last Vital Signs Temp 35.8 C L 02/20/23 11:37 Pulse 70 02/20/23 11:37 Resp 16 02/20/23 11:37 BP 125/73 02/20/23 11:37 Pulse Ox 95 02/20/23 11:37 Laboratory Results - last 24 hr 02/19/23 02/19/23 02/20/23 14:30 20:22 07:00 WBC RBC Hgb Hct MCV MCH MCHC RDW Plt Count MPV Immature Gran % Neutrophils % Lymphocytes % Monocytes % Eosinophils % Basophils % Nucleated RBC % Absolute Neutrophils Absolute Lymphocytes Absolute Monocytes Absolute Eosinophils Absolute Basophils Sodium 129 L 129 L 128 L Potassium 4.1 4.0 Chloride 92 L 92 L Carbon Dioxide 26.3 27.1 Anion Gap 10.7 8.9 BUN 22 H 22 H Creatinine 0.9 0.9 Est GFR (CKD-EPI 2020) 63.83 63.83 Glucose 159 H 131 H Calcium 8.5 8.2 L Magnesium 2.0 02/20/23 07:00 WBC 7.48 RBC 3.33 L Hgb 11.0 L Hct 32.0 L MCV 96 H MCH 33.0 MCHC 34.4 RDW 13.8 Plt Count 175 MPV 10.4 Immature Gran % 0.4 Neutrophils % 62.9 Lymphocytes % 29.8 Monocytes % 4.5 Eosinophils % 1.7 Basophils % 0.7 Nucleated RBC % 0.0 Absolute Neutrophils 4.70 Absolute Lymphocytes 2.23 Absolute Monocytes 0.34 Absolute Eosinophils 0.13 Absolute Basophils 0.05 Sodium Potassium Chloride Carbon Dioxide Anion Gap BUN Creatinine Est GFR (CKD-EPI 2020) Glucose Calcium Magnesium Time Spent with Patient Time Spent with Patient: 35-49 minutes Time was spent: preparing to see the patient(eg.review tests), ordering medications,tests, procedures, referring, communicating with other health health care facilities inspector, indepentently interpreting results and counseling the patient
[2023-02-20] MEDS: Salt Supplement (BUFFERED) TAB 2 TAB PO ×2 (13:47→20:52)
[2023-02-20] MEDS: Normal Saline 1,000 ML 1000 ML IV (15:53)
[2023-02-20] MEDS: Atorvastatin 10 MG TAB PO (21:04)
[2023-02-20] MEDS: Mirtazapine 15 MG TAB 7.5 MG PO (21:04)
[2023-02-20] MEDS: Gabapentin 600 MG TAB PO (21:04)
[2023-02-20] MEDS: Normal Saline 500 ML 125 ML IV (21:10)
[2023-02-21] MEDS: Levothyroxine 75 MCG TAB PO (05:37)
[2023-02-21] MEDS: Normal Saline 1,000 ML 125 ML IV ×2 (05:38→13:18)
[2023-02-21 05:42] VITALS: BP 112/61; PULSE 69; RESP 18; TEMP 36.5; O2SAT 96
[2023-02-21 07:22] LABS: Abs Immature Grans 0.03 10^3/uL (0.0-0.06); Absolute Basophil Count 0.04 10^3/uL (0.0-0.2); Absolute Eosinophil Count 0.11 10^3/uL (0.0-0.7); Absolute Lymphocyte Count 1.94 10^3/uL (1.2-3.4); Absolute Monocyte Count 0.27 10^3/uL (0.1-0.8); Absolute Neutrophil Count 3.82 10^3/uL (1.2-6.7); Basophils % 0.6; Eosinophils % 1.8; HCT 29.8 % (36.0-46.0); HGB 9.7 g/dL (11.2-15.7); Immature Grans % 0.5; Lymphocytes % 31.2; MCH 32.2 pg (27.0-33.0); MCHC 32.6 % (32.0-36.0); MCV 99 fL (80-95); MPV 9.8 fL (8.0-11.0); Monocytes % 4.3; Neutrophils % 61.6; Platelet Count 159 10^3/uL (130-400); RBC 3.01 10^6/uL (3.93-5.22); RDW 13.9 % (11.7-14.6); RDW-SD 50.3 fL; WBC 6.21 10^3/uL (4.4-10.8)
[2023-02-21 07:38] LABS: Anion Gap 8.9 mmol/L (3-11); BUN 19 mg/dL (7-18); CO2 24.1 mmol/L (21.0-32.0); CREATININE 0.9 mg/dL (0.55-1.02); Chloride 101 mmol/L (98-107); Estimated GFR 63.83 (mL/min/1.73m2); Glucose 127 mg/dL (74-106); Magnesium 1.9 mg/dL (1.8-2.4); Sodium 134 mmol/L (136-145)
[2023-02-21] MEDS: Mirabegron 50 MG TABCR PO (07:57)
[2023-02-21] MEDS: Gabapentin 400 MG CAP PO ×2 (07:58→10:57)
[2023-02-21] MEDS: Baclofen 10 MG TAB 20 MG PO ×3 (07:58→21:28)
[2023-02-21] MEDS: Cyanocobalamin 500 MCG TAB 1000 MCG PO (07:58)
[2023-02-21] MEDS: Multivitamin TAB 1 TAB PO (07:58)
[2023-02-21] MEDS: Aspirin E.C. 81 MG TABEC PO (07:58)
[2023-02-21] MEDS: Magnesium Oxide 400 MG TAB PO ×2 (07:58→21:31)
[2023-02-21] MEDS: Calcium 600mg/Vit D 200U TAB 1 TAB PO ×2 (07:58→21:27)
[2023-02-21] MEDS: metFORMIN 500 MG TAB 1000 MG PO ×2 (07:59→16:45)
[2023-02-21] MEDS: Enoxaparin 40 MG/0.4 ML SYR SC (07:59)
[2023-02-21] MEDS: Omeprazole 20 MG CAPCR PO (08:01)
[2023-02-21] MEDS: Fluconazole 100 MG TAB 200 MG PO (08:01)
[2023-02-21] MEDS: Nystatin POWDER 60 GM JAR TP ×3 (08:02→21:31)
[2023-02-21] MEDS: Salt Supplement (BUFFERED) TAB 2 TAB PO ×3 (10:57→21:31)
--- NOTE | 2023-02-21 11:19 | W.PM.PROGNOT ---
Date of Service Date of service: 02/21/23 Time of Service: 11:19 Assessment and Plan Assessment and plan (1) Hyponatremia: Status: Resolved Assessment and plan: Sodium 134 Continue fluid restriction 1 litre, recheck tomorrow am Continue salt tabs (2) Low blood pressure: Status: Acute Assessment and plan: Resolved, continue to hold antihtn 120/70 (3) Pressure ulcer: Status: Acute Assessment and plan: Chronic, ongoing issue, present on admission Wound care consult pending - supervisor film processing notified it has not been completed. (4) Quadriplegia: Status: Acute Assessment and plan: Requiring significant caregiver support Full dependence ADLs 09/03 care at home provided, she has a lot of resources per her son and , however no resources for the weekend, home health can not come until Friday 02/23 Home hospital air bed provided by the [facility] (5) Suprapubic catheter: Status: Acute Assessment and plan: Draining, clear yellow - surrounding skin intact; output sufficient (6) Interstitial lung disease: Assessment and plan: Pulmonology following, consult pending PET CT previously recommended for an increased risk of mesothelioma based on preferences for full code and all life-sustaining treatment would pursue further work-up at this time (7) Depression: Status: Chronic Assessment and plan: Continue mirtazapine for depressive sxs (8) Fever: Status: Resolved Assessment and plan: Checking blood cx, negative to date - 96h, CXR negative. UA culture pseudomonas - fosfomycin given; continue diflucan for yeast (9) Hypertension: Status: Chronic Assessment and plan: Hold amlodipine s/t hypotension Monitor BP. Lisinopril d/c'ed due to hyponatremia. (10) Hypothyroidism: Status: Chronic Assessment and plan: TSH was 1.39 on 02/05/23. Continue levothyroxine at current dose. (11) Diabetes mellitus: Status: Chronic Assessment and plan: Continue metformin. 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 (13) DVT prophylaxis: Status: Acute Assessment and plan: SC enoxaparin (14) Discharge planning issues: Status: Acute Assessment and plan: Home w resumption of services when medically stable Chronic hyponatremia; will have her continue salt tabs on discharge and have BMP checked a few days after discharge. Discussed with Dr Rosado Subjective Subjective Patient reports: no new complaints, tolerating liquids well, tolerating a regular diet, voiding w/o difficulty (suprapubic catheter), bowel movement and afebrile; denies diarrhea, vomiting or shortness of breath Interval history since last seen: Patient reports feeling better, ready to go home, however no care givers available this weekend. Explained we would like surgeons to look at her bottom prior to departure, she is in agreement with that. She does have home health services and they can do dressing changes. Exam Const General: cooperative, not healthy appearing, well developed and ill appearing acutely and chronically Nutritional Appearance: average body habitus and other (appears pale, weak) Orientation: alert, awake and oriented x3 HENMT Head: normal to inspection, normocephalic and atraumatic Mouth: oral mucosae normal and mucous membranes dry (dry) Eyes General: appearance normal, both eyes and all related structures Alignment and Position: alignment normal Periorbital: periorbital findings normal Eyelids: eyelids normal Sclera: sclerae normal Cornea: corneas normal Pupils: PERRL EOM: EOM intact bilaterally Neck Neck: normal visual inspection, full ROM and no lymphadenopathy Chest Chest: other (s/p mastectomy, 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) Resp Effort & Inspection: normal respiratory effort, able to speak in complete sentences and no respiratory distress Auscultation: clear to auscultation bilaterally, no rales, no rhonchi and no wheezes Cardio Rate: regular rate Rhythm: regular rhythm Heart Sounds: S1 normal and S2 normal GI Inspection: normal to inspection and non-distended Palpation: soft, not firm, no guarding, not rigid and nontender Percussion: normal to percussion Skin General skin exam: other (dressing over points of contact with bed) Other: Pressure injuries to bottom, unknown how deep but definately full thickness, no signs of infection Neuro General: patient alert, patient awake and patient oriented x3 Cognition: normal cognition Speech: speech normal Gait: other (quadriplegia, arms in semiflex position with slight tremor) Motor: muscle tone normal throughout Sensory Exam: other (insensate arms/legs) Extrem General: normal to inspection, capillary refill normal, no pedal edema and no calf tenderness Objective Last Vital Signs Temp 36.5 C 02/21/23 05:42 Pulse 69 02/21/23 05:42 Resp 18 02/21/23 05:42 BP 112/61 02/21/23 05:42 Pulse Ox 96 02/21/23 05:42 Laboratory Results - last 24 hr 02/20/23 02/21/23 02/21/23 Unknown 06:53 06:53 WBC 6.21 RBC 3.01 L Hgb 9.7 L Hct 29.8 L MCV 99 H MCH 32.2 MCHC 32.6 RDW 13.9 Plt Count 159 MPV 9.8 Immature Gran % 0.5 Neutrophils % 61.6 Lymphocytes % 31.2 Monocytes % 4.3 Eosinophils % 1.8 Basophils % 0.6 Nucleated RBC % 0.0 Absolute Neutrophils 3.82 Absolute Lymphocytes 1.94 Absolute Monocytes 0.27 Absolute Eosinophils 0.11 Absolute Basophils 0.04 Sodium 134 L Potassium 4.0 Chloride 101 Carbon Dioxide 24.1 Anion Gap 8.9 BUN 19 H Creatinine 0.9 Est GFR (CKD-EPI 2020) 63.83 Glucose 127 H Calcium 8.0 L Magnesium 1.9 Add-On Test Request TNP Time Spent with Patient Time Spent with Patient: 35-49 minutes Time was spent: preparing to see the patient(eg.review tests), ordering medications,tests, procedures, referring, communicating with other health care services manager, indepentently interpreting results, counseling the patient and care coordination
[2023-02-21 15:20] VITALS: BP 131/71; PULSE 69; TEMP 35.5; O2SAT 100
[2023-02-21] MEDS: Atorvastatin 10 MG TAB PO (21:00)
[2023-02-21] MEDS: Gabapentin 600 MG TAB PO (21:27)
[2023-02-21] MEDS: Senna TAB 1 TAB PO (21:28)
[2023-02-21] MEDS: Mirtazapine 15 MG TAB 7.5 MG PO (21:30)
[2023-02-21 22:16] LABS: Cortisol (Baseline) 10 ug/dL (4-23)
[2023-02-21 23:19] VITALS: BP 119/70; PULSE 71; RESP 14; TEMP 36.8; O2SAT 94
[2023-02-22] MEDS: Normal Saline 500 ML 125 ML IV (05:45)
[2023-02-22] MEDS: Levothyroxine 75 MCG TAB PO (05:45)
[2023-02-22 07:22] VITALS: PULSE 72; RESP 16; TEMP 36.8; O2SAT 96
[2023-02-22] MEDS: Multivitamin TAB 1 TAB PO (08:00)
[2023-02-22] MEDS: Fluconazole 100 MG TAB 200 MG PO (08:00)
[2023-02-22] MEDS: Gabapentin 400 MG CAP PO ×2 (08:01→11:25)
[2023-02-22] MEDS: Enoxaparin 40 MG/0.4 ML SYR SC (08:01)
[2023-02-22] MEDS: Calcium 600mg/Vit D 200U TAB 1 TAB PO ×2 (08:01→20:54)
[2023-02-22] MEDS: Mirabegron 50 MG TABCR PO (08:01)
[2023-02-22] MEDS: metFORMIN 500 MG TAB 1000 MG PO ×2 (08:01→17:17)
[2023-02-22] MEDS: Aspirin E.C. 81 MG TABEC PO (08:01)
[2023-02-22] MEDS: Cyanocobalamin 500 MCG TAB 1000 MCG PO (08:01)
[2023-02-22] MEDS: Omeprazole 20 MG CAPCR PO (08:01)
[2023-02-22] MEDS: Magnesium Oxide 400 MG TAB PO ×2 (08:01→20:54)
[2023-02-22] MEDS: Baclofen 10 MG TAB 20 MG PO ×3 (08:01→20:48)
[2023-02-22] MEDS: Salt Supplement (BUFFERED) TAB 2 TAB PO ×3 (09:28→20:48)
[2023-02-22 10:11] LABS: Anaplasma phagocytophilum Negative (Negative); B. miyamotoi PCR Negative (Negative); Babesia divergens/MO-1 Negative (Negative); Babesia duncani Negative (Negative); Babesia microti Negative (Negative); Ehrlichia chaffeensis Negative (Negative); Ehrlichia ewingii/canis Negative (Negative); Ehrlichia muris eauclairensis Negative (Negative)
[2023-02-22] MEDS: Nystatin POWDER 60 GM JAR TP ×3 (10:18→20:52)
[2023-02-22] MEDS: Normal Saline 1,000 ML 125 ML IV (13:26)
[2023-02-22 15:10] VITALS: BP 150/70; PULSE 76; RESP 16; TEMP 36.7; O2SAT 96
[2023-02-22] MEDS: Collagenase 30 GM TUBE TP (16:30)
[2023-02-22] MEDS: Furosemide 100 MG/10 ML VIAL 80 MG IVP (17:18)
--- NOTE | 2023-02-22 17:25 | W.PM.PROGNOT ---
Date of Service Date of service: 02/22/23 Time of Service: 17:25 Assessment and Plan Assessment and plan (1) Hyponatremia: Status: Resolved Assessment and plan: Patient refuse labs today Continue fluid restriction 1 litre, recheck tomorrow am Continue salt tabs Anasarca - furosemide given, diuresing well (2) Low blood pressure: Status: Acute Assessment and plan: Resolved, continue to hold antihtn 130/70 (3) Pressure ulcer: Status: Acute Assessment and plan: Chronic, ongoing issue, present on admission Wound care consult - recommended [place] and surgeon evaluation for deep debirdement of full thickness wound on bottom. Surgery consult placed (4) Quadriplegia: Status: Acute Assessment and plan: Requiring significant caregiver support Full dependence ADLs 09/03 care at home provided, she has a lot of resources per her son and , however no resources for the weekend, home health can not come until Friday 02/23 Home hospital air bed provided by the [facility] (5) Suprapubic catheter: Status: Acute Assessment and plan: Draining, clear yellow - surrounding skin intact; output sufficient (6) Interstitial lung disease: Assessment and plan: Pulmonology following, consult pending PET CT previously recommended for an increased risk of mesothelioma based on preferences for full code and all life-sustaining treatment would pursue further work-up at this time (7) Depression: Status: Chronic Assessment and plan: Continue mirtazapine for depressive sxs (8) Fever: Status: Resolved Assessment and plan: Checking blood cx, negative to date - 96h, CXR negative. UA culture pseudomonas - fosfomycin given; continue diflucan for yeast (9) Hypertension: Status: Chronic Assessment and plan: Hold amlodipine s/t hypotension Monitor BP. Lisinopril d/c'ed due to hyponatremia. (10) Hypothyroidism: Status: Chronic Assessment and plan: TSH was 1.39 on 02/05/23. Continue levothyroxine at current dose. (11) Diabetes mellitus: Status: Chronic Assessment and plan: Continue metformin. 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 (13) DVT prophylaxis: Status: Acute Assessment and plan: SC enoxaparin (14) Discharge planning issues: Status: Acute Assessment and plan: Home w resumption of services when medically stable Chronic hyponatremia; will have her continue salt tabs on discharge and have BMP checked a few days after discharge. Discussed with Dr Rosado Subjective Subjective Patient reports: no new complaints, tolerating liquids well, tolerating a regular diet, voiding w/o difficulty (suprapubic catheter), bowel movement and afebrile; denies diarrhea, vomiting or shortness of breath Interval history since last seen: Unchanged, family in to see her, son and . She is anxious to go home, explained she should be seen by surgery prior to going home for the wounds on her bottom. She agrees Exam Const General: cooperative, not healthy appearing, well developed and ill appearing acutely and chronically Nutritional Appearance: average body habitus and other (appears pale, weak) Orientation: alert, awake and oriented x3 HENMT Head: normal to inspection, normocephalic and atraumatic Mouth: oral mucosae normal and mucous membranes dry (dry) Eyes General: appearance normal, both eyes and all related structures Alignment and Position: alignment normal Periorbital: periorbital findings normal Eyelids: eyelids normal Sclera: sclerae normal Cornea: corneas normal Pupils: PERRL EOM: EOM intact bilaterally Neck Neck: normal visual inspection, full ROM and no lymphadenopathy Chest Chest: other (s/p mastectomy, 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) Resp Effort & Inspection: normal respiratory effort, able to speak in complete sentences and no respiratory distress Auscultation: clear to auscultation bilaterally, no rales, no rhonchi and no wheezes Cardio Rate: regular rate Rhythm: regular rhythm Heart Sounds: S1 normal and S2 normal GI Inspection: normal to inspection and non-distended Palpation: soft, not firm, no guarding, not rigid and nontender Percussion: normal to percussion Skin General skin exam: other (dressing over points of contact with bed) Other: Pressure injuries to bottom, unknown how deep but definately full thickness, no signs of infection Neuro General: patient alert, patient awake and patient oriented x3 Cognition: normal cognition Speech: speech normal Gait: other (quadriplegia, arms in semiflex position with slight tremor) Motor: muscle tone normal throughout Sensory Exam: other (insensate arms/legs) Extrem General: normal to inspection, capillary refill normal, no pedal edema and no calf tenderness Objective Last Vital Signs Temp 36.7 C 02/22/23 15:10 Pulse 76 02/22/23 15:10 Resp 16 02/22/23 15:10 BP 150/70 H 02/22/23 15:10 Pulse Ox 96 02/22/23 15:10 Time Spent with Patient Time Spent with Patient: 35-49 minutes Time was spent: preparing to see the patient(eg.review tests), ordering medications,tests, procedures, indepentently interpreting results, counseling the patient and care coordination
--- NOTE | 2023-02-22 17:32 | WOUNDCONS_ITS ---
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 Past medical history is significant for suprapubic catheter, pneumonia, breast cancer, neurogenic claudication, hypertension, hypothyroidism, constipation, autonomic dysreflexia, toxic metabolic encephalopathy, AAA, diabetes mellitus. Has been hospitalized on several occasions recently due to UTI and pneumonia. Also has frequent episodes of hyponatremia. Other history include; spinal stenosis of lumbar area and intracranial aneurysm. Pt lives at home with her and does receive home health during day time hours. At night she sleeps on her back throughout the night. She does not tolerate lying on her sides for any length of time. WBC has been unremarkable during this stay. Procalcitonin has been in normal range. No other inflammatory markers noted on this admission. Body Four View: 1 - Right ischial tuberosity 2 - Left medial thigh - Wound Right ischial tuberosity Wound Type: Deep Tissue Injury (DTI) Wound General Appearance: Reddened, Blackened, Draining, Necrotic Wound Bed Greatest Portion: Black (Eschar) Wound Bed Lesser Portion: Dusky Red Wound Surrounding Tissue Appearance: Bright Red, Shiny, Taut, Edematous Percent of Wound Bed Granulated/Red: 0 Percent of Wound Bed Slough/Yellow: 5 Percent of Wound Bed Eschar/Black: 95 Wound Length: 1.38 in (3.5 cm) Wound Width: 0.91 in (2.3 cm) Wound Depth: 0.16 in (0.4 cm) Wound Drainage Amount: Moderate Wound Drainage Odor: Pungent Wound Drainage Description: Brown Wound Topical Solution/Irrigant: Other (Anasept cleanser) Wound Debridement Method: Sharps (#15 scalpel, currette), Conservative Sharp Wound Debridement Result: Necrotic Remains Wound Debridement Amount of Tissue Removed: Minimal Additional Other Comments: Removed top layer of necrotic, nonviable tissue. Cross hatched layer and applied Santyl. Discussed with provider Lilly Merritt APRN that pt requires surgical consult for thourough debridement. Left medial thigh Wound Type: Partial Thickness, Other (Denuded skin) Wound General Appearance: Reddened, Denuded Wound Bed Greatest Portion: Pale [place] Wound Bed Lesser Portion: Yellow (Slough) Wound Surrounding Tissue Appearance: [place] Percent of Wound Bed Granulated/Red: 25 Percent of Wound Bed Slough/Yellow: 75 Percent of Wound Bed Eschar/Black: 0 Wound Length: 0.91 in (2.3 cm) Wound Width: 0.59 in (1.5cm) Wound Depth: 0 in (0.01 cm) Wound Drainage Amount: Minimal Wound Drainage Odor: None/Absent Wound Drainage Description: Serous Wound Topical Solution/Irrigant: Other (Anasept cleanser) Wound Debridement Method: Gauze Wound Debridement Result: Yellow Sloughing Remains Wound Debridement Amount of Tissue Removed: None - Circulation, Sensation, Motion Edema Degree: 3+ Sensation Description: Paresthesia Skin Temperature: Warm Skin Color: Normal Additional Other Comments: Sacral edema - Pain Pain Level: 0 Pain Scale Used: Visual Analog Scale 0-10 Pt has a deep tissue injury to the right ischial tuberosity. Able to remove only top layers of necrotic, nonviable tissue at the bedside. Pt will require surgical debridement by surgical associates to remove necrotic tissue to reach viable tissue. Remaining tissue around the deep tissue injury denuded, red, friable. Pt is not able to tolerate lying on her side for more than a couple of minutes at a time. Does not like repositioning. Assessment, measurements, cleaning, and dressing took approximately 45 minutes and pt was very belligerent afterwards despite explaining all the steps that I performed. Why did you leave me on my side for so long. Pt states that at home she lies flat on her back most of the time. Advised that it is recommended that she lie on her sides as much as possible for wound healing. I am not sure that pt will tolerate this at home. - Photo Photo: Right ischial tuberosity (label error). - Treatment/Dressing Change Topicals/Ointments: Santyl Cleanse With: Other (Anasept cleanser) Dressing Types: Mepilex w/Border, Skin Prep, Other Dressing Comment: Triad coloplast - Nutrition Education Reviewed Nutrition Education: Yes Note: Discussed needing a higher protein content in her diet for wound healing. List of red meats, eggs and cheese given. States she eats cheese several times a day at home. - Recomendation Recomendation:: Right Ischial Tuberosity: 1. [place] area with Anasept cleanser. Allow to dwell for two minutes. 2. Pat dry. 3. Apply Santyl ointment to wound bed with nickel thickness. 4. Apply skin prep to surrounding area. 5. Apply mepilex dressing to the area. 6. Change daily and prn. Left medial thigh and remaining reddened sacrum. 1. Clean the area with Anasept cleanser. 2. Pat dry. 3. Apply Triad Coloplast to reddened and open denuded skin. 4. Repeat daily and as needed for incontinence. Encourage pt to allow repositioning onto her sides as much as possible. Use rotating feature of the bed to assist. When in fowlers position, vary the degree of elevation of the head of the bed every 30 minutes. Have pillows length oliveros under her legs to allow support under her knees. Keep heel protectors on. Physcian/Nurse Practioner Notified: Yes Referrals: Surgeon (Discussed with provider.) Treatment Time - Time Total Time Spent with Patient: 45 minutes - Patient Will be Seen Weekly Treatment: daily - For: For:: 4 weeks
[2023-02-22 19:19] VITALS: BP 117/68; PULSE 87; RESP 16; TEMP 36.9; O2SAT 97
[2023-02-22] MEDS: Atorvastatin 10 MG TAB PO (21:48)
[2023-02-22] MEDS: Senna TAB 1 TAB PO (21:48)
[2023-02-22] MEDS: Gabapentin 600 MG TAB PO (21:48)
[2023-02-22] MEDS: Mirtazapine 15 MG TAB 7.5 MG PO (21:48)
[2023-02-23] MEDS: Levothyroxine 75 MCG TAB PO (05:58)
[2023-02-23 07:41] VITALS: BP 137/74; PULSE 74; RESP 18; TEMP 37.1; O2SAT 94
[2023-02-23 08:19] LABS: Abs Immature Grans 0.02 10^3/uL (0.0-0.06); Absolute Basophil Count 0.03 10^3/uL (0.0-0.2); Absolute Eosinophil Count 0.13 10^3/uL (0.0-0.7); Absolute Monocyte Count 0.31 10^3/uL (0.1-0.8); Absolute Neutrophil Count 2.49 10^3/uL (1.2-6.7); Basophils % 0.6; Eosinophils % 2.5; HGB 10.2 g/dL (11.2-15.7); Immature Grans % 0.4; Lymphocytes % 43.6; MCH 32.4 pg (27.0-33.0); MCHC 31.9 % (32.0-36.0); MCV 102 fL (80-95); MPV 9.3 fL (8.0-11.0); Monocytes % 5.9; Platelet Count 173 10^3/uL (130-400); RBC 3.15 10^6/uL (3.93-5.22); RDW 14.6 % (11.7-14.6); RDW-SD 54.2 fL; WBC 5.28 10^3/uL (4.4-10.8)
--- NOTE | 2023-02-23 08:26 | PDOC.CMPRO ---
Date of service: 02/23/23 Time of Service: 08:26 Care Management Progress Note Progress Note Text Progress Note Text: S/O:? Gerardo was lying in bed when CM met with her. The plan was for her to be discharged today, however she underwent surgical debridement of her decubitus ulcer and the surgeon felt it would be best to keep her in the hospital overnight to observe her. Unfortunately the ambulance for transport had been called and were on site when this decision was made at 4:30 pm. The ambulance and VNA services set up for tomorrow were cancelled along with the discharge. A: Gerardo is an 82 year old woman admitted on 02/14/23 with hyponatremia P:?Anticipate Gerardo will be discharged home with a resumption of Home Health and caregiver services when medically cleared by provider.? She will follow up with her PCP and plan of care as instructed following discharge.? She will be transported home by ambulance coordinated by CM, preferably [facility] per pt.? CM will continue to support patient and discharge planning needs.
[2023-02-23 09:10] LABS: Anion Gap 5.8 mmol/L (3-11); BUN 13 mg/dL (7-18); CO2 29.2 mmol/L (21.0-32.0); CREATININE 0.6 mg/dL (0.55-1.02); Calcium 8.2 mg/dL (8.5-10.1); Chloride 109 mmol/L (98-107); Estimated GFR 89.56 (mL/min/1.73m2); Glucose 113 mg/dL (74-106); Magnesium 1.3 mg/dL (1.8-2.4); Sodium 144 mmol/L (136-145)
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
[2023-02-23] MEDS: Baclofen 10 MG TAB 20 MG PO ×3 (09:15→22:54)
[2023-02-23] MEDS: Gabapentin 400 MG CAP PO ×2 (09:15→14:39)
[2023-02-23] MEDS: Magnesium Oxide 400 MG TAB PO ×2 (09:16→22:53)
[2023-02-23] MEDS: Calcium 600mg/Vit D 200U TAB 1 TAB PO ×2 (09:16→22:53)
[2023-02-23] MEDS: Mirabegron 50 MG TABCR PO (09:16)
[2023-02-23] MEDS: Salt Supplement (BUFFERED) TAB 2 TAB PO ×3 (09:16→22:54)
[2023-02-23] MEDS: Cyanocobalamin 500 MCG TAB 1000 MCG PO (09:17)
[2023-02-23] MEDS: Aspirin E.C. 81 MG TABEC PO (09:17)
[2023-02-23] MEDS: Fluconazole 100 MG TAB 200 MG PO (09:17)
[2023-02-23] MEDS: Multivitamin TAB 1 TAB PO (09:17)
[2023-02-23] MEDS: Nystatin POWDER 60 GM JAR TP (09:18)
[2023-02-23] MEDS: Omeprazole 20 MG CAPCR PO (09:18)
[2023-02-23] MEDS: metFORMIN 500 MG TAB 1000 MG PO ×2 (09:18→16:06)
--- NOTE | 2023-02-23 11:10 | W.ANESPRE ---
General Info Date of Service Date Performed: 02/23/23 Height: 4 ft 11 in Weight: 78.699 kg Body Mass Index (BMI): 35.0 Surgical Procedure: Operation Date: 02/23/23 13:10 Proposed Procedure Side Surgeon p Buttock Wound Debridement Right Zen Carbajal MD Meds Allergies and Home Medications Allergies Allergy/AdvReac Type Severity Reaction Status Date / Time ibuprofen AdvReac Mild Nausea Unverified 02/05/23 13:14 Home Medication Medication Instructions Recorded aspirin 81 mg tablet,delayed 81 mg PO DAILY 06/23/18 release atorvastatin 10 mg tablet 10 mg PO HS 06/23/18 metformin 500 mg tablet 1,000 mg PO BID 06/23/18 multivitamin 1 tab PO DAILY 06/23/18 calcium carbonate 500 mg-vitamin 1 tab PO BID 06/16/19 D3 10 mcg (400 unit) tablet (Calcium 500 With D) citric ac 1980.6 mg-glucono 59.4 30 ml irrigation DAILY 12/21/19 mg-mag carb 980.4 mg/30 mL irrig.soln (Renacidin) baclofen 10 mg tablet 20 mg PO TID 06/24/22 acetaminophen 500 mg tablet 1,000 mg PO TID PRN 08/25/22 cyanocobalamin (vitamin B-12) 1,000 mcg PO DAILY 08/25/22 1,000 mcg capsule d-mannose 500 mg capsule (AZO 1,000 mg PO BID 08/25/22 D-Mannose) gabapentin 400 mg capsule 400 mg PO BID 08/25/22 (Neurontin) gabapentin 600 mg tablet 600 mg PO HS 08/25/22 lidocaine 5 % topical cream 1 applic topical TID PRN 08/25/22 magnesium oxide 400 mg PO BID 08/25/22 levothyroxine 75 mcg tablet 75 mcg PO QAM 12/03/22 omeprazole 20 mg tablet,delayed 20 mg PO DAILY 12/03/22 release sennosides 8.6 mg tablet (senna) 8.6 mg PO QHS 12/03/22 ondansetron 4 mg disintegrating 4 mg PO Q8H PRN #10 tabs 12/05/22 tablet mirabegron 50 mg tablet,extended 50 mg PO DAILY 02/06/23 release 24 hr (Myrbetriq) fluconazole 200 mg tablet 200 mg PO DAILY #14 tabs 02/09/23 fosfomycin tromethamine 3 gram 3 g PO ONCE #1 ea 02/20/23 oral packet nystatin 100,000 unit/gram topical 60 g topical TID #60 grams 02/20/23 powder sodium chloride-potassium chloride 2 tab PO TID #60 tabs 02/20/23 287 mg-180 mg-15 mg tablet (Thermotabs) Current Visit Medications: Current Medications Generic Name Dose Route Start Last Admin Trade Name Freq PRN Reason Stop Dose Admin Acetaminophen 1,000 mg 02/14/23 10:27 02/17/23 09:28 Acetaminophen 500 Mg Tab PO 1,000 mg TID PRN PRN Administration Amlodipine Besylate 2.5 mg 02/17/23 08:30 02/20/23 07:54 Amlodipine 2.5 Mg Tab PO 2.5 mg DAILY CHIP Administration Aspirin 81 mg 02/14/23 08:30 02/23/23 09:17 Aspirin E.C. 81 Mg Tabec PO 81 mg DAILY CHIP Administration Atorvastatin Calcium 10 mg 02/14/23 22:00 02/22/23 21:48 Atorvastatin 10 Mg Tab PO 10 mg HS CHIP Administration Baclofen 20 mg 02/14/23 08:30 02/23/23 09:15 Baclofen 10 Mg Tab PO 20 mg TID CHIP Administration Calcium/Vitamin D 1 tab 02/14/23 08:30 02/23/23 09:16 Calcium 600mg/Vit D 200u Tab PO 1 tab BID CHIP Administration Collagenase 0 gm 02/23/23 08:30 02/22/23 16:30 Collagenase 30 Gm Tube TP 1 applic DAILY CHIP Administration Cyanocobalamin 1,000 mcg 02/14/23 08:30 02/23/23 09:17 Cyanocobalamin 500 Mcg Tab PO 1,000 mcg DAILY CHIP Administration Dimethicone/Zinc Oxide 0 gm 02/13/23 23:31 Jim Protect Cream 142 Gm Tube TP PRN PRN Enoxaparin Sodium 40 mg 02/14/23 08:00 02/23/23 09:20 Enoxaparin 40 Mg/0.4 Ml Syr SC Not Given Q24H CHIP Fluconazole 200 mg 02/14/23 08:30 02/23/23 09:17 Fluconazole 100 Mg Tab PO 200 mg DAILY CHIP Administration Gabapentin 600 mg 02/14/23 22:00 02/22/23 21:48 Gabapentin 600 Mg Tab PO 600 mg HS CHIP Administration Gabapentin 400 mg 02/14/23 08:00 02/23/23 09:15 Gabapentin 400 Mg Cap PO 400 mg 0800,1200 CHIP Administration Magnesium Sulfate 4 gm in 100 mls @ 100 mls/hr 02/23/23 11:09 IVPB 02/23/23 12:08 NOW ONE Levothyroxine Sodium 75 mcg 02/14/23 06:00 02/23/23 05:58 Levothyroxine 75 Mcg Tab PO 75 mcg 0600 CHIP Administration Lidocaine HCl 0 ml 02/17/23 13:45 Lidocaine 1% Multi-Dose 50 Ml Vial IJ DIRECTED CHIP Magnesium Oxide 400 mg 02/14/23 08:30 02/23/23 09:16 Magnesium Oxide 400 Mg Tab PO 400 mg BID CHIP Administration Metformin HCl 1,000 mg 02/14/23 08:00 02/23/23 09:18 Metformin 500 Mg Tab PO 1,000 mg BID@0800,1700 CHIP Administration Mirabegron 50 mg 02/14/23 08:30 02/23/23 09:16 Mirabegron 50 Mg Tabcr PO 50 mg DAILY CHIP Administration Mirtazapine 7.5 mg 02/20/23 22:00 02/22/23 21:48 Mirtazapine 15 Mg Tab PO 7.5 mg HS CHIP Administration Multivitamins 1 tab 02/14/23 08:30 02/23/23 09:17 Multivitamin Tab PO 1 tab DAILY CHIP Administration Nystatin 60 gm 02/17/23 14:00 02/23/23 09:18 Nystatin Powder 60 Gm Jar TP 1 applic TID CHIP Administration Omeprazole 20 mg 02/14/23 07:30 02/23/23 09:18 Omeprazole 20 Mg Capcr PO 20 mg DAILY@0730 CHIP Administration Ondansetron HCl 4 mg 02/14/23 07:37 Ondansetron O.D.T. 4 Mg Tabef PO Q8H PRN PRN Pt's Own Citric Ac- 30 each 02/15/23 08:30 02/23/23 09:19 Gluconolact-Mag Carb IR Not Given [Renacidin] DAILY CHIP Irrigation Solution Pt's Own Lidocaine 5 1 each 02/14/23 12:36 % Cream TP TID PRN PRN Pt's Own Zinc Oxide/ 0 each 02/20/23 12:34 Menthol ( TP Calmoseptine) QID PRN PRN Ointment Potassium Chloride/Sodium Chloride 2 tab 02/20/23 14:00 02/23/23 09:16 Salt Supplement (Buffered) Tab PO 2 tab TID CHIP Administration Sennosides 1 tab 02/13/23 23:45 02/22/23 21:48 Senna Tab PO 1 tab HS CHIP Administration PFSH Active Problems Active Problems: Problem Status Onset Code Low blood pressure I95.9 Depression F32.A Yeast cystitis B37.41 Acute hyponatremia E87.1 Discharge planning issues Z02.9 DVT prophylaxis Z29.9 Suprapubic catheter Z93.59 Pleural thickening J92.9 Pleural effusion J90 Pressure ulcer L89.90 Advanced care planning/counseling discussion Z71.89 Quadriplegia G82.50 Palliative care encounter Z51.5 Constipation K59.00 Shortness of breath R06.02 Pneumonia J18.9 Acute UTI N39.0 Spinal stenosis, lumbar M48.061 Primary malignant neoplasm of breast C50.919 Neurogenic claudication R29.818 Hypothyroidism E03.9 Hypertension I10 Constipation due to neurogenic bowel K59.00, K59.2 Benign neoplasm of colon D12.6 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 Arm edema R60.0 Nail dystrophy L60.3 UTI (urinary tract infection) N39.0 Transaminitis R74.01 Bladder spasm N32.89 Hyponatremia E87.1 COVID-19 ruled out Z03.818 Neuropathic pain of finger of right hand M79.2 Fungal dermatitis B36.9 Chronic suprapubic catheter Z93.59 Sepsis A41.9 Hypomagnesemia E83.42 Toxic metabolic encephalopathy G92 Acute UTI N39.0 Acute dehydration E86.0 MOLLY (acute kidney injury) N17.9 Infiltrate of lung present on imaging of chest R91.8 UTI (urinary tract infection) N39.0 Hyperlipemia E78.5 Intracranial aneurysm I67.1 AAA (abdominal aortic aneurysm) I71.4 Suprapubic catheter Z93.59 Diabetes mellitus E11.9 Neurogenic bladder N31.9 Paraplegia G82.20 Medical History Medical History Cervical disc disorder CTS (carpal tunnel syndrome) left wrist ESBL (extended spectrum beta-lactamase) producing bacteria infection History of breast cancer Interstitial lung disease Surgical History Surgical History H/O breast surgery H/O cervical spine surgery S/P cholecystectomy S/P rotator cuff repair S/P trigger finger release S/P tubal ligation Tobacco Smoking/Tobacco Use Status: Former Tobacco Use Alcohol Alcohol Intake: never Substance Use Substance use: Never Substance use type: does not use Vital Signs and Lab Results Vital Signs Most Recent Vital Signs in EMR: Most Recent Vital Signs Temp Pulse Resp BP Pulse Ox 37.1 C 74 18 137/74 94 02/23/23 07:41 02/23/23 07:41 02/23/23 07:41 02/23/23 07:41 02/23/23 07:41 Point of Care Results Point of Care Results: Finger Stick Blood Glucose 113 02/23/23 07:35 Lab Results 02/23/23 08:00 02/23/23 08:00 Blood Type / Crossmatch: No Data to Display Complete Blood Count: White Blood Count 5.28 10^3/uL (4.4-10.8) 02/23/23 08:00 Red Blood Count 3.15 10^6/uL (3.93-5.22) L 02/23/23 08:00 Hemoglobin 10.2 g/dL (11.2-15.7) L 02/23/23 08:00 Hematocrit 32.0 % (36.0-46.0) L 02/23/23 08:00 Platelet Count 173 10^3/uL (130-400) 02/23/23 08:00 Venous Blood Lactate 1.4 mmol/L (0.6-1.4) 02/13/23 21:10 Complete Metabolic Panel: Sodium 144 mmol/L (136-145) 02/23/23 08:00 Potassium 4.0 mmol/L (3.5-5.1) 02/23/23 08:00 Chloride 109 mmol/L (98-107) H 02/23/23 08:00 Carbon Dioxide 29.2 mmol/L (21.0-32.0) 02/23/23 08:00 BUN 13 mg/dL (7-18) 02/23/23 08:00 Creatinine 0.6 mg/dL (0.55-1.02) 02/23/23 08:00 Est GFR (CKD-EPI 2020) 89.56 (mL/min/1.73m2) 02/23/23 08:00 Magnesium 1.3 mg/dL (1.8-2.4) L 02/23/23 08:00 Calcium 8.2 mg/dL (8.5-10.1) L 02/23/23 08:00 Albumin 3.2 g/dL (3.4-5.0) L 02/13/23 20:00 Glucose 113 mg/dL (74-106) H 02/23/23 08:00 Liver Function Panel: Alanine Aminotransferase (ALT/SGPT) 26 U/L (14-59) 02/13/23 20:00 Aspartate Amino Transf (AST/SGOT) 18 U/L (15-37) 02/13/23 20:00 Coagulation Panel: No Data to Display Cardiac Panel: Troponin I < 50 ng/L (<or=60) 02/05/23 NT-Pro-B Natriuret Pep 111 pg/mL (<300) 02/17/23 Arterial Blood Gas: No Data to Display Venous Blood Gas: No Data to Display Pancreas Panel: No Data to Display Thyroid Panel: Thyroid Stimulating Hormone (TSH) 1.39 uIU/mL (0.36-3.74) 02/05/23 09:03 Infectious Disease: Coronavirus (COVID-19)(PCR) Negative (Negative) 02/13/23 21:35 Coronavirus 2019 Source Nasal/Nares 02/13/23 21:35 Blood Cultures: No Data to Display Toxicology Panel: No Data to Display Anesthesia Assessment and Plan Anesthesia History Personal History: No History of Anesthesia Complications Family History: No Family History of Anesthesia Complications Exercise Tolerance Exercise Tolerance: Metabolic Equivalents<4 Pertinent Negatives Pertinent Negatives: No Symptoms of GERD Cardiac & Pulmonary Exam Cardiac Exam: Normal S1/S2 Heart Sounds Pulmonary Exam: Clear Bilateral Breath Sounds Implantable Cardiac Device Does patient have a Pacemaker or an ICD?: No Airway Exam Known Difficult Airway: No Mallampati Class: 2 Mouth Opening: Normal (> 3cm) Thyromental Distance: Greater than 3 cm Neck Range of Motion: Limited ROM Neck Circumference: Normal Teeth Condition: Normal Dentition ASA Classification ASA Score: ASA 3 Emergency Case?: No NPO Status NPO Status: NPO Clears >2 hours, Solids >8 hours Anesthesia Plan Resuscitation Status: Full Code Anesthesia Technique: MAC Anesthesia Airway Planned: Natural Airway Monitors Used: Standard Monitors
[2023-02-23 11:11] VITALS: BMI 35.0
[2023-02-23] MEDS: Lactated Ringers 1,000 ML 30 ML IV (12:45)
[2023-02-23 13:20] VITALS: BP 130/68; PULSE 68; RESP 20; TEMP 36.3; O2SAT 94
[2023-02-23] MEDS: Lidocaine 1% Pres-Free W/EPI 1/200,000 30 ML VIAL (13:22)
--- NOTE | 2023-02-23 13:40 | W.ANESPOSTOP ---
Postoperative Evaluation Date, Time and Location Date Performed: 02/23/23 Time Performed: 13:40 Patient Location: Med/Surg Vital Signs Most Recent Imported Vital Signs: Most Recent Vital Signs Temp Pulse Resp BP Pulse Ox 37.1 C 74 18 137/74 94 02/23/23 07:41 02/23/23 07:41 02/23/23 07:41 02/23/23 07:41 02/23/23 07:41 Pain Score Most Recent Pain Score: Most Recent Pain Score Pain Level [Generalized] 0 02/19/23 08:00 Pain Level 0 02/22/23 19:19 Assessment Mental Status: Awake (Alert & Oriented to Patient Baseline) Airway and Respiratory Function: Patent airway with normal (patient baseline) respiratory exam Cardiovascular Function: Hemodynamically Stable Hydration Status: Adequately Hydrated Nausea & Vomiting: No Nausea or Vomiting Pain: Pt. Denies Any Pain Peripheral Nerve Block: Patient did not receive a nerve block
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
[2023-02-23] MEDS: MAGNESIUM SULFATE 4 GM/100 ML BAG IVPB (14:44)
--- NOTE | 2023-02-23 15:38 | DSE_ITS ---
Date of service: 02/24/23 Time of Service: 12:03 DS: Diagnosis Discharge Diagnosis (1) Hyponatremia: Status: Resolved (2) Low blood pressure: Status: Acute (3) Pressure ulcer: Status: Acute (4) Quadriplegia: Status: Acute (5) Suprapubic catheter: Status: Acute (6) Interstitial lung disease: (7) Depression: Status: Chronic (8) Fever: Status: Resolved (9) Hypertension: Status: Chronic (10) Hypothyroidism: Status: Chronic (11) Diabetes mellitus: Status: Chronic (12) Yeast cystitis: Status: Acute (13) DVT prophylaxis: Status: Acute (14) Discharge planning issues: Status: Acute Discharge Plan Disposition Patient Disposition: Home Condition: Fair Discharge Details Reason For Visit: Symptomatic Hyponatremia Admit Date/Time: 02/13/23 21:28 Admit Provider: Armen Parker Attending Provider: Armen Parker Primary Care Provider: Nida Farooq Home Meds and New Rx's Prescriptions: New nystatin 100,000 unit/gram Powder 60 g topical TID Qty: 60 0RF Thermotabs 287-180-15 mg Tablet 2 tab PO TID Qty: 60 0RF fosfomycin tromethamine 3 gram packet 3 g PO ONCE Qty: 1 0RF Rx Instructions: Take on 02/23/23 Continued magnesium oxide 400 mg magnesium capsule 400 mg PO BID AZO D-Mannose 500 mg capsule 1,000 mg PO BID cyanocobalamin (vitamin B-12) 1,000 mcg capsule 1,000 mcg PO DAILY lidocaine 5 % cream 1 applic topical TID PRN calcium carbonate-vitamin D3 [Calcium 500 With D] 500 mg(1,250mg) -400 unit Tablet 1 tab PO BID gabapentin 600 mg tablet 600 mg PO HS Rx Instructions: (in addition 400mg BID @ ) Renacidin 1,980.6 mg-59.4 mg-980.4mg/30mL solution 30 ml irrigation DAILY levothyroxine 75 mcg tablet 75 mcg PO QAM sennosides [senna] 8.6 mg Tablet 8.6 mg PO QHS omeprazole 20 mg Tablet,Delayed Release (Dr/Ec) 20 mg PO DAILY ondansetron 4 mg tablet,disintegrating 4 mg PO Q8H PRNQty: 10 0RF Myrbetriq 50 mg Tablet Extended Release 24 Hr 50 mg PO DAILY fluconazole 200 mg tablet 200 mg PO DAILY Qty: 14 0RF multivitamin Tablet 1 tab PO DAILY metformin 500 mg Tablet 1,000 mg PO BID atorvastatin 10 mg Tablet 10 mg PO HS aspirin 81 mg Tablet,Delayed Release (Dr/Ec) 81 mg PO DAILY baclofen 10 mg tablet 20 mg PO TID acetaminophen 500 mg tablet 1,000 mg PO TID PRN gabapentin [Neurontin] 400 mg capsule 400 mg PO BID Rx Instructions: @ 08 & noon (in addition to 600mg qHS) Discontinued lisinopril 2.5 mg Tablet 2.5 mg PO DAILY Qty: 30 0RF Discharge Instructions Instructions: Electrolyte/Mineral Supplement (By mouth), Hyponatremia (DC), How to Prevent Pressure Injuries (DC), Skin Care After Spinal Cord Injury (DC) Additional Instructions: Blood pressure has been low to normal in the hospital. Stop Lisinopril until you are seen by your PCP. Limit water to 1 litre per day. Recommend home health check your electrolytes on February 27. Wound care: Right Ischial Tuberosity: 1. [place] area with Anasept cleanser. Allow to dwell for two minutes. 2. Pat dry. 3. Apply Santyl ointment to wound bed with nickel thickness. 4. Apply skin prep to surrounding area. 5. Apply mepilex dressing to the area. 6. Change daily and prn. Left medial thigh and remaining reddened sacrum. 1. Clean the area with Anasept cleanser. 2. Pat dry. 3. Apply Triad Coloplast to reddened and open denuded skin. 4. Repeat daily and as needed for incontinence. Encourage pt to allow repositioning onto her sides as much as possible. Use rotating feature of the bed to assist. When in fowlers position, vary the degree of elevation of the head of the bed every 30 minutes. Have pillows length oliveros under her legs to allow support under her knees. Keep heel protectors on. Stand Alone Forms: Nursing Discharge Form Referrals: Nida Farooq [Primary Care Provider] - (Bobby will call you with an Appointment it will be at home 1-2 weeks; wound care to buttock, HTN - Lisinopril is help s/t hypotension and Sodium has been low, she is on sodium supplements. She should limit free water to 1 litre/d) Activity:: Activity as Tolerated Equipment/Supplies:: No Equipment Needed Diet:: As Tolerated Discharge Orders Discharge Orders: Discharge Order (Routine); Ordered 02/24/23 Ordered By: Lilly Merritt Other Ambulatory Orders: Basic Metabolic Panel (Routine) Timeframe: [id number] Location: None Selected Ordered By: Lilly Merritt DS: Summary Time Spent with Patient providing and/or coordinating discharge services: Greater than 30 minutes Status at Discharge Functional status at discharge: bed bound Overall status at discharge: patient is back to baseline Mental Status: mental status grossly normal Speech and Movement: speech clear Mood: congruent mood Affect: normal affect Exam Psych Mental Status: mental status grossly normal Speech and Movement: speech clear Mood: congruent mood Affect: normal affect DS: Data Vitals/I&O Vitals and I&O: Vital Signs Temperature 36.3 C L 02/23/23 13:20 Temperature Source Tympanic 02/23/23 13:20 Pulse 68 02/23/23 13:20 Pulse Rhythm Regular 02/23/23 09:27 Pulse 79 02/13/23 22:30 Respiratory Rate 20 02/23/23 13:20 Respiratory Effort Normal, Non-Labored 02/23/23 09:27 Respiratory Depth Normal 02/23/23 09:27 Respiratory Pattern Normal 02/23/23 09:27 Blood Pressure 130/68 02/23/23 13:20 Blood Pressure Mean 87 02/13/23 22:01 Blood Pressure Position Supine 02/13/23 19:48 Pulse Oximetry 94 02/23/23 13:20 Oxygen Delivery Method Room Air 02/23/23 13:20 Oxygen Flow Rate 0 02/23/23 13:20 Pain Level 0 02/22/23 19:19 Comment Pt. denies pain at this time. 02/22/23 07:00 Intake & Output 02/22/23 02/23/23 02/23/23 23:59 11:59 23:59 Intake Total 1277.5 / 2617.5 350 / 450 100 / 450 Output Total 2650 / 4350 600 / 700 100 / 700 Balance -1372.5 / -1732.5 -250 / -250 0 / -250 Weight 78.699 kg Intake: IV 1037.5 / 2037.5 100 / 100 Oral 240 / 580 350 / 350 Output: Urine 2650 / 4350 600 / 700 100 / 700 Other: Urine Color Pale Yellow Yellow Urine Appearance Clear Clear Clear Urine Odor None Comment Patient's liu was not clamped over night and spilled all over floor. Housekeeping cleaned up, 500cc left in bag this AM. Stool Size Moderate Stool Characteristics Soft Brown Data Completed and Pending Labs on day of discharge: Labs from last 24 hours 02/23/23 02/23/23 02/22/23 08:00 08:00 05:35 WBC 5.28 Cancelled RBC 3.15 L Cancelled Hgb 10.2 L Cancelled Hct 32.0 L Cancelled MCV 102 H Cancelled MCH 32.4 Cancelled MCHC 31.9 L Cancelled RDW 14.6 Cancelled Plt Count 173 Cancelled MPV 9.3 Cancelled Immature Gran % 0.4 Cancelled Neutrophils % 47.0 Cancelled Band Neutrophils % Cancelled Lymphocytes % 43.6 Cancelled Atypical Lymphs % Cancelled Monocytes % 5.9 Cancelled Eosinophils % 2.5 Cancelled Basophils % 0.6 Cancelled Metamyelocytes % Cancelled Myelocytes % Cancelled Promyelocytes % Cancelled Other Cells % Cancelled Nucleated RBC % 0.0 Cancelled Absolute Neutrophils 2.49 Cancelled Absolute Lymphocytes 2.30 Cancelled Absolute Monocytes 0.31 Cancelled Absolute Eosinophils 0.13 Cancelled Absolute Basophils 0.03 Cancelled RBC Morphology Cancelled Polychromasia Cancelled Hypochromasia Cancelled Poikilocytosis Cancelled Basophilic Stippling Cancelled Anisocytosis Cancelled Microcytosis Cancelled Macrocytosis Cancelled Spherocytes Cancelled Tear Drop Cells Cancelled Ovalocytes Cancelled Stomatocytes Cancelled Marlow-[place] Bodies Cancelled [place] Cells/Echinocytes Cancelled Acanthocytes (Spur) Cancelled Schistocytes Cancelled Sodium 144 D Potassium 4.0 Chloride 109 H Carbon Dioxide 29.2 Anion Gap 5.8 BUN 13 Creatinine 0.6 Est GFR (CKD-EPI 2020) 89.56 Glucose 113 H Calcium 8.2 L Magnesium 1.3 L Cortisol Baseline B. divergens/MO-1 PCR Babesia duncani (PCR) Babesia microti DNA PCR E.chaffeensis DNA (PCR) E.ewingii/canis DNA PCR E.muris eauclairensis (PCR) A. phagocytophilum (PCR) Blood B. miyamotoi (PCR) 02/22/23 02/21/23 02/15/23 05:35 06:53 05:35 WBC RBC Hgb Hct MCV MCH MCHC RDW Plt Count MPV Immature Gran % Neutrophils % Band Neutrophils % Lymphocytes % Atypical Lymphs % Monocytes % Eosinophils % Basophils % Metamyelocytes % Myelocytes % Promyelocytes % Other Cells % Nucleated RBC % Absolute Neutrophils Absolute Lymphocytes Absolute Monocytes Absolute Eosinophils Absolute Basophils RBC Morphology Polychromasia Hypochromasia Poikilocytosis Basophilic Stippling Anisocytosis Microcytosis Macrocytosis Spherocytes Tear Drop Cells Ovalocytes Stomatocytes Marlow-[place] Bodies [place] Cells/Echinocytes Acanthocytes (Spur) Schistocytes Sodium Cancelled Potassium Cancelled Chloride Cancelled Carbon Dioxide Cancelled Anion Gap Cancelled BUN Cancelled Creatinine Cancelled Est GFR (CKD-EPI 2020) Cancelled Glucose Cancelled Calcium Cancelled Magnesium Cancelled Cortisol Baseline 10 B. divergens/MO-1 PCR Negative Babesia duncani (PCR) Negative Babesia microti DNA PCR Negative E.chaffeensis DNA (PCR) Negative E.ewingii/canis DNA PCR Negative E.muris eauclairensis (PCR) Negative A. phagocytophilum (PCR) Negative Blood B. miyamotoi (PCR) Negative PFSH All Active Problems Low blood pressure (Acute) Depression (Chronic) Yeast cystitis (Acute) Acute hyponatremia (Acute) Discharge planning issues (Acute) DVT prophylaxis (Acute) Suprapubic catheter (Acute) Pleural thickening (Acute) Pleural effusion (Acute) Pressure ulcer (Acute) Advanced care planning/counseling discussion (Acute) Quadriplegia (Acute) Palliative care encounter (Acute) Constipation (Acute) Shortness of breath (Acute) Pneumonia (Acute) Acute UTI (Acute) Spinal stenosis, lumbar (Acute) Primary malignant neoplasm of breast (Acute) Neurogenic claudication (Acute) Hypothyroidism (Chronic) Hypertension (Chronic) Constipation due to neurogenic bowel (Acute) Benign neoplasm of colon (Acute) Autonomic dysreflexia (Acute) Arm edema (Acute) Nail dystrophy (Acute) UTI (urinary tract infection) (Acute) Transaminitis (Acute) Bladder spasm (Acute) COVID-19 ruled out (Acute) Neuropathic pain of finger of right hand (Acute) Fungal dermatitis (Acute) Chronic suprapubic catheter (Chronic) Hypomagnesemia (Acute) Acute UTI (Acute) Infiltrate of lung present on imaging of chest (Acute) UTI (urinary tract infection) (Acute) Hyperlipemia (Chronic) Intracranial aneurysm (Chronic) AAA (abdominal aortic aneurysm) (Chronic) Suprapubic catheter (Chronic) Diabetes mellitus (Chronic) Neurogenic bladder (Chronic) Paraplegia (Chronic) Medical History Cervical disc disorder CTS (carpal tunnel syndrome) left wrist ESBL (extended spectrum beta-lactamase) producing bacteria infection History of breast cancer Interstitial lung disease Surgical History H/O breast surgery H/O cervical spine surgery S/P cholecystectomy S/P rotator cuff repair S/P trigger finger release S/P tubal ligation Social History Smoking/Tobacco Use Status: Former Tobacco Use Quit Date: 08/17/06 Pack-years: 40 Smoking risk assessment performed?: Yes Alcohol Intake: never Drug use: Never Substance use type: does not use Housing: house Current gender identity: female Do you feel safe at home: Yes Do you feel safe in your relationship?: Yes Additional Social history: lives with her in [place], [place]. Has home health. Time Spent with Patient Time Spent with Patient: 45-69 minutes Time was spent: preparing to see the patient(eg.review tests), ordering medications,tests, procedures, referring, communicating with other health client care consultant, indepentently interpreting results, counseling the patient and care coordination
[2023-02-23] MEDS: Fosfomycin Tromethamine 3 GM PACKET PO (16:06)
--- NOTE | 2023-02-23 16:10 | W.PM.OP ---
Date of service: 02/23/23 Time of Service: 16:10 Operative Note Operative Note DATE OF PROCEDURE: 02/23/23 PRE-OP DIAGNOSIS: Right gluteus soft tissue and POST-OP DIAGNOSIS: same PROCEDURE: Sharp debridement of right gluteal soft tissue SURGEON: Zen Carbajal ANESTHESIA TYPE: Local By Surgeon Refer to Anesthesia Record ESTIMATED BLOOD LOSS: 10 PATHOLOGY: none sent COMPLICATIONS: None Patient was transported to: floor Patient's condition: stable Findings: 3.5 x 2.5 x 0.5 cm soft tissue Procedure Description: Patient was brought down to the operating room, and assisted into the left lateral decubitus position. Great care was taken to pad her appropriately. Once she was comfortable, I anesthetized the area with local anesthetic. Next, I sharply excised the central necrotic portion of this tissue. This was performed with a scalpel. Dissection was carried down to healthy bleeding tissue, and the circumferential margins were also excised back to healthy skin. There were no signs of active infection. Wound was irrigated, and cautery was used to control a minimal amount of superficial skin bleeding. Next, the wound was dressed with a silver impregnated sterile dressing. In total, the size of the excision is 3.5 cm long by 2.5 cm wide by 0.5 cm deep.
[2023-02-23 19:30] VITALS: BP 109/58; PULSE 63; RESP 14; TEMP 36.1; O2SAT 97
[2023-02-23] MEDS: Gabapentin 600 MG TAB PO (22:53)
[2023-02-23] MEDS: Protein Nutritional Supplement 16 GM 1 OUNCE PACKET PO (22:54)
[2023-02-23] MEDS: Mirtazapine 15 MG TAB 7.5 MG PO (22:54)
[2023-02-23] MEDS: Atorvastatin 10 MG TAB PO (22:54)
[2023-02-24 03:42] VITALS: BP 114/65; PULSE 61; RESP 18; TEMP 36.6; O2SAT 94
[2023-02-24] MEDS: Levothyroxine 75 MCG TAB PO (05:06)
[2023-02-24 07:31] VITALS: BP 162/86; PULSE 65; TEMP 35.9; O2SAT 97
[2023-02-24] MEDS: Magnesium Oxide 400 MG TAB PO (08:48)
[2023-02-24] MEDS: Fluconazole 100 MG TAB 200 MG PO (08:49)
[2023-02-24] MEDS: metFORMIN 500 MG TAB 1000 MG PO (08:49)
[2023-02-24] MEDS: Calcium 600mg/Vit D 200U TAB 1 TAB PO (08:49)
[2023-02-24] MEDS: Gabapentin 400 MG CAP PO ×2 (08:50→11:25)
[2023-02-24] MEDS: Multivitamin TAB 1 TAB PO (08:50)
[2023-02-24] MEDS: Mirabegron 50 MG TABCR PO (08:50)
[2023-02-24] MEDS: Omeprazole 20 MG CAPCR PO (08:50)
[2023-02-24] MEDS: Aspirin E.C. 81 MG TABEC PO (08:50)
[2023-02-24] MEDS: Salt Supplement (BUFFERED) TAB 2 TAB PO (08:50)
[2023-02-24] MEDS: Baclofen 10 MG TAB 20 MG PO (08:51)
[2023-02-24] MEDS: Enoxaparin 40 MG/0.4 ML SYR SC (08:51)
[2023-02-24] MEDS: Protein Nutritional Supplement 16 GM 1 OUNCE PACKET PO (08:51)
[2023-02-24] MEDS: Cyanocobalamin 500 MCG TAB 1000 MCG PO (08:52)
--- NOTE | 2023-02-24 09:59 | PGE_ITS ---
Date of Service Date of service: 02/24/23 Time of Service: 10:00 Assessment and Plan Assessment and plan (1) Acute hyponatremia: Status: Acute Assessment and plan: POD #1 s/p sharp wound debridement of right gluteal soft tissue. She remained in the hospital overnight to ensure no post-op bleeding or complications. Patient is doing well and eager to d/c home. Per Care management notes, patient has services and / care givers along with her . Wound care will need to continue through HH. Frequent position changes and off loading of the area will be prudent to facilitate and encourage healing. agree w/ above. There is a high Probability that these wounds will not heal given her Nutritional onal status and paraplegia. I think the goal is to preven t infection and control pain. pt has Personal care attendants. see wo care orders. Subjective Subjective Interval history since last seen: patient expresses fatigue, but other oliveros is hoping to return home today. Exam Const General: cooperative, healthy appearing and comfortable Orientation: alert and awake Resp Effort & Inspection: normal respiratory effort, no audible wheezes and no cough Objective Last Vital Signs Temp 35.9 C L 02/24/23 07:31 Pulse 65 02/24/23 07:31 Resp 18 02/24/23 03:42 BP 162/86 H 02/24/23 07:31 Pulse Ox 97 02/24/23 07:31 Laboratory Results - last 24 hr 02/15/23 02/21/23 05:35 06:53 Cortisol Baseline 10 B. divergens/MO-1 PCR Negative Babesia duncani (PCR) Negative Babesia microti DNA PCR Negative E.chaffeensis DNA (PCR) Negative E.ewingii/canis DNA PCR Negative E.muris eauclairensis (PCR) Negative A. phagocytophilum (PCR) Negative Blood B. miyamotoi (PCR) Negative Time Spent with Patient Time Spent with Patient: <25 minutes Time was spent: preparing to see the patient(eg.review tests), obtaining and/or reviewing separately otained hiistory, ordering medications,tests, procedures, referring, communicating with other health coronary care unit nurse, indepentently interpreting results, counseling the patient and care coordination
[2023-02-24 10:30] LABS: Abs Immature Grans 0.03 10^3/uL (0.0-0.06); Absolute Basophil Count 0.03 10^3/uL (0.0-0.2); Absolute Eosinophil Count 0.16 10^3/uL (0.0-0.7); Absolute Lymphocyte Count 2.01 10^3/uL (1.2-3.4); Absolute Monocyte Count 0.26 10^3/uL (0.1-0.8); Absolute Neutrophil Count 2.74 10^3/uL (1.2-6.7); Basophils % 0.6; Eosinophils % 3.1; HCT 31.6 % (36.0-46.0); HGB 9.8 g/dL (11.2-15.7); Immature Grans % 0.6; Lymphocytes % 38.4; MCV 103 fL (80-95); MPV 9.4 fL (8.0-11.0); Neutrophils % 52.3; Platelet Count 179 10^3/uL (130-400); RBC 3.06 10^6/uL (3.93-5.22); RDW 14.5 % (11.7-14.6); RDW-SD 55.1 fL; WBC 5.23 10^3/uL (4.4-10.8)
[2023-02-24 10:51] LABS: Anion Gap 7.1 mmol/L (3-11); BUN 17 mg/dL (7-18); CO2 25.9 mmol/L (21.0-32.0); CREATININE 0.8 mg/dL (0.55-1.02); Calcium 8.4 mg/dL (8.5-10.1); Chloride 108 mmol/L (98-107); Estimated GFR 73.52 (mL/min/1.73m2); Glucose 150 mg/dL (74-106); Potassium 4.3 mmol/L (3.5-5.1); Sodium 141 mmol/L (136-145)
--- NOTE | 2023-02-24 13:03 | PDOC.CMDIS ---
Date of service: 02/24/23 Time of Service: 13:03 LACE Index Scoring Tool Questions: Length of Stay (in days): 7 - 13 Was the patient admitted via the E.D.?: Yes Comorbidities: Diabetes w/o Complication and Any Tumor E.D. Visits: 6 Answers: Total Score: 15 Risk of Readmission: High Risk Care Management Discharge Plan Reason for Hospitalization: hyponatremia Discharge Plan: Gerardo will be discharged home with a resumption of Home Health and caregiver services. She will follow up with her PCP and plan of care as instructed following discharge. She will be transported home by ambulance coordinated by [facility] ( [facility]). Patient/Family Education Needs: Review of discharge instructions, activity. restrictions (fluid intake), follow up plan and and discuss Ask Me Three. Services Needed at Discharge: Home Health Care Services and Transportation
--- NOTE | 2023-02-24 14:00 | DSE_ITS ---
Date of service: 02/25/23 Time of Service: 14:00 DS: Diagnosis Discharge Diagnosis (1) Acute hyponatremia: Status: Deleted Discharge Plan Disposition Patient Disposition: Home Condition: Fair Discharge Details Reason For Visit: Symptomatic Hyponatremia Admit Date/Time: 02/13/23 21:28 Admit Provider: Armen Parker Attending Provider: Armen Parker Primary Care Provider: Nida Farooq Hospital Course Hospital Course: This is a 82-year-old female patient with a history of quadriplegia, neurogenic bladder with suprapubic catheter, constipation, history of AAA, hyperlipidemia, recent pneumonia, recent UTI, breast CA, MOLLY, hyperlipidemia, diabetes and? spinal stenosis who presented to the [facility] emergency department 02/13/23 at request of PCP with laboratory result of sodium 124, 4 days after hospital discharge for UTI and hyponatremia;this is her third admission in one month. She was first admitted 01/23 - 01/31 and treated for pneumonia and UTI.? She was given antibiotics and steroid taper.? At that time she was mildly hypnatremic to 130 and she normalized with treatment of the pneumonia without any salt/saline therapy.? At that visit, Dr. Loera was concerned for interstitial lung disease and pleural thickening and PET/CT ordered as outpatient.?She was admitted again 02/05 - 02/09/23 with a fever and sodium to 127.? She was treated for a fungal UTI with fluconazole.? At that visit she was treated with two 250mg boluses of hypertonic saline along with fluid restriction and salt tablets.? Her sodium normalized to 137 on discharge.?On admisison when asked about her fluid intake, she said she drinks plenty of water, but hasn't been eating much in the past 2 days.? She has some nausea and fatigue, but otherwise feels the same as normal.??She and family are aware of the sodium and the free water limits and voiced understanding, hoewver continue to let her drink a lot of water..? She is very concerned about having to come right back to the hospital, she feels her can no longer care for her.? Other family reports she has 24/7 care givers. Her vital signs are stable, no fevers, blood cultures are negative.? The wound care nurse recommended she have a surgical consult for her wound. Surgery was consulted and she was taken to the OR to have the wound on her right buttock debrided, that was done without issues. Patient was treated for UTI with fosfomycin, 2 doses, and her urinary catheter was changed. She was started on Mirtazipine for depression and should continue this at home. Recommend PCP evaluate need for the dose to be increased. She continues to be worked up for SIADH and ILD on an outpatient basis. Discussion with Dr Rosado, she should continue fluid restriction of 1000 ml/day and take salt supplements. She is discharged to home, improved, via EMS. Family did delay discharge for the weekend as they did not have any home care providers available to care for her. Patients magnesium was low, she should continue her home magnesium supplement. Recommend a BMP be drawn by home health in 5 days to recheck her electrolytes.? Home health should continue wound care for her existing pressure injury on her coccyx, wound care recommendations are in the discharge notes.. Full resumption of Home Health services.? Home Meds and New Rx's Prescriptions: New nystatin 100,000 unit/gram Powder 60 g topical TID Qty: 60 0RF Thermotabs 287-180-15 mg Tablet 2 tab PO TID Qty: 60 0RF mirtazapine 7.5 mg tablet 7.5 mg PO QHS Qty: 30 0RF Continued magnesium oxide 400 mg magnesium capsule 400 mg PO BID AZO D-Mannose 500 mg capsule 1,000 mg PO BID cyanocobalamin (vitamin B-12) 1,000 mcg capsule 1,000 mcg PO DAILY lidocaine 5 % cream 1 applic topical TID PRN calcium carbonate-vitamin D3 [Calcium 500 With D] 500 mg(1,250mg) -400 unit Tablet 1 tab PO BID gabapentin 600 mg tablet 600 mg PO HS Rx Instructions: (in addition 400mg BID @ ) Renacidin 1,980.6 mg-59.4 mg-980.4mg/30mL solution 30 ml irrigation DAILY levothyroxine 75 mcg tablet 75 mcg PO QAM sennosides [senna] 8.6 mg Tablet 8.6 mg PO QHS omeprazole 20 mg Tablet,Delayed Release (Dr/Ec) 20 mg PO DAILY ondansetron 4 mg tablet,disintegrating 4 mg PO Q8H PRNQty: 10 0RF Myrbetriq 50 mg Tablet Extended Release 24 Hr 50 mg PO DAILY fluconazole 200 mg tablet 200 mg PO DAILY Qty: 14 0RF multivitamin Tablet 1 tab PO DAILY metformin 500 mg Tablet 1,000 mg PO BID atorvastatin 10 mg Tablet 10 mg PO HS aspirin 81 mg Tablet,Delayed Release (Dr/Ec) 81 mg PO DAILY baclofen 10 mg tablet 20 mg PO TID acetaminophen 500 mg tablet 1,000 mg PO TID PRN gabapentin [Neurontin] 400 mg capsule 400 mg PO BID Rx Instructions: @ 08 & noon (in addition to 600mg qHS) Discontinued lisinopril 2.5 mg Tablet 2.5 mg PO DAILY Qty: 30 0RF Discharge Instructions Instructions: Electrolyte/Mineral Supplement (By mouth), Hyponatremia (DC), How to Prevent Pressure Injuries (DC), Skin Care After Spinal Cord Injury (DC) Additional Instructions: Blood pressure has been low to normal in the hospital. Stop Lisinopril until you are seen by your PCP. Limit water to 1 litre per day. Recommend home health check your electrolytes on February 27. Wound care: Right Ischial Tuberosity: 1. [place] area with Anasept cleanser. Allow to dwell for two minutes. 2. Pat dry. 3. Apply Santyl ointment to wound bed with nickel thickness. 4. Apply skin prep to surrounding area. 5. Apply mepilex dressing to the area. 6. Change daily and prn. Left medial thigh and remaining reddened sacrum. 1. Clean the area with Anasept cleanser. 2. Pat dry. 3. Apply Triad Coloplast to reddened and open denuded skin. 4. Repeat daily and as needed for incontinence. Encourage pt to allow repositioning onto her sides as much as possible. Use r otating feature of the bed to assist. When in fowlers position, vary the degree of elevation of the head of the bed every 30 minutes. Have pillows length oliveros under her legs to allow support under her knees. Keep heel protectors on. Stand Alone Forms: Nursing Discharge Form Referrals: Nida Farooq [Primary Care Provider] - (Bobby will call you with an Appointment it will be at home 1-2 weeks; wound care to buttock, HTN - Lisinopril is help s/t hypotension and Sodium has been low, she is on sodium supplements. She should limit free water to 1 litre/d - she was started on Mirtazapine for depression at 7.5 mg nightly and should be assessed for need to increase the dose. ) Activity:: Activity as Tolerated Equipment/Supplies:: No Equipment Needed Diet:: As Tolerated Discharge Orders Discharge Orders: Discharge Order (Routine); Ordered 02/24/23 Ordered By: Lilly Merritt Other Ambulatory Orders: Basic Metabolic Panel (Routine) Timeframe: 20230226 Location: None Selected Ordered By: Lilly Merritt Discharge Data Discharge Date/Time-TO BE ENTERED AT DEPARTURE: 02/24/23 14:29 DS: Summary Time Spent with Patient providing and/or coordinating discharge services: Greater than 30 minutes Status at Discharge Functional status at discharge: bed bound Overall status at discharge: patient is back to baseline Mental Status: mental status grossly normal Speech and Movement: speech and movement normal Mood: congruent mood Affect: normal affect Exam Const General: cooperative, not healthy appearing, well developed and ill appearing acutely and chronically Nutritional Appearance: average body habitus and other (appears pale, weak) Orientation: alert, awake and oriented x3 HENMT Head: normal to inspection, normocephalic and atraumatic Mouth: oral mucosae normal and mucous membranes dry (dry) Eyes General: appearance normal, both eyes and all related structures Alignment and Position: alignment normal Periorbital: periorbital findings normal Eyelids: eyelids normal Sclera: sclerae normal Cornea: corneas normal Pupils: PERRL EOM: EOM intact bilaterally Neck Neck: normal visual inspection, full ROM and no lymphadenopathy Chest Chest: other (s/p mastectomy, 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) Resp Effort & Inspection: normal respiratory effort, able to speak in complete sentences and no respiratory distress Auscultation: clear to auscultation bilaterally, no rales, no rhonchi and no wheezes Cardio Rate: regular rate Rhythm: regular rhythm Heart Sounds: S1 normal and S2 normal GI Inspection: normal to inspection and non-distended Palpation: soft, not firm, no guarding, not rigid and nontender Percussion: normal to percussion Skin Lesions: lesion noted (right buttocks, debrided by surgery - see their note for dimensions) Other: Pressure injuries to bottom, unknown how deep but definately full thickness, no signs of infection Neuro General: patient alert, patient awake and patient oriented x3 Cognition: normal cognition Speech: speech normal Gait: other (quadriplegia, arms in semiflex position with slight tremor) Motor: muscle tone normal throughout Sensory Exam: other (insensate arms/legs) Extrem General: normal to inspection, capillary refill normal, no pedal edema and no calf tenderness Psych Mental Status: mental status grossly normal Speech and Movement: speech and movement normal Mood: congruent mood Affect: normal affect DS: Data Vitals/I&O Vitals and I&O: Vital Signs Temperature 35.9 C L 02/24/23 07:31 Temperature Source Tympanic 02/24/23 07:31 Pulse 65 02/24/23 07:31 Pulse Rhythm Regular 02/24/23 09:04 Pulse 79 02/13/23 22:30 Respiratory Rate 18 02/24/23 03:42 Respiratory Effort Normal, Non-Labored 02/24/23 09:04 Respiratory Depth Normal 02/24/23 09:04 Respiratory Pattern Normal 02/24/23 09:04 Blood Pressure 162/86 H 02/24/23 07:31 Blood Pressure Mean 87 02/13/23 22:01 Blood Pressure Position Supine 02/13/23 19:48 Pulse Oximetry 97 02/24/23 07:31 Oxygen Delivery Method Room Air 02/24/23 07:31 Oxygen Flow Rate 0 02/24/23 07:31 Pain Level 0 02/24/23 03:42 Comment Pt. denies pain at this time. 02/22/23 07:00 Intake & Output 02/24/23 02/24/23 02/25/23 11:59 23:59 11:59 Output Total 400 / 400 Balance -400 / -400 Weight 79 kg Output: Urine 400 / 400 Other: Urine Color Dark Pilar Urine Appearance Clear Data Completed and Pending Labs on day of discharge: Labs from last 24 hours 02/24/23 02/24/23 10:25 10:25 WBC 5.23 RBC 3.06 L Hgb 9.8 L Hct 31.6 L MCV 103 H MCH 32.0 MCHC 31.0 L RDW 14.5 Plt Count 179 MPV 9.4 Immature Gran % 0.6 Neutrophils % 52.3 Lymphocytes % 38.4 Monocytes % 5.0 Eosinophils % 3.1 Basophils % 0.6 Nucleated RBC % 0.0 Absolute Neutrophils 2.74 Absolute Lymphocytes 2.01 Absolute Monocytes 0.26 Absolute Eosinophils 0.16 Absolute Basophils 0.03 Sodium 141 Potassium 4.3 Chloride 108 H Carbon Dioxide 25.9 Anion Gap 7.1 BUN 17 Creatinine 0.8 Est GFR (CKD-EPI 2020) 73.52 Glucose 150 H Calcium 8.4 L PFSH All Active Problems (Updated 02/25/23 @ 00:05 by SHERRI FREIRE) Depression (Chronic) Yeast cystitis (Acute) Pleural thickening (Acute) Pleural effusion (Acute) Pressure ulcer (Acute) Quadriplegia (Acute) Constipation (Acute) Shortness of breath (Acute) Pneumonia (Acute) Acute UTI (Acute) Spinal stenosis, lumbar (Acute) Primary malignant neoplasm of breast (Acute) Neurogenic claudication (Acute) Hypothyroidism (Chronic) Hypertension (Chronic) Constipation due to neurogenic bowel (Acute) Benign neoplasm of colon (Acute) Autonomic dysreflexia (Acute) Arm edema (Acute) Nail dystrophy (Acute) UTI (urinary tract infection) (Acute) Transaminitis (Acute) Bladder spasm (Acute) COVID-19 ruled out (Acute) Neuropathic pain of finger of right hand (Acute) Fungal dermatitis (Acute) Chronic suprapubic catheter (Chronic) Hypomagnesemia (Acute) Acute UTI (Acute) Infiltrate of lung present on imaging of chest (Acute) UTI (urinary tract infection) (Acute) Hyperlipemia (Chronic) Intracranial aneurysm (Chronic) AAA (abdominal aortic aneurysm) (Chronic) Suprapubic catheter (Chronic) Diabetes mellitus (Chronic) Neurogenic bladder (Chronic) Paraplegia (Chronic) Medical History Cervical disc disorder CTS (carpal tunnel syndrome) left wrist ESBL (extended spectrum beta-lactamase) producing bacteria infection History of breast cancer Interstitial lung disease Surgical History H/O breast surgery H/O cervical spine surgery S/P cholecystectomy S/P rotator cuff repair S/P trigger finger release S/P tubal ligation Social History Smoking/Tobacco Use Status: Former Tobacco Use Quit Date: 08/17/06 Pack-years: 40 Smoking risk assessment performed?: Yes Alcohol Intake: never Drug use: Never Substance use type: does not use Housing: house Current gender identity: female Do you feel safe at home: Yes Do you feel safe in your relationship?: Yes Additional Social history: lives with her in [place], [place]. Has home health. Time Spent with Patient Time Spent with Patient: 70-84 minutes4 Time was spent: preparing to see the patient(eg.review tests), ordering medications,tests, procedures, referring, communicating with other health team primary care physician, indepentently interpreting results, counseling the patient and care coordination
--- NOTE | 2023-02-24 16:44 | CMDISCH_ITS ---
Date of service: 02/24/23 Time of Service: 16:44 LACE Index Scoring Tool Questions: Length of Stay (in days): 7 - 13 Was the patient admitted via the E.D.?: Yes Comorbidities: Diabetes w/o Complication and Any Tumor E.D. Visits: 6 Answers: Total Score: 15 Risk of Readmission: High Risk Care Management Discharge Plan Reason for Hospitalization: hyponatremia Discharge Plan: Gerardo will be discharged home with a resumption of caregiver and Home Health services through [facility]. She will follow up with her PCP and plan of care as instructed following discharge. She will be transported home by ambulance ([facility]) coordinated by CM. Patient/Family Education Needs: Review of discharge instructions, activity, restrictions (fluid intake), follow up plan and and discuss Ask Me Three. Services Needed at Discharge: Home Health Care Services
== END 2023-02-24 14:29 | disposition home or self-care (01) | DRG 622 ==
LOC: ER 20:39 → MS 23:04
PROVIDERS: Internal Medicine; Nurse Practitioner Family; Surgery; Admitting Provider Family Medicine; Emergency Provider Physician Assistant; PCP Nurse Practitioner Family; Visit Provider Family Medicine
PROC: 0JB70ZZ Excision of Back Subcutaneous Tissue and Fascia, Open Approach (ICD-10-PCS; CPT 11043; principal; 2023-02-23 13:00)
DX: E22.2 Syndrome of inappropriate secretion of antidiuretic hormone (principal); G82.50 Quadriplegia, unspecified; J84.9 Interstitial pulmonary disease, unspecified; K59.2 Neurogenic bowel, not elsewhere classified; N39.0 Urinary tract infection, site not specified; I10 Essential (primary) hypertension; E03.9 Hypothyroidism, unspecified; E11.9 Type 2 diabetes mellitus without complications; Z93.59 Other cystostomy status; J92.9 Pleural plaque without asbestos; F32.A Depression, unspecified; I95.9 Hypotension, unspecified; K59.00 Constipation, unspecified; Z85.3 Personal history of malignant neoplasm of breast; M48.062 Spinal stenosis, lumbar region with neurogenic claudication; K59.09 Other constipation; N31.9 Neuromuscular dysfunction of bladder, unspecified; R74.01 Elevation of levels of liver transaminase levels; G90.4 Autonomic dysreflexia; R60.0 Localized edema; E78.5 Hyperlipidemia, unspecified; I71.40 Abdominal aortic aneurysm, without rupture, unspecified; I67.1 Cerebral aneurysm, nonruptured; Z79.84 Long term (current) use of oral hypoglycemic drugs; R50.9 Fever, unspecified; L89.156 Pressure-induced deep tissue damage of sacral region; L89.222 Pressure ulcer of left hip, stage 2; B96.5 Pseudomonas (aeruginosa) (mallei) (pseudomallei) as the cause of diseases classified elsewhere
CPT/HCPCS: 11043; 36410; 36415; 36569; 80048; 80051; 80053; 80400; 82533; 83935; 84145; 85027; 87040; 87077; 87635; 87798; 93005; J1650; 71045; 81003; 81015; 82565; 83605; 83735; 83880; 83930; 84295; 84300; 85025; 85049; 86618; 87086; 87186; 93010; 99232; 99233; 99239; J1940; J1941; J3475; J3490

== ENCOUNTER 2023-03-03 10:10 | Inpatient (IN) | payer OTHER, SELFPAY ==
[2023-03-03] VITALS (40 sets, daily range): BP systolic 122–170; BP diastolic 66–125; PULSE 68–97; RESP 18–40; TEMP 36.3–37.1; O2SAT 87–99
--- NOTE | 2023-03-03 10:00 | RT.EKG_ITS ---
APPROVED REPORT Exam: Resting ECG Reason for Exam: hypotension Patient Location: E HR:96 bpm ECG Measurements Heart Rate 96 AXIS NJ 154 P 65 QRSd 87 QRS 21 QT 334 T 24 QTc 423 Conclusion Sinus rhythm...normal P axis, V-rate 60- 99 Multiple ventricular premature complexes...V complexes w/ short R-R intervls Probable left atrial enlargement...P >50mS, <-0.10mV V1
[2023-03-03 10:53] LABS: Bilirubin Moderate (Negative); Blood Large (Negative); Clarity Turbid (Clear); Glucose Negative (Negative); Ketones 15 mg/dL (Negative); Leukocyte Esterase Moderate (Negative); Nitrite Negative (Negative); Urobilinogen 0.2 mg/dL (Up to 0.2)
--- NOTE | 2023-03-03 11:00 | DI.RAD_ITS ---
Exam(s) XR PORTABLE CHEST AP EXAM: XR PORTABLE CHEST AP CLINICAL HISTORY: fever TECHNIQUE: 2D digital imaging was performed of the chest. One image was obtained. An AP view was ob tained. COMPARISON: CR,XR XR PORTABLE CHEST AP from 02/17/2023 FINDINGS: MEDIASTINUM: Normal. HEART: Normal. PULMONARY VASCULATURE: Normal. LUNGS: Stable pulmonary fibrosis. No focal consolidating infiltrates. PLEURAL SPACE: No pleural effusion or pneumothorax. BONE:Within normal limits for the patient's age. Posterior cervical spine surgery. Degenerative coombs ges in the shoulders bilaterally. OTHER FINDINGS:Normal. IMPRESSION: No acute pulmonary findings. DATA REPOSITORY: RADIATION DOSE DELIVERED:
[2023-03-03 11:05] LABS: Epithelial Cells Negative HPF (Negative); Other Cells Few Transitional (Negative); RBC 20-50 HPF (0-2); WBC >50 HPF (0-5)
[2023-03-03] MEDS: Normal Saline 1,000 ML 1000 ML IV (11:05)
--- NOTE | 2023-03-03 11:05 | W.ED.GENAD ---
Discharge Plan Disposition Patient Disposition: Admit to [facility] Condition: Stable Discharge Details Chief Complaint: AMS/LOC Clinical Impression: General weakness, Acute UTI Primary Care Provider: Nida Farooq ED Provider: Orestes Rhoades [place] Meds and New Rx's Prescriptions: No Action magnesium oxide 400 mg magnesium capsule 400 mg PO BID AZO D-Mannose 500 mg capsule 1,000 mg PO BID cyanocobalamin (vitamin B-12) 1,000 mcg capsule 1,000 mcg PO DAILY lidocaine 5 % cream 1 applic topical TID PRN calcium carbonate-vitamin D3 [Calcium 500 With D] 500 mg(1,250mg) -400 unit Tablet 1 tab PO BID gabapentin 600 mg tablet 600 mg PO HS Rx Instructions: (in addition 400mg BID @ ,) Renacidin 1,980.6 mg-59.4 mg-980.4mg/30mL solution 30 ml irrigation DAILY levothyroxine 75 mcg tablet 75 mcg PO QAM sennosides [senna] 8.6 mg Tablet 8.6 mg PO QHS omeprazole 20 mg Tablet,Delayed Release (Dr/Ec) 20 mg PO DAILY ondansetron 4 mg tablet,disintegrating 4 mg PO Q8H PRNQty: 10 0RF Myrbetriq 50 mg Tablet Extended Release 24 Hr 50 mg PO DAILY fluconazole 200 mg tablet 200 mg PO DAILY Qty: 14 0RF multivitamin Tablet 1 tab PO DAILY metformin 500 mg Tablet 1,000 mg PO BID atorvastatin 10 mg Tablet 10 mg PO HS aspirin 81 mg Tablet,Delayed Release (Dr/Ec) 81 mg PO DAILY baclofen 10 mg tablet 20 mg PO TID acetaminophen 500 mg tablet 1,000 mg PO TID PRN gabapentin [Neurontin] 400 mg capsule 400 mg PO BID Rx Instructions: @ 08 & noon (in addition to 600mg qHS) nystatin 100,000 unit/gram Powder 60 g topical TID Qty: 60 0RF Thermotabs 287-180-15 mg Tablet 2 tab PO TID Qty: 60 0RF mirtazapine 7.5 mg tablet 7.5 mg PO QHS Qty: 30 0RF Medical Decision Making 82 yo female with hx of quadriplegia, frequent uti's in the setting of a suprapubic catheter, recent admission for uti and hypoantremia, comes in after her pcp's office did a home visit and found her lethargic with a temp of 100.2 which started in the last day. Pt arrives with stable vitals, she is alert and oriented x4 but does seem globally weak and will only answer in 1-2 word answers due to fatigue. She denies headache, chest pain, dyspnea though she has noted a cough and on room air is 87%. She has diminished breath sounds at the bases bilaterally, soft nontender abdomen. No neck pain or discomfort. Unclear etiology for her symptoms but suspect sepsis or possible hyponatremia, will obtain cbc, cmp, fluvid, procalcitonin, lactate, ua and cxr and reassess. labs unremarkable other then mag of 1.5 and urine with possible uti though could be colonized, and xray unremarkable. Pt stable though still fatigued, discussed with family outpatient management vs admission and they are not comfortable with bringing her home. Discused with hospitalist, her suprapubic catheter will be replaced and will start cefepime. Differential Diagnosis Differential Diagnosis: uti, pneumonia, hyponatremia Medical Records Medical records reviewed: Yes I reviewed the patient's medical records. Lab Data Lab results reviewed: Yes I reviewed the patient's lab results. ECG Data Attestation: I personally reviewed and interpreted this ECG (s) as follows: Prior ECG tracings: available for review Interpretation: sinus rate of 96 pvc's no stemi HPI General Mode of arrival: EMS. Date/Time Provider Initiated Documentation: 03/03/23 10:35. Information obtained by: patient and EMS. History of Present Illness 82 year old F presents to the emergency department with the chief complaint of fever, described as moderate, Patient started experiencing this day(s) (1) and it has been constant. No relieving factors improve symptom(s), No exacerbating factors reported . Patient notes fever/chills and weakness. Patient did receive the following treatments prior to arrival, none Related Data Home Medications Medication Instructions Recorded Confirmed aspirin 81 mg tablet,delayed 81 mg PO DAILY 06/23/18 03/03/23 release atorvastatin 10 mg tablet 10 mg PO HS 06/23/18 03/03/23 metformin 500 mg tablet 1,000 mg PO BID 06/23/18 03/03/23 multivitamin 1 tab PO DAILY 06/23/18 03/03/23 calcium carbonate 500 mg-vitamin 1 tab PO BID 06/16/19 03/03/23 D3 10 mcg (400 unit) tablet (Calcium 500 With D) citric ac 1980.6 mg-glucono 59.4 30 ml irrigation DAILY 12/21/19 03/03/23 mg-mag carb 980.4 mg/30 mL irrig.soln (Renacidin) baclofen 10 mg tablet 20 mg PO TID 06/24/22 03/03/23 acetaminophen 500 mg tablet 1,000 mg PO TID PRN 08/25/22 03/03/23 cyanocobalamin (vitamin B-12) 1,000 mcg PO DAILY 08/25/22 03/03/23 1,000 mcg capsule d-mannose 500 mg capsule (AZO 1,000 mg PO BID 08/25/22 03/03/23 D-Mannose) gabapentin 400 mg capsule 400 mg PO BID 08/25/22 03/03/23 (Neurontin) gabapentin 600 mg tablet 600 mg PO HS 08/25/22 03/03/23 lidocaine 5 % topical cream 1 applic topical TID PRN 08/25/22 03/03/23 magnesium oxide 400 mg PO BID 08/25/22 03/03/23 levothyroxine 75 mcg tablet 75 mcg PO QAM 12/03/22 03/03/23 omeprazole 20 mg tablet,delayed 20 mg PO DAILY 12/03/22 03/03/23 release sennosides 8.6 mg tablet (senna) 8.6 mg PO QHS 12/03/22 03/03/23 ondansetron 4 mg disintegrating 4 mg PO Q8H PRN #10 tabs 12/05/22 03/03/23 tablet mirabegron 50 mg tablet,extended 50 mg PO DAILY 02/06/23 03/03/23 release 24 hr (Myrbetriq) fluconazole 200 mg tablet 200 mg PO DAILY #14 tabs 02/09/23 03/03/23 nystatin 100,000 unit/gram topical 60 g topical TID #60 grams 02/20/23 03/03/23 powder sodium chloride-potassium chloride 2 tab PO TID #60 tabs 02/20/23 03/03/23 287 mg-180 mg-15 mg tablet (Thermotabs) mirtazapine 7.5 mg tablet 7.5 mg PO QHS #30 tabs 02/25/23 03/03/23 Previous Rx's Medication Instructions Recorded ondansetron 4 mg disintegrating 4 mg PO Q8H PRN #10 tabs 12/05/22 tablet fluconazole 200 mg tablet 200 mg PO DAILY #14 tabs 02/09/23 nystatin 100,000 unit/gram topical 60 g topical TID #60 grams 02/20/23 powder sodium chloride-potassium chloride 2 tab PO TID #60 tabs 02/20/23 287 mg-180 mg-15 mg tablet (Thermotabs) mirtazapine 7.5 mg tablet 7.5 mg PO QHS #30 tabs 02/25/23 Allergies Allergy/AdvReac Type Severity Reaction Status Date / Time ibuprofen AdvReac Mild Nausea Unverified 02/05/23 13:14 General Stated Complaint: AMS/LOC BEVERLY: 2 Review of Systems All systems reviewed & are unremarkable except as noted in HPI and below Constitutional Constitutional: Denies chills, Reports fever(s) and Reports weakness Cardiovascular Cardiovascular: Denies chest pain and Denies dyspnea Respiratory Respiratory: Reports cough and Denies dyspnea Gastrointestinal Gastrointestinal: Denies abdominal pain, Denies nausea and Denies vomiting Musculoskeletal Musculoskeletal: Denies joint swelling Integumentary/Breasts Skin/Breast: Denies rash Neurologic Neurologic: Reports weakness PFSH All Active Problems (Updated 03/03/23 @ 15:34 by Orestes Rhoades MD) General weakness (Acute) Acute UTI (Acute) Discharge planning issues (Acute) DVT prophylaxis (Acute) Former cigarette smoker (Acute) Depression (Chronic) Yeast cystitis (Acute) Pleural thickening (Acute) Pleural effusion (Acute) Pressure ulcer (Acute) Quadriplegia (Acute) Constipation (Acute) Shortness of breath (Acute) Pneumonia (Acute) Acute UTI (Acute) Spinal stenosis, lumbar (Acute) Primary malignant neoplasm of breast (Acute) Neurogenic claudication (Acute) Hypothyroidism (Chronic) Hypertension (Chronic) Constipation due to neurogenic bowel (Acute) Benign neoplasm of colon (Acute) Autonomic dysreflexia (Acute) Arm edema (Acute) Nail dystrophy (Acute) UTI (urinary tract infection) (Acute) Transaminitis (Acute) Bladder spasm (Acute) COVID-19 ruled out (Acute) Neuropathic pain of finger of right hand (Acute) Fungal dermatitis (Acute) Chronic suprapubic catheter (Chronic) Hypomagnesemia (Acute) Acute UTI (Acute) Infiltrate of lung present on imaging of chest (Acute) UTI (urinary tract infection) (Acute) Hyperlipemia (Chronic) Intracranial aneurysm (Chronic) AAA (abdominal aortic aneurysm) (Chronic) Suprapubic catheter (Chronic) Diabetes mellitus (Chronic) Neurogenic bladder (Chronic) Paraplegia (Chronic) Medical History (Updated 03/03/23 @ 15:34 by Orestes Rhoades MD) Cervical disc disorder CTS (carpal tunnel syndrome) left wrist ESBL (extended spectrum beta-lactamase) producing bacteria infection History of breast cancer Interstitial lung disease Surgical History (Updated 02/27/23 @ 09:36 by Kathryn Chavez) H/O breast surgery H/O cervical spine surgery S/P cholecystectomy S/P excisional debridement (~02/2023) S/P rotator cuff repair S/P trigger finger release S/P tubal ligation Social History Smoking/Tobacco Use Status: Former Tobacco Use Quit Date: 08/17/06 Pack-years: 40 Smoking risk assessment performed?: Yes Alcohol Intake: never Drug use: Never Substance use type: does not use Housing: house Current gender identity: female Do you feel safe at home: Yes Do you feel safe in your relationship?: Yes Additional Social history: lives with her in [place], [place]. Has home health. Exam Const General: no acute distress Orientation: alert HENID Head: normal to inspection Ears: external ears normal General nose exam: external nose normal Mouth: moist mucous membranes Eyes General: appearance normal, both eyes and all related structures Neck Neck: normal visual inspection Resp Effort & Inspection: other (diminished at the bases bilaterally) Cardio Jugular venous pressure: no JVD Rate: regular rate Skin General skin exam: no rashes or lesions noted Neuro General: patient alert and patient oriented x3 Extrem General: normal to inspection Course Vital Signs Vital signs: Vital Signs Temperature 36.5 C 03/03/23 10:09 Pulse 92 H 03/03/23 10:09 Respiratory Rate 28 H 03/03/23 10:09 Blood Pressure 170/74 H 03/03/23 10:09 Pulse Oximetry 95 03/03/23 10:09 Temperature 36.5 C 03/03/23 10:09 Temperature Source Temporal Artery Scan 03/03/23 10:09 Pulse 92 H 03/03/23 10:09 Pulse 94 H 03/03/23 10:30 Respiratory Rate 27 H 03/03/23 10:30 Respiratory Effort Normal 03/03/23 10:18 Respiratory Depth Normal 03/03/23 10:18 Respiratory Pattern Normal 03/03/23 10:18 Blood Pressure 170/74 H 03/03/23 10:09 Pulse Oximetry 95 03/03/23 10:09 Oxygen Delivery Method Nasal Cannula 03/03/23 10:09 Lab/Test Results Lab/Test Results: 03/03/23 10:13 Blood Blood Culture - Pending 03/03/23 10:13 Blood Blood Culture - Pending Laboratory Tests Range/Units 03/03/23 10:40 Urine Color (Yellow) Yellow Urine Clarity (Clear) Turbid Urine pH (5-8) 6.0 Ur Specific [place] (1.005-1.025) 1.020 Urine Protein (Negative) mg/dL >=300 H Urine Ketones (Negative) mg/dL 15 H Urine Blood (Negative) Large H Urine Nitrite (Negative) Negative Urine Bilirubin (Negative) Moderate H Urine Urobilinogen (Up to 0.2) mg/dL 0.2 Ur Leukocyte Esterase (Negative) Moderate H Urine Glucose (Negative) mg/dL Negative
[2023-03-03 11:06] LABS: Bacteria Many HPF (Negative); C & S Indicated? Yes; Casts Negative LPF (Negative); Crystals Negative HPF (Negative); Mucus Trace (Negative)
[2023-03-03 11:12] LABS: Abs Immature Grans 0.05 10^3/uL (0.0-0.06); Absolute Basophil Count 0.05 10^3/uL (0.0-0.2); Absolute Eosinophil Count 0.04 10^3/uL (0.0-0.7); Absolute Lymphocyte Count 3.39 10^3/uL (1.2-3.4); Absolute Monocyte Count 0.36 10^3/uL (0.1-0.8); Absolute Neutrophil Count 4.07 10^3/uL (1.2-6.7); Basophils % 0.6; Eosinophils % 0.5; HCT 32.5 % (36.0-46.0); HGB 10.7 g/dL (11.2-15.7); Immature Grans % 0.6; Lymphocytes % 42.6; MCH 32.8 pg (27.0-33.0); MCHC 32.9 % (32.0-36.0); MCV 100 fL (80-95); MPV 9.6 fL (8.0-11.0); Monocytes % 4.5; Neutrophils % 51.2; Platelet Count 161 10^3/uL (130-400); RBC 3.26 10^6/uL (3.93-5.22); RDW 14.3 % (11.7-14.6); RDW-SD 52.1 fL; WBC 7.96 10^3/uL (4.4-10.8)
[2023-03-03 11:13] LABS: BE (Venous) 3 mmol/L (-2-3); HCO3 (Venous) 27 mmol/L (23-28); O2 Sat (Venous) 92 %; TCO2 (Venous) 25 mmol/L (24-29); pCO2 (Venous) 43 mmHg (41-51); pH (Venous) 7.41 (7.31-7.41); pO2 (Venous) 58 mmHg
[2023-03-03 11:16] LABS: Lactate 0.8 mmol/L (0.6-1.4)
[2023-03-03 11:27] LABS: INR 1.1 (0.9-1.1); PTT Activated 25.1 sec (21.5-31.9); Prothrombin Time 11.1 sec (9.3-11.0)
[2023-03-03 11:43] LABS: ALT 27 U/L (14-59); AST 27 U/L (15-37); Alkaline Phosphatase 55 U/L (46-116); Anion Gap 6.7 mmol/L (3-11); BUN 12 mg/dL (7-18); Bilirubin, Total 0.6 mg/dL (0.2-1.0); CO2 27.3 mmol/L (21.0-32.0); CREATININE 0.9 mg/dL (0.55-1.02); Calcium 8.6 mg/dL (8.5-10.1); Chloride 104 mmol/L (98-107); Estimated GFR 63.83 (mL/min/1.73m2); Glucose 121 mg/dL (74-106); Magnesium 1.5 mg/dL (1.8-2.4); Potassium 4.7 mmol/L (3.5-5.1); Sodium 138 mmol/L (136-145); TSH (W/Ref FT4) 2.56 uIU/mL (0.36-3.74); Total Protein 6.3 g/dL (6.4-8.2); Troponin I < 50 ng/L (<or=60)
[2023-03-03 11:51] LABS: Procalcitonin 0.1 ng/mL
[2023-03-03 12:08] LABS: COVID-19 PCR Negative (Negative); Influenza A PCR Negative (Negative); Influenza B PCR Negative (Negative); RSV PCR Negative (Negative)
--- NOTE | 2023-03-03 12:08 | NUR.NOTE ---
Nursing Note: Home health in [place] called, updated on patient, they would like us to let them know if she is admitted. Elisha Quezada
[2023-03-03 12:10] LABS: Source Nasopharynx
--- NOTE | 2023-03-03 14:19 | HPE_ITS ---
Date of service: 03/03/23 Time of Service: 14:19 Assessment and Plan Assessment and plan (1) Acute UTI: Status: Acute Assessment and plan: Associated with an indwelling catheter, present on admission. Treat empirically with cefepime. Await blood and urine c&S. Suprapubic catheter texchanged today. (2) Neurogenic bladder: Status: Chronic Assessment and plan: As above (3) Suprapubic catheter: Status: Chronic Assessment and plan: As above (4) Diabetes mellitus: Status: Chronic Assessment and plan: Continue metformin; start SSI. Carb consistent diet. 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 It looks like she was seen in Pulmonology clinic on 02/28. We will follow up on the status of that PET CT. (6) Dysphagia: Status: Acute Assessment and plan: C/s speech therapy. Suspect this is related to weakness. (7) Pressure ulcer: Status: Acute Assessment and plan: Present on admission. C/s wound care. (8) DVT prophylaxis: Status: Acute Assessment and plan: Sc enoxaparin (9) Discharge planning issues: Status: Acute Assessment and plan: Full code C/s PT. History of Present Illness History of Present Illness Chief Complaint: Fatigue x several days Narrative: Ms Almaraz is an 82 year old female with PMHx of quadroplegia w/ h/o neurogenic bladder and bowel, s/p suprapubic catheter, as well as h/o prior UTIs, NIDDM2, HTN, hyperlipidemia, who was brought to [facility] ED today with several days of worsening fatigue, poor PO intake, sleepiness, and weakness to the point that the family does not feel comfortable taking the patient home. Family notes that the patient has also had a harder time swallowing pills lately. She has been adhering to her free water restriction. It is unclear whether the patient's temperature at home was 100.2 or 102 degrees, as reported differently by home health nursing vs family. In the ED, she is afebrile, and her workup is consistent with an acute UTI. Due to her history of having a pseudomonas infection in the past, she is being initiated on cefepime, and a hospitalist admission was requested. I have asked for the suprapubic catheter to be exchanged. When she had a CT of the chest/abdomen/pelvis in January, there was no evidence of stones or obstructive uropathy. Review of Systems All systems reviewed & are unremarkable except as noted in HPI and below PFSH All Active Problems (Updated 03/03/23 @ 18:27 by Lauren Curtis MD) Dysphagia (Acute) General weakness (Acute) Acute UTI (Acute) Discharge planning issues (Acute) DVT prophylaxis (Acute) Former cigarette smoker (Acute) Depression (Chronic) Yeast cystitis (Acute) Pleural thickening (Acute) Pleural effusion (Acute) Pressure ulcer (Acute) Quadriplegia (Acute) Constipation (Acute) Shortness of breath (Acute) Pneumonia (Acute) Acute UTI (Acute) Spinal stenosis, lumbar (Acute) Primary malignant neoplasm of breast (Acute) Neurogenic claudication (Acute) Hypothyroidism (Chronic) Hypertension (Chronic) Constipation due to neurogenic bowel (Acute) Benign neoplasm of colon (Acute) Autonomic dysreflexia (Acute) Arm edema (Acute) Nail dystrophy (Acute) UTI (urinary tract infection) (Acute) Transaminitis (Acute) Bladder spasm (Acute) COVID-19 ruled out (Acute) Neuropathic pain of finger of right hand (Acute) Fungal dermatitis (Acute) Chronic suprapubic catheter (Chronic) Hypomagnesemia (Acute) Acute UTI (Acute) Infiltrate of lung present on imaging of chest (Acute) UTI (urinary tract infection) (Acute) Hyperlipemia (Chronic) Intracranial aneurysm (Chronic) AAA (abdominal aortic aneurysm) (Chronic) Suprapubic catheter (Chronic) Diabetes mellitus (Chronic) Neurogenic bladder (Chronic) Paraplegia (Chronic) Medical History (Updated 03/03/23 @ 18:27 by Lauren Curtis MD) Cervical disc disorder CTS (carpal tunnel syndrome) left wrist ESBL (extended spectrum beta-lactamase) producing bacteria infection History of breast cancer Interstitial lung disease Surgical History (Updated 02/27/23 @ 09:36 by Kathryn Chavez) H/O breast surgery H/O cervical spine surgery S/P cholecystectomy S/P excisional debridement (~02/2023) S/P rotator cuff repair S/P trigger finger release S/P tubal ligation Social History Smoking/Tobacco Use Status: Former Tobacco Use Quit Date: 08/17/06 Pack-years: 40 Smoking risk assessment performed?: Yes Alcohol Intake: never Drug use: Never Substance use type: does not use Housing: house Current gender identity: female Do you feel safe at home: Yes Do you feel safe in your relationship?: Yes Additional Social history: lives with her in [place], [place]. Has home health. Meds Allergies and Home Medications Allergies Allergy/AdvReac Type Severity Reaction Status Date / Time ibuprofen AdvReac Mild Nausea Unverified 02/05/23 13:14 Home Medications Medication Instructions Recorded Confirmed Type aspirin 81 mg tablet,delayed 81 mg PO DAILY 06/23/18 03/03/23 History release atorvastatin 10 mg tablet 10 mg PO HS 06/23/18 03/03/23 History metformin 500 mg tablet 1,000 mg PO BID 06/23/18 03/03/23 History multivitamin 1 tab PO DAILY 06/23/18 03/03/23 History calcium carbonate 500 mg-vitamin 1 tab PO BID 06/16/19 03/03/23 History D3 10 mcg (400 unit) tablet (Calcium 500 With D) citric ac 1980.6 mg-glucono 59.4 30 ml irrigation DAILY 12/21/19 03/03/23 History mg-mag carb 980.4 mg/30 mL irrig.soln (Renacidin) baclofen 10 mg tablet 20 mg PO TID 06/24/22 03/03/23 History acetaminophen 500 mg tablet 1,000 mg PO TID PRN 08/25/22 03/03/23 History cyanocobalamin (vitamin B-12) 1,000 mcg PO DAILY 08/25/22 03/03/23 History 1,000 mcg capsule d-mannose 500 mg capsule (AZO 1,000 mg PO BID 08/25/22 03/03/23 History D-Mannose) gabapentin 400 mg capsule 400 mg PO BID 08/25/22 03/03/23 History (Neurontin) gabapentin 600 mg tablet 600 mg PO HS 08/25/22 03/03/23 History lidocaine 5 % topical cream 1 applic topical TID PRN 08/25/22 03/03/23 History magnesium oxide 800 mg PO BID 08/25/22 03/03/23 History levothyroxine 75 mcg tablet 50 mcg PO QAM 12/03/22 03/03/23 History omeprazole 20 mg tablet,delayed 20 mg PO DAILY 12/03/22 03/03/23 History release sennosides 8.6 mg tablet (senna) 8.6 mg PO QHS 12/03/22 03/03/23 History ondansetron 4 mg disintegrating 4 mg PO Q8H PRN #10 tabs 12/05/22 03/03/23 Rx tablet mirabegron 50 mg tablet,extended 25 mg PO DAILY 02/06/23 03/03/23 History release 24 hr (Myrbetriq) fluconazole 200 mg tablet 200 mg PO DAILY #14 tabs 02/09/23 03/03/23 Rx nystatin 100,000 unit/gram topical 60 g topical TID #60 grams 02/20/23 03/03/23 Rx powder sodium chloride-potassium chloride 2 tab PO TID #60 tabs 02/20/23 Rx 287 mg-180 mg-15 mg tablet (Thermotabs) mirtazapine 7.5 mg tablet 7.5 mg PO QHS #30 tabs 02/25/23 03/03/23 Rx acetaminophen 325 mg capsule 650 mg PO PRN PRN 03/03/23 03/03/23 History camphor-menthol 0.2 %-3.5 % 1 applic topical Q2H 03/03/23 03/03/23 History topical gel cetirizine 10 mg capsule 10 mg PO PRN PRN 03/03/23 03/03/23 History diclofenac sodium 1 % topical gel 1 applic topical QID 03/03/23 03/03/23 History docusate sodium-benzocaine 283 1 ea [place] DAILY 03/03/23 03/03/23 History mg-20 mg enema epinephrine 0.3 mg/0.3 mL 0.3 mg IM PRN PRN 03/03/23 03/03/23 History injection, auto-injector lisinopril 2.5 mg tablet 2.5 mg PO DAILY 03/03/23 03/03/23 History meclizine 25 mg tablet 25 mg PO PRN PRN 03/03/23 03/03/23 History naltrexone 50 mg tablet 1.5 mg PO DAILY 03/03/23 03/03/23 History zinc oxide-cod liver oil topical 1 applic topical BID 03/03/23 03/03/23 History ointment Exam Narrative Exam Narrative: General: Tired/weak appearing elderly female who is A&Ox3, appears ill Neurological: A&Ox3, quadraplegic with contracted upper extremities Psychiatric: Appropriate speech pattern/content Skin: Visible skin intact; I was unable to examine her sacral area, but per ER provider report, she does appear to have non-infected sacral decubitous wounds HEENT: Atraumatic, normocephalic, EOMI, dry MM, white film over tongue, no submandibular or cervical lymphadenopathy, no goiter or JVD Cardiovascular: RRR, no m/r/g Lungs: CTAB Gastrointestinal: soft, nontender, nondistended Genitourinary: has a suprapubic catheter Extremities: no edema BLEs, B foot drop; B feet in heel protective socks Results Imaging Additional studies: CXR; No acute pulmonary findings. EKG: ST, HR 96, PVCs, no acute ischemia Labs 03/03/23 11:00 03/03/23 11:00 Labs: Laboratory Results - last 24 hr 03/03/23 03/03/23 03/03/23 10:40 11:00 11:00 WBC RBC Hgb Hct MCV MCH MCHC RDW Plt Count MPV Immature Gran % Neutrophils % Lymphocytes % Monocytes % Eosinophils % Basophils % Nucleated RBC % Absolute Neutrophils Absolute Lymphocytes Absolute Monocytes Absolute Eosinophils Absolute Basophils PT INR APTT VBG pH VBG pCO2 VBG pO2 VBG HCO3 VBG Total CO2 VBG O2 Saturation VBG Base Excess VBG Lactate 0.8 Sodium 138 Potassium 4.7 Chloride 104 Carbon Dioxide 27.3 Anion Gap 6.7 BUN 12 Creatinine 0.9 Est GFR (CKD-EPI 2020) 63.83 Glucose 121 H Calcium 8.6 Magnesium 1.5 L Total Bilirubin 0.6 AST 27 ALT 27 Alkaline Phosphatase 55 Troponin I < 50 Total Protein 6.3 L Albumin 3.0 L Procalcitonin 0.1 TSH 2.56 Urine Color Yellow Urine Clarity Turbid Urine pH 6.0 Ur Specific [place] 1.020 Urine Protein >=300 H Urine Ketones 15 H Urine Blood Large H Urine Nitrite Negative Urine Bilirubin Moderate H Urine Urobilinogen 0.2 Ur Leukocyte Esterase Moderate H Urine RBC 20-50 H Urine WBC >50 H Ur Epithelial Cells Negative Urine Crystals Negative Urine Bacteria Many Urine Casts Negative Urine Mucus Trace Urine Other Few Transitional Ur Culture Indicated? Yes Urine Glucose Negative COVID-19 Source SARS-CoV-2 (PCR) Influenza Type A (PCR) Influenza Type B (PCR) RSV (PCR) 03/03/23 03/03/23 03/03/23 11:00 11:00 11:00 WBC 7.96 RBC 3.26 L Hgb 10.7 L Hct 32.5 L MCV 100 H MCH 32.8 MCHC 32.9 RDW 14.3 Plt Count 161 MPV 9.6 Immature Gran % 0.6 Neutrophils % 51.2 Lymphocytes % 42.6 Monocytes % 4.5 Eosinophils % 0.5 Basophils % 0.6 Nucleated RBC % 0.0 Absolute Neutrophils 4.07 Absolute Lymphocytes 3.39 Absolute Monocytes 0.36 Absolute Eosinophils 0.04 Absolute Basophils 0.05 PT 11.1 H INR 1.1 APTT 25.1 VBG pH 7.41 VBG pCO2 43 VBG pO2 58 VBG HCO3 27 VBG Total CO2 25 VBG O2 Saturation 92 VBG Base Excess 3 VBG Lactate Sodium Potassium Chloride Carbon Dioxide Anion Gap BUN Creatinine Est GFR (CKD-EPI 2020) Glucose Calcium Magnesium Total Bilirubin AST ALT Alkaline Phosphatase Troponin I Total Protein Albumin Procalcitonin TSH Urine Color Urine Clarity Urine pH Ur Specific [place] Urine Protein Urine Ketones Urine Blood Urine Nitrite Urine Bilirubin Urine Urobilinogen Ur Leukocyte Esterase Urine RBC Urine WBC Ur Epithelial Cells Urine Crystals Urine Bacteria Urine Casts Urine Mucus Urine Other Ur Culture Indicated? Urine Glucose COVID-19 Source SARS-CoV-2 (PCR) Influenza Type A (PCR) Influenza Type B (PCR) RSV (PCR) 03/03/23 11:09 WBC RBC Hgb Hct MCV MCH MCHC RDW Plt Count MPV Immature Gran % Neutrophils % Lymphocytes % Monocytes % Eosinophils % Basophils % Nucleated RBC % Absolute Neutrophils Absolute Lymphocytes Absolute Monocytes Absolute Eosinophils Absolute Basophils PT INR APTT VBG pH VBG pCO2 VBG pO2 VBG HCO3 VBG Total CO2 VBG O2 Saturation VBG Base Excess VBG Lactate Sodium Potassium Chloride Carbon Dioxide Anion Gap BUN Creatinine Est GFR (CKD-EPI 2020) Glucose Calcium Magnesium Total Bilirubin AST ALT Alkaline Phosphatase Troponin I Total Protein Albumin Procalcitonin TSH Urine Color Urine Clarity Urine pH Ur Specific [place] Urine Protein Urine Ketones Urine Blood Urine Nitrite Urine Bilirubin Urine Urobilinogen Ur Leukocyte Esterase Urine RBC Urine WBC Ur Epithelial Cells Urine Crystals Urine Bacteria Urine Casts Urine Mucus Urine Other Ur Culture Indicated? Urine Glucose COVID-19 Source Nasopharynx SARS-CoV-2 (PCR) Negative Influenza Type A (PCR) Negative Influenza Type B (PCR) Negative RSV (PCR) Negative Last Vital Signs Temp 36.5 C 03/03/23 10:09 Pulse 89 03/03/23 10:46 Resp 26 H 03/03/23 13:30 BP 141/66 H 03/03/23 10:46 Pulse Ox 95 03/03/23 13:30 Time Spent Time spent with Patient: 55-74 minutes Time was spent: preparing to see the patient(eg.review tests), obtaining and/or reviewing separately otained hiistory, ordering medications,tests, procedures, referring, communicating with other health child care team lead, indepentently interpreting results, counseling the patient and care coordination
[2023-03-03] MEDS: CEFEPIME 2 GM in Normal Saline 100 ML IVPB (15:10)
[2023-03-03] MEDS: Enoxaparin 40 MG/0.4 ML SYR SC (16:06)
[2023-03-03] MEDS: MAGNESIUM SULFATE 2 GM/50 ML BAG IVPB (16:06)
[2023-03-03 18:43] LABS: Troponin I < 50 ng/L (<or=60)
[2023-03-03] MEDS: metFORMIN 500 MG TAB 1000 MG PO (20:09)
[2023-03-03] MEDS: Salt Supplement (BUFFERED) TAB 2 TAB PO (20:09)
[2023-03-03] MEDS: Calcium 600mg/Vit D 200U TAB 1 TAB PO (20:10)
[2023-03-03] MEDS: Magnesium Oxide 400 MG TAB PO (20:10)
[2023-03-03] MEDS: Docusate Sodium 100 MG/10 ML CUP PO (20:11)
[2023-03-03] MEDS: Acetaminophen 325 MG TAB PO (20:11)
[2023-03-03] MEDS: Baclofen 10 MG TAB 20 MG PO (20:11)
[2023-03-03] MEDS: Nystatin POWDER 15 GM JAR TP (20:11)
[2023-03-03] MEDS: Lactated Ringers 250 ML IV (20:13)
[2023-03-03] MEDS: Diclofenac 1% Gel 100 GM TUBE TP (22:29)
[2023-03-03] MEDS: Gabapentin 600 MG TAB PO (22:30)
[2023-03-03] MEDS: Atorvastatin 10 MG TAB PO (22:31)
[2023-03-03] MEDS: Senna TAB 1 TAB PO (22:31)
[2023-03-03] MEDS: Nystatin 500000 UNITS/5 ML SUSP 5ML CUP PO (22:31)
[2023-03-03] MEDS: Mirtazapine 15 MG TAB PO (22:31)
[2023-03-04] MEDS: CEFEPIME 2 GM in Normal Saline 100 ML IVPB ×2 (02:01→14:08)
[2023-03-04 03:03] VITALS: BP 142/71; PULSE 61; RESP 18; TEMP 36.1; O2SAT 93
[2023-03-04] MEDS: Levothyroxine 75 MCG TAB PO (06:44)
[2023-03-04] MEDS: Omeprazole 20 MG CAPCR PO (06:45)
[2023-03-04 06:56] LABS: Abs Immature Grans 0.03 10^3/uL (0.0-0.06); Absolute Basophil Count 0.04 10^3/uL (0.0-0.2); Absolute Eosinophil Count 0.12 10^3/uL (0.0-0.7); Absolute Lymphocyte Count 1.99 10^3/uL (1.2-3.4); Absolute Monocyte Count 0.25 10^3/uL (0.1-0.8); Absolute Neutrophil Count 2.57 10^3/uL (1.2-6.7); Basophils % 0.8; Eosinophils % 2.4; HCT 29.2 % (36.0-46.0); HGB 9.7 g/dL (11.2-15.7); Immature Grans % 0.6; Lymphocytes % 39.8; MCH 33.1 pg (27.0-33.0); MCHC 33.2 % (32.0-36.0); MCV 100 fL (80-95); MPV 9.9 fL (8.0-11.0); Neutrophils % 51.4; Platelet Count 125 10^3/uL (130-400); RBC 2.93 10^6/uL (3.93-5.22); RDW 14.3 % (11.7-14.6); RDW-SD 51.8 fL
[2023-03-04 07:13] VITALS: BP 161/76; PULSE 65; TEMP 34.4; O2SAT 96
[2023-03-04 07:22] LABS: Anion Gap 5.3 mmol/L (3-11); BUN 11 mg/dL (7-18); CO2 27.7 mmol/L (21.0-32.0); CREATININE 0.5 mg/dL (0.55-1.02); Calcium 8.3 mg/dL (8.5-10.1); Chloride 108 mmol/L (98-107); Estimated GFR 93.59 (mL/min/1.73m2); Glucose 116 mg/dL (74-106); Magnesium 1.8 mg/dL (1.8-2.4); Sodium 141 mmol/L (136-145)
[2023-03-04] MEDS: Calcium 600mg/Vit D 200U TAB 1 TAB PO ×2 (08:27→19:52)
[2023-03-04] MEDS: Baclofen 10 MG TAB 20 MG PO ×3 (08:27→19:52)
[2023-03-04] MEDS: Aspirin E.C. 81 MG TABEC PO (08:27)
[2023-03-04] MEDS: Gabapentin 400 MG CAP PO ×2 (08:28→12:56)
[2023-03-04] MEDS: Cyanocobalamin 500 MCG TAB 1000 MCG PO (08:28)
[2023-03-04] MEDS: metFORMIN 500 MG TAB 1000 MG PO ×2 (08:29→19:53)
[2023-03-04] MEDS: Magnesium Oxide 400 MG TAB PO ×2 (08:29→19:52)
[2023-03-04] MEDS: Salt Supplement (BUFFERED) TAB 2 TAB PO ×3 (08:30→19:51)
[2023-03-04] MEDS: Nystatin POWDER 15 GM JAR TP ×3 (08:30→20:00)
[2023-03-04] MEDS: Multivitamin TAB 1 TAB PO (08:30)
[2023-03-04] MEDS: Docusate Sodium 100 MG CAP PO (08:38)
[2023-03-04] MEDS: Mirabegron 50 MG TABCR PO (08:38)
--- NOTE | 2023-03-04 09:28 | W.NUTCONSULT ---
Date of service: 03/04/23 Time of Service: 09:28 Nutritional Consult ASSESSMENT: Ms. Almaraz is readmitted with UTI, weakness. She has multiple medical problems including hyponatremia, diabetes, and a pressure ulcer. She is 150 cm and 71.8 kg which gives her a BMI of 32 kg/m2 c/w class 1 obesity. Her adjusted ideal body weight is 67 kg. In November of this year, Ms. Almaraz was 83.4 kg. She has lost 14% of her body weight unintentionally in 3 months which is significant. She has increased nutritional needs with her pressure ulcers and weakness. Her PO intake is fair. Estimated energy needs are 1300 kcal/day (REE x 1.2) Estimated protein needs are 67 g-80 g/day (1.0-1.2g/kg/day) Estimated fluid needs: Per hospitalists as she is on a fluid restriction r/t hyponatremia. NUTRITIONAL DIAGNOSIS: Moderate malnutrition in the setting of acute illness as evidenced by 14% weight loss in three months, less than 75% intake of nutritional needs in greater than 5 days, weakness. INTERVENTION: Will visit with Ms. Almaraz prior to each meal to get the best idea of what she is willing to eat. Will offer protein shakes with or between meals. She has liked CIB in the past. MONITORING AND EVALUATION: 1. Will monitor weight, PO intake, and tolerance to diet and supplements. 2. Will evaluate nutritional care plan ongoing and adjust as needed. Time Spent in Nutritional Counseling and Treatment: 15 minutes
[2023-03-04 11:08] VITALS: BP 151/79; PULSE 70; TEMP 35.2; O2SAT 97
[2023-03-04] MEDS: Diclofenac 1% Gel 100 GM TUBE TP ×3 (12:55→20:00)
[2023-03-04] MEDS: Insulin Aspart 300 UNITS/3 ML PEN SC (12:55)
--- NOTE | 2023-03-04 13:08 | PHA.REVIEW2 ---
Pharmacy Admission Review - Admission Clinical Review (Last Reviewed 02/23/23 @ 16:09 by Zen Carbajal MD) Dysphagia (Acute) General weakness (Acute) Acute UTI (Acute) Discharge planning issues (Acute) DVT prophylaxis (Acute) Pleural thickening (Acute) Pressure ulcer (Acute) Acute UTI (Acute) ibuprofen Adverse Reaction (Mild, Unverified 02/05/23 13:14) Nausea Resuscitation Status Full Code Height 4 ft 11 in Weight 71.8 kg - Renal Dosing Renal Dosing: BUN 11 mg/dL (7-18) 03/04/23 06:10 Creatinine 0.5 mg/dL (0.55-1.02) L 03/04/23 06:10 Medications needing adjustments: Reviewed List of meds needing interventions: eCrCl 50 ml/min, cefepime has been renally adjusted to 2gm q12h from q8h - Anticoagulation Anticoagulation: Hgb 9.7 g/dL (11.2-15.7) L 03/04/23 06:10 Hct 29.2 % (36.0-46.0) L 03/04/23 06:10 Plt Count 125 10^3/uL (130-400) L 03/04/23 06:10 INR 1.1 (0.9-1.1) 03/03/23 11:00 Creatinine 0.5 mg/dL (0.55-1.02) L 03/04/23 06:10 DVT Prophylaxis: Reviewed Medications: Enoxaparin - Opiate Usage Evaluate Pain Scale/Pains Meds: N/A - Relevant Labs Sodium 141 mmol/L (136-145) 03/04/23 06:10 Potassium 4.0 mmol/L (3.5-5.1) 03/04/23 06:10 Chloride 108 mmol/L (98-107) H 03/04/23 06:10 Magnesium 1.8 mg/dL (1.8-2.4) 03/04/23 06:10 Electrolytes, C-Reactive P, ESR: Reviewed - DM Control DM Control: Glucose 116 mg/dL (74-106) H 03/04/23 06:10 Finger Stick Blood Glucose 159 Finger Stick Blood Glucose 159 Finger Stick Blood Glucose 122 Finger Stick Blood Glucose 122 DM Control: Reviewed Insulin Dosing, Diabetic Medication: aspart per sliding scale (NIDDM - metformin only at home) - Cardiac Review Cardiac Review: Troponin I < 50 ng/L (<or=60) 03/03/23 18:12 BP, HR, EF%: Reviewed - Qtc Review QTc: Reviewed If Elevated, List meds needing intervention: QTc 423 on admission - IV to PO Switch IV Medications: Reviewed - Home Meds Home Med List reviewed: Reviewed Relevent Home Meds Not ordered & why?: not ordered: lisinopril, all other pertinent meds ordered - Current meds Current Medication Order Review: Reviewed (empiric coverage for UTI with cefepime, culture results from this morning were positive for pseudomonas)
[2023-03-04] MEDS: Normal Saline Flush 10 ML SYR IVP (14:08)
--- NOTE | 2023-03-04 14:19 | INITIAL_ITS ---
Date of service: 03/04/23 Time of Service: 14:19 Care Management Initial Assmt Initial Assessment REASON FOR HOSPITALIZATION:: UTI PREVIOUS FUNCTIONAL STATUS/SOCIAL/FAMILY SUPPORTS:: Gerardo lives in a single family home in [place] with her Marcos. Their six children live nearby and are supportive of the couple. 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 She has CFC, highest needs and qualifies for 55 hours/week of caregiver support. Per daughter Abeba, she is currently receiving caregiver support 1-2hrs/6days per week. Her children have been taking turns staying with her and Marcos at night. CURRENT FUNCTIONAL STATUS:: Heavenyl was lying in bed, accompanied by her daughter Abeba when CM met with her. Heavenly has had 6 hospital admissions since 12/03/22 and shares that she would rather be home. Heavenly verbalizes to this fiction and nonfiction writer prose again today that she will not go to a nursing facility on discharge. She is open to discussing her goals of care and Hospice Services with a Palliative provider. ADVANCE DIRECTIVES:: On file, [facility] is [facility], alt agent is navin Verma Has patient been provided with info about the portal/API?: Yes Did the patient sign up for the portal?: No CODE STATUS:: Full Code INSURANCE COVERAGE / FINANCIAL ISSUES:: [place] National Medicare Supplement, [place], [place], [place] CURRENT HOME/COMMUNITY SERVICES/EQUIPMENT:: Kvng lift, hospital bed, wheelchair, ramps, and shower chair. Family provides some of her care. Gerardo also has caregivers through [facility] and Home Health nursing and LNAs. support. PRIMARY CARE PHYSICIAN:: Nida Farooq POTENTIAL DISCHARGE NEEDS:: Follow up appointment with PCP, resumption of HH services and coordination of EMS transport home. PATIENT/FAMILY EDUCATION NEEDS:: Review of discharge instructions, activity. restrictions (fluid intake), follow up plan and and discuss Ask Me Three. TRANSPORTATION:: [facility]/EMS coordinated by CM. PLAN:: Urology consult and Palliative consults are pending. Anticipate, Gerardo will be discharged home with a resumption of Home Health and caregiver services when medically cleared by provider. She will follow up with her PCP and plan of care as instructed following discharge. She will be transported home by ambulance coordinated by CM when ready. CM will continue to support patient and discharge planning needs. [facility] All Active Problems (Updated 03/05/23 @ 15:21 by Nikos Briggs MD) Bacteriuria (Acute) Palliative care encounter (Acute) Protein calorie malnutrition (Acute) Unintentional weight loss of 10% body weight within 6 months (Acute) Advance care planning (Acute) Deficit in activities of daily living (ADL) (Acute) Bedbound (Acute) Encounter for hospice care (Acute) Dysphagia (Acute) General weakness (Acute) Acute UTI (Acute) Discharge planning issues (Acute) DVT prophylaxis (Acute) Former cigarette smoker (Acute) Depression (Chronic) Yeast cystitis (Acute) Pleural thickening (Acute) Pleural effusion (Acute) Pressure ulcer (Acute) Quadriplegia (Acute) Constipation (Acute) Shortness of breath (Acute) Pneumonia (Acute) Acute UTI (Acute) Spinal stenosis, lumbar (Acute) Primary malignant neoplasm of breast (Acute) Neurogenic claudication (Acute) Hypothyroidism (Chronic) Hypertension (Chronic) Constipation due to neurogenic bowel (Acute) Benign neoplasm of colon (Acute) Autonomic dysreflexia (Acute) Arm edema (Acute) Nail dystrophy (Acute) UTI (urinary tract infection) (Acute) Transaminitis (Acute) Bladder spasm (Acute) COVID-19 ruled out (Acute) Neuropathic pain of finger of right hand (Acute) Fungal dermatitis (Acute) Chronic suprapubic catheter (Chronic) Hypomagnesemia (Acute) Acute UTI (Acute) Infiltrate of lung present on imaging of chest (Acute) UTI (urinary tract infection) (Acute) Hyperlipemia (Chronic) Intracranial aneurysm (Chronic) AAA (abdominal aortic aneurysm) (Chronic) Suprapubic catheter (Chronic) Diabetes mellitus (Chronic) Neurogenic bladder (Chronic) Paraplegia (Chronic) Medical History Cervical disc disorder CTS (carpal tunnel syndrome) left wrist ESBL (extended spectrum beta-lactamase) producing bacteria infection History of breast cancer Interstitial lung disease Surgical History H/O breast surgery H/O cervical spine surgery S/P cholecystectomy S/P excisional debridement (~02/2023) S/P rotator cuff repair S/P trigger finger release S/P tubal ligation Social History Smoking/Tobacco Use Status: Former Tobacco Use Quit Date: 08/17/06 Pack-years: 40 Smoking risk assessment performed?: Yes Alcohol Intake: never Drug use: Never Substance use type: does not use Housing: house Current gender identity: female Do you feel safe at home: Yes Do you feel safe in your relationship?: Yes Additional Social history: lives with her in [place], [place]. Has home health.
--- NOTE | 2023-03-04 14:24 | W.SPSTE ---
Date of service: 03/04/23 Time of Service: 14:24 Subjective Clinical (Bedside) Swallow Evaluation Speech Language Pathology Patient referred for Clinical Swallow Evaluation from Dr. Curtis given recent family report of decreased PO tolerance. Precautions: Pressure Ulcers, Standard, Full Code SUBJECTIVE: Patient received alert/awake, agreeable to evaluation, able to communicate wants/needs effectively; able to demonstrate comprehension of recommendations for safe p.o. intake upon discharge once deemed medically stable.? Gerardo (Heavenly) reports inability to initiate a cough, though she states she has not felt the need to cough recently. She reports good oral care routine. She denies s/sx aspiration, sensation of pharyngeal residue, or reflux symptoms. This report is consistent with previous hospitalization. Her sisters were also present during evaluation this date but were not able to provide much insight into recent swallow function. ? HPI: Pt is a 82 year old female quadripalegic secondary to traumatic cervical spine injury, bedbound, admitted with UTI. She also has pressure ulcers.?She also has history of breast cancer, ILD, PNA, frequent UTI's, HTN, history of smoking, and DM2. Recently admitted multiple times for pulmonary workup (ILD vs PNA) as well as hyponatremia and fungal UTI. Predisposing dysphagia risk factors: Cervical spinal cord injury at the cervical level, Clinical signs of possible chronic dysphagia: poor po intake/weight loss Precipitating dysphagia risk factors / triggering event: UTI/generalized weakness ? IMPRESSIONS & PLAN: Cranial nerve exam and PO trials remain minimally concerning for oral-pharyngeal dysphagia at this time. Suspect family's report of some acute difficulty with swallowign in recent days likely secondary to generalized weakness and changes in mental status r/t UTI. She does remain at elevated risk of pulmonary complications simply due to reduced diaphragm recruitment, inadequate cough strength for secretion management, aging, and bedbound status. Given she has been unable to independently clear secretions on her own for some time, she would benefit from a home suction device given her level/extent of injury. There is a chance she could improve her cough strength with expiratory muscle strength training, patient's family would need to order devices (sherwin breather likely to start, then [id number]) and work with home health WORKFORCE MANAGER. Given her inability to produce adequate cough, cont. to recommend soft/bite size diet in order to prevent airway obstruction, especially in light of some recently reported difficulty swallowing. She and family should also focus on increasing frequency and diligence with oral care as outlined below. Further WORKFORCE MANAGER services: HOME HEALTH for cough strengthening (Sherwin Breather vs eMST 75) ? PROVIDER RECOMMENDATIONS WORKFORCE MANAGER Home Health Diet Texture Modification(s): IDDSI Level(s) SOLIDS 6-Soft & Bite-Sized Solids LIQUIDS 0-Thin Liquids Medication Intake: Whole with 0-Thin Liquids or 4-Extremely Thick Liquids as tolerated. Recommend to crush large pills if able. RISK MANAGEMENT: HOB upright as tolerated; upright for all PO intake. Oral hygiene BID/2x per day & before/after PO intake, using friction with toothbrush on all oral structures as tolerated, suction PRN Level of Assistance/Supervision: Total Feed assist PO intake only when awake/alert? Strategies/Adaptations/Assistive Equipment: Small sips and bites when eating Slow rate of intake Posture/Positioning Needs: Maintain upright position at least 30 minutes after meals Avoid meals/snacks 2-3 hours prior to reclining/sleeping Sleep with head of bed elevated to reduce likelihood of nocturnal reflux PFSH All Active Problems?(Updated 03/04/23 @ 18:05 by Lillie Reyes NP) Palliative care encounter (Acute) Protein calorie malnutrition (Acute) Unintentional weight loss of 10% body weight within 6 months (Acute) Advance care planning (Acute) Deficit in activities of daily living (ADL) (Acute) Bedbound (Acute) Encounter for hospice care (Acute) Dysphagia (Acute) General weakness (Acute) Acute UTI (Acute) Discharge planning issues (Acute) DVT prophylaxis (Acute) Former cigarette smoker (Acute) Depression (Chronic) Yeast cystitis (Acute) Pleural thickening (Acute) Pleural effusion (Acute) Pressure ulcer (Acute) Quadriplegia (Acute) Constipation (Acute) Shortness of breath (Acute) Pneumonia (Acute) Acute UTI (Acute) Spinal stenosis, lumbar (Acute) Primary malignant neoplasm of breast (Acute) Neurogenic claudication (Acute) Hypothyroidism (Chronic) Hypertension (Chronic) Constipation due to neurogenic bowel (Acute) Benign neoplasm of colon (Acute) Autonomic dysreflexia (Acute) Arm edema (Acute) Nail dystrophy (Acute) UTI (urinary tract infection) (Acute) Transaminitis (Acute) Bladder spasm (Acute) COVID-19 ruled out (Acute) Neuropathic pain of finger of right hand (Acute) Fungal dermatitis (Acute) Chronic suprapubic catheter (Chronic) Hypomagnesemia (Acute) Acute UTI (Acute) Infiltrate of lung present on imaging of chest (Acute) UTI (urinary tract infection) (Acute) Hyperlipemia (Chronic) Intracranial aneurysm (Chronic) AAA (abdominal aortic aneurysm) (Chronic) Suprapubic catheter (Chronic) Diabetes mellitus (Chronic) Neurogenic bladder (Chronic) Paraplegia (Chronic) Medical History? Cervical disc disorder CTS (carpal tunnel syndrome) left wristESBL (extended spectrum beta-lactamase) producing bacteria infection History of breast cancer Interstitial lung disease Surgical History? H/O breast surgery H/O cervical spine surgery S/P cholecystectomy S/P excisional debridement (~02/2023) S/P rotator cuff repair S/P trigger finger release S/P tubal ligation ? OBJECTIVE: Respiratory: room air, reports and appears to tolerate well, some accessory recruitment with deep breaths Language:?Grossly WFL Mental Status: Alert and Oriented Recall of current events intact Speech:?WFL Oral Motor Exam: ? Dentition ? Natural dentition ? Good condition ? Oral Mucosa ? Good oral care ? CN V - Trigeminal ? Jaw Movement ? WFL ? CN VII ? Labial/Facial ? WFL ? CN IX ? Palate ? WFL ? CN X ? Laryngeal ? Vocal quality ? Clear dry ? Mildly quiet ? Volitional cough ? Extremely Weak ? CN XII ? Lingual ? WFL, possible slight weakness to R lateralization but good ROM and protrusion ? Volitional Swallow ? Robust and prompt laryngeal elevation ? Food items tested: ?? ? IDDSI 0: ? IDDSI 4: ? IDDSI 7: Oral phase: ? WFL Pharyngeal phase: ? WFL Provided education to:?Patient,Nursing, MD Topics Addressed:?anatomy/physiology of swallowing mechanism, overt s/sx to monitor for re: potential aspiration of food / liquids, recommendations for improved oral care, relationship between respiratory function changes and deglutition, Rationale for recommendations as outlined Outcome: Verbalized/demonstrated understanding TIME SPENT: 35 minutes Coding Diagnoses CPT Codes EVALUATE SWALLOWING FUNCTION - [id number] ([id number])
--- NOTE | 2023-03-04 15:03 | PT.INIE ---
Date of service: 03/04/23 Time of Service: 14:25 PT Notes Visit Reasons: UTI Associated with an Indwelling Catheter/ Physical Therapy Inpatient Initial Evaluation Date: 03/04/2023 Referring Doctor: Lauren Curtis MD PT Orders: PT CONSULT: Limited ability Precautions: High risk for skin breakdown. Quadriplegic. Patient Profile/Admitting Diagnosis: Gerardo is an 82-year-old female with past medical history significant for quadriplegia who presented to the ED on 03/03/2023 due to fatigue, poor oral intake, lethargy, and generalized weakness. [facility] management of acute urinary tract infection, neurogenic bladder, pleural thickening, diabetes mellitus, dysphagia and decubitus ulcer. PMHX: All Active Problems? Dysphagia (Acute) General weakness (Acute) Acute UTI (Acute) Discharge planning issues (Acute) DVT prophylaxis (Acute) Former cigarette smoker (Acute) Depression (Chronic) Yeast cystitis (Acute) Pleural thickening (Acute) Pleural effusion (Acute) Pressure ulcer (Acute) Quadriplegia (Acute) Constipation (Acute) Shortness of breath (Acute) Pneumonia (Acute) Acute UTI (Acute) Spinal stenosis, lumbar (Acute) Primary malignant neoplasm of breast (Acute) Neurogenic claudication (Acute) Hypothyroidism (Chronic) Hypertension (Chronic) Constipation due to neurogenic bowel (Acute) Benign neoplasm of colon (Acute) Autonomic dysreflexia (Acute) Arm edema (Acute) Nail dystrophy (Acute) UTI (urinary tract infection) (Acute) Transaminitis (Acute) Bladder spasm (Acute) COVID-19 ruled out (Acute) Neuropathic pain of finger of right hand (Acute) Fungal dermatitis (Acute) Chronic suprapubic catheter (Chronic) Hypomagnesemia (Acute) Acute UTI (Acute) Infiltrate of lung present on imaging of chest (Acute) UTI (urinary tract infection) (Acute) Hyperlipemia (Chronic) Intracranial aneurysm (Chronic) AAA (abdominal aortic aneurysm) (Chronic) Suprapubic catheter (Chronic) Diabetes mellitus (Chronic) Neurogenic bladder (Chronic) Paraplegia (Chronic) Medical History? Cervical disc disorder CTS (carpal tunnel syndrome) left wristESBL (extended spectrum beta-lactamase) producing bacteria infection History of breast cancer Interstitial lung disease Surgical History? H/O breast surgery H/O cervical spine surgery S/P cholecystectomy S/P excisional debridement (~02/2023) S/P rotator cuff repair S/P trigger finger release S/P tubal ligation Social History/Home Situation: [place]. Bed-bound for over a year now. Transfers from bed to wheelchair uisng a harness via a lift system attached to the ceiling at home with assist of 1-2 people. Has a motorized wheelchair at home. Last seen by PT a year ago. Total assist with ADLs. [facility] comes in everyday from 7:30 through 9;30 AM. works from noon through 3 PM everyday. Family members take turns watching over patient. Equipment Owned/DME: Hospital bed. Motorized wheelchair. Mechanical lift. Subjective: Per , him and his family do not feel that they are able to provide the care the patient needs at home. Patient verbalized to this proivder that she gets the level of care she needs the care she needs at home. She adds that she does not want to go anywhere else. Objective: General Observation: Supine in bed with air mattress. IV through R UE. Suprapubic catheter in place. Mental Status: Alert and oriented as to person, place, time, and purpose. Able to pay attention, focus, and respond appropriately. Pain: Denies Vital Signs: [place] monitored by nursing staff ROM: Right Upper Extremity: Shoulder Flexion none. Shoulder abduction none. Elbow flexion 60 degrees about 80 degrees. Wrist flexion none. Functional opening and closing of hand absent. Left Upper Extremity: Shoulder Flexion none. Shoulder abduction none. Elbow flexion 60 degrees about 80 degrees. Wrist flexion none. Functional opening and closing of hand absent. Right Lower Extremity: Hip flexion none. Hip abduction none. Knee flexion none. Ankle dorsiflexion less than 10 degrees. Ankle plantarflexion less than 10 degrees. Left Lower Extremity: Hip flexion none. Hip abduction none. Knee flexion none. Ankle dorsiflexion less than 10 degrees. Ankle plantarflexion less than 10 degrees. Strength: Right Upper Extremity: Shoulder flexors 1/5. Shoulder abductors 1/5. Elbow flexors 2-/5. Elbow extensors 1/5. Wholesale Account Executive absent. Left Upper Extremity: Shoulder flexors 1/5. Shoulder abductors 1/5. Elbow flexors 2-/5. Elbow extensors 1/5. Wholesale Account Executive absent. Right Lower Extremity: Hip flexors 0/5. Hip abductors 0/5. Knee flexors 1/5. Knee extensors 0/5. Ankle dorsiflexors 2-/5. Ankle plantarflexors 2-/5. Left Lower Extremity: Hip flexors 0/5. Hip abductors 0/5. Knee flexors 1/5. Knee extensors 0/5. Ankle dorsiflexors 2-/5. Ankle plantarflexors 2-/5. Bed Mobility/Transfers: Rolling total dependence Supine to sit total dependence Sit to supine total dependence Bed to bedside commode total dependence using mechanical lift Bedside commode to bed total dependence using mechanical lift Bed to reclining chair total dependence using mechanical lift Reclining chair to bed total dependence using mechanical lift Gait: N/A. Bed-bound. Balance: Static Sitting: Poor Dynamic Sitting: Unable Static Standing: Unable Dynamic Standing: Unable Special Tests: Mobility Limitations Standardized Measure [facility] 6 clicks Basic Mobility Inpatient Short Form: Raw Score: 6 CMS Score: 100% deficit Informed Consent/Education: Patient was instructed in purpose of PT consult. Patient and have been informed about the need for bed/seating re-assessment to minimize risk for skin breakdown through PT. Assessment: Patient admitted for management of worsening skin tissue injury. Patient will require bed/seating system [facility] and [facility] to ensure that adequate cushioning and positioning system are addressed at home to minimize further skin breakdown and or skin infection. Patient presents with clinical signs and symptoms consistent with current/admitting diagnoses that have resulted to mobility limitations, gait instability, generalized weakness, and overall ADL decline as demonstrated by the following impairment level findings: 1. Quadriplegia 2. Increased skin fragility Impairments are contributing to the following functional limitations: 1. Total dependence in all aspects of ADLs Patient is assessed as a [id number] high complexity based on the following: History: 82-year-old female with past medical history as indicated above Examination: Demonstrable impairment in strength, balance, and mobility level with underlying impairments and functional limitations as exhibited above as well as deficit score of 100% utilizing the [facility] Mobility Inpatient Short Form Presentation: Evolving Decision Makin high complexity Goals: N/A. PT evalaution only. PLAN OF CARE/TREATMENT PLAN: No services needed from PT while on admission. Please see below for D/C recommendations. Continue with scheduled patient repositioning per hospital protocol to minimize further skin breakdown and allow healing of existing pressure sores. DISCHARGE RECOMMENDATIONS: [] Home with no services [] [X] Home with services. Patient will benefit from bed/seating system reassessment through HH PT to address any ongoing needs, minimize further skin breakdown, minimize contracture formation, and optimize postural alignment. [] Home with outpatient PT [] [] SNF for continued rehabilitation [] [] [facility] [] [] SNF versus LTC based on ability to participate and progress [] [X] Home with 09/03 care + HH PT vs. SNF vs. LTC to allow provision of needed care TREATMENT CODE/TIME: 52499 x 23 minutes beginning at 9:39 AM and 14:25 PM. Thank you for the opportunity to participate in the care of this patient. Bushra Junior PT, DPT, CLT [facility] [place], [place]
[2023-03-04 15:08] VITALS: BP 155/82; PULSE 73; TEMP 35.8; O2SAT 95
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
[2023-03-04] MEDS: Enoxaparin 40 MG/0.4 ML SYR SC (17:27)
--- NOTE | 2023-03-04 17:41 | W.PM.PROGNOT ---
Date of Service Date of service: 03/04/23 Time of Service: 17:42 Assessment and Plan Assessment and plan (1) Acute UTI: Status: Acute Assessment and plan: Associated with an indwelling catheter, present on admission. Urine C&S with pseudomonas. Continue cefepime. Await blood cultures. Urology consulted due to recurrent UTIs. Suprapubic catheter exchanged on admission. (2) Neurogenic bladder: Status: Chronic Assessment and plan: As above (3) Suprapubic catheter: Status: Chronic Assessment and plan: As above (4) Diabetes mellitus: Status: Chronic Assessment and plan: Continue metformin, SSI. Carb consistent diet. Qualifiers: Diabetes mellitus type: type 2 Diabetes mellitus emt intermediate insulin use: without alf use Diabetes mellitus complication status: without complication Qualified Code(s): E11.9 - Type 2 diabetes mellitus without complications (5) Pleural thickening: Status: Acute Assessment and plan: The patient was supposed to have a PET CT ordered and follow up with Dr Ochoa. It looks like she was seen in Pulmonology clinic on 02/28. We will follow up on the status of that PET CT. (6) Dysphagia: Status: Acute Assessment and plan: Resolved. Seen by Speech therapy, who state that the patient is back to her baseline. Dysphagia could have been temporary due to generalized weakness. (7) Pressure ulcer: Status: Acute Assessment and plan: Present on admission. Wound care consulted. (8) DVT prophylaxis: Status: Acute Assessment and plan: Sc enoxaparin (9) Discharge planning issues: Status: Acute Assessment and plan: Full code PT consulted. Subjective Subjective Interval history since last seen: Gerardo feels better, and her thinks she is doing a lot better today. Denies dizziness, CP, SOB, nausea. No pain. Exam Narrative Exam Narrative: General: Elderly female who is A&Ox3, looks a lot better HEENT: EOMI, MMM Cardiovascular: RRR, + JANICE Lungs: CTAB Gastrointestinal: soft, nontender, nondistended Genitourinary: has a suprapubic catheter Extremities: no edema BLEs, B foot drop; B feet in heel protective socks, B hands with dry skin Objective Last Vital Signs Temp 35.8 C L 03/04/23 15:08 Pulse 73 03/04/23 15:08 Resp 18 03/04/23 03:03 BP 155/82 H 03/04/23 15:08 Pulse Ox 95 03/04/23 15:08 Laboratory Results - last 24 hr 03/03/23 03/04/23 03/04/23 18:12 06:10 06:10 WBC 5.00 RBC 2.93 L Hgb 9.7 L Hct 29.2 L MCV 100 H MCH 33.1 H MCHC 33.2 RDW 14.3 Plt Count 125 L MPV 9.9 Immature Gran % 0.6 Neutrophils % 51.4 Lymphocytes % 39.8 Monocytes % 5.0 Eosinophils % 2.4 Basophils % 0.8 Nucleated RBC % 0.0 Absolute Neutrophils 2.57 Absolute Lymphocytes 1.99 Absolute Monocytes 0.25 Absolute Eosinophils 0.12 Absolute Basophils 0.04 Sodium 141 Potassium 4.0 Chloride 108 H Carbon Dioxide 27.7 Anion Gap 5.3 BUN 11 Creatinine 0.5 L Est GFR (CKD-EPI 2020) 93.59 Glucose 116 H Calcium 8.3 L Magnesium 1.8 Troponin I < 50 Time Spent with Patient Time Spent with Patient: 25-34 minutes Time was spent: preparing to see the patient(eg.review tests), obtaining and/or reviewing separately otained hiistory, ordering medications,tests, procedures, referring, communicating with other health day care home provider, indepentently interpreting results, counseling the patient and care coordination
[2023-03-04 19:14] VITALS: BP 103/62; PULSE 73; RESP 20; TEMP 36.3; O2SAT 94
[2023-03-04] MEDS: Docusate Sodium 100 MG/10 ML CUP PO (19:53)
[2023-03-04] MEDS: Atorvastatin 10 MG TAB PO (21:58)
[2023-03-04] MEDS: Gabapentin 600 MG TAB PO (21:58)
[2023-03-04] MEDS: Senna TAB 1 TAB PO (21:58)
[2023-03-04] MEDS: Mirtazapine 15 MG TAB 7.5 MG PO (21:58)
[2023-03-04] MEDS: Nystatin 500000 UNITS/5 ML SUSP 5ML CUP PO (21:58)
[2023-03-04 23:08] VITALS: BP 131/65; PULSE 72; RESP 19; TEMP 36.1; O2SAT 95
[2023-03-05] MEDS: CEFEPIME 2 GM in Normal Saline 100 ML IVPB ×2 (01:56→14:37)
[2023-03-05] MEDS: Levothyroxine 75 MCG TAB PO (05:04)
[2023-03-05] MEDS: Nystatin 500000 UNITS/5 ML SUSP 5ML CUP PO ×5 (05:05→20:03)
[2023-03-05 06:59] VITALS: BP 159/81; PULSE 68; TEMP 36.4; O2SAT 95
[2023-03-05] MEDS: Aspirin E.C. 81 MG TABEC PO (07:55)
[2023-03-05] MEDS: Omeprazole 20 MG CAPCR PO (07:55)
[2023-03-05] MEDS: Gabapentin 400 MG CAP PO ×2 (07:55→11:54)
[2023-03-05] MEDS: Diclofenac 1% Gel 100 GM TUBE TP ×4 (07:56→20:05)
[2023-03-05] MEDS: Docusate Sodium 100 MG/10 ML CUP PO ×2 (07:56→20:03)
[2023-03-05] MEDS: Baclofen 10 MG TAB 20 MG PO ×3 (07:56→20:04)
[2023-03-05] MEDS: Cyanocobalamin 500 MCG TAB 1000 MCG PO (07:56)
[2023-03-05] MEDS: Calcium 600mg/Vit D 200U TAB 1 TAB PO ×2 (07:56→20:04)
[2023-03-05] MEDS: Magnesium Oxide 400 MG TAB PO ×2 (07:56→20:04)
[2023-03-05] MEDS: Multivitamin TAB 1 TAB PO (07:57)
[2023-03-05] MEDS: Mirabegron 25 MG TABCR PO (07:57)
[2023-03-05] MEDS: metFORMIN 500 MG TAB 1000 MG PO ×2 (07:57→20:03)
[2023-03-05] MEDS: Salt Supplement (BUFFERED) TAB 2 TAB PO ×3 (07:57→20:04)
[2023-03-05] MEDS: Nystatin POWDER 15 GM JAR TP ×3 (07:57→20:06)
[2023-03-05 11:13] VITALS: BP 137/81; PULSE 72; TEMP 35.2; O2SAT 97
--- NOTE | 2023-03-05 11:39 | PDOC.CMPRO ---
Date of service: 03/05/23 Time of Service: 11:39 Care Management Progress Note Progress Note Text Progress Note Text: S/O: Heavenly was sitting up in bed when CM met with her. She stated that she had thought the plan was for her to return home today, but that her had appointments in [facility] all day. CM contacted Marquez/Alex PATRICIA regarding a hospice consultation with her family. Elisha stated that she would call Luci, Heavenly's daughter, to answer any questions she may have, but would wait to meet with the family at home after she is discharged to discuss transitioning to hospice. CM will continue to follow. A: Gerardo is an 82 year old female admitted to [facility] for UTI. P: Anticipate Gerardo will be discharged home with a resumption of Home Health and caregiver services when medically cleared by provider.? She will follow up with her PCP and plan of care as instructed following discharge.? She will be transported home by ambulance coordinated by CM when ready.? CM will continue to support patient and discharge planning needs.
[2023-03-05 15:05] VITALS: BP 158/82; PULSE 76; TEMP 35.4; O2SAT 97
--- NOTE | 2023-03-05 15:12 | UCONE_ITS ---
Date of service: 03/06/23 Time of Service: 07:00 Assessment and Plan Assessment and plan (1) Bacteriuria: Status: Acute Assessment and plan: Unfortunately, I do not see a correctable cause for her recurrent positive urine cultures. If struvite stones were present, we might be able to help by removing her stones. We expect to find bacteriuria in all patients with a chronic indwelling catheter. We do not recommend routine testing of the urine unless the patient is symptomatic. Treating asymptomatic bacteriuria leads to resistant organisms. The urology and infectious disease recommendations are as follows 1. Only send a UA and urine culture in the setting of fevers, chills, sweats, mental status change different from her baseline or increased spasticity 2. Cloudy in foul-smelling urine are not signs of a UTI and are not indications for antibiotics 3. If the urine is obtained for culture, please send a culture off a newly placed suprapubic catheter and not from a catheter that has been in place for more than 7 to 14 days. This technique improves the yield of culturing bacteria from the bladder and reducing the colonizing bacteria in the tubing sample At the time of her the patient, her family and home health providers indicate that she was febrile, so her current treatment seems quite appropriate. The infectious disease specialist noted that if she truly does have frequent symptomatic UTIs, it would be reasonable to trial prophylactic fosfomycin 3 g p.o. weekly. This recommend day Glo was based on her urine cultures from 2020 but certainly could be tried. History of Present Illness History of Present Illness Chief Complaint: Neurogenic bladder Narrative: This is an 80-year-old woman who has a history of neurogenic bladder. As a res ult she has urinary retention which is managed with an indwelling suprapubic catheter. The catheter was placed by interventional radiology at one of the hospitals in the [facility]. The catheter is changed by home health services monthly. We first saw the patient in our office when she returned to our area. She has been treated for recurrent urinary tract infections over the years and it seemed like the indications used for treating the patient had to do with cloudiness or a change in odor of the urine. We had recommended not treating bacteriuria in this patient with a chronic indwelling catheter unless she was symptomatic with fevers or chills. The patients family, her PCP and home health providers felt more comfortable with an infectious disease specialty evaluation, he was seen by the [facility] infectious disease service in September 2020. The infectious disease providers noted that for the most part, Ms. Hayes appears to have asymptomatic bacteriuria in the setting of a chronic indwelling suprapubic pubic catheter She is currently hospitalized with a positive Pseudomonas urine culture. She was reportedly febrile prior to admission but has remained afebrile during the hospitalization. Her previous urine cultures done at our facility have grown Pseudomonas and Hiwot. She has had a CT of the abdomen and pelvis which showed no stones in the kidneys or bladder Review of Systems Narrative: No fevers or chills No dysphasia No thyroid dysfunction No cough or hemoptysis No chest pain or palpitations Chronic constipation. No nausea, vomiting, hepatitis, ulcers, jaundice Quadraplegia. No seizures, strokes No bleeding disorders No gout PFSH All Active Problems (Updated 03/05/23 @ 15:21 by Nikos Briggs MD) Bacteriuria (Acute) Palliative care encounter (Acute) Protein calorie malnutrition (Acute) Unintentional weight loss of 10% body weight within 6 months (Acute) Advance care planning (Acute) Deficit in activities of daily living (ADL) (Acute) Bedbound (Acute) Encounter for hospice care (Acute) Dysphagia (Acute) General weakness (Acute) Acute UTI (Acute) Discharge planning issues (Acute) DVT prophylaxis (Acute) Former cigarette smoker (Acute) Depression (Chronic) Yeast cystitis (Acute) Pleural thickening (Acute) Pleural effusion (Acute) Pressure ulcer (Acute) Quadriplegia (Acute) Constipation (Acute) Shortness of breath (Acute) Pneumonia (Acute) Acute UTI (Acute) Spinal stenosis, lumbar (Acute) Primary malignant neoplasm of breast (Acute) Neurogenic claudication (Acute) Hypothyroidism (Chronic) Hypertension (Chronic) Constipation due to neurogenic bowel (Acute) Benign neoplasm of colon (Acute) Autonomic dysreflexia (Acute) Arm edema (Acute) Nail dystrophy (Acute) UTI (urinary tract infection) (Acute) Transaminitis (Acute) Bladder spasm (Acute) COVID-19 ruled out (Acute) Neuropathic pain of finger of right hand (Acute) Fungal dermatitis (Acute) Chronic suprapubic catheter (Chronic) Hypomagnesemia (Acute) Acute UTI (Acute) Infiltrate of lung present on imaging of chest (Acute) UTI (urinary tract infection) (Acute) Hyperlipemia (Chronic) Intracranial aneurysm (Chronic) AAA (abdominal aortic aneurysm) (Chronic) Suprapubic catheter (Chronic) Diabetes mellitus (Chronic) Neurogenic bladder (Chronic) Paraplegia (Chronic) Medical History Cervical disc disorder CTS (carpal tunnel syndrome) left wrist ESBL (extended spectrum beta-lactamase) producing bacteria infection History of breast cancer Interstitial lung disease Surgical History H/O breast surgery H/O cervical spine surgery S/P cholecystectomy S/P excisional debridement (~02/2023) S/P rotator cuff repair S/P trigger finger release S/P tubal ligation Social History Smoking/Tobacco Use Status: Former Tobacco Use Quit Date: 08/17/06 Pack-years: 40 Smoking risk assessment performed?: Yes Alcohol Intake: never Drug use: Never Substance use type: does not use Housing: house Current gender identity: female Do you feel safe at home: Yes Do you feel safe in your relationship?: Yes Additional Social history: lives with her in [place], [place]. Has home health. Exam Narrative Exam Narrative: She is a pleasant woman seen in her room. She does not appear septic or toxic Her vital signs are documented elsewhere Her suprapubic tube is draining clear urine She is awake and alert Results Last Vital Signs Temp 35.4 C L 03/05/23 15:05 Pulse 76 03/05/23 15:05 Resp 19 03/04/23 23:08 BP 158/82 H 03/05/23 15:05 Pulse Ox 97 03/05/23 15:05 Labs 03/04/23 06:10 03/04/23 06:10
[2023-03-05] MEDS: Enoxaparin 40 MG/0.4 ML SYR SC (15:37)
--- NOTE | 2023-03-05 17:50 | CHAPLAIN ---
Gerardo was visiting with her when I stopped in this evening. [facility] [place] and was going home to rest. I believe Gerardo and I have met during a previous admission, but I explained my role and offer support.
--- NOTE | 2023-03-05 18:31 | W.PM.PROGNOT ---
Date of Service Date of service: 03/05/23 Time of Service: 18:32 Assessment and Plan Assessment and plan (1) Acute UTI: Status: Acute Assessment and plan: Associated with an indwelling catheter, present on admission. Urine C&S with pseudomonas. Continue cefepime. Blood cultures negative. Urology consulted due to recurrent UTIs. Suprapubic catheter exchanged on admission. (2) Neurogenic bladder: Status: Chronic Assessment and plan: As above (3) Suprapubic catheter: Status: Chronic Assessment and plan: As above (4) Diabetes mellitus: Status: Chronic Assessment and plan: Continue metformin, SSI. Carb consistent diet. Qualifiers: Diabetes mellitus complication status: without complication Diabetes mellitus [facility] insulin use: without extermination supervisor use Diabetes mellitus type: type 2 Qualified Code(s): E11.9 - Type 2 diabetes mellitus without complications (5) Pleural thickening: Status: Acute Assessment and plan: The patient was supposed to have a PET CT ordered and follow up with Dr Ochoa. It looks like she was seen in Pulmonology clinic on 02/28. We will follow up on the status of that PET CT. (6) Dysphagia: Status: Acute Assessment and plan: Resolved. Seen by Speech therapy, who state that the patient is back to her baseline. Dysphagia could have been temporary due to generalized weakness. (7) Pressure ulcer: Status: Acute Assessment and plan: Present on admission. Wound care consulted. (8) DVT prophylaxis: Status: Acute Assessment and plan: Sc enoxaparin (9) Discharge planning issues: Status: Acute Assessment and plan: Full code PT consulted. Subjective Subjective Interval history since last seen: Ingrid feels better. Denies dizziness, CP, SOB, n/v. Exam Narrative Exam Narrative: General: Elderly female who is A&Ox3, looks more energetic HEENT: EOMI, MMM Cardiovascular: RRR, + JANICE Lungs: CTAB Gastrointestinal: soft, nontender, nondistended Genitourinary: has a suprapubic catheter Extremities: no edema BLEs, B foot drop; B feet in heel protective socks, B hands with dry skin Objective Last Vital Signs Temp 35.4 C L 03/05/23 15:05 Pulse 76 03/05/23 15:05 Resp 19 03/04/23 23:08 BP 158/82 H 03/05/23 15:05 Pulse Ox 97 03/05/23 15:05 Time Spent with Patient Time Spent with Patient: 25-34 minutes Time was spent: preparing to see the patient(eg.review tests), obtaining and/or reviewing separately otained hiistory, ordering medications,tests, procedures, referring, communicating with other health field care manager, indepentently interpreting results, counseling the patient and care coordination
[2023-03-05 19:24] VITALS: BP 139/65; PULSE 71; RESP 18; TEMP 36.2; O2SAT 95
[2023-03-05] MEDS: Gabapentin 600 MG TAB PO (20:02)
[2023-03-05] MEDS: Senna TAB 1 TAB PO (20:02)
[2023-03-05] MEDS: Mirtazapine 15 MG TAB 7.5 MG PO (20:03)
[2023-03-05] MEDS: Atorvastatin 10 MG TAB PO (20:04)
[2023-03-05 23:00] VITALS: BP 112/68; PULSE 68; RESP 18; TEMP 36.5; O2SAT 93
[2023-03-06] MEDS: CEFEPIME 2 GM in Normal Saline 100 ML IVPB ×2 (01:33→13:12)
[2023-03-06 06:00] VITALS: BP 128/63; PULSE 71; RESP 18; TEMP 35.6; O2SAT 96
[2023-03-06] MEDS: Levothyroxine 75 MCG TAB PO (06:19)
[2023-03-06] MEDS: Gabapentin 400 MG CAP PO ×2 (07:40→12:31)
[2023-03-06] MEDS: Baclofen 10 MG TAB 20 MG PO ×3 (07:40→20:04)
[2023-03-06] MEDS: Aspirin E.C. 81 MG TABEC PO (07:40)
[2023-03-06] MEDS: Omeprazole 20 MG CAPCR PO (07:40)
[2023-03-06] MEDS: Mirabegron 25 MG TABCR PO (07:41)
[2023-03-06] MEDS: Magnesium Oxide 400 MG TAB PO ×2 (07:41→20:03)
[2023-03-06] MEDS: Docusate Sodium 100 MG/10 ML CUP PO ×2 (07:41→20:03)
[2023-03-06] MEDS: Calcium 600mg/Vit D 200U TAB 1 TAB PO ×2 (07:41→20:03)
[2023-03-06] MEDS: Cyanocobalamin 500 MCG TAB 1000 MCG PO (07:41)
[2023-03-06] MEDS: metFORMIN 500 MG TAB 1000 MG PO ×2 (07:41→20:04)
[2023-03-06] MEDS: Diclofenac 1% Gel 100 GM TUBE TP ×3 (07:41→20:05)
[2023-03-06] MEDS: Multivitamin TAB 1 TAB PO (07:41)
[2023-03-06] MEDS: Nystatin POWDER 15 GM JAR TP ×3 (07:42→20:07)
[2023-03-06] MEDS: Salt Supplement (BUFFERED) TAB 2 TAB PO ×3 (07:42→20:04)
[2023-03-06 08:21] LABS: Bilirubin Negative (Negative); Blood Small (Negative); Clarity Clear (Clear); Glucose Negative (Negative); Ketones Negative (Negative); Leukocyte Esterase Moderate (Negative); Nitrite Negative (Negative); Urobilinogen 0.2 mg/dL (Up to 0.2); pH 5.5 (5-8)
[2023-03-06 08:31] LABS: Bacteria Moderate HPF (Negative); C & S Indicated? Yes; Casts 0-2 Hyaline LPF (Negative); Crystals Negative HPF (Negative); Epithelial Cells Few HPF (Negative); Mucus Negative (Negative); WBC >50 HPF (0-5)
--- NOTE | 2023-03-06 12:42 | PDOC.CMPRO ---
Date of service: 03/06/23 Time of Service: 12:42 Care Management Progress Note Progress Note Text Progress Note Text: S/O: Gerardo is accompanied by her daughter's Luci and Abeba and when CM met with her. She is awake and engages in conversation. Heavenly is disappointed that she is unable to leave the hospital for a few hours tomorrow to attend a . Per Heavenly she really doesn't want to be here and will be discharging home when medically ready. Heavenly will have resumption of [facility] services and caregiver support. Heavenly had a Palliative consult and is interested in talking to the [facility] about Hospice services. CM spoke with Elisha from [facility] and sent her Palliative Notes. Elisha has already spoken with her daughter Luci, and will coordinate a Hospice consult with Heavenly and her family after discharge. CM will continue to follow. A: Gerardo is an 82 year old woman admitted on 02/14/23 with hyponatremia P:?Anticipate, Gerardo will be discharged home with a resumption of [facility]NA and C caregiver services, when medically cleared by provider. She will follow up with her PCP and plan of care as instructed following discharge.? She will be transported home by EMS coordinated by CM.?Gerardo is interested in Hospice services, [facility] will coordinate a Hospice consult with Heavenly and her family after discharge. CM will continue to support patient and discharge planning needs.
[2023-03-06 15:03] VITALS: BP 108/51; PULSE 77; RESP 18; TEMP 36.8; O2SAT 94
[2023-03-06] MEDS: Enoxaparin 40 MG/0.4 ML SYR SC (15:07)
--- NOTE | 2023-03-06 19:39 | PGE_ITS ---
Date of Service Date of service: 03/06/23 Time of Service: 19:40 Assessment and Plan Assessment and plan (1) Acute UTI: Status: Acute Assessment and plan: Associated with an indwelling catheter, present on admission. Urine C&S with pseudomonas. UA today still positive. Continue cefepime. Blood cultures negative. Urology consulted due to recurrent UTIs and recommend weekly fosfomycin. The is also trying to get silver-impregnated catheters. Suprapubic catheter exchanged on admission. (2) Neurogenic bladder: Status: Chronic Assessment and plan: As above (3) Suprapubic catheter: Status: Chronic Assessment and plan: As above (4) Diabetes mellitus: Status: Chronic Assessment and plan: Continue metformin, SSI. Carb consistent diet. Qualifiers: Diabetes mellitus type: type 2 Diabetes mellitus exterminator helper insulin use: without exterminator helper use Diabetes mellitus complication status: without complication Qualified Code(s): E11.9 - Type 2 diabetes mellitus without complications (5) Pleural thickening: Status: Acute Assessment and plan: The patient was supposed to have a PET CT ordered and follow up with Dr Ochoa. It looks like she was seen in Pulmonology clinic on 02/28. We will follow up on the status of that PET CT. (6) Dysphagia: Status: Acute Assessment and plan: Resolved. Seen by Speech therapy, who state that the patient is back to her baseline. Dysphagia could have been temporary due to generalized weakness. (7) Pressure ulcer: Status: Acute Assessment and plan: Present on admission. Wound care consulted. (8) DVT prophylaxis: Status: Acute Assessment and plan: Sc enoxaparin (9) Discharge planning issues: Status: Acute Assessment and plan: Full code PT consulted. Continues to require hospitalization. Subjective Subjective Interval history since last seen: Ingrid feels better today. She denies dizziness, CP, SOB, n/v. Exam Narrative Exam Narrative: General: Elderly female who is A&Ox3, looks better HEENT: EOMI, MMM Cardiovascular: RRR, + JANICE Lungs: CTAB Gastrointestinal: soft, nontender, nondistended Genitourinary: has a suprapubic catheter Extremities: no edema BLEs, B foot drop; B feet in heel protective socks, B hands with dry skin Objective Last Vital Signs Temp 36.8 C 03/06/23 15:03 Pulse 77 03/06/23 15:03 Resp 18 03/06/23 15:03 BP 108/51 L 03/06/23 15:03 Pulse Ox 94 03/06/23 15:03 Laboratory Results - last 24 hr 03/05/23 03/05/23 03/05/23 05:35 05:35 05:35 WBC Cancelled RBC Cancelled Hgb Cancelled Hct Cancelled MCV Cancelled MCH Cancelled MCHC Cancelled RDW Cancelled Plt Count Cancelled MPV Cancelled Immature Gran % Cancelled Neutrophils % Cancelled Band Neutrophils % Cancelled Lymphocytes % Cancelled Atypical Lymphs % Cancelled Monocytes % Cancelled Eosinophils % Cancelled Basophils % Cancelled Metamyelocytes % Cancelled Myelocytes % Cancelled Promyelocytes % Cancelled Other Cells % Cancelled Nucleated RBC % Cancelled Absolute Neutrophils Cancelled Absolute Lymphocytes Cancelled Absolute Monocytes Cancelled Absolute Eosinophils Cancelled Absolute Basophils Cancelled RBC Morphology Cancelled Polychromasia Cancelled Hypochromasia Cancelled Poikilocytosis Cancelled Basophilic Stippling Cancelled Anisocytosis Cancelled Microcytosis Cancelled Macrocytosis Cancelled Spherocytes Cancelled Tear Drop Cells Cancelled Ovalocytes Cancelled Stomatocytes Cancelled [place] Bodies Cancelled [place] Cells/Echinocytes Cancelled Acanthocytes (Spur) Cancelled Schistocytes Cancelled Sodium Cancelled Potassium Cancelled Chloride Cancelled Carbon Dioxide Cancelled Anion Gap Cancelled BUN Cancelled Creatinine Cancelled Est GFR (CKD-EPI 2020) Cancelled Glucose Cancelled Calcium Cancelled Magnesium Cancelled Iron Cancelled TIBC Cancelled Transferrin % Sat Cancelled Ferritin Cancelled Vitamin B12 Cancelled Folate Cancelled Urine Color Urine Clarity Urine pH Ur Specific [place] Urine Protein Urine Ketones Urine Blood Urine Nitrite Urine Bilirubin Urine Urobilinogen Ur Leukocyte Esterase Urine RBC Urine WBC Ur Epithelial Cells Urine Crystals Urine Bacteria Urine Casts Urine Mucus Ur Culture Indicated? Urine Glucose 03/06/23 08:00 WBC RBC Hgb Hct MCV MCH MCHC RDW Plt Count MPV Immature Gran % Neutrophils % Band Neutrophils % Lymphocytes % Atypical Lymphs % Monocytes % Eosinophils % Basophils % Metamyelocytes % Myelocytes % Promyelocytes % Other Cells % Nucleated RBC % Absolute Neutrophils Absolute Lymphocytes Absolute Monocytes Absolute Eosinophils Absolute Basophils RBC Morphology Polychromasia Hypochromasia Poikilocytosis Basophilic Stippling Anisocytosis Microcytosis Macrocytosis Spherocytes Tear Drop Cells Ovalocytes Stomatocytes [place] Bodies [place]ira Cells/Echinocytes Acanthocytes (Spur) Schistocytes Sodium Potassium Chloride Carbon Dioxide Anion Gap BUN Creatinine Est GFR (CKD-EPI 2020) Glucose Calcium Magnesium Iron TIBC Transferrin % Sat Ferritin Vitamin B12 Folate Urine Color Yellow Urine Clarity Clear Urine pH 5.5 Ur Specific [place] 1.010 Urine Protein 30 H Urine Ketones Negative Urine Blood Small H Urine Nitrite Negative Urine Bilirubin Negative Urine Urobilinogen 0.2 Ur Leukocyte Esterase Moderate H Urine RBC 5-10 H Urine WBC >50 H Ur Epithelial Cells Few Urine Crystals Negative Urine Bacteria Moderate Urine Casts 0-2 Hyaline Urine Mucus Negative Ur Culture Indicated? Yes Urine Glucose Negative Time Spent with Patient Time Spent with Patient: 25-34 minutes Time was spent: preparing to see the patient(eg.review tests), obtaining and/or reviewing separately otained hiistory, ordering medications,tests, procedures, referring, communicating with other health home child care provider, indepentently interpreting results, counseling the patient and care coordination
[2023-03-06] MEDS: Senna TAB 1 TAB PO (20:03)
[2023-03-06] MEDS: Mirtazapine 15 MG TAB 7.5 MG PO (20:03)
[2023-03-06] MEDS: Gabapentin 600 MG TAB PO (20:04)
[2023-03-06] MEDS: Atorvastatin 10 MG TAB PO (20:04)
[2023-03-06 22:36] VITALS: BP 145/72; PULSE 73; RESP 16; TEMP 36.6; O2SAT 96
[2023-03-07] MEDS: CEFEPIME 2 GM in Normal Saline 100 ML IVPB ×2 (03:00→14:58)
[2023-03-07] MEDS: Levothyroxine 75 MCG TAB PO (06:12)
[2023-03-07 07:29] VITALS: BP 139/82; PULSE 66; RESP 16; TEMP 36.6; O2SAT 95
[2023-03-07] MEDS: Nystatin POWDER 15 GM JAR TP ×3 (08:44→19:56)
[2023-03-07] MEDS: Diclofenac 1% Gel 100 GM TUBE TP (08:45)
[2023-03-07] MEDS: Omeprazole 20 MG CAPCR PO (08:45)
[2023-03-07] MEDS: Docusate Sodium 100 MG/10 ML CUP PO (08:45)
[2023-03-07] MEDS: Calcium 600mg/Vit D 200U TAB 1 TAB PO ×2 (08:46→19:13)
[2023-03-07] MEDS: Multivitamin TAB 1 TAB PO (08:46)
[2023-03-07] MEDS: Mirabegron 25 MG TABCR PO (08:46)
[2023-03-07] MEDS: Gabapentin 400 MG CAP PO ×2 (08:46→12:57)
[2023-03-07] MEDS: Aspirin E.C. 81 MG TABEC PO (08:46)
[2023-03-07] MEDS: Cyanocobalamin 500 MCG TAB 1000 MCG PO (08:46)
[2023-03-07] MEDS: Baclofen 10 MG TAB 20 MG PO ×3 (08:46→19:13)
[2023-03-07] MEDS: Magnesium Oxide 400 MG TAB PO ×2 (08:47→19:13)
[2023-03-07] MEDS: Salt Supplement (BUFFERED) TAB 2 TAB PO ×3 (08:47→19:12)
[2023-03-07] MEDS: metFORMIN 500 MG TAB 1000 MG PO ×2 (08:47→19:12)
--- NOTE | 2023-03-07 13:44 | W.PM.PROGNOT ---
Date of Service Date of service: 03/07/23 Time of Service: 13:44 Assessment and Plan Assessment and plan (1) Pressure injury of skin with infection: Status: Acute Assessment and plan: present on admission, general surgery consulted, please see their note. believed to be infected, suspected pseudomonas which is being covered by the cefepime continue wound care per instructed by surgery. high protein supplementation added. (2) Protein calorie malnutrition: Status: Acute Assessment and plan: add liquid protein BID in addition to the high protein shakes. nutrition following. (3) Acute UTI: Status: Acute Assessment and plan: present on admission. Urine C&S with pseudomonas. UA remains positive. Continue cefepime day 4. Blood cultures negative. Urology consulted due to recurrent UTIs and recommend weekly fosfomycin. The is also trying to get silver-impregnated catheters. Suprapubic catheter exchanged on admission. (4) Diabetes mellitus: Status: Chronic Assessment and plan: Continue metformin, SSI. Carb consistent diet. Qualifiers: Diabetes mellitus complication status: without complication Diabetes mellitus long term care phlebotomist insulin use: without long term care phlebotomist use Diabetes mellitus type: type 2 Qualified Code(s): E11.9 - Type 2 diabetes mellitus without complications (5) On deep vein thrombosis (DVT) prophylaxis: Status: Deleted (6) DVT prophylaxis: Status: Deleted Assessment and plan: enoxaparin daily (7) Discharge planning issues: Status: Acute Assessment and plan: care management and palliative care following. discussed with Dr Curtis Subjective Subjective Patient reports: no new complaints, tolerating liquids well, tolerating a regular diet and afebrile; denies shortness of breath Exam Const General: cooperative and no acute distress Orientation: alert, awake and oriented x3 [facility] Head: normal to inspection Ears: hearing grossly normal bilaterally Face and sinus: normal facial exam Mouth: oral mucosae normal Eyes General: appearance normal, both eyes and all related structures Neck Neck: normal visual inspection and supple Resp Effort & Inspection: normal respiratory effort and able to speak in complete sentences Cardio Rate: regular rate Rhythm: regular rhythm Skin Lesions: other (pressure area on coccyx covered with mepilex, no drainage or erythema) Rashes: no rashes Neuro General: patient alert, patient awake and patient oriented x3 Cognition: normal cognition Speech: abnormal speech stuttering (baseline) Extrem Other: Atrophic appearing bilateral lower extremities. Contracted upper extremities Psych Appearance: grossly normal Mental Status: mental status grossly normal Speech and Movement: speech and movement normal Mood: congruent mood Affect: normal affect Objective Last Vital Signs Temp 36.6 C 03/07/23 07:29 Pulse 66 03/07/23 07:29 Resp 16 03/07/23 07:29 BP 139/82 03/07/23 07:29 Pulse Ox 95 03/07/23 07:29 Time Spent with Patient Time Spent with Patient: 25-34 minutes Time was spent: preparing to see the patient(eg.review tests), obtaining and/or reviewing separately otained hiistory, ordering medications,tests, procedures, referring, communicating with other health palliative care coordinator, indepentently interpreting results, counseling the patient and care coordination
--- NOTE | 2023-03-07 14:29 | ROE_ITS ---
Date of service: 03/07/23 Time of Service: 14:29 Operative Note Operative Note DATE OF PROCEDURE: 03/07/23 PRE-OP DIAGNOSIS: Debridement of sacral decubitus ulcer PROCEDURE: Debridement sacral decubitus ulcer SURGEON: Kailey Vargas ANESTHESIA TYPE: Other ESTIMATED BLOOD LOSS: 10 PATHOLOGY: none sent COMPLICATIONS: None Patient was transported to: no change Patient's condition: stable Procedure Description: Patient is a quadriplegic well-known to the surgical service. She has a sacral decubitus ulcer. The ulcer is visualized today. There is obvious necrotic tissue in the wound bed. The wound is approximately 2 x 1 by half centimeter. The. It is quadriplegic and insensate. She does have a daily bowel program. This is her only area breakdown. The wound is not cultured, it is going to be to be poly microbial, and most likely Pseudomonas. She does have a Pseudomonas UTI. The wound was prepped and draped in the usual sterile fashion using a Betadine scrub solution. It is sharply debrided using scissors and a ADA ACCOMMODATION CONSULTANT curette. Electrocautery was used to provide hemostasis. It is packed with Gelfoam and dry gauze and sterile dressings are applied. Patient tolerated the procedure well without complication. Dr. Curtis was apprised of the findings. The wound does tunnel and the final measurement is 4 cm long by 2 cm wide by a centimeter deep. It does go down to the fat. On the bone feels intact at this point. Patient tolerated the procedure well without complication This document was created with voice activated software and may contain errors.
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
[2023-03-07] MEDS: Gelatin SPONGE 12-7 MM PKT 2 EACH TP (14:59)
[2023-03-07 15:10] VITALS: BP 143/68; PULSE 72; RESP 16; TEMP 36.5; O2SAT 95
[2023-03-07] MEDS: Gabapentin 600 MG TAB PO (21:31)
[2023-03-07] MEDS: Atorvastatin 10 MG TAB PO (21:31)
[2023-03-07] MEDS: Mirtazapine 15 MG TAB 7.5 MG PO (21:31)
[2023-03-07 23:30] VITALS: BP 135/74; PULSE 85; RESP 16; TEMP 36; O2SAT 94
[2023-03-08] VITALS (7 sets, daily range): BP systolic 156–180; BP diastolic 78–92; PULSE 74–86; RESP 16–22; TEMP 36–37.5; O2SAT 94–98
[2023-03-08] MEDS: Normal Saline Flush 10 ML SYR IVP (01:22)
[2023-03-08] MEDS: CEFEPIME 2 GM in Normal Saline 100 ML IVPB ×2 (01:22→14:04)
[2023-03-08] MEDS: Levothyroxine 75 MCG TAB PO (05:36)
[2023-03-08 08:44] LABS: Abs Immature Grans 0.07 10^3/uL (0.0-0.06); Absolute Basophil Count 0.05 10^3/uL (0.0-0.2); Absolute Eosinophil Count 0.16 10^3/uL (0.0-0.7); Absolute Lymphocyte Count 2.49 10^3/uL (1.2-3.4); Absolute Monocyte Count 0.22 10^3/uL (0.1-0.8); Absolute Neutrophil Count 2.45 10^3/uL (1.2-6.7); Basophils % 0.9; Eosinophils % 2.9; HCT 30.5 % (36.0-46.0); HGB 9.8 g/dL (11.2-15.7); Immature Grans % 1.3; Lymphocytes % 45.8; MCH 32.7 pg (27.0-33.0); MCHC 32.1 % (32.0-36.0); MCV 102 fL (80-95); MPV 9.9 fL (8.0-11.0); Neutrophils % 45.1; Platelet Count 192 10^3/uL (130-400); RDW 14.8 % (11.7-14.6); RDW-SD 54.9 fL; WBC 5.44 10^3/uL (4.4-10.8)
[2023-03-08] MEDS: Nystatin POWDER 15 GM JAR TP ×2 (09:02→14:10)
[2023-03-08] MEDS: Salt Supplement (BUFFERED) TAB 2 TAB PO (09:03)
[2023-03-08] MEDS: Diclofenac 1% Gel 100 GM TUBE TP ×2 (09:03→21:18)
[2023-03-08] MEDS: Cyanocobalamin 500 MCG TAB 1000 MCG PO (09:03)
[2023-03-08] MEDS: Omeprazole 20 MG CAPCR PO (09:03)
[2023-03-08] MEDS: metFORMIN 500 MG TAB 1000 MG PO (09:03)
[2023-03-08] MEDS: Mirabegron 25 MG TABCR PO (09:04)
[2023-03-08] MEDS: Calcium 600mg/Vit D 200U TAB 1 TAB PO (09:04)
[2023-03-08] MEDS: Multivitamin TAB 1 TAB PO (09:04)
[2023-03-08] MEDS: Magnesium Oxide 400 MG TAB PO (09:04)
[2023-03-08] MEDS: Gabapentin 400 MG CAP PO (09:04)
[2023-03-08] MEDS: Baclofen 10 MG TAB 20 MG PO (09:04)
[2023-03-08 09:07] LABS: Anion Gap 8.2 mmol/L (3-11); BUN 14 mg/dL (7-18); CO2 24.8 mmol/L (21.0-32.0); CREATININE 0.6 mg/dL (0.55-1.02); Calcium 8.1 mg/dL (8.5-10.1); Chloride 111 mmol/L (98-107); Estimated GFR 89.56 (mL/min/1.73m2); Glucose 102 mg/dL (74-106); Magnesium 1.5 mg/dL (1.8-2.4); Sodium 144 mmol/L (136-145)
[2023-03-08 09:17] LABS: Lab Add On Test DONE
[2023-03-08 10:00] LABS: Ferritin 65 ng/mL (8-252); Vitamin B12 1415 pg/mL (193-986)
[2023-03-08 10:04] LABS: Folate > 20.0 ng/mL (8.6-20.0)
--- NOTE | 2023-03-08 10:49 | PGE_ITS ---
Date of Service Date of service: 03/08/23 Time of Service: 10:49 Assessment and Plan Assessment and plan (1) Ulcer of sacral region, stage 3: Status: Acute Assessment and plan: - Daily dressing changes with silver impregnated alginate. Also change when soiled. -Patient is at high risk for further breakdown. She has turn every 2 hours. She is on an air mattress -She is receiving protein supplements. We will add in zinc sulfate and vitamin C to encourage wound healing -Continue supportive care. 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 She had no significant bleeding overnight. She is insensate where the wound is located no headaches. No CP or SOB. no productive cough. She has a suprapubic tube in place. She has some mild lower extremity edema. She has contractures in her hands and her feet from her quadriplegia Exam Narrative Exam Narrative: PLAN The woundis not sharply debrided.? The depth of the wound is down to the fat. Size: Width??2? cm? Length 4?? cm? Depth1??? cm? ? Undermining:??12- .5cm & 5 oclock - 1 cm position ? Wound Base:? granular:?minimal ? Slough:??debrided 03/07 ? Surrounding Tissue: Intact. There is no redness/drainage/maceration ? Pain:?None. Patient is insensate due to quadriplegia ? ? Abx: Cefepime Wound location: Sacral decubitus ulcer ? ? Vascular status: Not applicable Protein status: Protein supplements and oral protein ordered. Pressure offloading: Patient is not a Qtern 2 hours and air mattress Smoker: No Diabetes: Yes ? Wound care regimen: All supplies were arranged for the pt. [facility] was given instructions in diet, lifestyle modifications, bathing, supplements, and any newly prescribed medications. Pt was given instructions in wound care/activity and warning signs; pain meds, appt. for f/u and if has any questions or concerns, should call our clinic?or go to ER if after hrs.? All concerns addressed and questions answered. Pt should F/U: ?Number of minutes spent with the pt. >50% of the time is spent in?Counseling. Objective Last Vital Signs Temp 36.8 C 03/08/23 06:16 Pulse 74 03/08/23 06:16 Resp 16 03/08/23 06:16 BP 156/81 H 03/08/23 07:12 Pulse Ox 95 03/08/23 06:16 Laboratory Results - last 24 hr 03/07/23 03/08/23 03/08/23 07:35 07:35 07:35 WBC 5.44 RBC 3.00 L Hgb 9.8 L Hct 30.5 L MCV 102 H MCH 32.7 MCHC 32.1 RDW 14.8 H Plt Count 192 MPV 9.9 Immature Gran % 1.3 Neutrophils % 45.1 Lymphocytes % 45.8 Monocytes % 4.0 Eosinophils % 2.9 Basophils % 0.9 Nucleated RBC % 0.0 Absolute Neutrophils 2.45 Absolute Lymphocytes 2.49 Absolute Monocytes 0.22 Absolute Eosinophils 0.16 Absolute Basophils 0.05 Sodium 144 Potassium 4.0 Chloride 111 H Carbon Dioxide 24.8 Anion Gap 8.2 BUN 14 Creatinine 0.6 Est GFR (CKD-EPI 2020) 89.56 Glucose 102 Calcium 8.1 L Magnesium 1.5 L Ferritin Vitamin B12 Folate Add-On Test Request DONE 03/08/23 07:35 WBC RBC Hgb Hct MCV MCH MCHC RDW Plt Count MPV Immature Gran % Neutrophils % Lymphocytes % Monocytes % Eosinophils % Basophils % Nucleated RBC % Absolute Neutrophils Absolute Lymphocytes Absolute Monocytes Absolute Eosinophils Absolute Basophils Sodium Potassium Chloride Carbon Dioxide Anion Gap BUN Creatinine Est GFR (CKD-EPI 2020) Glucose Calcium Magnesium Ferritin 65 Vitamin B12 1415 H Folate > 20.0 H Add-On Test Request Time Spent with Patient Time Spent with Patient: <25 minutes Time was spent: preparing to see the patient(eg.review tests), ordering medications,tests, procedures, indepentently interpreting results, counseling the patient and care coordination
--- NOTE | 2023-03-08 13:53 | W.PM.PROGNOT ---
Date of Service Date of service: 03/08/23 Time of Service: 13:53 Assessment and Plan Assessment and plan (1) Pressure injury of skin with infection: Status: Acute Assessment and plan: present on admission, general surgery consulted, debrided wound yesterday continue wound care per instructed by surgery. high protein supplementation added. continue cefepime (2) Protein calorie malnutrition: Status: Acute Assessment and plan: add liquid protein BID in addition to the high protein shakes. nutrition following. (3) Acute UTI: Status: Acute Assessment and plan: present on admission. Urine C&S with pseudomonas. UA remains positive. Continue cefepime day 5. Blood cultures negative. Urology consulted due to recurrent UTIs and recommend weekly fosfomycin. The is also trying to get silver-impregnated catheters. Suprapubic catheter exchanged on admission. (4) Diabetes mellitus: Status: Chronic Assessment and plan: Continue metformin, SSI. Carb consistent diet. Qualifiers: Diabetes mellitus type: type 2 Diabetes mellitus administrative services coordinator insulin use: without residential use Diabetes mellitus complication status: without complication Qualified Code(s): E11.9 - Type 2 diabetes mellitus without complications (5) On deep vein thrombosis (DVT) prophylaxis: Status: Acute (6) DVT prophylaxis: Status: Acute Assessment and plan: enoxaparin daily (7) Discharge planning issues: Status: Acute Assessment and plan: care management and palliative care following. anticipate a discharge to home once antibiotic course completed discussed with Dr Curtis Subjective Subjective Patient reports: no new complaints, feels better, tolerating liquids well and tolerating a regular diet Exam Const General: cooperative, comfortable, no acute distress, well developed and well groomed Nutritional Appearance: average body habitus Orientation: alert, awake and oriented x3 HENMT Head: normal to inspection Ears: hearing grossly normal bilaterally Teeth and gingiva: multiple restorations Eyes General: appearance normal, both eyes and all related structures Eyelids: eyelids normal Sclera: sclerae normal Pupils: PERRL EOM: EOM intact bilaterally Resp Effort & Inspection: normal respiratory effort and able to speak in complete sentences Auscultation: clear to auscultation bilaterally Cardio Rate: regular rate Rhythm: regular rhythm Extrem Other: - Contractures of hands and feet Mild edema of lower extremities Objective Last Vital Signs Temp 36.8 C 03/08/23 06:16 Pulse 74 03/08/23 06:16 Resp 16 03/08/23 06:16 BP 156/81 H 03/08/23 07:12 Pulse Ox 95 03/08/23 06:16 Laboratory Results - last 24 hr 03/07/23 03/08/23 03/08/23 07:35 07:35 07:35 WBC 5.44 RBC 3.00 L Hgb 9.8 L Hct 30.5 L MCV 102 H MCH 32.7 MCHC 32.1 RDW 14.8 H Plt Count 192 MPV 9.9 Immature Gran % 1.3 Neutrophils % 45.1 Lymphocytes % 45.8 Monocytes % 4.0 Eosinophils % 2.9 Basophils % 0.9 Nucleated RBC % 0.0 Absolute Neutrophils 2.45 Absolute Lymphocytes 2.49 Absolute Monocytes 0.22 Absolute Eosinophils 0.16 Absolute Basophils 0.05 Sodium 144 Potassium 4.0 Chloride 111 H Carbon Dioxide 24.8 Anion Gap 8.2 BUN 14 Creatinine 0.6 Est GFR (CKD-EPI 2020) 89.56 Glucose 102 Calcium 8.1 L Magnesium 1.5 L Ferritin Vitamin B12 Folate Add-On Test Request DONE 03/08/23 07:35 WBC RBC Hgb Hct MCV MCH MCHC RDW Plt Count MPV Immature Gran % Neutrophils % Lymphocytes % Monocytes % Eosinophils % Basophils % Nucleated RBC % Absolute Neutrophils Absolute Lymphocytes Absolute Monocytes Absolute Eosinophils Absolute Basophils Sodium Potassium Chloride Carbon Dioxide Anion Gap BUN Creatinine Est GFR (CKD-EPI 2020) Glucose Calcium Magnesium Ferritin 65 Vitamin B12 1415 H Folate > 20.0 H Add-On Test Request Time Spent with Patient Time Spent with Patient: 25-34 minutes Time was spent: preparing to see the patient(eg.review tests), ordering medications,tests, procedures, referring, communicating with other health healthcare applications analyst and care coordination
[2023-03-08] MEDS: MAGNESIUM SULFATE 2 GM/50 ML BAG IVPB (15:38)
[2023-03-08] MEDS: Acetaminophen 325 MG TAB PO (17:58)
[2023-03-08 18:18] LABS: Bilirubin Negative (Negative); Blood Large (Negative); Clarity Sl Cloudy (Clear); Glucose Negative (Negative); Ketones Negative (Negative); Leukocyte Esterase Negative (Negative); Nitrite Negative (Negative); Specific Gravity 1.025 (1.005-1.025); Urobilinogen 0.2 mg/dL (Up to 0.2)
[2023-03-08 18:29] LABS: Bacteria Rare HPF (Negative); C & S Indicated? No; Casts Negative LPF (Negative); Crystals Negative HPF (Negative); Epithelial Cells Rare HPF (Negative); Mucus Trace (Negative); RBC >50 HPF (0-2); WBC 0-2 HPF (0-5)
--- NOTE | 2023-03-08 21:48 | NUR.NOTE ---
Nursing Note: Pt refused all medications. Shakes head no and refuses assistance with taking medication. Attempted x 2 to assist pt to take medications. Pt more lethargic, but arouses to tactile stimulation. Performed neuro assessment PERRL, smile equal with no facial droop. Unable to assess hand/ feet changes due to quadriplegia. Pt able to state first name, but would not state last name, shakes head. States as March but not day, year. Pt flustered with answering questions. Noted pt coughing while taking sips of water. Assessed VS and noted pt hypertensive. Notified CC Helene Ashby, RN who paged MD product distribution specialist and came to room to assess pt. Pt woke to Helene's voice and answered some questions by shaking head yes/ no and stated first name. Dr. Steve returned call. No new orders received at this time. Monitoring ongoing.
[2023-03-09] MEDS: CEFEPIME 2 GM in Normal Saline 100 ML IVPB ×2 (02:31→13:24)
[2023-03-09 06:20] VITALS: BP 171/81; PULSE 76; RESP 16; TEMP 36.7; O2SAT 95
--- NOTE | 2023-03-09 06:50 | NUR.NOTE ---
Nursing Note: 2200 dose of mirtazipine not given. Pt refused. MAR giving error saying undo process queued. Called and spoke with pharmacy who was unable to correct issue. Left message with IS.
[2023-03-09] MEDS: Diclofenac 1% Gel 100 GM TUBE TP ×2 (08:56→13:26)
[2023-03-09] MEDS: Docusate Sodium 100 MG/10 ML CUP PO (08:56)
[2023-03-09] MEDS: Nystatin POWDER 15 GM JAR TP ×2 (08:56→13:27)
[2023-03-09] MEDS: metFORMIN 500 MG TAB 1000 MG PO ×2 (08:57→21:37)
[2023-03-09] MEDS: Calcium 600mg/Vit D 200U TAB 1 TAB PO ×2 (08:57→21:37)
[2023-03-09] MEDS: Multivitamin TAB 1 TAB PO (08:58)
[2023-03-09] MEDS: Mirabegron 25 MG TABCR PO (08:58)
[2023-03-09] MEDS: Salt Supplement (BUFFERED) TAB 2 TAB PO ×3 (08:58→21:37)
[2023-03-09] MEDS: Aspirin E.C. 81 MG TABEC PO (08:59)
[2023-03-09] MEDS: Cyanocobalamin 500 MCG TAB 1000 MCG PO (08:59)
[2023-03-09] MEDS: Baclofen 10 MG TAB 20 MG PO ×3 (08:59→21:38)
[2023-03-09] MEDS: Gabapentin 400 MG CAP PO ×2 (09:00→13:26)
[2023-03-09] MEDS: Magnesium Oxide 400 MG TAB PO ×2 (09:01→21:38)
[2023-03-09] MEDS: Omeprazole 20 MG CAPCR PO (09:01)
[2023-03-09] MEDS: Vitamins B Comp w/C TAB 1 TAB PO (09:01)
[2023-03-09] MEDS: Zinc Sulfate 220 MG TAB PO (09:01)
[2023-03-09] MEDS: Normal Saline Flush 10 ML SYR IVP (09:02)
[2023-03-09 09:17] VITALS: BP 121/51; PULSE 77; RESP 17; TEMP 36.6; O2SAT 97
[2023-03-09] MEDS: Nystatin 500000 UNITS/5 ML SUSP 5ML CUP PO ×2 (10:51→13:24)
[2023-03-09] MEDS: Lisinopril 5 MG TAB 2.5 MG PO (13:25)
[2023-03-09 14:49] VITALS: BP 155/81; PULSE 85; TEMP 37; O2SAT 97
--- NOTE | 2023-03-09 15:44 | PGE_ITS ---
Date of Service Date of service: 03/09/23 Time of Service: 15:44 Assessment and Plan Assessment and plan (1) Pressure injury of skin with infection: Status: Acute Assessment and plan: present on admission, general surgery consulted, debrided wound yesterday continue wound care per instructed by surgery. high protein supplementation added. continue cefepime (2) Protein calorie malnutrition: Status: Acute Assessment and plan: add liquid protein BID in addition to the high protein shakes. nutrition following. (3) Acute UTI: Status: Acute Assessment and plan: present on admission. Urine C&S with pseudomonas. UA remains positive. Continue cefepime day 6. Blood cultures negative. Urology consulted due to recurrent UTIs and recommend weekly fosfomycin. The is also trying to get silver-impregnated catheters. Suprapubic catheter exchanged on admission. (4) Diabetes mellitus: Status: Chronic Assessment and plan: Continue metformin, SSI. Carb consistent diet. Qualifiers: Diabetes mellitus complication status: without complication Diabetes mellitus terminal manager insulin use: without residential use Diabetes mellitus type: type 2 Qualified Code(s): E11.9 - Type 2 diabetes mellitus without complications (5) On deep vein thrombosis (DVT) prophylaxis: Status: Acute (6) DVT prophylaxis: Status: Acute Assessment and plan: enoxaparin daily (7) Discharge planning issues: Status: Acute Assessment and plan: care management and palliative care following. anticipate a discharge to home once antibiotic course completed discussed with Dr Rosado Subjective Subjective Patient reports: no new complaints and afebrile Exam Const General: cooperative, comfortable, no acute distress, well developed and well groomed Nutritional Appearance: average body habitus Orientation: alert, awake and oriented x3 HENMT Head: normal to inspection Ears: hearing grossly normal bilaterally Teeth and gingiva: multiple restorations Eyes General: appearance normal, both eyes and all related structures Eyelids: eyelids normal Sclera: sclerae normal Pupils: PERRL EOM: EOM intact bilaterally Resp Effort & Inspection: normal respiratory effort and able to speak in complete sentences Auscultation: clear to auscultation bilaterally Cardio Rate: regular rate Rhythm: regular rhythm Extrem Other: - Contractures of hands and feet Mild edema of lower extremities Objective Last Vital Signs Temp 37.0 C 03/09/23 14:49 Pulse 85 03/09/23 14:49 Resp 17 03/09/23 09:17 BP 155/81 H 03/09/23 14:49 Pulse Ox 97 03/09/23 14:49 Laboratory Results - last 24 hr 03/08/23 17:23 Urine Color Yellow Urine Clarity Sl Cloudy Urine pH 6.0 Ur Specific [place] 1.025 Urine Protein 100 H Urine Ketones Negative Urine Blood Large H Urine Nitrite Negative Urine Bilirubin Negative Urine Urobilinogen 0.2 Ur Leukocyte Esterase Negative Urine RBC >50 H Urine WBC 0-2 Ur Epithelial Cells Rare Urine Crystals Negative Urine Bacteria Rare Urine Casts Negative Urine Mucus Trace Ur Culture Indicated? No Urine Glucose Negative Time Spent with Patient Time Spent with Patient: 25-34 minutes Time was spent: preparing to see the patient(eg.review tests), referring, communicating with other health career development coordinator/teacher and counseling the patient (and )
--- NOTE | 2023-03-09 17:05 | PDOC.CMPRO ---
Date of service: 03/09/23 Time of Service: 17:05 Care Management Progress Note Progress Note Text Progress Note Text: S/O: Heavenly was lying in bed when CM met with her and her , Marcos, with the provider present. CM reviewed her discharge plan and goals, stating that per provider, she will be discharged tomorrow at 1pm on oral antibiotics. Heavenly is very agreeable to this plan, as she has made it clear to all staff members that she wants to be home. CM discussed SNF placement, which she declines, as she reports that her goal is to be home. Her , Marcos had questions for the provider about Heavenly having UTIs often. The provider explained that she may continue to have recurrent UTIs, but she is being sent home on antibiotics. Per provider her labs and vitals are stable, and her acute infection has been resolved. CM contacted [facility] to inform them of her impending discharge, and they stated that they would resume her care on Thursday, the day after discharge. CM will coordinate EMS transport. CM will continue to follow. A: Gerardo is an 82 year old woman admitted on 02/14/23 with hyponatremia. P:?Anticipate, Gerardo will be discharged home with a resumption of [facility] and [facility] caregiver services, when medically cleared by provider. She will follow up with her PCP and plan of care as instructed following discharge.? She will be transported home by EMS coordinated by CM.?Gerardo is interested in Hospice services, [facility] will coordinate a Hospice consult with Heavenly and her family after discharge.? CM will continue to support patient and discharge planning needs.
[2023-03-09 21:15] VITALS: BP 160/78; PULSE 78; RESP 16; TEMP 37.5; O2SAT 96
[2023-03-09] MEDS: Gabapentin 600 MG TAB PO (21:38)
[2023-03-09] MEDS: Atorvastatin 10 MG TAB PO (21:38)
[2023-03-09] MEDS: Mirtazapine 15 MG TAB 7.5 MG PO (21:39)
[2023-03-10] MEDS: CEFEPIME 2 GM in Normal Saline 100 ML IVPB (02:26)
[2023-03-10] MEDS: Levothyroxine 75 MCG TAB PO (06:27)
[2023-03-10 07:25] VITALS: BP 164/93; PULSE 82; RESP 17; TEMP 37.6; O2SAT 96
[2023-03-10] MEDS: Nystatin 500000 UNITS/5 ML SUSP 5ML CUP PO (07:51)
[2023-03-10] MEDS: Salt Supplement (BUFFERED) TAB 2 TAB PO (07:54)
[2023-03-10] MEDS: Aspirin E.C. 81 MG TABEC PO (07:54)
[2023-03-10] MEDS: Gabapentin 400 MG CAP PO (07:54)
[2023-03-10] MEDS: Lisinopril 5 MG TAB 2.5 MG PO (07:54)
[2023-03-10] MEDS: metFORMIN 500 MG TAB 1000 MG PO (07:57)
[2023-03-10] MEDS: Baclofen 10 MG TAB 20 MG PO (07:57)
[2023-03-10] MEDS: Magnesium Oxide 400 MG TAB PO (07:57)
[2023-03-10] MEDS: Omeprazole 20 MG CAPCR PO (07:58)
[2023-03-10] MEDS: Mirabegron 25 MG TABCR PO (07:58)
[2023-03-10] MEDS: Nystatin POWDER 15 GM JAR TP (07:59)
[2023-03-10] MEDS: Normal Saline Flush 10 ML SYR IVP (07:59)
[2023-03-10] MEDS: Diclofenac 1% Gel 100 GM TUBE TP (07:59)
--- NOTE | 2023-03-10 10:11 | W.PM.DS.N ---
Date of service: 03/10/23 Time of Service: 10:11 DS: Diagnosis Discharge Diagnosis (1) Pressure injury of skin with infection: Status: Acute (2) Protein calorie malnutrition: Status: Acute (3) Acute UTI: Status: Acute (4) Diabetes mellitus: Status: Chronic Discharge Plan Disposition Patient Disposition: Home W/Home Health Services Condition: Stable Discharge Details Reason For Visit: UTI Associated with an Indwelling Catheter/ Admit Date/Time: 03/03/23 14:13 Admit Provider: Lauren Curtis Attending Provider: Lauren Curtis Hospital Course Hospital Course: This is an 82-year-old female patient with multiple recent hospitalizations for sepsis secondary to recurrent urinary tract infections with chronic suprapubic catheter and stage IV pressure ulcer. She is a quadriplegic lives home with her and has been having more difficulties managing at home. Her urine culture was positive for Pseudomonas which which was sensitive to the cefepime she was treated with. She completed 7 days of treatment. She has been afebrile she is back to her baseline. Surgery did evaluate her and debrided her pressure ulcer. High-protein supplementation was added. Medically she is stable we have been [place] [facility] [place] [facility] as her family is not able to manage her needs at home but patient has adamantly declined to be discharged to a rehab facility. Case management has been following she is to be discharged to home with resumption of home health services we will continue to treat a possible infection of her decubitus also suspected to be Pseudomonas with the ciprofloxacin based on her culture report. She is being discharged back to home by ambulance for medical necessity. Discharge discussed with Dr. Rosado Home Meds and New Rx's Prescriptions: New B-complex with vitamin C Tablet 1 tab PO DAILY Qty: 30 0RF Phlexy-Vits 15 mg- 700 mcg Powder In Packet 1 oz PO TID Qty: 90 0RF lisinopril 5 mg Tablet 2.5 mg PO DAILY Qty: 30 0RF ciprofloxacin HCl 500 mg tablet 500 mg PO BID Qty: 16 0RF Continued magnesium oxide 400 mg magnesium capsule 800 mg PO BID cyanocobalamin (vitamin B-12) 1,000 mcg capsule 1,000 mcg PO DAILY Patient Comments: not on med list calcium carbonate-vitamin D3 [Calcium 500 With D] 500 mg(1,250mg) -400 unit Tablet 1 tab PO BID gabapentin 600 mg tablet 600 mg PO HS Rx Instructions: (in addition 400mg BID @ 08,12) sennosides [senna] 8.6 mg Tablet 8.6 mg PO QHS omeprazole 20 mg Tablet,Delayed Release (Dr/Ec) 20 mg PO DAILY ondansetron 4 mg tablet,disintegrating 4 mg PO Q8H PRNQty: 10 0RF meclizine 25 mg Tablet 25 mg PO PRN PRN diclofenac sodium 1 % Gel 1 applic TOPICAL QID multivitamin Tablet 1 tab PO DAILY metformin 500 mg Tablet 1,000 mg PO BID atorvastatin 10 mg Tablet 10 mg PO HS aspirin 81 mg Tablet,Delayed Release (Dr/Ec) 81 mg PO DAILY baclofen 10 mg tablet 20 mg PO TID gabapentin [Neurontin] 400 mg capsule 400 mg PO BID Rx Instructions: @ 08 & noon (in addition to 600mg qHS) nystatin 100,000 unit/gram Powder 60 g topical TID Qty: 60 0RF Patient Comments: not on med list Thermotabs 287-180-15 mg Tablet 2 tab PO TID Qty: 60 0RF Patient Comments: not on med list mirtazapine 7.5 mg tablet 7.5 mg PO QHS Qty: 30 0RF Patient Comments: not on med list Changed levothyroxine 75 mcg tablet 75 mcg PO QAM Qty: 0 0RF No Action AZO D-Mannose 500 mg capsule 1,000 mg PO BID Patient Comments: not on med list lidocaine 5 % cream 1 applic topical TID PRN Patient Comments: not on med list Renacidin 1,980.6 mg-59.4 mg-980.4mg/30mL solution 30 ml irrigation DAILY naltrexone 50 mg Tablet 1.5 mg PO DAILY Enemeez Plus 283-20 mg Enema 1 ea MI DAILY epinephrine 0.3 mg/0.3 mL Auto-Injector 0.3 mg IM PRN PRN lisinopril 2.5 mg Tablet 2.5 mg PO DAILY Desitin Ointment 1 applic TOPICAL BID acetaminophen 325 mg Capsule 650 mg PO PRN PRN cetirizine 10 mg Capsule 10 mg PO PRN PRN Biofreeze 0.2-3.5 % Gel 1 applic TOPICAL Q2H Myrbetriq 25 mg tablet extended release 24 hr 25 mg PO DAILY Patient Comments: TAKE ONE TABLET BY MOUTH EVERY DAY fluconazole 200 mg tablet 200 mg PO 1XD prednisone 20 mg tablet 20 mg PO 1XD mupirocin 2 % ointment 1 applic TOPICAL 3XD Patient Comments: APPLY A THIN FILM TO AREA ON RIGHT SIDE OF FACE 1 CM ROUND THREE TIMES A DAY amoxicillin-pot clavulanate 875-125 mg tablet 875 tab PO Q10-12H Patient Comments: TAKE ONE TABLET BY MOUTH EVERY 12 HOURS Discharge Instructions Instructions: How to Care for Your Suprapubic Catheter (DC), Pressure Injury (DC), Catheter-associated Urinary Tract Infection (DC) Stand Alone Forms: Nursing Discharge Form Activity:: turn q2h while awake Equipment/Supplies:: No Equipment Needed Diet:: As Tolerated Discharge Orders Discharge Orders: Discharge Order (Routine); Ordered 03/10/23 Ordered By: Kae Guo Discharge Data Discharge Date/Time-TO BE ENTERED AT DEPARTURE: 03/10/23 13:00 Discharge Comment: [facility] took home with family DS: Summary Time Spent with Patient providing and/or coordinating discharge services: Greater than 30 minutes Status at Discharge Functional status at discharge: bed bound Overall status at discharge: patient is not back to baseline Mental Status: mental status grossly normal Speech and Movement: speech and movement normal Mood: congruent mood Affect: normal affect and blunted Exam Const General: cooperative, comfortable, no acute distress, well developed and well groomed Nutritional Appearance: average body habitus Orientation: alert, awake and oriented x3 HENMT Head: normal to inspection Ears: hearing grossly normal bilaterally Teeth and gingiva: multiple restorations Eyes General: appearance normal, both eyes and all related structures Eyelids: eyelids normal Sclera: sclerae normal Pupils: PERRL EOM: EOM intact bilaterally Resp Effort & Inspection: normal respiratory effort and able to speak in complete sentences Auscultation: clear to auscultation bilaterally Cardio Rate: regular rate Rhythm: regular rhythm Extrem Other: - Contractures of hands and feet Mild edema of lower extremities Psych Mental Status: mental status grossly normal Speech and Movement: speech and movement normal Mood: congruent mood Affect: normal affect and blunted DS: Data Vitals/I&O Vitals and I&O: Vital Signs Temperature 37.6 C H 03/10/23 07:25 Temperature Source Tympanic 03/10/23 07:25 Pulse 82 03/10/23 07:25 Pulse Rhythm Regular 03/10/23 07:50 Pulse 85 03/03/23 15:30 Respiratory Rate 17 03/10/23 07:25 Respiratory Effort Normal, Non-Labored, Short of Breath 03/10/23 07:50 Respiratory Depth Normal 03/10/23 07:50 Respiratory Pattern Normal 03/10/23 07:50 Blood Pressure 164/93 H 03/10/23 07:25 Blood Pressure Mean 84 03/03/23 10:46 Pulse Oximetry 96 03/10/23 07:25 Oxygen Delivery Method Room Air 03/10/23 07:25 Oxygen Flow Rate 0 03/10/23 07:25 Pain Level 0 03/09/23 22:57 Comment Temp and BP called over radio 03/10/23 07:25 Intake & Output 03/09/23 03/09/23 03/10/23 11:59 23:59 11:59 Intake Total 100 / 410 310 / 410 100 / 100 Output Total 900 / 900 1050 / 1050 Balance -800 / -490 310 / -490 -950 / -950 Weight 75.3 kg 77 kg Intake: IV 100 / 200 100 / 200 100 / 100 Oral 210 / 210 Output: Urine 900 / 900 1050 / 1050 Stool 0 / 0 Other: Urine Color Straw Pale Yellow Urine Appearance Clear Cloudy Clear Sediment PFSH All Active Problems (Updated 03/13/23 @ 11:19 by Elisa Ramos MD) Stage IV pressure ulcer (Acute) Pain (Acute) Dying care (Acute) Comfort measures only status (Acute) Acute hyperkalemia (Acute) Altered mental status (Acute) Intra-abdominal fluid collection (Acute) Intra-abdominal abscess (Acute) Sepsis syndrome (Acute) Ulcer of sacral region, stage 3 (Acute) pressure related. At high risk for skin breakdown (Acute) Chronic anemia (Acute) Pressure injury of skin with infection (Acute) Bacteriuria (Acute) Palliative care encounter (Acute) Protein calorie malnutrition (Acute) Unintentional weight loss of 10% body weight within 6 months (Acute) Advance care planning (Acute) Deficit in activities of daily living (ADL) (Acute) Bedbound (Acute) Encounter for hospice care (Acute) Dysphagia (Acute) General weakness (Acute) Acute UTI (Acute) Discharge planning issues (Acute) DVT prophylaxis (Acute) Former cigarette smoker (Acute) Depression (Chronic) Yeast cystitis (Acute) Pleural thickening (Acute) Pleural effusion (Acute) Pressure ulcer (Acute) Quadriplegia (Chronic) due to fall at home in February 2018 Constipation (Acute) Shortness of breath (Acute) Pneumonia (Acute) Acute UTI (Acute) Spinal stenosis, lumbar (Acute) Primary malignant neoplasm of breast (Acute) Neurogenic claudication (Acute) Hypothyroidism (Chronic) Hypertension (Chronic) Constipation due to neurogenic bowel (Acute) Benign neoplasm of colon (Acute) Autonomic dysreflexia (Acute) Arm edema (Acute) Nail dystrophy (Acute) UTI (urinary tract infection) (Acute) Transaminitis (Acute) Bladder spasm (Acute) COVID-19 ruled out (Acute) Neuropathic pain of finger of right hand (Acute) Fungal dermatitis (Acute) Chronic suprapubic catheter (Chronic) Hypomagnesemia (Acute) Acute UTI (Acute) Infiltrate of lung present on imaging of chest (Acute) UTI (urinary tract infection) (Acute) Hyperlipemia (Chronic) Intracranial aneurysm (Chronic) AAA (abdominal aortic aneurysm) (Chronic) Suprapubic catheter (Chronic) Diabetes mellitus (Chronic) Neurogenic bladder (Chronic) Medical History Cervical disc disorder CTS (carpal tunnel syndrome) left wrist ESBL (extended spectrum beta-lactamase) producing bacteria infection History of breast cancer Interstitial lung disease Surgical History H/O breast surgery H/O cervical spine surgery S/P cholecystectomy S/P excisional debridement (~02/2023) S/P rotator cuff repair S/P trigger finger release S/P tubal ligation Social History Smoking/Tobacco Use Status: Former Tobacco Use Quit Date: 08/17/06 Pack-years: 40 Smoking risk assessment performed?: Yes Alcohol Intake: never Drug use: Never Substance use type: does not use Housing: house Current gender identity: female Do you feel safe at home: Yes Do you feel safe in your relationship?: Yes Additional Social history: lives with her in [place], [place]. Has home health. Time Spent with Patient Time Spent with Patient: 45-69 minutes Time was spent: preparing to see the patient(eg.review tests), ordering medications,tests, procedures, referring, communicating with other health career information specialist, counseling the patient (family) and care coordination
--- NOTE | 2023-03-10 15:00 | CMDISCH_ITS ---
Date of service: 03/10/23 Time of Service: 15:00 LACE Index Scoring Tool Questions: Length of Stay (in days): 7 - 13 Was the patient admitted via the E.D.?: Yes Comorbidities: Diabetes w/o Complication E.D. Visits: 5 Answers: Total Score: 13 Risk of Readmission: High Risk Care Management Discharge Plan Reason for Hospitalization: UTI Discharge Plan: Gerardo returned home today with a resumption of care from [facility]. CM informed [facility] of her discharge, and they stated that they will resume care for her tomorrow. She transported via [facility], coordinated by CM. CM discussed her discharge plan at length with Heavenly and her , Marcos. Heavenly was provided the option of going to a nursing home facility, which she declined. Heavenly is agreeable to having a hospice consult at home, which [facility] will support. She will follow up with her PCP and discharge plan of care. She is happy to be going home. Patient/Family Education Needs: Review discharge instructions and limitations, discussion of self care needs including ask me three. Services Needed at Discharge: Home Health Care Services (resumption of HH RN and caregiver support) and Transportation ([facility])
== END 2023-03-10 13:00 | disposition home health service (06) | DRG 698 ==
LOC: ER 15:34 → MS 15:46
PROVIDERS: Nurse Practitioner Acute Care; Surgery; Admitting Provider Internal Medicine; Emergency Provider Emergency Medicine; Visit Provider Internal Medicine
DX: T83.510A Infection and inflammatory reaction due to cystostomy catheter, initial encounter; G82.50 Quadriplegia, unspecified; L89.153 Pressure ulcer of sacral region, stage 3; N39.0 Urinary tract infection, site not specified; E46 Unspecified protein-calorie malnutrition; K59.2 Neurogenic bowel, not elsewhere classified; J84.9 Interstitial pulmonary disease, unspecified; N31.9 Neuromuscular dysfunction of bladder, unspecified; Z93.59 Other cystostomy status; E11.9 Type 2 diabetes mellitus without complications; J92.9 Pleural plaque without asbestos; R13.10 Dysphagia, unspecified; R53.1 Weakness; Z74.01 Bed confinement status; Z68.34 Body mass index [BMI] 34.0-34.9, adult; Z79.84 Long term (current) use of oral hypoglycemic drugs; E78.5 Hyperlipidemia, unspecified; Z87.891 Personal history of nicotine dependence; F32.A Depression, unspecified; Z85.3 Personal history of malignant neoplasm of breast; M48.062 Spinal stenosis, lumbar region with neurogenic claudication; E03.9 Hypothyroidism, unspecified; I10 Essential (primary) hypertension; K59.00 Constipation, unspecified; R74.01 Elevation of levels of liver transaminase levels; G90.4 Autonomic dysreflexia; E83.42 Hypomagnesemia; I71.40 Abdominal aortic aneurysm, without rupture, unspecified; B96.5 Pseudomonas (aeruginosa) (mallei) (pseudomallei) as the cause of diseases classified elsewhere; D64.9 Anemia, unspecified; L08.9 Local infection of the skin and subcutaneous tissue, unspecified
CPT/HCPCS: 97597; 36415; 80048; 80053; 82805; 84145; 87040; 87077; 87637; 92610; 93005; 96360; 96361; 97163; 99285; J1650; 71045; 81003; 81015; 82607; 82728; 82746; 83540; 83550; 83605; 83735; 84443; 84484; 85025; 85610; 85730; 87086; 87186; 93010; 99223; 99232; 99233; 99239

== ENCOUNTER 2023-03-10 20:47 | Inpatient (IN) | payer OTHER, SELFPAY ==
[2023-03-10] VITALS (55 sets, daily range): BP systolic 83–133; BP diastolic 43–60; PULSE 67–128; RESP 8–67; TEMP 36.5; O2SAT 90–100
--- NOTE | 2023-03-10 20:45 | DI.CT_ITS ---
Exam(s) CT HEAD WO EXAM: CT HEAD WO CLINICAL HISTORY: altered mental status. TECHNIQUE: Imaging Protocol: Axial computed tomography images with coronal and sagittal reformatted images were created and reviewed COMPARISON: No exams were available for comparison FINDINGS: Ventricles and Extra axial spaces: Normal in size and morphology for the patient's age. Hemorrhage: None. Cerebral parenchyma: No evidence of an acute territorial infarct. Dystrophic calcification is seen i n the right frontal lobe. Mild chronic microvascular ischemic change. Midline shift: None. Brainstem/Cerebellum: Normal. Calvarium: Normal. Visualized Paranasal sinuses/Mastoids: Clear. Soft Tissues: Unremarkable. IMPRESSION: No acute intracranial process. RADIATION DOSE DELIVERED: Total DLP DATA REPOSITORY: All CT scans at this facility are submitted to the National Radiology Data Registry (NRDR) Dose Index Registry (DIR) with the [employer] ([employer]). RADIATION OPTIMIZATION: All CT scans at this facility use at least one of these dose optimization te chniques: automated exposure control; mA and/or kV adjustment per patient size (includes targeted exa ms where dose is matched to clinical indication); or iterative reconstruction.
[2023-03-10 21:11] LABS: BE (Venous) -4 mmol/L (-2-3); HCO3 (Venous) 22 mmol/L (23-28); O2 Sat (Venous) 67 %; TCO2 (Venous) 20 mmol/L (24-29); pCO2 (Venous) 41 mmHg (41-51); pH (Venous) 7.33 (7.31-7.41); pO2 (Venous) 37 mmHg
[2023-03-10 21:13] LABS: Abs Immature Grans 0.25 10^3/uL (0.0-0.06); Absolute Basophil Count 0.09 10^3/uL (0.0-0.2); Absolute Eosinophil Count 0.01 10^3/uL (0.0-0.7); Absolute Lymphocyte Count 1.34 10^3/uL (1.2-3.4); Absolute Monocyte Count 0.42 10^3/uL (0.1-0.8); Basophils % 0.6; Eosinophils % 0.1; HCT 42.7 % (36.0-46.0); Immature Grans % 1.7; Lymphocytes % 9.3; MCH 32.8 pg (27.0-33.0); MCHC 32.3 % (32.0-36.0); MCV 101 fL (80-95); MPV 9.5 fL (8.0-11.0); Monocytes % 2.9; Neutrophils % 85.4; RBC 4.21 10^6/uL (3.93-5.22); RDW-SD 56.5 fL; WBC 14.41 10^3/uL (4.4-10.8)
[2023-03-10 21:15] LABS: Lactate 3.2 mmol/L (0.6-1.4)
[2023-03-10 21:19] LABS: Absolute Neutrophil Count 12.31 10^3/uL (1.2-6.7); HGB 13.8 g/dL (11.2-15.7); Platelet Count 362 10^3/uL (130-400)
[2023-03-10] MEDS: Normal Saline 500 ML IV (21:21)
[2023-03-10 21:28] LABS: INR 1.1 (0.9-1.1); PTT Activated 20.1 sec (21.5-31.9); Prothrombin Time 11.1 sec (9.3-11.0)
[2023-03-10 21:33] LABS: Bilirubin Negative (Negative); Blood Small (Negative); Clarity Clear (Clear); Glucose Negative (Negative); Ketones Trace mg/dL (Negative); Leukocyte Esterase Negative (Negative); Nitrite Negative (Negative); Specific Gravity 1.015 (1.005-1.025); Urobilinogen 0.2 mg/dL (Up to 0.2)
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
[2023-03-10 21:49] LABS: BUN 17 mg/dL (7-18); CREATININE 0.9 mg/dL (0.55-1.02); Calcium 8.4 mg/dL (8.5-10.1); Glucose 187 mg/dL (74-106)
[2023-03-10 21:50] LABS: ALT 19 U/L (14-59); AST 32 U/L (15-37); Albumin 2.6 g/dL (3.4-5.0); Alkaline Phosphatase 62 U/L (46-116); Anion Gap 10.2 mmol/L (3-11); Bilirubin, Total 0.5 mg/dL (0.2-1.0); CO2 21.8 mmol/L (21.0-32.0); Chloride 106 mmol/L (98-107); Estimated GFR 63.83 (mL/min/1.73m2); NT-proBNP 1184 pg/mL (<300); Sodium 138 mmol/L (136-145); TSH (W/Ref FT4) 13.35 uIU/mL (0.36-3.74); Total Protein 6.6 g/dL (6.4-8.2); Troponin I < 50 ng/L (<or=60)
--- NOTE | 2023-03-10 21:51 | NUR.NOTE ---
Nursing Note: Report to Heather Montague
--- NOTE | 2023-03-10 22:00 | RT.EKG_ITS ---
APPROVED REPORT Exam: Resting ECG Reason for Exam: hyperkalemia Patient Location: E HR:112 bpm ECG Measurements Heart Rate 112 AXIS NC 146 P 67 QRSd 81 QRS 22 QT 326 T 24 QTc 445 Conclusion Sinus tachycardia...rate> 99 Physician: no stemi, minimally peaked t waves in V2, QRS morphology otherwise unchanged from prior ek g's
[2023-03-10 22:05] LABS: Bacteria Rare HPF (Negative); C & S Indicated? No; Crystals Negative HPF (Negative); Epithelial Cells Rare HPF (Negative); Mucus Trace (Negative); WBC 0-2 HPF (0-5)
[2023-03-10] MEDS: Omnipaque 350 MG/ML 100 ML BTL IJ (22:05)
[2023-03-10] MEDS: Normal Saline - Diluent 50 ML VIAL IJ (22:06)
[2023-03-10] MEDS: Normal Saline Flush 10 ML SYR IVP (22:07)
--- NOTE | 2023-03-10 22:08 | DI.CT_ITS ---
Exam(s) CT CHEST PE ABD PELVIS W EXAM: CT CHEST PE ABD PELVIS W CLINICAL HISTORY: altered, sob, quadriplegic, elevated bili, not ea. TECHNIQUE: Imaging Protocol: Axial CT angiography was performed with multi-slice acquisition and mu lti-planar and/or 3D reconstructions. CONTRAST MATERIAL: Intravenous: Omnipaque 350contrast volume:100 mL COMPARISON: CT CT PELVIC WO from 06/16/[address] CHEST/ABD/PEL WO from 01/28/2023 FINDINGS: The examination is limited due to patient motion artifact. There are old healed left rib fractures. CHEST: Tracheobronchial tree: Patent where visualized. Pulmonary parenchyma: No consolidation or dominant measurable mass. No architectural distortion. Pulmonary Arteries: No evidence of filling defect to suggest pulmonary emboli. Mediastinum and Zulema: No dominant adenopathy or fluid collection. The esophagus is unremarkable. Visualized thyroid gland: Unremarkable. Pleura: There are small bilateral pleural effusions. There is a subjacent infiltrate in the left low er lobe. This may represent atelectasis or pneumonia. Heart: The heart is not dilated. Coronary artery calcification is present. No pericardial effusion. Aorta: The ascending thoracic aorta measures 3.2 x 2.9 cm. No evidence of dissection. Atheroscleros is is present. Bones: Within normal limits for the patient's age. Postsurgical changes are seen in the lower cervica l spine. Soft tissues: Unremarkable. ABDOMEN: Liver: Normal density. The liver has a mildly nodular con pony it suggesting hepatic cirrhosis. Portal, Superior Mesenteric, and Splenic Veins: Unremarkable. Gallbladder and Biliary Tract: Status post cholecystectomy. No biliary ductal dilatation. Pancreas: Normal density, no abnormal calcifications or inflammatory process. Spleen: Normal. Adrenals: No masses seen. Kidneys: Normal size, contour and axis. No radiodense stones or obstructive uropathy. There is a 3-4 mm hypodensity in the inferior pole of the left kidney. This is too small for further characterizati on but likely reflects a small cyst. No suspicious renal masses are seen. No follow-up is recommend ed. Abdominal Aorta: There is a 3.5 x 3.3 cm infrarenal abdominal aortic aneurysm. There is marked ather osclerosis. Bowel: There is wall thickening in loops of small bowel in the left abdomen. There is no evidence of bowel obstruction. Appendix is unremarkable. Peritoneal Cavity: There is a small amount of pelvic ascites. There is a small amount of perihepatic and perisplenic ascites. No free air. Lymph Nodes: Within normal limits. Bones: Within normal limits for the patient's age. There has been no change in appearance of the L4- L5 disc space. Soft Tissues: There is a new small air-fluid pocket in the right buttocks medially extending to the s kin surface. It measures 2.5 x 1.2 cm. There is edema seen in the subcutaneous tissues in the left lateral abdominal wall. PELVIS: Bladder: There is a suprapubic catheter in place. The urinary bladder is incompletely distended limi ting evaluation. Reproductive Organs: Unremarkable as visualized. Lymph Nodes: Within normal limits. Bones: Within normal limits. IMPRESSION: 1. No evidence of pulmonary embolism or thoracic aortic dissection. The ascending thoracic aorta raquel sures 3.2 cm maximally. 2. There is a small left pleural effusion and subjacent infiltrate which may represent atelectasis or pneumonia. Please correlate clinically. 3. There is wall thickening in loops of small bowel in the left abdomen. This may represent an infec tious/inflammatory process. Please correlate clinically. 4. 3.5 x 3.3 cm infrarenal abdominal aortic aneurysm without evidence of dissection. 5. Abdominal pelvic ascites. 6. Small fluid collection in the subcutaneous tissues in the right gluteal region which may represent a small abscess. RADIATION DOSE DELIVERED: Total DLP DATA REPOSITORY: All CT scans at this facility are submitted to the National Radiology Data Registry (NRDR) Dose Index Registry (DIR) with the [employer] (A[employer]). RADIATION OPTIMIZATION: All CT scans at this facility use at least one of these dose optimization te chniques: automated exposure control; mA and/or kV adjustment per patient size (includes targeted exa ms where dose is matched to clinical indication); or iterative reconstruction.
[2023-03-10 22:17] LABS: FREE T4 1.33 ng/dL (0.76-1.46)
--- NOTE | 2023-03-10 22:37 | DI.VRAD_ITS ---
PROCEDURE INFORMATION: Exam: CT Head Without Contrast Exam date and time: 03/10/2023 10:17 PM Age: 82 years old Clinical indication: Altered mental status/memory loss; Confusion or disorientation; Patient HX: AMS; Additional info: Quadriplegic TECHNIQUE: Imaging protocol: Computed tomography of the head without contrast. Radiation optimization: All CT scans at this facility use at least one of these dose optimization techniques: automated exposure control; mA and/or kV adjustment per patient size (includes targeted exams where dose is matched to clinical indication); or iterative reconstruction. COMPARISON: CR XR cervical sp lai trauma 2-3V 06/01/2018 12:56 PM FINDINGS: Brain: Dystrophic calcification in the right frontal lobe. There are moderate periventricular and subcortical lucencies consistent with chronic microvascular ischemic changes.The myers-white differentiation is maintained. No hemorrhage. No edema. Cerebral ventricles: No ventriculomegaly. Paranasal sinuses: Visualized sinuses are unremarkable. No fluid levels. Mastoid air cells: Visualized mastoid air cells are well aerated. Orbital cavities: Bilateral cataract surgery. Bones/joints: Unremarkable. No acute fracture. Soft tissues: Unremarkable. IMPRESSION: No acute intracranial abnormality. Chronic microvascular ischemic changes. Dictated and Authenticated by: Cuco Young MD. Ordering:MARIS Loera MD
[2023-03-10] MEDS: Albuterol 2.5 MG/3 ML INH SOLN VIAL UPD (22:40)
[2023-03-10] MEDS: Insulin REGULAR-Human 100 UNITS/ML UNIT 10 UNITS SC (23:17)
[2023-03-10] MEDS: Calcium Gluconate 4.65 MEQ/10 ML VIAL 4.65 MG IVP (23:30)
[2023-03-10] MEDS: Normal Saline 100 ML (23:32)
--- NOTE | 2023-03-10 23:33 | DI.VRAD_ITS ---
PROCEDURE INFORMATION: Exam: CTA Chest With Contrast CTA Abdomen With Contrast Exam date and time: 03/10/2023 10:24 PM Age: 82 years old Clinical indication: Other: Not eating; Shortness of breath and other: Hypoxic; Patient HX: Altered, SOB, quadriplegic, rule out pe; Additional info: Elevated bili, not eating TECHNIQUE: Imaging protocol: Computed tomographic angiography of the chest with contrast. Exam focused on the arteries. Computed tomographic angiography of the abdomen with contrast. Exam focused on the arteries. 3D rendering (Not supervised by radiologist): MIP and/or 3D reconstructed images were created by the technologist. Radiation optimization: All CT scans at this facility use at least one of these dose optimization techniques: automated exposure control; mA and/or kV adjustment per patient size (includes targeted exams where dose is matched to clinical indication); or iterative reconstruction. Contrast material: OMNIPAQUE 350; Contrast volume: 100 ml; Contrast route: INTRAVENOUS (IV); COMPARISON: CT CHEST/ABD/PEL WO 01/28/2023 8:01 PM FINDINGS: VASCULATURE: Pulmonary arteries: Normal. No pulmonary emboli. Aorta: Abdominal aortic aneurysm measuring 3.1 cm. Atherosclerotic calcification of the abdominal aorta and bilateral iliac vessels. Celiac trunk and mesenteric arteries: No occlusion or significant stenosis. Renal arteries: No occlusion or significant stenosis. CHEST: Lungs: Unremarkable. No consolidation. No masses. Pleural spaces: Small left pleural effusion. Heart: Unremarkable. No cardiomegaly. No pericardial effusion. ABDOMEN AND PELVIS: Liver: Liver surface is nodular representing cirrhotic changes. Gallbladder and bile ducts: Cholecystectomy clips. Pancreas: Unremarkable. No mass. No ductal dilation. Spleen: Unremarkable. No splenomegaly. Adrenal glands: Unremarkable. No mass. Kidneys and ureters: Unremarkable. No solid mass. No hydronephrosis. Stomach and bowel: Unremarkable. No obstruction. No mucosal thickening. Intraperitoneal space: Small amount of free fluid in the abdomen and pelvis. Lymph nodes: Unremarkable. No enlarged lymph nodes. Bones/joints: Degenerative changes of the spine. Hardware in the cervical spine. Soft tissues: Suprapubic cystostomy. Skin thickening in the right posterior gluteal region with foci of air in the subcutaneous tissue and a small fluid collection measuring 1.4 x 0.9 cm representing a small abscess IMPRESSION: Abdominal aortic aneurysm measuring 3.1 cm. No evidence for dissection. Small fluid collection/abscess in the right gluteal region measuring 1.4 x 0.9 cm. Cirrhosis with small amount of ascites in the abdomen and pelvis. Dictated and Authenticated by: Cuco Young MD. Ordering:MARIS Loera MD
--- NOTE | 2023-03-10 23:45 | DI.VRAD_ITS ---
Addendum created by Cuco Young DO on 03/10/2023 11:45:00 PM EDT: This is an addendum to prior report on CT abdomen and pelvis dated 01/28/2023 at 8:01 p.m.. Fat stranding in the left lateral upper abdominal wall. Findings may suggest inflammation. Initial report created on 03/10/2023 11:32:55 PM EDT: PROCEDURE INFORMATION: Exam: CTA Chest With Contrast CTA Abdomen With Contrast Exam date and time: 03/10/2023 10:24 PM Age: 82 years old Clinical indication: Other: Not eating; Shortness of breath and other: Hypoxic; Patient HX: Altered, SOB, quadriplegic, rule out pe; Additional info: Elevated bili, not eating TECHNIQUE: Imaging protocol: Computed tomographic angiography of the chest with contrast. Exam focused on the arteries. Computed tomographic angiography of the abdomen with contrast. Exam focused on the arteries. 3D rendering (Not supervised by radiologist): MIP and/or 3D reconstructed images were created by the technologist. Radiation optimization: All CT scans at this facility use at least one of these dose optimization techniques: automated exposure control; mA and/or kV adjustment per patient size (includes targeted exams where dose is matched to clinical indication); or iterative reconstruction. Contrast material: OMNIPAQUE 350; Contrast volume: 100 ml; Contrast route: INTRAVENOUS (IV); COMPARISON: CT CHEST/ABD/PEL WO 01/28/2023 8:01 PM FINDINGS: VASCULATURE: Pulmonary arteries: Normal. No pulmonary emboli. Aorta: Abdominal aortic aneurysm measuring 3.1 cm. Atherosclerotic calcification of the abdominal aorta and bilateral iliac vessels. Celiac trunk and mesenteric arteries: No occlusion or significant stenosis. Renal arteries: No occlusion or significant stenosis. CHEST: Lungs: Unremarkable. No consolidation. No masses. Pleural spaces: Small left pleural effusion. Heart: Unremarkable. No cardiomegaly. No pericardial effusion. ABDOMEN AND PELVIS: Liver: Liver surface is nodular representing cirrhotic changes. Gallbladder and bile ducts: Cholecystectomy clips. Pancreas: Unremarkable. No mass. No ductal dilation. Spleen: Unremarkable. No splenomegaly. Adrenal glands: Unremarkable. No mass. Kidneys and ureters: Unremarkable. No solid mass. No hydronephrosis. Stomach and bowel: Unremarkable. No obstruction. No mucosal thickening. Intraperitoneal space: Small amount of free fluid in the abdomen and pelvis. Lymph nodes: Unremarkable. No enlarged lymph nodes. Bones/joints: Degenerative changes of the spine. Hardware in the cervical spine. Soft tissues: Suprapubic cystostomy. Skin thickening in the right posterior gluteal region with foci of air in the subcutaneous tissue and a small fluid collection measuring 1.4 x 0.9 cm representing a small abscess IMPRESSION: Abdominal aortic aneurysm measuring 3.1 cm. No evidence for dissection. Small fluid collection/abscess in the right gluteal region measuring 1.4 x 0.9 cm. Cirrhosis with small amount of ascites in the abdomen and pelvis. Dictated and Authenticated by: Cuco Young MD. Ordering:MARIS Lorea MD
[2023-03-11] VITALS (21 sets, daily range): BP systolic 90–113; BP diastolic 52–73; PULSE 98–137; RESP 20–56; TEMP 38.5; O2SAT 90–95
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
[2023-03-11] MEDS: Hydrocortisone SOD SUC. 100 MG VIAL IVP ×2 (00:35→01:30)
[2023-03-11] MEDS: Normal Saline 1,000 ML 125 ML IV ×3 (00:35→10:39)
[2023-03-11 00:48] LABS: Lactate 2.4 mmol/L (0.6-1.4)
[2023-03-11 00:55] LABS: ESR 8 mm/hr (0-30)
[2023-03-11 01:01] LABS: C-Reactive Protein 0.12 mg/dL (0.0-0.3)
[2023-03-11] MEDS: PIPERACILLIN/TAZO 3.375 GM in Normal Saline 50 ML IVPB ×2 (01:10→01:20)
[2023-03-11] MEDS: ACETAMINOPHEN 1,000 MG/100 ML BTL 100 MG (01:20)
[2023-03-11 01:52] LABS: Anion Gap 8.6 mmol/L (3-11); BUN 18 mg/dL (7-18); CO2 22.4 mmol/L (21.0-32.0); CREATININE 0.8 mg/dL (0.55-1.02); Calcium 7.6 mg/dL (8.5-10.1); Chloride 110 mmol/L (98-107); Estimated GFR 73.52 (mL/min/1.73m2); Glucose 159 mg/dL (74-106); Sodium 141 mmol/L (136-145)
[2023-03-11 01:58] LABS: Procalcitonin 0.5 ng/mL
--- NOTE | 2023-03-11 06:10 | NUR.NOTE ---
lab unable to get blood off of patient, none of her IV's would draw back. Dr. Dejesus notified
[2023-03-11 07:05] LABS: HCT 34.4 % (36.0-46.0); MCH 32.4 pg (27.0-33.0); MCV 102 fL (80-95); MPV 9.6 fL (8.0-11.0); Platelet Count 258 10^3/uL (130-400); RBC 3.39 10^6/uL (3.93-5.22); RDW 15.1 % (11.7-14.6); RDW-SD 56.2 fL; WBC 9.87 10^3/uL (4.4-10.8)
[2023-03-11 07:46] LABS: ALT 16 U/L (14-59); AST 16 U/L (15-37); Albumin 2.3 g/dL (3.4-5.0); Alkaline Phosphatase 51 U/L (46-116); BUN 22 mg/dL (7-18); Bilirubin, Total 0.3 mg/dL (0.2-1.0); CREATININE 0.8 mg/dL (0.55-1.02); Calcium 8.2 mg/dL (8.5-10.1); Chloride 109 mmol/L (98-107); Estimated GFR 73.52 (mL/min/1.73m2); Glucose 199 mg/dL (74-106); Magnesium 1.6 mg/dL (1.8-2.4); Sodium 140 mmol/L (136-145); Total Protein 5.8 g/dL (6.4-8.2)
[2023-03-11] MEDS: Scopolamine 1 MG/3 DAYS PATCH TD (07:46)
[2023-03-11] MEDS: MORPHine 4 MG/ML SYR IV/SC ×5 (07:46→23:39)
[2023-03-11] MEDS: Normal Saline Flush 10 ML SYR IVP ×6 (07:48→23:39)
[2023-03-11] MEDS: LORazepam 2 MG/ML VIAL IV/SC ×2 (09:23→21:38)
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
--- NOTE | 2023-03-11 17:25 | W.PM.PROGNOT ---
Date of Service Date of service: 03/11/23 Time of Service: 17:25 Assessment and Plan Assessment and plan (1) Comfort measures only status: Status: Acute Assessment and plan: palliative care following. orders placed. adjust meds as needed. will stay here for end of life care discussed with Dr Rosado. Subjective Subjective Interval history since last seen: minimally responsive Exam Const General: comfortable, no acute distress, well developed and well groomed Nutritional Appearance: average body habitus Orientation: obtunded HENDC Head: normal to inspection Eyes General: appearance normal, both eyes and all related structures Resp Effort & Inspection: normal respiratory effort Cardio Rate: regular rate Rhythm: regular rhythm Extrem Other: - Contractures of hands and feet Mild edema of lower extremities Objective Last Vital Signs Temp 38.5 C H 03/11/23 07:56 Pulse 98 H 03/11/23 07:56 Resp 20 03/11/23 07:56 BP 110/73 03/11/23 07:56 Pulse Ox 95 03/11/23 09:11 Laboratory Results - last 24 hr 03/10/23 03/10/23 03/10/23 20:15 20:15 20:15 WBC 14.41 H RBC 4.21 Hgb 13.8 D Hct 42.7 MCV 101 H MCH 32.8 MCHC 32.3 RDW 15.0 H Plt Count 362 D MPV 9.5 Immature Gran % 1.7 Neutrophils % 85.4 Lymphocytes % 9.3 Monocytes % 2.9 Eosinophils % 0.1 Basophils % 0.6 Nucleated RBC % 0.0 Absolute Neutrophils 12.31 H Absolute Lymphocytes 1.34 Absolute Monocytes 0.42 Absolute Eosinophils 0.01 Absolute Basophils 0.09 ESR PT INR APTT VBG pH VBG pCO2 VBG pO2 VBG HCO3 VBG Total CO2 VBG O2 Saturation VBG Base Excess VBG Lactate 3.2 H* Sodium 138 Potassium 6.0 H D Chloride 106 Carbon Dioxide 21.8 Anion Gap 10.2 BUN 17 Creatinine 0.9 Est GFR (CKD-EPI 2020) 63.83 Glucose 187 H Calcium 8.4 L Magnesium Total Bilirubin 0.5 AST 32 ALT 19 Alkaline Phosphatase 62 Troponin I < 50 C-Reactive Protein NT-Pro-B Natriuret Pep 1184 H Total Protein 6.6 Albumin 2.6 L Procalcitonin TSH 13.35 H Free T4 1.33 Urine Color Urine Clarity Urine pH Ur Specific [place] Urine Protein Urine Ketones Urine Blood Urine Nitrite Urine Bilirubin Urine Urobilinogen Ur Leukocyte Esterase Urine RBC Urine WBC Ur Epithelial Cells Urine Crystals Urine Bacteria Urine Mucus Ur Culture Indicated? Urine Glucose 03/10/23 03/10/23 03/10/23 20:15 20:15 21:20 WBC RBC Hgb Hct MCV MCH MCHC RDW Plt Count MPV Immature Gran % Neutrophils % Lymphocytes % Monocytes % Eosinophils % Basophils % Nucleated RBC % Absolute Neutrophils Absolute Lymphocytes Absolute Monocytes Absolute Eosinophils Absolute Basophils ESR PT 11.1 H INR 1.1 APTT 20.1 L VBG pH 7.33 VBG pCO2 41 VBG pO2 37 VBG HCO3 22 L VBG Total CO2 20 L VBG O2 Saturation 67 VBG Base Excess -4 L VBG Lactate Sodium Potassium Chloride Carbon Dioxide Anion Gap BUN Creatinine Est GFR (CKD-EPI 2020) Glucose Calcium Magnesium Total Bilirubin AST ALT Alkaline Phosphatase Troponin I C-Reactive Protein NT-Pro-B Natriuret Pep Total Protein Albumin Procalcitonin TSH Free T4 Urine Color Yellow Urine Clarity Clear Urine pH 6.0 Ur Specific [place] 1.015 Urine Protein 100 H Urine Ketones Trace H Urine Blood Small H Urine Nitrite Negative Urine Bilirubin Negative Urine Urobilinogen 0.2 Ur Leukocyte Esterase Negative Urine RBC 3-5 H Urine WBC 0-2 Ur Epithelial Cells Rare Urine Crystals Negative Urine Bacteria Rare Urine Mucus Trace Ur Culture Indicated? No Urine Glucose Negative 03/11/23 03/11/23 03/11/23 00:15 00:15 00:15 WBC RBC Hgb Hct MCV MCH MCHC RDW Plt Count MPV Immature Gran % Neutrophils % Lymphocytes % Monocytes % Eosinophils % Basophils % Nucleated RBC % Absolute Neutrophils Absolute Lymphocytes Absolute Monocytes Absolute Eosinophils Absolute Basophils ESR 8 PT INR APTT VBG pH VBG pCO2 VBG pO2 VBG HCO3 VBG Total CO2 VBG O2 Saturation VBG Base Excess VBG Lactate Sodium Potassium Chloride Carbon Dioxide Anion Gap BUN Creatinine Est GFR (CKD-EPI 2020) Glucose Calcium Magnesium Total Bilirubin AST ALT Alkaline Phosphatase Troponin I C-Reactive Protein 0.12 NT-Pro-B Natriuret Pep Total Protein Albumin Procalcitonin 0.5 TSH Free T4 Urine Color Urine Clarity Urine pH Ur Specific [place] Urine Protein Urine Ketones Urine Blood Urine Nitrite Urine Bilirubin Urine Urobilinogen Ur Leukocyte Esterase Urine RBC Urine WBC Ur Epithelial Cells Urine Crystals Urine Bacteria Urine Mucus Ur Culture Indicated? Urine Glucose 03/11/23 03/11/23 03/11/23 00:15 00:15 06:50 WBC RBC Hgb Hct MCV MCH MCHC RDW Plt Count MPV Immature Gran % Neutrophils % Lymphocytes % Monocytes % Eosinophils % Basophils % Nucleated RBC % Absolute Neutrophils Absolute Lymphocytes Absolute Monocytes Absolute Eosinophils Absolute Basophils ESR PT INR APTT VBG pH VBG pCO2 VBG pO2 VBG HCO3 VBG Total CO2 VBG O2 Saturation VBG Base Excess VBG Lactate 2.4 H* Sodium 141 140 Potassium 5.0 D 5.0 Chloride 110 H 109 H Carbon Dioxide 22.4 21.0 Anion Gap 8.6 10.0 BUN 18 22 H Creatinine 0.8 0.8 Est GFR (CKD-EPI 2020) 73.52 73.52 Glucose 159 H 199 H Calcium 7.6 L 8.2 L Magnesium 1.6 L Total Bilirubin 0.3 AST 16 ALT 16 Alkaline Phosphatase 51 Troponin I C-Reactive Protein NT-Pro-B Natriuret Pep Total Protein 5.8 L Albumin 2.3 L Procalcitonin TSH Free T4 Urine Color Urine Clarity Urine pH Ur Specific [place] Urine Protein Urine Ketones Urine Blood Urine Nitrite Urine Bilirubin Urine Urobilinogen Ur Leukocyte Esterase Urine RBC Urine WBC Ur Epithelial Cells Urine Crystals Urine Bacteria Urine Mucus Ur Culture Indicated? Urine Glucose 03/11/23 06:50 WBC 9.87 RBC 3.39 L Hgb 11.0 L D Hct 34.4 L MCV 102 H MCH 32.4 MCHC 32.0 RDW 15.1 H Plt Count 258 MPV 9.6 Immature Gran % Neutrophils % Lymphocytes % Monocytes % Eosinophils % Basophils % Nucleated RBC % Absolute Neutrophils Absolute Lymphocytes Absolute Monocytes Absolute Eosinophils Absolute Basophils ESR PT INR APTT VBG pH VBG pCO2 VBG pO2 VBG HCO3 VBG Total CO2 VBG O2 Saturation VBG Base Excess VBG Lactate Sodium Potassium Chloride Carbon Dioxide Anion Gap BUN Creatinine Est GFR (CKD-EPI 2020) Glucose Calcium Magnesium Total Bilirubin AST ALT Alkaline Phosphatase Troponin I C-Reactive Protein NT-Pro-B Natriuret Pep Total Protein Albumin Procalcitonin TSH Free T4 Urine Color Urine Clarity Urine pH Ur Specific [place] Urine Protein Urine Ketones Urine Blood Urine Nitrite Urine Bilirubin Urine Urobilinogen Ur Leukocyte Esterase Urine RBC Urine WBC Ur Epithelial Cells Urine Crystals Urine Bacteria Urine Mucus Ur Culture Indicated? Urine Glucose Time Spent with Patient Time Spent with Patient: 25-34 minutes Time was spent: preparing to see the patient(eg.review tests), ordering medications,tests, procedures, referring, communicating with other health care tech and counseling the patient (family)
[2023-03-11] MEDS: MORPHine 2 MG/ML SYR IVP (17:30)
--- NOTE | 2023-03-11 18:28 | NUR.NOTE ---
Nursing Note: Please call family members in the following order should there be any changes to pt's status overnight: Luci; [phone] [place]; [phone] [place]; [phone]
[2023-03-12] MEDS: MORPHine 2 MG/ML SYR IVP (02:13)
[2023-03-12] MEDS: Normal Saline Flush 10 ML SYR IVP ×6 (05:01→23:53)
[2023-03-12] MEDS: MORPHine 4 MG/ML SYR IV/SC ×6 (05:01→23:54)
[2023-03-12 08:00] VITALS: O2SAT 95
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
[2023-03-12] MEDS: Glycopyrrolate 0.2 MG/1 ML VIAL IVP (10:36)
[2023-03-12] MEDS: LORazepam 2 MG/ML VIAL IV/SC (15:20)
--- NOTE | 2023-03-12 16:12 | CHAPLAIN ---
Heavenyl remains minimally responsive today. Following a family meeting yesterday with Lillie Reyes NP from [facility], the family decided that Heavenly will remain here, on comfort measures. I spoke with the family, (daughter?) who was with Heavenly this morning and she said the family feels like they have made the right decision about Heavenly's care, but it was a difficult decision to make and they still thinking about it, but not second guessing themselves. I let her know that band leader support is available 09/03.
--- NOTE | 2023-03-12 17:10 | PGE_ITS ---
Date of Service Date of service: 03/12/23 Time of Service: 17:10 Assessment and Plan Assessment and plan (1) Comfort measures only status: Status: Acute Assessment and plan: palliative care following. orders placed. adjust meds as needed. will stay here for end of life care discussed with Dr Rosado. Subjective Subjective Interval history since last seen: remains unresponsive, family at bedside Exam Const General: comfortable and no acute distress Orientation: obtunded HENMT Head: normal to inspection Resp Effort & Inspection: normal respiratory effort Cardio Rate: regular rate Extrem Other: - Contractures of hands and feet Mild edema of lower extremities Objective Last Vital Signs Temp 38.5 C H 03/11/23 07:56 Pulse 98 H 03/11/23 07:56 Resp 20 03/11/23 07:56 BP 110/73 03/11/23 07:56 Pulse Ox 95 03/12/23 08:00 Time Spent with Patient Time Spent with Patient: 25-34 minutes Time was spent: preparing to see the patient(eg.review tests), referring, commu nicating with other health nurse behavioral health care and care coordination
[2023-03-13] MEDS: MORPHine 2 MG/ML SYR IVP ×2 (05:55→10:11)
[2023-03-13] MEDS: Normal Saline Flush 10 ML SYR IVP ×4 (08:07→13:34)
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
[2023-03-13] MEDS: MORPHine 4 MG/ML SYR IV/SC (11:16)
--- NOTE | 2023-03-13 11:24 | PGE_ITS ---
Date of Service Date of service: 03/13/23 Time of Service: 11:25 Assessment and Plan Assessment and plan (1) Comfort measures only status: Status: Acute Assessment and plan: palliative care following. orders placed, started on dilaudid. adjust meds as needed. will stay here for end of life care discussed with Dr Rosado. Subjective Subjective Patient reports: no new complaints Interval history since last seen: less periods of awake, with confusion. not taking PO Exam Const General: comfortable and no acute distress HENMT Head: normal to inspection Resp Effort & Inspection: normal respiratory effort Cardio Rate: regular rate Extrem Other: - Contractures of hands and feet Mild edema of lower extremities Objective Last Vital Signs Temp 38.5 C H 03/11/23 07:56 Pulse 98 H 03/11/23 07:56 Resp 20 03/11/23 07:56 BP 110/73 03/11/23 07:56 Pulse Ox 95 03/12/23 08:00 Time Spent with Patient Time Spent with Patient: 25-34 minutes Time was spent: preparing to see the patient(eg.review tests), referring, communicating with other health home health care case manager and counseling the patient (patient)
[2023-03-13] MEDS: LORazepam 2 MG/ML VIAL IV/SC (13:33)
[2023-03-13] MEDS: HYDROmorphone 100 MG in CADD PUMP CASSETTE 1 EACH, Normal Saline 90 ML SC INF (13:54)
[2023-03-14] MEDS: Scopolamine 1 MG/3 DAYS PATCH TD (07:38)
--- NOTE | 2023-03-14 11:34 | PGE_ITS ---
Date of Service Date of service: 03/14/23 Time of Service: 11:34 Assessment and Plan Assessment and plan (1) Comfort measures only status: Status: Inactive Assessment and plan: palliative care following. continue to support family with end of life care expectations. adjust meds as needed. will stay here for end of life care discussed with Dr Curtis Subjective Subjective Patient reports: no new complaints Interval history since last seen: patient remains minimally responsive and appears comfortable. report that at one point she asked family member to help me, but has remained with no evidence of distress. Exam Const General: comfortable and no acute distress HENMT Head: normal to inspection Resp Effort & Inspection: normal respiratory effort Objective Last Vital Signs Temp 38.5 C H 03/11/23 07:56 Pulse 98 H 03/11/23 07:56 Resp 20 03/11/23 07:56 BP 110/73 03/11/23 07:56 Pulse Ox 95 03/12/23 08:00 Time Spent with Patient Time Spent with Patient: <25 minutes Time was spent: preparing to see the patient(eg.review tests), obtaining and/or reviewing separately otained hiistory, ordering medications,tests, procedures, referring, communicating with other health healthcare consultant, indepentently interpreting results, counseling the patient and care coordination
== END 2023-03-14 23:57 | disposition expired | DRG 871 ==
LOC: ER 03-11 01:29 → MS 03-11 02:45
PROVIDERS: Admitting Provider Family Medicine; Emergency Provider Student in an Organized Health Care Education/Training Program; Visit Provider Family Medicine
DX: A41.9 Sepsis, unspecified organism (principal); G82.50 Quadriplegia, unspecified; L89.153 Pressure ulcer of sacral region, stage 3; K65.1 Peritoneal abscess; J84.9 Interstitial pulmonary disease, unspecified; E46 Unspecified protein-calorie malnutrition; K59.2 Neurogenic bowel, not elsewhere classified; R18.8 Other ascites; Z51.5 Encounter for palliative care; E87.5 Hyperkalemia; R41.82 Altered mental status, unspecified; Z85.3 Personal history of malignant neoplasm of breast; M48.062 Spinal stenosis, lumbar region with neurogenic claudication; I10 Essential (primary) hypertension; I71.40 Abdominal aortic aneurysm, without rupture, unspecified; Z68.29 Body mass index [BMI] 29.0-29.9, adult; Z87.440 Personal history of urinary (tract) infections; Z74.01 Bed confinement status; R13.10 Dysphagia, unspecified; Z87.891 Personal history of nicotine dependence; F32.A Depression, unspecified; R53.1 Weakness; D64.9 Anemia, unspecified; E03.9 Hypothyroidism, unspecified; G90.4 Autonomic dysreflexia; K59.09 Other constipation; R74.01 Elevation of levels of liver transaminase levels; E83.42 Hypomagnesemia; E78.5 Hyperlipidemia, unspecified; Z66 Do not resuscitate; E11.9 Type 2 diabetes mellitus without complications; Z93.51 Cutaneous-vesicostomy status
CPT/HCPCS: 36415; 71275; 74177; 80048; 80053; 82805; 82962; 84145; 85027; 85652; 87040; 93005; 96361; 96374; 96375; 99291; 70450; 81003; 81015; 83605; 83735; 83880; 84439; 84443; 84484; 85025; 85610; 85730; 86140; 93010; 99223; 99232; J0131; J0612; J1170; J1720; J2060; J2270; J2543; J3490; J7613